=== PATIENT | female | born 1955 | race Caucasian/White ===

== ENCOUNTER → 2020-09-18 13:36 | Outpatient (CLI) | payer OTHER, SELFPAY ==
[2020-09-18 14:44] LABS: Alanine Aminotransferase 48 U/L (12-78); Albumin Level 4.5 g/dl (3.5-5.0); Albumin/Globulin Ratio 1.6 (1.1-1.8); Alkaline Phosphatase 197 U/L (38-126); Anion Gap 21.3 mEq/L (5-15); Aspartate Amino Transferase 130 U/L (14-36); Bilirubin,Total 0.6 mg/dl (0.2-1.3); Blood Urea Nitrogen 7 mg/dl (7-17); Calcium 9.7 mg/dl (8.4-10.2); Carbon Dioxide 16 mmol/L (22.0-30.0); Chloride 95 mmol/L (98-107); Estimated Glomerular Filt Rate 72 ml/min (>60); GFR (African American) 88 ML/MIN (>60); Globulin 2.8 g/dL (1.3-3.2); Glucose 102 mg/dl (74-100); Potassium 4.3 mmoL/L (3.5-5.1); Sodium 128 mmol/L (136-145); Total Protein,Serum 7.3 g/dl (6.3-8.2)
[2020-09-18 15:14] LABS: Thyroid Stimulating Hormone 3.87 uIU/mL (0.465-4.68)
[2020-09-18 19:04] LABS: Free T4 (Free Thyroxine) 1.12 ng/dl (0.78-2.19)
== END ==
PROVIDERS: Visit Provider Physician Assistant
DX: I10 Essential (primary) hypertension (principal); E03.9 Hypothyroidism, unspecified
CPT/HCPCS: 80053; 84439; 84443

== ENCOUNTER 2024-07-26 15:39 | Observation (INO) | payer MEDICARE, SELFPAY ==
[2024-07-26] VITALS (10 sets, daily range): BP systolic 100–121; BP diastolic 51–71; PULSE 81–90; RESP 16–20; TEMP 36.6–36.9; O2SAT 95–97; BMI 20.1
--- NOTE | 2024-07-26 15:53 | CT_ITS ---
PROCEDURE INFORMATION: Exam: CT Head Without Contrast Exam date and time: 07/26/2024 4:27 PM Age: 69 years old Clinical indication: Injury or trauma; Fall; Blunt trauma (contusions or hematomas); Consciousness not specified TECHNIQUE: Imaging protocol: Computed tomography of the head without contrast. Radiation optimization: All CT scans at this facility use at least one of these dose optimization techniques: automated exposure control; mA and/or kV adjustment per patient size (includes targeted exams where dose is matched to clinical indication); or iterative reconstruction. COMPARISON: CT CERVICAL SPINE WO CON 07/26/2024 4:27 PM FINDINGS: Brain: Age-related involutional changes and chronic microvascular ischemic disease. No evidence for acute transcortical infarct. No mass effect or midline shift. No extra-axial collection. No acute intracranial hemorrhage. Basal cisterns are patent. Cerebral ventricles: No ventriculomegaly. Paranasal sinuses: Mucosal thickening involving the left maxillary sinus. Mastoid air cells: Visualized mastoid air cells are well aerated. Bones: Unremarkable. No acute fracture. Soft tissues: Unremarkable. IMPRESSION: No evidence for acute transcortical infarct, acute intracranial hemorrhage, or mass effect.
--- NOTE | 2024-07-26 15:53 | CT_ITS ---
PROCEDURE INFORMATION: Exam: CT Cervical Spine Without Contrast Exam date and time: 07/26/2024 4:27 PM Age: 69 years old Clinical indication: Injury or trauma; Fall; Blunt trauma TECHNIQUE: Imaging protocol: Computed tomography of the cervical spine without contrast. Radiation optimization: All CT scans at this facility use at least one of these dose optimization techniques: automated exposure control; mA and/or kV adjustment per patient size (includes targeted exams where dose is matched to clinical indication); or iterative reconstruction. COMPARISON: CT HEAD/BRAIN WO CON 07/26/2024 4:27 PM FINDINGS: Bones: No acute fracture or traumatic subluxation. No spondylolisthesis. The atlantooccipital and atlantoaxial articulations are intact. Occipital condyles are intact. Facet joint alignments are maintained. Age-related degenerative disc disease. Multilevel degenerative changes of the cervical spine. Lungs: Lung apices are normal. Soft tissues: No prevertebral soft tissue swelling. IMPRESSION: No acute fracture or traumatic subluxation.
--- NOTE | 2024-07-26 15:53 | XR_ITS ---
PROCEDURE INFORMATION: Exam: XR Chest Exam date and time: 07/26/2024 4:31 PM Age: 69 years old Clinical indication: Injury or trauma; Fall; Blunt trauma (contusions or hematomas) TECHNIQUE: Imaging protocol: Radiologic exam of the chest. Views: 1 view. COMPARISON: CT CERVICAL SPINE WO CON 07/26/2024 4:27 PM FINDINGS: Lungs: Clear lungs. Pleural spaces: No pneumothorax. No sizable pleural effusion. Heart/Mediastinum: No cardiomegaly. Bones/joints: Unremarkable. IMPRESSION: Clear lungs.
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
[2024-07-26 16:15] LABS: Basophils # 0.1 K/mm3 (0-0.2); Eosinophils # 0.1 K/mm3 (0.0-0.4); Hematocrit 32.5 % (37.0-47.0); Hemoglobin 10.6 g/dL (12.2-16.2); Lymphocytes # 1.3 K/mm3 (0.7-4.5); Lymphocytes % 20.2 % (10-50); Mean Corpuscular HGB Conc 32.6 g/dL (31.8-35.4); Mean Corpuscular Hemoglobin 31.7 pg (27.0-31.2); Mean Corpuscular Volume 97.3 fl (81-99); Mean Platelet Volume 8.5 fl (7.4-10.4); Monocytes # 0.2 K/mm3 (0.1-1.0); Monocytes % 3.7 % (1.7-9.3); Neutrophils # 4.5 K/mm3 (1.8-7.8); Neutrophils % 71.7 % (37.0-80.0); Platelet Count 138 K/mm3 (142-424); Red Blood Count 3.34 M/mm3 (4.20-5.40); Red Cell Distribution Width 18.7 % (11.5-17.5); White Blood Count 6.3 K/mm3 (4.8-10.8)
[2024-07-26 16:22] LABS: Albumin Level 4.2 g/dl (3.5-5.0); Chloride 98 mmol/L (98-107)
[2024-07-26 16:23] LABS: Potassium 3.1 mmoL/L (3.5-5.1); Sodium 139 mmol/L (136-145)
--- NOTE | 2024-07-26 16:24 | PC.NURSE ---
pt to ct scan via stretcher
[2024-07-26 16:25] LABS: Alanine Aminotransferase 20 U/L (12-78); Alkaline Phosphatase 255 U/L (38-126); Anion Gap 21.1 mEq/L (5-15); Aspartate Amino Transferase 120 U/L (14-36); Bilirubin,Total 1.1 mg/dl (0.2-1.3); Blood Urea Nitrogen 2 mg/dl (7-17); Carbon Dioxide 23 mmol/L (22.0-30.0); Estimated Glomerular Filt Rate 123 ml/min (>60); GFR (African American) 149 ML/MIN (>60)
[2024-07-26 16:26] LABS: Albumin/Globulin Ratio 1.2 (1.1-1.8); Calcium 9.2 mg/dl (8.4-10.2); Ethyl Alcohol 230 mg/dl (0-10); Globulin 3.4 g/dL (1.3-3.2); Glucose 99 mg/dl (74-100); Lipase 96 U/L (23-300); Total Protein,Serum 7.6 g/dl (6.3-8.2)
[2024-07-26 16:30] LABS: Creatine Kinase < 20 U/L (30-135); Creatinine Clearance Estimated 49 mL/min (50-200)
--- NOTE | 2024-07-26 16:37 | ECG_ITS ---
APPROVED REPORT Exam: Resting ECG HR:82 bpm ECG Measurements Heart Rate 82 AXES IL 173 P 44 QRSd 94 QRS 58 QT 295 T 77 QTc 333 Conclusion SINUS RHYTHM LOW QRS VOLTAGE IN PRECORDIAL LEADS [QRS DEFLECTION < 1.0 mV IN CHEST LEADS] Wandering baseline, ST and T wave abnormalities in the inferior leads, no reciprocal changes, no STEMI Electronically signed by : CANDELARIA SOLOMON, 07/27/2024 06:06:49
--- NOTE | 2024-07-26 16:38 | PC.NURSE ---
ROUNDED ON THE PT. THE PT VOICES THAT SHE DOES NOT NEED ANYTHING AT THIS TIME. CALL LIGHT IS WITHIN REACH OF THE PT.
[2024-07-26 16:40] LABS: Troponin I < 0.01 ng/ml (0.00-0.034)
[2024-07-26] MEDS: MVI, ADULT NO.1 WITH VIT K 10 ML, THIAMINE HCL 100 MG, MAGNESIUM SULFATE 2 GM in LACTAT... 150 ML IV (17:09)
[2024-07-26] MEDS: FOLIC ACID 1MG TABLET 1 MG PO (17:14)
[2024-07-26 17:23] LABS: Microscopic, Urine URINE MICROSCOPIC (MICROSCOPIC)
--- NOTE | 2024-07-26 17:36 | PC.NURSE ---
ROUNDED ON THE PT. THE PT VOICES THAT SHE DOES NOT NEED ANYTHING AT THIS TIME. CALL LIGHT IS WITHIN REACH OF THE PT.
[2024-07-26 17:41] LABS: Appearance,Urine CLEAR (Clear); Blood, Urine Negative (Negative); Color,Urine YELLOW (Yellow); Glucose,Urine (UA) Negative (Negative); Ketones,Urine 1+ (Negative); Leukocyte Esterase,Urine 1+ (Negative); Nitrate,Urine Negative (Negative); Protein,Urine TRACE (Negative); Specific Gravity, Urine <= 1.005 (1.005-1.030)
[2024-07-26 18:20] LABS: Bilirubin,Urine 1+ (Negative)
[2024-07-26 18:22] LABS: Bacteria,Urine 1+ /lpf
[2024-07-26] MEDS: POTASSIUM CHLORIDE 20MEQ TAB 60 MEQ PO (18:32)
[2024-07-26 19:46] LABS: Troponin I < 0.01 ng/ml (0.00-0.034)
--- NOTE | 2024-07-26 19:49 | PC.NURSE ---
Rounding complete; no needs at this time
--- NOTE | 2024-07-26 20:00 | PC.NURSE ---
Rounding complete; no needs at this time
--- NOTE | 2024-07-26 20:14 | P.HP_ITS ---
<Statement entered by Adrián Pérez MD - 07/31/24 14:22> I personally examined the patient and agree with the plan of care outlined by the CERTIFED REFRIGERATION OPERATOR. History of Present Illness *Admission Date: 07/26/24 *Reason for visit:: Weakness *History of present illness: This is a 69-year-old female who has a past medical history significant for EtOH abuse, hypertension, hyperlipidemia who presents with a chief complaint of ground-level fall and weakness. Due to patient's symptoms, she presented to the emergency room for evaluation. While in the emergency room, CT scan of the head was negative for any acute intracranial process, CT scan of the cervical spine was negative for any acute process, and chest x-ray was negative. Patient had persistent weakness and some social concerns, so she has been admitted for further management. During my evaluation of the patient, patient states she fell from a standing position. Post fall, she was unable to get up. She states that her would not help her up off the ground or give her food. It is worth mentioning that patient did have an alcohol level that was elevated and her last reported drink was this morning. On exam patient does not appear to have any muscle wasting but she is very thin. She is currently denying any syncope, lightheadedness, dizziness, fever, chills, rigors, shortness of breath, chest pain, loss of bowel or bladder, nausea, vomiting, or diarrhea. Additional pertinent vitals obtained include a red blood cell count of 21.4, hemoglobin 10.6, hematocrit 32.5, platelet count of 138, potassium of 3.1, AST of 120, alkaline phosphate of 255, and serum alcohol level was 230. [facility] Disclaimer: The information contained in this section may have been updated after the bridger nt was seen, as this information can be updated by other users. Social History Smoking Status: Current every day smoker alcohol intake: current current occupational status: unemployed Travel in the last 8 weeks: None Review of Systems Review of Systems Review of systems:: pertinent systems reviewed and negative unless documented below Constitutional Constitutional: Reports system reviewed and no additional complaints, except as documented Eyes Eyes: Reports system reviewed and no additional complaints, except as documented ENT Ears, Nose, Mouth, and Throat: Reports system reviewed and no additional complaints, except as documented *Cardiovascular Cardiovascular: Reports system reviewed and no additional complaints, except as documented *Respiratory Respiratory: Reports system reviewed and no additional complaints, except as documented *Gastrointestinal Gastrointestinal: Reports system reviewed and no additional complaints, except as documented *Genitourinary Genitourinary: Reports system reviewed and no additional complaints, except as documented *Musculoskeletal Musculoskeletal: Reports atrophy and Reports muscle weakness Integumentary/Breasts Skin/Breast: Reports system reviewed and no additional complaints, except as documented *Neurologic Neurologic: Reports system reviewed and no additional complaints, except as documented Psychiatric Psychiatric: Reports system reviewed and no additional complaints, except as documented Endocrine Endocrine: Reports system reviewed and no additional complaints, except as documented Hematologic/Lymphatic Hematologic/Lymphatic: Reports system reviewed and no additional complaints, except as documented Allergic/Immunologic Allergic/Immunologic: Reports system reviewed and no additional complaints, except as documented Meds Home Medications and Allergies Home Medications ?Medication ?Instructions ?Recorded ?Confirmed ?Type Unobtainable 07/26/24 07/26/24 History New Prescriptions to Start Prescriptions: Allergies Allergy/AdvReac Type Severity Reaction Status Date / Time No Known Allergies Allergy Verified 07/26/24 16:27 Exam Data for Last 24 hours Vital signs and Labs for Last 24 Hours: Temp Pulse Resp BP Pulse Ox O2 Del Method 98.4 F 81 20 112/65 96 Room Air 07/26/24 15:39 07/26/24 19:30 07/26/24 19:30 07/26/24 19:30 07/26/24 17:30 07/26/24 17:30 Laboratory Results - last 24 hr 07/26/24 16:00: WBC 6.3, RBC 3.34 L, Hgb 10.6 L, Hct 32.5 L, MCV 97.3, MCH 31.7 H, MCHC 32.6, RDW 18.7 H, Plt Count 138 L, MPV 8.5, Neut % (Auto) 71.7, Lymph % (Auto) 20.2, [place] % (Auto) 3.7, Eos % (Auto) 1.0, Baso % (Auto) 1.0, Neut # (Auto) 4.5, Lymph # (Auto) 1.3, [place] # (Auto) 0.2, Eos # (Auto) 0.1, Baso # (Auto) 0.1, Sodium 139, Potassium 3.1 L, Chloride 98, Carbon Dioxide 23, Anion Gap 21.1 H, BUN 2 L, Creatinine 0.50 L, Estimated Creat Clear 49, Estimated GFR 123, Est GFR ( Amer) 149, Glucose 99, Calcium 9.2, Total Bilirubin 1.1, AST 120 H, ALT 20, Alkaline Phosphatase 255 H, Total Creatine Kinase < 20 L, Troponin I < 0.01, Total Protein 7.6, Albumin 4.2, Globulin 3.4 H, Albumin/Globulin Ratio 1.2, Lipase 96, Plasma/Serum Alcohol 230 H 07/26/24 17:15: Urine Color Yellow, Urine Appearance Clear, Urine pH 7.0, Ur Specific [place] <= 1.005, Urine Protein Trace, Urine Glucose (UA) Negative, Urine Ketones 1+, Urine Blood Negative, Urine Nitrate Negative, Urine Bilirubin 1+ A, Urine Urobilinogen 1.0, Ur Leukocyte Esterase 1+ A, Urine RBC None, Urine WBC 3-5, Ur Squamous Epith Cells 3-5, Urine Bacteria 1+ 07/26/24 18:59: Troponin I < 0.01 I & O for Last 24 hours: Intake & Output 07/23/24 07/24/24 07/25/24 07/26/24 23:59 23:59 23:59 23:59 Weight 56.518 kg Constitutional Constitutional: no acute distress and thin *Routine HEENT Exam Head: Present normocephalic and atraumatic Eye: Present EOMI, PERRL and normal accommodation ENT: Present mucous membranes moist and mucous membranes dry *Routine Neck Exam Neck: Present supple and full ROM *Routine Respiratory Exam Respiratory: Present normal respiratory effort and able to speak in complete sentences *Routine Cardiovascular Exam Cardiovascular: Present RRR, Normal S1 and Normal S2 *Routine Abdominal Exam Abdominal: Present soft and normoactive bowel sounds *Routine Rectal Exam Rectal:: deferred *Routine Genitalia Exam Genitalia:: deferred *Routine Extremities Exam Extremities: Present full ROM, pulses intact and normal capillary refill Routine Back/Spine/Pelvis Exam Back/Spine: Present full ROM *Routine Skin Exam Skin: Present intact, dry and warm *Routine Neurological Exam Neurological: Present alert, oriented X3, CN II-XII intact and normal speech Routine Psychiatric Exam Psychiatric: Present normal affect, normal thought process, cooperative, good insight and good judgment H&P: Result Impressions 69-year-old female presents with profound lower extremity weakness and was down for unknown period of time. Reports that would not help her up off the floor nor would he give her any food or water. Notably, patient does have an elevated alcohol level Assessment and Plan *Assessment and plan (1) Ground-level fall: Status: Acute Category: Medical Code(s): W18.30XA - Fall on same level, unspecified, initial encounter (2) Weakness: Status: Acute Category: Medical Code(s): R53.1 - Weakness (3) Hypokalemia: Status: Acute Category: Medical Code(s): E87.6 - Hypokalemia (4) Elevated liver enzymes: Status: Acute Category: Medical Code(s): R74.8 - Abnormal levels of other serum enzymes (5) Elevated ETOH level: Status: Acute Qualifiers: Blood alcohol level: 200-239 mg/100 ml Qualified Code(s): Y90.7 - Blood alcohol level of 200-239 mg/100 ml Category: Medical Code(s): R78.0 - Finding of alcohol in blood (6) Thrombocytopenia: Status: Acute Category: Medical Code(s): D69.6 - Thrombocytopenia, unspecified Plan Assessment: Ground-level fall without trauma -CT scans of head and cervical spine with within normal limits Weakness -Physical therapy evaluation -Occupational Therapy evaluation -Up to chair at least twice a day Hypokalemia -Patient was given 60 mEq of potassium while in the emergency room -Monitor potassium level daily Elevated liver enzymes -Most likely in the setting of chronic alcohol usage -Obtain hepatic ultrasound -Will consider hepatic workup EtOH intoxication -More than likely this will metabolize over the next 8 hours -Patient drinks about a pint of vodka a day -Place patient on CIWA protocol -100 mg of thiamine IV daily Thrombocytopenia -No active bleeding is seen -Most likely in setting of liver dysfunction Plan: Admit patient to the MedSurg unit Up to chair twice daily Vital signs every shift Cardiac diet CBC/BMP daily 40 mg Lovenox subcu daily for DVT prophylaxis 25 mg of hydralazine p.o. 3 times daily as needed systolic blood pressure greater than 180 or diastolic blood pressure greater than 110 21 mg nicotine patch daily 4 mg Zofran IV push. Hours. Nausea vomit Full code I will discuss this case with attending physician and I look forward to more input
--- NOTE | 2024-07-26 20:29 | PC.NURSE ---
Report given to Shruthi
--- NOTE | 2024-07-26 20:35 | PC.NURSE ---
pt arrived to floor from ed via stretcher at 2033.
[2024-07-26] MEDS: 0.9 % SODIUM CHLORIDE 1000ML 1,000 ML 100 ML IV (20:55)
[2024-07-26] MEDS: ENOXAPARIN 40MG/0.4ML SYRINGE 40 MG SUBCUT (20:55)
[2024-07-26] MEDS: NICOTINE 21MG/24HR PATCH 21 MG TD (20:55)
[2024-07-26] MEDS: ACETAMINOPHEN 325MG TAB 650 MG PO (22:04)
[2024-07-26 22:35] LABS: Troponin I < 0.01 ng/ml (0.00-0.034)
--- NOTE | 2024-07-26 23:40 | PC.NURSE ---
pt very pleasant and a&o x4. no skin issues. reports no significant past medical hx or that she takes any daily meds, only take Benadryl as needed for allergies or for sleep. states shes fallen twice in the last 6 months, both times she was drinking. reports she drinks about a cup of vodka a day 4-5 times a week and has never experienced withdraw symptoms. Kwasi called and states pt goes through a fifth of vodka every 5 days also saying pt has not ate well in the last 3 months saying she stays in the living room drinking . pt told this nurse she does need help with ADLs at home and she is unable to fix her own meals. pt does not use any assistive devices at home but she uses the furniture to walk around. fed pt a sandwich, chips, milk and water, pt ate <50%. CIWA score of 1 when pt got to floor, only complaint was a headache. pt aware to call out and not get up by herself. currently sleeping. cb within reach, bed alarm and seizure pads in place for pt safety. no concerns at this time
--- NOTE | 2024-07-27 | US_ITS ---
FINAL REPORT CLINICAL HISTORY: JOEY LIVER ENZYMES COMPARISON: None FINDINGS: Sonographic images of the right upper quadrant were obtained. The pancreas is partially obscured. The liver shows diffuse echogenicity compatible with fatty change. The liver is otherwise normal in size. No focal masses are seen. Multiple small gallstones measuring up to 4 mm are noted. There is no evidence of biliary ductal dilatation.The common duct measures 4mm. There is no ascites. Limited images of the right kidney are unremarkable. IMPRESSION: Fatty liver. Uncomplicated cholelithiasis. Reviewed, Interpreted and Dictated by Beatriz Davis MD Transcribed by Gayatri Varma Authenticated and . [facility]
[2024-07-27 04:00] VITALS: BP 105/66; PULSE 87; RESP 18; TEMP 36.8; O2SAT 96
[2024-07-27] MEDS: 0.9 % SODIUM CHLORIDE 1000ML 1,000 ML 100 ML IV (05:56)
[2024-07-27 07:12] LABS: Chloride 101 mmol/L (98-107); Sodium 134 mmol/L (136-145)
[2024-07-27 07:13] LABS: Potassium 3.9 mmoL/L (3.5-5.1)
[2024-07-27 07:16] LABS: Anion Gap 13.9 mEq/L (5-15); Blood Urea Nitrogen 5 mg/dl (7-17); Calcium 8.2 mg/dl (8.4-10.2); Carbon Dioxide 23 mmol/L (22.0-30.0); Creatinine Clearance Estimated 49 mL/min (50-200); Estimated Glomerular Filt Rate 123 ml/min (>60); GFR (African American) 149 ML/MIN (>60); Glucose 79 mg/dl (74-100)
[2024-07-27 07:35] LABS: Basophils % 0.7 % (0.1-2.0); Eosinophils # 0.1 K/mm3 (0.0-0.4); Eosinophils % 1.1 % (0.1-12.0); Hematocrit 25.4 % (37.0-47.0); Lymphocytes # 0.8 K/mm3 (0.7-4.5); Lymphocytes % 17.5 % (10-50); Mean Corpuscular HGB Conc 32.3 g/dL (31.8-35.4); Mean Corpuscular Hemoglobin 31.9 pg (27.0-31.2); Mean Corpuscular Volume 98.8 fl (81-99); Mean Platelet Volume 9.1 fl (7.4-10.4); Monocytes # 0.2 K/mm3 (0.1-1.0); Monocytes % 5.3 % (1.7-9.3); Neutrophils # 3.2 K/mm3 (1.8-7.8); Platelet Count 113 K/mm3 (142-424); Red Blood Count 2.57 M/mm3 (4.20-5.40); White Blood Count 4.4 K/mm3 (4.8-10.8)
[2024-07-27 07:49] VITALS: BP 106/57; PULSE 81; RESP 18; TEMP 36.8; O2SAT 98
--- NOTE | 2024-07-27 07:50 | PC.NURSE ---
Pauline in radiology called to inquire about pt NPO status due to order for liver ultrasound. pt had no NPO order in, therefore she received a cardiac tray this morning and ate. ultrasound rescheduled for 1300. pt NPO order placed and pt educated on NPO status. pt agreeable.
--- NOTE | 2024-07-27 08:22 | HMH.PHAINT1 ---
Pharmacy Intervention Comments: HOME MEDICATION LIST VERIFIED WITH PATIENT
[2024-07-27 08:40] VITALS: BP 106/57; BP 115/57; BP 116/64; PULSE 106; PULSE 84; PULSE 89
[2024-07-27 08:45] LABS: Hemoglobin 8.4 g/dL (12.2-16.2)
[2024-07-27 09:10] LABS: Magnesium 1.1 mg/dl (1.6-2.3); Phosphorous 2.6 mg/dl (2.5-4.5)
[2024-07-27 09:11] LABS: Alanine Aminotransferase 21 U/L (12-78); Albumin Level 3.2 g/dl (3.5-5.0); Albumin/Globulin Ratio 1.1 (1.1-1.8); Alkaline Phosphatase 238 U/L (38-126); Anion Gap 16.9 mEq/L (5-15); Aspartate Amino Transferase 111 U/L (14-36); Bilirubin,Total 1.2 mg/dl (0.2-1.3); Blood Urea Nitrogen 6 mg/dl (7-17); Calcium 8.4 mg/dl (8.4-10.2); Carbon Dioxide 23 mmol/L (22.0-30.0); Chloride 99 mmol/L (98-107); Creatinine Clearance Estimated 49 mL/min (50-200); Estimated Glomerular Filt Rate 123 ml/min (>60); GFR (African American) 149 ML/MIN (>60); Globulin 2.8 g/dL (1.3-3.2); Glucose 76 mg/dl (74-100); Potassium 3.9 mmoL/L (3.5-5.1); Sodium 135 mmol/L (136-145)
[2024-07-27 09:11] LABS: Prealbumin 20 mg/dL (10-36)
[2024-07-27] MEDS: THIAMINE 100MG TABLET 100 MG PO (09:31)
[2024-07-27] MEDS: PANTOPRAZOLE 40MG VIAL 40 MG IV (09:32)
[2024-07-27] MEDS: NICOTINE 21MG/24HR PATCH 21 MG TD (09:32)
[2024-07-27] MEDS: MVI, ADULT NO.1 WITH VIT K 10 ML, THIAMINE HCL 100 MG, MAGNESIUM SULFATE 2 GM in LACTAT... 125 ML IV (09:32)
[2024-07-27] MEDS: ENOXAPARIN 40MG/0.4ML SYRINGE 40 MG SUBCUT (09:32)
[2024-07-27] MEDS: SODIUM CHLORIDE 0.9% 10ML VIAL 10 ML IV (09:32)
--- NOTE | 2024-07-27 09:37 | HMH.OTEV ---
OT Inpatient Evaluation Rehab OT IP Evaluation Start: 07/26/24 20:08 Freq: ONCE Status: Active Protocol: Document 07/27/24 09:31 SAVANNAH (Rec: 07/27/24 09:37 [facility] [id number]) Rehab OT IP Assessment Subjective History Pt oriented x 3 on arrival. Pt agreeable to engage in therapy evaluation. Pt admitted to [facility] on 07/26/24 due to failure to thrive and weakness. History and physical: This is a 69-year-old female who has a past medical history significant for EtOH abuse, hypertension, hyperlipidemia who presents with a chief complaint of ground-level fall and weakness. Due to patient 's symptoms, she presented to the emergency room for evaluation. While in the emergency room, CT scan of the head was negative for any acute intracranial process, CT scan of the cervical spine was negative for any acute process, and chest x-ray was negative. Patient had persistent weakness and some social concerns, so she has been admitted for further management. During my evaluation of the patient, patient states she fell from a standing position. Post fall, she was unable to get up. She states that her would not help her up off the ground or give her food. It is worth mentioning that patient did have an alcohol level that was elevated and her last reported drink was this morning. On exam patient does not appear to have any muscle wasting but she is very thin. She is currently denying any syncope, lightheadedness, dizziness, fever, chills, rigors, shortness of breath, chest pain, loss of bowel or bladder , nausea, vomiting, or diarrhea. Additional pertinent vitals obtained include a red blood cell count of 21.4, hemoglobin 10.6, hematocrit 32.5, platelet count of 138, potassium of 3.1 , AST of 120, alkaline phosphate of 255, and serum alcohol level was 230. Subjective I didn't get out of bed much. Pt reports prior to being in the hospital, she lived at home with her . Pt claims normally she is independent with ADLs, but dependent upon for completion of all IADLs. Pt did not use a walker during functional transfers, but admits to furniture walking due to increased unsteadiness. Pt no longer drove. Pt also admits she did not get out of bed often due to weakness. Objective Patient Orientation Person,Place,Birthday Right Upper Extremity Gross ROM Min Limitation <25% Left Upper Extremity Gross ROM Min Limitation <25% Shoulder ROM Limitations Muscle Weakness Elbow ROM Limitations Muscle Weakness Wrist Limitations of Range of Motion Muscle Weakness Bed Mobility bed mobility-scooting,bed mobility - supine/sit Assist Level Contact Guard/Hand Hold Transfer Training Sit/Stand Transfer Assist Level Minimal x 2 (25% assist) Lower Body Dressing Ability Standby Assistance Rehab OT IP prob,goals,plan Problems Date of Evaluation: 07/27/24 OT IP Problems Bed Mobility,Gait,Balance,Self care,Safety Rehab Potential Rehab Potential Good Equipment Needs Assistive Devices Rolling / Wheeled Walker Plan OT intervention Plan Bed Mobility,Transfers,Balance ,Self care,Safety,Therapeutic Exercise OT Plan Frequency Daily Duration LOS Discharge Goals Bed Mobility Ability Standby Assistance Sit to Stand Chair Transfer Ability Contact Guard/Hand Hold, Minimal x 1 (25% assist) Chair Transfer Ability Contact Guard/Hand Hold, Minimal x 1 (25% assist) Chair Transfer Technique Sit to/from Ambulatory Chair Transfer Assistive Devices Rolling Walker Lower Body Dressing Ability Standby Assistance Upper Body Dressing Ability Standby Assistance Bathing Ability Standby Assistance Performing Toilet Hygiene Ability Standby Assistance Overall Commode/Toilet Transfer Ability Contact Guard Commode/Toilet Transfer Technique Sit to/from Ambulatory Discharge Plan OT Discharge Plan Pt will continue to be seen for OT services while at [facility]. Pt can return home with husbands assistance once she is medically stable per physician. Therapist recommends OT evaluation upon returning home for continued skilled therapy services. Eval Complexity Eval Charge Codes 99245 - Moderate Complexity PHYSICIAN CERTIFICATION: I certify the specified therapy services for Julia Jaime are required, authorized, and reviewed every 30 days.
[2024-07-27 09:52] LABS: Adenovirus,PCR Not Detected (NotDetected); Bordetella Pertussis Not Detected (NotDetected); Chlamydophila Pneumoniae, PCR Not Detected (NotDetected); Coronavirus 19, PCR Not Detected (NotDetected); Coronavirus 229E Not Detected (NotDetected); Coronavirus NL63 Not Detected (NotDetected); Coronavirus OC43 Not Detected (NotDetected); Coronovirus HKU1,PCR Not Detected (NotDetected); Human Metapneumovirus Not Detected (NotDetected); Influenza A, PCR Not Detected (NotDetected); Influenza AH1, 2009 Not Detected (NotDetected); Influenza AH1, PCR Not Detected (NotDetected); Influenza AH3,PCR Not Detected (NotDetected); Influenza B, PCR Not Detected (NotDetected); Mycoplasma Pneumoniae, PCR Not Detected (NotDetected); Parainfluenza 1, PCR Not Detected (NotDetected); Parainfluenza 2, PCR Not Detected (NotDetected); Parainfluenza 3, PCR Not Detected (NotDetected); Parainfluenza 4, PCR Not Detected (NotDetected); Respiratory Syncytial Virus Not Detected (NotDetected); Rhinovirus/Enterovirus Not Detected (NotDetected)
--- NOTE | 2024-07-27 10:08 | PC.NURSE ---
CIWA q4 dc due to pt scoring less than 8 for 3 consecutive measures
[2024-07-27 10:13] LABS: Free T4 (Free Thyroxine) 1.33 ng/dl (0.78-2.19)
--- NOTE | 2024-07-27 10:18 | SW/DCPLANNER ---
Addendum entered by [facility] 07/30/24 14:03: [facility] stated that patient will be accepted for services. Addendum entered by [facility] 07/30/24 12:03: Due to location patient information has been faxed to [facility] . Addendum entered by [facility] 07/30/24 08:01: Patient information/order faxed to Tia hernandez/ [facility]. Addendum entered by Yusra Reagan 07/27/24 15:22: Spoke with [facility] and they cant accept patient at this time because she doesnt have an established primary care. Bradley Clarke Addendum entered by [facility] 07/27/24 14:15: Patient information/order has been faxed to [facility]. Original Note: I spoke w/ this patient regarding plans once medically stable for discharge. PT/OT evaluated patient and recommended returning home w/ home health services. Patient is agreeable to home health and does not have an agency preference. Patient voiced that she does feel safe to return home w/ her . I did discuss inpatient vs outpatient alcohol resources w/ patient: not interested at this time but would like to to think about options. I also provided patient w/ [facility] Resource List which includes further information and includes local AA meeting dates and time. Patient will need a rolling walker at time of discharge and prefer this be ordered from [facility]. I will continue to follow up w/ this patient until medically stable for discharge. Discharge date is unknown at this time.
[2024-07-27 10:32] LABS: Thyroid Stimulating Hormone 6.47 uIU/mL (0.465-4.68)
--- NOTE | 2024-07-27 10:36 | HMH.PTEV ---
Physical Therapy Evaluation Rehab PT IP Evaluation Start: 07/26/24 20:08 Freq: ONCE Status: Active Protocol: Document 07/27/24 09:58 SHAKA (Rec: 07/27/24 10:36 SHAKA [id number]) Subjective/History History History 69-year-old female who has a past medical history significant for EtOH abuse, hypertension, hyperlipidemia who presents with a chief complaint of ground-level fall and weakness. She reports she lives with her , who helps with most of her ADLs, and she ambulates very little at baseline, but without using an AD. She states, I usually just go from my bedroom to my bathroom and hold onto stuff when I walk. She reports 4 HERRERA the home, no handrail. Subjective Subjective Currently she reports no c/o pain, but generally feels weak . She agrees to mobility assessment, but appears somewhat anxious to perform any OOB activity. Rehab PT IP Eval Objective Appearance Patient Behavior Appropriate Patient Orientation Person,Place,Time Difficulty following instructions none Speech Pattern Clear Ambulation Patient Able to Ambulate Yes Ambulation Observation IP General Gait Pattern Observation Shuffling Step Ambulation Distance (feet) 15 Ambulation Assistive Device None Ambulation Ability Minimal x 1 (25% assist) Balance Ability to Arise Able, uses arms to help Sitting Balance Steady, safe Standing Balance Unsteady Dynamic Sitting Balance Ability Good Dynamic Standing Balance Ability Poor Transfers Bed Transfer Ability Contact Guard/Hand Hold Chair Transfer Ability Contact Guard/Hand Hold Sit to Stand Bed Transfer Ability Contact Guard/Hand Hold Sit to Stand Chair Transfer Ability Contact Guard/Hand Hold Rehab PT IP prob,goals,plan Problems Date of Evaluation: 07/27/24 PT IP Problems Bed Mobility,Transfers,Gait Rehab Potential Rehab Potential Good Equipment Needs Assistive Devices Rolling / Wheeled Walker Plan PT Intervention Plan Bed Mobility,Transfers,Gait, Therapeutic Exercise PT Plan Frequency Daily Duration LOS Discharge Goals Bed Transfer Ability Contact Guard/Hand Hold Sit to Stand Chair Transfer Ability Supervision/Stand by Ambulation Assistive Device Rolling Walker Ambulation Distance (feet) 30 Discharge Plan PT Discharge Plan Pt is currently appropriate to return home with family assist once medically stable for d/c. Recommend home health therapy after return home. Skilled therapy is indicated to improve transfer, increase ambulation tolerance, and improve standing balance in order to return pt to [facility], Eval Complexity Eval Charge Codes 99576 - High Complexity PHYSICIAN CERTIFICATION: I certify the specified therapy services for Julia Jaime are required, authorized, and reviewed every 30 days.
[2024-07-27 10:51] LABS: Vitamin B12 715 pg/mL (239-931)
[2024-07-27 11:19] LABS: Folate 4.25 ng/mL
[2024-07-27 11:21] LABS: Amphetamine/Metha Screen,Urine Negative ng/ml (<1000); Barbiturates Screen,Urine Negative ng/ml (<200)
[2024-07-27 11:22] LABS: Benzodiazepines Screen,Urine Negative ng/ml (<200)
[2024-07-27 11:23] LABS: Opiate Screen,Urine Negative ng/ml (<300)
[2024-07-27 11:24] LABS: Phencyclidine Screen,Urine Negative ng/ml (<25)
[2024-07-27 11:25] LABS: Cannabinoid Screen,Urine Negative ng/ml (<50); Cocaine Screen,Urine Negative ng/ml (<300)
[2024-07-27 11:26] LABS: Methadone Screen,Urine Negative ng/ml (<300)
--- NOTE | 2024-07-27 12:04 | CARE MANAGER ---
Patient requires the use of walker for ambulation sandra she has a mobility impairment that cannot be corrected by a cane. TYRONE Amin
[2024-07-27 12:15] LABS: Iron 101 ug/dL (37-170)
[2024-07-27 12:24] LABS: Total Iron Binding Capacity 161 ug/dL (265-497)
[2024-07-27] MEDS: CEFTRIAXONE 1 GM 1 GM in 0.9 % SODIUM CHLORIDE 50 ML IV (12:31)
[2024-07-27 12:52] LABS: Ferritin 245 ng/ml (11.1-264)
--- NOTE | 2024-07-27 13:44 | EXP.DC.SUM ---
General Admission date:: 07/26/24 HPI HPI HPI: This is a 69-year-old female who has a past medical history significant for EtOH abuse, hypertension, hyperlipidemia who presents with a chief complaint of ground-level fall and weakness. Due to patient's symptoms, she presented to the emergency room for evaluation. While in the emergency room, CT scan of the head was negative for any acute intracranial process, CT scan of the cervical spine was negative for any acute process, and chest x-ray was negative. Patient had persistent weakness and some social concerns, so she has been admitted for further management. During my evaluation of the patient, patient states she fell from a standing position. Post fall, she was unable to get up. She states that her would not help her up off the ground or give her food. It is worth mentioning that patient did have an alcohol level that was elevated and her last reported drink was this morning. On exam patient does not appear to have any muscle wasting but she is very thin. She is currently denying any syncope, lightheadedness, dizziness, fever, chills, rigors, shortness of breath, chest pain, loss of bowel or bladder, nausea, vomiting, or diarrhea. Additional pertinent vitals obtained include a red blood cell count of 21.4, hemoglobin 10.6, hematocrit 32.5, platelet count of 138, potassium of 3.1, AST of 120, alkaline phosphate of 255, and serum alcohol level was 230. Hospital Course Hospital Course Hospital Course: Mr. Sow is a 69-year-old female with who presented after a fall after drinking and was admitted for physical deconditioning/functional decline. #Alcohol intoxication #Fall #UTI #Physical deconditioning ? Initial serum alcohol level 230, UA suggesting UTI. Patient states she uses alcohol for her insomnia. ? PT/OT consulted, recommended home health PT/OT. Patient has been referred. ? Discharged with cefdinir for 4 days. Strongly encouraged tapering alcohol. #Hypothyroidism ? TSH elevated to 6.47, free T4 normal. Has not filled her levothyroxine 50 mcg in a while. ? Discharged with levothyroxine 50 mcg. Recommend repeat TFTs with PCP in 4 to 6 weeks. #Insomnia ? Discharged with trazodone 25 to 50 mg as needed for sleep. #Low folic acid ? Discharged with multivitamin with folic acid. Total time spent on discharge: 32 minutes on chart review, counseling, documentation, and direct care with patient. Exam Data for Last 24 hours Vital signs and Labs for Last 24 Hours: Temp Pulse Resp BP Pulse Ox O2 Del Method 98.2 F 84 18 106/57 L 98 Room Air 07/27/24 07:49 07/27/24 08:40 07/27/24 07:49 07/27/24 08:40 07/27/24 07:49 07/27/24 11:00 Laboratory Results - last 24 hr 07/26/24 16:00: WBC 6.3, RBC 3.34 L, Hgb 10.6 L, Hct 32.5 L, MCV 97.3, MCH 31.7 H, MCHC 32.6, RDW 18.7 H, Plt Count 138 L, MPV 8.5, Neut % (Auto) 71.7, Lymph % (Auto) 20.2, [place] % (Auto) 3.7, Eos % (Auto) 1.0, Baso % (Auto) 1.0, Neut # (Auto) 4.5, Lymph # (Auto) 1.3, [place] # (Auto) 0.2, Eos # (Auto) 0.1, Baso # (Auto) 0.1, Sodium 139, Potassium 3.1 L, Chloride 98, Carbon Dioxide 23, Anion Gap 21.1 H, BUN 2 L, Creatinine 0.50 L, Estimated Creat Clear 49, Estimated GFR 123, Est GFR ( Amer) 149, Glucose 99, Calcium 9.2, Total Bilirubin 1.1, AST 120 H, ALT 20, Alkaline Phosphatase 255 H, Total Creatine Kinase < 20 L, Troponin I < 0.01, Total Protein 7.6, Albumin 4.2, Globulin 3.4 H, Albumin/Globulin Ratio 1.2, Prealbumin 20, Lipase 96, Plasma/Serum Alcohol 230 H 07/26/24 17:15: Urine Color Yellow, Urine Appearance Clear, Urine pH 7.0, Ur Specific [place] <= 1.005, Urine Protein Trace, Urine Glucose (UA) Negative, Urine Ketones 1+, Urine Blood Negative, Urine Nitrate Negative, Urine Bilirubin 1+ A, Urine Urobilinogen 1.0, Ur Leukocyte Esterase 1+ A, Urine RBC None, Urine WBC 3-5, Ur Squamous Epith Cells 3-5, Urine Bacteria 1+ 07/26/24 18:59: Troponin I < 0.01 07/26/24 22:00: Troponin I < 0.01 07/27/24 05:40: WBC 4.4 L D, RBC 2.57 L, Hgb 8.4 L D, Hct 25.4 L, MCV 98.8, MCH 31.9 H, MCHC 32.3, RDW 19.0 H, Plt Count 113 L, MPV 9.1, Neut % (Auto) 74.0, Lymph % (Auto) 17.5, [place] % (Auto) 5.3, Eos % (Auto) 1.1, Baso % (Auto) 0.7, Neut # (Auto) 3.2, Lymph # (Auto) 0.8, [place] # (Auto) 0.2, Eos # (Auto) 0.1, Baso # (Auto) 0.0, Sodium 134 L 07/27/24 05:40: Sodium 135 L, Potassium 3.9 D 07/27/24 05:40: Potassium 3.9, Chloride 101 07/27/24 05:40: Chloride 99, Carbon Dioxide 23 07/27/24 05:40: Carbon Dioxide 23, Anion Gap 13.9 07/27/24 05:40: Anion Gap 16.9 H, BUN 5 L D 07/27/24 05:40: BUN 6 L, Creatinine 0.50 L 07/27/24 05:40: Creatinine 0.50 L, Estimated Creat Clear 49 07/27/24 05:40: Estimated Creat Clear 49, Estimated GFR 123 07/27/24 05:40: Estimated GFR 123, Est GFR ( Amer) 149 07/27/24 05:40: Est GFR ( Amer) 149, Glucose 79 D 07/27/24 05:40: Glucose 76, Calcium 8.2 L 07/27/24 05:40: Calcium 8.4, Phosphorus 2.6, Magnesium 1.1 L, Total Bilirubin 1.2, AST 111 H, ALT 21, Alkaline Phosphatase 238 H, Total Protein 6.0 L, Albumin 3.2 L D, Globulin 2.8, Albumin/Globulin Ratio 1.1 07/27/24 09:15: Iron 101, TIBC 161 L, Iron Saturation 62.04798 H, Ferritin 245, Vitamin B12 715, Folate 4.25, TSH 6.47 H, Free T4 1.33 07/27/24 09:40: Chlamy pneumoniae PCR Not detected, Adenovirus (PCR) Not detected, B. pertussis DNA (PCR) Not detected, Coronavirus OC43 (PCR) Not detected, Coronavirus HKU1 (PCR) Not detected, Coronavirus 229E (PCR) Not detected, SARS-CoV-2 (PCR) Not detected, Coronavirus NL63 (PCR) Not detected, Human Metapneumovir PCR Not detected, Influenza A (H1) PCR Not detected, Influ A (H1N1/09) PCR Not detected, Influenza A (H3) PCR Not detected, Influenza Type A (PCR) Not detected, Influenza Type B (PCR) Not detected, M. pneumoniae (PCR) Not detected, Parainfluenza 1 (PCR) Not detected, Parainfluenza 2 (PCR) Not detected, Parainfluenza 3 (PCR) Not detected, Parainfluenza 4 (PCR) Not detected, RSV (PCR) Not detected, Entero/Rhino (PCR) Not detected 07/27/24 10:33: Urine Opiates Screen Negative, Urine Methadone Screen Negative, Ur Barbituates Screen Negative, Ur Phencyclidine Scrn Negative, Ur Amphetamines Screen Negative, U Benzodiazepines Scrn Negative, Urine Cocaine Screen Negative, U Marijuana (THC) Screen Negative I & O for Last 24 hours: Intake & Output 07/24/24 07/25/24 07/26/24 07/27/24 23:59 23:59 23:59 23:59 Intake Total 1629 / 1629 Output Total 0 / 0 Balance 1629 / 1629 Weight 56.608 kg 56.744 kg Constitutional Constitutional: no acute distress *Routine HEENT Exam Head: Present normocephalic Eye: Present EOMI and PERRL ENT: Present mucous membranes moist *Routine Neck Exam Neck: Present supple; Absent lymphadenopathy *Routine Respiratory Exam Respiratory: Present CTA bilaterally *Routine Cardiovascular Exam Cardiovascular: Present RRR *Routine Abdominal Exam Abdominal: Present soft and normoactive bowel sounds; Absent tenderness *Routine Extremities Exam Extremities: Absent cyanosis, clubbing or edema *Routine Skin Exam Skin: Present warm; Absent rash *Routine Neurological Exam Neurological: Present alert and oriented X3 Results Data Completed and Pending Labs on day of discharge: Labs from last 24 hours 07/27/24 07/27/2425 10:33 09:40 09:15 WBC RBC Hgb Hct MCV MCH MCHC RDW Plt Count MPV Neut % (Auto) Lymph % (Auto) [place] % (Auto) Eos % (Auto) Baso % (Auto) Neut # (Auto) Lymph # (Auto) [place] # (Auto) Eos # (Auto) Baso # (Auto) Sodium Potassium Chloride Carbon Dioxide Anion Gap BUN Creatinine Estimated Creat Clear Estimated GFR Est GFR ( Amer) Glucose Calcium Phosphorus Magnesium Iron 101 TIBC 161 L Iron Saturation 62.55688 H Ferritin 245 Total Bilirubin AST ALT Alkaline Phosphatase Total Creatine Kinase Troponin I Total Protein Albumin Globulin Albumin/Globulin Ratio Prealbumin Lipase Vitamin B12 715 Folate 4.25 TSH 6.47 H Free T4 1.33 Urine Color Urine Appearance Urine pH Ur Specific [place] Urine Protein Urine Glucose (UA) Urine Ketones Urine Blood Urine Nitrate Urine Bilirubin Urine Urobilinogen Ur Leukocyte Esterase Urine RBC Urine WBC Ur Squamous Epith Cells Urine Bacteria Urine Opiates Screen Negative Urine Methadone Screen Negative Ur Barbituates Screen Negative Ur Phencyclidine Scrn Negative Ur Amphetamines Screen Negative U Benzodiazepines Scrn Negative Urine Cocaine Screen Negative U Marijuana (THC) Screen Negative Plasma/Serum Alcohol Chlamy pneumoniae PCR Not detected Adenovirus (PCR) Not detected B. pertussis DNA (PCR) Not detected Coronavirus OC43 (PCR) Not detected Coronavirus HKU1 (PCR) Not detected Coronavirus 229E (PCR) Not detected SARS-CoV-2 (PCR) Not detected Coronavirus NL63 (PCR) Not detected Human Metapneumovir PCR Not detected Influenza A (H1) PCR Not detected Influ A (H1N1/09) PCR Not detected Influenza A (H3) PCR Not detected Influenza Type A (PCR) Not detected Influenza Type B (PCR) Not detected M. pneumoniae (PCR) Not detected Parainfluenza 1 (PCR) Not detected Parainfluenza 2 (PCR) Not detected Parainfluenza 3 (PCR) Not detected Parainfluenza 4 (PCR) Not detected RSV (PCR) Not detected Entero/Rhino (PCR) Not detected 07/27/24 07/27/24 07/27/24 05:40 05:40 05:40 WBC RBC Hgb Hct MCV MCH MCHC RDW Plt Count MPV Neut % (Auto) Lymph % (Auto) [place] % (Auto) Eos % (Auto) Baso % (Auto) Neut # (Auto) Lymph # (Auto) [place] # (Auto) Eos # (Auto) Baso # (Auto) Sodium Potassium Chloride Carbon Dioxide Anion Gap BUN Creatinine Estimated Creat Clear Estimated GFR Est GFR ( Amer) 149 Glucose 76 79 D Calcium 8.4 8.2 L Phosphorus 2.6 Magnesium 1.1 L Iron TIBC Iron Saturation Ferritin Total Bilirubin 1.2 AST 111 H ALT 21 Alkaline Phosphatase 238 H Total Creatine Kinase Troponin I Total Protein 6.0 L Albumin 3.2 L D Globulin 2.8 Albumin/Globulin Ratio 1.1 Prealbumin Lipase Vitamin B12 Folate TSH Free T4 Urine Color Urine Appearance Urine pH Ur Specific [place] Urine Protein Urine Glucose (UA) Urine Ketones Urine Blood Urine Nitrate Urine Bilirubin Urine Urobilinogen Ur Leukocyte Esterase Urine RBC Urine WBC Ur Squamous Epith Cells Urine Bacteria Urine Opiates Screen Urine Methadone Screen Ur Barbituates Screen Ur Phencyclidine Scrn Ur Amphetamines Screen U Benzodiazepines Scrn Urine Cocaine Screen U Marijuana (THC) Screen Plasma/Serum Alcohol Chlamy pneumoniae PCR Adenovirus (PCR) B. pertussis DNA (PCR) Coronavirus OC43 (PCR) Coronavirus HKU1 (PCR) Coronavirus 229E (PCR) SARS-CoV-2 (PCR) Coronavirus NL63 (PCR) Human Metapneumovir PCR Influenza A (H1) PCR Influ A (H1N1/09) PCR Influenza A (H3) PCR Influenza Type A (PCR) Influenza Type B (PCR) M. pneumoniae (PCR) Parainfluenza 1 (PCR) Parainfluenza 2 (PCR) Parainfluenza 3 (PCR) Parainfluenza 4 (PCR) RSV (PCR) Entero/Rhino (PCR) 07/27/24 07/27/24 07/27/24 05:40 05:40 05:40 WBC RBC Hgb Hct MCV MCH MCHC RDW Plt Count MPV Neut % (Auto) Lymph % (Auto) [place] % (Auto) Eos % (Auto) Baso % (Auto) Neut # (Auto) Lymph # (Auto) [place] # (Auto) Eos # (Auto) Baso # (Auto) Sodium Potassium Chloride Carbon Dioxide Anion Gap BUN Creatinine 0.50 L Estimated Creat Clear 49 49 Estimated GFR 123 123 Est GFR ( Amer) 149 Glucose Calcium Phosphorus Magnesium Iron TIBC Iron Saturation Ferritin Total Bilirubin AST ALT Alkaline Phosphatase Total Creatine Kinase Troponin I Total Protein Albumin Globulin Albumin/Globulin Ratio Prealbumin Lipase Vitamin B12 Folate TSH Free T4 Urine Color Urine Appearance Urine pH Ur Specific [place] Urine Protein Urine Glucose (UA) Urine Ketones Urine Blood Urine Nitrate Urine Bilirubin Urine Urobilinogen Ur Leukocyte Esterase Urine RBC Urine WBC Ur Squamous Epith Cells Urine Bacteria Urine Opiates Screen Urine Methadone Screen Ur Barbituates Screen Ur Phencyclidine Scrn Ur Amphetamines Screen U Benzodiazepines Scrn Urine Cocaine Screen U Marijuana (THC) Screen Plasma/Serum Alcohol Chlamy pneumoniae PCR Adenovirus (PCR) B. pertussis DNA (PCR) Coronavirus OC43 (PCR) Coronavirus HKU1 (PCR) Coronavirus 229E (PCR) SARS-CoV-2 (PCR) Coronavirus NL63 (PCR) Human Metapneumovir PCR Influenza A (H1) PCR Influ A (H1N1/09) PCR Influenza A (H3) PCR Influenza Type A (PCR) Influenza Type B (PCR) M. pneumoniae (PCR) Parainfluenza 1 (PCR) Parainfluenza 2 (PCR) Parainfluenza 3 (PCR) Parainfluenza 4 (PCR) RSV (PCR) Entero/Rhino (PCR) 07/27/24 07/27/24 07/27/24 05:40 05:40 05:40 WBC RBC Hgb Hct MCV MCH MCHC RDW Plt Count MPV Neut % (Auto) Lymph % (Auto) [place] % (Auto) Eos % (Auto) Baso % (Auto) Neut # (Auto) Lymph # (Auto) [place] # (Auto) Eos # (Auto) Baso # (Auto) Sodium Potassium Chloride Carbon Dioxide 23 Anion Gap 16.9 H 13.9 BUN 6 L 5 L D Creatinine 0.50 L Estimated Creat Clear Estimated GFR Est GFR ( Amer) Glucose Calcium Phosphorus Magnesium Iron TIBC Iron Saturation Ferritin Total Bilirubin AST ALT Alkaline Phosphatase Total Creatine Kinase Troponin I Total Protein Albumin Globulin Albumin/Globulin Ratio Prealbumin Lipase Vitamin B12 Folate TSH Free T4 Urine Color Urine Appearance Urine pH Ur Specific [place] Urine Protein Urine Glucose (UA) Urine Ketones Urine Blood Urine Nitrate Urine Bilirubin Urine Urobilinogen Ur Leukocyte Esterase Urine RBC Urine WBC Ur Squamous Epith Cells Urine Bacteria Urine Opiates Screen Urine Methadone Screen Ur Barbituates Screen Ur Phencyclidine Scrn Ur Amphetamines Screen U Benzodiazepines Scrn Urine Cocaine Screen U Marijuana (THC) Screen Plasma/Serum Alcohol Chlamy pneumoniae PCR Adenovirus (PCR) B. pertussis DNA (PCR) Coronavirus OC43 (PCR) Coronavirus HKU1 (PCR) Coronavirus 229E (PCR) SARS-CoV-2 (PCR) Coronavirus NL63 (PCR) Human Metapneumovir PCR Influenza A (H1) PCR Influ A (H1N1) PCR Influenza A (H3) PCR Influenza Type A (PCR) Influenza Type B (PCR) M. pneumoniae (PCR) Parainfluenza 1 (PCR) Parainfluenza 2 (PCR) Parainfluenza 3 (PCR) Parainfluenza 4 (PCR) RSV (PCR) Entero/Rhino (PCR) 07/27/24 07/27/24 07/27/24 05:40 05:40 05:40 WBC RBC Hgb Hct MCV MCH MCHC RDW Plt Count MPV Neut % (Auto) Lymph % (Auto) [place] % (Auto) Eos % (Auto) Baso % (Auto) Neut # (Auto) Lymph # (Auto) [place] # (Auto) Eos # (Auto) Baso # (Auto) Sodium 135 L Potassium 3.9 3.9 D Chloride 99 101 Carbon Dioxide 23 Anion Gap BUN Creatinine Estimated Creat Clear Estimated GFR Est GFR ( Amer) Glucose Calcium Phosphorus Magnesium Iron TIBC Iron Saturation Ferritin Total Bilirubin AST ALT Alkaline Phosphatase Total Creatine Kinase Troponin I Total Protein Albumin Globulin Albumin/Globulin Ratio Prealbumin Lipase Vitamin B12 Folate TSH Free T4 Urine Color Urine Appearance Urine pH Ur Specific [place] Urine Protein Urine Glucose (UA) Urine Ketones Urine Blood Urine Nitrate Urine Bilirubin Urine Urobilinogen Ur Leukocyte Esterase Urine RBC Urine WBC Ur Squamous Epith Cells Urine Bacteria Urine Opiates Screen Urine Methadone Screen Ur Barbituates Screen Ur Phencyclidine Scrn Ur Amphetamines Screen U Benzodiazepines Scrn Urine Cocaine Screen U Marijuana (THC) Screen Plasma/Serum Alcohol Chlamy pneumoniae PCR Adenovirus (PCR) B. pertussis DNA (PCR) Coronavirus OC43 (PCR) Coronavirus HKU1 (PCR) Coronavirus 229E (PCR) SARS-CoV-2 (PCR) Coronavirus NL63 (PCR) Human Metapneumovir PCR Influenza A (H1) PCR Influ A (H1N1) PCR Influenza A (H3) PCR Influenza Type A (PCR) Influenza Type B (PCR) M. pneumoniae (PCR) Parainfluenza 1 (PCR) Parainfluenza 2 (PCR) Parainfluenza 3 (PCR) Parainfluenza 4 (PCR) RSV (PCR) Entero/Rhino (PCR) 07/27/24 07/26/24 07/26/24 05:40 22:00 18:59 WBC 4.4 L D RBC 2.57 L Hgb 8.4 L D Hct 25.4 L MCV 98.8 MCH 31.9 H MCHC 32.3 RDW 19.0 H Plt Count 113 L MPV 9.1 Neut % (Auto) 74.0 Lymph % (Auto) 17.5 [place] % (Auto) 5.3 Eos % (Auto) 1.1 Baso % (Auto) 0.7 Neut # (Auto) 3.2 Lymph # (Auto) 0.8 [place] # (Auto) 0.2 Eos # (Auto) 0.1 Baso # (Auto) 0.0 Sodium 134 L Potassium Chloride Carbon Dioxide Anion Gap BUN Creatinine Estimated Creat Clear Estimated GFR Est GFR ( Amer) Glucose Calcium Phosphorus Magnesium Iron TIBC Iron Saturation Ferritin Total Bilirubin AST ALT Alkaline Phosphatase Total Creatine Kinase Troponin I < 0.01 < 0.01 Total Protein Albumin Globulin Albumin/Globulin Ratio Prealbumin Lipase Vitamin B12 Folate TSH Free T4 Urine Color Urine Appearance Urine pH Ur Specific [place] Urine Protein Urine Glucose (UA) Urine Ketones Urine Blood Urine Nitrate Urine Bilirubin Urine Urobilinogen Ur Leukocyte Esterase Urine RBC Urine WBC Ur Squamous Epith Cells Urine Bacteria Urine Opiates Screen Urine Methadone Screen Ur Barbituates Screen Ur Phencyclidine Scrn Ur Amphetamines Screen U Benzodiazepines Scrn Urine Cocaine Screen U Marijuana (THC) Screen Plasma/Serum Alcohol Chlamy pneumoniae PCR Adenovirus (PCR) B. pertussis DNA (PCR) Coronavirus OC43 (PCR) Coronavirus HKU1 (PCR) Coronavirus 229E (PCR) SARS-CoV-2 (PCR) Coronavirus NL63 (PCR) Human Metapneumovir PCR Influenza A (H1) PCR Influ A (H1N1/09) PCR Influenza A (H3) PCR Influenza Type A (PCR) Influenza Type B (PCR) M. pneumoniae (PCR) Parainfluenza 1 (PCR) Parainfluenza 2 (PCR) Parainfluenza 3 (PCR) Parainfluenza 4 (PCR) RSV (PCR) Entero/Rhino (PCR) 07/26/24 07/26/24 17:15 16:00 WBC 6.3 RBC 3.34 L Hgb 10.6 L Hct 32.5 L MCV 97.3 MCH 31.7 H MCHC 32.6 RDW 18.7 H Plt Count 138 L MPV 8.5 Neut % (Auto) 71.7 Lymph % (Auto) 20.2 [place] % (Auto) 3.7 Eos % (Auto) 1.0 Baso % (Auto) 1.0 Neut # (Auto) 4.5 Lymph # (Auto) 1.3 [place] # (Auto) 0.2 Eos # (Auto) 0.1 Baso # (Auto) 0.1 Sodium 139 Potassium 3.1 L Chloride 98 Carbon Dioxide 23 Anion Gap 21.1 H BUN 2 L Creatinine 0.50 L Estimated Creat Clear 49 Estimated GFR 123 Est GFR ( Amer) 149 Glucose 99 Calcium 9.2 Phosphorus Magnesium Iron TIBC Iron Saturation Ferritin Total Bilirubin 1.1 AST 120 H ALT 20 Alkaline Phosphatase 255 H Total Creatine Kinase < 20 L Troponin I < 0.01 Total Protein 7.6 Albumin 4.2 Globulin 3.4 H Albumin/Globulin Ratio 1.2 Prealbumin 20 Lipase 96 Vitamin B12 Folate TSH Free T4 Urine Color Yellow Urine Appearance Clear Urine pH 7.0 Ur Specific [place] <= 1.005 Urine Protein Trace Urine Glucose (UA) Negative Urine Ketones 1+ Urine Blood Negative Urine Nitrate Negative Urine Bilirubin 1+ A Urine Urobilinogen 1.0 Ur Leukocyte Esterase 1+ A Urine RBC None Urine WBC 3-5 Ur Squamous Epith Cells 3-5 Urine Bacteria 1+ Urine Opiates Screen Urine Methadone Screen Ur Barbituates Screen Ur Phencyclidine Scrn Ur Amphetamines Screen U Benzodiazepines Scrn Urine Cocaine Screen U Marijuana (THC) Screen Plasma/Serum Alcohol 230 H Chlamy pneumoniae PCR Adenovirus (PCR) B. pertussis DNA (PCR) Coronavirus OC43 (PCR) Coronavirus HKU1 (PCR) Coronavirus 229E (PCR) SARS-CoV-2 (PCR) Coronavirus NL63 (PCR) Human Metapneumovir PCR Influenza A (H1) PCR Influ A (H1N1/09) PCR Influenza A (H3) PCR Influenza Type A (PCR) Influenza Type B (PCR) M. pneumoniae (PCR) Parainfluenza 1 (PCR) Parainfluenza 2 (PCR) Parainfluenza 3 (PCR) Parainfluenza 4 (PCR) RSV (PCR) Entero/Rhino (PCR) DS: Diagnosis Discharge Diagnosis (1) Ground-level fall: Status: Acute Code(s): W18.30XA - Fall on same level, unspecified, initial encounter (2) Weakness: Status: Acute Code(s): R53.1 - Weakness (3) Hypokalemia: Status: Acute Code(s): E87.6 - Hypokalemia (4) Elevated liver enzymes: Status: Acute Code(s): R74.8 - Abnormal levels of other serum enzymes (5) Elevated ETOH level: Status: Acute Code(s): R78.0 - Finding of alcohol in blood Qualifiers: Blood alcohol level: 200-239 mg/100 ml Qualified Code(s): Y90.7 - Blood alcohol level of 200-239 mg/100 ml (6) Thrombocytopenia: Status: Acute Code(s): D69.6 - Thrombocytopenia, unspecified Meds Home Medications and Allergies Home Medications ?Medication ?Instructions ?Recorded ?Confirmed ?Type cefdinir 300 mg capsule 300 mg PO BID 4 days #8 caps 07/27/24 Rx levothyroxine 50 mcg capsule 50 mcg PO DAILY #30 caps 07/27/24 Rx multivitamin with folic acid 400 1 tab PO DAILY 30 days #30 tabs 07/27/24 Rx mcg tablet (Tab-A-Frank) omeprazole magnesium 20 mg 20 mg PO DAILY 07/27/24 07/27/24 History tablet,delayed release (Prilosec OTC) trazodone 50 mg tablet 50 mg PO HS PRN sleep #30 tabs 07/27/24 Rx New Prescriptions to Start Prescriptions: cefdinAdrián Serna levothyroxine Adrián Pérez multivitamin with folic acid [Tab-A-Frank] Adrián Préez trazodone Adrián Pérez Allergies Allergy/AdvReac Type Severity Reaction Status Date / Time No Known Allergies Allergy Verified 07/26/24 16:27 Discharge Plan Disposition Patient Disposition: Home, Self-Care Condition: Fair Follow up Plan Follow up with: Fatmata Velarde PA [Primary Care Provider] - Enter time for follow up (must call and register as new patient ) Prescriptions/Medication Reconciliation: New multivitamin with folic acid [Tab-A-Frank] 400 mcg Tablet 1 tab PO DAILY 30 Days Qty: 30 0RF cefdinir 300 mg capsule 300 mg PO BID 4 Days Qty: 8 0RF trazodone 50 mg tablet 50 mg PO HS PRN (Reason: sleep) Qty: 30 0RF levothyroxine 50 mcg capsule 50 mcg PO DAILY Qty: 30 0RF Continued omeprazole magnesium [Prilosec OTC] 20 mg Tablet,Delayed Release (Dr/Ec) 20 mg PO DAILY Other Ambulatory Orders: Home Medical Equipment (Routine) Location: None Selected Ordered By: Adrián Pérez Problem Reconciliation Problems Reviewed?: Yes Patient Discharge Instructions Patient Instructions: DI for Fatigue Print Language: Danish Providers Primary Care Provider: Fatmata Velarde Admit Provider: Adrián Pérez Attending Provider: Adrián Pérez
--- NOTE | 2024-07-31 10:58 | SW/DCPLANNER ---
Phoned patient x2. Each call patients phone will ring 1 time and then gives a busy signal. Bradley Clarke
== END 2024-07-27 15:27 | disposition home or self-care (01) ==
LOC: ER 17:04 → 2ND 20:23
PROVIDERS: Nurse Practitioner; Nurse Practitioner Family; Admitting Provider Student in an Organized Health Care Education/Training Program; Emergency Provider Emergency Medicine; PCP Physician Assistant; Visit Provider Student in an Organized Health Care Education/Training Program
DX: F10.229 Alcohol dependence with intoxication, unspecified (principal); R62.7 Adult failure to thrive; E87.6 Hypokalemia; R74.8 Abnormal levels of other serum enzymes; Y90.7 Blood alcohol level of 200-239 mg/100 ml; D69.6 Thrombocytopenia, unspecified; N39.0 Urinary tract infection, site not specified; E78.5 Hyperlipidemia, unspecified; I10 Essential (primary) hypertension; F17.210 Nicotine dependence, cigarettes, uncomplicated; Z71.41 Alcohol abuse counseling and surveillance of alcoholic; Z79.899 Other long term (current) drug therapy; Z68.20 Body mass index [BMI] 20.0-20.9, adult; Z91.148 Patient's other noncompliance with medication regimen for other reason
CPT/HCPCS: 70450; 71045; 72125; 76705; 80048; 80053; 80307; 80320; 81001; 82550; 82607; 82728; 82746; 83540; 83550; 83690; 83735; 84100; 84134; 84439; 84443; 84484; 85025; 87086; 87633; 93005; 97163; 97166; 97530; 99291; G0378; G0480; J0696; J1650; J3411; J7030; J7120

== ENCOUNTER 2024-09-11 23:27 | Inpatient (IN) | payer MEDICARE, SELFPAY ==
[2024-09-11 23:29] VITALS: BP 129/82; PULSE 95; RESP 18; TEMP 36.8; O2SAT 100; BMI 20.5
[2024-09-11 23:46] LABS: Basophils % 0.7 % (0.1-2.0); Eosinophils # 0.1 K/mm3 (0.0-0.4); Hematocrit 34.6 % (37.0-47.0); Lymphocytes # 1.6 K/mm3 (0.7-4.5); Lymphocytes % 25.8 % (10-50); Mean Corpuscular HGB Conc 34.7 g/dL (31.8-35.4); Mean Corpuscular Hemoglobin 34.1 pg (27.0-31.2); Mean Corpuscular Volume 98.3 fl (81-99); Monocytes # 0.4 K/mm3 (0.1-1.0); Monocytes % 5.9 % (1.7-9.3); Neutrophils % 65.9 % (37.0-80.0); Platelet Count 155 K/mm3 (142-424); Red Blood Count 3.52 M/mm3 (4.20-5.40); Red Cell Distribution Width 14.8 % (11.5-17.5); White Blood Count 6.1 K/mm3 (4.8-10.8)
--- NOTE | 2024-09-11 23:48 | ECG_ITS ---
APPROVED REPORT Exam: Resting ECG HR:89 bpm ECG Measurements Heart Rate 89 AXES TX 149 P 56 QRSd 97 QRS 41 QT 371 T 91 QTc 417 Conclusion SINUS RHYTHM LOW QRS VOLTAGE IN PRECORDIAL LEADS [QRS DEFLECTION < 1.0 mV IN CHEST LEADS] POSSIBLE INFERIOR MYOCARDIAL INFARCTION , OF INDETERMINATE AGE [30 ms Q WAVE IN II/aVF] ABNORMAL ECG UNCONFIRMED REPORT Electronically signed by : SORIN ALBARRAN, 09/13/2024 05:15:06
--- NOTE | 2024-09-11 23:53 | CT_ITS ---
PROCEDURE INFORMATION: Exam: CT Abdomen And Pelvis With Contrast Exam date and time: 09/12/2024 12:36 AM Age: 69 years old Clinical indication: Abdominal pain; Additional info: Chronic ruq abd pain, generalized weakness TECHNIQUE: Imaging protocol: Computed tomography of the abdomen and pelvis with contrast. Radiation optimization: All CT scans at this facility use at least one of these dose optimization techniques: automated exposure control; mA and/or kV adjustment per patient size (includes targeted exams where dose is matched to clinical indication); or iterative reconstruction. Contrast material: ISOVUE; Contrast volume: 75 ml; Contrast route: IV; COMPARISON: US ABDOMEN LIMITED 07/27/2024 1:00 PM FINDINGS: Liver: Fatty infiltration. 20 cm. No mass. Gallbladder and biliary ducts: Gallstones without gallbladder wall thickening. Pancreas: Mild peripancreatic fat stranding without fluid collection, mass or ductal dilatation identified. Spleen: Normal. No splenomegaly. Adrenal glands: 1.8 cm left adrenal nodule. Unremarkable right adrenal gland. Kidneys and ureters: Normal. No hydronephrosis. Stomach and bowel: Unremarkable. No obstruction. No mucosal thickening. Appendix: No evidence of appendicitis. Intraperitoneal space: Unremarkable. No free air. No significant fluid collection. Vasculature: Atherosclerotic calcification of aortoiliac arteries without dilatation. Lymph nodes: Unremarkable. No enlarged lymph nodes. Urinary bladder: Unremarkable as visualized. Reproductive: Large partially calcified fibromatous uterus. Ovaries not visualized. Bones/joints: Unremarkable. No acute fracture. Soft tissues: Unremarkable. IMPRESSION: 1. Mild peripancreatic fat stranding. Correlate mild pancreatitis symptoms. 2. Cholelithiasis 3. Hepatomegaly fatty infiltration. 4. Left adrenal nodule.
--- NOTE | 2024-09-11 23:54 | XR_ITS ---
PROCEDURE INFORMATION: Exam: XR Chest Exam date and time: 09/12/2024 12:28 AM Age: 69 years old Clinical indication: Other: Weakness; Additional info: Generalized weakness TECHNIQUE: Imaging protocol: Radiologic exam of the chest. Views: 1 view. COMPARISON: CR XR CHEST PORTABLE 07/26/2024 4:31 PM FINDINGS: Lungs: Unremarkable. No consolidation. Pleural spaces: Unremarkable. No pleural effusion. No pneumothorax. Heart/Mediastinum: Unremarkable. No cardiomegaly. Bones/joints: Unremarkable. IMPRESSION: No acute findings.
[2024-09-11 23:55] LABS: Lactate Venous 1.7 mmol/L (0.4-2.0); VBG Base Excess -10.2 mmol/L (-2.4-2.3); VBG HCO3 15.9 mmol/L (23-30); VBG Oxygen Saturation 70.4 % (50-70); VBG PCO2 31.5 mmol/L (35-51); VBG PH 7.32 mmol/L (7.31-7.41); VBG Total CO2 16.9 mmol/L (23-27)
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
[2024-09-11 23:57] LABS: Alanine Aminotransferase 21 U/L (12-78); Albumin Level 4.9 g/dl (3.5-5.0); Albumin/Globulin Ratio 1.2 (1.1-1.8); Alkaline Phosphatase 293 U/L (38-126); Anion Gap 28.7 mEq/L (5-15); Aspartate Amino Transferase 85 U/L (14-36); Blood Urea Nitrogen 15 mg/dl (7-17); Calcium 11.5 mg/dl (8.4-10.2); Carbon Dioxide 13 mmol/L (22.0-30.0); Chloride 95 mmol/L (98-107); Creatinine Clearance Estimated 50 mL/min (50-200); Estimated Glomerular Filt Rate 100 ml/min (>60); GFR (African American) 121 ML/MIN (>60); Globulin 4.2 g/dL (1.3-3.2); Glucose 162 mg/dl (74-100); Potassium 3.7 mmoL/L (3.5-5.1); Sodium 133 mmol/L (136-145); Total Protein,Serum 9.1 g/dl (6.3-8.2)
[2024-09-12] MEDS: MVI, ADULT NO.1 WITH VIT K 10 ML, THIAMINE HCL 100 MG, MAGNESIUM SULFATE 2 GM in LACTAT... 150 ML IV (00:01)
[2024-09-12] MEDS: FOLIC ACID 1MG TABLET 1 MG PO (00:02)
[2024-09-12 00:07] LABS: INR 1.12 (0.9-1.1); Prothrombin Time 12.4 seconds (10.1-12.5)
[2024-09-12 00:30] LABS: Lipase 529 U/L (23-300)
[2024-09-12 00:41] LABS: NT Pro Brain Natriuretic Pep. 96.7 pg/mL (0-125)
[2024-09-12 00:42] LABS: Creatine Kinase < 20 U/L (30-135); Phosphorous 1.3 mg/dl (2.5-4.5)
[2024-09-12 00:45] LABS: Magnesium 0.8 mg/dl (1.6-2.3)
--- NOTE | 2024-09-12 00:45 | PC.NURSE ---
Notified Dr. Troy of magnesium of 0.8
[2024-09-12 00:46] LABS: Troponin I < 0.01 ng/ml (0.00-0.034)
[2024-09-12] MEDS: SODIUM CHLORIDE 0.9% 10ML SYR (RAD ONLY) 10 ML IV (00:47)
[2024-09-12] MEDS: IOPAMIDOL-370 (76%);100ML BOTTLE 75 ML IV (00:47)
[2024-09-12 00:48] LABS: T4 (Thyroxine) 8.6 ug/dl (5.53-11.0)
[2024-09-12 01:01] LABS: Ethyl Alcohol < 10 mg/dl (0-10)
[2024-09-12 01:02] LABS: Thyroid Stimulating Hormone 2.96 uIU/mL (0.465-4.68)
[2024-09-12 01:20] LABS: Acetone, Serum (Rapid) Small (None Detect)
--- NOTE | 2024-09-12 02:01 | PC.NURSE ---
report called to Rainer HANSEN
--- NOTE | 2024-09-12 02:12 | PC.NURSE ---
Patient arrived to floor via stretcher from ED at 02:11.
[2024-09-12 02:19] VITALS: BP 140/69; PULSE 78; RESP 16; TEMP 36.7; O2SAT 99
--- NOTE | 2024-09-12 02:27 | EXP.HP ---
History of Present Illness *Admission Date: 09/12/24 *Reason for visit:: Generalized weakness *History of present illness: This is a 69-year-old female with a past medical history of alcohol abuse, hypertension, hyperlipidemia who presents emergency department today with complaints of not feeling well, poor p.o. intake and generalized weakness for the last 2 weeks. She states that she has not been feeling well for several weeks with increased right upper quadrant pain with eating. States that pain is worse when eating but also has intermittent pain without eating. States that she has not had substantial intake in the last 2 weeks. Feels generally weak and unable to get out of bed. Denies any fever. Denies any vomiting or diarrhea. Emergency department workup notable for potassium of 3.7, calcium 11.5, phosphorus of 1.3, mag of 0.8, alk phos of 293, T bilirubin of 2. Lipase of 598. CT imaging of the abdomen notable for mild peripancreatic fat stranding, correlate with mild pancreatitis, cholelithiasis without gallbladder wall thickening. Hepatomegaly. Given her electrolyte derangements and choledocholithiasis it was felt she would benefit from hospitalization. She is admitted to hospital service at this time. [facility] Disclaimer: The information contained in this section may have been updated after the patient was seen, as this information can be updated by other users. Surgical History (Updated 09/12/24 @ 02:36 by Aurora Spencer RN) History of tubal ligation Social History (Updated 09/12/24 @ 02:35 by Aurora Spencer RN) Smoking Status: Current every day smoker alcohol intake: current current occupational status: unemployed Travel in the last 8 weeks: None Contact w/someone who lives/traveled outside [place] past 30 days?: No Exposure to someone with infectious disease in past 14 days?: No Do you have a fever (greater than 100.4 F or 38 C)?: No Have you tested positive for COVID-19: No Exposed to someone with COVID-19 in past 14 days?: No Do you have a sore throat?: No Do you have a cough?: No Do you have any weakness?: Yes Are you experiencing any nausea/vomitting?: No Do you have any diarrhea?: No Are you experiencing any unusual bleeding?: No Do you have any muscle aches/pain?: No Do you have any abdominal pain?: No Are you experiencing loss of taste or smell?: No Other Medical History Have you received the Flu Vaccine for this season: No Have you received the Pneumonia Vaccine: No Review of Systems Review of Systems Review of systems:: other Review of systems (narrative): Negative except for HPI Meds Home Medications and Allergies Home Medications ?Medication ?Instructions ?Recorded ?Confirmed ?Type levothyroxine 50 mcg capsule 50 mcg PO DAILY #30 caps 07/27/24 09/12/24 Rx omeprazole magnesium 20 mg 20 mg PO DAILY 07/27/24 09/12/24 History tablet,delayed release (Prilosec OTC) New Prescriptions to Start Prescriptions: Allergies Allergy/AdvReac Type Severity Reaction Status Date / Time No Known Allergies Allergy Verified 07/26/24 16:27 Exam Data for Last 24 hours Vital signs and Labs for Last 24 Hours: Temp Pulse Resp BP Pulse Ox O2 Del Method 98.1 F 78 16 140/69 100 Room Air 09/12/24 02:19 09/12/24 02:19 09/12/24 02:19 09/12/24 02:19 09/11/24 23:29 09/12/24 02:19 Laboratory Results - last 24 hr 09/11/24 23:02: WBC 6.1, RBC 3.52 L, Hgb 12.0 L, Hct 34.6 L, MCV 98.3, MCH 34.1 H, MCHC 34.7, RDW 14.8, Plt Count 155, MPV 10.0, Neut % (Auto) 65.9, Lymph % (Auto) 25.8, [place] % (Auto) 5.9, Eos % (Auto) 1.0, Baso % (Auto) 0.7, Neut # (Auto) 4.0, Lymph # (Auto) 1.6, [place] # (Auto) 0.4, Eos # (Auto) 0.1, Baso # (Auto) 0.0, PT 12.4, INR 1.12 H, Sodium 133 L, Potassium 3.7, Chloride 95 L, Carbon Dioxide 13 L, Anion Gap 28.7 H, BUN 15, Creatinine 0.60, Estimated Creat Clear 50, Estimated GFR 100, Est GFR ( Amer) 121, Glucose 162 H, Calcium 11.5 H, Phosphorus 1.3 L, Magnesium 0.8 L, Total Bilirubin 2.0 H, AST 85 H, ALT 21, Alkaline Phosphatase 293 H, Total Creatine Kinase < 20 L, Troponin I < 0.01, NT-Pro-B Natriuret Pep 96.7, Total Protein 9.1 H D, Albumin 4.9, Globulin 4.2 H, Albumin/Globulin Ratio 1.2, Lipase 529 H, TSH 2.96, Thyroxine (T4) 8.6, Plasma/Serum Alcohol < 10, Acetone Level Small 09/11/24 23:42: VBG pH 7.32, VBG pCO2 31.5 L, VBG pO2 39.0, VBG HCO3 15.9 L, VBG Total CO2 16.9 L, VBG O2 Saturation 70.4 H, VBG Base Excess -10.2 L, VBG Lactic Acid 1.7 I & O for Last 24 hours: Intake & Output 09/09/24 09/10/24 09/11/24 09/12/24 23:59 23:59 23:59 23:59 Weight 57.561 kg Constitutional Constitutional: no acute distress *Routine HEENT Exam Head: Present normocephalic Eye: Present EOMI and PERRL ENT: Present mucous membranes moist *Routine Neck Exam Neck: Present supple; Absent lymphadenopathy *Routine Respiratory Exam Respiratory: Present CTA bilaterally *Routine Cardiovascular Exam Cardiovascular: Present RRR *Routine Abdominal Exam Abdominal: Present soft and normoactive bowel sounds; Absent tenderness *Routine Rectal Exam Rectal:: deferred *Routine Genitalia Exam Genitalia:: deferred *Routine Extremities Exam Extremities: Absent cyanosis, clubbing or edema *Routine Skin Exam Skin: Present warm; Absent rash *Routine Neurological Exam Neurological: Present alert and oriented X3 Assessment and Plan *Assessment and plan (1) Pancreatitis: Status: Acute Category: Medical Code(s): K85.90 - Acute pancreatitis without necrosis or infection, unspecified (2) Choledocholithiasis: Status: Acute Category: Medical Code(s): K80.50 - Calculus of bile duct without cholangitis or cholecystitis without obstruction (3) Hypophosphatemia: Status: Acute Category: Medical Code(s): E83.39 - Other disorders of phosphorus metabolism (4) Hypomagnesemia: Status: Acute Category: Medical Code(s): E83.42 - Hypomagnesemia (5) Hypercalcemia: Status: Acute Category: Medical Code(s): E83.52 - Hypercalcemia Plan Admit to medicine #Cholelithiasis #Pancreatitis Elevated lipase. Likely gallstone pancreatitis given CT findings. Patient does endorse significant pain with eating. States she has not been able to eat in approximately 2 weeks. Will consult GI in AM. N.p.o. Continue LR infusion. Multimodal pain medication antiemetics as needed Hypophosphatemia Hypomagnesemia Hypokalemia Replace per protocol. Will give 1 dose of oral K-Phos at this time. Repeat levels in a.m. #Calcified uterus Noted on CT, arge partially calcified fibromatous uterus. Will need outpatient follow up #Hypercalcemia Continue maintenance IV fluids. Questionable malignant uterus given CT findings
[2024-09-12 02:45] VITALS: BP 140/69; PULSE 81; RESP 16; TEMP 36.8; O2SAT 100; BMI 19.1
[2024-09-12] MEDS: LACTATED RINGERS 1000ML 1,000 ML 150 ML IV ×3 (02:46→23:21)
[2024-09-12] MEDS: K-PHOS NEUTRAL 250MG TABLET 250 MG PO (02:46)
[2024-09-12] MEDS: MAGNESIUM SULFATE IN WATER 2 GM/50 ML PIGGYBACK IV ×3 (02:46→19:01)
[2024-09-12] MEDS: NICOTINE 21MG/24HR PATCH 21 MG TD (02:47)
[2024-09-12 02:57] LABS: HIV Combo NEGATIVE (Negative)
[2024-09-12 03:05] LABS: Hepatitis C Ab Qual. W/ RFX NEGATIVE (Negative)
[2024-09-12 03:24] LABS: Troponin I < 0.01 ng/ml (0.00-0.034)
[2024-09-12 04:00] VITALS: BP 122/63; PULSE 75; RESP 16; TEMP 36.6; O2SAT 100; BMI 19.1
[2024-09-12 04:44] LABS: Microscopic, Urine URINE MICROSCOPIC (MICROSCOPIC)
[2024-09-12 04:46] LABS: Appearance,Urine CLEAR (Clear); Blood, Urine Negative (Negative); Color,Urine YELLOW (Yellow); Glucose,Urine (UA) Negative (Negative); Ketones,Urine 3+ (Negative); Leukocyte Esterase,Urine Negative (Negative); Nitrate,Urine Negative (Negative); Protein,Urine 1+ (Negative); Urobilinogen,Urine 0.2 EU/dl (0.2)
[2024-09-12 04:58] LABS: Squamous Epithelial Cell,Urine Occasional #/hpf (0-5)
[2024-09-12 04:59] LABS: Barbiturates Screen,Urine Negative ng/ml (<200); Benzodiazepines Screen,Urine Negative ng/ml (<200)
[2024-09-12 05:00] LABS: Amphetamine/Metha Screen,Urine Negative ng/ml (<1000); Bilirubin,Urine 1+ (Negative)
[2024-09-12 05:01] LABS: Cannabinoid Screen,Urine Negative ng/ml (<50); Methadone Screen,Urine Negative ng/ml (<300)
[2024-09-12 05:02] LABS: Cocaine Screen,Urine Negative ng/ml (<300)
[2024-09-12 05:03] LABS: Opiate Screen,Urine Negative ng/ml (<300); Phencyclidine Screen,Urine Negative ng/ml (<25)
[2024-09-12 05:16] LABS: Acetaminophen < 10 ug/ml (10-30); Salicylate < 1.0 mg/dL (2.0-20.0)
[2024-09-12 06:27] LABS: Basophils % 0.6 % (0.1-2.0); Eosinophils # 0.1 K/mm3 (0.0-0.4); Eosinophils % 1.7 % (0.1-12.0); Hematocrit 26.5 % (37.0-47.0); Lymphocytes # 1.1 K/mm3 (0.7-4.5); Lymphocytes % 30.6 % (10-50); Mean Corpuscular HGB Conc 35.1 g/dL (31.8-35.4); Mean Corpuscular Hemoglobin 34.1 pg (27.0-31.2); Mean Corpuscular Volume 97.1 fl (81-99); Mean Platelet Volume 9.5 fl (7.4-10.4); Monocytes % 8.7 % (1.7-9.3); Neutrophils % 58.1 % (37.0-80.0); Platelet Count 84 K/mm3 (142-424); Red Blood Count 2.73 M/mm3 (4.20-5.40); White Blood Count 3.6 K/mm3 (4.8-10.8)
[2024-09-12 06:29] LABS: Monocytes # 0.3 K/mm3 (0.1-1.0); Neutrophils # 2.1 K/mm3 (1.8-7.8); Red Cell Distribution Width 14.6 % (11.5-17.5)
[2024-09-12 06:31] LABS: Chloride 96 mmol/L (98-107); Sodium 132 mmol/L (136-145)
[2024-09-12 06:34] LABS: Blood Urea Nitrogen 13 mg/dl (7-17); Calcium 9.6 mg/dl (8.4-10.2); Carbon Dioxide 19 mmol/L (22.0-30.0); Creatinine Clearance Estimated 47 mL/min (50-200); Estimated Glomerular Filt Rate 123 ml/min (>60); GFR (African American) 149 ML/MIN (>60); Glucose 105 mg/dl (74-100)
[2024-09-12 06:36] LABS: Potassium 2.6 mmoL/L (3.5-5.1)
[2024-09-12 06:39] LABS: Anion Gap 19.6 mEq/L (5-15)
[2024-09-12 06:55] LABS: Magnesium 2.2 mg/dl (1.6-2.3)
[2024-09-12] MEDS: POTASSIUM CHLORIDE 20MEQ TAB 40 MEQ PO ×4 (06:55→18:06)
[2024-09-12 06:56] LABS: Phosphorous 1.4 mg/dl (2.5-4.5)
[2024-09-12 07:32] VITALS: BP 122/63; PULSE 76; RESP 16; TEMP 36.6; O2SAT 100
[2024-09-12 07:33] LABS: Hemoglobin 9.4 g/dL (12.2-16.2)
--- NOTE | 2024-09-12 07:50 | HMH.PHAINT1 ---
Pharmacy Intervention Comments: HOME MEDICATION LIST VERIFIED USING LIST FROM OUTPATIENT PHARMACY AND PT INTERVIEW
--- NOTE | 2024-09-12 07:59 | EXP.GE.CONS ---
History of Present Illness *Admission Date: 09/12/24 *Reason for visit:: Right upper quadrant abdominal pain and presumed gallstone pancreatitis *History of present illness: Mrs. Jaime is a 69-year-old female who was admitted because of right upper quadrant abdominal pain and not eating. The patient does state that she began to have right upper quadrant abdominal pain a couple of weeks ago. This was nonradiating pain and was initially constant but has been more intermittent. This primarily occurs postprandially. She would have associated nausea and vomiting. She became more afraid to eat and eventually came to the emergency department where labs were checked. Her alkaline phosphatase was 293 with total bilirubin of 2.0. Her lipase was 598. Her CAT scan of the abdomen was notable for mild peripancreatic fat stranding consistent with mild pancreatitis. She does have cholelithiasis without evidence of cholecystitis. There was no bile duct dilation. The patient reports no fever. She reports no dark in urine or acholic stools. She has not had no prior episodes of pancreatitis and has no family history of gallstones. She does smoke. There is history of alcohol abuse. Initial labs showed a white blood cell count of 3.6, hemoglobin 9.4 and hematocrit 26.5. She also had some hypokalemia with potassium 2.6 and sodium 132. Her serum albumin was 4.9. [facility] Disclaimer: The information contained in this section may have been updated after the patient was seen, as this information can be updated by other users. Surgical History (Updated 09/12/24 @ 02:36 by Aurora Spencer RN) History of tubal ligation Social History (Updated 09/12/24 @ 02:35 by Aurora Spencer RN) Smoking Status: Current every day smoker alcohol intake: current current occupational status: unemployed Travel in the last 8 weeks: None Contact w/someone who lives/traveled outside [place] past 30 days?: No Exposure to someone with infectious disease in past 14 days?: No Do you have a fever (greater than 100.4 F or 38 C)?: No Have you tested positive for COVID-19: No Exposed to someone with COVID-19 in past 14 days?: No Do you have a sore throat?: No Do you have a cough?: No Do you have any weakness?: Yes Are you experiencing any nausea/vomitting?: No Do you have any diarrhea?: No Are you experiencing any unusual bleeding?: No Do you have any muscle aches/pain?: No Do you have any abdominal pain?: No Are you experiencing loss of taste or smell?: No Meds Home Medications and Allergies Home Medications ?Medication ?Instructions ?Recorded ?Confirmed ?Type levothyroxine 50 mcg capsule 50 mcg PO DAILY #30 caps 07/27/24 09/12/24 Rx omeprazole magnesium 20 mg 20 mg PO DAILY 07/27/24 09/12/24 History tablet,delayed release (Prilosec OTC) New Prescriptions to Start Prescriptions: Allergies Allergy/AdvReac Type Severity Reaction Status Date / Time No Known Allergies Allergy Verified 07/26/24 16:27 Exam (Inpt) Vital signs and Labs for Last 24 Hours: Temp Pulse Resp BP Pulse Ox O2 Del Method 97.9 F 76 16 122/63 100 Room Air 09/12/24 07:32 09/12/24 07:32 09/12/24 07:32 09/12/24 07:32 09/12/24 07:32 09/12/24 07:32 Laboratory Results - last 24 hr 09/11/24 23:02: WBC 6.1, RBC 3.52 L, Hgb 12.0 L, Hct 34.6 L, MCV 98.3, MCH 34.1 H, MCHC 34.7, RDW 14.8, Plt Count 155, MPV 10.0, Neut % (Auto) 65.9, Lymph % (Auto) 25.8, [place] % (Auto) 5.9, Eos % (Auto) 1.0, Baso % (Auto) 0.7, Neut # (Auto) 4.0, Lymph # (Auto) 1.6, [place] # (Auto) 0.4, Eos # (Auto) 0.1, Baso # (Auto) 0.0, PT 12.4, INR 1.12 H, Sodium 133 L, Potassium 3.7, Chloride 95 L, Carbon Dioxide 13 L, Anion Gap 28.7 H, BUN 15, Creatinine 0.60, Estimated Creat Clear 50, Estimated GFR 100, Est GFR ( Amer) 121, Glucose 162 H, Calcium 11.5 H, Phosphorus 1.3 L, Magnesium 0.8 L, Total Bilirubin 2.0 H, AST 85 H, ALT 21, Alkaline Phosphatase 293 H, Total Creatine Kinase < 20 L, Troponin I < 0.01, NT-Pro-B Natriuret Pep 96.7, Total Protein 9.1 H D, Albumin 4.9, Globulin 4.2 H, Albumin/Globulin Ratio 1.2, Lipase 529 H, TSH 2.96, Thyroxine (T4) 8.6, Salicylates < 1.0 L, Acetaminophen < 10 L, Plasma/Serum Alcohol < 10, Acetone Level Small, HCV Ab CHRISTIANO w/Rflx PCR Qn Negative, HIV Ag/Ab Combo Qual Negative 09/11/24 23:42: VBG pH 7.32, VBG pCO2 31.5 L, VBG pO2 39.0, VBG HCO3 15.9 L, VBG Total CO2 16.9 L, VBG O2 Saturation 70.4 H, VBG Base Excess -10.2 L, VBG Lactic Acid 1.7 09/12/24 02:54: Troponin I < 0.01 09/12/24 04:35: Urine Color Yellow, Urine Appearance Clear, Urine pH 6.0, Ur Specific [place] 1.020, Urine Protein 1+ A, Urine Glucose (UA) Negative, Urine Ketones 3+, Urine Blood Negative, Urine Nitrate Negative, Urine Bilirubin 1+ A, Urine Urobilinogen 0.2, Ur Leukocyte Esterase Negative, Urine RBC None, Urine WBC None, Ur Squamous Epith Cells Occasional, Urine Opiates Screen Negative, Urine Methadone Screen Negative, Ur Barbituates Screen Negative, Ur Phencyclidine Scrn Negative, Ur Amphetamines Screen Negative, U Benzodiazepines Scrn Negative, Urine Cocaine Screen Negative, U Marijuana (THC) Screen Negative 09/12/24 05:46: WBC 3.6 L D, RBC 2.73 L, Hgb 9.4 L D, Hct 26.5 L, MCV 97.1, MCH 34.1 H, MCHC 35.1, RDW 14.6, Plt Count 84 L D, MPV 9.5, Neut % (Auto) 58.1, Lymph % (Auto) 30.6, [place] % (Auto) 8.7, Eos % (Auto) 1.7, Baso % (Auto) 0.6, Neut # (Auto) 2.1, Lymph # (Auto) 1.1, [place] # (Auto) 0.3, Eos # (Auto) 0.1, Baso # (Auto) 0.0, Sodium 132 L, Potassium 2.6 L* D, Chloride 96 L, Carbon Dioxide 19 L, Anion Gap 19.6 H, BUN 13, Creatinine 0.50 L, Estimated Creat Clear 47, Estimated GFR 123, Est GFR ( Amer) 149 D, Glucose 105 H D, Calcium 9.6, Phosphorus 1.4 L, Magnesium 2.2 D I & O for Labs for Last 24 Hours: Intake & Output 09/09/24 09/10/24 09/11/24 09/12/24 23:59 23:59 23:59 23:59 Output Total 200 / 200 Balance -200 / -200 Weight 126 lb 14.4 oz 119 lb 4.8 oz Comments:: Normoactive bowel sounds, some right upper quadrant abdominal tenderness but no Alatorre sign, no rebound or guarding, no masses, no hernias Results Labs 09/12/24 05:46 09/12/24 05:46 Labs: Laboratory Results - last 24 hr 09/11/24 23:02: WBC 6.1, RBC 3.52 L, Hgb 12.0 L, Hct 34.6 L, MCV 98.3, MCH 34.1 H, MCHC 34.7, RDW 14.8, Plt Count 155, MPV 10.0, Neut % (Auto) 65.9, Lymph % (Auto) 25.8, [place] % (Auto) 5.9, Eos % (Auto) 1.0, Baso % (Auto) 0.7, Neut # (Auto) 4.0, Lymph # (Auto) 1.6, [place] # (Auto) 0.4, Eos # (Auto) 0.1, Baso # (Auto) 0.0, PT 12.4, INR 1.12 H, Sodium 133 L, Potassium 3.7, Chloride 95 L, Carbon Dioxide 13 L, Anion Gap 28.7 H, BUN 15, Creatinine 0.60, Estimated Creat Clear 50, Estimated GFR 100, Est GFR ( Amer) 121, Glucose 162 H, Calcium 11.5 H, Phosphorus 1.3 L, Magnesium 0.8 L, Total Bilirubin 2.0 H, AST 85 H, ALT 21, Alkaline Phosphatase 293 H, Total Creatine Kinase < 20 L, Troponin I < 0.01, NT-Pro-B Natriuret Pep 96.7, Total Protein 9.1 H D, Albumin 4.9, Globulin 4.2 H, Albumin/Globulin Ratio 1.2, Lipase 529 H, TSH 2.96, Thyroxine (T4) 8.6, Salicylates < 1.0 L, Acetaminophen < 10 L, Plasma/Serum Alcohol < 10, Acetone Level Small, HCV Ab CHRISTIANO w/Rflx PCR Qn Negative, HIV Ag/Ab Combo Qual Negative 09/11/24 23:42: VBG pH 7.32, VBG pCO2 31.5 L, VBG pO2 39.0, VBG HCO3 15.9 L, VBG Total CO2 16.9 L, VBG O2 Saturation 70.4 H, VBG Base Excess -10.2 L, VBG Lactic Acid 1.7 09/12/24 02:54: Troponin I < 0.01 09/12/24 04:35: Urine Color Yellow, Urine Appearance Clear, Urine pH 6.0, Ur Specific [place] 1.020, Urine Protein 1+ A, Urine Glucose (UA) Negative, Urine Ketones 3+, Urine Blood Negative, Urine Nitrate Negative, Urine Bilirubin 1+ A, Urine Urobilinogen 0.2, Ur Leukocyte Esterase Negative, Urine RBC None, Urine WBC None, Ur Squamous Epith Cells Occasional, Urine Opiates Screen Negative, Urine Methadone Screen Negative, Ur Barbituates Screen Negative, Ur Phencyclidine Scrn Negative, Ur Amphetamines Screen Negative, U Benzodiazepines Scrn Negative, Urine Cocaine Screen Negative, U Marijuana (THC) Screen Negative 09/12/24 05:46: WBC 3.6 L D, RBC 2.73 L, Hgb 9.4 L D, Hct 26.5 L, MCV 97.1, MCH 34.1 H, MCHC 35.1, RDW 14.6, Plt Count 84 L D, MPV 9.5, Neut % (Auto) 58.1, Lymph % (Auto) 30.6, [place] % (Auto) 8.7, Eos % (Auto) 1.7, Baso % (Auto) 0.6, Neut # (Auto) 2.1, Lymph # (Auto) 1.1, [place] # (Auto) 0.3, Eos # (Auto) 0.1, Baso # (Auto) 0.0, Sodium 132 L, Potassium 2.6 L* D, Chloride 96 L, Carbon Dioxide 19 L, Anion Gap 19.6 H, BUN 13, Creatinine 0.50 L, Estimated Creat Clear 47, Estimated GFR 123, Est GFR ( Amer) 149 D, Glucose 105 H D, Calcium 9.6, Phosphorus 1.4 L, Magnesium 2.2 D Assessment and Plan *Assessment and plan (1) Right upper quadrant abdominal pain: Status: Acute Category: Medical Code(s): R10.11 - Right upper quadrant pain (2) Cholelithiasis without cholecystitis: Status: Acute Category: Medical Code(s): K80.20 - Calculus of gallbladder without cholecystitis without obstruction (3) Gallstone pancreatitis: Status: Acute Category: Medical Code(s): K85.10 - Biliary acute pancreatitis without necrosis or infection (4) Choledocholithiasis: Status: Acute Category: Medical Code(s): K80.50 - Calculus of bile duct without cholangitis or cholecystitis without obstruction (5) Elevated bilirubin: Status: Acute Category: Medical Code(s): R17 - Unspecified jaundice (6) Anemia: Status: Acute Category: Medical Code(s): D64.9 - Anemia, unspecified Plan 1. Right upper quadrant abdominal pain with spike in total bilirubin and alkaline phosphatase and pancreatitis. I do feel that this is choledocholithiasis with gallstone pancreatitis. Her CT scan and ultrasound did not show bile duct dilation. However, with total bilirubin 2.0 and rising alkaline phosphatase, I do feel that ERCP is indicated. I have discussed this with the patient this morning. We will plan ERCP today. I would recommend elective cholecystectomy thereafter. General surgery should be consulted for elective cholecystectomy. 2. Anemia. I am going to check iron levels today as well as Hemoccult testing.
[2024-09-12] MEDS: POTASSIUM PHOS IN 0.9 % NACL 15 MMOL/250 ML PIGGYBACK 62.5 MMOL IV ×2 (08:25→12:40)
[2024-09-12 08:37] LABS: Iron 141 ug/dL (37-170)
[2024-09-12 08:47] LABS: Total Iron Binding Capacity 212 ug/dL (265-497)
[2024-09-12 09:14] LABS: Ferritin 455 ng/ml (11.1-264)
[2024-09-12] MEDS: LEVOTHYROXINE 50MCG (0.05MG) TAB 50 MCG PO (11:34)
--- NOTE | 2024-09-12 12:30 | PEERSUPPORT ---
Peer Support Note Patient Information Patient Information: DOS: 09/12/2024 ? Reason: ETOH /AUD Ps consult ? ETOH Last Ingested: Prior to admission Vodka ? ETOH HX: Vodka daily for the past thirty days. 2-3 inches of a fifth per day. 6-10 ounces ? Previous Treatment: None ? Support System: None: Only relationship with one daughter Mely of her three children, who does not know of her drinking problems. ? Current Stressors: -Relationship issues -Unmet basic needs: food says she had not ate in 5 days -Lack of connection to social supports -Weakness overall ? Motivation for Change: -Pt stated she used alcohol to sleep, keeping it by her bedside. She never leaves the house or has any interactions with anyone other than her . She has drank on and off throughout her life. In the recent months she has drank vodka daily to cope. Ps discusses her safety at home: Ps stated she does not feel she gets the care she needs at home but doesn?t feel unsafe and if possible she would go to a alf facility to get the care she needs. ? Potential Barriers: -Lack of connection to support -Pt does not drive ? Harm Reduction: -Connection to [facility] Peer Support -Education on Alcohol Use Disorder
[2024-09-12 12:55] LABS: Lipase 631 U/L (23-300)
[2024-09-12 16:00] VITALS: BP 114/69; PULSE 86; RESP 18; TEMP 36.8; O2SAT 100
--- NOTE | 2024-09-12 16:14 | HMH.PTEV ---
Physical Therapy Evaluation Rehab PT IP Evaluation Start: 09/12/24 10:27 Freq: ONCE Status: Active Protocol: Document 09/12/24 16:11 SHAKA (Rec: 09/12/24 16:14 PHOCAS [id number]) Subjective/History History History 69-year-old female with a past medical history of alcohol abuse, hypertension, hyperlipidemia who presents emergency department today with complaints of not feeling well, poor p.o. intake and generalized weakness for the last 2 weeks. She states that she has not been feeling well for several weeks with increased right upper quadrant pain with eating. States that pain is worse when eating but also has intermittent pain without eating. States that she has not had substantial intake in the last 2 weeks. Feels generally weak and unable to get out of bed. Denies any fever. Denies any vomiting or diarrhea. Pt reports she lives with her , 2-3 HERR[address] the home, and she is generally independent with all mobility using a RW at baseline. Subjective Subjective She reports no c/o this pm and readily agrees to OOB mobility. [facility] How much help from another person do you currently need... Turning from your back to your side None while in a flat bed without using bedrails? Moving from lying on back to sitting on None the side of a flat bed without using bedrails? Moving to and from a bed to a chair ( None including a wheelchair)? Standing up from a chair using your arms None ? (e.g., wheelchair, bedside chair) Walking in hospital room? None Climbing 3-5 steps with a railing? A little Mobility Score 23 Mobility Level [facility] Mobility Calculator Mobility 7 Walk 25 feet or more Rehab PT IP Eval Objective Appearance Patient Behavior Appropriate Patient Orientation Person,Place,Time Difficulty following instructions none Speech Pattern Clear Ambulation Patient Able to Ambulate Yes Ambulation Observation IP General Gait Pattern Observation Shuffling Step Ambulation Distance (feet) 25 Ambulation Assistive Device Rolling Walker Ambulation Ability Supervision/Stand by Balance Ability to Arise Able, uses arms to help Sitting Balance Steady, safe Standing Balance Steady, wide stance Dynamic Sitting Balance Ability Good Dynamic Standing Balance Ability Fair Transfers Bed Transfer Ability Supervision/Stand by Chair Transfer Ability Supervision/Stand by Sit to Stand Bed Transfer Ability Supervision/Stand by Sit to Stand Chair Transfer Ability Supervision/Stand by Rehab PT IP prob,goals,plan Problems Date of Evaluation: 09/12/24 Discharge Plan PT Discharge Plan Pt is currently appropriate to return home once medically stable for d/c. Recommend home health therapy services after return home. No current inpatient skilled therapy needs. Eval Complexity Eval Charge Codes 21119 - High Complexity PHYSICIAN CERTIFICATION: I certify the specified therapy services for Julia Jaime are required, authorized, and reviewed every 30 days.
--- NOTE | 2024-09-12 16:14 | PC.NURSE ---
charting for this patient completed by TYRONE PERALES (orientee) with this RN's direct supervision.
[2024-09-12 17:09] LABS: Blood Urea Nitrogen 10 mg/dl (7-17); Calcium 8.9 mg/dl (8.4-10.2); Carbon Dioxide 19 mmol/L (22.0-30.0); Chloride 101 mmol/L (98-107); Creatinine Clearance Estimated 47 mL/min (50-200); Estimated Glomerular Filt Rate 123 ml/min (>60); GFR (African American) 149 ML/MIN (>60); Glucose 99 mg/dl (74-100); Magnesium 1.7 mg/dl (1.6-2.3); Sodium 132 mmol/L (136-145)
[2024-09-12 17:13] LABS: Phosphorous 2.7 mg/dl (2.5-4.5)
[2024-09-12 17:16] LABS: Anion Gap 15.8 mEq/L (5-15); Potassium 3.8 mmoL/L (3.5-5.1)
--- NOTE | 2024-09-12 18:15 | PC.NURSE ---
VSS on RA. Electrolytes replaced per protocol. See MAR. IV fluids infusing per order. No complaints of abdominal pain. SCDS in place. NPO at midnight for ERCP scheduled for tomorrow. Consent not signed due to no order being in place. Case management and peer support consulted today. No needs voiced at this time. Call light within reach. Bed alarm in place.
[2024-09-12 19:48] VITALS: BP 108/63; PULSE 79; RESP 16; TEMP 36.6; O2SAT 99
[2024-09-12] MEDS: PANTOPRAZOLE 40MG TABLET 40 MG PO (20:06)
[2024-09-13] VITALS (20 sets, daily range): BP systolic 102–128; BP diastolic 46–97; PULSE 72–99; RESP 14–20; TEMP 36.4–36.9; O2SAT 96–100; BMI 20.7
[2024-09-13] MEDS: LEVOTHYROXINE 50MCG (0.05MG) TAB 50 MCG PO (06:32)
[2024-09-13 06:56] LABS: Basophils % 0.7 % (0.1-2.0); Eosinophils % 1.1 % (0.1-12.0); Hemoglobin 8.1 g/dL (12.2-16.2); Lymphocytes # 0.9 K/mm3 (0.7-4.5); Lymphocytes % 34.3 % (10-50); Mean Corpuscular HGB Conc 35.2 g/dL (31.8-35.4); Mean Corpuscular Hemoglobin 34.6 pg (27.0-31.2); Mean Corpuscular Volume 98.3 fl (81-99); Mean Platelet Volume 9.3 fl (7.4-10.4); Monocytes # 0.3 K/mm3 (0.1-1.0); Monocytes % 9.6 % (1.7-9.3); Neutrophils # 1.5 K/mm3 (1.8-7.8); Neutrophils % 53.9 % (37.0-80.0); Platelet Count 77 K/mm3 (142-424); Red Blood Count 2.34 M/mm3 (4.20-5.40); Red Cell Distribution Width 14.6 % (11.5-17.5); White Blood Count 2.7 K/mm3 (4.8-10.8)
[2024-09-13 07:16] LABS: Albumin Level 3.2 g/dl (3.5-5.0); Chloride 102 mmol/L (98-107)
[2024-09-13 07:17] LABS: Potassium 3.8 mmoL/L (3.5-5.1); Sodium 131 mmol/L (136-145)
[2024-09-13 07:19] LABS: Alanine Aminotransferase 16 U/L (12-78); Alkaline Phosphatase 260 U/L (38-126); Anion Gap 11.8 mEq/L (5-15); Aspartate Amino Transferase 61 U/L (14-36); Bilirubin,Total 1.2 mg/dl (0.2-1.3); Blood Urea Nitrogen 6 mg/dl (7-17); Carbon Dioxide 21 mmol/L (22.0-30.0); Creatinine Clearance Estimated 51 mL/min (50-200); Estimated Glomerular Filt Rate 159 ml/min (>60); GFR (African American) 193 ML/MIN (>60)
[2024-09-13 07:20] LABS: Albumin/Globulin Ratio 1.1 (1.1-1.8); Globulin 2.8 g/dL (1.3-3.2); Glucose 97 mg/dl (74-100); Magnesium 1.9 mg/dl (1.6-2.3)
[2024-09-13 08:21] LABS: Phosphorous 1.3 mg/dl (2.5-4.5)
--- NOTE | 2024-09-13 08:21 | SW/DCPLANNER ---
I spoke w/ this patient regarding plans once medically stable for discharge. PT evaluated patient and recommended home w/ home health services. Patient voiced that she lives at home w/ her . Patient stated that she feels safe to return home w/ her but he assist her at home when needed. Patient stated that she is able to cook for herself. Patient does use a rolling walker at home. I suggested home health services but patient would like additional time today to consider this option. I also discussed the option of outpatient PT services if not agreeable to home health. CM will continue to follow up w/ this patient. Discharge date is unknown at this time.
[2024-09-13] MEDS: POTASSIUM PHOS IN 0.9 % NACL 15 MMOL/250 ML PIGGYBACK 62.5 MMOL IV ×2 (08:42→12:52)
--- NOTE | 2024-09-13 11:53 | SW/DCPLANNER ---
Spoke with patient about home health services for therapy or if she would be interested in outpatient therapy. Patient stated that she is not interested in home health services. Patient stated that she would do outpatient therapy. Sheela Clarke
--- NOTE | 2024-09-13 13:26 | P.PN_ITS ---
Subjective *Date: 09/13/24 *Time: 13:26 Medical Exam Vital signs and Labs for Last 24 Hours: Vital Signs Temp Pulse Resp BP Pulse Ox O2 Del Method 09/13/24 13:00 Room Air 09/13/24 11:57 97.8 F 72 16 113/67 100 Room Air 09/13/24 11:00 Room Air 09/13/24 09:00 Room Air 09/13/24 08:00 Room Air 09/13/24 08:00 97.9 F 74 16 109/57 L 99 Room Air 09/13/24 06:34 Room Air 09/13/24 05:00 Room Air 09/13/24 03:59 97.9 F 84 17 119/66 97 Room Air 09/13/24 03:00 Room Air 09/13/24 01:00 Room Air 09/12/24 23:00 Room Air 09/12/24 21:00 Room Air 09/12/24 20:00 Room Air 09/12/24 19:48 97.9 F 79 16 108/63 L 99 Room Air 09/12/24 18:45 Room Air 09/12/24 18:44 Room Air 09/12/24 17:00 Room Air 09/12/24 16:00 98.2 F 86 18 114/69 100 Room Air 09/12/24 15:00 Room Air Intake and Output 09/12/24 09/13/24 09/13/24 23:59 07:59 15:59 Intake Total 300 / 1040 500 / 500 Output Total 150 / 350 200 / 200 Balance 150 / 690 300 / 300 Intake: Intake, Oral Amount 300 / 540 Intake, Total IV Amount 500 / 500 Lactated Ringers 1000ML 1,000 500 / 500 ml @ 150 mls/hr IV .[id number] [facility] Rx#:[id number] Output: Output, Urine Amount 150 / 350 200 / 200 Other: Number of Unmeasured Voids 0 0 Number of Bowel Movements 1 Weight 58.695 kg Patient Weight 09/13/24 23:59 Weight 58.695 kg Laboratory Results - last 24 hr 09/12/24 16:15: Sodium 132 L, Potassium 3.8 D, Chloride 101, Carbon Dioxide 19 L, Anion Gap 15.8 H, BUN 10, Creatinine 0.50 L, Estimated Creat Clear 47, Estimated GFR 123, Est GFR ( Amer) 149, Glucose 99, Calcium 8.9, Phosphorus 2.7 D, Magnesium 1.7 D 09/13/24 06:06: WBC 2.7 L, RBC 2.34 L, Hgb 8.1 L, Hct 23.0 L, MCV 98.3, MCH 34.6 H, MCHC 35.2, RDW 14.6, Plt Count 77 L, MPV 9.3, Neut % (Auto) 53.9, Lymph % (Auto) 34.3, [place] % (Auto) 9.6 H, Eos % (Auto) 1.1, Baso % (Auto) 0.7, Neut # (Auto) 1.5 L, Lymph # (Auto) 0.9, [place] # (Auto) 0.3, Eos # (Auto) 0.0, Baso # (Auto) 0.0, Sodium 131 L, Potassium 3.8, Chloride 102, Carbon Dioxide 21 L, Anion Gap 11.8, BUN 6 L D, Creatinine 0.40 L, Estimated Creat Clear 51, Estimated GFR 159, Est GFR ( Amer) 193 D, Glucose 97, Calcium 9.0, Phosphorus 1.3 L D, Magnesium 1.9 D, Total Bilirubin 1.2, AST 61 H D, ALT 16, Alkaline Phosphatase 260 H, Total Protein 6.0 L D, Albumin 3.2 L D, Globulin 2.8, Albumin/Globulin Ratio 1.1 I & O for Labs for Last 24 Hours: Intake & Output 09/10/24 09/11/24 09/12/24 09/13/24 23:59 23:59 23:59 23:59 Intake Total 540 / 1040 500 / 500 Output Total 350 / 350 200 / 200 Balance 190 / 690 300 / 300 Weight 57.561 kg 54.114 kg 58.695 kg Assessment and Plan *Assessment and plan (1) Cholelithiasis without cholecystitis: Status: Acute Category: Medical Code(s): K80.20 - Calculus of gallbladder without cholecystitis without obstruction (2) Gallstone pancreatitis: Status: Acute Category: Medical Code(s): K85.10 - Biliary acute pancreatitis without necrosis or infection (3) Pancreatitis: Status: Acute Category: Medical Code(s): K85.90 - Acute pancreatitis without necrosis or infection, unspecified (4) Choledocholithiasis: Status: Acute Category: Medical Code(s): K80.50 - Calculus of bile duct without cholangitis or cholecystitis without obstruction (5) Hypophosphatemia: Status: Acute Category: Medical Code(s): E83.39 - Other disorders of phosphorus metabolism (6) Hypomagnesemia: Status: Acute Category: Medical Code(s): E83.42 - Hypomagnesemia (7) Hypercalcemia: Status: Acute Category: Medical Code(s): E83.52 - Hypercalcemia (8) Severe protein-calorie malnutrition: Status: Acute Category: Medical Code(s): E43 - Unspecified severe protein-calorie malnutrition Plan 69-year-old female who presented with several days of nausea vomiting and diarrhea. Found to be malnourished with severe electrolyte disturbances. Concern for pancreatitis and cholelithiasis on presentation. GI consulted to assist with care. Planning on ERCP today. Continue to aggressively replace electrolyte disturbances. High risk for refeeding syndrome with nutritional deficiencies. Continues to require inpatient management. Problems addressed as follows: #Cholelithiasis #Pancreatitis -Discussed case with GI, going for ERCP today. Patient likely has gallstone pancreatitis given CT findings. N.p.o. this morning. Further management pending ERCP findings -Will gradually advance diet after procedure -No nausea or vomiting today. - Bilirubin 1.2, AST 61, ALT 16, alk phos 260. Repeat CBC, CMP, magnesium, phosphorus ordered for the morning Anemia: Hemoglobin 8.1. No active signs of bleeding. Has trickled down with nutritional support and labs. Hemoglobin at discharge month and a half ago 8.4. Previous workup with normal B12 and iron levels in July. Suspect multifactorial due to nutritional deficiency Hypophosphatemia Hypomagnesemia Hypokalemia - Phosphate low at 1.3, continue aggressive replacement with 2 rounds of IV 15 mmol potassium phosphate today. Will initiate daily potassium phosphate supplementation -Magnesium 1.9, no need for replacement today. Potassium better at 3.8. Mild hyponatremia with sodium of 131. Anticipate improvement with nutritional supplementation and regular diet. - Kidney function normal with BUN 6, creatinine 0.4 - replace potassium and magnesium per protocol. #Calcified uterus Noted on CT, arge partially calcified fibromatous uterus. Will need outpatient follow up #Hypercalcemia Continue maintenance IV fluids. Questionable malignant uterus given CT findings Continue levothyroxine 50 mcg daily for hypothyroid Full code Regular diet after ERCP Anticoagulation contraindicated with platelets of 77
--- NOTE | 2024-09-13 14:46 | P.PCN_ITS ---
[facility] Procedure Note Date: 09/13/24 Time: 15:07 Procedure Note:: ERCP procedure Report: Endoscopic retrograde cholangiography with biliary sphincterotomy and balloon extraction and cold biopsies Endoscopist: Shahbaz Ramirez II, MD Referring Physician: None Date of Procedure: September 13, 2024 Equipment: Olympus 180 side viewing endoscope duodenoscope Sedation: MAC sedation Indication: Mrs. Jaime is a 69-year-old female who was admitted because of right upper quadrant abdominal pain and not eating. The patient does state that she began to have right upper quadrant abdominal pain a couple of weeks ago. This was nonradiating pain and was initially constant but has been more intermittent. This primarily occurs postprandially. She would have associated nausea and vomiting. She became more afraid to eat and eventually came to the emergency department where labs were checked. Her alkaline phosphatase was 293 with total bilirubin of 2.0. Her lipase was 598. Her CAT scan of the abdomen was notable for mild peripancreatic fat stranding consistent with mild pancre atitis. She does have cholelithiasis without evidence of cholecystitis. There was no bile duct dilation. The patient reports no fever. She reports no dark in urine or acholic stools. She has not had no prior episodes of pancreatitis and has no family history of gallstones. She does smoke. There is history of alcohol abuse. Initial labs showed a white blood cell count of 3.6, hemoglobin 9.4 and hematocrit 26.5. She also had some hypokalemia with potassium 2.6 and sodium 132. Her serum albumin was 4.9. Her potassium was repleted yesterday.Her alkaline phosphatase today was still elevated at 260. Her AST level trended down to 61 and her total bilirubin trended down to 1.2. Procedure: Prior to the procedure, a history and physical exam was performed, and patient's medications and allergies were reviewed. The risks (including pancreatitis), benefits and alternatives of the sedation and procedure were discussed with the patient. All questions were answered and informed consent was obtained. The patient was brought to the fluoroscopic radiology room. Patient identification and proposed procedure were verified by the physician and the nurse. The patient was placed in a swimmer's position between left lateral decubitus and prone position and the scope was passed under direct vision. Throughout the procedure, the patient's blood pressure, pulse, and oxygen saturations were monitored continuously. The ERCP was accomplished without difficulty. The patient tolerated the procedure well. Findings: The duodenoscope was passed directly into the upper esophagus and advanced to the second portion of the duodenum. There was some chronic gastritis identified and biopsies were taken from the gastric lesser curvature to rule out H. pylori. The fluoroscopic C arm was then placed into position prior to cannulation with the duodenoscope was centered in a L-shaped position fluoroscopically in the second portion of duodenum. The entire endoscopic exam was done in conjunction with fluoroscopy. The cannula was then inserted through the duodenoscope channel and preloaded with low osmolar contrast. The common bile duct was selectively cannulated on first attempt with the guidewire. The cholangiogram showed a 7 to 8 mm CBD with normal filling of the antibiotic biliary system. There was normal filling of the cystic duct and no filling defects. Notably, I after injection, there was no extravasation of bile or contrast from the ampulla and fluoroscopically, there was stasis and smooth tapering to the ampulla but no drainage. This was consistent with sphincter of Oddi spasm/dysfunction. A biliary sphincterotomy was performed and there was still no extravasation until a sweeping balloon was placed into the common bile duct and inflated to 9 mm and swept through the biliary system. There was minimal debris but excellent decompression of the biliary system. After complete clearance of the common bile duct and decompression, the procedure was ended. The pancreatic duct was not cannulated intentionally. Impression: 1. 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 Chronic gastritis?biopsies taken to rule out H. pylori Plan: It is possible that the patient passed a stone. However, there was clearly tightness of the sphincter of Oddi which can result in both pancreatitis and mild jaundice. She should benefit from biliary sphincterotomy. She does have symptomatic gallstones and will need elective cholecystectomy. Her alkaline phosphatase has been elevated for several months. I am going to obtain mitochondrial antibody to rule out PBC as well as OMAR level and smooth muscle antibody. I will follow-up the biopsies to rule out H. pylori.
--- NOTE | 2024-09-13 14:47 | P.PNANES_ITS ---
[facility] Disclaimer: The information contained in this section may have been updated after the patient was seen, as this information can be updated by other users. Surgical History (Updated 09/12/24 @ 02:36 by Aurora Spencer RN) History of tubal ligation Social History (Updated 09/12/24 @ 02:35 by Aurora Spencer RN) Smoking Status: Current every day smoker alcohol intake: current substance use type: denies use current occupational status: unemployed Travel in the last 8 weeks: None [facility] Anesthesia Checklist Patient Identification Patient Identification: Verbal (Name & ) Structural Data Admitted From: Inpatient Planned Operative Procedure/s: ercp Consent for Planned Operative Procedure(s) Verified: Yes NPO Status Verified Time NPO: 00:00 Airway Assessment Mallampati Score:: Class II C-Spine Mobility Assessed: Yes TMJ Mobility Assessed: Yes Dentition: Poor Dentition Neurological Assessment Level of Consciousness: Awake, Alert and Appropriate Anesthesia Plan Anesthesia Risk discussed: Yes Anesthesia Plan: Verified ASA Class: III Anesthesia Type: General
--- NOTE | 2024-09-13 15:14 | P.PNANES_ITS ---
[facility] Anesthesia Record Part I Anesthesia Record I Intake, IV Amount: 1,000 Hydration: Adequate Estimated blood loss (mL): 0 Urine output (mL): 0 Blood Pressure: 128/97 SaO2: 96 Pulse Rate: 99 Airway Patency: Patent Respiratory Rate: 14 Temperature: 97.5 F Patient is:: Awake and Stable Stable to PACU at:: 15:11
--- NOTE | 2024-09-13 15:17 | FL_ITS ---
FINAL REPORT CLINICAL HISTORY: ERCP in OR 72.7 sec 27.27 mGy FINDINGS: FLUOROSCOPY LESS THAN 1 HOUR HISTORY: Fluoroscopy guidance. FINDINGS: Fluoroscopic guidance was provided for ERCP in the OR. A single spot film was obtained. A total of 72.7 seconds of fluoroscopy time were used. DAP: 27.27 mGy IMPRESSION: As above. Reviewed, Interpreted and Dictated by Beatriz Davis MD Transcribed by Hfasa Gunderson Authenticated and [facility]
[2024-09-13] MEDS: LACTATED RINGERS 1000ML 1,000 ML 150 ML IV (17:28)
[2024-09-13] MEDS: K-PHOS NEUTRAL 250MG TABLET 250 MG PO ×2 (17:28→20:05)
[2024-09-13] MEDS: PRENATAL MULTIVITAMIN W/IRON 1 EACH PO (17:28)
--- NOTE | 2024-09-13 17:50 | PC.NURSE ---
VSS on RA. A&Ox4. Magnesium and phosphate replaced per protocol. IV fluids infusing per order. ERCP completed. Post op vitals to be completed at 2225. No complaints of pain. No further complaints voiced at this time. Bed alarm in place. Call light within reach.
--- NOTE | 2024-09-13 19:36 | PC.NURSE ---
patient up to chair with a pull tab alarm and call jeronimo in lap. patient aware to not get up without assistance
[2024-09-13] MEDS: SODIUM CHLORIDE 0.9% 10ML VIAL 10 ML IV (20:13)
[2024-09-13] MEDS: PANTOPRAZOLE 40MG VIAL 40 MG IV (20:13)
--- NOTE | 2024-09-13 21:10 | PC.NURSE ---
called to check on her - he would like the GI MD who performed the procedure to give him a call in regards to the ERCP/possible future choley. Told , jim i would pass this along to the oncoming nurse.
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
[2024-09-14] VITALS: BP 110/64; PULSE 73; RESP 16; TEMP 37.4; O2SAT 98
[2024-09-14 04:00] VITALS: BP 121/65; PULSE 69; RESP 16; TEMP 36.7; O2SAT 100; BMI 20.6
[2024-09-14] MEDS: LACTATED RINGERS 1000ML 1,000 ML 150 ML IV (05:07)
--- NOTE | 2024-09-14 06:35 | PC.NURSE ---
This RN took over care at 0100. Alert and oriented. Ambulates to the restroom with walker, standby assist. Patient does have urgency, will void while walking, brief in place. No complaints from patient. IV fluids infusing. Call light in reach. Bed alarm on.
[2024-09-14] MEDS: LEVOTHYROXINE 50MCG (0.05MG) TAB 50 MCG PO (06:44)
[2024-09-14 07:05] LABS: Basophils % 0.4 % (0.1-2.0); Hematocrit 21.7 % (37.0-47.0); Hemoglobin 7.9 g/dL (12.2-16.2); Lymphocytes # 0.4 K/mm3 (0.7-4.5); Lymphocytes % 13.7 % (10-50); Mean Corpuscular HGB Conc 36.4 g/dL (31.8-35.4); Mean Corpuscular Hemoglobin 35.4 pg (27.0-31.2); Mean Corpuscular Volume 97.3 fl (81-99); Mean Platelet Volume 10.1 fl (7.4-10.4); Monocytes # 0.3 K/mm3 (0.1-1.0); Monocytes % 11.3 % (1.7-9.3); Neutrophils # 2.1 K/mm3 (1.8-7.8); Neutrophils % 73.5 % (37.0-80.0); Platelet Count 98 K/mm3 (142-424); Red Blood Count 2.23 M/mm3 (4.20-5.40); Red Cell Distribution Width 14.6 % (11.5-17.5); White Blood Count 2.8 K/mm3 (4.8-10.8)
[2024-09-14 07:14] LABS: Chloride 101 mmol/L (98-107)
[2024-09-14 07:15] LABS: Albumin Level 3.2 g/dl (3.5-5.0); Potassium 3.8 mmoL/L (3.5-5.1); Sodium 133 mmol/L (136-145)
[2024-09-14 07:18] LABS: Alanine Aminotransferase 20 U/L (12-78); Albumin/Globulin Ratio 1.2 (1.1-1.8); Alkaline Phosphatase 230 U/L (38-126); Anion Gap 10.8 mEq/L (5-15); Aspartate Amino Transferase 49 U/L (14-36); Blood Urea Nitrogen 2 mg/dl (7-17); Calcium 9.2 mg/dl (8.4-10.2); Carbon Dioxide 25 mmol/L (22.0-30.0); Creatinine Clearance Estimated 50 mL/min (50-200); Estimated Glomerular Filt Rate 159 ml/min (>60); GFR (African American) 193 ML/MIN (>60); Globulin 2.7 g/dL (1.3-3.2); Glucose 133 mg/dl (74-100); Total Protein,Serum 5.9 g/dl (6.3-8.2)
--- NOTE | 2024-09-14 07:30 | P.PNANES_ITS ---
[facility] Anesthesia Record Part II Anesthesia Record Part II Discharge Time: 15:31 Destination: Surgical Day Care (OP Surgery) PACU nurse assessment reviewed?: Yes Patient Condition:: Good Anesthesia Complications:: None Swallowing reflex intact?: Yes Airway Patency: Patent Cyanosis?: No Blood Pressure: 124/58 SaO2: 99 Respiratory Rate: 20 Pulse Rate: 87 Temperature: 97.8 F Mental Status: Alert & Oriented Pain level:: 0 Nausea and/or vomitting:: None Intake, IV Amount: 0 Hydration: Adequate
[2024-09-14 07:31] VITALS: BP 124/58; PULSE 87; RESP 20; TEMP 36.6; O2SAT 99
[2024-09-14 07:42] LABS: Magnesium 1.2 mg/dl (1.6-2.3); Phosphorous 2.6 mg/dl (2.5-4.5)
[2024-09-14 08:00] VITALS: BP 165/73; PULSE 110; RESP 17; TEMP 36.6; O2SAT 91
[2024-09-14] MEDS: PANTOPRAZOLE 40MG VIAL 40 MG IV (08:09)
[2024-09-14] MEDS: K-PHOS NEUTRAL 250MG TABLET 250 MG PO ×2 (08:09→14:37)
--- NOTE | 2024-09-14 09:27 | SW/DCPLANNER ---
Addendum entered by Yusra Reagan 09/14/24 15:02: [facility] is able to accept patient. Bradley Clarke Addendum entered by Yusra Reagan 09/14/24 14:18: [facility] was not able to accept patient. Faxed patients info to [facility]. Will update once i hear back. Colton Clarke Addendum entered by Yusra Reagan 09/14/24 13:11: Spoke with patients . Patients stated that he does have a rough time getting her into the house and that the last time she had to crawl on her hands and knees to get in. I called [employer] and asked them if they could get someone out to her house to assist helping her in the house and was told yes to call them when the leave the hospital. [employer] does not service the are. Faxed patients info to [facility] will update when i hear back from them. Bradley Clarke Addendum entered by Yusra Reagan 09/14/24 12:28: Sami stated that they dont service in [employer]. I fax[facility]. Will update once i hear back if they are able to accept patient. Bradley Clarke Original Note: Spoke with patient regarding once medical stable and ready for discharge what is her plans. Patient stated that she is worried about getting into the home once she DC. I told patient that we could possibly get the [facility] fire department to help her get in due to her steps going into her home. Patient stated that she would like to do home health services now. I will fax patients info to [facility] and update when i hear back. Patient stated that she would want to know about having meals on wheels. I phone [facility] in [place] and they are actually taking referrals and its been moving quickly. Eulalia with the [facility] took patients info for meals on wheels. Bradley Clarke
[2024-09-14 09:58] VITALS: BMI 20.6
--- NOTE | 2024-09-14 10:38 | P.DS_ITS ---
General Admission date:: 09/12/24 Discharge date: 09/14/24 HPI HPI HPI: Mrs. Jaime is a 69-year-old female who was admitted because of right upper quadrant abdominal pain and not eating. The patient does state that she began to have right upper quadrant abdominal pain a couple of weeks ago. This was nonradiating pain and was initially constant but has been more intermittent. This primarily occurs postprandially. She would have associated nausea and vomiting. She became more afraid to eat and eventually came to the emergency department where labs were checked. Her alkaline phosphatase was 293 with total bilirubin of 2.0. Her lipase was 598. Her CAT scan of the abdomen was notable for mild peripancreatic fat stranding consistent with mild pancreatitis. She does have cholelithiasis without evidence of cholecystitis. There was no bile duct dilation. The patient reports no fever. She reports no dark in urine or acholic stools. She has not had no prior episodes of pancreatitis and has no family history of gallstones. She does smoke. There is history of alcohol abuse. Initial labs showed a white blood cell count of 3.6, hemoglobin 9.4 and hematocrit 26.5. She also had some hypokalemia with potassium 2.6 and sodium 132. Her serum albumin was 4.9. Hospital Course Hospital Course Hospital Course: 69-year-old female who presented with several days of nausea vomiting and diarrhea. Found to be malnourished with severe electrolyte disturbances. Concern for pancreatitis and cholelithiasis on presentation. GI consulted to assist with care. Taken for ERCP with sphincterotomy performed. Found to have sphincter of Oddi dysfunction. Aggressively replace electrolytes. Was at risk for refeeding syndrome, phosphorus normalized. Tolerating p.o. intake. Stable to discharge home with further resources. Case management consulted and assisting with setting patient up with [employer] and assistance from [employer]. Will discharge home with home health. Problems addressed as follows: #Cholelithiasis #Pancreatitis # Sphincter of Oddi dysfunction. -Patient presented with elevated liver enzymes, nausea, abdominal pain. GI was consulted. Taken for ERCP, found to have sphincter of Oddi dysfunction. Sphincterotomy performed. Patient had improvement in her pain and discomfort. Able to tolerate diet. Liver enzymes improving by day of discharge. Bilirubin 1.0, AST 49, ALT 20, alk phos 230. Given her tolerance of nutritional intake and improvement in liver enzymes, stable to discharge home with outpatient follow-up with GI. Anemia: Hemoglobin 8.1. No active signs of bleeding. Has trickled down with nutritional support and labs. Hemoglobin at discharge month and a half ago 8.4. 0.9 on day of discharge this admission. Previous workup with normal B12 and iron levels in July. Suspect multifactorial due to nutritional deficiency. Recommend daily multivitamin. Hypophosphatemia Hypomagnesemia Hypokalemia - Significant electrolyte disturbances on presentation. Consistent with malnutrition. Aggressively replaced potassium, phosphorus, magnesium. Overall doing better. By day of discharge, more or less normalized. #Calcified uterus: Noted on CT, arge partially calcified fibromatous uterus. Defer to PCP for further management as an outpatient. Would benefit from referral to gynecology to discuss possible hysterectomy. Suspect benign finding. #Hypercalcemia: Normalized with fluid resuscitation. Continue levothyroxine 50 mcg daily for hypothyroid Exam Data for Last 24 hours Vital signs and Labs for Last 24 Hours: Temp Pulse Resp BP Pulse Ox O2 Del Method 97.9 F 110 H 17 165/73 H 91 L Room Air 09/14/24 08:00 09/14/24 08:00 09/14/24 08:00 09/14/24 08:00 09/14/24 08:00 09/14/24 09:00 Laboratory Results - last 24 hr 09/14/24 06:33: WBC 2.8 L, RBC 2.23 L, Hgb 7.9 L, Hct 21.7 L, MCV 97.3, MCH 35.4 H, MCHC 36.4 H, RDW 14.6, Plt Count 98 L D, MPV 10.1, Neut % (Auto) 73.5, Lymph % (Auto) 13.7, [place] % (Auto) 11.3 H, Eos % (Auto) 0.0 L, Baso % (Auto) 0.4, Neut # (Auto) 2.1, Lymph # (Auto) 0.4 L, [place] # (Auto) 0.3, Eos # (Auto) 0.0, Baso # (Auto) 0.0, Sodium 133 L, Potassium 3.8, Chloride 101, Carbon Dioxide 25, Anion Gap 10.8, BUN 2 L D, Creatinine 0.40 L, Estimated Creat Clear 50, Estimated GFR 159, Est GFR ( Amer) 193, Glucose 133 H, Calcium 9.2, Phosphorus 2.6 D, Magnesium 1.2 L D, Total Bilirubin 1.0, AST 49 H, ALT 20, Alkaline Phosphatase 230 H, Total Protein 5.9 L, Albumin 3.2 L, Globulin 2.7, Albumin/Globulin Ratio 1.2 I & O for Last 24 hours: Intake & Output 09/11/24 09/12/24 09/13/24 09/14/24 23:59 23:59 23:59 23:59 Intake Total 540 / 1040 2110 / 2110 1344 / 1344 Output Total 350 / 350 850 / 850 0 / 0 Balance 190 / 690 1260 / 1260 1344 / 1344 Weight 57.561 kg 54.114 kg 58.695 kg 58.24 kg Constitutional Constitutional: no acute distress, thin, chronically ill appearing and cooperative *Routine HEENT Exam Head: Present normocephalic Eye: Present EOMI and PERRL ENT: Present mucous membranes moist *Routine Neck Exam Neck: Present supple; Absent lymphadenopathy *Routine Respiratory Exam Respiratory: Present CTA bilaterally; Absent rhonchi, wheezes or crackles *Routine Cardiovascular Exam Cardiovascular: Present RRR *Routine Abdominal Exam Abdominal: Present soft and normoactive bowel sounds; Absent tenderness *Routine Rectal Exam Patient deferred: visual exam *Routine Exam Patient deferred: external exam *Routine Extremities Exam Extremities: Absent cyanosis, clubbing or edema *Routine Skin Exam Skin: Present warm; Absent rash *Routine Neurological Exam Neurological: Present alert, oriented X3 and moving all extremities; Absent altered mental status Results Data Completed and Pending Labs on day of discharge: Labs from last 24 hours 09/14/24 06:33 WBC 2.8 L RBC 2.23 L Hgb 7.9 L Hct 21.7 L MCV 97.3 MCH 35.4 H MCHC 36.4 H RDW 14.6 Plt Count 98 L D MPV 10.1 Neut % (Auto) 73.5 Lymph % (Auto) 13.7 [place] % (Auto) 11.3 H Eos % (Auto) 0.0 L Baso % (Auto) 0.4 Neut # (Auto) 2.1 Lymph # (Auto) 0.4 L [place] # (Auto) 0.3 Eos # (Auto) 0.0 Baso # (Auto) 0.0 Sodium 133 L Potassium 3.8 Chloride 101 Carbon Dioxide 25 Anion Gap 10.8 BUN 2 L D Creatinine 0.40 L Estimated Creat Clear 50 Estimated GFR 159 Est GFR ( Amer) 193 Glucose 133 H Calcium 9.2 Phosphorus 2.6 D Magnesium 1.2 L D Total Bilirubin 1.0 AST 49 H ALT 20 Alkaline Phosphatase 230 H Total Protein 5.9 L Albumin 3.2 L Globulin 2.7 Albumin/Globulin Ratio 1.2 DS: Diagnosis Discharge Diagnosis (1) Cholelithiasis without cholecystitis: Status: Acute Code(s): K80.20 - Calculus of gallbladder without cholecystitis without obstruction (2) Gallstone pancreatitis: Status: Acute Code(s): K85.10 - Biliary acute pancreatitis without necrosis or infection (3) Pancreatitis: Status: Acute Code(s): K85.90 - Acute pancreatitis without necrosis or infection, unspecified (4) Choledocholithiasis: Status: Acute Code(s): K80.50 - Calculus of bile duct without cholangitis or cholecystitis without obstruction (5) Hypophosphatemia: Status: Acute Code(s): E83.39 - Other disorders of phosphorus metabolism (6) Hypomagnesemia: Status: Acute Code(s): E83.42 - Hypomagnesemia (7) Hypercalcemia: Status: Acute Code(s): E83.52 - Hypercalcemia (8) Severe protein-calorie malnutrition: Status: Acute Code(s): E43 - Unspecified severe protein-calorie malnutrition (9) Sphincter of Oddi dysfunction: Status: Acute Code(s): K83.4 - Spasm of sphincter of Oddi Meds Home Medications and Allergies Home Medications ?Medication ?Instructions ?Recorded ?Confirmed ?Type levothyroxine 50 mcg capsule 50 mcg PO DAILY #30 caps 07/27/24 09/12/24 Rx pantoprazole 40 mg tablet,delayed 40 mg PO HS 30 days #30 tabs 09/14/24 Rx release vit 137-ferrous fumarate 1 tab PO 1700 30 days #30 tabs 09/14/24 Rx 27 mg iron-folic acid 0.8 mg tablet New Prescriptions to Start Prescriptions: pantoprazole Allen Byrd [id number] Allen Byrd Allergies Allergy/AdvReac Type Severity Reaction Status Date / Time No Known Allergies Allergy Verified 07/26/24 16:27 Discharge Plan Disposition Patient Disposition: Home Health Service Condition: Fair Discharge Order Discharge Orders: Discharge Order (Routine); Ordered 09/14/24 Ordered By: Allen Byrd Follow up Plan Follow up with: Fatmata Velarde PA [Physician Editing Computer Publisher] - 09/12/24 (please call for new patient appointment) Prescriptions/Medication Reconciliation: New pantoprazole 40 mg Tablet,Delayed Release (Dr/Ec) 40 mg PO HS 30 Days Qty: 30 0RF [id number] 27mg iron- 0.8 mg Tablet 1 tab PO 1700 30 Days Qty: 30 0RF Continued levothyroxine 50 mcg capsule 50 mcg PO DAILY Qty: 30 0RF Discontinued omeprazole magnesium [Prilosec OTC] 20 mg Tablet,Delayed Release (Dr/Ec) 20 mg PO DAILY Problem Reconciliation Problems Reviewed?: Yes Patient Discharge Instructions ACTIVITY: Continue current activity DIET: continue same diet Patient Instructions: Fat-Restricted Diet, DI for Pancreatitis, DI for Hyperkalemia, DI for Biliary Colic, NCM High-Calorie High-Protein Diet, Tips for Adding Protein - Diet Print Language: Cymro Providers Primary Care Provider: Provider,Referral Admit Provider: Allen Byrd Attending Provider: Allen Byrd
--- NOTE | 2024-09-14 11:56 | PC.NURSE ---
ENTERED PT ROOM TO HANG IV MAGNESIUM BUT PATIENT HAD REMOVED IV'S PER SELF. UNABLE TO HANG IV MAGNESIUM AT THIS TIME PT WILL NOT LET ME START A NEW IV.
[2024-09-14 12:00] VITALS: BP 156/74; PULSE 80; RESP 16; TEMP 36.6; O2SAT 92
[2024-09-15 19:26] LABS: Actin (Smooth Muscle) Antibody 6 Units (0-19); Mitochondrial (M2) Antibody <20.0 Units (0.0-20.0)
[2024-09-17 15:10] LABS: Angiotensin Converting Enzyme 43 U/L (14-82); Liver-Kidney Microsomal Ab <1.0 Units (0.0-20.0)
--- NOTE | 2024-09-18 10:18 | SW/DCPLANNER ---
Phoned patient x2. Left messages with name and call back number. Bradley Clarke
== END 2024-09-14 15:36 | disposition home health service (06) | DRG 444 ==
LOC: ER 09-12 01:21 → 2ND 09-12 01:45
PROVIDERS: Internal Medicine Gastroenterology; Nurse Practitioner Acute Care; Admitting Provider Internal Medicine Adolescent Medicine; Emergency Provider Emergency Medicine; Visit Provider Internal Medicine Adolescent Medicine
PROC: BF131ZZ Fluoroscopy of Gallbladder and Bile Ducts using Low Osmolar Contrast (ICD-10-PCS; CPT 43260; principal; 2024-09-13 14:30)
DX: K83.4 Spasm of sphincter of Oddi (principal); E43 Unspecified severe protein-calorie malnutrition; K85.10 Biliary acute pancreatitis without necrosis or infection; R17 Unspecified jaundice; E87.1 Hypo-osmolality and hyponatremia; Z59.19 Other inadequate housing; K80.50 Calculus of bile duct without cholangitis or cholecystitis without obstruction; K80.20 Calculus of gallbladder without cholecystitis without obstruction; R10.11 Right upper quadrant pain; D64.9 Anemia, unspecified; E83.39 Other disorders of phosphorus metabolism; E83.42 Hypomagnesemia; E83.52 Hypercalcemia; F17.210 Nicotine dependence, cigarettes, uncomplicated; F10.10 Alcohol abuse, uncomplicated; E87.6 Hypokalemia; R11.2 Nausea with vomiting, unspecified; R19.7 Diarrhea, unspecified; N85.8 Other specified noninflammatory disorders of uterus; R53.1 Weakness; R32 Unspecified urinary incontinence; R63.0 Anorexia; Z68.20 Body mass index [BMI] 20.0-20.9, adult; Z99.89 Dependence on other enabling machines and devices; E03.9 Hypothyroidism, unspecified; Z79.890 Hormone replacement therapy
CPT/HCPCS: 36415; 71045; 74177; 74330; 80048; 80053; 80307; 80320; 80329; 81001; 82009; 82164; 82550; 82728; 82803; 83540; 83550; 83690; 83735; 83880; 84100; 84436; 84443; 84484; 85025; 85610; 86255; 86256; 86376; 86803; 87389; 93005; 97163; 97165; 99285; C1726; C1769; J1100; J1885; J2250; J2405; J2470; J3010; J3411; J3475; J7120; Q9967

== ENCOUNTER 2024-11-27 17:01 | Emergency (ER) | payer MEDICARE, SELFPAY ==
[2024-11-27] VITALS (12 sets, daily range): BP systolic 107–134; BP diastolic 65–85; PULSE 83–104; RESP 13–25; TEMP 36.6–36.8; O2SAT 94–99; BMI 25.4
--- NOTE | 2024-11-27 17:04 | CT_ITS ---
PROCEDURE INFORMATION: Exam: CTA Head With Contrast, Arteriography Exam date and time: 11/27/2024 5:08 PM Age: 69 years old Clinical indication: Stroke-like symptoms; Altered mental status/memory loss; Additional info: CVA symptoms TECHNIQUE: Imaging protocol: Computed tomographic angiography of the head with contrast. Exam focused on the arteries. 3D rendering (Not supervised by radiologist): MIP and/or 3D reconstructed images were created by the technologist. Radiation optimization: All CT scans at this facility use at least one of these dose optimization techniques: automated exposure control; mA and/or kV adjustment per patient size (includes targeted exams where dose is matched to clinical indication); or iterative reconstruction. Contrast material: ISOVUE 370; Contrast volume: 80 ml; Contrast route: INTRAVENOUS (IV); COMPARISON: CT HEAD/BRAIN WO CON 11/27/2024 5:04 PM FINDINGS: ANTERIOR CIRCULATION: Right internal carotid artery: Intracranial segment is patent with no significant stenosis. No aneurysm. Right middle cerebral artery: No occlusion or significant stenosis. No aneurysm. Right anterior cerebral artery: No occlusion or significant stenosis. No aneurysm. Left internal carotid artery: Intracranial segment is patent with no significant stenosis. No aneurysm. Left middle cerebral artery: No occlusion or significant stenosis. No aneurysm. Left anterior cerebral artery: No occlusion or significant stenosis. No aneurysm. POSTERIOR CIRCULATION: Right vertebral artery: No occlusion or significant stenosis. No aneurysm. Left vertebral artery: No occlusion or significant stenosis. No aneurysm. Basilar artery: No occlusion or significant stenosis. No aneurysm. Right posterior cerebral artery: No occlusion or significant stenosis. No aneurysm. Left posterior cerebral artery: No occlusion or significant stenosis. No aneurysm. Brain: No definite mass, mass effect, or midline shift. Cerebral ventricles: No ventriculomegaly. Bones/joints: Unremarkable. No acute fracture. Soft tissues: Unremarkable. IMPRESSION: No large vessel stenosis or occlusion.
--- NOTE | 2024-11-27 17:04 | CT_ITS ---
PROCEDURE INFORMATION: Exam: CTA Neck With Contrast Exam date and time: 11/27/2024 5:08 PM Age: 69 years old Clinical indication: Stroke-like symptoms; Altered mental status/memory loss; Additional info: CVA symptoms TECHNIQUE: Imaging protocol: Computed tomographic angiography of the neck with contrast. Exam focused on the cervical segments of the vasculature. 3D rendering (Not supervised by radiologist): MIP and/or 3D reconstructed images were created by the technologist. Radiation optimization: All CT scans at this facility use at least one of these dose optimization techniques: automated exposure control; mA and/or kV adjustment per patient size (includes targeted exams where dose is matched to clinical indication); or iterative reconstruction. Contrast material: ISOVUE 370; Contrast volume: 80 ml; Contrast route: INTRAVENOUS (IV); COMPARISON: CT HEAD/BRAIN WO CON 11/27/2024 5:04 PM FINDINGS: Right common carotid artery: No stenosis. No dissection or occlusion. Right internal carotid artery: Moderate right ICA stenosis, greater than 50% by NASCET criteria. Right external carotid artery: No occlusion or stenosis of the origin. Left common carotid artery: No stenosis. No dissection or occlusion. Left internal carotid artery: Moderate left ICA stenosis at the bulb, heavily calcified. Greater than 50% by NASCET criteria. Left external carotid artery: No occlusion or stenosis of the origin. Right vertebral artery: No stenosis. No dissection or occlusion. Left vertebral artery: No stenosis. No dissection or occlusion. Soft tissues: Normal. No significant soft tissue swelling. Bones/joints: No acute fracture. IMPRESSION: 1. Moderate right ICA stenosis, greater than 50% by NASCET criteria. 2. Moderate left ICA stenosis at the bulb, heavily calcified. Greater than 50% by NASCET criteria. REFERENCES: NASCET CRITERIA. The degree of stenosis in the cervical segment of the internal carotid artery is based on NASCET criteria. Normal is no stenosis. Mild is less than 50% stenosis. Moderate is 50-69% stenosis. Severe is 70% to 99% stenosis. Total occlusion is no detectable patent lumen.
--- NOTE | 2024-11-27 17:05 | XR_ITS ---
PROCEDURE INFORMATION: Exam: XR Chest Exam date and time: 11/27/2024 5:11 PM Age: 69 years old Clinical indication: Other: CVA rule out TECHNIQUE: Imaging protocol: Radiologic exam of the chest. Views: 1 view. COMPARISON: CT ANGIO NECK 11/27/2024 5:08 PM FINDINGS: Lungs: Unremarkable. No consolidation. Pleural spaces: Unremarkable. No pleural effusion. No pneumothorax. Heart/Mediastinum: Unremarkable. No cardiomegaly. Bones/joints: Unremarkable. IMPRESSION: No acute findings.
--- NOTE | 2024-11-27 17:05 | CT_ITS ---
PROCEDURE INFORMATION: Exam: CT Head Without Contrast Exam date and time: 11/27/2024 5:04 PM Age: 69 years old Clinical indication: Stroke-like symptoms; Other: CVA symptoms TECHNIQUE: Imaging protocol: Computed tomography of the head without contrast. Radiation optimization: All CT scans at this facility use at least one of these dose optimization techniques: automated exposure control; mA and/or kV adjustment per patient size (includes targeted exams where dose is matched to clinical indication); or iterative reconstruction. Other technique: STROKE PROTOCOL was implemented. COMPARISON: No relevant prior studies available. FINDINGS: Brain: Periventricular and subcortical small vessel ischemic changes appear chronic. Mild atrophy associated. No acute hemorrhage, mass effect, midline shift, or extra-axial fluid collection. Cerebral ventricles: No ventriculomegaly. Paranasal sinuses: Visualized sinuses are unremarkable. No fluid levels. Mastoid air cells: Visualized mastoid air cells are well aerated. Bones: Unremarkable. No acute fracture. Soft tissues: Unremarkable. IMPRESSION: No acute intracranial abnormality identified. ASSESSMENT: ASPECTS ([place] Stroke Program Early CT Score) is 10.
--- NOTE | 2024-11-27 17:12 | HMH.EDGENADL ---
Discharge Plan Disposition Patient Disposition: Home, Self-Care Condition: Good Prescriptions Prescriptions: New potassium chloride [K-Tab] 20 mEq tablet extended release 20 meq PO DAILY Qty: 7 0RF magnesium oxide 500 mg magnesium tablet 500 mg PO DAILY Qty: 14 0RF No Action levothyroxine 50 mcg capsule 50 mcg PO DAILY Qty: 30 0RF pantoprazole 40 mg Tablet,Delayed Release (Dr/Ec) 40 mg PO HS 30 Days Qty: 30 0RF [id number] acd 27mg iron- 0.8 mg Tablet 1 tab PO 1700 30 Days Qty: 30 0RF Referrals Follow up/Referrals: Provider,Referral, MD [Referring, Medical] - See instructions Activity Restrictions/Add. Instructions Additional Instructions/Restrictions: Please return to the emergency department any worsening signs or symptoms, please follow-up with your PCP, please continue take all medication as prescribed. Please take your potassium supplement and magnesium supplement once daily for 1 week Clinical Impressions Clinical Impression: Hypomagnesemia, Elevated liver enzymes, Hypokalemia Elevated ETOH level Qualifiers: Blood alcohol level: 200-239 mg/100 ml Qualified Code(s): Y90.7 - Blood alcohol level of 200-239 mg/100 ml Instructions Patient Instructions: DI for Alcohol Use Disorder, DI for Hypokalemia Print Language Print Language: Lithuanian Discharge ED Provider: Dash Mejia General Adult HPI <CORNELL Tate - Last Filed: 11/27/24 20:44> General Chief complaint: Neuro Symptoms/Deficit Stated complaint: Poss CVA Time Seen by Provider: 11/27/24 17:04 Mode of Arrival: EMS Source of Information: Patient Limitations: No Limitations History of Present Illness HPI narrative: 69-year-old female presents the emergency department via EMS as an advanced stroke alert, last known well is unknown, however there was some concern for EtOH , per EMS this patient has longstanding history of this, with smell of alcohol and alcohol bottles on the scene. Patient significant other found patient down covered in blood in feces , unknown time down, felt to have some left-sided gaze preference at the scene, however patient became quite agitated/combative with EMS staff, concern for stroke versus altered mental status versus EtOH, thus advanced stroke alert was called. Per my examination of the patient the bedside/in the [place] area, patient is GCS of 14, some confusion about date and time, oriented to person and place, response to commands, moves all extremities to command, denies any fever chills chest pain shortness of breath, admits to cough, admits to vomiting, denies any diarrhea constipation no urinary type symptomatology, she is a current everyday smoker, admits to drinking alcohol today, when asked how much and what she drank patient states I do not know I had some vodka today . Denies any other drug use. Other past medical history upon chart review is notable for anemia, severe protein calorie malnutrition, hypercalcemia, hypothyroidism, GERD, patient denies any other surgical history, initial triage vitals are unremarkable with the exception of mild tachycardia at 101 bpm and initial NIH is a 0 at the bedside. Onset (ago): unknown Related Data Previous Rx's ?Medication ?Instructions ?Recorded levothyroxine 50 mcg capsule 50 mcg PO DAILY #30 caps 07/27/24 pantoprazole 40 mg tablet,delayed 40 mg PO HS 30 days #30 tabs 09/14/24 release vit 137-ferrous fumarate 1 tab PO 1700 30 days #30 tabs 09/14/24 27 mg iron-folic acid 0.8 mg tablet magnesium oxide 500 mg PO DAILY #14 tabs 11/27/24 potassium chloride 20 mEq 20 meq PO DAILY #7 tabs 11/27/24 tablet,extended release (K-Tab) Allergies Allergy/AdvReac Type Severity Reaction Status Date / Time No Known Allergies Allergy Verified 07/26/24 16:27 [facility] <CORNELL Tate - Last Filed: 11/27/24 20:44> [facility] Disclaimer: The information contained in this section may have been updated after the patient was seen, as this information can be updated by other users. Medical History (Updated 11/27/24 @ 20:43 by CORNELL Tate) Alcohol intoxication Encounter for social work intervention Thrombocytopenia Hypokalemia Ground-level fall Surgical History History of tubal ligation Social History Smoking Status: Current every day smoker alcohol intake: current substance use type: denies use current occupational status: unemployed Travel in the last 8 weeks?: None Have you lived/traveled outside US in past 30 days?: No Contact w/someone who lives/traveled outside US past 30 days?: No Exposure to someone with infectious disease in past 14 days?: No Do you have a fever (greater than 100.4 F or 38 C)?: No Have you tested positive for COVID-19?: No Exposed to someone with COVID-19 in past 14 days?: No Do you have a sore throat?: No Do you have a cough?: No Do you have any weakness?: No Do you have any diarrhea?: No Are you experiencing any unusual bleeding?: No Do you have any muscle aches/pain?: No Do you have any abdominal pain?: No Are you experiencing loss of taste or smell?: No Other Medical History Have you received the Flu Vaccine for this season: No Have you received the Pneumonia Vaccine: No <CORNELL Tate - Last Filed: 11/27/24 20:44> ROS Obtained: Yes All systems reviewed & no additional complaints except as documented Physical Exam <CORNELL Tate - Last Filed: 11/27/24 20:44> General General appearance: alert, in no apparent distress and appears intoxicated Head Head exam: atraumatic and normocephalic Eye Eye exam: Present PERRL and EOMI ENT ENT exam: Present mucous membranes moist Neck Neck exam: Present normal inspection Chest Chest inspection: Present normal inspection and symmetric chest wall rise Respiratory Respiratory exam: Present normal lung sounds bilaterally; Absent respiratory distress, wheezes or stridor Cardiovascular Cardiovascular exam: Present regular rate and normal rhythm Abdominal Exam Abdominal exam: Present soft; Absent tenderness, guarding, rebound or rigidity Extremities Exam Extremities exam: Present normal inspection Back Exam Back exam: Present normal inspection and full ROM Neurological Exam Neurological exam: Present alert and other (GCS of 14, some disorientation to time, oriented to person and place, 5 out of 5 strength in bilateral lower and upper extremities, no limb drift in the bilateral lower and upper extremities, no gross sensation deficit,); Absent oriented X3 Expanded Neurological Exam Patient oriented to: Present person and place Speech: Present fluid speech Motor strength - LUE: 5/5 Motor strength - LLE: 5/5 Motor strength - RLE: 5/5 Coma scale eye opening: Spontaneous Coma scale motor response: Obeys commands Coma scale verbal response: Confused Coma scale total: 14 Psychiatric Psychiatric exam: Present normal affect Skin Skin exam: Present warm, dry and other (Left lateral forearm has small area of skin abrasion.) <Dash Mejia MD - Last Filed: 11/27/24 22:03> Expanded Neurological Exam Coma scale total: 14 Medical Decision Making <CORNELL Tate - Last Filed: 11/27/24 20:44> Medical Records Medical records reviewed: Yes I reviewed the patient's medical records. Screening: Per USPSTF and CDC recommendations, given the prevalence of disease in our region, it is our hospital?s policy to screen for HIV and viral Hepatitis for all patients aged 18 and over and those with ongoing risk factors. Christopher Inquiry Pt receiving controlled substance: No Christopher was queried for this patient: No Vital Signs: 11/27/24 17:19 11/27/24 17:25 11/27/24 17:44 Temperature 97.8 F Temperature Source Oral Pulse Rate 104 H 90 Pulse Rate [Right] 101 H Respiratory Rate 18 Blood Pressure 132/78 124/75 Blood Pressure [Right Arm] 132/78 Blood Pressure Mean 111 88 Blood Pressure Mean [Right Arm] 96 Blood Pressure Source [Right Arm] Automatic Cuff Blood Pressure Position [Right Arm] Supine 02 Sat by Pulse Oximetry 99 98 99 Oxygen Delivery Method Room Air 11/27/24 18:00 11/27/24 19:00 11/27/24 19:31 Temperature Temperature Source Pulse Rate 85 83 Pulse Rate [Right] Respiratory Rate 17 16 25 H Blood Pressure 108/65 L 113/69 132/85 Blood Pressure [Right Arm] Blood Pressure Mean 81 Blood Pressure Mean [Right Arm] Blood Pressure Source [Right Arm] Blood Pressure Position [Right Arm] 02 Sat by Pulse Oximetry 94 L 95 96 Oxygen Delivery Method Room Air Lab Data Lab results reviewed: Yes I reviewed the patient's lab results. Lab Results 11/27/24 17:19: WBC 2.9 L, RBC 3.33 L, Hgb 11.4 L, Hct 32.4 L, MCV 97.3, MCH 34.2 H, MCHC 35.2, RDW 14.8, Plt Count 62 L, MPV 9.4, Neut % (Auto) 54.9, Lymph % (Auto) 35.7, [place] % (Auto) 5.4, Eos % (Auto) 2.0, Baso % (Auto) 1.0, Neut # (Auto) 1.6 L, Lymph # (Auto) 1.1, [place] # (Auto) 0.2, Eos # (Auto) 0.1, Baso # (Auto) 0.0, PT 13.7 H, INR 1.26 H, APTT 28.0, Sodium 135 L, Potassium 3.0 L, Chloride 100, Carbon Dioxide 22, Anion Gap 16.0 H, BUN 10, Creatinine 0.70, Estimated Creat Clear 62, Estimated GFR 83, Est GFR ( Amer) 101, Glucose 120 H, Hemoglobin A1c 4.5, Calcium 9.4, Magnesium 1.0 L, Total Bilirubin 1.0, AST 85 H, ALT 30, Alkaline Phosphatase 309 H, Troponin I < 0.01, NT-Pro-B Natriuret Pep 367 H, Total Protein 7.0, Albumin 3.6, Globulin 3.4 H, Albumin/Globulin Ratio 1.1, Triglycerides 236 H, Cholesterol 177, LDL Cholesterol Direct 95.88 L, VLDL Cholesterol 47 H, HDL Cholesterol 41, Cholesterol/HDL Ratio 4.3 H, TSH 8.04 H, Thyroxine (T4) 8.5, Plasma/Serum Alcohol 299 H 11/27/24 17:19 11/27/24 17:19 Orders (Tests/Meds): ED MEDICATIONS Generic Name Dose Route Start Last Admin Trade Name Freq PRN Reason Stop Dose Admin Sodium Chloride 10 ml 11/27/24 17:12 11/27/24 17:13 Sodium Chloride 0.9% 10ml Syr (Rad Only) IV 12/27/24 17:11 10 ml NEEDED PRN Administration Maintain IV Site Discontinued Medications Generic Name Dose Route Start Last Admin Trade Name Freq PRN Reason Stop Dose Admin Magnesium Sulfate 2 gm in 50 mls @ 50 mls/hr 11/27/24 18:10 11/27/24 18:15 Magnesium Sulfate 2gm/50ml Premix IV 11/27/24 19:09 50 mls/hr ONCE ONE Administration Ibuprofen 400 mg 11/27/24 18:22 11/27/24 18:31 Ibuprofen 400 Mg Tablet PO 11/27/24 18:23 400 mg ONCE ONE Administration Iopamidol 75 ml 11/27/24 17:12 11/27/24 17:13 Iopamidol-370 (76%);100ml Bottle IV 11/27/24 17:13 75 ml ONCE ONE Administration Potassium Chloride 40 meq 11/27/24 18:10 11/27/24 18:15 Potassium Chloride 20meq Tab PO 11/27/24 18:11 40 meq ONCE ONE Administration Sodium Chloride 50 ml 11/27/24 17:12 11/27/24 17:13 0.9 % Sodium Chloride 50 Ml Vial IV 11/27/24 17:13 50 ml ONCE ONE Administration ORDERS Category Date Time Status CT angio head Stat Cat Scan 11/27/24 17:[address] angio neck Stat Cat Scan 11/27/24 17:[address] head/brain wo con Stat Cat Scan 11/27/24 17:05 Completed XR chest portable Stat Exams 11/27/24 17:05 Completed Complete Blood Count Auto Diff Stat Lab 11/27/24 17:19 Completed Comprehensive Metabolic Panel Stat Lab 11/27/24 17:19 Completed Drug Screen,Urine Stat Lab 11/27/24 17:06 Ordered Ethyl Alcohol Stat Lab 11/27/24 17:19 Completed Hemoglobin A1C Stat Lab 11/27/24 17:19 Completed Lipid Panel Stat Lab 11/27/24 17:19 Completed Magnesium Stat Lab 11/27/24 17:19 Completed NT Pro Brain Natriuretic Pep. Stat Lab 11/27/24 17:19 Completed PT INR [Prothrombin Time INR] Stat Lab 11/27/24 17:19 Completed PTT [Activated Partial Thrombo Time] Stat Lab 11/27/24 17:19 Completed T4 (Thyroxine) Stat Lab 11/27/24 17:19 Completed TSH [Thyroid Stimulating Hormone] Stat Lab 11/27/24 17:19 Completed Troponin I Q3H Lab 11/27/24 23:15 Ordered Troponin I Stat Lab 11/27/24 17:19 Completed Urinalysis and Microscopic Stat Lab 11/27/24 17:05 Ordered Medical Decision Narrative: 69-year-old female presents to the emergency department as advanced stroke alert per EMS, differential diagnosis include but not limited to TIA/CVA, acute SDH, traumatic SAH, EtOH intoxication, encephalopathy, metabolic cephalo-, uremic encephalopathy, cardiac arrhythmia, electrolyte disturbance, acute UTI, thyrotoxicosis, pneumonia among others. Discussed patient case with attending physician Dr. Mejia Patient advanced stroke alert per EMS, vitals will obtain basic laboratory studies, EKG, CTA head and neck, CT head, CXR, UDS, ethyl alcohol level, lipid level, magnesium level, proBNP, troponin, coags, TSH and T4, urinalysis, I reviewed the patient's CT head without contrast, CTA head and neck with and without contrast along with the corresponding radiological reports, on noncontrasted scan, no acute intracranial abnormality identified. CTA head shows no large vessel stenosis or occlusion, CTA neck shows moderate right ICA stenosis greater than 50% by NASCET criteria, moderate left ICA stenosis at the bulb heavily calcified greater than 50% by NASCET criteria. Reviewed the patient's chest x-ray along the corresponding radiologic report, no acute findings. T4 within normal limits, troponin within normal limits Will give 40 mEq of p.o. potassium, and will give 2 g of IV magnesium. CBC unremarkable. PTT is minimally elevated at 30.7, INR is minimally elevated at 1.26. Patient is complaining of a headache, I was notified by nursing staff at approximately 6:20 PM, will also attempt p.o. challenge with p.o. 400 mg Motrin. Blood alcohol level is elevated at 299. Examination the patient approximate 8:30 p.m., patient is alert and oriented GCS 15, appears to have clinical sobriety, will discharge patient home, patient did let me know that she currently ambulates with a walker at baseline has been going on for quite some time. Patient was given strict ED return precautions, patient voiced understanding and agreed with the treatment plan/discharge plan. Prescribe the patient 20 mEq p.o. potassium for 1 week, as well as 500 mg magnesium oxide p.o. daily for 1 week due to alcohol induced vomiting and electrolyte disturbances. Patient is neurovascularly/neurologically intact, no stroke noted on CT head and angiogram studies, NIH still remains 0. <Dash Mejia MD - Last Filed: 11/27/24 22:03> Vital Signs: 11/27/24 17:19 11/27/24 17:25 11/27/24 17:44 Temperature 97.8 F Temperature Source Oral Pulse Rate 104 H 90 Pulse Rate [Right] 101 H Respiratory Rate 18 Blood Pressure 132/78 124/75 Blood Pressure [Right Arm] 132/78 Blood Pressure Mean 111 88 Blood Pressure Mean [Right Arm] 96 Blood Pressure Source [Right Arm] Automatic Cuff Blood Pressure Position [Right Arm] Supine 02 Sat by Pulse Oximetry 99 98 99 Oxygen Delivery Method Room Air 11/27/24 18:00 11/27/24 19:00 11/27/24 19:31 Temperature Temperature Source Pulse Rate 85 83 Pulse Rate [Right] Respiratory Rate 17 16 25 H Blood Pressure 108/65 L 113/69 132/85 Blood Pressure [Right Arm] Blood Pressure Mean 81 Blood Pressure Mean [Right Arm] Blood Pressure Source [Right Arm] Blood Pressure Position [Right Arm] 02 Sat by Pulse Oximetry 94 L 95 96 Oxygen Delivery Method Room Air Lab Data Lab Results 11/27/24 17:19: WBC 2.9 L, RBC 3.33 L, Hgb 11.4 L, Hct 32.4 L, MCV 97.3, MCH 34.2 H, MCHC 35.2, RDW 14.8, Plt Count 62 L, MPV 9.4, Neut % (Auto) 54.9, Lymph % (Auto) 35.7, [place] % (Auto) 5.4, Eos % (Auto) 2.0, Baso % (Auto) 1.0, Neut # (Auto) 1.6 L, Lymph # (Auto) 1.1, [place] # (Auto) 0.2, Eos # (Auto) 0.1, Baso # (Auto) 0.0, PT 13.7 H, INR 1.26 H, APTT 28.0, Sodium 135 L, Potassium 3.0 L, Chloride 100, Carbon Dioxide 22, Anion Gap 16.0 H, BUN 10, Creatinine 0.70, Estimated Creat Clear 62, Estimated GFR 83, Est GFR ( Amer) 101, Glucose 120 H, Hemoglobin A1c 4.5, Calcium 9.4, Magnesium 1.0 L, Total Bilirubin 1.0, AST 85 H, ALT 30, Alkaline Phosphatase 309 H, Troponin I < 0.01, NT-Pro-B Natriuret Pep 367 H, Total Protein 7.0, Albumin 3.6, Globulin 3.4 H, Albumin/Globulin Ratio 1.1, Triglycerides 236 H, Cholesterol 177, LDL Cholesterol Direct 95.88 L, VLDL Cholesterol 47 H, HDL Cholesterol 41, Cholesterol/HDL Ratio 4.3 H, TSH 8.04 H, Thyroxine (T4) 8.5, Plasma/Serum Alcohol 299 H Orders (Tests/Meds): ED MEDICATIONS Generic Name Dose Route Start Last Admin Trade Name Freq PRN Reason Stop Dose Admin Sodium Chloride 10 ml 11/27/24 17:12 11/27/24 17:13 Sodium Chloride 0.9% 10ml Syr (Rad Only) IV 12/27/24 17:11 10 ml NEEDED PRN Administration Maintain IV Site Discontinued Medications Generic Name Dose Route Start Last Admin Trade Name Héctorq PRN Reason Stop Dose Admin Magnesium Sulfate 2 gm in 50 mls @ 50 mls/hr 11/27/24 18:10 11/27/24 18:15 Magnesium Sulfate 2gm/50ml Premix IV 11/27/24 19:09 50 mls/hr ONCE ONE Administration Ibuprofen 400 mg 11/27/24 18:22 11/27/24 18:31 Ibuprofen 400 Mg Tablet PO 11/27/24 18:23 400 mg ONCE ONE Administration Iopamidol 75 ml 11/27/24 17:12 11/27/24 17:13 Iopamidol-370 (76%);100ml Bottle IV 11/27/24 17:13 75 ml ONCE ONE Administration Potassium Chloride 40 meq 11/27/24 18:10 11/27/24 18:15 Potassium Chloride 20meq Tab PO 11/27/24 18:11 40 meq ONCE ONE Administration Sodium Chloride 50 ml 11/27/24 17:12 11/27/24 17:13 0.9 % Sodium Chloride 50 Ml Vial IV 11/27/24 17:13 50 ml ONCE ONE Administration ORDERS Category Date Time Status CT angio head Stat Cat Scan 11/27/24 17:[address] angio neck Stat Cat Scan 11/27/24 17:[address] head/brain wo con Stat Cat Scan 11/27/24 17:05 Completed XR chest portable Stat Exams 11/27/24 17:05 Completed Complete Blood Count Auto Diff Stat Lab 11/27/24 17:19 Completed Comprehensive Metabolic Panel Stat Lab 11/27/24 17:19 Completed Drug Screen,Urine Stat Lab 11/27/24 17:06 Ordered Ethyl Alcohol Stat Lab 11/27/24 17:19 Completed Hemoglobin A1C Stat Lab 11/27/24 17:19 Completed Lipid Panel Stat Lab 11/27/24 17:19 Completed Magnesium Stat Lab 11/27/24 17:19 Completed NT Pro Brain Natriuretic Pep. Stat Lab 11/27/24 17:19 Completed PT INR [Prothrombin Time INR] Stat Lab 11/27/24 17:19 Completed PTT [Activated Partial Thrombo Time] Stat Lab 11/27/24 17:19 Completed T4 (Thyroxine) Stat Lab 11/27/24 17:19 Completed TSH [Thyroid Stimulating Hormone] Stat Lab 11/27/24 17:19 Completed Troponin I Q3H Lab 11/27/24 23:15 Ordered Troponin I Stat Lab 11/27/24 17:19 Completed Urinalysis and Microscopic Stat Lab 11/27/24 17:05 Ordered Medical Decision Narrative: 69-year-old female presents to the emergency department as advanced stroke alert per EMS, differential diagnosis include but not limited to TIA/CVA, acute SDH, traumatic SAH, EtOH intoxication, encephalopathy, metabolic cephalo-, uremic encephalopathy, cardiac arrhythmia, electrolyte disturbance, acute UTI, thyrotoxicosis, pneumonia among others. Discussed patient case with attending physician Dr. Mejia Patient advanced stroke alert per EMS, vitals will obtain basic laboratory studies, EKG, CTA head and neck, CT head, CXR, UDS, ethyl alcohol level, lipid level, magnesium level, proBNP, troponin, coags, TSH and T4, urinalysis, I reviewed the patient's CT head without contrast, CTA head and neck with and without contrast along with the corresponding radiological reports, on noncontrasted scan, no acute intracranial abnormality identified. CTA head shows no large vessel stenosis or occlusion, CTA neck shows moderate right ICA stenosis greater than 50% by NASCET criteria, moderate left ICA stenosis at the bulb heavily calcified greater than 50% by NASCET criteria. Reviewed the patient's chest x-ray along the corresponding radiologic report, no acute findings. T4 within normal limits, troponin within normal limits Will give 40 mEq of p.o. potassium, and will give 2 g of IV magnesium. CBC unremarkable. PTT is minimally elevated at 30.7, INR is minimally elevated at 1.26. Patient is complaining of a headache, I was notified by nursing staff at approximately 6:20 PM, will also attempt p.o. challenge with p.o. 400 mg Motrin. Blood alcohol level is elevated at 299. Examination the patient approximate 8:30 p.m., patient is alert and oriented GCS 15, appears to have clinical sobriety, will discharge patient home, patient did let me know that she currently ambulates with a walker at baseline has been going on for quite some time. Patient was given strict ED return precautions, patient voiced understanding and agreed with the treatment plan/discharge plan. Prescribe the patient 20 mEq p.o. potassium for 1 week, as well as 500 mg magnesium oxide p.o. daily for 1 week due to alcohol induced vomiting and electrolyte disturbances. Patient is neurovascularly/neurologically intact, no stroke noted on CT head and angiogram studies, NIH still remains 0. I was consulted by the RAMONA, and we discussed the complexity of the problems being addressed. I approved the treatment and management plan for this patient's care in the Emergency Department, thus performing a substantive portion of the medical decision making. Dash Mejia MD Critical Care <CORNELL Tate - Last Filed: 11/27/24 20:44> Critical Care Time Critical Care Time: No
[2024-11-27] MEDS: 0.9 % SODIUM CHLORIDE 50 ML VIAL IV (17:13)
[2024-11-27] MEDS: IOPAMIDOL-370 (76%);100ML BOTTLE 75 ML IV (17:13)
[2024-11-27] MEDS: SODIUM CHLORIDE 0.9% 10ML SYR (RAD ONLY) 10 ML IV (17:13)
--- NOTE | 2024-11-27 17:23 | ECG_ITS ---
APPROVED REPORT Exam: Resting ECG HR:94 bpm ECG Measurements Heart Rate 94 AXES MA 169 P 30 QRSd 90 QRS 34 QT 373 T 68 QTc 425 Conclusion Sinus rhythm Nonspecific ST and T wave changes inferiorly without reciprocal change Electronically signed by : MARCY LOW, 12/04/2024 07:37:03
[2024-11-27 17:34] LABS: Eosinophils # 0.1 Kmm3 (0.0-0.4); Hematocrit 32.4 % (37.0-47.0); Hemoglobin 11.4 g/dL (12.2-16.2); Immature Granulocytes # 0.03 10^3uL; Lymphocytes # 1.1 K/mm3 (0.7-4.5); Lymphocytes % 35.7 % (10-50); Mean Corpuscular HGB Conc 35.2 g/dL (31.8-35.4); Mean Corpuscular Hemoglobin 34.2 pg (27.0-31.2); Mean Corpuscular Volume 97.3 fl (81-99); Mean Platelet Volume 9.4 fl (7.4-10.4); Monocytes # 0.2 K/mm3 (0.1-1.0); Monocytes % 5.4 % (1.7-9.3); Neutrophils # 1.6 K/mm3 (1.8-7.8); Neutrophils % 54.9 % (37.0-80.0); Nucleated Red Blood Cells # 0 10^3/uL; Nucleated Red Blood Cells % 0 %; Red Blood Count 3.33 M/mm3 (4.20-5.40); Red Cell Distribution Width 14.8 % (11.5-17.5); Red Cell Distribution Width-SD 53.2 fL; White Blood Count 2.9 K/mm3 (4.8-10.8)
--- OUTSIDE RECORDS SUMMARY | 2024-11-27 17:34 | XMS_ITS | Clinical Summary ---
Author Organization Healthcare Address [address] [place] [address] Care Team Providers Care Lead Php Developer Name Role Phone Adrián Triana MD Primary Care Provider [phone] Social History Tobacco Use Types Packs/Day Years Used Date Smoking Tobacco: Every Day Alcohol Use Standard Drinks/Week Comments Yes 0 (1 standard drink = 0.6 oz pur e alcohol) Comments Unknown Sex and Gender Information Value Date Recorded Sex Assigned at Not on file Legal Sex Female 6:35 PM EDT Gender Identity Not on file Sexual Orientation Not on file Last Filed Vital Signs Vital Sign Reading Time Taken Comments Blood Pressure - - Pulse - - Temperature - - Respiratory Rate - - Oxygen Saturation - - Inhaled Oxygen Concentration - - Weight 78.9 kg (174 lb 0.2 oz) 04/01/2014 1:59 P M EDT Height 167.6 cm (5' 6 ) 04/01/2014 1:59 PM EDT Body Mass Index 28.09 04/01/2014 1:59 PM EDT Plan of Treatment Not on file Care Teams Lead Php Developer Relationship Specialty Start Date End Date Adrián Triana MD [address] [place] [address] [place] [id number] PCP - General 10/24/20
[2024-11-27 17:42] LABS: Albumin Level 3.6 g/dl (3.5-5.0); Chloride 100 mmol/L (98-107); INR 1.26 (0.9-1.1); Prothrombin Time 13.7 seconds (10.1-12.5); Sodium 135 mmol/L (136-145)
[2024-11-27 17:45] LABS: Alanine Aminotransferase 30 U/L (12-78); Albumin/Globulin Ratio 1.1 (1.1-1.8); Alkaline Phosphatase 309 U/L (38-126); Aspartate Amino Transferase 85 U/L (14-36); Blood Urea Nitrogen 10 mg/dl (7-17); Calcium 9.4 mg/dl (8.4-10.2); Carbon Dioxide 22 mmol/L (22.0-30.0); Cholesterol 177 mg/dl (140-200); Creatinine Clearance Estimated 62 mL/min (50-200); Estimated Glomerular Filt Rate 83 ml/min (>60); GFR (African American) 101 ML/MIN (>60); Globulin 3.4 g/dL (1.3-3.2); Glucose 120 mg/dl (74-100); Triglycerides 236 mg/dl (30-150); VLDL Cholesterol 47 mg/dL (0-40)
[2024-11-27 17:46] LABS: Chol/HDL Ratio 4.3 (1-3.5); HDL Cholesterol 41 mg/dl (40-60)
[2024-11-27 17:55] LABS: NT Pro Brain Natriuretic Pep. 367 pg/mL (0-125)
[2024-11-27 17:56] LABS: Direct LDL Cholesterol 95.88 mg/dL (100-129)
[2024-11-27 18:01] LABS: Troponin I < 0.01 ng/ml (0.00-0.034)
[2024-11-27 18:02] LABS: T4 (Thyroxine) 8.5 ug/dl (5.53-11.0)
[2024-11-27 18:10] LABS: Platelet Count 62 K/mm3 (142-424)
[2024-11-27 18:11] LABS: Ethyl Alcohol 299 mg/dl (0-10)
[2024-11-27] MEDS: POTASSIUM CHLORIDE 20MEQ TAB 40 MEQ PO (18:15)
[2024-11-27] MEDS: MAGNESIUM SULFATE IN WATER 2 GM/50 ML PIGGYBACK IV (18:15)
[2024-11-27 18:16] LABS: Thyroid Stimulating Hormone 8.04 uIU/mL (0.465-4.68)
[2024-11-27] MEDS: IBUPROFEN 400 MG TABLET PO (18:31)
[2024-11-27 19:19] LABS: Hemoglobin A1C 4.5 % (4.0-6.0)
--- NOTE | 2024-11-27 19:50 | PC.NURSE ---
calls to request update on patient, phone number given for when pt is DC'd. Pt reports that he is not able to drive at night. [phone].
--- NOTE | 2024-11-27 21:10 | PC.NURSE ---
PCS paper filled out and faxed to [facility] for pending transfer home per EMS.
--- NOTE | 2024-11-27 22:07 | PC.NURSE ---
[facility] states patient does not meet medical necessity for transport home
--- NOTE | 2024-11-27 22:08 | PC.NURSE ---
spoke with Judson from EMS told him the situation with this pt. 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
--- NOTE | 2024-11-27 22:30 | PC.NURSE ---
Transportation contacted and TRN spoke with Salome at cab service. She states that she will be able to transport patient home to address listed on file in [place], [place]. Spoke with XIOMARA Ellis who approved patient transfer amongst other logistics. Salome arrives to [facility] at 2300 to which myself and charge nurse Nathalia assisted patient via wheelchair into vehicle. Salome called back to ER to state that patient requested lift assist from local fire department. Local fire department called per JUSTEN Almonte tech to which FD complied and was en route to patient house. also notified and aware of patient return per TYRONE Vega. 0000 TRN called Salome, cable engineer outside plant, back to check in on patient safely arriving to home, and safety of new car driver when new car driver states that patient stated to her during car ride to drive slow because patient' didn't want to go back home to him. Patient stated that all does at home is yells and screams at her. Salome states that living conditions are deplorable. also called FD back while patient was in route to house and cancelled lift assist stating that it was not needed. Salome states that patient was a full assist and it took her and another friend that came with her all they had to get patient into house. only assisted with providing a chair on front porch according to new car driver. Salome states multiple concerns over patient welfare and living conditions. Informed that I would inform my DON of events, and states appreciation of all care provided.
--- NOTE | 2024-11-27 22:31 | PC.NURSE ---
Attempts at obtaining transportation back to residence. House sup aware of need for transportation for patient with multiple conversations with EMS. reports that he is unable to get patient tonight due to not being able to see after dark.
--- NOTE | 2024-11-27 23:03 | PC.NURSE ---
notified to meet van driver with walker at the driveway He verbalized an understanding
--- NOTE | 2024-11-27 23:20 | PC.NURSE ---
Spoke with dispatch to make them aware that pt will need a lift assist into her house by fire department.
== END 2024-11-27 23:10 | disposition home or self-care (01) ==
PROVIDERS: Physician Assistant; Emergency Provider Emergency Medicine; PCP Physician Assistant
DX: F10.121 Alcohol abuse with intoxication delirium (principal); E87.6 Hypokalemia; E83.42 Hypomagnesemia; R74.01 Elevation of levels of liver transaminase levels; F17.210 Nicotine dependence, cigarettes, uncomplicated; Y90.8 Blood alcohol level of 240 mg/100 ml or more
CPT/HCPCS: 70450; 70496; 70498; 71045; 80053; 80061; 80320; 83036; 83735; 83880; 84436; 84443; 84484; 85025; 85610; 85730; 93005; 96365; 99285; J3475; Q9967

== ENCOUNTER 2025-01-03 10:00 | Inpatient (IN) | payer MEDICARE, SELFPAY ==
[2025-01-03] VITALS (18 sets, daily range): BP systolic 103–153; BP diastolic 61–84; PULSE 67–85; RESP 16–19; TEMP 36.5–37.2; O2SAT 96–100; BMI 20.1; BMI 19.3
--- NOTE | 2025-01-03 10:01 | HMH.EDGENADL ---
Discharge Plan Disposition Patient Disposition: Admitted Condition: Fair Clinical Impressions Clinical Impression: Hypomagnesemia, Failure to thrive, Protein calorie malnutrition Discharge ED Provider: Arnulfo Strong General Adult HPI General Chief complaint: Fall Stated complaint: Fall Time Seen by Provider: 01/03/25 10:01 History of Present Illness HPI narrative: Patient is a 69-year-old female with a history of GERD. She presents today from home due to concerns for fall. She reports that she fell 2 days ago. She reports that it was a mechanical fall. She has chronic weakness in her bilateral lower extremities, and reports that her legs just gave out from under her. She has not been able to get up for 2 days and has been crawling along the floor with her arms. She reports that she told her that she wanted help, but he said that she was okay and did not need any help. She denies any head strike. Denies blood thinners. Denies any numbness tingling weakness. Does report some back pain, right shoulder pain, bilateral knee pain and right hip pain. Denies any chest pain shortness of breath vision changes numbness weakness tingling. Related Data Previous Rx's ?Medication ?Instructions ?Recorded pantoprazole 40 mg tablet,delayed 40 mg PO HS 30 days #30 tabs 09/14/24 release Allergies Allergy/AdvReac Type Severity Reaction Status Date / Time No Known Allergies Allergy Verified 07/26/24 16:27 [facility] Disclaimer: The information contained in this section may have been updated after the patient was seen, as this information can be updated by other users. Medical History (Updated 01/03/25 @ 15:43 by Arnulfo Strong MD) Alcohol intoxication Encounter for social work intervention Thrombocytopenia Hypokalemia Ground-level fall Surgical History History of tubal ligation Social History Smoking Status: Current every day smoker alcohol intake: current substance use type: denies use current occupational status: unemployed Travel in the last 8 weeks?: None Have you lived/traveled outside US in past 30 days?: No Contact w/someone who lives/traveled outside US past 30 days?: No Exposure to someone with infectious disease in past 14 days?: No Do you have a fever (greater than 100.4 F or 38 C)?: No Have you tested positive for COVID-19?: No Exposed to someone with COVID-19 in past 14 days?: No Do you have a sore throat?: No Do you have a cough?: No Do you have any weakness?: No Do you have any diarrhea?: No Are you experiencing any unusual bleeding?: No Do you have any muscle aches/pain?: No Do you have any abdominal pain?: No Are you experiencing loss of taste or smell?: No Other Medical History Have you received the Flu Vaccine for this season: No Have you received the Pneumonia Vaccine: No ROS Obtained: Yes All systems reviewed & no additional complaints except as documented Physical Exam General General appearance: alert, in no apparent distress and cachectic Head Head exam: atraumatic and normocephalic Eye Eye exam: Present PERRL and EOMI ENT ENT exam: Present normal oropharynx Neck Neck exam: Present full ROM and trachea midline Chest Chest inspection: Present symmetric chest wall rise and other (ecchymosis over R posteriro chest without crepitus) Respiratory Respiratory exam: Present normal lung sounds bilaterally; Absent stridor Cardiovascular Cardiovascular exam: Present regular rate and normal rhythm Abdominal Exam Abdominal exam: Present soft; Absent distention or tenderness Extremities Exam Extremities exam: Present full ROM, tenderness and other (brusiing over bilateral knees, bilateral elbows, r shoulder, r hip ttp, bilateral knee ttp, full ROM everywhere, no deformities) Neurological Exam Neurological exam: Present alert, oriented X3 and CN II-XII intact; Absent motor sensory deficit Psychiatric Psychiatric exam: Present normal mood Skin Skin exam: Present warm and dry Medical Decision Making Medical Records Screening: Per USPSTF and CDC recommendations, given the prevalence of disease in our region, it is our hospital?s policy to screen for HIV and viral Hepatitis for all patients aged 18 and over and those with ongoing risk factors. Christopher Inquiry Pt receiving controlled substance: No Vital Signs: 01/03/25 10:19 01/03/25 10:26 01/03/25 10:29 Temperature 98.9 F Temperature Source Oral Pulse Rate 85 Pulse Rate [Left] 74 Respiratory Rate 19 Blood Pressure 142/84 H Blood Pressure [Right Arm] 144/82 H Blood Pressure Mean Blood Pressure Mean [Right Arm] 102 Blood Pressure Source Blood Pressure Source [Right Arm] Automatic Cuff Blood Pressure Position 02 Sat by Pulse Oximetry 100 99 100 Oxygen Delivery Method Room Air Room Air 01/03/25 10:30 01/03/25 10:45 01/03/25 10:54 Temperature Temperature Source Pulse Rate 76 81 71 Pulse Rate [Left] Respiratory Rate 17 19 Blood Pressure 144/71 H Blood Pressure [Right Arm] Blood Pressure Mean Blood Pressure Mean [Right Arm] Blood Pressure Source Blood Pressure Source [Right Arm] Blood Pressure Position 02 Sat by Pulse Oximetry 100 98 99 Oxygen Delivery Method Room Air Room Air 01/03/25 11:00 01/03/25 12:15 01/03/25 12:19 Temperature Temperature Source Pulse Rate 69 72 71 Pulse Rate [Left] Respiratory Rate 19 17 Blood Pressure 143/78 H 153/81 H Blood Pressure [Right Arm] Blood Pressure Mean 105 Blood Pressure Mean [Right Arm] Blood Pressure Source Blood Pressure Source [Right Arm] Blood Pressure Position 02 Sat by Pulse Oximetry 98 100 100 Oxygen Delivery Method Room Air Room Air 01/03/25 12:30 01/03/25 13:00 01/03/25 13:13 Temperature Temperature Source Pulse Rate 74 69 75 Pulse Rate [Left] Respiratory Rate 17 Blood Pressure 137/75 121/64 129/71 Blood Pressure [Right Arm] Blood Pressure Mean 112 95 97 Blood Pressure Mean [Right Arm] Blood Pressure Source Blood Pressure Source [Right Arm] Blood Pressure Position 02 Sat by Pulse Oximetry 99 100 99 Oxygen Delivery Method Room Air Room Air Room Air 01/03/25 13:30 01/03/25 14:00 01/03/25 14:16 Temperature 98.8 F Temperature Source Oral Pulse Rate 67 71 79 Pulse Rate [Left] Respiratory Rate 19 19 Blood Pressure 133/71 128/74 133/74 Blood Pressure [Right Arm] Blood Pressure Mean 104 Blood Pressure Mean [Right Arm] Blood Pressure Source Automatic Cuff Blood Pressure Source [Right Arm] Blood Pressure Position Supine 02 Sat by Pulse Oximetry 98 98 Oxygen Delivery Method Room Air Room Air Lab Data Lab Results 01/03/25 10:20: WBC 4.2 L, RBC 3.35 L, Hgb 11.7 L, Hct 33.9 L, MCV 101.2 H, MCH 34.9 H, MCHC 34.5, RDW 14.5, Plt Count 154, MPV 9.0, Neut % (Auto) 73.2, Lymph % (Auto) 15.2, [place] % (Auto) 9.5 H, Eos % (Auto) 0.9, Baso % (Auto) 0.5, Neut # (Auto) 3.1, Lymph # (Auto) 0.6 L, [place] # (Auto) 0.4, Eos # (Auto) 0.0, Baso # (Auto) 0.0, PT 14.6 H, INR 1.34 H, Sodium 130 L, Potassium 3.5, Chloride 95 L, Carbon Dioxide 24, Anion Gap 14.5, BUN 17, Creatinine 0.70, Estimated Creat Clear 49, Estimated GFR 83, Est GFR ( Amer) 101, Glucose 97, Lactate 1.3, Calcium 10.4 H, Phosphorus 3.2, Magnesium 0.6 L, Total Bilirubin 3.2 H, AST 142 H, ALT 70, Alkaline Phosphatase 380 H, Total Creatine Kinase 46, Troponin I < 0.01, Total Protein 8.5 H, Albumin 4.6, Globulin 3.9 H, Albumin/Globulin Ratio 1.2, Lipase 320 H, TSH 11.30 H, Free T4 1.51, Plasma/Serum Alcohol < 10, HIV Ag/Ab Combo Qual Negative 01/03/25 12:19: Urine Color Yellow, Urine Appearance Clear, Urine pH 6.5, Ur Specific Grant <= 1.005, Urine Protein Trace, Urine Glucose (UA) Negative, Urine Ketones 1+, Urine Blood Negative, Urine Nitrate Negative, Urine Bilirubin 2+ A, Urine Urobilinogen 4.0, Ur Leukocyte Esterase Negative, Urine RBC 5-10, Urine WBC None, Ur Squamous Epith Cells Occasional, Urine Bacteria Trace, Urine Opiates Screen Negative, Urine Methadone Screen Negative, Ur Barbituates Screen Negative, Ur Phencyclidine Scrn Negative, Ur Amphetamines Screen Negative, U Benzodiazepines Scrn Negative, Urine Cocaine Screen Negative, U Marijuana (THC) Screen Negative 01/03/25 13:15: Troponin I < 0.01 01/03/25 10:20 01/03/25 10:20 Orders (Tests/Meds): ED MEDICATIONS Generic Name Dose Route Start Last Admin Trade Name Freq PRN Reason Stop Dose Admin Acetaminophen 650 mg 01/03/25 13:47 Acetaminophen 325mg Tab PO 02/02/25 13:46 Q4HP PRN Fever or Mild Pain (1-3) Lactated Ringer's 1,000 mls @ 100 mls/hr 01/03/25 15:30 Lactated Ringer's 1000 Ml Bag IV 02/02/25 15:29 .Q10H HARRY Magnesium Sulfate 2 gm in 50 mls @ 50 mls/hr 01/03/25 15:28 Magnesium Sulfate 2gm/50ml Premix IV 01/03/25 16:27 ONCE ONE Ibuprofen 400 mg 01/03/25 13:47 Ibuprofen 400 Mg Tablet PO 02/02/25 13:46 Q6HP PRN Mild Pain (1-3) Pantoprazole Sodium 40 mg 01/03/25 21:00 Pantoprazole 40mg Tablet PO 02/02/25 20:59 HS HARRY Sodium Chloride 8 ml 01/03/25 10:49 Sodium Chloride 0.9% 10ml Vial IV 02/02/25 10:48 NEEDED PRN dilute pepcid Sodium Chloride 10 ml 01/03/25 15:28 Sodium Chloride 0.9% 10ml Flush Syringe IV 02/02/25 15:27 NEEDED PRN Maintain IV Site Discontinued Medications Generic Name Dose Route Start Last Admin Trade Name Freq PRN Reason Stop Dose Admin Acetaminophen 500 mg 01/03/25 10:16 01/03/25 10:37 Acetaminophen 500mg Tab PO 01/03/25 10:17 500 mg ONCE ONE Administration Enoxaparin Sodium 40 mg 01/03/25 13:47 Enoxaparin 40mg/0.4ml Syringe SUBCUT 01/03/25 13:48 ONCE ONE Famotidine 20 mg 01/03/25 10:49 01/03/25 10:52 Famotidine 20mg/2ml Vial IV 01/03/25 10:50 20 mg ONCE ONE Administration Folic Acid 1 mg 01/03/25 10:27 01/03/25 10:36 Folic Acid 1mg Tablet PO 01/03/25 10:28 1 mg ONCE ONE Administration Lactated Ringer's 1,000 mls @ 999 mls/hr 01/03/25 10:16 01/03/25 10:37 Lactated Ringer's 1000 Ml Bag IV 01/03/25 11:16 999 mls/hr .Q1H1M ONE Administration Magnesium Sulfate 2 gm in 50 mls @ 50 mls/hr 01/03/25 11:15 01/03/25 12:56 Magnesium Sulfate 2gm/50ml Premix IV 01/03/25 13:14 50 mls/hr Q1H HARRY Administration Iopamidol 80 ml 01/03/25 11:36 01/03/25 11:37 Iopamidol-370 (76%);100ml Bottle IV 01/03/25 11:37 80 ml ONCE ONE Administration Sodium Chloride 40 ml 01/03/25 11:36 01/03/25 11:37 0.9 % Sodium Chloride 50 Ml Vial IV 01/03/25 11:37 40 ml ONCE ONE Administration Sodium Chloride 10 ml 01/03/25 11:36 01/03/25 11:37 Sodium Chloride 0.9% 10ml Syr (Rad Only) IV 01/03/25 11:37 10 ml ONCE ONE Administration Thiamine HCl 100 mg 01/03/25 10:26 01/03/25 10:37 Thiamine 100mg Tablet PO 01/03/25 10:27 100 mg ONCE ONE Administration ORDERS Category Date Time Status CT angio abd/pel - TRAUMA Stat Cat Scan 01/03/25 10:[address] angio chest - dissection Stat Cat Scan 01/03/25 10:[address] bony pelvis Stat Cat Scan 01/03/25 10:[address] cervical spine wo con Stat Cat Scan 01/03/25 10:[address] head/brain wo con Stat Cat Scan 01/03/25 10:[address] lumbar spine wo con Stat Cat Scan 01/03/25 10:[address] thoracic spine wo con Stat Cat Scan 01/03/25 10:18 Completed XR ankle RT min 3V Stat Exams 01/03/25 10:16 Completed XR chest portable Stat Exams 01/03/25 10:16 Completed XR elbow LT 2V Stat Exams 01/03/25 10:16 Completed XR elbow RT 2V Stat Exams 01/03/25 10:16 Completed XR femur RT 2V Stat Exams 01/03/25 10:16 Completed XR foot RT min 3V Stat Exams 01/03/25 10:16 Completed XR hip RT 2-3V w/pelvis Stat Exams 01/03/25 10:16 Completed XR humerus RT Stat Exams 01/03/25 10:16 Completed XR knee LT 3V Stat Exams 01/03/25 10:16 Completed XR knee RT 3V Stat Exams 01/03/25 10:16 Completed XR shoulder RT min 2V Stat Exams 01/03/25 10:16 Completed XR tibia fibula RT 2V Stat Exams 01/03/25 10:16 Completed CBC w/Auto Diff [Complete Blood Count Auto Diff] Stat Lab 01/03/25 10:20 Completed CK [Creatine Kinase] Stat Lab 01/03/25 10:20 Completed CMP [Comprehensive Metabolic Panel] Stat Lab 01/03/25 10:20 Completed Drug Screen,Urine Stat Lab 01/03/25 12:19 Completed Ethyl Alcohol Stat Lab 01/03/25 10:20 Completed Free T4 (Free Thyroxine) Stat Lab 01/03/25 10:20 Completed HIV Combo Stat Lab 01/03/25 10:20 Completed Lactic Acid Stat Lab 01/03/25 10:20 Completed Lipase Stat Lab 01/03/25 10:20 Completed MAG [Magnesium] Stat Lab 01/03/25 10:20 Completed PHOS [Phosphorous] Stat Lab 01/03/25 10:20 Completed PT INR [Prothrombin Time INR] Stat Lab 01/03/25 10:20 Completed Prealbumin Stat Lab 01/03/25 10:20 Received TSH [Thyroid Stimulating Hormone] Stat Lab 01/03/25 10:20 Completed Trop I [Troponin I] Stat Lab 01/03/25 10:20 Completed Troponin I Q3H Lab 01/03/25 13:15 Completed Troponin I Q3H Lab 01/03/25 16:30 Ordered Urinalysis (cathed specimen) Stat Lab 01/03/25 12:19 Completed ECG Data Tracing #1: I reviewed this ECG and interpreted as documented below: Independently interpreted by myself demonstrate normal sinus rhythm with no acute ischemic ST changes. Some artifact in the lateral precordial leads, but globally, no acute ischemia or concerning findings. Intervals within normal limits. Medical Decision Narrative: In summary, this 69-year-old female presents to the emergency department today with found down. On initial evaluation patient is afebrile, hemodynamically stable and in no acute distress. On exam, she is alert and oriented and GCS 15. She is cachectic. Appears severely malnourished. Has bruising over her right chest, tenderness over right shoulder right hip exquisitely, and some more mild tenderness over the bilateral knees and elbows. Unsafe living conditions at home, ultimately will need to be placed, but will screen for traumatic injuries with full trauma scans and x-rays of areas of bony tenderness to rule out fracture. Hematologic labs including CK to screen for rhabdo. I have low suspicion for ACS, but will screen with troponins.. Broad hematologic lab workup to follow. Concern for refeeding syndrome. Notably, she does drink alcohol, reports her last drink was 4 days ago. Reports that she drinks a half a glass of vodka a day. She is not exhibiting any signs or symptoms of withdrawal right now, but will place on CIWA protocol. Hypomagnesemia 0.6, critical, repleted. Full trauma scans and x-rays independently interpreted by myself demonstrate no acute traumatic injury and confirmed by radiologist final read. Ultimately, given patient's unsafe disposition in addition to concern for refeeding syndrome and electrolyte abnormalities, felt reasonable to consult hospitalist for admission Dr. Villalpando graciously agrees to admit the patient to their service for further workup or definitive management to be transferred to hemodynamically stable condition. Critical Care Critical Care Time Critical Care Time: No
--- NOTE | 2025-01-03 10:02 | ECG_ITS ---
APPROVED REPORT Exam: Resting ECG HR:74 bpm ECG Measurements Heart Rate 74 AXES SD 148 P 34 QRSd 93 QRS 50 QT 399 T 57 QTc 426 Conclusion SINUS RHYTHM LOW QRS VOLTAGE IN PRECORDIAL LEADS [QRS DEFLECTION < 1.0 mV IN CHEST LEADS] BORDERLINE ECG UNCONFIRMED REPORT Electronically signed by : Arnulfo Strong, 01/03/2025 15:51:48
--- NOTE | 2025-01-03 10:04 | PC.NURSE ---
FSBS is 123. Rn Notified
--- OUTSIDE RECORDS SUMMARY | 2025-01-03 10:15 | XMS_ITS | Clinical Summary ---
Author Organization Healthcare Address [address] [place] [address] Care Team Providers Care Athletic Events Scorer Name Role Phone Adrián Triana MD Primary Care Provider [phone] Social History Tobacco Use Types Packs/Day Years [...] of Treatment Not on file Care Teams Athletic Events Scorer Relationship Specialty Start Date End Date Adrián Triana MD [address] [place] [address] [place] [id number] PCP - General 10/24/20
--- NOTE | 2025-01-03 10:16 | XR_ITS ---
FINAL REPORT CLINICAL HISTORY: trauma, fall pain FINDINGS: RIGHT HIP Three views were obtained. There is no fracture or dislocation. The joint spaces appear normal. No soft tissue abnormality is identified. IMPRESSION: No acute process. Reviewed, Interpreted and Dictated by Beatriz Davis MD Transcribed by Sammie Zamora Authenticated and [facility]
--- NOTE | 2025-01-03 10:16 | XR_ITS ---
FINAL REPORT CLINICAL HISTORY: trauma FINDINGS: LEFT ELBOW Three views were obtained. There is no fracture or dislocation. The joint spaces appear normal. No soft tissue abnormality is identified. IMPRESSION: No acute process. Reviewed, Interpreted and Dictated by Beatriz Davis MD Transcribed by Sammie Zamora Authenticated and [facility]
--- NOTE | 2025-01-03 10:16 | XR_ITS ---
FINAL REPORT CLINICAL HISTORY: trauma fall , pain FINDINGS: No acute pulmonary opacity is present. There is no evidence of effusion or pneumothorax. Mediastinum is unremarkable. Heart size is normal. IMPRESSION: No acute abnormality. Reviewed, Interpreted and Dictated by Beatriz Davis MD Transcribed by Sammie Zamora Authenticated and [facility]
--- NOTE | 2025-01-03 10:16 | XR_ITS ---
FINAL REPORT CLINICAL HISTORY: trauma, fall , pain FINDINGS: LEFT KNEE Three views were obtained. There is no fracture or dislocation. The joint spaces appear normal. No soft tissue abnormality is identified. IMPRESSION: No acute process. Reviewed, Interpreted and Dictated by Beatriz Davis MD Transcribed by Sammie Zamora Authenticated and [facility]
--- NOTE | 2025-01-03 10:16 | XR_ITS ---
FINAL REPORT CLINICAL HISTORY: trauma FINDINGS: RIGHT SHOULDER Three views were obtained. There is no fracture or dislocation. The joint spaces appear normal. No soft tissue abnormality is identified. IMPRESSION: No acute process. Reviewed, Interpreted and Dictated by Beatriz Davis MD Transcribed by Sammie Zamora Authenticated and [facility] [place] [place]
--- NOTE | 2025-01-03 10:16 | XR_ITS ---
FINAL REPORT CLINICAL HISTORY: trauma fall , pain FINDINGS: RIGHT HUMERUS Two views were obtained. There is no fracture or dislocation. The joint spaces appear normal. No soft tissue abnormality is identified. IMPRESSION: No acute process. Reviewed, Interpreted and Dictated by Beatriz Davis MD Transcribed by Sammie Zamora Authenticated and [facility]
--- NOTE | 2025-01-03 10:16 | XR_ITS ---
FINAL REPORT CLINICAL HISTORY: trauma fall , pain FINDINGS: RIGHT KNEE Three views were obtained. There is no fracture or dislocation. The joint spaces appear normal. No soft tissue abnormality is identified. IMPRESSION: No acute process. Reviewed, Interpreted and Dictated by Beatriz Davis MD Transcribed by Sammie Zamora Authenticated and [facility]
--- NOTE | 2025-01-03 10:16 | XR_ITS ---
FINAL REPORT CLINICAL HISTORY: trauma FINDINGS: RIGHT FEMUR Two views were obtained. There is no fracture or dislocation. The joint spaces appear normal. No soft tissue abnormality is identified. IMPRESSION: No acute process. Reviewed, Interpreted and Dictated by Beatriz Davis MD Transcribed by Sammie Zamora Authenticated and [facility]
--- NOTE | 2025-01-03 10:16 | XR_ITS ---
FINAL REPORT CLINICAL HISTORY: trauma fall , pain FINDINGS: RIGHT ANKLE Three views were obtained. There is no fracture or dislocation. The joint spaces appear normal. No soft tissue abnormality is identified. IMPRESSION: No acute process. Reviewed, Interpreted and Dictated by Beatriz Davis MD Transcribed by Sammie Zamora Authenticated and [facility]
--- NOTE | 2025-01-03 10:16 | XR_ITS ---
FINAL REPORT CLINICAL HISTORY: trauma, fall , pain FINDINGS: RIGHT ELBOW Three views were obtained. There is no fracture or dislocation. The joint spaces appear normal. No soft tissue abnormality is identified. IMPRESSION: No acute process. Reviewed, Interpreted and Dictated by Beatriz Davis MD Transcribed by Sammie Zamora Authenticated and [facility]
--- NOTE | 2025-01-03 10:16 | XR_ITS ---
FINAL REPORT CLINICAL HISTORY: trauma fall , pain FINDINGS: RIGHT TIBIA/FIBULA Two views were obtained. There is no fracture or dislocation. The joint spaces appear normal. No soft tissue abnormality is identified. IMPRESSION: No acute process. Reviewed, Interpreted and Dictated by Beatriz Davis MD Transcribed by Sammie Zamora Authenticated and [facility]
--- NOTE | 2025-01-03 10:16 | XR_ITS ---
FINAL REPORT CLINICAL HISTORY: trauma fall , pain FINDINGS: RIGHT FOOT Three views were obtained. There is no fracture or dislocation. There is subluxation of the fifth metatarsal phalangeal joint, likely chronic. Mild diffuse degenerative changes are identified. No soft tissue abnormality is identified. IMPRESSION: No acute process. Reviewed, Interpreted and Dictated by Beatriz Davis MD Transcribed by Sammie Zamora Authenticated and [facility]
--- NOTE | 2025-01-03 10:18 | CT_ITS ---
FINAL REPORT TECHNIQUE: Thin section axial CT with sagittal reconstruction without contrast This study was performed with techniques to keep radiation doses as low as reasonably achievable, (ALARA). Individualized dose reduction techniques using automated exposure control or adjustment of mA and/or kV according to the patient''s size were employed. CLINICAL HISTORY: found down, polytrauma COMPARISON: None FINDINGS: No fracture is seen. Alignment is normal. Severe degenerative disc disease C3 through C7. IMPRESSION: No acute fracture or malalignment Reviewed, Interpreted and Dictated by Beatriz Davis MD Transcribed by Hafsa Gunderson Authenticated and [facility]
--- NOTE | 2025-01-03 10:18 | CT_ITS ---
FINAL REPORT TECHNIQUE: Thin section axial CT with sagittal and coronal reconstructions are performed of the lumbar spine. This study was performed with techniques to keep radiation doses as low as reasonably achievable, (ALARA). Individualized dose reduction techniques using automated exposure control or adjustment of mA and/or kV according to the patient's size were employed. CLINICAL HISTORY: Found down, polytrauma COMPARISON: None FINDINGS: CT LUMBAR SPINE No fracture is present. There is mild levoscoliosis. There are diffuse degenerative changes, most pronounced at the L5-S1 disc level. IMPRESSION: No acute bony abnormality. Reviewed, Interpreted and Dictated by Beatriz Davis MD Transcribed by Gayatri Varma Authenticated and [facility]
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
[2025-01-03 10:36] LABS: Hematocrit 33.9 % (37.0-47.0); Hemoglobin 11.7 g/dL (12.2-16.2); Immature Granulocytes % 0.7 %; Mean Corpuscular HGB Conc 34.5 g/dL (31.8-35.4); Mean Corpuscular Hemoglobin 34.9 pg (27.0-31.2); Mean Corpuscular Volume 101.2 fl (81-99); Nucleated Red Blood Cells % 0 %; Platelet Count 154 K/mm3 (142-424); Red Blood Count 3.35 M/mm3 (4.20-5.40); Red Cell Distribution Width-SD 53.3 fL; White Blood Count 4.2 K/mm3 (4.8-10.8)
[2025-01-03] MEDS: FOLIC ACID 1MG TABLET 1 MG PO (10:36)
[2025-01-03] MEDS: LACTATED RINGERS 1000ML 1,000 ML 999 ML IV (10:37)
[2025-01-03] MEDS: THIAMINE 100MG TABLET 100 MG PO (10:37)
[2025-01-03] MEDS: ACETAMINOPHEN 500MG TAB 500 MG PO (10:37)
[2025-01-03 10:44] LABS: Albumin Level 4.6 g/dl (3.5-5.0); Chloride 95 mmol/L (98-107); Sodium 130 mmol/L (136-145)
[2025-01-03 10:45] LABS: INR 1.34 (0.9-1.1); Potassium 3.5 mmoL/L (3.5-5.1); Prothrombin Time 14.6 seconds (10.1-12.5)
[2025-01-03 10:47] LABS: Alanine Aminotransferase 70 U/L (12-78); Albumin/Globulin Ratio 1.2 (1.1-1.8); Alkaline Phosphatase 380 U/L (38-126); Anion Gap 14.5 mEq/L (5-15); Aspartate Amino Transferase 142 U/L (14-36); Bilirubin,Total 3.2 mg/dl (0.2-1.3); Blood Urea Nitrogen 17 mg/dl (7-17); Carbon Dioxide 24 mmol/L (22.0-30.0); Creatine Kinase 46 U/L (30-135); Creatinine Clearance Estimated 49 mL/min (50-200); Creatinine,Serum 0.70 mg/dl (0.52-1.04); Estimated Glomerular Filt Rate 83 ml/min (>60); GFR (African American) 101 ML/MIN (>60); Globulin 3.9 g/dL (1.3-3.2); Phosphorous 3.2 mg/dl (2.5-4.5); Total Protein,Serum 8.5 g/dl (6.3-8.2)
[2025-01-03 10:48] LABS: Calcium 10.4 mg/dl (8.4-10.2); Glucose 97 mg/dl (74-100); Lipase 320 U/L (23-300)
[2025-01-03] MEDS: FAMOTIDINE 20MG/2ML VIAL 20 MG IV (10:52)
[2025-01-03 11:02] LABS: Troponin I < 0.01 ng/ml (0.00-0.034)
[2025-01-03 11:04] LABS: Magnesium 0.6 mg/dl (1.6-2.3)
[2025-01-03 11:18] LABS: Thyroid Stimulating Hormone 11.30 uIU/mL (0.465-4.68)
[2025-01-03] MEDS: IOPAMIDOL-370 (76%);100ML BOTTLE 80 ML IV (11:37)
[2025-01-03] MEDS: SODIUM CHLORIDE 0.9% 10ML SYR (RAD ONLY) 10 ML IV (11:37)
[2025-01-03] MEDS: 0.9 % SODIUM CHLORIDE 50 ML VIAL 40 ML IV (11:37)
--- NOTE | 2025-01-03 12:09 | PC.NURSE ---
Patient back to room from radiology now.
[2025-01-03] MEDS: MAGNESIUM SULFATE IN WATER 2 GM/50 ML PIGGYBACK IV ×3 (12:12→16:03)
--- NOTE | 2025-01-03 12:19 | PC.NURSE ---
patient in room, no concerns at this time.
--- NOTE | 2025-01-03 12:20 | PC.NURSE ---
patient in room, no concerns at this time.
[2025-01-03 12:30] LABS: Microscopic,Cath URINE MICROSCOPIC (MICROSCOPIC)
[2025-01-03 12:36] LABS: Appearance,Urine/Cath CLEAR (Clear); Blood, Urine/Cath Negative (Negative); Color,Urine/Cath YELLOW (Yellow); Glucose,Urine/Cath (UA) Negative (Negative); Ketones,Urine/Cath 1+ (Negative); Leukocyte Esterase,Cath Negative (Negative); Nitrate,Cath Negative (Negative); PH,Urine/Cath 6.5 (5.0-8.5); Protein,Urine/Cath TRACE (Negative); Specific Gravity, Urine/Cath <= 1.005 (1.005-1.030); Urobilinogen,Cath 4.0 EU/dl (0.2)
[2025-01-03 12:47] LABS: Free T4 (Free Thyroxine) 1.51 ng/dl (0.78-2.19)
[2025-01-03 12:49] LABS: Amphetamine/Metha Screen,Urine Negative ng/ml (<1000); Barbiturates Screen,Urine Negative ng/ml (<200)
[2025-01-03 12:50] LABS: Benzodiazepines Screen,Urine Negative ng/ml (<200)
[2025-01-03 12:51] LABS: Bilirubin,Cath 2+ (Negative)
[2025-01-03 12:52] LABS: Methadone Screen,Urine Negative ng/ml (<300); Opiate Screen,Urine Negative ng/ml (<300)
[2025-01-03 12:53] LABS: Phencyclidine Screen,Urine Negative ng/ml (<25)
[2025-01-03 12:59] LABS: Amorphous Sediment,Ur/Cath Trace /lpf; Bacteria,Urine/Cath TRACE /lpf; Squamous Epithelial Ur./Cath Occasional #/hpf (0-5)
--- NOTE | 2025-01-03 13:34 | PC.NURSE ---
called house for admission at this time.
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
[2025-01-03 13:56] LABS: Troponin I < 0.01 ng/ml (0.00-0.034)
--- NOTE | 2025-01-03 14:09 | PC.NURSE ---
Patient report called to TYRONE Smith.
--- NOTE | 2025-01-03 14:09 | PC.NURSE ---
Report has been call to Med Surg. Pt is coming to room 204. vital are stable Pt is recieving Mag IV at the moment. Awaiting for Pt arricval to the Floor.FRANCISCO BECKER RN
[2025-01-03] MEDS: LACTATED RINGERS 1000ML 1,000 ML 100 ML IV (16:03)
--- NOTE | 2025-01-03 16:43 | PC.WOUNDNOTE ---
BRUISE NOTED TO TOP OF RIGHT SHOULDER BRUISES NOTED TO UPPER BACK SCATTERED BRUISING TO BLE ABRASION NOTED TO LEFT ELBOW OPEN AREA TO TOP OF PATIENT'S BOTTOM.
--- OUTSIDE RECORDS SUMMARY | 2025-01-03 16:44 | XMS_ITS | Clinical Summary ---
Author Organization Healthcare Address [address] [place] [address] Care Team Providers Care Quality Control Associate Name Role Phone Adrián Triana MD Primary Care Provider [phone] Social History Tobacco Use Types Packs/Day Years [...] of Treatment Not on file Care Teams Quality Control Associate Relationship Specialty Start Date End Date Adrián Triana MD [address] [place] [id number] PCP - General 10/24/20
[2025-01-03 17:30] LABS: Troponin I < 0.01 ng/ml (0.00-0.034)
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
[2025-01-03] MEDS: PANTOPRAZOLE 40MG TABLET 40 MG PO (21:00)
[2025-01-04] MEDS: LACTATED RINGERS 1000ML 1,000 ML 100 ML IV ×2 (02:52→13:01)
[2025-01-04 04:00] VITALS: BP 99/57; PULSE 72; RESP 16; TEMP 36.7; O2SAT 97; BMI 20.1
[2025-01-04 06:42] LABS: Hematocrit 26.6 % (37.0-47.0); Immature Granulocytes % 0.4 %; Mean Corpuscular HGB Conc 33.5 g/dL (31.8-35.4); Mean Corpuscular Hemoglobin 34.2 pg (27.0-31.2); Mean Corpuscular Volume 102.3 fl (81-99); Nucleated Red Blood Cells % 0 %; Platelet Count 118 K/mm3 (142-424); Red Blood Count 2.60 M/mm3 (4.20-5.40); Red Cell Distribution Width-SD 54.5 fL; White Blood Count 2.6 K/mm3 (4.8-10.8)
[2025-01-04 07:02] LABS: Alanine Aminotransferase 42 U/L (12-78); Albumin Level 2.6 g/dl (3.5-5.0); Albumin/Globulin Ratio 0.8 (1.1-1.8); Alkaline Phosphatase 296 U/L (38-126); Anion Gap 9.1 mEq/L (5-15); Aspartate Amino Transferase 63 U/L (14-36); Bilirubin,Total 1.3 mg/dl (0.2-1.3); Blood Urea Nitrogen 8 mg/dl (7-17); Calcium 9.3 mg/dl (8.4-10.2); Carbon Dioxide 24 mmol/L (22.0-30.0); Chloride 101 mmol/L (98-107); Cholesterol 136 mg/dl (140-200); Creatinine Clearance Estimated 49 mL/min (50-200); Creatinine,Serum 0.80 mg/dl (0.52-1.04); Estimated Glomerular Filt Rate 72 ml/min (>60); GFR (African American) 87 ML/MIN (>60); Globulin 3.1 g/dL (1.3-3.2); Glucose 118 mg/dl (74-100); HDL Cholesterol 24 mg/dl (40-60); Magnesium 1.8 mg/dl (1.6-2.3); Potassium 3.1 mmoL/L (3.5-5.1); Sodium 131 mmol/L (136-145); Total Protein,Serum 5.7 g/dl (6.3-8.2); Triglycerides 152 mg/dl (30-150)
[2025-01-04 07:43] LABS: Hemoglobin 8.9 g/dL (12.2-16.2)
[2025-01-04 08:00] VITALS: BP 102/60; PULSE 72; RESP 16; TEMP 36.7; O2SAT 98
[2025-01-04] MEDS: IBUPROFEN 400 MG TABLET PO (08:49)
[2025-01-04] MEDS: POTASSIUM CHLORIDE 20MEQ TAB 40 MEQ PO (08:49)
[2025-01-04 09:21] VITALS: BMI 20.1
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
--- NOTE | 2025-01-04 11:39 | HMH.PTEV ---
Physical Therapy Evaluation Rehab PT IP Evaluation Start: 01/03/25 13:47 Freq: ONCE Status: Active Protocol: Document 01/04/25 11:35 SHAKA (Rec: 01/04/25 11:39 SHAKA [id number]) Subjective/History History History 69-year-old female who presented to the emergency room today due to a fall at home. She reports to the ER physician that she fell 2 days ago, that her legs gave out due to her chronic weakness. She states that she has been on the floor for 2 days, unable to get up. When discussing this with the patient she told me that she actually fell on Tuesday, she was able to scoot herself on the floor to her bedroom; where she laid on the floor since then, too weak to get up. She does live with her but she states that he would not help her and stated she did not need help. She said she did not eat during this time on the floor, but her did bring her milk occasionally. She denies physical abuse from her . She does express wanting to go to an inpatient care facility or assisted living. She denies hitting her head, or serious injury. She does not take blood thinners, denies unilateral numbness or tingling, denies abdominal pain, chest pain, or shortness of breath. She does report pain in her back, right shoulder, knees, right hip. She attributes the pain to falling but also states she also has chronic pain. She does have a primary medical history of alcohol use disorder and GERD. She denies drinking the day of her fall or since that time. She states she drinks about a small glass of vodka daily, sometimes every other day. CIWA's has been 0. Pt reports she lives with her , but he doesn't help me with anything, no HERRERA the home, and she is generally independent with RW for all mobility. Subjective Subjective Pt was adm to the hospital several months ago with a very similar presentation. She agrees to mobility assessment without c/o this am other than general weakness. [facility] How much help from another person do you currently need... Turning from your None back to your side while in a flat bed without using bedrails? Moving from lying on None back to sitting on the side of a flat bed without using bedrails? Moving to and from a None bed to a chair ( including a wheelchair)? Standing up from a None chair using your arms? (e.g., wheelchair, bedside chair) Walking in hospital None room? Climbing 3-5 steps A little with a railing? Mobility Score 23 Mobility Level [facility] Mobility 7 Walk 25 feet or more Mobility Calculator Rehab PT IP Eval Objective Appearance Patient Behavior Appropriate Patient Orientation Person,Place,Time Difficulty following none instructions Speech Pattern Clear Ambulation Patient Able to Yes Ambulate Ambulation Observation IP General Gait Shuffling Step Pattern Observation Ambulation Distance 30 (feet) Ambulation Assistive Rolling Walker Device Ambulation Ability Supervision/Stand by Balance Ability to Arise Able, uses arms to help Sitting Balance Steady, safe Standing Balance Steady, wide stance Dynamic Sitting Good Balance Ability Dynamic Standing Fair Balance Ability Transfers Bed Transfer Ability Supervision/Stand by Chair Transfer Supervision/Stand by Ability Sit to Stand Bed Supervision/Stand by Transfer Ability Sit to Stand Chair Supervision/Stand by Transfer Ability Rehab PT IP prob,goals,plan Problems Date of Evaluation: 01/04/25 Discharge Plan PT Discharge Plan Pt is currently appropriate to return home once medically stable for d/c. No current skilled acute therapy needs. Home health therapy would be beneficial to help patient reduce the instances of falls. Eval Complexity Eval Charge Codes 31111 - High Complexity PHYSICIAN CERTIFICATION: I certify the specified therapy services for Julia Jaime are required, authorized, and reviewed every 30 days.
--- NOTE | 2025-01-04 11:39 | SW/DCPLANNER ---
Discussed living situation with patient. She states that her is not abusive, but will not help her when needed. We discussed assisted living facilities and ICFs. Patient states she cannot afford either and is not eligible for Medicaid. We discussed home health services and perhaps going to senior citizens during the day, both which she refused. We discussed homeless/women's shelters and she refused those as well. Reviewed the community resource list with patient. She is agreeable to meals on wheels. Therapy states patient is at baseline.
[2025-01-04 12:12] LABS: Prealbumin 24 mg/dL (10-36)
--- NOTE | 2025-01-04 13:40 | P.DS_ITS ---
General Admission date:: 01/03/25 Discharge date: 01/04/25 HPI HPI HPI: Ms. Jaime is a 69-year-old female who presented to the emergency room today due to a fall at home. She reports to the ER physician that she fell 2 days ago, that her legs gave out due to her chronic weakness. She states that she has been on the floor for 2 days, unable to get up. When discussing this with the patient she told me that she actually fell on Tuesday, she was able to scoot herself on the floor to her bedroom; where she laid on the floor since then, too weak to get up. She does live with her but she states that he would not help her and stated she did not need help. She said she did not eat during this time on the floor, but her did bring her milk occasionally. She denies physical abuse from her . She does express wanting to go to an inpatient care facility or assisted living. She denies hitting her head, or serious injury. She does not take blood thinners, denies unilateral numbness or tingling, denies abdominal pain, chest pain, or shortness of breath. She does report pain in her back, right shoulder, knees, right hip. She attributes the pain to falling but also states she also has chronic pain. She does have a primary medical history of alcohol use disorder and GERD. She denies drinking the day of her fall or since that time. She states she drinks about a small glass of vodka daily, sometimes every other day. CIWA's has been 0. Hospital Course Hospital Course Hospital Course: Ms. Jaime is a 69-year-old female who arrived to the emergency department yesterday after falling on Tuesday and being unable to get up x 3 days. She states that she has had worsening generalized weakness and was unable to get up after falling. Multiple scans in the ER were all negative for injury. Patient does have scattered bruising bilateral lower and upper extremities, back, chest. She also has abrasions on her elbows and coccyx. Patient states that she did not eat or drink while on the floor except for an occasional glass of milk that her would bring her. She does live with her , but states he would not help her get off the floor. She is interested in a assisted living facility. She does have a medical history of GERD and alcohol use disorder. She states she has not drank since Tuesday and she has been drinking less due to her epigastric pain. Lab work in the ED was significant for hypomagnesemia, mild anemia, hyponatremia, hypothyroidism. The ER physician consulted hospital medicine for admission for failure to thrive and generalized weakness, I accepted the patient. Care as follows: #Failure to thrive #Generalized weakness #Severe protein calorie malnutrition ?Patient states she feels like she is not eating and drinking like she should. She does appear hypovolemic. Patient received IV hydration during admission. She also was able to tolerate p.o. diet without any issues. Case management discussed home health, women shelters, rehab options with the patient-patient refused. Patient offered home health services, patient also refused. Did discuss the option of Meals on Wheels, patient is agreeable. ? Patient does not qualify for inpatient or acute rehab or long-term services. She is not able to afford [id number] cost. ? PT/OT consulted for further evaluation of patient's failure to thrive/generalized weakness. PT/OT states patient is at baseline function, ambulates well with walker. ?Labs remained stable during admission. WBC 2.6, patient has longstanding history with iron deficient anemia. Patient hemoglobin today 8.9 likely in the setting of IV hydration. #Hypomagnesia #Hyponatremia ?Patient mildly hyponatremic sodium 130, low magnesium 0.6. Repeat chemistry today sodium 131, magnesium 1.8. Patient's potassium 3.1, replaced orally per protocol. #Hypothyroidism ?Patient TSH 11.3, free T4 1.51. Synthroid 75 mcg ordered at discharge. #Alcohol use disorder ? Patient states she drinks a cup of vodka daily, but does not had a drink since Tuesday. ? CIWA protocol ordered, current CIWA's remain 0. Serum alcohol less than 10. ? Peers support discussed alcohol use disorder with patient, she does not feel that she has a problem and told peers what she has not drink in multiple weeks. Total time spent on discharge 37 minutes in counseling, documentation, chart review, and direct care with patient. Exam Data for Last 24 hours Vital signs and Labs for Last 24 Hours: Temp Pulse Resp BP Pulse Ox O2 Del Method 98.0 F 72 16 102/60 L 98 Room Air 01/04/25 08:00 01/04/25 08:00 01/04/25 08:00 01/04/25 08:00 01/04/25 08:00 01/04/25 09:00 Laboratory Results - last 24 hr 01/03/25 10:20: Prealbumin 01/03/25 13:15: Troponin I < 0.01 01/03/25 16:30: Troponin I < 0.01 01/04/25 06:10: WBC 2.6 L D, RBC 2.60 L, Hgb 8.9 L D, Hct 26.6 L, MCV 102.3 H, MCH 34.2 H, MCHC 33.5, RDW 14.6, Plt Count 118 L, MPV 9.6, Neut % (Auto) 57.4, Lymph % (Auto) 29.3, [place] % (Auto) 10.9 H, Eos % (Auto) 1.2, Baso % (Auto) 0.8, Neut # (Auto) 1.5 L, Lymph # (Auto) 0.8, [place] # (Auto) 0.3, Eos # (Auto) 0.0, Baso # (Auto) 0.0, Sodium 131 L, Potassium 3.1 L, Chloride 101, Carbon Dioxide 24, Anion Gap 9.1, BUN 8 D, Creatinine 0.80, Estimated Creat Clear 49, Estimated GFR 72, Est GFR ( Amer) 87, Glucose 118 H D, Calcium 9.3, Magnesium 1.8 D, Total Bilirubin 1.3, AST 63 H D, ALT 42 D, Alkaline Phosphatase 296 H, Total Protein 5.7 L D, Albumin 2.6 L D, Globulin 3.1, Albumin/Globulin Ratio 0.8 L, Triglycerides 152 H, Cholesterol 136 L, LDL Cholesterol Direct 78.47 L, VLDL Cholesterol 30, HDL Cholesterol 24 L, Cholesterol/HDL Ratio 5.7 H I & O for Last 24 hours: Intake & Output 01/01/25 01/02/25 01/03/25 01/04/25 23:59 23:59 23:59 23:59 Intake Total 1373 / 1373 Output Total 375 / 375 Balance 998 / 998 Weight 54.431 kg 56.926 kg Results Data Completed and Pending Labs on day of discharge: Labs from last 24 hours 01/04/25 01/03/25 01/03/25 06:10 16:30 13:15 WBC 2.6 L D RBC 2.60 L Hgb 8.9 L D Hct 26.6 L MCV 102.3 H MCH 34.2 H MCHC 33.5 RDW 14.6 Plt Count 118 L MPV 9.6 Neut % (Auto) 57.4 Lymph % (Auto) 29.3 [place] % (Auto) 10.9 H Eos % (Auto) 1.2 Baso % (Auto) 0.8 Neut # (Auto) 1.5 L Lymph # (Auto) 0.8 [place] # (Auto) 0.3 Eos # (Auto) 0.0 Baso # (Auto) 0.0 Sodium 131 L Potassium 3.1 L Chloride 101 Carbon Dioxide 24 Anion Gap 9.1 BUN 8 D Creatinine 0.80 Estimated Creat Clear 49 Estimated GFR 72 Est GFR ( Amer) 87 Glucose 118 H D Calcium 9.3 Magnesium 1.8 D Total Bilirubin 1.3 AST 63 H D ALT 42 D Alkaline Phosphatase 296 H Troponin I < 0.01 < 0.01 Total Protein 5.7 L D Albumin 2.6 L D Globulin 3.1 Albumin/Globulin Ratio 0.8 L Prealbumin Triglycerides 152 H Cholesterol 136 L LDL Cholesterol Direct 78.47 L VLDL Cholesterol 30 HDL Cholesterol 24 L Cholesterol/HDL Ratio 5.7 H 01/03/25 10:20 WBC RBC Hgb Hct MCV MCH MCHC RDW Plt Count MPV Neut % (Auto) Lymph % (Auto) [place] % (Auto) Eos % (Auto) Baso % (Auto) Neut # (Auto) Lymph # (Auto) [place] # (Auto) Eos # (Auto) Baso # (Auto) Sodium Potassium Chloride Carbon Dioxide Anion Gap BUN Creatinine Estimated Creat Clear Estimated GFR Est GFR ( Amer) Glucose Calcium Magnesium Total Bilirubin AST ALT Alkaline Phosphatase Troponin I Total Protein Albumin Globulin Albumin/Globulin Ratio Prealbumin 24 Triglycerides Cholesterol LDL Cholesterol Direct VLDL Cholesterol HDL Cholesterol Cholesterol/HDL Ratio DS: Diagnosis Discharge Diagnosis (1) Failure to thrive: Status: Acute (2) Dehydration: Status: Acute Code(s): E86.0 - Dehydration (3) Generalized weakness: Status: Acute Code(s): R53.1 - Weakness (4) Severe protein-calorie malnutrition: Status: Acute Code(s): E43 - Unspecified severe protein-calorie malnutrition (5) Hypomagnesemia: Status: Acute Code(s): E83.42 - Hypomagnesemia (6) Hyponatremia: Status: Acute Code(s): E87.1 - Hypo-osmolality and hyponatremia (7) Hypothyroidism: Status: Acute Code(s): E03.9 - Hypothyroidism, unspecified (8) Alcohol use disorder: Status: Acute Code(s): F10.90 - Alcohol use, unspecified, uncomplicated Meds Home Medications and Allergies Home Medications ?Medication ?Instructions ?Recorded ?Confirmed ?Type pantoprazole 40 mg tablet,delayed 40 mg PO HS 30 days #30 tabs 09/14/24 01/03/25 Rx release levothyroxine 75 mcg tablet 75 mcg PO DAILY #30 tabs 0 01/04/25 Rx (Synthroid) New Prescriptions to Start Prescriptions: levothyroxine [Synthroid] Tricia Edwards Allergies Allergy/AdvReac Type Severity Reaction Status Date / Time No Known Allergies Allergy Verified 07/26/24 16:27 Discharge Plan Disposition Patient Disposition: Home, Self-Care Condition: Fair Follow up Plan Follow up with: Tramaine Rothman DO [Staff Physician, Family Practice] - 01/11/25 1:30 pm Prescriptions/Medication Reconciliation: New levothyroxine [Synthroid] 75 mcg tablet 75 mcg PO DAILY Qty: 30 0RF Continued pantoprazole 40 mg Tablet,Delayed Release (Dr/Ec) 40 mg PO HS 30 Days Qty: 30 0RF Problem Reconciliation Problems Reviewed?: Yes Patient Discharge Instructions ACTIVITY: Continue current activity DIET: continue same diet Patient Instructions: Alcohol and Stress: There are Safer Ways to [place], Hypothyroidism Print Language: Albanian Providers Primary Care Provider: Provider,Referral Admit Provider: Arline Villalpando Attending Provider: Arline Villalpando
--- NOTE | 2025-01-04 13:53 | SW/DCPLANNER ---
Addendum entered by Yusra Reagan 01/04/25 15:00: phoned Adrián and stated that the air conditioner in his car doesnt work and asked if we could get the [facility]. I phoned Norma with the [facility] and she is going to take the patient home. Bradley Clarke Addendum entered by Yusra Reagan 01/04/25 14:41: Adrián called me and stated that the called and he is coming to get the patient. I called the [facility] and cancelled. Bradley Clarke Original Note: Phone the [facility] and scheduled a ride home for patient. Norma with [facility] stated that it could be within the next 1.5 or 2 hours before they are able to take her home. I phoned the patient's nurse and let Adrián know that i got the patient a ride due to us not being able to get ahold of the patient's . I stressed to Adrián that if the called back and he is able to take the patient home for Adrián to call the [facility] to cancel the trip home for the patient. Bradley Clarke
[2025-01-04] MEDS: FAMOTIDINE 20MG TABLET 20 MG PO (14:53)
--- NOTE | 2025-01-04 18:37 | PEERSUPPORT ---
Peer Support Note Patient Information Patient Information: DOS: 01/04/2025 ? Pt denies any inpatient treatment for alcohol use disorder saying she is not able to walk. Ps provided information on treatment available for future. ? Pt says she drinks because it is available at her house, that her buys in bulk. She only drinks to sleep and sometimes to take the feeling of being hungry away. ? Ps explores her food access and mobility in her house for to get food, go to bathroom, shower, etc. Pt stated -Not even sure there is food-? orders online has delivered to house from [employer]. Cooks for himself. -She does not try to go to kitchen because she is too weak to and feared of falling. -Washes with a wash cloth -Wears assurance diapers- changes 2-3 times per day -Has a walker does not use it, but helpful when she does use it ? Ps and pt discussed Plan of action: -Establish Primary Care Dr.Matthew Rothman- Appointment; 01/11/2025 @ 1:30 pm [facility] option for transportation Stay in contact/ Contact list created -Daily Self-care- -Take medications as prescribed -Refrain from alcohol use -Positive self-talk for empowerment ?
--- NOTE | 2025-01-08 10:22 | SW/DCPLANNER ---
Phoned patient x2. Phone was busy with no answer. Colton AGUILAR Documentation Coordinator
== END 2025-01-04 16:01 | disposition home or self-care (01) | DRG 640 ==
LOC: ER 10:32 → 2ND 13:43
PROVIDERS: Admitting Provider Internal Medicine; Emergency Provider Emergency Medicine; Visit Provider Internal Medicine
DX: R62.7 Adult failure to thrive (principal); E43 Unspecified severe protein-calorie malnutrition; E87.1 Hypo-osmolality and hyponatremia; R53.1 Weakness; Z68.20 Body mass index [BMI] 20.0-20.9, adult; E86.0 Dehydration; E83.42 Hypomagnesemia; E03.9 Hypothyroidism, unspecified; F10.90 Alcohol use, unspecified, uncomplicated; K21.9 Gastro-esophageal reflux disease without esophagitis; D50.9 Iron deficiency anemia, unspecified; Y90.0 Blood alcohol level of less than 20 mg/100 ml; F17.200 Nicotine dependence, unspecified, uncomplicated; W19.XXXA Unspecified fall, initial encounter; S40.022A Contusion of left upper arm, initial encounter; S40.021A Contusion of right upper arm, initial encounter; S80.12XA Contusion of left lower leg, initial encounter; S80.11XA Contusion of right lower leg, initial encounter; S30.0XXA Contusion of lower back and pelvis, initial encounter; S20.219A Contusion of unspecified front wall of thorax, initial encounter; S50.312A Abrasion of left elbow, initial encounter; S50.311A Abrasion of right elbow, initial encounter; S30.810A Abrasion of lower back and pelvis, initial encounter; Y92.009 Unspecified place in unspecified non-institutional (private) residence as the place of occurrence of the external cause; Z79.899 Other long term (current) drug therapy
CPT/HCPCS: 36415; 70450; 71045; 71275; 72125; 72128; 72131; 72192; 73030; 73060; 73070; 73502; 73552; 73562; 73590; 73610; 73630; 74174; 80053; 80061; 80307; 80320; 81001; 82550; 83605; 83690; 83735; 84100; 84134; 84439; 84443; 84484; 85025; 85610; 87389; 93005; 97163; 97166; J1650; J3475; J7120; Q9967

== ENCOUNTER 2025-03-31 07:11 | Emergency (ER) | payer MEDICARE, SELFPAY ==
[2025-03-31] VITALS (16 sets, daily range): BP systolic 105–174; BP diastolic 72–113; PULSE 100–123; RESP 15–26; TEMP 35.7–36.4; O2SAT 98–100; BMI 23.1
[2025-03-31] MEDS: LACTATED RINGERS 1000ML 1,000 ML 999 ML IV (07:03)
[2025-03-31] MEDS: ETOMIDATE 40MG/20ML VIAL 30 MG IV (07:08)
[2025-03-31] MEDS: SUCCINYLCHOLINE 20MG/ML 10 ML MDV 150 MG IV (07:08)
--- NOTE | 2025-03-31 07:12 | CT_ITS ---
PROCEDURE INFORMATION: Exam: CT Head Without Contrast Exam date and time: 03/31/2025 7:49 AM Age: 70 years old Clinical indication: Injury or trauma; Additional info: Found down, seizure, AMS TECHNIQUE: Imaging protocol: Computed tomography of the head without contrast. Radiation optimization: All CT scans at this facility use at least one of these dose optimization techniques: automated exposure control; mA and/or kV adjustment per patient size (includes targeted exams where dose is matched to clinical indication); or iterative reconstruction. COMPARISON: CT HEAD/BRAIN WO CON 01/03/2025 11:17 AM FINDINGS: Brain: Chronic microvascular ischemic disease without acute intraparenchymal hemorrhage and no obvious acute ischemic stroke. No intra-or extra-axial fluid collection, no supra-or infratentorial mass, no mass effect or midline shift. Cerebral ventricles: Mildly dilated ventricles, sulci and basal cisterns without evidence of hydrocephalus. Paranasal sinuses: Mild chronic mucoperiosteal thickening in the visualized paranasal sinuses. Mastoid air cells: No mastoid effusion. Bones: Visualized skull bones are grossly normal. Soft tissues: NA IMPRESSION: 1. Chronic microvascular ischemic disease and generalized atrophy without acute intracranial abnormality. 2. No evidence of acute hemorrhage, mass lesion or obvious acute ischemic infarction.
--- NOTE | 2025-03-31 07:12 | CT_ITS ---
PROCEDURE INFORMATION: Exam: CTA Neck With Contrast Exam date and time: 03/31/2025 7:51 AM Age: 70 years old Clinical indication: Injury or trauma; Additional info: Found down, seizure, AMS TECHNIQUE: Imaging protocol: Computed tomographic angiography of the neck with contrast. Exam focused on the cervical segments of the vasculature. 3D rendering (Not supervised by radiologist): MIP and/or 3D reconstructed images were created by the technologist. Radiation optimization: All CT scans at this facility use at least one of these dose optimization techniques: automated exposure control; mA and/or kV adjustment per patient size (includes targeted exams where dose is matched to clinical indication); or iterative reconstruction. Contrast material: ISOVUE 370; Contrast volume: 80 ml; Contrast route: INTRAVENOUS (IV); COMPARISON: CT ANGIO NECK 11/27/2024 5:08 PM FINDINGS: THORACIC VESSELS: Atherosclerotic disease of the visualized aortic arch without aortic aneurysm or dissection. Calcific plaque resulting in moderate narrowing at the origin of the subclavian arteries. No other significant narrowing at the origin of the neck vessels. . COMMON CAROTID ARTERIES: Common carotid arteries are without acute flow limiting stenosis. . CERVICAL INTERNAL CAROTID ARTERIES: Moderate to severe calcific plaque at the carotid bifurcation extending to the carotid bulb resulting in 60-70% narrowing of the RIGHT carotid bulb and less than 50% narrowing on the LEFT. Asymmetric fusiform dilatation and tortuosity of the distal RIGHT internal carotid artery proximal to the skull base. No evidence of an aneurysm or a dissection. . VERTEBRAL ARTERIES: Nondominant RIGHT vertebral artery terminating primarily as PICA. Cervical vertebral arteries are without acute flow limiting stenosis. . OTHER STRUCTURES: Chronic degenerative changes in the visualized spine and shoulder joint(s). LEFT apical airspace, ground-glass opacities, septal and peribronchial thickening in the lung apices with distal airway narrowing. Tip of endotracheal tube above the demarcus. Patient is intubated with extensive secretions in the nasopharynx and nasal cavities. Extensive dental caries with root abscess. IMPRESSION: 1. Moderate to severe calcific plaque at the carotid bifurcation extending to the carotid bulb resulting in 60-70% narrowing of the RIGHT carotid bulb and less than 50% narrowing on the LEFT. 2. No acute flow-limiting stenosis, no occlusion, aneurysm or dissection of the vertebral arteries in the neck. 3. Findings suspicious for aspiration pneumonia in the LEFT lung apex. 4. Other findings as described. Recommend correlation with pertinent clinical history and follow-up as indicated. REFERENCES: NASCET CRITERIA. The degree of stenosis in the cervical segment of the internal carotid artery is based on NASCET criteria. Normal is no stenosis. Mild is less than 50% stenosis. Moderate is 50-69% stenosis. Severe is 70% to 99% stenosis. Total occlusion is no detectable patent lumen. PROCEDURE INFORMATION: Exam: CTA Head With Contrast, Arteriography Exam date and time: 03/31/2025 7:51 AM Age: 70 years old Clinical indication: Injury or trauma; Additional info: Found down, seizure, AMS TECHNIQUE: Imaging protocol: Computed tomographic angiography of the head with contrast. Exam focused on the arteries. Radiation optimization: All CT scans at this facility use at least one of these dose optimization techniques: automated exposure control; mA and/or kV adjustment per patient size (includes targeted exams where dose is matched to clinical indication); or iterative reconstruction. COMPARISON: CT HEAD/BRAIN WO CON 03/31/2025 7:49 AM FINDINGS: ANTERIOR CIRCULATION: INTRACRANIAL INTERNAL CAROTID ARTERIES: Mild to moderate chronic predominantly calcific plaque in the mid-distal ICA resulting in chronic narrowing. MIDDLE CEREBRAL ARTERIES: M1 and visualized M2 segments of the MCA are without acute flow limiting stenosis. ANTERIOR CEREBRAL ARTERIES: A1 and visualized A2 segments of the GONZALO are without acute flow limiting stenosis. Anterior communicating artery is unremarkable. . POSTERIOR CIRCULATION: VERTEBRAL ARTERIES: Intracranial vertebral arteries and their visualized branches are without acute flow limiting stenosis. BASILAR ARTERY: The basilar artery and its visualized proximal branches are without acute flow limiting stenosis. POSTERIOR CEREBRAL ARTERIES: P1 and P2 segments of the FILLER BLENDER are without acute flow limiting stenosis. 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 COMMENTS: Recommend followup with MRI if persistent/new/worsening symptoms or symptoms unexplained by the current study.
--- NOTE | 2025-03-31 07:13 | XR_ITS ---
PROCEDURE INFORMATION: Exam: XR Chest Exam date and time: 03/31/2025 7:11 AM Age: 70 years old Clinical indication: Device placement; Ett placement (vent status); Additional info: Found down, seizure, AMS TECHNIQUE: Imaging protocol: Radiologic exam of the chest. Views: 1 view. COMPARISON: CR XR CHEST PORTABLE 01/03/2025 11:42 AM FINDINGS: Tubes, catheters and devices: Tip of ENDOTRACHEAL tube is overlying the tracheal shadow and is superior to the demarcus/tracheal bifurcation by approximately 4.3 cm. Lungs: Prominent lung markings/peribronchial thickening with atelectasis, scarring and patchy airspace opacities in the LEFT upper and RIGHT lower lobes. Decreased lung volumes bilaterally. Pleural spaces: No evidence of pleural effusion or pneumothorax. Heart/Mediastinum: Mild cardiomegaly with mild central pulmonary vascular congestion. Calcification and unfolding of the aortic arch. Bones/joints: Chronic degenerative changes in the visualized spine and shoulder joint(s). IMPRESSION: Findings suspicious for multifocal consolidation/pneumonia.
--- OUTSIDE RECORDS SUMMARY | 2025-03-31 07:16 | XMS_ITS | Clinical Summary ---
Author Organization Healthcare Address [address] [place] [address] Care Team Providers Care Loss Prevention Detective Name Role Phone Adrián Triana MD Primary Care Provider [phone] Social History Tobacco Use Types Packs/Day Years [...] of Treatment Not on file Care Teams Loss Prevention Detective Relationship Specialty Start Date End Date Adrián Triana MD [address] [place] [address] [place] [id number] PCP - General 10/24/20
--- NOTE | 2025-03-31 07:17 | ED_ITS ---
Discharge Plan Disposition Patient Disposition: Xfer Other Prescriptions Prescriptions: No Action pantoprazole 40 mg Tablet,Delayed Release (Dr/Ec) 40 mg PO HS 30 Days Qty: 30 0RF levothyroxine [Synthroid] 75 mcg tablet 75 mcg PO DAILY Qty: 30 0RF Clinical Impressions Clinical Impression: Altered mental status, Generalized seizure, Alcohol withdrawal Instructions Patient Instructions: DI for Seizure (Not Epilepsy/Seizure Disorder), DI for Seizure Disorder in Adults, DI for Seizure Disorder in Child Print Language Print Language: Bengali Discharge ED Provider: Ashu Sinclair General Adult HPI General Chief complaint: Seizure Stated complaint: Fall Time Seen by Provider: 03/31/25 07:12 History of Present Illness HPI narrative: Patient is a 70-year-old female found unresponsive brought in by EMS. Had a GCS of 3 and route and had a witnessed generalized tonic-clonic seizure by EMS that was broken with Versed. This lasted about 1 minute. No history able to be obtained from the patient and the other person with the patient was unable to provide any medical history to EMS as well. EMS states that the house that she was found and was extremely unkempt and dirty and that she was found next to a bottle of vodka. There is a colleague here that knows this patient and knows that she has a history of alcohol use. Glucose and route was normal. Vitals otherwise stable. Patient was breathing spontaneously but was unresponsive. Related Data Previous Rx's ?Medication ?Instructions ?Recorded pantoprazole 40 mg tablet,delayed 40 mg PO HS 30 days #30 tabs 09/14/24 release levothyroxine 75 mcg tablet 75 mcg PO DAILY #30 tabs 0 01/04/25 (Synthroid) Allergies Allergy/AdvReac Type Severity Reaction Status Date / Time No Known Allergies Allergy Verified 07/26/24 16:27 [facility] Disclaimer: The information contained in this section may have been updated after the patient was seen, as this information can be updated by other users. Medical History (Updated 03/31/25 @ 08:13 by Ashu Sinclair MD) Alcohol intoxication Encounter for social work intervention Thrombocytopenia Hypokalemia Ground-level fall Surgical History History of tubal ligation Family History (Updated 01/03/25 @ 15:56 by Poonam Major RN) Other No significant family history Social History Smoking Status: Current every day smoker alcohol intake: current substance use type: denies use current occupational status: unemployed Travel in the last 8 weeks?: None Have you lived/traveled outside [place] in past 30 days?: No Contact w/someone who lives/traveled outside US past 30 days?: No Exposure to someone with infectious disease in past 14 days?: No Do you have a fever (greater than 100.4 F or 38 C)?: No Have you tested positive for COVID-19?: No Exposed to someone with COVID-19 in past 14 days?: No Do you have a sore throat?: No Do you have a cough?: No Do you have any weakness?: No Do you have any diarrhea?: No Are you experiencing any unusual bleeding?: No Do you have any muscle aches/pain?: No Do you have any abdominal pain?: No Are you experiencing loss of taste or smell?: No Other Medical History Have you received the Flu Vaccine for this season: No Have you received the Pneumonia Vaccine: No ROS Obtained: Yes All systems reviewed & no additional complaints except as documented Physical Exam General General appearance: obtunded Eye Eye exam: Present PERRL Respiratory Respiratory exam: Present normal lung sounds bilaterally Cardiovascular Cardiovascular exam: Present regular rate and normal rhythm Neurological Exam Neurological exam: Present alert and oriented X3 Expanded Neurological Exam Coma scale eye opening: None Coma scale motor response: None Coma scale verbal response: None Coma scale total: 3 Medical Decision Making Medical Records Screening: Per USPSTF and CDC recommendations, given the prevalence of disease in our region, it is our hospital?s policy to screen for HIV and viral Hepatitis for all patients aged 18 and over and those with ongoing risk factors. Christopher Inquiry Pt receiving controlled substance: No Vital Signs: 03/31/25 07:05 03/31/25 07:35 Temperature 96.3 F L 96.3 F L Temperature Source Core Pulse Rate 113 H Pulse Rate [Radial] 100 H Respiratory Rate 16 17 Blood Pressure 119/84 Blood Pressure [Right Arm] 174/82 H Blood Pressure Mean [Right Arm] 112 Blood Pressure Source [Right Arm] Automatic Cuff Blood Pressure Position [Right Arm] Supine 02 Sat by Pulse Oximetry 100 100 Oxygen Delivery Method Non-Rebreather Mechanical Ventilation Lab Data Lab results reviewed: Yes I reviewed the patient's lab results. Lab Results 03/31/25 07:15: WBC 7.8, RBC 3.47 L, Hgb 10.6 L, Hct 33.2 L, MCV 95.7, MCH 30.5, MCHC 31.9, RDW 16.0, Plt Count 98 L, MPV 9.6, Neut % (Auto) 68.1, Lymph % (Auto) 25.7, [place] % (Auto) 3.7, Eos % (Auto) 1.3, Baso % (Auto) 0.3, Neut # (Auto) 5.3, Lymph # (Auto) 2.0, [place] # (Auto) 0.3, Eos # (Auto) 0.1, Baso # (Auto) 0.0, PT 13.8 H, INR 1.27 H, APTT 25.2, VBG pH 7.06 L, VBG pCO2 49.0, VBG pO2 93.2 H, VBG HCO3 13.7 L, VBG Total CO2 15.2 L, VBG O2 Saturation 91.9 H, VBG Base Excess - 16.6 L, VBG Lactic Acid 12.3 H, Sodium 132 L, Potassium 3.5, Chloride 98, Carbon Dioxide 15 L, Anion Gap 22.5 H, BUN 14, Creatinine 0.80, Estimated Creat Clear 54, Estimated GFR 71, Est GFR ( Amer) 86, Glucose 337 H, Calcium 8.7, Total Bilirubin 0.9, AST 44 H, ALT 30, Alkaline Phosphatase 143 H, Total Creatine Kinase 53, Troponin I 0.01, Total Protein 6.7, Albumin 3.6, Globulin 3.1, Albumin/Globulin Ratio 1.2, Salicylates < 1.0 L, Acetaminophen < 10 L, Plasma/Serum Alcohol < 10 03/31/25 07:20: Urine Methadone Screen Negative, Ur Barbituates Screen Negative, Ur Phencyclidine Scrn Negative, Ur Amphetamines Screen Negative, U Benzodiazepines Scrn Negative, Urine Cocaine Screen Negative, U Marijuana (THC) Screen Negative 03/31/25 07:15 03/31/25 07:15 Orders (Tests/Meds): ED MEDICATIONS Generic Name Dose Route Start Last Admin Trade Name Freq PRN Reason Stop Dose Admin Lactated Ringer's 1,000 mls @ 999 mls/hr 03/31/25 07:15 Lactated Ringer's 1000 Ml Bag IV 03/31/25 08:15 .Q1H1M HARRY Propofol 100 mls @ 1.89 mls/hr 03/31/25 07:14 Diprivan 10mg/Ml 100ml Bottle IV 04/30/25 07:13 .Q24H HARRY Protocol 5 MCG/KG/MIN Discontinued Medications Generic Name Dose Route Start Last Admin Trade Name Dino PRN Reason Stop Dose Admin Etomidate 30 mg 03/31/25 08:02 Etomidate 40mg/20ml Vial IV 03/31/25 08:03 ONCE ONE Levetiracetam 2,000 mg/ Sodium 120 mls @ 240 mls/hr 03/31/25 07:12 Chloride IV 03/31/25 07:13 ONCE ONE Iopamidol 80 ml 03/31/25 07:53 03/31/25 07:53 Iopamidol-370 (76%);100ml Bottle IV 03/31/25 07:54 80 ml ONCE ONE Administration Midazolam HCl 2 mg 03/31/25 08:02 Midazolam 2mg/2ml Vial IV 03/31/25 08:03 ONCE ONE Sodium Chloride 10 ml 03/31/25 07:53 03/31/25 07:53 Sodium Chloride 0.9% 10ml Syr (Rad Only) IV 03/31/25 07:54 10 ml ONCE ONE Administration Sodium Chloride 50 ml 03/31/25 07:53 03/31/25 07:53 0.9 % Sodium Chloride 50 Ml Vial IV 03/31/25 07:54 50 ml ONCE ONE Administration Succinylcholine Chloride 150 mg 03/31/25 08:01 Succinylcholine 20mg/Ml 10 Ml Mdv IV 03/31/25 08:02 ONCE ONE ORDERS Category Date Time Status CT angio head Stat Cat Scan 03/31/25 07:[address] angio neck Stat Cat Scan 03/31/25 07:[address] head/brain wo con Stat Cat Scan 03/31/25 07:12 Taken CXR --portable [XR chest portable] Stat Exams 03/31/25 07:13 Taken XR chest portable Stat Exams 03/31/25 07:32 Taken Acetaminophen Stat Lab 03/31/25 07:15 Completed Ammonia Stat Lab 03/31/25 07:57 Received CBC w/Auto Diff [Complete Blood Count Auto Diff] Stat Lab 03/31/25 07:15 Completed CK [Creatine Kinase] Stat Lab 03/31/25 07:15 Completed CMP [Comprehensive Metabolic Panel] Stat Lab 03/31/25 07:15 Completed Ethanol [Ethyl Alcohol] Stat Lab 03/31/25 07:15 Completed Lactate Venous Stat Lab 03/31/25 07:12 Ordered PT/PTT Stat Lab 03/31/25 07:15 Completed Salicylate Stat Lab 03/31/25 07:15 Completed Trop I [Troponin I] Stat Lab 03/31/25 07:15 Completed Troponin I Q3H Lab 03/31/25 10:15 Ordered Troponin I Q3H Lab 03/31/25 13:15 Ordered UDS [Drug Screen,Urine] Stat Lab 03/31/25 07:20 Results Sputum Culture & Gram Stain Stat Micro 03/31/25 08:06 Ordered Venous Blood Gas Stat RT 03/31/25 07:15 Completed Medical Decision Narrative: 70-year-old with above history and physical. Differential includes trauma, vascular emergencies such as [place] cerebral aneurysm intracranial hemorrhage stroke etc. Also severe alcohol intoxication remains in the differential as she is a known alcoholic and was found next to a bottle of vodka. Patient was intubated upon arrival primarily for airway protection. Keppra was initiated and patient was started on propofol infusion. No seizures were noted initially in the emergency department. IV fluids also hung vital signs are stable. She is oxygenating well. Prognosis is very guarded. She will need to be transferred to another facility where there is neurology coverage given the seizure presentation. Reassessment 811 CT scans of the patient's head and CTAs of the head and neck performed I personally interpreted shows no obvious intracranial abnormalities. Specifically no evidence of any intracranial hemorrhage. Chest x-ray was performed which I personally interpreted which shows endotracheal tube in appropriate location no dense consolidation. There has been a lot of secretions that been suctioned patient probably aspirated. Patient is mildly hypothermic temperature is 96 but no other signs or symptoms of sepsis. No other signs or symptoms of trauma. Labs otherwise unremarkable she does have some thrombocytopenia and a mildly elevated INR likely associated with undiagnosed liver disease but this is not confirmed. She has been given Keppra and propofol is infusing. She remains sedated with a GCS of 3T. I spoke with Dr. Mckeon at [facility]. He accepted the patient. Working diagnosis is alcohol withdrawal given the fact that she is a known alcoholic and have no alternative explanation and she has an undetectably low alcohol level with generalized tonic-clonic seizure. Procedures Intubation Mallampati Score:: Class I Time out performed: Yes sedative: Etomidate Mg Given: 30 paralytic: Succinylcholine Mg Given: 150 Laryngoscope: fiber optic video scope (mac 3 ) Assist Device Used: fiber optic device ET Tube Size: 7.5 ET Tube Uncuffed: Yes Tube Secured Depth (cm): 22 Tube Secured Location: teeth Tube Placement Confirmation: visualized tube passing through cords, equal breath sounds bilaterally, no breath sounds over epigastrium and confirmation by capnometry Patient Tolerated Procedure: no complications Intubation Complications: none Critical Care Critical Care Time Critical Care Time: Yes Attestation: On 03/31/25, the high probability of a clinically significant, sudden or life threatening deterioration of the following system(s) required my full and direct attention, intervention and personal management. The time I documented below is in addition to time spent performing reported procedures but includes the following listed in this critical care notation. Total Time Total Critical Care Time: 65
[2025-03-31 07:25] LABS: VBG HCO3 13.7 mmol/L (23-30); VBG PCO2 49.0 mmol/L (35-51); VBG PO2 93.2 mmol/L (28-40)
[2025-03-31 07:31] LABS: Lactate Venous 12.3 mmol/L (0.4-2.0); VBG PH 7.06 mmol/L (7.31-7.41)
--- NOTE | 2025-03-31 07:32 | XR_ITS ---
PROCEDURE INFORMATION: Exam: XR Chest Exam date and time: 03/31/2025 7:29 AM Age: 70 years old Clinical indication: Device placement; Ng tube; Additional info: Post tube placement TECHNIQUE: Imaging protocol: Radiologic exam of the chest. Views: 1 view. COMPARISON: CR XR CHEST PORTABLE 03/31/2025 7:11 AM FINDINGS: Tubes, catheters and devices: Tip of ENDOTRACHEAL tube is overlying the tracheal shadow and is superior to the demarcus/tracheal bifurcation by approximately 3.8 cm. Tip of NASOGASTRIC/ENTERIC tube is not visualized and extends beyond the gastroesophageal junction into the upper abdomen. Lungs: Prominent lung markings/peribronchial thickening with atelectasis, scarring and patchy airspace opacities in the LEFT upper and RIGHT lower lobes. Decreased lung volumes bilaterally. Pleural spaces: No evidence of pleural effusion or pneumothorax. Heart/Mediastinum: Mild cardiomegaly with mild central pulmonary vascular congestion. Calcification and unfolding of the aortic arch. Bones/joints: Chronic degenerative changes in the visualized spine and shoulder joint(s). IMPRESSION: Unchanged multifocal consolidation/pneumonia.
[2025-03-31 07:40] LABS: Hematocrit 33.2 % (37.0-47.0); Hemoglobin 10.6 g/dL (12.2-16.2); Immature Granulocytes % 0.9 %; Mean Corpuscular HGB Conc 31.9 g/dL (31.8-35.4); Mean Corpuscular Hemoglobin 30.5 pg (27.0-31.2); Mean Corpuscular Volume 95.7 fl (81-99); Nucleated Red Blood Cells % 0 %; Platelet Count 98 K/mm3 (142-424); Red Blood Count 3.47 M/mm3 (4.20-5.40); Red Cell Distribution Width-SD 54.6 fL; White Blood Count 7.8 K/mm3 (4.8-10.8)
[2025-03-31 07:44] LABS: Albumin Level 3.6 g/dl (3.5-5.0); Chloride 98 mmol/L (98-107); Potassium 3.5 mmoL/L (3.5-5.1); Sodium 132 mmol/L (136-145)
[2025-03-31 07:46] LABS: Activated Partial Thrombo Time 25.2 seconds (22.8-30.6); INR 1.27 (0.9-1.1); Prothrombin Time 13.8 seconds (10.1-12.5)
[2025-03-31 07:47] LABS: Alanine Aminotransferase 30 U/L (12-78); Albumin/Globulin Ratio 1.2 (1.1-1.8); Alkaline Phosphatase 143 U/L (38-126); Anion Gap 22.5 mEq/L (5-15); Aspartate Amino Transferase 44 U/L (14-36); Bilirubin,Total 0.9 mg/dl (0.2-1.3); Blood Urea Nitrogen 14 mg/dl (7-17); Calcium 8.7 mg/dl (8.4-10.2); Carbon Dioxide 15 mmol/L (22.0-30.0); Creatine Kinase 53 U/L (30-135); Creatinine Clearance Estimated 54 mL/min (50-200); Creatinine,Serum 0.80 mg/dl (0.52-1.04); Estimated Glomerular Filt Rate 71 ml/min (>60); GFR (African American) 86 ML/MIN (>60); Globulin 3.1 g/dL (1.3-3.2); Glucose 337 mg/dl (74-100); Total Protein,Serum 6.7 g/dl (6.3-8.2)
[2025-03-31 07:49] LABS: Acetaminophen < 10 ug/ml (10-30); Salicylate < 1.0 mg/dL (2.0-20.0)
[2025-03-31] MEDS: IOPAMIDOL-370 (76%);100ML BOTTLE 80 ML IV (07:53)
[2025-03-31] MEDS: 0.9 % SODIUM CHLORIDE 50 ML VIAL IV (07:53)
[2025-03-31] MEDS: SODIUM CHLORIDE 0.9% 10ML SYR (RAD ONLY) 10 ML IV (07:53)
[2025-03-31 07:55] LABS: Barbiturates Screen,Urine Negative ng/ml (<200)
[2025-03-31] MEDS: MIDAZOLAM 2MG/2ML VIAL 2 MG IV (07:55)
[2025-03-31 07:56] LABS: Benzodiazepines Screen,Urine Negative ng/ml (<200)
[2025-03-31 07:57] LABS: Amphetamine/Metha Screen,Urine Negative ng/ml (<1000)
[2025-03-31 07:58] LABS: Methadone Screen,Urine Negative ng/ml (<300)
--- NOTE | 2025-03-31 07:58 | PC.NURSE ---
Jim Garcia is on the phone with [facility] right now for, Respiratory Failure, Seizure, and History of alcoholism.
[2025-03-31 08:00] LABS: Phencyclidine Screen,Urine Negative ng/ml (<25)
--- NOTE | 2025-03-31 08:00 | PC.NURSE ---
Radiology has been called, and they are powersharing images as well as getting us a disc.
[2025-03-31 08:01] LABS: Troponin I 0.01 ng/ml (0.00-0.034)
--- NOTE | 2025-03-31 08:03 | PC.NURSE ---
[facility] stated they would page Dr Mckeon and call back
[2025-03-31] MEDS: levETIRAcetam 2,000 MG in 0.9 % SODIUM CHLORIDE 100 ML 240 MG IV (08:08)
[2025-03-31 08:16] LABS: Ammonia 81 umol/L (9-30)
[2025-03-31 08:16] LABS: ABG HCO3 17.6 mmhg (22.0-26.0); ABG PCO2 36.3 mmhg (35.0-45.0); ABG PH 7.30 mmol/L (7.35-7.45); ABG PO2 159.4 mmhg (80-100); ABG TCO2 18.7 mmhg (23-27)
[2025-03-31 08:17] LABS: PEEP 5; Source Right Brachial
[2025-03-31 08:19] LABS: Lactate Arterial 6.0 mmol/L (0.4-2.0)
--- NOTE | 2025-03-31 08:20 | PC.NURSE ---
0700 Patient arrival to ER FS [id number] on NRB unresponsive Versed 5mg given CAUSTIC CRESYLATE SHIFT SUPERINTENDENT, seizure CAUSTIC CRESYLATE SHIFT SUPERINTENDENT. 18g placed in RFA CAUSTIC CRESYLATE SHIFT SUPERINTENDENT and 18g in LFA CAUSTIC CRESYLATE SHIFT SUPERINTENDENT. 0708 150 of Succ given 0708 30 of Etom given 0710 2 grams of Keppra given [address] 22 @ teeth bilateral breath sounds 0716 Propofol started at 5mcg 0721 PPropofol increased to 20mcg 0720 [place] placed [address] 55 at the lip 0755 Versed 2mg given in ct 0800 Propofol increased to 30mcg
[2025-03-31 08:24] LABS: Opiate Screen,Urine Negative ng/ml (<300)
--- NOTE | 2025-03-31 08:29 | PC.NURSE ---
Facesheet has been faxed to [facility]
[2025-03-31] MEDS: MIDAZOLAM 5MG/ML 1ML VIAL 5 MG IV (08:42)
--- NOTE | 2025-03-31 08:53 | PC.NURSE ---
Report called to TYRONE Han at [address] ICU.
--- NOTE | 2025-03-31 08:56 | PC.NURSE ---
[facility] notified of transfer.
--- NOTE | 2025-03-31 09:02 | ECG_ITS ---
APPROVED REPORT Exam: Resting ECG HR:108 bpm ECG Measurements Heart Rate 108 AXES VA 155 P 46 QRSd 105 QRS 17 QT 370 T 33 QTc 434 Conclusion SINUS TACHYCARDIA LOW QRS VOLTAGE IN PRECORDIAL LEADS [QRS DEFLECTION < 1.0 mV IN CHEST LEADS] ABNORMAL RHYTHM ECG UNCONFIRMED REPORT Electronically signed by : SORIN ALBARRAN, 04/02/2025 02:52:57
[2025-03-31 11:31] LABS: Reflex Lactic Add Lactic Reflex
== END 2025-03-31 09:27 | disposition other institution (70) ==
PROVIDERS: Emergency Provider Student in an Organized Health Care Education/Training Program; PCP Physician Assistant
DX: F10.131 Alcohol abuse with withdrawal delirium (principal); R56.9 Unspecified convulsions; R74.02 Elevation of levels of lactic acid dehydrogenase [LDH]; D69.6 Thrombocytopenia, unspecified; R41.82 Altered mental status, unspecified; F17.210 Nicotine dependence, cigarettes, uncomplicated
CPT/HCPCS: 31500; 36600; 70450; 70496; 70498; 71045; 80053; 80307; 80320; 80329; 82140; 82550; 82803; 83605; 84484; 85025; 85610; 85730; 87070; 87205; 93005; 96361; 96374; 99285; 99291; J0330; J1953; J2250; J2704; J7120; Q9967

== ENCOUNTER 2025-05-29 15:11 | Inpatient (IN) | payer MEDICARE, SELFPAY ==
--- OUTSIDE RECORDS SUMMARY | 2025-03-31 09:18 | XMS_ITS | Encounter Summary ---
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 hematoma: Small, stable left occipital subdural hematoma on imaging, managed conservatively without neurosurgical intervention. - Acute hypoxemic respiratory failure: Resolved with extubation and transition to room air. - Aspiration pneumonitis: Improved with antibiotics and supportive care. Discharge Plan She was medically stable for discharge to inpatient rehabilitation at [facility] for continued management of dysphagia, cognitive-linguistic deficits, and functional impairments. Outpatient neurology and otolaryngology follow-up were recommended. Discharge Follow Up Recommendations for labs/diagnostics:Neurology in one month Day of Discharge HPI: Patient doing well, Vital Signs: Temp: [97.4 ??F (36.3 ??C)] 97.4 ??F (36.3 ??C) Resp: [16] 16 BP: (155-163)/(80-97) 163/97 Physical Exam: Patient is alert and talkative in no distress at rest, frail, but cooperative Neck is without mass or JVD Heart is Reg wo murmur Lungs are clear wo wheeze or crackle Abd is soft without HSM or mass, not tender or distended MAEW Skin is without rash Neurologic exam in nonfocal Mood is appropriate Pertinent and/or Most Recent Results Results from last 7 days Lab Units 04/06/25 1913 04/06/25 0907 04/03/25 0349 WBC 10*3/mm3 -- 2.94* 2.76* HEMOGLOBIN g/dL -- 10.4* 9.3* HEMATOCRIT % -- 31.4* 28.6* PLATELETS 10*3/mm3 -- 129* 68* SODIUM mmol/L -- 139 138 POTASSIUM mmol/L 4.1 3.2* 3.8 CHLORIDE mmol/L -- 105 106 CO2 mmol/L -- 23.2 22.7 BUN mg/dL -- 7.6* 7.6* CREATININE mg/dL -- 0.73 0.79 GLUCOSE mg/dL -- 116* 114* CALCIUM mg/dL -- 9.3 9.0 Results from last 7 days Lab Units 04/06/25 0907 BILIRUBIN mg/dL 0.7 ALK PHOS U/L 145* ALT (SGPT) U/L 6 AST (SGOT) U/L 20 Brief Urine Lab Results (Last result in the past 365 days) Color Clarity Blood Leuk Est Nitrite Protein CREAT Urine HCG 03/31/25 1133 Yellow Clear Small (1+) Small (1+) Negative 100 mg/dL (2+) No results found for: BLOODCX , URINECX , WOUNDCX , MRSACX , RESPCX , STOOLCX XR Shoulder 2+ View Right Result Date: 04/06/2025 Impression: Impression: No acute fracture or traumatic malalignment. There is a bandlike linear opacity in the mid/lower right lung which may reflect atelectasis or scarring or less likely pneumonia.Correlate with chest x-ray. Electronically Signed: Shakir Trinh MD 04/06/2025 12:46 PM EDT Workstation ID: [id number] CT Head Without Contrast Result Date: 04/01/2025 Impression: Impression: 1.Small residual subdural hematoma is seen overlying the posterior margin of the left occipital region. The hematoma measures up to approximately 2 mm in thickness. The hematoma is stable to mildly decreased when correlated with the prior MRI. There has not been progression since the prior. 2.No additional intracranial hemorrhage is identified. 3.Age-related changes are noted. Electronically Signed: Valdez Ascencio MD 04/01/2025 11:48 AM EDT Workstation ID: [id number] XR Chest 1 View Result Date: 04/01/2025 Impression: Impression: 1.Increased left basilar atelectasis. 2.Mild discoid atelectasis in the right midlung. Electronically Signed: Adrián Puri MD 04/01/2025 7:52 AM EDT Workstation ID: [id number] MRI Brain Without Contrast Result Date: 04/01/2025 Impression: Impression: 1.No acute ischemic change. 2.Small subdural hematoma along the left occipital convexity. 3.Diffuse atrophy and white matter changes compatible sequela of small vessel ischemic disease in this age group. 4.Bilateral mastoid effusions left greater than right. Findings were com municated to the agency service coordinator, Horace at 6:03 a.mElgin at the time of interpretation ElectronicallySigned: Pérez Ardon MD 04/01/2025 6:05 AM EDT Workstation ID: [id number] EEG Result Date: 03/31/2025 Impression: Diffuse cerebral dysfunction of mild-moderate degree, nonspecific but most commonly seen due to toxic/metabolic or hypoxemic cause No ongoing seizures are present This report is transcribed using the [employer] dictation system. XR Abdomen KUB Result Date: 03/31/2025 Impression: Impression: 1.Nasogastric tube tip is within the stomach. 2.Atelectatic changes suggested in the visualized lower lungs. Electronically Signed: Marques Roberto MD 03/31/2025 1:13 PM EDT Workstation ID: [id number] XR Chest 1 View Result Date: 03/31/2025 Impression: Appropriate tube placement. Otherwise no acute cardiopulmonary disease. Electronically Signed: Allen Badillo MD 03/31/2025 11:02 AM EDT Workstation ID: [id number] I have personally reviewed the therapy plans: [x] PT/OT/ ST Therapy Plans Discharge Details Discharge Medications New Medications Instructions Start Date acetaminophen 325 MG tablet Commonly known as: TYLENOL 650 mg, Oral, 3 times daily bisacodyl 5 MG EC tablet Commonly known as: DULCOLAX 5 mg, Oral, Daily PRN bisacodyl 10 MG suppository Commonly known as: DULCOLAX 10 mg, Rectal, Daily PRN enoxaparin sodium 40 MG/0.4ML solution prefilled syringe syringe Commonly known as: LOVENOX 40 mg, Subcutaneous, Every 24 Hours folic acid 1 MG tablet Commonly known as: FOLVITE 1 mg, Oral, Daily HYDROcodone-acetaminophen 5-325 MG per tablet Commonly known as: NORCO 1 tablet, Oral, Every 4 Hours PRN levETIRAcetam 250 MG tablet Commonly known as: KEPPRA 250 mg, Oral, 2 Times Daily multivitamin tablet tablet 1 tablet, Oral, Daily nicotine 21 MG/24HR patch Commonly known as: NICODERM CQ 1 patch, Transdermal, Every 24 Hours Scheduled pantoprazole 40 MG EC tablet Commonly known as: PROTONIX 40 mg, Oral, Every Morning Before Breakfast polyethylene glycol 17 g packet Commonly known as: MIRALAX 17 g, Oral, Daily PRN sennosides-docusate 8.6-50 MG per tablet Commonly known as: PERICOLACE 2 tablets, Oral, 2 Times Daily thiamine 100 MG tablet Commonly known as: VITAMIN B1 100 mg, Oral, Daily Discharge Disposition: Rehab Facility or Unit (DC - External) Discharge Diet: Regular Discharge Activity: As Tolerated Special Instructions: No future appointments. Time Spent on Discharge: 35 minutes Electronically signed by Jagruti Goins MD 04/09/25 09:16 EDT * Salome Arciniega RN - 04/05/2025 11:54 AM EDT Images from the original note were not included. Regine Anguiano (70 y.o. Female) [facility] [phone] Date of 1955 Social Security Number [id number] [place] [address] Taoism Non-Buddhist Marital Status Admission Date 03/31/2025 Admission Type Urgent Admitting Provider Susan Alvarado MD Attending Provider Susan Alvarado MD Department, Room/Bed [facility] 3E, S347/1 Discharge Date Discharge Disposition Discharge Destination Attending Provider: Susan Alvarado MD Allergies: No Known Allergies Isolation: None Infection: None Code Status: CPR Ht: 165.1 cm (65 ) Wt: 64.1 kg (141 lb 5 oz) Admission Cmt: None Principal Problem: Seizure [R56.9] Active Insurance as of 03/31/2025 Primary Coverage Payor Plan Insurance Group Employer/Plan Group MEDICARE MEDICARE A & B Payor Plan Address Payor Plan Phone Number Payor Plan Fax Number Effective Dates [address] 01/11/2022 - None Entered [facility] [id number] Subscriber Name Subscriber Date Member ID REGINE ANGUIANO 1955 [id number] Emergency Contacts Supplier Quality (Rel.) Home Phone Work Phone Mobile Phone Kwasi Anguiano (Spouse) [phone] -- [phone] History & Physical Pk Mckeon MD at 03/31/25 1044 See my H & P filed under Progress Notes. 1636 Current Facility-Administered Medications Medication Dose Route Frequency Provider Last Rate Last Admin acetaminophen (TYLENOL) tablet 650 mg 650 mg Oral Q6H PRN Yusra Hines, DNP, KILN REPAIRER 650 mg at 04/05/25 0424 sennosides-docusate (PERICOLACE) 8.6-50 MG per tablet 2 tablet 2 tablet Oral BID Pk Mckeon MD 2 tablet at 04/05/25 0906 And polyethylene glycol (MIRALAX) packet 17 g 17 g Oral Daily PRN Pk Mckeon MD And bisacodyl (DULCOLAX) EC tablet 5 mg 5 mg Oral Daily PRN Pk Mckeon MD And bisacodyl (DULCOLAX) suppository 10 mg 10 mg Rectal Daily PRN Pk Mckeon MD Calcium Replacement - Follow Nurse / BPA Driven Protocol Not Applicable PRN Pk Mckeon MD chlordiazePOXIDE (LIBRIUM) capsule 10 mg 10 mg Oral Q8H Michael Bolton MD 10 mg at 544 dextrose (D50W) (25 g/50 mL) IV injection 25 g 25 g Intravenous Q15 Min PRN Narda Davila PA-C dextrose (GLUTOSE) oral gel 15 g 15 g Oral Q15 Min PRN Narda Davila PA-C enoxaparin sodium (LOVENOX) syringe 40 mg 40 mg Subcutaneous Q24H Narda Davila PA-C 40 mg at 04/04/25 1200 folic acid (FOLVITE) tablet 1 mg 1 mg Oral Daily Raymond Reed PharmD 1 mg at 04/05/25 09 glucagon (GLUCAGEN) injection 1 mg 1 mg Intramuscular Q15 Min PRN Narda Davila PA-C insulin regular (humuLIN R,novoLIN R) injection 2-7 Units 2-7 Units Subcutaneous Q6H Narda Daivla PA-C levETIRAcetam (KEPPRA) tablet 250 mg 250 mg Oral BID Michael Bolton MD 250 mg at 04/05/25 0906 LORazepam (ATIVAN) tablet 1 mg 1 mg Oral Q1H PRN Raymond Reed, PharmAg Or LORazepam (ATIVAN) injection 1 mg 1 mg Intravenous Q1H PRN Raymond Reed, PharmD 1 mg at 04/05/25 0141 Or LORazepam (ATIVAN) tablet 2 mg 2 mg Oral Q1H PRN Raymond Reed, PharmD Or LORazepam (ATIVAN) injection 2 mg 2 mg Intravenous Q1H PRN Raymond Reed, PharmD Or LORazepam (ATIVAN) injection 2 mg 2 mg Intravenous Q15 Min PRN Raymond Reed, PharmD Or LORazepam (ATIVAN) injection 2 mg 2 mg Intramuscular Q15 Min PRN Raymond Reed, PharmD Magnesium Cardiology Dose Replacement - Follow Nurse / BPA Driven Protocol Not Applicable PRN Pk Mckeon MD multivitamin (THERAGRAN) tablet 1 tablet 1 tablet Oral Daily Michael Bolton MD 1 tablet at 04/05/25 0906 nicotine (NICODERM CQ) 21 MG/24HR patch 1 patch 1 patch Transdermal Q24H Pk Mckeon MD 1 patch at 04/05/25 0905 nitroglycerin (NITROSTAT) SL tablet 0.4 mg 0.4 mg Sublingual Q5 Min PRN Pk Mckeon MD pantoprazole (PROTONIX) EC tablet 40 mg 40 mg Oral QAM AC Perez Miller, RPH 40 mg at 04/05/25 0906 Phosphorus Replacement - Follow Nurse / BPA Driven Protocol Not Applicable PRN Pk Mckeon MD piperacillin-tazobactam (ZOSYN) 4.5 g IVPB in 100 mL NS MBP (CD) 4.5 g Intravenous Q8H Narda Davila PA-C 4.5 g at 04/05/25 0544 Potassium Replacement - Follow Nurse / BPA Driven Protocol Not Applicable PRN Pk Mckeon MD sodium chloride 0.9 % flush 10 mL 10 mL Intravenous Q12H Pk Mckeon MD 10 mL at 04/05/25 0907 sodium chloride 0.9 % flush 10 mL 10 mL Intravenous PRN Pk Mckeon MD 10 mL at 04/04/25 0900 sodium chloride 0.9 % infusion 40 mL 40 mL Intravenous PRN Pk Mckeon MD thiamine (VITAMIN B-1) tablet 100 mg 100 mg Oral Daily Raymond Reed, PharmD 100 mg at 04/05/25 0906 Physician Progress Notes (most recent note) Michael Bolton MD at 04/04/25 1903 Neurology Note Patient: Regine Anguiano DATE OF : 1955 REFERRING PHYSICIAN: Dr. Alvarado CHIEF COMPLAINT: Seizures, AMS HISTORY OF PRESENT ILLNESS: The patient has been more alert today per RN, talking more. Noted to be weak and unable to get up w/o help. Past Medical History: Past Medical History: Diagnosis Date Hypertension Past Surgical History: Past Surgical History: Procedure Laterality Date HYSTERECTOMY Social History: Social History Socioeconomic History Marital status: Tobacco Use Smoking status: Every Day Current packs/day: 2.00 Average packs/day: 2.0 packs/day for 45.8 years (91.6 ttl pk-yrs) Types: Cigarettes Start date: 1979 Smokeless tobacco: Never Vaping Use Vaping status: Never Used Substance and Sexual Activity Alcohol use: Yes Drug use: Never Sexual activity: Not Currently Family History: Family History Problem Relation Name Age of Onset Seizures Father Medications Prior to Admission: Prior to Admission medications Not on File Allergies: Patient has no known allergies. Review of system Review of Systems Unable to perform ROS: Mental status change Vitals: 04/04/25 1522 BP: 162/93 Pulse: 95 Resp: 18 Temp: 98.6 ??F (37 ??C) SpO2: 99% Physical exam Physical Exam Cardiovascular: Rate and Rhythm: Normal rate and regular rhythm. Pulmonary: Effort: Pulmonary effort is normal. Neurological: Mental Status: She is oriented to person, place, and time. Comments: Asleep, awakens to voice and touch, speech is more clear, moves limbs on command, goes back to sleep. Lab Results Component Value Date WBC 2.76 (L) 04/03/2025 HGB 9.3 (L) 04/03/2025 HCT 28.6 (L) 04/03/2025 MCV 96.6 04/03/2025 PLT 68 (L) 04/03/2025 Lab Results Component Value Date GLUCOSE 114 (H) 04/03/2025 BUN 7.6 (L) 04/03/2025 CREATININE 0.79 04/03/2025 BCR 9.6 04/03/2025 CO2 22.7 04/03/2025 CALCIUM 9.0 04/03/2025 ALBUMIN 3.5 04/01/2025 AST 42 (H) 04/01/2025 ALT 21 04/01/2025 During this visit the following were done: Labs Reviewed [x] Labs Ordered [] Radiology Reports Reviewed [] Radiology Ordered [] EKG, echo, and/or stress test reviewed [] EEG results reviewed [] EEG reviewed and interpreted per myself [] Discussed case with neurointerventionalist or neuroradiologist [] Referring Provider Records Reviewed [] ER Records Reviewed [] Hospital Records Reviewed [] History Obtained From Family [] Radiological images view and Interpreted per myself [] Case Discussed with referring provider [] Decision to obtain and request outside records [] Assessment and Plan Seizures resolved, suspected withdrawal given seizures in alcohol/drug rehab, suspected prior seizure disorder. Drowsiness 22 meds and TME, improving.Tiny left occipital SDH, stable. Ammonia 36, b12 345, folate>20, TSH 4.4. - Decrease Keppra to 250 mg bid. - Librium stopped. - MVI. - No driving for 90 days on discharge. - Outpatient neurology F/U. - ST, PT, OT. Likely will need inpatient rehab. Call for questions, will see prn. Thanks. 0709 Physical Therapy Notes (most recent note) Wendi Boswell, PT at 04/02/25 1050 Version 1 of 1 Patient Name: Regine Anguiano : 1955 Today's Date: 04/02/2025 Admit Date: 03/31/2025 Visit Dx: ICD-10-CM ICD-9-CM 1. Dysphagia, unspecified type R13.10 787.20 Patient Active Problem List Diagnosis Seizure Aspiration pneumonitis -aspiration pneumonitis versus pneumonia Acute hypoxemic respiratory failure -noted from outside hospital where she was intubated. Alcohol dependence with withdrawal delirium -presented with seizures concerning for potential alcohol withdrawal Anemia -uncertain etiology or chronicity No past medical history on file. No past surgical history on file. General Information Row Name 04/02/25 1316 Physical Therapy Time and Intention Document Type evaluation -KE Mode of Treatment physical therapy;co-treatment -KE Row Name 04/02/25 131 General Information Patient Profile Reviewed yes -KE Prior Level of Function -- Pt limited historian. Per chart review has RW but is a limited ambulator, lives with who provides assist to bathroom, no community mobility. -KE Existing Precautions/Restrictions other (see comments);fall;seizures gonsalez, significant visual deficits (R eye>L), CIWA -KE Barriers to Rehab medically complex;previous functional deficit;cognitive status;visual deficit -KE Row Name 04/02/25 1316 Living Environment Current Living Arrangements home -KE People in Home spouse -KE Row Name 04/02/25 1316 Home Main Entrance Number of Stairs, Main Entrance two per CR -KE Row Name 04/02/25 1316 Cognition Orientation Status (Cognition) oriented x 3 -KE Row Name 04/02/25 1316 Safety Issues/Impairments Affecting Functional Mobility Safety Issues Affecting Function (Mobility) ability to follow commands;awareness of need for assistance;safety precaution awareness;safety precautions follow- through/compliance;insight into deficits/self-awareness;sequencing abilities;problem-solving;judgment -KE Impairments Affecting Function (Mobility) balance;cognition;coordination;endurance/activity tolerance;motor planning;postural/trunk control;strength;visual/perceptual -KE Cognitive Impairments, Mobility Safety/Performance attention;awareness, need for assistance;safety precaution awareness;safety precaution follow-through;insight into deficits/self-awareness;problem-solving/reasoning;sequencing abilities -KE User Lockwood (r) = Recorded By, (t) = Taken By, (c) = Cosigned By Initials Name Provider Type Wendi Flowers PT Physical Therapist Mobility Row Name 04/02/25 1319 Bed Mobility Bed Mobility supine-sit -KE Supine-Sit [place] (Bed Mobility) moderate assist (50% patient effort);2 person assist;verbal cues -KE Assistive Device (Bed Mobility) bed rails;head of bed elevated;repositioning sheet -KE Comment, (Bed Mobility) VC/TCs for sequencing -KE Row Name 04/02/25 1319 Bed-Chair Transfer Bed-Chair [place] (Transfers) maximum assist (25% patient effort);2 person assist;verbal cues -KE Assistive Device (Bed-Chair Transfers) other (see comments) B UE support -MATTY Comment, (Bed-Chair Transfer) attempted initial t/f w/ FWW, pt unable to sequence req return to sitand use of B UE support for stand pivot to chair -KE Row Name 04/02/25 1319 Sit-Stand Transfer Sit-Stand [place] (Transfers) moderate assist (50% patient effort);2 person assist;verbal cues-KE Assistive Device (Sit-Stand Transfers) other (see comments) B UE support -KE User Lockwood (r) = Recorded By, (t) = Taken By, (c) = Cosigned By Initials Name Provider Type Wendi Flowers PT Physical Therapist Obj/Interventions Row Name 04/02/25 1320 Range of Motion Comprehensive General Range of Motion bilateral lower extremity ROM WFL -KE Row Name 04/02/25 1320 Strength Comprehensive (MMT) General Manual Muscle Testing (MMT) Assessment lower extremity strength deficits identified -KE Comment, General Manual Muscle Testing (MMT) Assessment B LE grossly 3+/5 -KE Row Name 04/02/25 1320 Balance Balance Assessment sitting static balance;sitting dynamic balance;standing static balance;standing dynamic balance -KE Static Sitting Balance contact guard -KE Dynamic Sitting Balance minimal assist -KE Position, Sitting Balance unsupported -KE Static Standing Balance moderate assist;2-person assist -KE Dynamic Standing Balance maximum assist;2-person assist -KE Position/Device Used, Standing Balance supported -KE Balance Interventions sitting;sit to stand;supported;static;dynamic;standing -KE Comment, Balance posterior lean -KE Row Name 04/02/25 1320 Sensory Assessment (Somatosensory) Sensory Assessment (Somatosensory) unable/difficult to assess -KE User Lockwood (r) = Recorded By, (t) = Taken By, (c) = Cosigned By Initials Name Provider Type Wendi Flowers, PT Physical Therapist Goals/Plan Row Name 04/02/25 132 Bed Mobility Goal 1 (PT) Activity/Assistive Device (Bed Mobility Goal 1, PT) sit to supine/supine to sit -KE [place] Level/Cues Needed (Bed Mobility Goal 1, PT) minimum assist (75% or more patient effort) -KE Time Frame (Bed Mobility Goal 1, PT) short term goal (STG);5 days -KE Progress/Outcomes (Bed Mobility Goal 1, PT) new goal - Row Name 04/02/25 1320 Transfer Goal 1 (PT) Activity/Assistive Device (Transfer Goal 1, PT) ama-iz-[id number]/kxmmi-ey-iru;[id number]-jd-ehcdh/[id number]-[id number]-uby-KE [place] Level/Cues Needed (Transfer Goal 1, PT) minimum assist (75% or more patient effort) -KE Time Frame (Transfer Goal 1, PT) senior living goal (LTG);10 days -KE Progress/Outcome (Transfer Goal 1, PT) new goal -KE Row Name 04/02/25 1321 Gait Training Goal 1 (PT) Activity/Assistive Device (Gait Training Goal 1, PT) gait (walking locomotion);assistive device use;improve balance and speed;walker, rolling -KE [place] Level (Gait Training Goal 1, PT) minimum assist (75% or more patient effort) -KE Distance (Gait Training Goal 1, PT) 50 -KE Time Frame (Gait Training Goal 1, PT) senior living goal (LTG);10 days -KE Progress/Outcome (Gait Training Goal 1, PT) new goal - Row Name 04/02/25 1325 Therapy Assessment/Plan (PT) Planned Therapy Interventions (PT) balance training;bed mobility training;home exercise program;gait training;neuromuscular re-education;patient/family education;postural re-education;ROM (range of motion);stair training;strengthening;stretching;transfer training -KE User Lockwood (r) = Recorded By, (t) = Taken By, (c) = Cosigned By Initials Name Provider Type Wendi Flowers, PT Physical Therapist Clinical Impression Row Name 04/02/25 1321 Pain Additional Documentation Pain Scale: FACES Pre/Post-Treatment (Group) -KE Row Name 04/02/25 1321 Pain Scale: FACES Pre/Post-Treatment Pain: FACES Scale, Pretreatment 2-->hurts little bit -KE Posttreatment Pain Rating 2-->hurts little bit -KE Row Name 04/02/25 1321 Plan of Care Review Plan of Care Reviewed With patient -KE Outcome Evaluation PT eval complete. Pt presents with balance deficits, generalized weakness, cognitive impairments, limited safety awareness, impaired functional transfers, and decreased functional endurance warranting IPPT. Pt assisted in SPT w/ B UE support and MaxAx2. PT rec SNF, will continue to monitor progress. -KE Row Name 04/02/25 1321 Therapy Assessment/Plan (PT) Patient/Family Therapy Goals Statement (PT) did not state -KE Rehab Potential (PT) fair -KE Criteria for Skilled Interventions Met (PT) yes;skilled treatment is necessary;meets criteria -KE Therapy Frequency (PT) daily -KE Predicted Duration of Therapy Intervention (PT) 10 days -KE Row Name 04/02/25 1321 Vital Signs Pre Systolic BP Rehab 110 -KE Pre Treatment Diastolic BP 56 -KE Post Systolic BP Rehab 121 -KE Post Treatment Diastolic BP 60 -KE Pretreatment Heart Rate (beats/min) 64 -KE Posttreatment Heart Rate (beats/min) 71 -KE Pre SpO2 (%) 91 -KE O2 Delivery Pre Treatment room air -KE O2 Delivery Intra Treatment room air -KE Post SpO2 (%) 91 -KE O2 Delivery Post Treatment room air -KE Pre Patient Position Supine -KE Intra Patient Position Standing -KE Post Patient Position Sitting -KE Row Name 04/02/25 1321 Positioning and Restraints Pre-Treatment Position in bed -KE Post Treatment Position chair -KE In Chair notified nsg;reclined;waffle cushion;on mechanical lift sling;call light within reach;encouraged to call for assist;exit alarm on;legs elevated;heels elevated;RUE elevated;LUE elevated -MATTY User Lockwood (r) = Recorded By, (t) = Taken By, (c) = Cosigned By Initials Name Provider Type Wendi Flowers PT Physical Therapist Outcome Measures Row Name 04/02/25 1324 How much help from another person do you currently need... Turning from your back to your side while in flat bed without using bedrails? 3 -KE Moving from lying on back to sitting on the side of a flat bed without bedrails? 2 -KE Moving to and from a bed to a chair (including a wheelchair)? 2 -KE Standing up from a chair using your arms (e.g., wheelchair, bedside chair)? 2 -KE Climbing 3-5 steps with a railing? 1 -KE To walk in hospital room? 2 -KE AM-PAC 6 Clicks Score (PT) 12 -KE Highest Level of Mobility Goal Move to Chair/Commode-4 -KE Row Name 04/02/25 1324 Functional Assessment Outcome Measure Options AM-PAC 6 Clicks Basic Mobility (PT) - User Lockwood (r) = Recorded By, (t) = Taken By, (c) = Cosigned By Initials Name Provider Type Wendi Flowers PT Physical Therapist Physical Therapy Education Title: PT OT HYDRAULIC ENGINEER Therapies (In Progress) Topic: Physical Therapy (In Progress) Point: Mobility training (In Progress) Learning Progress Summary Patient Acceptance, E, NR by MATTY at 04/02/2025 1325 Point: Home exercise program (Not Started) Learner Progress: Not documented in this visit. Point: Body mechanics (In Progress) Learning Progress Summary Patient Acceptance, E, NR by MATTY at 04/02/2025 1325 Point: Precautions (In Progress) Learning Progress Summary Patient Acceptance, E, NR by MATTY at 04/02/2025 132 User Lockwood Initials Effective Dates Name Provider Type Tim STARR 04/28/23 - Wendi Boswell PT Physical Therapist PT PT Recommendation and Plan Recommended discharge disposition is based on the functional assessment performed by PT/OT/Speech therapy (as applicable) and may not reflect the medical necessity determined by your provider or services covered by an individual patient's insurance plan or patient resource. Planned Therapy Interventions (PT): balance training, bed mobility training, home exercise program,gait training, neuromuscular re-education, patient/family education, postural re-education, ROM (range of motion), stair training, strengthening, stretching, transfer training Therapy Frequency (PT): daily Outcome Evaluation: PT eval complete. Pt presents with balance deficits, generalized weakness, cognitive impairments, limited safety awareness, impaired functional transfers, and decreased functionalendurance warranting IPPT. Pt assisted in SPT w/ B UE support and MaxAx2. PT rec SNF, will continueto monitor progress. Time Calculation: PT Evaluation Complexity History, PT Evaluation Complexity: 3 or more personal factors and/or comorbidities Examination of Body Systems (PT Eval Complexity): total of 3 or more elements Clinical Presentation (PT Evaluation Complexity): evolving Clinical Decision Making (PT Evaluation Complexity): moderate complexity Overall Complexity (PT Evaluation Complexity): moderate complexity PT Charges Row Name 04/02/25 1325 Time Calculation Start Time 1050 -KE PT Received On 04/02/25 -KE PT Goal Re-Cert Due Date 04/12/25 -KE Untimed Charges PT Eval/Re-eval Minutes 52 -KE Total Minutes Untimed Charges Total Minutes 52 -KE Total Minutes 52 -KE User Lockwood (r) = Recorded By, (t) = Taken By, (c) = Cosigned By Initials Name Provider Type Wendi Flowers PT Physical Therapist Therapy Charges for Today Code Description Service Date Service Provider Modifiers Qty 27451734983 HC PT EVAL MOD COMPLEXITY 4 04/02/2025 Wendi Boswell PT GP 1 PT G-Codes Outcome Measure Options: AM-PAC 6 Clicks Basic Mobility (PT) AM-PAC 6 Clicks Score (PT): 12 PT Discharge Summary Anticipated Discharge Disposition (PT): [facility] facility Wendi Boswell PT 04/02/2025 1326 Occupational Therapy Notes (most recent note) To Steiner, OT at 04/05/25 1044 Patient Name: Regine Anguiano : 1955 Today's Date: 04/05/2025 Admit Date: 03/31/2025 Visit Dx: ICD-10-CM ICD-9-CM 1. Oropharyngeal dysphagia R13.12 787.22 Patient Active Problem List Diagnosis Seizure Aspiration pneumonitis -aspiration pneumonitis versus pneumonia Acute hypoxemic respiratory failure -noted from outside hospital where she was intubated. Alcohol dependence with withdrawal delirium -presented with seizures concerning for potential alcohol withdrawal Anemia -uncertain etiology or chronicity Past Medical History: Diagnosis Date Hypertension Past Surgical History: Procedure Laterality Date HYSTERECTOMY General Information Row Name 04/05/25 1125 OT Time and Intention Document Type therapy note (daily note) -CS Mode of Treatment occupational therapy -CS Row Name 04/05/25 1125 General Information Patient Profile Reviewed yes -CS Existing Precautions/Restrictions fall;seizures;other (see comments) low vision (R>L) -CS Barriers to Rehab medically complex;previous functional deficit;cognitive status;visual deficit -CS Row Name 04/05/25 1125 Cognition Orientation Status (Cognition) oriented to;person;disoriented to;place;time;situation -CS Row Name 04/05/25 1125 Safety Issues/Impairments Affecting Functional Mobility Safety Issues Affecting Function (Mobility) awareness of need for assistance;insight into deficits/self-awareness;judgment;positioning of assistive device;problem-solving;safety precaution awareness;sequencing abilities;safety precautions follow-through/compliance -CS Impairments Affecting Function (Mobility) balance;cognition;coordination;endurance/activity tolerance;motor planning;postural/trunk control;strength;visual/perceptual -CS Cognitive Impairments, Mobility Safety/Performance insight into deficits/self-awareness;judgment;problem-solving/reasoning;sequencing abilities;safety precaution follow-through;safety precaution aware ness;impulsivity;awareness, need for assistance -CS User Lockwood (r) = Recorded By, (t) = Taken By, (c) = Cosigned By Initials Name Provider Type CS To Steiner OT Occupational Therapist Mobility/ADL's Row Name 04/05/25 1126 Bed Mobility Bed Mobility supine-sit;scooting/bridging -CS Scooting/Bridging [place] (Bed Mobility) moderate assist (50% patient effort);1 person assist;verbal cues;nonverbal cues (demo/gesture) -CS Supine-Sit [place] (Bed Mobility) 2 person assist;verbal cues;nonverbal cues (demo/gesture);moderate assist (50% patient effort) -CS Bed Mobility, Safety Issues decreased use of arms for pushing/pulling;decreased use of legs for bridging/pushing;impaired trunk control for bed mobility;cognitive deficits limit understanding -CS Assistive Device (Bed Mobility) bed rails;head of bed elevated;repositioning sheet -CS Comment, (Bed Mobility) posterior lean in sitting, fear of anterior weight shifting, assist for BLEs and trunk -CS Row Name 04/05/25 112 Transfers Transfers sit-stand transfer;bed-chair transfer -CS Comment, (Transfers) BUE support for SPT to recliner, STS x 3 for sampson-care following bowel incontinence, [place] for hand placement -CS Row Name 04/05/25 1126 Bed-Chair Transfer Bed-Chair [place] (Transfers) moderate assist (50% patient effort);2 person assist;verbal cues;nonverbal cues (demo/gesture) - Assistive Device (Bed-Chair Transfers) other (see comments) -CS Row Name 04/05/25 112 Sit-Stand Transfer Sit-Stand [place] (Transfers) moderate assist (50% patient effort);1 person assist;1 person tomanage equipment;verbal cues;nonverbal cues (demo/gesture) - Assistive Device (Sit-Stand Transfers) walker, front-wheeled -CS Row Name 04/05/25 1126 Activities of Daily Living BADL Assessment/Intervention lower body dressing;grooming;feeding;upper body dressing - Row Name 04/05/25 112 Lower Body Dressing Assessment/Training [place] Level (Lower Body Dressing) doff;don;socks;dependent (less than 25% patient effort) -CS Position (Lower Body Dressing) edge of bed sitting -CS Row Name 04/05/25 1126 Grooming Assessment/Training [place] Level (Grooming) wash face, hands;moderate assist (50% patient effort);hair care, combing/brushing;dependent (less than 25% patient effort) -CS Row Name 04/05/25 1126 Self-Feeding Assessment/Training [place] Level (Feeding) prepare tray/open items;maximum assist (25% patient effort);liquids tomouth;scoop food and bring to mouth;minimum assist (75% patient effort);verbal cues -CS Comment, (Feeding) low vision -CS Row Name 04/05/25 112 Upper Body Dressing Assessment/Training [place] Level (Upper Body Dressing) don;doff;front opening garment;minimum assist (75% patienteffort) -CS Position (Upper Body Dressing) supported sitting -CS Comment, (Upper Body Dressing) Max visual cues for threading -CS User Lockwood (r) = Recorded By, (t) = Taken By, (c) = Cosigned By Initials Name Provider Type To Carmen OT Occupational Therapist Obj/Interventions Row Name 04/05/25 1129 Motor Skills Motor Skills motor control/coordination interventions;functional endurance -CS Functional Endurance stable on RA -CS Motor Control/Coordination Interventions occupation/activity based treatment;therapeutic exercise/ROM -CS Gross Motor Skill, Impairments Detail UB dressing/threading tasks -CS Therapeutic Exercise shoulder;elbow/forearm;other (see comments) BUE/BLE AROM/AAROM warm-up prior to mobility -CS Row Name 04/05/25 1129 Balance Balance Assessment sitting static balance;sitting dynamic balance;standing static balance;standing dynamic balance -CS Static Sitting Balance minimal assist;1-person assist -CS Dynamic Sitting Balance moderate assist;1-person assist -CS Position, Sitting Balance sitting edge of bed -CS Static Standing Balance minimal assist;2-person assist;verbal cues;non-verbal cues (demo/gesture) -CS Dynamic Standing Balance moderate assist;2-person assist;verbal cues;non-verbal cues (demo/gesture)-CS Position/Device Used, Standing Balance supported;walker, front-wheeled -CS Balance Interventions sitting;sit to stand;occupation based/functional task;UE activity with balance activity;weight shifting activity -CS User Lockwood (r) = Recorded By, (t) = Taken By, (c) = Cosigned By Initials Name Provider Type To Carmen OT Occupational Therapist Goals/Plan No documentation. Clinical Impression Row Name 04/05/25 1130 Pain Assessment Additional Documentation Pain Scale: FACES Pre/Post-Treatment (Group) - Row Name 04/05/25 1130 Pain Scale: FACES Pre/Post-Treatment Pain: FACES Scale, Pretreatment 0-->no hurt - Posttreatment Pain Rating 0-->no hurt - Row Name 04/05/25 1139 Plan of Care Review Plan of Care Reviewed With patient -CS Progress improving -CS Outcome Evaluation Pt alert, following all commands, and oriented to self only. Required less assist for transfer this date, remains grossly MaxA for self-care. Good effort with pre-mobility BUE/BLE AAROM warm-up. Will cont IPOT per POC as tolerated. Rec d/c to SNF. - Row Name 04/05/25 1130 Therapy Plan Review/Discharge Plan (OT) Anticipated Discharge Disposition (OT) [facility] facility - Row Name 04/05/25 1130 Vital Signs Pre Systolic BP Rehab -- RN cleared for eval -CS O2 Delivery Pre Treatment room air -CS O2 Delivery Intra Treatment room air -CS O2 Delivery Post Treatment room air -CS Pre Patient Position Supine -CS Intra Patient Position Standing -CS Post Patient Position Sitting -CS Row Name 04/05/25 1130 Positioning and Restraints Pre-Treatment Position in bed -CS Post Treatment Position chair -CS In Chair notified nsg;reclined;sitting;call light within reach;encouraged to call for assist;exit alarm on;with nsg;waffle cushion;legs elevated;heels elevated;on mechanical lift sling -CS User Lockwood (r) = Recorded By, (t) = Taken By, (c) = Cosigned By Initials Name Provider Type To Carmen OT Occupational Therapist Outcome Measures Row Name 04/05/25 1132 How much help from another is currently needed... Putting on and taking off regular lower body clothing? 2 -CS Bathing (including washing, rinsing, and drying) 2 -CS Toileting (which includes using toilet bed monreal or urinal) 2 -CS Putting on and taking off regular upper body clothing 2 -CS Taking care of personal grooming (such as brushing teeth) 2 -CS Eating meals 2 -CS AM-PAC 6 Clicks Score (OT) 12 -CS Row Name 04/05/25 1132 Functional Assessment Outcome Measure Options AM-PAC 6 Clicks Daily Activity (OT) -CS User Lockwood (r) = Recorded By, (t) = Taken By, (c) = Cosigned By Initials Name Provider Type To Carmen OT Occupational Therapist Occupational Therapy Education Title: PT OT HYDRAULIC ENGINEER Therapies (In Progress) Topic: Occupational Therapy (Done) Point: ADL training (Done) Learning Progress Summary Patient Acceptance, E,D, VU,DU by at 04/05/2025 1133 Acceptance, E,TB, NR by at 04/02/2025 1050 Point: Home exercise program (Done) Learning Progress Summary Patient Acceptance, E,D, VU,DU by at 04/05/2025 1133 Point: Precautions (Done) Learning Progress Summary Patient Acceptance, E,D, VU,DU by at 04/05/2025 1133 Acceptance, E,TB, NR by at 04/02/2025 1050 Point: Body mechanics (Done) Learning Progress Summary Patient Acceptance, E,D, VU,DU by at 04/05/2025 1133 Acceptance, E,TB, NR by at 04/02/2025 1050 User Lockwood Initials Effective Dates Name Provider Type Discipline 11/26/20 - To Steiner OT Occupational Therapist OT 03/18/25 - Shelly Jones OT Occupational Therapist OT OT Recommendation and Plan Recommended discharge disposition is based on the functional assessment performed by PT/OT/Speech therapy (as applicable) and may not reflect the medical necessity determined by your provider or services covered by an individual patient's insurance plan or patient resource. Plan of Care Review Plan of Care Reviewed With: patient Progress: improving Outcome Evaluation: Pt alert, following all commands, and oriented to self only. Required less assist for transfer this date, remains grossly MaxA for self- care. Good effort with pre-mobility BUE/BLEAAROM warm-up. Will cont IPOT per POC as tolerated. Rec d/c to SNF. Time Calculation: Time Calculation- OT Row Name 04/05/251132 Time Calculation- OT OT Start Time 1044 -CS OT Received On 04/05/25 -CS OT Goal Re-Cert Due Date 04/12/25 -CS Timed Charges 86381 - OT Therapeutic Exercise Minutes 10 -CS 58477 - OT Therapeutic Activity Minutes 18 -CS 83310 - OT Self Care/Mgmt Minutes 12 -CS Total Minutes Timed Charges Total Minutes 40 -CS Total Minutes 40 -CS User Lockwood (r) = Recorded By, (t) = Taken By, (c) = Cosigned By Initials Name Provider Type To Steiner OT Occupational Therapist Therapy Charges for Today Code Description Service Date Service Provider Modifiers Qty 42601210596 HC OT THERAPEUTIC ACT EA 15 MIN 04/05/2025 To Steiner OT GO 1 95829114594 HC OT SELF CARE/MGMT/TRAIN EA 15 MIN 04/05/2025 To Steiner, OT GO 1 60714810094 OT THER PROC EA 15 MIN 04/05/2025 To Steiner, OT GO 1 15968229655 HC OT THER SUPP EA 15 MIN 04/05/2025 To Steiner, OT GO 1 60975644204 HC OT THER SUPP EA 15 MIN 04/05/2025 Monica Steinerdustin Stiles, OT GO 1 To Steiner OT 04/05/2025 1136 Speech Language Pathology Notes (most recent note) Virginie Jacinto MS CCC-HYDRAULIC ENGINEER at 04/03/25 142 Acute Care - Speech Language Pathology Speech & Swallow Treatment Note Effie Patient Name: Regine Anguiano : 1955 Today's Date: 04/03/2025 Admit Date: 03/31/2025 Visit Dx: ICD-10-CM ICD-9-CM 1. Oropharyngeal dysphagia R13.12 787.22 Patient Active Problem List Diagnosis Seizure Aspiration pneumonitis -aspiration pneumonitis versus pneumonia Acute hypoxemic respiratory failure -noted from outside hospital where she was intubated. Alcohol dependence with withdrawal delirium -presented with seizures concerning for potential alcohol withdrawal Anemia -uncertain etiology or chronicity Past Medical History: Diagnosis Date Hypertension Past Surgical History: Procedure Laterality Date HYSTERECTOMY HYDRAULIC ENGINEER Recommendation and Plan Recommended discharge disposition is based on the functional assessment performed by PT/OT/Speech therapy (as applicable) and may not reflect the medical necessity determined by your provider or services covered by an individual patient's insurance plan or patient resource. HYDRAULIC ENGINEER Diet Recommendation: nectar thick liquids, ice chips between meals after oral care, with supervision, eliee (04/03/251421) Recommended Precautions and Strategies: upright posture during/after eating, general aspiration precautions, assist with feeding, no straw, check mouth frequently for oral residue/pocketing () HYDRAULIC ENGINEER Rec. for Method of Medication Administration: meds whole, with puree, as tolerated (04/03/251421) Monitor for Signs of Aspiration: yes, notify HYDRAULIC ENGINEER if any concerns (04/03/251421) Anticipated Discharge Disposition (HYDRAULIC ENGINEER): [facility] facility (04/03/251421) Therapy Frequency (Swallow): 5 days per week (04/03/251421) Predicted Duration Therapy Intervention (Days): 2 weeks (04/03/251421) Oral Care Recommendations: Oral Care BID/PRN, Suction toothbrush (04/03/251421) Daily Summary of Progress (HYDRAULIC ENGINEER): progress towards functional goals is fair (04/03/251421) Treatment Assessment (HYDRAULIC ENGINEER): clinical signs of, aspiration, dysarthria, cognitive-linguistic disorder (04/03/251421) Plan for Continued Treatment (HYDRAULIC ENGINEER): continue treatment per plan of care (04/03/251421) Progress: improving SWALLOW EVALUATION (Last 72 Hours) HYDRAULIC ENGINEER Adult Swallow Evaluation Row Name 04/03/25142104/03/25 0920 04/02/25 1330 04/02/25 1100 04/01/25 1545 Rehab Evaluation Document Type therapy note (daily note) -MM therapy note (daily note) -MM (r) EM (t) MM (c) evaluation -SM (r) LS (t) SM (c) evaluation;re-evaluation -SM (r) LS (t) SM (c) evaluation -RS Subjective Information no complaints -MM no complaints -MM (r) EM (t) MM (c) no complaints -SM (r) LS (t) SM (c) -- no complaints -RS Patient Observations alert;cooperative -MM cooperative;agree to therapy -MM (r) EM (t) MM (c) cooperative;lethargic -SM (r) LS (t) SM (c) -- alert -RS Patient/Family/Caregiver Comments/Observations no family present -MM No family present -MM (r) EM (t) MM (c) -- -- Pt is very confused, in constant motion in bed -RS Patient Effort good -MM good -MM (r) EM (t) MM (c) good -SM (r) LS (t) SM (c) -- fair -RS Symptoms Noted During/After Treatment none -MM none -MM (r) EM (t) MM (c) none - SM (r) LS (t) SM (c) -- none -RS Oral Care -- -- -- -- oral rinse provided -RS General Information Patient Profile Reviewed yes -MM yes -MM (r) EM (t) MM (c) yes -SM (r) LS (t) SM (c) -- yes -RS Pertinent History Of Current Problem -- -- See initial HYDRAULIC ENGINEER eval -SM (r) LS (t) SM (c) -- Pt is a 70yoF w PMHx ETOH abuse who presented to OSH after being found down unresponsive. Pt with witnessed seizure activity and intubated. She was transferred to [facility] for higher level of care. SDH found on MRIper [facility] notes, no indication for surgical intervention. Pt was extubated at approximately 1500 today. 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 -RS Precautions/Limitations, Hearing -- -- hearing impairment, bilaterally -SM (r) LS (t) SM (c) -- hearing impairment, bilaterally;difficult to assess -RS Prior Level of Function-Communication -- -- unknown -SM (r) LS (t) SM (c) -- unknown -RS Prior Level of Function-Swallowing -- -- -- -- unknown;other (see comments) no previous HYDRAULIC ENGINEER hx, pt u/a to indicate -RS Plans/Goals Discussed with -- -- patient -SM (r) LS (t) SM (c) -- patient -RS Pain Pretreatment Pain Rating 0/10 - no pain -MM 0/10 - no pain -MM (r) EM (t) MM (c) 6/10 -SM (r) LS (t) SM (c) -- -- Posttreatment Pain Rating 0/10 - no pain -MM 0/10 - no pain -MM (r) EM (t) MM (c) 6/10 -SM (r) LS (t) SM (c) -- -- Pain Location -- -- shoulder -SM (r) LS (t) SM (c) -- -- Pain Side/Orientation -- -- right -SM (r) LS (t) SM (c) -- -- Pain Management Interventions -- -- other (see comments) nursing aware and managing -SM (r) LS (t) SM (c) -- -- Additional Documentation -- -- -- -- Pain Scale: FACES Pre/Post-Treatment (Group) -RS Pain Scale: FACES Pre/Post-Treatment Pain: FACES Scale, Pretreatment -- -- -- -- 2-->hurts little bit -RS Posttreatment Pain Rating -- -- -- -- 2-->hurts little bit -RS Oral Motor Structure and Function Dentition Assessment -- -- -- teeth are in poor condition;missing teeth -SM (r) LS (t) SM (c) teethare in poor condition;missing teeth -RS Secretion Management -- -- -- -- wet vocal quality -RS Mucosal Quality -- -- -- -- sticky -RS Volitional Swallow -- -- -- -- unable to elicit -RS Volitional Cough -- -- -- -- weak;reduced respiratory support -RS Oral Musculature and Cranial Nerve Assessment Oral Motor General Assessment -- -- -- generalized oral motor weakness -SM (r) LS (t) SM (c) generalized oral motor weakness -RS General Eating/Swallowing Observations Respiratory Support Currently in Use -- -- nasal cannula -SM (r) LS (t) SM (c) -- nasal cannula -RS Eating/Swallowing Skills -- -- fed by HYDRAULIC ENGINEER;needed assist -SM (r) LS (t) SM (c) fed by HYDRAULIC ENGINEER -SM (r) LS(t) SM (c) fed by HYDRAULIC ENGINEER;unable to perform self-feeding -RS Positioning During Eating -- -- upright in chair -SM (r) LS (t) SM (c) upright in chair -SM (r) LS (t) SM (c) upright in bed -RS Utensils Used -- -- spoon;straw -SM (r) LS (t) SM (c) spoon;cup -SM (r) LS (t) SM (c) spoon;cup;straw -RS Consistencies Trialed -- -- regular textures;pureed;ice chips;thin liquids;nectar/syrup-thick liquids -SM (r) LS (t) SM (c) pureed;ice chips;thin liquids -SM (r) LS (t) SM (c) thin liquids;ice chips;pureed -RS Respiratory Respiratory Status -- -- -- -- WFL -RS Date of Intubation -- -- -- 03/31-04/01 -SM (r) LS (t) SM (c) 03/31-04/01 -RS Clinical Swallow Eval Oral Prep Phase -- -- -- WFL -SM (r) LS (t) SM (c) impaired -RS Oral Transit -- -- -- impaired -SM (r) LS (t) SM (c) impaired -RS Oral Residue -- -- -- WFL -SM (r) LS (t) SM (c) WFL -RS Pharyngeal Phase -- -- -- suspected pharyngeal impairment -SM (r) LS (t) SM (c) suspected pharyngeal impairment -RS Esophageal Phase -- -- -- unremarkable -SM (r) LS (t) SM (c) unremarkable -RS Oral Prep Concerns Oral Prep Concerns -- -- -- -- incomplete or weak lip closure around spoon -RS Incomplete or Weak Lip Closure Around Spoon -- -- -- -- all consistencies -RS Oral Prep Concerns, Comment -- -- -- -- u/a to achieve closure around straw or pull thins -RS Oral Transit Concerns Oral Transit Concerns -- -- -- delayed initiation of bolus transit -SM (r) LS (t) SM (c) delayed initiation of bolus transit -RS Delayed Intiation of Bolus Transit -- -- -- all consistencies -SM (r) LS (t) SM (c) all consistencies -RS Pharyngeal Phase Concerns Pharyngeal Phase Concerns -- -- -- multiple swallows;wet vocal quality -SM (r) LS (t) SM (c) multiple swallows;wet vocal quality;cough;throat clear -RS Wet Vocal Quality -- -- -- thin -SM (r) LS (t) SM (c) thin;other (see comments) and ice -RS Multiple Swallows -- -- -- thin;other (see comments) ice -SM (r) LS (t) SM (c) thin;other (see comments) and ice -RS Cough -- -- -- -- thin;other (see comments) and ice -RS Throat Clear -- -- -- -- thin;other (see comments) and ice -RS Pharyngeal Phase Concerns, Comment -- -- -- very weak vocal quality, however pt much more alert. HYDRAULIC ENGINEER will assess via FEES. -SM (r) LS (t) SM (c) Voice is essentially aphonic and coupled with mental status, intelligibility is low. Pt may have essential meds in puree, HYDRAULIC ENGINEER will re-assess and determineneed for instrumental prior to PO diet -RS Fiberoptic Endoscopic Evaluation of Swallowing (FEES) Risks/Benefits Reviewed -- -- risks/benefits explained;patient;agreed to eval - SM (r) LS (t) SM (c)-- -- Nasal Entry -- -- left: -SM (r) LS (t) SM (c) -- -- Scope serial number/identification -- -- 338 -SM (r) LS (t) SM (c) -- -- Anatomy and Physiology Anatomic Considerations -- -- no anatomic structural deviation -SM (r) LS (t) SM (c) -- -- Velopharyngeal -- -- WFL -SM (r) LS (t) SM (c) -- -- Base of Tongue -- -- symmetrical -SM (r) LS (t) SM (c) -- -- Epiglottis -- -- WFL -SM (r) LS (t) SM (c) -- -- Laryngeal Function Breathing -- -- symmetrical -SM (r) LS (t) SM (c) -- -- Laryngeal Function Phonation -- -- symmetrical -SM (r) LS (t) SM (c) -- -- Laryngeal Function to Breath Hold -- -- TVF contact;sustained closure -SM (r) LS (t) SM (c) -- -- Secretion Rating Scale (Too et al. 1995) -- -- 1- secretions present around the laryngeal vestibule -SM (r) LS (t) SM (c) -- -- Secretion Description -- -- thin;clear -SM (r) LS (t) SM (c) -- -- Sensory -- -- sensed scope -SM (r) LS (t) SM (c) -- -- FEES Interpretation Oral Phase -- -- prolonged manipulation;with solids only -SM (r) LS (t) SM (c) -- -- Initiation of Pharyngeal Swallow Initiation of Pharyngeal Swallow -- -- bolus in valleculae -SM (r) LS (t) SM (c) -- -- Pharyngeal Phase -- -- impaired pharyngeal phase of swallowing -SM (r) LS (t) SM (c) -- -- Penetration During the Swallow -- -- thin liquids;secondary to delayed swallow initiation or mistiming;secondary to reduced laryngeal elevation;secondary to reduced vestibular closure;other (see comments) deep and trace penetration w/ consecutive sips. -SM (r) LS (t) SM (c) -- -- Aspiration After the Swallow -- -- thin liquids;secondary to residue;in laryngeal vestibule;other (see comments) Following penetration, residue mixed with saliva and dropped just below the vocal folds. -SM (r) LS (t) SM (c) -- -- Depth of Penetration -- -- deep trace -SM (r) LS (t) SM (c) -- -- Response to Penetration -- -- Yes -SM (r) LS (t) SM (c) -- -- Responsed to penetration with -- -- inconsistent;throat clear;cough -SM (r) LS (t) SM (c) -- -- Response to Aspiration -- -- Yes -SM (r) LS (t) SM (c) -- -- Responsed to aspiration with -- -- inconsistent;throat clear;cough -SM (r) LS (t) SM (c) -- -- Rosenbek's Scale -- -- thin:;6-->Level 6 w/ consecutive sips -SM (r) LS (t) SM (c) -- -- Residue -- -- thin liquids;laryngeal vestibule;secondary to reduced base of tongue retraction;secondary to reduced laryngeal elevation;secondary to reduced hyolaryngeal excursion -SM (r) LS (t) SM (c) -- -- Response to Residue -- -- unable to clear residue -SM (r) LS (t) SM (c) -- -- Attempted Compensatory Maneuvers -- -- bolus size;bolus presentation style;throat clear after swallow -SM (r) LS (t) SM (c) -- -- Response to Attempted Compensatory Maneuvers -- -- prevented penetration;prevented aspiration;reduced residue -SM (r) LS (t) SM (c) -- -- Pharyngeal Phase, Comment -- -- Although residue was cleared and liquid aspirated was ejected out of the airway, pt is lethargic. This contributes to the risk of aspiration and pt will unlikely be able to follow compensatory strategies. -SM (r) LS (t) SM (c) -- -- Swallowing Quality of Life Assessment Education and counseling provided -- -- Signs of aspiration;Silent aspiration - SM (r) LS (t) SM (c)-- Signs of aspiration;Silent aspiration -RS HYDRAULIC ENGINEER Evaluation Clinical Impression HYDRAULIC ENGINEER Swallowing Diagnosis -- -- oral dysphagia;mild-moderate;pharyngeal dysphagia -SM (r) LS (t) SM (c) oral dysphagia;R/O pharyngeal dysphagia -SM (r) LS (t) SM (c) oral dysphagia;R/O pharyngeal dysphagia -RS Functional Impact -- -- risk of aspiration/pneumonia -SM (r) LS (t) SM (c) risk of aspiration/pneumonia -SM (r) LS (t) SM (c) risk of aspiration/pneumonia -RS Rehab Potential/Prognosis, Swallowing -- -- adequate, monitor progress closely - SM (r) LS (t) SM (c) adequate, monitor progress closely -SM (r) LS (t) SM (c) adequate, monitor progress closely -RS Swallow Criteria for Skilled Therapeutic Interventions Met -- -- demonstrates skilled criteria -SM (r) LS (t) SM (c) demonstrates skilled criteria -SM (r) LS (t) SM (c) demonstrates skilled criteria -RS HYDRAULIC ENGINEER Treatment Clinical Impressions Treatment Assessment (HYDRAULIC ENGINEER) clinical signs of;aspiration;dysarthria;cognitive- linguistic disorder -MM continued;toleration of diet;oral dysphagia;mild- moderate;pharyngeal dysphagia -MM (r) EM (t) MM (c) -- -- -- Daily Summary of Progress (HYDRAULIC ENGINEER) progress towards functional goals is fair -MM progress toward functional goals as expected -MM (r) EM (t) MM (c) -- -- -- Barriers to Overall Progress (HYDRAULIC ENGINEER) Cognitive status -MM Cognitive status -MM (r) EM (t) MM (c) -- -- -- Plan for Continued Treatment (HYDRAULIC ENGINEER) continue treatment per plan of care -MM continue treatment per plan of care -MM (r) EM (t) MM (c) -- -- -- Care Plan Review care plan/treatment goals reviewed;risks/benefits reviewed;current/potential barriers reviewed;patient/other agree to care plan - MM care plan/treatment goals reviewed;risks/benefits reviewed;patient/other agree to care plan -MM (r) EM (t) MM (c) -- -- -- Recommendations Therapy Frequency (Swallow) 5 days per week -MM 5 days per week -MM (r) EM (t) MM (c) 5 days per week -SM (r) LS (t) SM (c) -- -- Predicted Duration Therapy Intervention (Days) 2 weeks -MM 2 weeks -MM (r) EM (t) MM (c) 2 weeks -SM (r) LS (t) SM (c) -- -- HYDRAULIC ENGINEER Diet Recommendation nectar thick liquids;ice chips between meals after oral care, with supervision;puree -MM mechanical ground textures;nectar thick liquids;ice chips between meals after oral care, with supervision -MM (r) EM (t) MM (c) mechanical ground textures;nectar thick liquids;ice chips between meals after oral care, with supervision -SM (r) LS (t) SM (c) NPO -SM (r) LS (t) SM (c) NPO -RS Recommended Diagnostics -- -- -- FEES -SM (r) LS (t) SM (c) reassess via clinical swallow evaluation -RS Recommended Precautions and Strategies upright posture during/after eating;general aspiration precautions;assist with feeding;no straw;check mouth frequently for oral residue/pocketing -MM upright posture during/after eating;general aspiration precautions;assist with feeding -MM (r) EM (t) MM (c) upright posture during/after eating;general aspiration precautions;assist with feeding -SM (r) LS (t)SM (c) upright posture during/after eating;general aspiration precautions -SM (r) LS (t) SM (c) upright posture during/after eating;general aspiration precautions -RS Oral Care Recommendations Oral Care BID/PRN;Suction toothbrush -MM Oral Care BID/PRN;Suction toothbrush -MM (r) EM (t) MM (c) Oral Care BID/PRN;Suction toothbrush -SM (r) LS (t) SM (c) Oral Care BID/PRN;Suction toothbrush -SM (r) LS (t) SM (c) Oral Care BID/PRN;Suction toothbrush -RS HYDRAULIC ENGINEER Rec. for Method of Medication Administration meds whole;with puree;as tolerated -MM meds whole;with puree;as tolerated -MM (r) EM (t) MM (c) meds whole;with puree;as tolerated -SM (r) LS (t) SM (c) meds whole;with puree;as tolerated -SM (r) LS (t) SM (c) meds whole;with puree essential meds only -RS Monitor for Signs of Aspiration yes;notify HYDRAULIC ENGINEER if any concerns -MM yes;notify HYDRAULIC ENGINEER if any concerns -MM (r) EM (t) MM (c) yes;notify HYDRAULIC ENGINEER if any concerns -SM (r) LS (t) SM (c) yes;notify HYDRAULIC ENGINEER if any concerns -SM (r) LS (t) SM (c) yes;notify HYDRAULIC ENGINEER if any concerns -RS Anticipated Discharge Disposition (HYDRAULIC ENGINEER) [facility] facility -[facility] -MM (r) EM (t) MM (c) [facility] facility -SM (r) LS (t) SM (c) [facility] facility -SM (r) LS (t) SM (c) [facility] facility -RS Demonstrates Need for Referral to Another Service -- -- speech therapy -SM (r) LS (t) SM (c) speechtherapy -SM (r) LS (t) SM (c) speech therapy;other (see comments) Pt would benefit from full [facility] eval -RS User Lockwood (r) = Recorded By, (t) = Taken By, (c) = Cosigned By Initials Name Effective Dates Denice Regan MS CCC-HYDRAULIC ENGINEER 07/02/24 - Av Elena, MS CCC-HYDRAULIC ENGINEER 02/24/23 - Virginie Cruz, MS [facility]-HYDRAULIC ENGINEER 02/10/24 - Susannah Henderson, Speech Therapy Student 01/25/25 - LS Yumi Singh, Speech Therapy Student 01/29/25 - EDUCATION The patient has been educated in the following areas: Cognitive Impairment Dysphagia (Swallowing Impairment). HYDRAULIC ENGINEER GOALS Row Name 10/22/25 1422 04/03/25 0920 04/02/25 1400 (LTG) Patient will demonstrate functional swallow for Diet Texture (Demonstrate functional swallow) regular textures -MM regular textures -MM (r) EM (t) MM (c) -- -SM (r) LS (t) SM (c) Liquid viscosity (Demonstrate functional swallow) thin liquids -MM thin liquids -MM (r) EM (t) MM (c) -- -SM (r) LS (t) SM (c) [place] (Demonstrate functional swallow) with minimal cues (75-90% accuracy) -MM with minimal cues (75-90% accuracy) -MM (r) EM (t) MM (c) -- -SM (r) LS (t) SM (c) Time Frame (Demonstrate functional swallow) 2 weeks -MM 2 weeks -MM (r) EM (t) MM (c) -- -SM (r) LS(t) SM (c) Barriers (Demonstrate functional swallow) Lethargy -MM Lethargy -MM (r) EM (t) MM (c) -- -SM (r) LS(t) SM (c) Progress/Outcomes (Demonstrate functional swallow) goal ongoing -MM goal ongoing -MM (r) EM (t) MM (c) -- -SM (r) LS (t) SM (c) Comment (Demonstrate functional swallow) -- -- -MM (r) EM (t) MM (c) -- (STG) Patient will tolerate trials of Consistencies Trialed (Tolerate trials) soft to chew (ground) textures;nectar/ mildly thick liquids-MM soft to chew (ground) textures;nectar/ mildly thick liquids -MM (r) EM (t) MM (c) -- -SM (r) LS(t) SM (c) Desired Outcome (Tolerate trials) without signs/symptoms of aspiration;with adequate oral prep/transit/clearance -MM without signs/symptoms of aspiration;with adequate oral prep/transit/clearance -MM(r) EM (t) MM (c) -- -SM (r) LS (t) SM (c) [place] (Tolerate trials) with moderate cues (50-74% accuracy) -MM with moderate cues (50-74% accuracy) -MM (r) EM (t) MM (c) -- -SM (r) LS (t) SM (c) Time Frame (Tolerate trials) 1 week -MM 1 week -MM (r) EM (t) MM (c) -- -SM (r) LS (t) SM (c) Progress/Outcomes (Tolerate trials) continuing progress toward goal -MM continuing progress toward goal -MM (r) EM (t) MM (c) -- -SM (r) LS (t) SM (c) Comment (Tolerate trials) Pt demonstrated cough following trials of nectar thick liquids via straw;no overt s/sx w/ trials via cup sip. PCT reported pt pocketing mechanical ground consistency with lunch; no pocketing observed w/ puree and meds whole in puree. -MM Pt tolerated trials of mechanical ground food items (sausage gravy, eggs, and oatmeal) with prolonged masitcation and anterior loss. Pt tolerated trials of nectar thick liquids (coffee, orange juice, and water) with occasional coughing via straw. -MM (r) EM (t) MM (c) -- (STG) Lingual Strengthening Goal 1 (HYDRAULIC ENGINEER) Activity (Lingual Strengthening Goal 1, HYDRAULIC ENGINEER) increase lingual tone/sensation/control/coordination/movement;increase tongue back strength -MM increase lingual tone/sensation/control/coordination/movement;increase tongue back strength -MM (r) EM (t) MM (c) -- -SM (r) LS (t) SM (c) Increase Lingual Tone/Sensation/Control/Coordination/Movement lingual resistance exercises -MM lingual resistance exercises -MM (r) EM (t) MM (c) -- -SM (r) LS (t) SM (c) Increase Tongue Back Strength lingual resistance exercises -MM lingual resistance exercises -MM (r)EM (t) MM (c) -- -SM (r) LS (t) SM (c) [place]/Accuracy (Lingual Strengthening Goal 1, HYDRAULIC ENGINEER) with moderate cues (50-74% accuracy) -MM with moderate cues (50-74% accuracy) -MM (r) EM (t) MM (c) -- -SM (r) LS (t) SM (c) Time Frame (Lingual Strengthening Goal 1, HYDRAULIC ENGINEER) 1 week -MM 1 week -MM (r) EM (t) MM (c) -- -SM (r) LS (t) SM (c) Progress/Outcomes (Lingual Strengthening Goal 1, HYDRAULIC ENGINEER) goal ongoing -MM goal ongoing -MM (r) EM (t) MM (c) -- -SM (r) LS (t) SM (c) Comment (Lingual Strengthening Goal 1, HYDRAULIC ENGINEER) -- Pt unable to follow directions. - MM (r) EM (t) MM (c) -- (STG) Pharyngeal Strengthening Exercise Goal 1 (HYDRAULIC ENGINEER) Activity (Pharyngeal Strengthening Goal 1, HYDRAULIC ENGINEER) increase superior movement of the hyolaryngeal complex;increase anterior movement of the hyolaryngeal complex;increase closure at entrance to airway/closure of airway at glottis;increase squeeze/positive pressure generation -MM increase superior movement of the hyolaryngeal complex;increase anterior movement of the hyolaryngeal complex;increase closure at entrance to airway/closure of airway at glottis;increase squeeze/positive pressure generation-MM (r) EM (t) MM (c) -- - SM (r) LS (t) SM (c) Increase Superior Movement of the Hyolaryngeal Complex Aye -MM Aye -MM (r) EM (t) MM (c) -- -SM (r) LS (t) SM (c) Increase Anterior Movement of the Hyolaryngeal Complex chin tuck against resistance (CTAR) -MM chintuck against resistance (CTAR) -MM (r) EM (t) MM (c) -- -SM (r) LS (t) SM (c) Increase Closure at Entrance to Airway/Closure of Airway at Glottis supraglottic swallow -MM supraglottic swallow -MM (r) EM (t) MM (c) -- -SM (r) LS (t) SM (c) Increase Squeeze/Positive Pressure Generation hard effortful swallow -MM hard effortful swallow -MM(r) EM (t) MM (c) -- -SM (r) LS (t) SM (c) [place]/Accuracy (Pharyngeal Strengthening Goal 1, HYDRAULIC ENGINEER) with moderate cues (50-74% accuracy) -MM with moderate cues (50-74% accuracy) -MM (r) EM (t) MM (c) -- -SM (r) LS (t) SM (c) Time Frame (Pharyngeal Strengthening Goal 1, HYDRAULIC ENGINEER) 1 week -MM 1 week -MM (r) EM (t) MM (c) -- -SM (r) LS (t) SM (c) Progress/Outcomes (Pharyngeal Strengthening Goal 1, HYDRAULIC ENGINEER) goal ongoing -MM goal ongoing -MM (r) EM (t) MM (c) -- -SM (r) LS (t) SM (c) Comment (Pharyngeal Strengthening Goal 1, HYDRAULIC ENGINEER) -- Pt unable to follow directions. -MM (r) EM (t) MM(c) -- Patient will demonstrate functional communication skills for return to discharge environment [place] Independently -MM Independently -MM (r) EM (t) MM (c) -- -SM (r) LS (t) SM (c) Time frame 2 weeks -MM 2 weeks -MM (r) EM (t) MM (c) -- -SM (r) LS (t) SM (c) Progress/Outcomes goal ongoing -MM goal ongoing -MM (r) EM (t) MM (c) -- -SM (r) LS (t) SM (c) HYDRAULIC ENGINEER Diagnostic Treatment Patient will participate in further assessment in the following areas motor speech;higher-level cognitive-linguistic;clarification of baseline cognitive communication status -MM motor speech;higher-level cognitive- linguistic;clarification of baseline cognitive communication status -MM (r) EM (t) MM(c) -- -SM (r) LS (t) SM (c) Time Frame (Diagnostic) 1 week -MM 1 week -MM (r) EM (t) MM (c) -- -SM (r) LS (t) SM (c) Progress/Outcomes (Additional Goal 1, HYDRAULIC ENGINEER) good progress toward goal -MM progress slower than expected -MM (r) EM (t) MM (c) -- -SM (r) LS (t) SM (c) Comment (Diagnostic) Pt more awake and alert at this time as opposed to in the am. Pt presents withmild dysarthria c/b reduced rate of speech and volume. Pt presents with mild memory and problem solving deficits. Pt was able to repeat number lists of 4 numbers and short phrases for immediate memory; moderate deficits w/ problem solving. -MM HYDRAULIC ENGINEER attempted to call pt's spouse to discuss baseline function, however, he did not answer the phone call. RN reported contact w/ spouse has been attemptedmultiple times with no response throughout length of hospitalization. Higher level cognitive linguistic evaluation not indicated at this time due to unknown baseline and difficulty following commands. -MM (r) EM (t) MM (c) -- Memory Skills Goal 1 (HYDRAULIC ENGINEER) Improve Memory Skills Through Goal 1 (HYDRAULIC ENGINEER) listen to a paragraph and answer questions;80%;with minimal cues (75-90%) -MM -- -- Time Frame (Memory Skills Goal 1, HYDRAULIC ENGINEER) 1 week -MM -- -- Progress/Outcomes (Memory Skills Goal 1, HYDRAULIC ENGINEER) new goal -MM -- -- Functional Problem Solving Skills Goal 1 (HYDRAULIC ENGINEER) Improve Problem Solving Through Goal 1 (HYDRAULIC ENGINEER) answer questions about ADL problems;determine solutions to simple ADL/safety problems;determine solutions to complex problems;80%;with minimal cues (75-90%) -MM -- -- Time Frame (Problem Solving Goal 1, HYDRAULIC ENGINEER) 1 week -MM -- -- Progress/Outcomes (Problem Solving Goal 1, HYDRAULIC ENGINEER) new goal -MM -- -- Row Name 04/02/25 1330 04/02/25 1100 (LTG) Patient will demonstrate functional swallow for Diet Texture (Demonstrate functional swallow) regular textures -SM (r) LS (t) SM (c) -- Liquid viscosity (Demonstrate functional swallow) thin liquids -SM (r) LS (t) SM (c) -- [place] (Demonstrate functional swallow) with minimal cues (75-90% accuracy) -SM (r) LS (t) SM(c) -- Time Frame (Demonstrate functional swallow) 2 weeks -SM (r) LS (t) SM (c) -- Barriers (Demonstrate functional swallow) Lethargy -SM (r) LS (t) SM (c) -- Progress/Outcomes (Demonstrate functional swallow) new goal -SM (r) LS (t) SM (c) -- (STG) Patient will tolerate trials of Consistencies Trialed (Tolerate trials) soft to chew (ground) textures;nectar/ mildly thick liquids-SM (r) LS (t) SM (c) -- Desired Outcome (Tolerate trials) without signs/symptoms of aspiration;with adequate oral prep/transit/clearance -SM (r) LS (t) SM (c) -- [place] (Tolerate trials) with moderate cues (50-74% accuracy) -SM (r) LS (t) SM (c) -- Time Frame (Tolerate trials) 1 week -SM (r) LS (t) SM (c) -- Progress/Outcomes (Tolerate trials) new goal -SM (r) LS (t) SM (c) -- (STG) Lingual Strengthening Goal 1 (HYDRAULIC ENGINEER) Activity (Lingual Strengthening Goal 1, HYDRAULIC ENGINEER) increase lingual tone/sensation/control/coordination/movement;increase tongue back strength -SM (r) LS (t) SM (c) -- Increase Lingual Tone/Sensation/Control/Coordination/Movement lingual resistance exercises -SM (r) LS (t) SM (c) -- Increase Tongue Back Strength lingual resistance exercises -SM (r) LS (t) SM (c) -- [place]/Accuracy (Lingual Strengthening Goal 1, HYDRAULIC ENGINEER) with moderate cues (50-74% accuracy) -SM (r) LS (t) SM (c) -- Time Frame (Lingual Strengthening Goal 1, HYDRAULIC ENGINEER) 1 week -SM (r) LS (t) SM (c) -- Progress/Outcomes (Lingual Strengthening Goal 1, HYDRAULIC ENGINEER) new goal -SM (r) LS (t) SM (c) -- (STG) Pharyngeal Strengthening Exercise Goal 1 (HYDRAULIC ENGINEER) Activity (Pharyngeal Strengthening Goal 1, HYDRAULIC ENGINEER) increase superior movement of the hyolaryngeal complex;increase anterior movement of the hyolaryngeal complex;increase closure at entrance to airway/closure of airway at glottis;increase squeeze/positive pressure generation -SM (r) LS (t) SM (c) -- Increase Superior Movement of the Hyolaryngeal Complex Aye -SM (r) LS (t) SM (c) -- Increase Anterior Movement of the Hyolaryngeal Complex chin tuck against resistance (CTAR) -SM (r) LS (t) SM (c) -- Increase Closure at Entrance to Airway/Closure of Airway at Glottis supraglottic swallow -SM (r) LS(t) SM (c) -- Increase Squeeze/Positive Pressure Generation hard effortful swallow -SM (r) LS (t) SM (c) -- [place]/Accuracy (Pharyngeal Strengthening Goal 1, HYDRAULIC ENGINEER) with moderate cues (50-74% accuracy) -SM (r) LS (t) SM (c) -- Time Frame (Pharyngeal Strengthening Goal 1, HYDRAULIC ENGINEER) 1 week -SM (r) LS (t) SM (c) -- Progress/Outcomes (Pharyngeal Strengthening Goal 1, HYDRAULIC ENGINEER) new goal -SM (r) LS (t) SM (c) -- Patient will demonstrate functional communication skills for return to discharge environment [place] Independently -SM (r) LS (t) SM (c) Independently -SM (r) LS (t) SM (c) Time frame 2 weeks -SM (r) LS (t) SM (c) 2 weeks -SM (r) LS (t) SM (c) Progress/Outcomes goal ongoing -SM (r) LS (t) SM (c) new goal -SM (r) LS (t) SM (c) HYDRAULIC ENGINEER Diagnostic Treatment Patient will participate in further assessment in the following areas motor speech;higher-level cognitive-linguistic;clarification of baseline cognitive communication status -SM (r) LS (t) SM (c) motor speech;higher-level cognitive- linguistic;clarification of baseline cognitive communication status-SM (r) LS (t) SM (c) Time Frame (Diagnostic) 1 week -SM (r) LS (t) SM (c) 1 week -SM (r) LS (t) SM (c) Progress/Outcomes (Additional Goal 1, HYDRAULIC ENGINEER) goal ongoing -SM (r) LS (t) SM (c) new goal -SM (r) LS (t) SM (c) User Lockwood (r) = Recorded By, (t) = Taken By, (c) = Cosigned By Initials Name Provider Type Denice Regan, MS [facility]-HYDRAULIC ENGINEER Speech and Language Pathologist Virginie Cruz MS [facility]-HYDRAULIC ENGINEER Speech and Language Pathologist Susannah Henderson, Speech Therapy Student HYDRAULIC ENGINEER Student Yumi Oleary, Speech Therapy Student HYDRAULIC ENGINEER Student Time Calculation: Time Calculation- HYDRAULIC ENGINEER Row Name 04/03/25 1554 04/03/25 1211 Time Calculation- HYDRAULIC ENGINEER HYDRAULIC ENGINEER Start Time 1422 -MM 0920 -MM (r) EM (t) MM (c) HYDRAULIC ENGINEER Received On 04/03/25 -MM 04/03/25 -MM (r) EM (t) MM (c) Untimed Charges 97121-PL Treatment/ST Modification Prosth Aug 24 -MM -- 32157-FC Treatment Swallow Minutes 11 -MM 68 -MM (r) EM (t) MM (c) Total Minutes Untimed Charges Total Minutes 35 -MM 68 -MM (r) EM (t) Total Minutes 35 -MM 68 -MM (r) EM (t) User Lockwood (r) = Recorded By, (t) = Taken By, (c) = Cosigned By Initials Name Provider Type Virginie Cruz, MS CCC-HYDRAULIC ENGINEER Speech and Language Pathologist EM Susannah Strickland, Speech Therapy Student HYDRAULIC ENGINEER Student Therapy Charges for Today Code Description Service Date Service Provider Modifiers Qty [id number] HC ST TREATMENT SWALLOW 1 04/03/2025 Virginie Jacinto, CCC-HYDRAULIC ENGINEER GN [id number] TREATMENT SPEECH 2 04/03/2025 Virginie Jacinto MS CCC-HYDRAULIC ENGINEER GN 1 Virginie Jacinto MS CCC-HYDRAULIC ENGINEER 04/03/2025 1557 * Lesly Starkey RN - 04/03/2025 2:50 PM EDT Images from the original note were not included. Case Management [phone] Regine Anguiano (70 y.o. Female) Date of 1955 Social Security Number [id number] [place] [address] Taoism Non-Buddhist Marital Status Admission Date 03/31/2025 Admission Type Urgent Admitting Provider Pk Mckeon MD Attending Provider Pk Mckeon MD Department, Room/Bed [facility] 2B ICU, N238/1 Discharge Date Discharge Disposition Discharge Destination Attending Provider: Pk Mckeon MD Allergies: No Known Allergies Isolation: None Infection: None Code Status: CPR Ht: 165.1 cm (65 ) Wt: 63.8 kg (140 lb 10.5 oz) Admission Cmt: None Principal Problem: Seizure [R56.9] Active Insurance as of 03/31/2025 Primary Coverage Payor Plan Insurance Group Employer/Plan Group MEDICARE MEDICARE A & B Payor Plan Address Payor Plan Phone Number Payor Plan Fax Number Effective Dates [address] 01/11/2022 - None Entered [facility] [id number] Subscriber Name Subscriber Date Member ID REGINE ANGUIANO 1955 [id number] Emergency Contacts Supplier Quality (Rel.) Home Phone Work Phone Mobile Phone Kwasi Anguiano (Spouse) [phone] -- [phone] History & Physical No notes of this type exist for this encounter. Physical Therapy Notes (most recent note) Wendi Boswell, PT at 04/02/25 1050 Version 1 of 1 Patient Name: Regine Anguiano : 1955 Today's Date: 04/02/2025 Admit Date: 03/31/2025 Visit Dx: ICD-10-CM ICD-9-CM 1. Dysphagia, unspecified type R13.10 787.20 Patient Active Problem List Diagnosis Seizure Aspiration pneumonitis -aspiration pneumonitis versus pneumonia Acute hypoxemic respiratory failure -noted from outside hospital where she was intubated. Alcohol dependence with withdrawal delirium -presented with seizures concerning for potential alcohol withdrawal Anemia -uncertain etiology or chronicity No past medical history on file. No past surgical history on file. General Information Row Name 04/02/25 1316 Physical Therapy Time and Intention Document Type evaluation -KE Mode of Treatment physical therapy;co-treatment -KE Row Name 04/02/25 1316 General Information Patient Profile Reviewed yes -KE Prior Level of Function -- Pt limited historian. Per chart review has RW but is a limited ambulator, lives with who provides assist to bathroom, no community mobility. -KE Existing Precautions/Restrictions other (see comments);fall;seizures gonsalez, significant visual deficits (R eye>L), CIWA -KE Barriers to Rehab medically complex;previous functional deficit;cognitive status;visual deficit -KE Row Name 04/02/25 1316 Living Environment Current Living Arrangements home -KE People in Home spouse -KE Row Name 04/02/25 1316 Home Main Entrance Number of Stairs, Main Entrance two per CR -KE Row Name 04/02/25 1316 Cognition Orientation Status (Cognition) oriented x 3 -KE Row Name 04/02/25 1316 Safety Issues/Impairments Affecting Functional Mobility Safety Issues Affecting Function (Mobility) ability to follow commands;awareness of need for assistance;safety precaution awareness;safety precautions follow- through/compliance;insight into deficits/self-awareness;sequencing abilities;problem-solving;judgment -KE Impairments Affecting Function (Mobility) balance;cognition;coordination;endurance/activity tolerance;motor planning;postural/trunk control;strength;visual/perceptual -KE Cognitive Impairments, Mobility Safety/Performance attention;awareness, need for assistance;safety precaution awareness;safety precaution follow-through;insight into deficits/self-awareness;problem-solving/reasoning;sequencing abilities -KE User Lockwood (r) = Recorded By, (t) = Taken By, (c) = Cosigned By Initials Name Provider Type Wendi Flowers PT Physical Therapist Mobility Row Name 04/02/25 1319 Bed Mobility Bed Mobility supine-sit -KE Supine-Sit [place] (Bed Mobility) moderate assist (50% patient effort);2 person assist;verbal cues -KE Assistive Device (Bed Mobility) bed rails;head of bed elevated;repositioning sheet -KE Comment, (Bed Mobility) VC/TCs for sequencing -KE Row Name 04/02/25 1319 Bed-Chair Transfer Bed-Chair [place] (Transfers) maximum assist (25% patient effort);2 person assist;verbal cues -KE Assistive Device (Bed-Chair Transfers) other (see comments) B UE support -KE Comment, (Bed-Chair Transfer) attempted initial t/f w/ FWW, pt unable to sequence req return to sitand use of B UE support for stand pivot to chair -KE Row Name 04/02/25 1319 Sit-Stand Transfer Sit-Stand [place] (Transfers) moderate assist (50% patient effort);2 person assist;verbal cues-KE Assistive Device (Sit-Stand Transfers) other (see comments) B UE support -KE User Lockwood (r) = Recorded By, (t) = Taken By, (c) = Cosigned By Initials Name Provider Type Wendi Flowers PT Physical Therapist Obj/Interventions Row Name 04/02/25 1320 Range of Motion Comprehensive General Range of Motion bilateral lower extremity ROM WFL -KE Row Name 04/02/25 1320 Strength Comprehensive (MMT) General Manual Muscle Testing (MMT) Assessment lower extremity strength deficits identified -KE Comment, General Manual Muscle Testing (MMT) Assessment B LE grossly 3+/5 -KE Row Name 04/02/25 1320 Balance Balance Assessment sitting static balance;sitting dynamic balance;standing static balance;standing dynamic balance -KE Static Sitting Balance contact guard -KE Dynamic Sitting Balance minimal assist -KE Position, Sitting Balance unsupported -KE Static Standing Balance moderate assist;2-person assist -KE Dynamic Standing Balance maximum assist;2-person assist -KE Position/Device Used, Standing Balance supported -KE Balance Interventions sitting;sit to stand;supported;static;dynamic;standing -KE Comment, Balance posterior lean -KE Row Name 04/02/25 1320 Sensory Assessment (Somatosensory) Sensory Assessment (Somatosensory) unable/difficult to assess -KE User Lockwood (r) = Recorded By, (t) = Taken By, (c) = Cosigned By Initials Name Provider Type Wendi Flowers, PT Physical Therapist Goals/Plan Row Name 04/02/25 132 Bed Mobility Goal 1 (PT) Activity/Assistive Device (Bed Mobility Goal 1, PT) sit to supine/supine to sit -KE [place] Level/Cues Needed (Bed Mobility Goal 1, PT) minimum assist (75% or more patient effort) -KE Time Frame (Bed Mobility Goal 1, PT) short term goal (STG);5 days -KE Progress/Outcomes (Bed Mobility Goal 1, PT) new goal -KE Row Name 04/02/25 1329 Transfer Goal 1 (PT) Activity/Assistive Device (Transfer Goal 1, PT) xzr-ri-nxdsg/paqiu-rv-tnt;btp-cx-bgsjq/pjoha-gv-jqj-KE [place] Level/Cues Needed (Transfer Goal 1, PT) minimum assist (75% or more patient effort) -KE Time Frame (Transfer Goal 1, PT) long term care pharmacist goal (LTG);10 days -KE Progress/Outcome (Transfer Goal 1, PT) new goal -KE Row Name 04/02/25 1326 Gait Training Goal 1 (PT) Activity/Assistive Device (Gait Training Goal 1, PT) gait (walking locomotion);assistive device use;improve balance and speed;walker, rolling -KE [place] Level (Gait Training Goal 1, PT) minimum assist (75% or more patient effort) -KE Distance (Gait Training Goal 1, PT) 50 -KE Time Frame (Gait Training Goal 1, PT) senior living goal (LTG);10 days -KE Progress/Outcome (Gait Training Goal 1, PT) new goal -KE Row Name 04/02/25 1324 Therapy Assessment/Plan (PT) Planned Therapy Interventions (PT) balance training;bed mobility training;home exercise program;gait training;neuromuscular re-education;patient/family education;postural re-education;ROM (range of motion);stair training;strengthening;stretching;transfer training -KE User Lockwood (r) = Recorded By, (t) = Taken By, (c) = Cosigned By Initials Name Provider Type Wendi Flowers, PT Physical Therapist Clinical Impression Row Name 04/02/25 1321 Pain Additional Documentation Pain Scale: FACES Pre/Post-Treatment (Group) - Row Name 04/02/25 1321 Pain Scale: FACES Pre/Post-Treatment Pain: FACES Scale, Pretreatment 2-->hurts little bit -KE Posttreatment Pain Rating 2-->hurts little bit -KE Row Name 04/02/25 1321 Plan of Care Review Plan of Care Reviewed With patient -KE Outcome Evaluation PT eval complete. Pt presents with balance deficits, generalized weakness, cognitive impairments, limited safety awareness, impaired functional transfers, and decreased functional endurance warranting IPPT. Pt assisted in SPT w/ B UE support and MaxAx2. PT rec SNF, will continue to monitor progress. - Row Name 04/02/25 1321 Therapy Assessment/Plan (PT) Patient/Family Therapy Goals Statement (PT) did not state -KE Rehab Potential (PT) fair -KE Criteria for Skilled Interventions Met (PT) yes;skilled treatment is necessary;meets criteria -KE Therapy Frequency (PT) daily -KE Predicted Duration of Therapy Intervention (PT) 10 days -KE Row Name 04/02/25 1321 Vital Signs Pre Systolic BP Rehab 110 -KE Pre Treatment Diastolic BP 56 -KE Post Systolic BP Rehab 121 -KE Post Treatment Diastolic BP 60 -KE Pretreatment Heart Rate (beats/min) 64 -KE Posttreatment Heart Rate (beats/min) 71 -KE Pre SpO2 (%) 91 -KE O2 Delivery Pre Treatment room air -KE O2 Delivery Intra Treatment room air -KE Post SpO2 (%) 91 -KE O2 Delivery Post Treatment room air -KE Pre Patient Position Supine -KE Intra Patient Position Standing -KE Post Patient Position Sitting -KE Row Name 04/02/25 1321 Positioning and Restraints Pre-Treatment Position in bed -KE Post Treatment Position chair -KE In Chair notified nsg;reclined;waffle cushion;on mechanical lift sling;call light within reach;encouraged to call for assist;exit alarm on;legs elevated;heels elevated;RUE elevated;LUE elevated -KE User Lockwood (r) = Recorded By, (t) = Taken By, (c) = Cosigned By Initials Name Provider Type Wendi Flowers PT Physical Therapist Outcome Measures Row Name 04/02/25 1324 How much help from another person do you currently need... Turning from your back to your side while in flat bed without using bedrails? 3 -KE Moving from lying on back to sitting on the side of a flat bed without bedrails? 2 -KE Moving to and from a bed to a chair (including a wheelchair)? 2 -KE Standing up from a chair using your arms (e.g., wheelchair, bedside chair)? 2 -KE Climbing 3-5 steps with a railing? 1 -KE To walk in hospital room? 2 -KE AM-PAC 6 Clicks Score (PT) 12 -KE Highest Level of Mobility Goal Move to Chair/Commode-4 -KE Row Name 04/02/25 1324 Functional Assessment Outcome Measure Options AM-PAC 6 Clicks Basic Mobility (PT) - User Lockwood (r) = Recorded By, (t) = Taken By, (c) = Cosigned By Initials Name Provider Type Wendi Flowers PT Physical Therapist Physical Therapy Education Title: PT OT HYDRAULIC ENGINEER Therapies (In Progress) Topic: Physical Therapy (In Progress) Point: Mobility training (In Progress) Learning Progress Summary Patient Acceptance, E, NR by MATTY at 04/02/20251324 Point: Home exercise program (Not Started) Learner Progress: Not documented in this visit. Point: Body mechanics (In Progress) Learning Progress Summary Patient Acceptance, E, NR by MATTY at 04/02/2025 132 Point: Precautions (In Progress) Learning Progress Summary Patient Acceptance, E, NR by MATTY at 04/02/20251324 User Lockwood Initials Effective Dates Name Provider Type [facility] MATTY 04/28/23 - Wendi Boswell PT Physical Therapist PT PT Recommendation and Plan Recommended discharge disposition is based on the functional assessment performed by PT/OT/Speech therapy (as applicable) and may not reflect the medical necessity determined by your provider or services covered by an individual patient's insurance plan or patient resource. Planned Therapy Interventions (PT): balance training, bed mobility training, home exercise program,gait training, neuromuscular re-education, patient/family education, postural re-education, ROM (range of motion), stair training, strengthening, stretching, transfer training Therapy Frequency (PT): daily Outcome Evaluation: PT eval complete. Pt presents with balance deficits, generalized weakness, cognitive impairments, limited safety awareness, impaired functional transfers, and decreased functionalendurance warranting IPPT. Pt assisted in SPT w/ B UE support and MaxAx2. PT rec SNF, will continueto monitor progress. Time Calculation: PT Evaluation Complexity History, PT Evaluation Complexity: 3 or more personal factors and/or comorbidities Examination of Body Systems (PT Eval Complexity): total of 3 or more elements Clinical Presentation (PT Evaluation Complexity): evolving Clinical Decision Making (PT Evaluation Complexity): moderate complexity Overall Complexity (PT Evaluation Complexity): moderate complexity PT Charges Row Name 04/02/25 1325 Time Calculation Start Time 1050 -KE PT Received On 04/02/25 -KE PT Goal Re-Cert Due Date 04/12/25 -KE Untimed Charges PT Eval/Re-eval Minutes 52 -KE Total Minutes Untimed Charges Total Minutes 52 -KE Total Minutes 52 -KE User Lockwood (r) = Recorded By, (t) = Taken By, (c) = Cosigned By Initials Name Provider Type Wendi Flowers PT Physical Therapist Therapy Charges for Today Code Description Service Date Service Provider Modifiers Qty [id number] PT EVAL MOD COMPLEXITY 4 04/02/2025 Wendi Boswell PT GP 1 PT G-Codes Outcome Measure Options: AM-PAC 6 Clicks Basic Mobility (PT) AM-PAC 6 Clicks Score (PT): 12 PT Discharge Summary Anticipated Discharge Disposition (PT): [facility] facility Wendi Boswell PT 04/02/2025 1326 Occupational Therapy Notes (most recent note) Shelly Jones, OT at 04/02/25 1050 Patient Name: Regine Anguiano : 1955 Today's Date: 04/02/2025 Admit Date: 03/31/2025 Visit Dx: ICD-10-CM ICD-9-CM 1. Dysphagia, unspecified type R13.10 787.20 Patient Active Problem List Diagnosis Seizure Aspiration pneumonitis -aspiration pneumonitis versus pneumonia Acute hypoxemic respiratory failure -noted from outside hospital where she was intubated. Alcohol dependence with withdrawal delirium -presented with seizures concerning for potential alcohol withdrawal Anemia -uncertain etiology or chronicity No past medical history on file. No past surgical history on file. General Information Row Name 04/02/25 1117 OT Time and Intention Document Type evaluation - Mode of Treatment co-treatment;occupational therapy - Row Name 04/02/25 1117 General Information Patient Profile Reviewed yes - Prior Level of Function -- Pt limited historian. Per chart review has RW but is a limited ambulator, lives with who provides assist to bathroom, no community mobility. - Existing Precautions/Restrictions left;other (see comments) gonsalez, visual deficits - Barriers to Rehab medically complex;previous functional deficit;visual deficit - Row Name 04/02/25 1117 Living Environment Current Living Arrangements home - People in Home spouse - Row Name 04/02/25 1117 Home Main Entrance Number of Stairs, Main Entrance other (see comments) per chart review, home has 2 steps to enter - Row Name 04/02/25 1117 Stairs Within Home, Primary Number of Stairs, Within Home, Primary none - Row Name 04/02/25 1117 Cognition Orientation Status (Cognition) oriented x 3 - Row Name 04/02/25 1117 Safety Issues/Impairments Affecting Functional Mobility Safety Issues Affecting Function (Mobility) ability to follow commands;awareness of need for assistance;insight into deficits/self-awareness;safety precaution awareness;safety precautions follow-through/compliance;sequencing abilities - Impairments Affecting Function (Mobility) balance;cognition;coordination;endurance/activity tolerance;motor planning;postural/trunk control;strength - Cognitive Impairments, Mobility Safety/Performance attention;awareness, need for assistance;impulsivity;insight into deficits/self-awareness;safety precaution awareness;safety precaution follow-through;sequencing abilities - User Lockwood (r) = Recorded By, (t) = Taken By, (c) = Cosigned By Initials Name Provider Type Shelly Jones OT Occupational Therapist Mobility/ADL's Row Name 04/02/25 131 Bed Mobility Bed Mobility supine-sit - Supine-Sit [place] (Bed Mobility) moderate assist (50% patient effort);2 person assist;verbal cues - Assistive Device (Bed Mobility) bed rails;head of bed elevated;repositioning sheet - Row Name 04/02/25 131 Transfers Transfers sit-stand transfer;stand-sit transfer;bed-chair transfer - Row Name 04/02/25 131 Bed-Chair Transfer Bed-Chair [place] (Transfers) maximum assist (25% patient effort);2 person assist;verbal cues - Assistive Device (Bed-Chair Transfers) other (see comments) BUE support - Comment, (Bed-Chair Transfer) stand pivot transfer, VCs for sequencing. Required assist at hips - Row Name 04/02/251310 Sit-Stand Transfer Sit-Stand [place] (Transfers) moderate assist (50% patient effort);2 person assist;verbal cues- Assistive Device (Sit-Stand Transfers) other (see comments) BUE support - Comment, (Sit-Stand Transfer) Posterior lean in standing - Row Name 04/02/251310 Stand-Sit Transfer Stand-Sit [place] (Transfers) moderate assist (50% patient effort);2 person assist;verbal cues- Row Name 04/02/25 131 Functional Mobility Patient was able to Ambulate no, other medical factors prevent ambulation - Reason Patient was unable to Ambulate -- mod A x2 for STS from EOB, max A x2 for stand pivot transfer to chair - Row Name 04/02/25 131 Activities of Daily Living BADL Assessment/Intervention lower body dressing - Row Name 04/02/25 131 Lower Body Dressing Assessment/Training [place] Level (Lower Body Dressing) don;socks - Position (Lower Body Dressing) edge of bed sitting - User Lockwood (r) = Recorded By, (t) = Taken By, (c) = Cosigned By Initials Name Provider Type Shelly Jones OT Occupational Therapist Obj/Interventions Row Name 04/02/251316 Sensory Assessment (Somatosensory) Sensory Assessment (Somatosensory) UE sensation intact - Sensory Assessment formal testing limited d/t difficulty with sequencing and following directions - Row Name 04/02/251316 Vision Assessment/Intervention Visual Impairment/Limitations other (see comments);visual/perceptual impairments present per chart review, 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 Pt unable to identify objects duringformal vision assessment - Row Name 04/02/25 1317 Range of Motion Comprehensive General Range of Motion upper extremity range of motion deficits identified - Comment, General Range of Motion L shoulder ROM WNF, R shoulder ROM ~90 degrees. Passive B UE ROM WNL - Row Name 04/02/25 1317 Strength Comprehensive (MMT) General Manual Muscle Testing (MMT) Assessment upper extremity strength deficits identified - Comment, General Manual Muscle Testing (MMT) Assessment B UE grossly 3+/5 - Row Name 04/02/25 1317 Motor Skills Motor Skills coordination - Coordination gross motor deficit;moderate impairment formal assessment limited d/t vision impairment - Row Name 04/02/25 1317 Balance Balance Assessment sitting static balance;sitting dynamic balance;standing static balance;standing dynamic balance - Static Sitting Balance contact guard - Dynamic Sitting Balance minimal assist - Position, Sitting Balance unsupported - Static Standing Balance moderate assist;2-person assist - Dynamic Standing Balance maximum assist;2-person assist - Position/Device Used, Standing Balance supported;other (see comments) BUE support - Balance Interventions sitting;standing;sit to stand;supported;static;dynamic - User Lockwood (r) = Recorded By, (t) = Taken By, (c) = Cosigned By Initials Name Provider Type Shelly Jones OT Occupational Therapist Goals/Plan Row Name 04/02/25 1320 Bed Mobility Goal 1 (OT) Activity/Assistive Device (Bed Mobility Goal 1, OT) sit to supine/supine to sit - [place] Level/Cues Needed (Bed Mobility Goal 1, OT) contact guard required - Time Frame (Bed Mobility Goal 1, OT) senior living goal (LTG);10 days - Progress/Outcomes (Bed Mobility Goal 1, OT) new goal - Row Name 04/02/25 1328 Transfer Goal 1 (OT) Activity/Assistive Device (Transfer Goal 1, OT) udy-iw-dprxs/alyey-tf-yck;ldx-un-vosav/dquiv-rv-slm- [place] Level/Cues Needed (Transfer Goal 1, OT) minimum assist (75% or more patient effort) - Time Frame (Transfer Goal 1, OT) short term goal (STG);5 days - Progress/Outcome (Transfer Goal 1, OT) new goal - Row Name 04/02/25 1324 Grooming Goal 1 (OT) Activity/Device (Grooming Goal 1, OT) hair care;oral care;wash face, hands - [place] (Grooming Goal 1, OT) minimum assist (75% or more patient effort) - Time Frame (Grooming Goal 1, OT) senior living goal (LTG);10 days -CH Progress/Outcome (Grooming Goal 1, OT) new goal - Row Name 04/02/25 1328 Therapy Assessment/Plan (OT) Planned Therapy Interventions (OT) activity tolerance training;BADL retraining;functional balance retraining;occupation/activity based interventions;patient/caregiver education/training;ROM/therapeutic exercise;strengthening exercise;transfer/mobility retraining;adaptive equipment training - User Lockwood (r) = Recorded By, (t) = Taken By, (c) = Cosigned By Initials Name Provider Type Shelly Jones OT Occupational Therapist Clinical Impression Row Name 04/02/25 1324 Pain Scale: FACES Pre/Post-Treatment Pain: FACES Scale, Pretreatment 2-->hurts little bit - Posttreatment Pain Rating 2-->hurts little bit - Row Name 04/02/25 1328 Plan of Care Review Outcome Evaluation OT eval complete. Pt presents with deficits including generalized weakness, decreased functional mobility, decreased activity tolerance, and decreased balance warranting IPOT services. Stand pivot transfer with max A x2, completed sit to stand with mod A x2. Rec d/c to SNF. - Row Name 04/02/25 1328 Therapy Assessment/Plan (OT) Patient/Family Therapy Goal Statement (OT) Return home - Rehab Potential (OT) fair - Criteria for Skilled Therapeutic Interventions Met (OT) skilled treatment is necessary;yes - Therapy Frequency (OT) daily - Predicted Duration of Therapy Intervention (OT) 10 days - Row Name 04/02/25 132 Therapy Plan Review/Discharge Plan (OT) Anticipated Discharge Disposition (OT) [facility] facility - Row Name 04/02/25 1323 Vital Signs Pre Systolic BP Rehab 110 -CH Pre Treatment Diastolic BP 56 -CH Post Systolic BP Rehab 121 -CH Post Treatment Diastolic BP 60 -CH Pretreatment Heart Rate (beats/min) 64 -CH Posttreatment Heart Rate (beats/min) 71 -CH Pre SpO2 (%) 91 -CH O2 Delivery Pre Treatment room air -CH Post SpO2 (%) 91 -CH O2 Delivery Post Treatment room air -CH Pre Patient Position Supine -CH Intra Patient Position Standing -CH Post Patient Position Sitting -CH Row Name 04/02/25 1325 Positioning and Restraints Pre-Treatment Position in bed -CH Post Treatment Position chair -CH User Lockwood (r) = Recorded By, (t) = Taken By, (c) = Cosigned By Initials Name Provider Type Shelly Vital, DARNELL Occupational Therapist Outcome Measures Row Name 04/02/25 1332 How much help from another is currently needed... Putting on and taking off regular lower body clothing? 1 -CH Bathing (including washing, rinsing, and drying) 1 -CH Toileting (which includes using toilet bed monreal or urinal) 2 -CH Putting on and taking off regular upper body clothing 2 -CH Taking care of personal grooming (such as brushing teeth) 2 -CH Eating meals 2 -CH AM-PAC 6 Clicks Score (OT) 10 - Row Name 04/02/25 1324 How much help from another person do you currently need... Turning from your back to your side while in flat bed without using bedrails? 3 -KE Moving from lying on back to sitting on the side of a flat bed without bedrails? 2 -KE Moving to and from a bed to a chair (including a wheelchair)? 2 -KE Standing up from a chair using your arms (e.g., wheelchair, bedside chair)? 2 -KE Climbing 3-5 steps with a railing? 1 -KE To walk in hospital room? 2 -KE AM-PAC 6 Clicks Score (PT) 12 -KE Highest Level of Mobility Goal Move to Chair/Commode-4 -KE Row Name 04/02/25 1332 04/02/25 1324 Functional Assessment Outcome Measure Options AM-PAC 6 Clicks Daily Activity (OT) -CH AM-PAC 6 Clicks Basic Mobility (PT) -KE User Lockwood (r) = Recorded By, (t) = Taken By, (c) = Cosigned By Initials Name Provider Type Wendi Flowers, PT Physical Therapist Shelly Vital OT Occupational Therapist Occupational Therapy Education Title: PT OT HYDRAULIC ENGINEER Therapies (In Progress) Topic: Occupational Therapy (In Progress) Point: ADL training (In Progress) Learning Progress Summary Patient Acceptance, E,TB, NR by at 04/02/2025 1050 Point: Precautions (In Progress) Learning Progress Summary Patient Acceptance, E,TB, NR by at 04/02/2025 1050 Point: Body mechanics (In Progress) Learning Progress Summary Patient Acceptance, E,TB, NR by at 04/02/2025 1050 User Lockwood Initials Effective Dates Name Provider Type [facility] 03/18/25 - Shelly Jones OT Occupational Therapist OT OT Recommendation and Plan Recommended discharge disposition is based on the functional assessment performed by PT/OT/Speech therapy (as applicable) and may not reflect the medical necessity determined by your provider or services covered by an individual patient's insurance plan or patient resource. Planned Therapy Interventions (OT): activity tolerance training, BADL retraining, functional balance retraining, occupation/activity based interventions, patient/caregiver education/training, ROM/therapeutic exercise, strengthening exercise, transfer/mobility retraining, adaptive equipment training Therapy Frequency (OT): daily Plan of Care Review Outcome Evaluation: OT eval complete. Pt presents with deficits including generalized weakness, decreased functional mobility, decreased activity tolerance, and decreased balance warranting IPOT services. Stand pivot transfer with max A x2, completed sit to stand with mod A x2. Rec d/c to SNF. Time Calculation: Evaluation Complexity (OT) Review Occupational Profile/Medical/Therapy History Complexity: expanded/moderate complexity Assessment, Occupational Performance/Identification of Deficit Complexity: 3-5 performance deficits Clinical Decision Making Complexity (OT): detailed assessment/moderate complexity Overall Complexity of Evaluation (OT): moderate complexity Time Calculation- OT Row Name 04/02/25 1337 Time Calculation- OT OT Start Time 1050 -CH OT Received On 04/02/25 - OT Goal Re-Cert Due Date 04/12/25 -CH Untimed Charges OT Eval/Re-eval Minutes 48 -CH Total Minutes Untimed Charges Total Minutes 48 -CH Total Minutes 48 -CH User Lockwood (r) = Recorded By, (t) = Taken By, (c) = Cosigned By Initials Name Provider Type Shelly Jones, OT Occupational Therapist Therapy Charges for Today Code Description Service Date Service Provider Modifiers Qty [id number] HC OT EVAL MOD COMPLEXITY 4 04/02/2025 Shelly Jones OT GO 1 Shelly Jones OT 04/02/2025 9605 Speech Language Pathology Notes (most recent note) Av Varghese MS CCC-HYDRAULIC ENGINEER at 04/01/25 1615 Acute Care - Speech Language Pathology Swallow Initial Evaluation [facility] Clinical Swallow Evaluation Patient Name: Regine Anguiano : 1955 Today's Date: 04/01/2025 Admit Date: 03/31/2025 Visit Dx: ICD-10-CM ICD-9-CM 1. Dysphagia, unspecified type R13.10 787.20 Problem List Patient Active Problem List Diagnosis Seizure Aspiration pneumonitis -aspiration pneumonitis versus pneumonia Acute hypoxemic respiratory failure -noted from outside hospital where she was intubated. Alcohol dependence with withdrawal delirium -presented with seizures concerning for potential alcohol withdrawal Anemia -uncertain etiology or chronicity No past medical history on file. No past surgical history on file. HYDRAULIC ENGINEER Recommendation and Plan Recommended discharge disposition is based on the functional assessment performed by PT/OT/Speech therapy (as applicable) and may not reflect the medical necessity determined by your provider or services covered by an individual patient's insurance plan or patient resource. HYDRAULIC ENGINEER Swallowing Diagnosis: oral dysphagia, R/O pharyngeal dysphagia (04/01/251544) HYDRAULIC ENGINEER Diet Recommendation: NPO (04/01/251544) Recommended Precautions and Strategies: upright posture during/after eating, general aspiration precautions (04/01/251544) HYDRAULIC ENGINEER Rec. for Method of Medication Administration: meds whole, with puree (essential meds only) (04/01/251544) Monitor for Signs of Aspiration: yes, notify HYDRAULIC ENGINEER if any concerns (04/01/251544) Recommended Diagnostics: reassess via clinical swallow evaluation (04/01/251544) Swallow Criteria for Skilled Therapeutic Interventions Met: demonstrates skilled criteria (545) Anticipated Discharge Disposition (HYDRAULIC ENGINEER): [facility] facility (04/01/251544) Rehab Potential/Prognosis, Swallowing: adequate, monitor progress closely (04/01/251544) Oral Care Recommendations: Oral Care BID/PRN, Suction toothbrush (04/01/251544) Demonstrates Need for Referral to Another Service: speech therapy, other (see comments) (Pt would benefit from full [facility] eval) (04/01/25 6256) Progress: no change SWALLOW EVALUATION (Last 72 Hours) HYDRAULIC ENGINEER Adult Swallow Evaluation Row Name 04/01/25 4605 Rehab Evaluation Document Type evaluation -RS Subjective Information no complaints -RS Patient Observations alert -RS Patient/Family/Caregiver Comments/Observations Pt is very confused, in constant motion in bed -RS Patient Effort fair -RS Symptoms Noted During/After Treatment none -RS Oral Care oral rinse provided -RS General Information Patient Profile Reviewed yes -RS Pertinent History Of Current Problem Pt is a 70 yoF w PMHx ETOH abuse who presented to OSH after being found down unresponsive. Pt with witnessed seizure activity and intubated. She was transferred to [facility] for higher level of care. SDH found on MRI per [facility] notes, no indication for surgical intervention. Pt was extubated at approximately 1500 today. 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 -RS Precautions/Limitations, Hearing hearing impairment, bilaterally;difficult to assess -RS Prior Level of Function-Communication unknown -RS Prior Level of Function-Swallowing unknown;other (see comments) no previous HYDRAULIC ENGINEER hx, pt u/a to indicate -RS Plans/Goals Discussed with patient -RS Pain Additional Documentation Pain Scale: FACES Pre/Post-Treatment (Group) -RS Pain Scale: FACES Pre/Post-Treatment Pain: FACES Scale, Pretreatment 2-->hurts little bit -RS Posttreatment Pain Rating 2-->hurts little bit -RS Oral Motor Structure and Function Dentition Assessment teeth are in poor condition;missing teeth -RS Secretion Management wet vocal quality -RS Mucosal Quality sticky -RS Volitional Swallow unable to elicit -RS Volitional Cough weak;reduced respiratory support -RS Oral Musculature and Cranial Nerve Assessment Oral Motor General Assessment generalized oral motor weakness -RS General Eating/Swallowing Observations Respiratory Support Currently in Use nasal cannula -RS Eating/Swallowing Skills fed by HYDRAULIC ENGINEER;unable to perform self-feeding -RS Positioning During Eating upright in bed -RS Utensils Used spoon;cup;straw -RS Consistencies Trialed thin liquids;ice chips;pureed -RS Respiratory Respiratory Status WFL -RS Date of Intubation 03/31-04/01 -RS Clinical Swallow Eval Oral Prep Phase impaired -RS Oral Transit impaired -RS Oral Residue WFL -RS Pharyngeal Phase suspected pharyngeal impairment -RS Esophageal Phase unremarkable -RS Oral Prep Concerns Oral Prep Concerns incomplete or weak lip closure around spoon -RS Incomplete or Weak Lip Closure Around Spoon all consistencies -RS Oral Prep Concerns, Comment u/a to achieve closure around straw or pull thins -RS Oral Transit Concerns Oral Transit Concerns delayed initiation of bolus transit -RS Delayed Intiation of Bolus Transit all consistencies -RS Pharyngeal Phase Concerns Pharyngeal Phase Concerns multiple swallows;wet vocal quality;cough;throat clear -RS Wet Vocal Quality thin;other (see comments) and ice -RS Multiple Swallows thin;other (see comments) and ice -RS Cough thin;other (see comments) and ice -RS Throat Clear thin;other (see comments) and ice -RS Pharyngeal Phase Concerns, Comment Voice is essentially aphonic and coupled with mental status, intelligibility is low. Pt may have essential meds in puree, HYDRAULIC ENGINEER will re-assess and determine need for instrumental prior to PO diet -RS Swallowing Quality of Life Assessment Education and counseling provided Signs of aspiration;Silent aspiration -RS HYDRAULIC ENGINEER Evaluation Clinical Impression HYDRAULIC ENGINEER Swallowing Diagnosis oral dysphagia;R/O pharyngeal dysphagia -RS Functional Impact risk of aspiration/pneumonia -RS Rehab Potential/Prognosis, Swallowing adequate, monitor progress closely -RS Swallow Criteria for Skilled Therapeutic Interventions Met demonstrates skilled criteria -RS Recommendations HYDRAULIC ENGINEER Diet Recommendation NPO -RS Recommended Diagnostics reassess via clinical swallow evaluation -RS Recommended Precautions and Strategies upright posture during/after eating;general aspiration precautions -RS Oral Care Recommendations Oral Care BID/PRN;Suction toothbrush -RS HYDRAULIC ENGINEER Rec. for Method of Medication Administration meds whole;with puree essential meds only -RS Monitor for Signs of Aspiration yes;notify HYDRAULIC ENGINEER if any concerns -RS Anticipated Discharge Disposition (HYDRAULIC ENGINEER) [facility] facility -RS Demonstrates Need for Referral to Another Service speech therapy;other (see comments) Pt would benefit from full [facility] eval -RS User Lockwood (r) = Recorded By, (t) = Taken By, (c) = Cosigned By Initials Name Effective Dates RS Av Varghese MS [facility]-HYDRAULIC ENGINEER 02/24/23 - EDUCATION The patient has been educated in the following areas: Dysphagia (Swallowing Impairment) Oral Care/Hydration NPO rationale. Time Calculation: Time Calculation- HYDRAULIC ENGINEER Row Name 04/01/25 1611 Time Calculation- HYDRAULIC ENGINEER HYDRAULIC ENGINEER Start Time 1545 -RS HYDRAULIC ENGINEER Received On 04/01/25 -RS Untimed Charges [id number] Eval Oral Pharyng Swallow Minutes 40 -RS Total Minutes Untimed Charges Total Minutes 40 -RS Total Minutes 40 -RS User Lockwood (r) = Recorded By, (t) = Taken By, (c) = Cosigned By Initials Name Provider Type RS Av Varghese MS CCC-HYDRAULIC ENGINEER Speech and Language Pathologist Therapy Charges for Today Code Description Service Date Service Provider Modifiers Qty [id number] HC ST EVAL ORAL PHARYNG SWALLOW 3 04/01/2025 Av Varghese MS CCC-KAREN GN 1 MS JAY JAY Barnes 04/01/2025 1614 documented in this encounter Medications at Time of Discharge acetaminophen (TYLENOL) 325 MG tablet Take 2 tablets by mouth 3 times a day. 04/09/2025 bisacodyl (DULCOLAX) 10 MG suppository Insert 1 suppository into the rectum Daily As Needed for Constipation (Use if bisacodyl oral is ineffective). 04/09/2025 bisacodyl (DULCOLAX) 5 MG EC tablet Take 1 tablet by mouth Daily As Needed for Constipation (Use if polyethylene glycol is ineffective). 04/09/2025 Diclofenac Sodium (VOLTAREN) 1 % gel gel Apply 2 Applications topically to the appropriate area as directed 3 (Three) Times a Day. 04/09/2025 enoxaparin sodium (LOVENOX) 40 MG/0.4ML solution prefilled syringe syringeIndication s:VTE Prophylaxis Inject 0.4 mL under the skin into the appropriate area as directed Daily. Indications: Prevention of Unwanted Clot in Veins 04/09/2025 folic acid (FOLVITE) 1 MG tablet Take 1 tablet by mouth Daily. 04/09/2025 levETIRAcetam (KEPPRA) 250 MG tablet Take 1 tablet by mouth 2 (Two) Times a Day. 04/09/2025 multivitamin (THERAGRAN) tablet tablet Take 1 tablet by mouth Daily. 04/09/2025 nicotine (NICODERM CQ) 21 MG/24HR patch Place 1 patch on the skin as directed by provider Daily. 04/09/2025 pantoprazole (PROTONIX) 40 MG EC tablet Take 1 tablet by mouth Every Morning Before Breakfast. 04/09/2025 polyethylene glycol (MIRALAX) 17 g packet Take 17 g by mouth Daily As Needed (Use if senna-docusate is ineffective). 04/09/2025 sennosides-docusa te (PERICOLACE) 8.6-50 MG per tablet Take 2 tablets by mouth 2 (Two) Times a Day. 04/09/2025 thiamine (VITAMIN B1) 100 MG tablet Take 1 tablet by mouth Daily. 04/09/2025 HYDROcodone-aceta minophen (NORCO) 5-325 MG per tabletIndications :Acute pain of right shoulder Take 1 tablet by mouth Every 4 (Four) Hours As Needed for Moderate Pain for up to 8 days. 04/09/2025 documented as of this encounter Progress Notes * Jagruti Goins MD - 04/08/2025 9:17 PM EDT Images from the original note were not included. [facility] Medicine Services PROGRESS NOTE Patient Name: Regine Anguiano : 1955 Date of Admission: 03/31/2025 Primary Care Physician: Provider, No Known Subjective Subjective CC: seizure HPI: patient still weak but overall feels much better , eating more Objective Objective Vital Signs: Temp: [97.4 ??F (36.3 ??C)-98.4 ??F (36.9 ??C)] 97.4 ??F (36.3 ??C) Resp: [16-18] 16 BP: (140-163)/(80-97) 163/97 Physical Exam: Gen: thin, awake conversant, eating breakfast Neuro: alert , clear speech, coarse tremor. HEENT: NC/AT Neck: Supple, no LAD Heart RRR Abd: Soft, nontender, Extrem: No c/c/e Results Reviewed: LAB RESULTS: Lab 04/06/25 0907 04/03/25 0349 04/02/25 0810 WBC 2.94* 2.76* 4.55 HEMOGLOBIN 10.4* 9.3* 9.8* HEMATOCRIT 31.4* 28.6* 30.7* PLATELETS 129* 68* 60* NEUTROS ABS 1.36* -- -- IMMATURE GRANS (ABS) 0.01 -- -- LYMPHS ABS 1.13 -- -- MONOS ABS 0.36 -- -- EOS ABS 0.06 -- -- MCV 90.5 96.6 96.5 Lab 04/06/25 1913 04/06/25 0907 04/03/2534804/02/25 0810 SODIUM -- 139 138 140 POTASSIUM 4.1 3.2* 3.8 3.9 CHLORIDE -- 105 106 110* CO2 -- 23.2 22.7 21.6* ANION GAP -- 10.8 9.3 8.4 BUN -- 7.6* 7.6* 9.9 CREATININE -- 0.73 0.79 0.78 EGFR -- 89.7 81.6 82.9 GLUCOSE -- 116* 114* 103* CALCIUM -- 9.3 9.0 9.5 MAGNESIUM -- -- 2.0 1.7 PHOSPHORUS -- -- 3.2 3.6 Lab 04/06/25 0907 TOTAL PROTEIN 6.8 ALBUMIN 3.5 GLOBULIN 3.3 ALT (SGPT) 6 AST (SGOT) 20 BILIRUBIN 0.7 ALK PHOS 145* Brief Urine Lab Results (Last result in the past 365 days) Color Clarity Blood Leuk Est Nitrite Protein CREAT Urine HCG 03/31/25 1133 Yellow Clear Small (1+) Small (1+) Negative 100 mg/dL (2+) Microbiology Results Abnormal None HYDRAULIC ENGINEER FEES - Fiberoptic Endo Eval Swallow Result Date: 04/07/2025 This procedure was auto-finalized with no dictation required. I have personally reviewed the therapy plans: [x] PT/OT/ ST Therapy Plans Current medications: Scheduled Meds:acetaminophen, 650 mg, Oral, TID enoxaparin sodium, 40 mg, Subcutaneous, Q24H folic acid, 1 mg, Oral, Daily levETIRAcetam, 250 mg, Oral, BID multivitamin, 1 tablet, Oral, Daily nicotine, 1 patch, Transdermal, Q24H pantoprazole, 40 mg, Oral, QAM AC senna-docusate sodium, 2 tablet, Oral, BID sodium chloride, 10 mL, Intravenous, Q12H thiamine, 100 mg, Oral, Daily Continuous Infusions: PRN Meds:. senna-docusate sodium AND polyethylene glycol AND bisacodyl AND bisacodyl Calcium Replacement - Follow Nurse / BPA Driven Protocol dextrose dextrose glucagon (human recombinant) HYDROcodone-acetaminophen Magnesium Cardiology Dose Replacement - Follow Nurse / BPA Driven Protocol nitroglycerin OLANZapine Phosphorus Replacement - Follow Nurse / BPA Driven Protocol Potassium Replacement - Follow Nurse / BPA Driven Protocol sodium chloride sodium chloride Assessment & Plan Assessment & Plan Active Hospital Problems Diagnosis POA Seizure [R56.9] Yes Aspiration pneumonitis -aspiration pneumonitis versus pneumonia [J69.0] Yes Acute hypoxemic respiratory failure -noted from outside hospital where she was intubated. [J96.01] Yes Alcohol dependence with withdrawal delirium -presented with seizures concerning for potential alcohol withdrawal [F10.231] Yes Anemia -uncertain etiology or chronicity [D64.9] Yes Resolved Hospital Problems No resolved problems to display. Brief Hospital Course to date: Regine Anguiano is a 70 y.o. female w history of tob and etoh abuse, found unresponsive on floor at home, reportedly next to an empty vodka bottle; she had witnessed seizures en route to [facility] ED, was given keppra and benzodiazepeines at [facility]SH ED and was intubated and transferred to [facility] ICU. Seizures, likely from ETOH withdrawal Encephalopathy resolving -- Neurology following, have decreased Keppra dose and will see as needed - Librium stopped - No driving x 90 days - unclear neuro baseline; reportedly has a long history of ETOH abuse and poor self care. Respiratory failure resolved Pancytopenia - likely from cirrhosis though no liver imaging available. - Albumin 3.5. Alcohol abuse. - Thiamine, folic acid, and multivitamin ongoing Dysphagia -s/p FEES 04/07- only mild Weakness - reportedly has not left home in years - SNF if amenable Expected Discharge Location and Transportation: tbd Expected Discharge tbd Expected Discharge Date: 04/10/2025; Expected Discharge Time: VTE Prophylaxis: Pharmacologic VTE prophylaxis orders are present. AM-PAC 6 Clicks Score (PT): 7 (04/08/25 1600) CODE STATUS: Code Status and Medical Interventions: CPR (Attempt to Resuscitate); Full Support Ordered at: 03/31/251945 Code Status (Patient has no pulse and is not breathing): CPR (Attempt to Resuscitate) Medical Interventions (Patient has pulse or is breathing): Full Support Jagruti Goins MD 04/08/25 * Jagruti Goins MD - 04/07/2025 8:30 AM EDT Images from the original note were not included. [facility] Medicine Services PROGRESS NOTE Patient Name: Regine Anguiano : 1955 Date of Admission: 03/31/2025 Primary Care Physician: Provider, No Known Subjective Subjective CC: unresponsive HPI: patient still weak but overall feels much better Objective Objective Vital Signs: Temp: [97.4 ??F (36.3 ??C)-98.4 ??F (36.9 ??C)] 97.4 ??F (36.3 ??C) Heart Rate: [73] 73 Resp: [16] 16 BP: (139-165)/(80-95) 165/95 Physical Exam: Gen: thin, awake conversant, eating pudding vigorously Neuro: alert , clear speech, coarse tremor. HEENT: NC/AT Neck: Supple, no LAD Heart RRR Abd: Soft, nontender, Extrem: No c/c/e Results Reviewed: LAB RESULTS: Lab 04/06/25 0907 04/03/25 0349 04/02/25 0810 04/01/25 0101 WBC 2.94* 2.76* 4.55 10.92* HEMOGLOBIN 10.4* 9.3* 9.8* 10.8* HEMATOCRIT 31.4* 28.6* 30.7* 32.5* PLATELETS 129* 68* 60* 102* NEUTROS ABS 1.36* -- -- 7.42* IMMATURE GRANS (ABS) 0.01 -- -- 0.06* LYMPHS ABS 1.13 -- -- 2.22 MONOS ABS 0.36 -- -- 1.01* EOS ABS 0.06 -- -- 0.17 MCV 90.5 96.6 96.5 95.0 Lab 04/06/25 1913 04/06/25 0907 04/03/25 0349 04/02/25 0810 04/01/25 01003/31/25 1204 SODIUM -- 139 138 140 137 137 POTASSIUM 4.1 3.2* 3.8 3.9 4.6 3.6 CHLORIDE -- 105 106 110* 104 100 CO2 -- 23.2 22.7 21.6* 20.4* 23.3 ANION GAP -- 10.8 9.3 8.4 12.6 13.7 BUN -- 7.6* 7.6* 9.9 12.1 14.5 CREATININE -- 0.73 0.79 0.78 0.78 0.74 EGFR -- 89.7 81.6 82.9 82.9 88.3 GLUCOSE -- 116* 114* 103* 137* 112* CALCIUM -- 9.3 9.0 9.5 9.1 9.5 MAGNESIUM -- -- 2.0 1.7 3.0* 1.3* PHOSPHORUS -- -- 3.2 3.6 3.3 3.2 HEMOGLOBIN A1C -- -- -- -- -- 5.33 TSH -- -- -- -- -- 4.410* Lab 04/06/25 0907 04/01/25 01003/31/25 1204 TOTAL PROTEIN 6.8 6.0 7.0 ALBUMIN 3.5 3.5 3.9 GLOBULIN 3.3 2.5 3.1 ALT (SGPT) 6 21 23 AST (SGOT) 20 42* 41* BILIRUBIN 0.7 0.8 1.1 ALK PHOS 145* 139* 158* Lab 03/31/25 1204 PROBNP 878.0 Lab 03/31/25 1522 03/31/25 1204 IRON -- 117 IRON SATURATION (TSAT) -- 27 TIBC -- 432 TRANSFERRIN -- 290 FERRITIN -- 45.20 FOLATE >20.00 -- VITAMIN B 12 345 -- ABO TYPING A A RH TYPING Positive Positive ANTIBODY SCREEN Negative -- Lab 04/01/25 0340 03/31/25 1112 PH, ARTERIAL 7.416 7.453* PCO2, ARTERIAL 34.0* 34.5* PO2 ART 87.7 496.0* FIO2 30 100 HCO3 ART 21.9 24.1 BASE EXCESS ART -2.2* 0.5 CARBOXYHEMOGLOBIN 1.6 1.2 Brief Urine Lab Results (Last result in the past 365 days) Color Clarity Blood Leuk Est Nitrite Protein CREAT Urine HCG 03/31/25 1133 Yellow Clear Small (1+) Small (1+) Negative 100 mg/dL (2+) Microbiology Results Abnormal None XR Shoulder 2+ View Right Result Date: 04/06/2025 XR SHOULDER 2+ VW RIGHT Date of Exam: 04/06/2025 11:54 AM EDT Indication: pain after a fall. Comparison: None available. Findings: No acute fracture or traumatic malalignment. No high-grade narrowingof the subacromial space. No acute findings in the partially imaged right chest. There is a bandlike linear opacity in the mid/lower right lung which may reflect atelectasis or scarring or less likely pneumonia. Impression: Impression: No acute fracture or traumatic malalignment. There is a bandlike linear opacity in the mid/lower right lung which may reflect atelectasis or scarring or less likely pneumonia.Correlate with chest x-ray. Electronically Signed: Shakir Trinh MD 04/06/2025 12:46 PM EDT Workstation ID: [id number] I have personally reviewed the therapy plans: [x] PT/OT/ ST Therapy Plans Current medications: Scheduled Meds:acetaminophen, 650 mg, Oral, TID enoxaparin sodium, 40 mg, Subcutaneous, Q24H folic acid, 1 mg, Oral, Daily insulin lispro, 0-7 Units, Subcutaneous, 4x Daily With Meals & Nightly levETIRAcetam, 250 mg, Oral, BID multivitamin, 1 tablet, Oral, Daily nicotine, 1 patch, Transdermal, Q24H pantoprazole, 40 mg, Oral, QAM AC senna-docusate sodium, 2 tablet, Oral, BID sodium chloride, 10 mL, Intravenous, Q12H thiamine, 100 mg, Oral, Daily Continuous Infusions: PRN Meds:. senna-docusate sodium AND polyethylene glycol AND bisacodyl AND bisacodyl Calcium Replacement - Follow Nurse / BPA Driven Protocol dextrose dextrose glucagon (human recombinant) Magnesium Cardiology Dose Replacement - Follow Nurse / BPA Driven Protocol nitroglycerin OLANZapine Phosphorus Replacement - Follow Nurse / BPA Driven Protocol Potassium Replacement - Follow Nurse / BPA Driven Protocol sodium chloride sodium chloride Assessment & Plan Assessment & Plan Active Hospital Problems Diagnosis POA Seizure [R56.9] Yes Aspiration pneumonitis -aspiration pneumonitis versus pneumonia [J69.0] Yes Acute hypoxemic respiratory failure -noted from outside hospital where she was intubated. [J96.01] Yes Alcohol dependence with withdrawal delirium -presented with seizures concerning for potential alcohol withdrawal [F10.231] Yes Anemia -uncertain etiology or chronicity [D64.9] Yes Resolved Hospital Problems No resolved problems to display. Brief Hospital Course to date: Regine Anguiano is a 70 y.o. female w history of tob and etoh abuse, found unresponsive on floor at home, reportedly next to an empty vodka bottle; she had witnessed seizures en route to [facility]SH ED, was given keppra and benzodiazepeines at OSH ED and was intubated and transferred to [facility] ICU. Seizures, likely from ETOH withdrawal encephalopathic - got keppra at OSH - Neurology following, have decreased Keppra dose and will see as needed - Librium stopped - No driving x 90 days - unclear neuro baseline; reportedly has a long history of ETOH abuse and poor self care. Respiratory failure resolved Pancytopenia - likely from cirrhosis though no liver imaging available. - Albumin 3.5. -- worsening, will repeat Alcohol abuse. - Thiamine, folic acid, and multivitamin ongoing Dysphagia -s/p FEES 04/07- only mild Weakness - reportedly has not left home in years - SNF if amenable Expected Discharge Location and Transportation: tbd Expected Discharge tbd Expected Discharge Date: 04/08/2025; Expected Discharge Time: VTE Prophylaxis: Pharmacologic VTE prophylaxis orders are present. AM-PAC 6 Clicks Score (PT): 17 (04/06/251999) CODE STATUS: Code Status and Medical Interventions: CPR (Attempt to Resuscitate); Full Support Ordered at: 03/31/251945 Code Status (Patient has no pulse and is not breathing): CPR (Attempt to Resuscitate) Medical Interventions (Patient has pulse or is breathing): Full Support Jagruti Goins MD 04/07/25 * Jagruti Goins MD - 04/06/2025 9:23 AM EDT Images from the original note were not included. [facility] Medicine Services PROGRESS NOTE Patient Name: Regine Anguiano : 1955 Date of Admission: 03/31/2025 Primary Care Physician: Provider, No Known Subjective Subjective CC: unresponsive HPI: patient still weak but overall feels much better Objective Objective Vital Signs: Temp: [97.5 ??F (36.4 ??C)-98.5 ??F (36.9 ??C)] 98.4 ??F (36.9 ??C) Heart Rate: [75-88] 82 Resp: [16-18] 16 BP: (130-154)/(78-91) 133/87 Physical Exam: Gen: thin, awake conversant Neuro: alert , clear speech, coarse tremor. HEENT: NC/AT Neck: Supple, no LAD Heart RRR Abd: Soft, nontender, Extrem: No c/c/e Results Reviewed: LAB RESULTS: Lab 04/06/25 0907 04/03/25 0349 04/02/25 0810 04/01/25 0101 03/31/25 1204 WBC 2.94* 2.76* 4.55 10.92* 5.94 HEMOGLOBIN 10.4* 9.3* 9.8* 10.8* 10.5* HEMATOCRIT 31.4* 28.6* 30.7* 32.5* 31.2* PLATELETS 129* 68* 60* 102* 75* NEUTROS ABS 1.36* -- -- 7.42* 4.61 IMMATURE GRANS (ABS) 0.01 -- -- 0.06* 0.03 LYMPHS ABS 1.13 -- -- 2.22 0.95 MONOS ABS 0.36 -- -- 1.01* 0.32 EOS ABS 0.06 -- -- 0.17 0.02 MCV 90.5 96.6 96.5 95.0 89.9 PROCALCITONIN -- -- -- -- 0.35* LACTATE -- -- -- -- 2.0 Lab 10/22/25 0349 04/02/25 0810 04/01/25 0102 03/31/25 1204 SODIUM 138 140 137 137 POTASSIUM 3.8 3.9 4.6 3.6 CHLORIDE 106 110* 104 100 CO2 22.7 21.6* 20.4* 23.3 ANION GAP 9.3 8.4 12.6 13.7 BUN 7.6* 9.9 12.1 14.5 CREATININE 0.79 0.78 0.78 0.74 EGFR 81.6 82.9 82.9 88.3 GLUCOSE 114* 103* 137* 112* CALCIUM 9.0 9.5 9.1 9.5 MAGNESIUM 2.0 1.7 3.0* 1.3* PHOSPHORUS 3.2 3.6 3.3 3.2 HEMOGLOBIN A1C -- -- -- 5.33 TSH -- -- -- 4.410* Lab 04/01/25 0102 03/31/25 1204 TOTAL PROTEIN 6.0 7.0 ALBUMIN 3.5 3.9 GLOBULIN 2.5 3.1 ALT (SGPT) 21 23 AST (SGOT) 42* 41* BILIRUBIN 0.8 1.1 ALK PHOS 139* 158* Lab 03/31/25 1204 PROBNP 878.0 Lab 03/31/25 1522 03/31/25 1204 IRON -- 117 IRON SATURATION (TSAT) -- 27 TIBC -- 432 TRANSFERRIN -- 290 FERRITIN -- 45.20 FOLATE >20.00 -- VITAMIN B 12 345 -- ABO TYPING A A RH TYPING Positive Positive ANTIBODY SCREEN Negative -- Lab 04/01/25 0340 03/31/25 1112 PH, ARTERIAL 7.416 7.453* PCO2, ARTERIAL 34.0* 34.5* PO2 ART 87.7 496.0* FIO2 30 100 HCO3 ART 21.9 24.1 BASE EXCESS ART -2.2* 0.5 CARBOXYHEMOGLOBIN 1.6 1.2 Brief Urine Lab Results (Last result in the past 365 days) Color Clarity Blood Leuk Est Nitrite Protein CREAT Urine HCG 03/31/25 1133 Yellow Clear Small (1+) Small (1+) Negative 100 mg/dL (2+) Microbiology Results Abnormal None No radiology results from the last 24 hrs I have personally reviewed the therapy plans: [x] PT/OT/ ST Therapy Plans Current medications: Scheduled Meds:enoxaparin sodium, 40 mg, Subcutaneous, Q24H folic acid, 1 mg, Oral, Daily insulin lispro, 0-7 Units, Subcutaneous, 4x Daily With Meals & Nightly levETIRAcetam, 250 mg, Oral, BID multivitamin, 1 tablet, Oral, Daily nicotine, 1 patch, Transdermal, Q24H pantoprazole, 40 mg, Oral, QAM AC senna-docusate sodium, 2 tablet, Oral, BID sodium chloride, 10 mL, Intravenous, Q12H thiamine, 100 mg, Oral, Daily Continuous Infusions: PRN Meds:. acetaminophen senna-docusate sodium AND polyethylene glycol AND bisacodyl AND bisacodyl Calcium Replacement - Follow Nurse / BPA Driven Protocol dextrose dextrose glucagon (human recombinant) LORazepam OR LORazepam OR LORazepam OR LORazepam OR LORazepam OR LORazepam Magnesium Cardiology Dose Replacement - Follow Nurse / BPA Driven Protocol nitroglycerin Phosphorus Replacement - Follow Nurse / BPA Driven Protocol Potassium Replacement - Follow Nurse / BPA Driven Protocol sodium chloride sodium chloride Assessment & Plan Assessment & Plan Active Hospital Problems Diagnosis POA Seizure [R56.9] Yes Aspiration pneumonitis -aspiration pneumonitis versus pneumonia [J69.0] Yes Acute hypoxemic respiratory failure -noted from outside hospital where she was intubated. [J96.01] Yes Alcohol dependence with withdrawal delirium -presented with seizures concerning for potential alcohol withdrawal [F10.231] Yes Anemia -uncertain etiology or chronicity [D64.9] Yes Resolved Hospital Problems No resolved problems to display. Brief Hospital Course to date: Regine Anguiano is a 70 y.o. female w history of tob and etoh abuse, found unresponsive on floor at home, reportedly next to an empty vodka bottle; she had witnessed seizures en route to OSH ED, was given keppra and benzodiazepeines at OSH ED and was intubated and transferred to [facility] ICU. Seizures, likely from ETOH withdrawal encephalopathic - got keppra at OSH - Neurology following, have decreased Keppra dose and will see as needed - Librium stopped - No driving x 90 days - unclear neuro baseline; reportedly has a long history of ETOH abuse and poor self care. Intubated for airway protection - now extubated - CXR initially had patchy infiltrates - empiric abx Pancytopenia - likely from cirrhosis though no liver imaging available. - Albumin 3.5. - Follow up as outpt if patient desires Alcohol abuse. - Thiamine, folic acid, and multivitamin ongoing Weakness - reportedly has not left home in years - SNF if amenable Expected Discharge Location and Transportation: tbd Expected Discharge tbd Expected Discharge Date: 04/08/2025; Expected Discharge Time: VTE Prophylaxis: Pharmacologic VTE prophylaxis orders are present. AM-PAC 6 Clicks Score (PT): 9 (04/05/251999) CODE STATUS: Code Status and Medical Interventions: CPR (Attempt to Resuscitate); Full Support Ordered at: 03/31/251945 Code Status (Patient has no pulse and is not breathing): CPR (Attempt to Resuscitate) Medical Interventions (Patient has pulse or is breathing): Full Support Jagruti Goins MD 04/06/25 * Radha Branch RD - 04/05/2025 4:21 PM EDT Patient Name: Regine Anguiano Date of : 1955 Admission date: 03/31/2025 Reason for Encounter: MST 2-3 or Nursing Admission Screen [facility] Clinical Nutrition Assessment Subjective Subjective Information 04/05 Good appetite per documentation. Patient confirms this. No nutrition concerns at this time. Tolerating diet. 04/02 Patient triggered for nutrition assessment for <chewing and swallowing issues, unsure weight loss> . Patient was found unresponsive at home with witnessed seizure in route to outside hospital. Intubated (03/31) due to altered mental status; extubated 04/01. HYDRAULIC ENGINEER bedside eval yesterday with recommendation for NPO status. FEES completed this morning with recommendation for soft diet with nectar thick liquids. Patient sleeping at time of visit, RD not able to obtain weight or nutrition history. Objective H&P and Current Problems Current Problems Admission Diagnosis: Seizure [R56.9] Problem List: Seizure Aspiration pneumonitis -aspiration pneumonitis versus pneumonia Acute hypoxemic respiratory failure -noted from outside hospital where she was intubated. Alcohol dependence with withdrawal delirium -presented with seizures concerning for potential alcohol withdrawal Anemia -uncertain etiology or chronicity H&P Past Medical History: Diagnosis Date Hypertension Past Surgical History: Procedure Laterality Date HYSTERECTOMY Applicable Nutrition Hx (03/31) Intubated (04/01) Extubated (04/01)HYDRAULIC ENGINEER bedside eval: NPO (04/02) FEES mechanical ground textures, nectar thick liquids, ice chips between meals after oral care, with supervision Anthropometrics Height: 165.1 cm (65 ) Weight: 64.1 kg (141 lb 5 oz) (04/05/25 0500) Weight Method: Bed scale BMI (Calculated): 23.5 Trending Weight Changes 04/02/25: Unknown/Unable to Determine Weight History Wt Readings from Last 10 Encounters: 04/05/25 0500 64.1 kg (141 lb 5 oz) 04/03/25 0600 63.8 kg (140 lb 10.5 oz) 04/02/25 0600 62.6 kg (138 lb 0.1 oz) 04/01/25 0645 63.5 kg (139 lb 15.9 oz) 03/31/25 1000 67.1 kg (147 lb 14.9 oz) Labs Comment: Results from last 7 days Lab Units 04/03/25 0349 04/02/25 0810 04/01/25 0102 03/31/25 1204 SODIUM mmol/L 138 140 137 137 POTASSIUM mmol/L 3.8 3.9 4.6 3.6 GLUCOSE mg/dL 114* 103* 137* 112* BUN mg/dL 7.6* 9.9 12.1 14.5 CREATININE mg/dL 0.79 0.78 0.78 0.74 CALCIUM mg/dL 9.0 9.5 9.1 9.5 PHOSPHORUS mg/dL 3.2 3.6 3.3 3.2 MAGNESIUM mg/dL 2.0 1.7 3.0* 1.3* ALBUMIN g/dL -- -- 3.5 3.9 LACTATE mmol/L -- -- -- 2.0 BILIRUBIN mg/dL -- -- 0.8 1.1 ALK PHOS U/L -- -- 139* 158* AST (SGOT) U/L -- -- 42* 41* ALT (SGPT) U/L -- -- PROBNP pg/mL -- -- -- 878.0 Results from last 7 days Lab Units 04/03/25 0349 04/02/25 0810 04/01/25 0101 03/31/25 1204 PLATELETS 10*3/mm3 68* 60* 102* 75* HEMOGLOBIN g/dL 9.3* 9.8* 10.8* 10.5* HEMATOCRIT % 28.6* 30.7* 32.5* 31.2* IRON mcg/dL -- -- -- 117 Lab Results Component Value Date HGBA1C 5.33 03/31/2025 Medications Scheduled Medications chlordiazePOXIDE, 10 mg, Oral, Q8H enoxaparin sodium, 40 mg, Subcutaneous, Q24H folic acid, 1 mg, Oral, Daily insulin regular, 2-7 Units, Subcutaneous, Q6H levETIRAcetam, 250 mg, Oral, BID multivitamin, 1 tablet, Oral, Daily nicotine, 1 patch, Transdermal, Q24H pantoprazole, 40 mg, Oral, QAM AC piperacillin-tazobactam, 4.5 g, Intravenous, Q8H senna-docusate sodium, 2 tablet, Oral, BID sodium chloride, 10 mL, Intravenous, Q12H thiamine, 100 mg, Oral, Daily Infusions PRN Medications acetaminophen senna-docusate sodium AND polyethylene glycol AND bisacodyl AND bisacodyl Calcium Replacement - Follow Nurse / BPA Driven Protocol dextrose dextrose glucagon (human recombinant) LORazepam OR LORazepam OR LORazepam OR LORazepam OR LORazepam OR LORazepam Magnesium Cardiology Dose Replacement - Follow Nurse / BPA Driven Protocol nitroglycerin Phosphorus Replacement - Follow Nurse / BPA Driven Protocol Potassium Replacement - Follow Nurse / BPA Driven Protocol sodium chloride sodium chloride Physical Findings Chewing/Swallowing HYDRAULIC ENGINEER following Dentition Mouth/Teeth WDL: .WDL except, teeth Teeth Symptoms: decay/caries, tooth/teeth missing Skin Bowel function Last Bowel Movement: 04/05/25 (04/05/25 0800) Stool Consistency: soft, loose (04/05/25 1200) Edema Edema: ankle, left, ankle, right, foot, left, foot, right (04/05/25 1200) Arm, Left Edema: 1+ (Trace) (04/05/25 1200) Arm, Right Edema: 1+ (Trace) (04/05/25 1200) Ankle, Left Edema: 1+ (Trace) (04/05/25 1200) Ankle, Right Edema: 1+ (Trace) (04/05/25 1200) Foot, Left Edema: 1+ (Trace) (04/05/25 1200) Foot, Right Edema: 1+ (Trace) (04/05/25 1200) Intake & Output (last 3 days) 04/02 0700 P.O. 25 200 300 300 I.V. (mL/kg) 2735.4 (42.9) Other 20 NG/GT IV Piggyback 157.2 Total Intake(mL/kg) 2937.7 (46) 200 (3.1) 300 (4.7) 300 (4.7) Urine (mL/kg/hr) 705 (0.5) 1155 (0.8) 6100 (4) Stool 0 0 Total Output 705 1155 6100 Net +2232.7 -955 -5800 +300 Urine Unmeasured Occurrence 1 x Stool Unmeasured Occurrence 2 x 2 x 2 x Nutrition Focused Physical Exam 04/02/25: NFPE not completed r/t patient did not give consent 1 Current Nutrition Orders & Evaluation of Intake Oral Nutrition Food Allergies/Intolerances None Current PO Diet Diet: Cardiac; Healthy Heart (2-3 Na+); Feeding Assistance - Nursing, No Straw; Texture: Pureed (NDD 1); Fluid Consistency: [place] Thick Oral Nutrition Supplement None Trending % PO Intake 04/02/25 NPO; isuf data 04/05/25: 100% x 3 meals 2 Assessment & Plan Nutrition Diagnosis and Goals Nutrition Diagnosis 1 No nutrition diagnosis at this time Nutrition Diagnosis 2 None Goal(s) Establish PO Intake Nutrition Intervention and Prescription Intervention Continue to monitor for plan of care Diet Plan Pureed, [place] thick liquids per HYDRAULIC ENGINEER recommendation Supplement Plan Eating well, not warranted at this time Education Provided 3 Monitoring/Evaluation Monitor/Evaluation Per Protocol, I&O, PO Intake, Pertinent Labs, Symptoms, and Swallow Function RD Follow-Up Encounter 7 days and prn Electronically signed by: Radha Branch RD 04/05/25 16:21 EDT * Susan Alvarado MD - 04/05/2025 4:11 PM EDT Images from the original note were not included. [facility] Medicine Services PROGRESS NOTE Patient Name: Regine Anguiano : 1955 Date of Admission: 03/31/2025 Primary Care Physician: Provider, No Known Subjective Subjective CC: unresponsive HPI: I want you to watch this. She shows me that she is having trouble bringing a spoon to her mouth, though she does get it 80% of the way there. Does not answer my questions. Objective Objective Vital Signs: Temp: [97.2 ??F (36.2 ??C)-98.8 ??F (37.1 ??C)] 97.8 ??F (36.6 ??C) Heart Rate: [77-92] 88 Resp: [18] 18 BP: (142-163)/(84-95) 142/91 Physical Exam: Gen: ill appearing, NAD in bed, trying to eat a pureed supper independently. Gets spoon into pudding and brings it most of the way to her mouth, then puts it back. Some food is on her gown Neuro: alert , clear speech, coarse tremor. HEENT: NC/AT Neck: Supple, no LAD Heart RRR Abd: Soft, nontender, Extrem: No c/c/e Results Reviewed: LAB RESULTS: Lab 04/03/25 0349 04/02/25 0810 04/01/25 0101 03/31/25 1204 WBC 2.76* 4.55 10.92* 5.94 HEMOGLOBIN 9.3* 9.8* 10.8* 10.5* HEMATOCRIT 28.6* 30.7* 32.5* 31.2* PLATELETS 68* 60* 102* 75* NEUTROS ABS -- -- 7.42* 4.61 IMMATURE GRANS (ABS) -- -- 0.06* 0.03 LYMPHS ABS -- -- 2.22 0.95 MONOS ABS -- -- 1.01* 0.32 EOS ABS -- -- 0.17 0.02 MCV 96.6 96.5 95.0 89.9 PROCALCITONIN -- -- -- 0.35* LACTATE -- -- -- 2.0 Lab 04/03/25 0349 04/02/25 0810 04/01/25 0102 03/31/25 1204 SODIUM 138 140 137 137 POTASSIUM 3.8 3.9 4.6 3.6 CHLORIDE 106 110* 104 100 CO2 22.7 21.6* 20.4* 23.3 ANION GAP 9.3 8.4 12.6 13.7 BUN 7.6* 9.9 12.1 14.5 CREATININE 0.79 0.78 0.78 0.74 EGFR 81.6 82.9 82.9 88.3 GLUCOSE 114* 103* 137* 112* CALCIUM 9.0 9.5 9.1 9.5 MAGNESIUM 2.0 1.7 3.0* 1.3* PHOSPHORUS 3.2 3.6 3.3 3.2 HEMOGLOBIN A1C -- -- -- 5.33 TSH -- -- -- 4.410* Lab 04/01/25 0102 03/31/25 1204 TOTAL PROTEIN 6.0 7.0 ALBUMIN 3.5 3.9 GLOBULIN 2.5 3.1 ALT (SGPT) 21 23 AST (SGOT) 42* 41* BILIRUBIN 0.8 1.1 ALK PHOS 139* 158* Lab 03/31/25 1204 PROBNP 878.0 Lab 03/31/25 1522 03/31/25 1204 IRON -- 117 IRON SATURATION (TSAT) -- 27 TIBC -- 432 TRANSFERRIN -- 290 FERRITIN -- 45.20 FOLATE >20.00 -- VITAMIN B 12 345 -- ABO TYPING A A RH TYPING Positive Positive ANTIBODY SCREEN Negative -- Lab 04/01/25 0340 03/31/25 1112 PH, ARTERIAL 7.416 7.453* PCO2, ARTERIAL 34.0* 34.5* PO2 ART 87.7 496.0* FIO2 30 100 HCO3 ART 21.9 24.1 BASE EXCESS ART -2.2* 0.5 CARBOXYHEMOGLOBIN 1.6 1.2 Brief Urine Lab Results (Last result in the past 365 days) Color Clarity Blood Leuk Est Nitrite Protein CREAT Urine HCG 03/31/25 1133 Yellow Clear Small (1+) Small (1+) Negative 100 mg/dL (2+) Microbiology Results Abnormal None No radiology results from the last 24 hrs I have personally reviewed the therapy plans: [] PT/OT/ ST Therapy Plans Current medications: Scheduled Meds:chlordiazePOXIDE, 10 mg, Oral, Q8H enoxaparin sodium, 40 mg, Subcutaneous, Q24H folic acid, 1 mg, Oral, Daily insulin regular, 2-7 Units, Subcutaneous, Q6H levETIRAcetam, 250 mg, Oral, BID multivitamin, 1 tablet, Oral, Daily nicotine, 1 patch, Transdermal, Q24H pantoprazole, 40 mg, Oral, QAM AC piperacillin-tazobactam, 4.5 g, Intravenous, Q8H senna-docusate sodium, 2 tablet, Oral, BID sodium chloride, 10 mL, Intravenous, Q12H thiamine, 100 mg, Oral, Daily Continuous Infusions: PRN Meds:. acetaminophen senna-docusate sodium AND polyethylene glycol AND bisacodyl AND bisacodyl Calcium Replacement - Follow Nurse / BPA Driven Protocol dextrose dextrose glucagon (human recombinant) LORazepam OR LORazepam OR LORazepam OR LORazepam OR LORazepam OR LORazepam Magnesium Cardiology Dose Replacement - Follow Nurse / BPA Driven Protocol nitroglycerin Phosphorus Replacement - Follow Nurse / BPA Driven Protocol Potassium Replacement - Follow Nurse / BPA Driven Protocol sodium chloride sodium chloride Assessment & Plan Assessment & Plan Active Hospital Problems Diagnosis POA Seizure [R56.9] Yes Aspiration pneumonitis -aspiration pneumonitis versus pneumonia [J69.0] Yes Acute hypoxemic respiratory failure -noted from outside hospital where she was intubated. [J96.01] Yes Alcohol dependence with withdrawal delirium -presented with seizures concerning for potential alcohol withdrawal [F10.231] Yes Anemia -uncertain etiology or chronicity [D64.9] Yes Resolved Hospital Problems No resolved problems to display. Brief Hospital Course to date: Regine Anguiano is a 70 y.o. female w history of tob and etoh abuse, found unresponsive on floor at home, reportedly next to an empty vodka bottle; she had witnessed seizures en route to OSH ED, was given keppra and benzodiazepeines at OSH ED and was intubated and transferred to [facility] ICU. Seizures, likely from ETOH withdrawal encephalopathic - got keppra at OSH - Neurology following, have decreased Keppra dose and will see as needed - Librium stopped - No driving x 90 days - unclear neuro baseline; reportedly has a long history of ETOH abuse and poor self care. Intubated for airway protection - now extubated - CXR initially had patchy infiltrates - empiric abx Pancytopenia - likely from cirrhosis though no liver imaging available. - Albumin 3.5. - Follow up as outpt if patient desires Alcohol abuse. - Thiamine, folic acid, and multivitamin ongoing Weakness - reportedly has not left home in years - SNF if amenable Expected Discharge Location and Transportation: tbd Expected Discharge tbd Expected Discharge Date: 04/08/2025; Expected Discharge Time: VTE Prophylaxis: Pharmacologic VTE prophylaxis orders are present. AM-PAC 6 Clicks Score (PT): 7 (04/05/25 1400) CODE STATUS: Code Status and Medical Interventions: CPR (Attempt to Resuscitate); Full Support Ordered at: 03/31/25 194 Code Status (Patient has no pulse and is not breathing): CPR (Attempt to Resuscitate) Medical Interventions (Patient has pulse or is breathing): Full Support Susan Alvarado MD 04/05/25 * Michael Bolton MD - 04/04/2025 7:03 PM EDT Neurology Note Patient: Regine Anguiano DATE OF : 1955 REFERRING PHYSICIAN: Dr. Alvarado CHIEF COMPLAINT: Seizures, AMS HISTORY OF PRESENT ILLNESS: The patient has been more alert today per RN, talking more. Noted to be weak and unable to get up w/o help. Past Medical History: Past Medical History: Diagnosis Date Hypertension Past Surgical History: Past Surgical History: Procedure Laterality Date HYSTERECTOMY Social History: Social History Socioeconomic History Marital status: Tobacco Use Smoking status: Every Day Current packs/day: 2.00 Average packs/day: 2.0 packs/day for 45.8 years (91.6 ttl pk-yrs) Types: Cigarettes Start date: 1979 Smokeless tobacco: Never Vaping Use Vaping status: Never Used Substance and Sexual Activity Alcohol use: Yes Drug use: Never Sexual activity: Not Currently Family History: Family History Problem Relation Name Age of Onset Seizures Father Medications Prior to Admission: Prior to Admission medications Not on File Allergies: Patient has no known allergies. Review of system Review of Systems Unable to perform ROS: Mental status change Vitals: 04/04/25 1522 BP: 162/93 Pulse: 95 Resp: 18 Temp: 98.6 ??F (37 ??C) SpO2: 99% Physical exam Physical Exam Cardiovascular: Rate and Rhythm: Normal rate and regular rhythm. Pulmonary: Effort: Pulmonary effort is normal. Neurological: Mental Status: She is oriented to person, place, and time. Comments: Asleep, awakens to voice and touch, speech is more clear, moves limbs on command, goes back to sleep. Lab Results Component Value Date WBC 2.76 (L) 04/03/2025 HGB 9.3 (L) 04/03/2025 HCT 28.6 (L) 04/03/2025 MCV 96.6 04/03/2025 PLT 68 (L) 04/03/2025 Lab Results Component Value Date GLUCOSE 114 (H) 04/03/2025 BUN 7.6 (L) 04/03/2025 CREATININE 0.79 04/03/2025 BCR 9.6 04/03/2025 CO2 22.7 04/03/2025 CALCIUM 9.0 04/03/2025 ALBUMIN 3.5 04/01/2025 AST 42 (H) 04/01/2025 ALT 21 04/01/2025 During this visit the following were done: Labs Reviewed [x] Labs Ordered [] Radiology Reports Reviewed [] Radiology Ordered [] EKG, echo, and/or stress test reviewed [] EEG results reviewed [] EEG reviewed and interpreted per myself [] Discussed case with neurointerventionalist or neuroradiologist [] Referring Provider Records Reviewed [] ER Records Reviewed [] Hospital Records Reviewed [] History Obtained From Family [] Radiological images view and Interpreted per myself [] Case Discussed with referring provider [] Decision to obtain and request outside records [] Assessment and Plan Seizures resolved, suspected withdrawal given seizures in alcohol/drug rehab, suspected prior seizure disorder. Drowsiness 22 meds and TME, improving.Tiny left occipital SDH, stable. Ammonia 36, b12 345, folate>20, TSH 4.4. - Decrease Keppra to 250 mg bid. - Librium stopped. - MVI. - No driving for 90 days on discharge. - Outpatient neurology F/U. - ST, PT, OT. Likely will need inpatient rehab. Call for questions, will see prn. Thanks. * Michael Bolton MD - 04/03/2025 5:06 PM EDT Neurology Note Patient: Regine Anguiano DATE OF : 1955 REFERRING PHYSICIAN: Dr. Mckeon CHIEF COMPLAINT: AMS, seizures HISTORY OF PRESENT ILLNESS: The patient was just moved to telemetry, no further seizures reported, remains drowsy. Past Medical History: Past Medical History: Diagnosis Date Hypertension Past Surgical History: Past Surgical History: Procedure Laterality Date HYSTERECTOMY Social History: Social History Socioeconomic History Marital status: Tobacco Use Smoking status: Every Day Current packs/day: 2.00 Average packs/day: 2.0 packs/day for 45.8 years (91.6 ttl pk-yrs) Types: Cigarettes Start date: 1979 Smokeless tobacco: Never Vaping Use Vaping status: Never Used Substance and Sexual Activity Alcohol use: Yes Drug use: Never Sexual activity: Not Currently Family History: Family History Problem Relation Name Age of Onset Seizures Father Medications Prior to Admission: Prior to Admission medications Not on File Allergies: Patient has no known allergies. Review of system Review of Systems Unable to perform ROS: Mental status change Vitals: 04/03/25 1600 BP: (!) 161/105 Pulse: 92 Resp: 20 Temp: 98.6 ??F (37 ??C) SpO2: 98% Physical exam Physical Exam Cardiovascular: Rate and Rhythm: Normal rate and regular rhythm. Pulmonary: Effort: Pulmonary effort is normal. Neurological: Comments: Asleep, arouses to voice and touch, oriented to self and hospital, no facial droop, moveslimbs on command. Lab Results Component Value Date WBC 2.76 (L) 04/03/2025 HGB 9.3 (L) 04/03/2025 HCT 28.6 (L) 04/03/2025 MCV 96.6 04/03/2025 PLT 68 (L) 04/03/2025 Lab Results Component Value Date GLUCOSE 114 (H) 04/03/2025 BUN 7.6 (L) 04/03/2025 CREATININE 0.79 04/03/2025 BCR 9.6 04/03/2025 CO2 22.7 04/03/2025 CALCIUM 9.0 04/03/2025 ALBUMIN 3.5 04/01/2025 AST 42 (H) 04/01/2025 ALT 21 04/01/2025 Ammonia 36 Resulting Agency [facility] Radiological Studies: HYDRAULIC ENGINEER FEES - Fiberoptic Endo Eval Swallow Result Date: 04/03/2025 This procedure was auto-finalized with no dictation required. XR Outside Chest Result Date: 04/01/2025 This procedure was auto-finalized with no dictation required. CT Head Without Contrast Result Date: 04/01/2025 CT HEAD WO CONTRAST Date of Exam: 04/01/2025 11:32 AM EDT Indication: follow up SDH seen on MRI. Comparison: MRI head 03/31/2025 Technique: Axial CT images were obtained of the head without contrast administration. Automated exposure control and iterative construction methods were used. Findings: Small residual subdural hematoma is seen overlying the posterior margin of the left occipital region.The hematoma measures up to approximately 2 mm in thickness. No additional intracranial hemorrhage is identified. There is no mass effect or midline shift. The ventricular system is nondilated. The basilar cisterns are patent. There is no uncal or cerebellar tonsillar herniation. White matter changes are noted. Diffuse volume loss is noted. These finds indicate age- related changes. There are no definitive signs of acute focal ischemia. The skull is intact. Mild changes of sinusitis are noted. The mastoid air cells are clear. Impression: 1.Small residual subdural hematoma is seen overlying the posterior margin of the left occipital region. The hematoma measures up to approximately 2 mm in thickness. The hematoma is stableto mildly decreased when correlated with the prior MRI. There has not been progression since the prior. 2.No additional intracranial hemorrhage is identified. 3.Age-related changes are noted. Electron ically Signed: Valdez Ascencio MD 04/01/2025 11:48 AM EDT Workstation ID: [id number] CT Outside Head Result Date: 04/01/2025 This procedure was auto-finalized with no dictation required. CT Outside Head Result Date: 04/01/2025 This procedure was auto-finalized with no dictation required. CT Outside Neck Result Date: 04/01/2025 This procedure was auto-finalized with no dictation required. XR Chest 1 View Result Date: 04/01/2025 XR CHEST 1 VW Date of Exam: 04/01/2025 3:40 AM EDT Indication: pneumonia. Comparison: 03/31/2025 Findings: Cardiac size is stable and within normal limits. The pulmonary vascular pattern is normal. There is an increase in atelectasis in the left lung base compared with the last study. There is mild discoid atelectasis in the right midlung. Endotracheal tube and nasoenteric tube remain in good position. Impression: 1.Increased left basilar atelectasis. 2.Mild discoid atelectasis in the right midlung. Electronically Signed: Adrián Puri MD 04/01/2025 7:52 AM EDT Workstation ID: [id number] MRI Brain Without Contrast Result Date: 04/01/2025 MRI BRAIN WO CONTRAST Date of Exam: 03/31/2025 9:27 PM EDT Indication: found down unknown time, newonset seizures. Comparison: None available. Technique: Routine multiplanar/multisequence sequence images of the brain were obtained without contrast administration. Findings: Diffusion-weighted imaging demonstrates no acute restriction abnormality. There is a small subdural collection along the left occipital convexity with increased signal on T1, FLAIR and T2 weighted imaging. This measures approximately 2 to 3 mm in greatest diameter. There is associated susceptibility artifact on gradient weighted imaging. No definite additional intracranial hemorrhage is noted. There is diffuse atrophy without evidence of mass effect. Mild to moderate degree of patchy FLAIR and T2 signal hyperintensity in the brain parenchyma with a supratentorial predominance is most compatible with sequela small vessel ischemic disease in this age group. Limited imaging of the major intracranial flow voids appear grossly patent. Mucosal thickening of the paranasal sinuses noted more prominently in the left maxillary sinus. Globes and orbits are grossly unremarkable in appearance. Bilateral mastoid effusions are noted left greater than right. Midline structures of the brain, sagittal T1 weighted images are grossly unremarkable in appearance. Pituitary and sellar structures and craniocervical junction are grossly unremarkable in appearance Impression: 1.No acute ischemic change. 2.Small subdural hematoma along the left occipital convexity. 3.Diffuse atrophy and white matter changes compatible sequela of small vessel ischemic disease inthis age group. 4.Bilateral mastoid effusions left greater than right. Findings were communicated to the agency service coordinator, Horace at 6:03 a.m. at the time of interpretation Electronically Signed: Pérez Ardon MD 04/01/2025 6:05 AM EDT Workstation ID: [id number] EEG Result Date: 03/31/2025 Reason for referral: 70 y.o.female with seizures Technical Summary: A 19 channel digital EEG was performed using the international 10-20 placement system, including eye leads and EKG leads. Duration:20 minutes Findings: The patient is intubated and sedated. The background shows diffuse low amplitude 5 to 6 Hz theta which is present symmetrically over both hemispheres. EMG artifact is quite prominent at times. IV pump artifact is prominent throughout. No lateralizing features are seen. No epileptiform activity or electrographic seizures are present. Photic stimulation does not change the background. Video: Available Technical quality: Good Rhythm strip: Regular, 70 bpm SUMMARY: Mild generalized slow and suppressed No focal features or epileptiform activity are seen Diffuse cerebral dysfunction of mild-moderate degree, nonspecific but most commonly seen due to toxic/metabolic or hypoxemic cause No ongoing seizures are present This report is transcribed using [employer] dictation system. XR Abdomen KUB Result Date: 03/31/2025 XR ABDOMEN KUB Date of Exam: 03/31/2025 12:47 PM EDT Indication: tube feeding placement. Comparison: None available. Findings: The nasogastric tube is noted with its tip in the stomach. There is a bandlike area of density in the right lower chest that could reflect some atelectasis. There also is probably atelectasis at the left lung base. Impression: 1.Nasogastric tube tip is within the stomach. 2.Atelectatic changes suggested in the visualized lower lungs. Electronically Signed: Marques Roberto MD 03/31/2025 1:13 PM EDT Workstation ID: [id number] XR Chest 1 View Result Date: 03/31/2025 XR CHEST 1 VW Date of Exam: 03/31/2025 10:47 AM EDT Indication: patient intubated, possible aspiration. Comparison: None available. Findings: Endotracheal tube tip 3.7 cm above the level of the demarcus. Feeding tube tip extending below the diaphragm and beyond the [id number]-st-opiv. No consolidation. No pneumothorax or pleural effusion. The clavicles are intact. No rib fractures. The visualized upper abdomen appears normal. Calcification of the aortic arch. Faint platelike atelectasis along the right minor fissure. Appropriate tube placement. Otherwise no acute cardiopulmonary disease. Electronically Signed: Allen Badillo MD 03/31/2025 11:02 AM EDT Workstation ID: [id number] During this visit the following were done: Labs Reviewed [x] Labs Ordered [] Radiology Reports Reviewed [] Radiology Ordered [] EKG, echo, and/or stress test reviewed [] EEG results reviewed [] EEG reviewed and interpreted per myself [] Discussed case with neurointerventionalist or neuroradiologist [] Referring Provider Records Reviewed [] ER Records Reviewed [] Hospital Records Reviewed [] History Obtained From Family [] Radiological images view and Interpreted per myself [] Case Discussed with referring provider [] Decision to obtain and request outside records [] Assessment and Plan Seizures resolved, suspected withdrawal given seizures in alcohol/drug rehab, suspected prior seizure disorder. Drowsiness 22 meds and TME.Tiny left occipital SDH, stable. - Decrease Keppra to 500 mg bid. - Decrease Librium to 10 mg q8. - No driving for 90 days on discharge. - Outpatient neurology F/U. - ST, PT, OT. * Dmitry Nicolas MD - 04/03/2025 8:49 AM EDT CRITICAL CARE PROGRESS NOTE Patient's name Regine Anguiano : 01/26/1955-70 y.o.-female Admission date 03/31/2025 Length of stay 9 ICU LOS 3d 6h Chief complaint: AMS TODAY: Patient seen examined at bedside. Yesterday open patient the ICU as she was drowsy and difficult toarouse. Risk of rapid response to be called on the patient on the floor. Today, she looks improved. Is following commands and little bit more alert. Keppra dose was decreased as well as Librium dose was decreased yesterday. HOSPITAL COURSE: SCHEDULED MEDS: CONTINUOUS INFUSIONS: No current facility-administered medications for this encounter. PHYSICAL EXAMINATION: No intake or output data in the 24 hours ending 04/26/25 1513 Physical Exam Constitutional: Appearance: Normal appearance. She is ill-appearing. HENT: Head: Normocephalic and atraumatic. Mouth/Throat: Mouth: Mucous membranes are moist. Eyes: Extraocular Movements: Extraocular movements intact. Conjunctiva/sclera: Conjunctivae normal. Pupils: Pupils are equal, round, and reactive to light. Cardiovascular: Rate and Rhythm: Normal rate and regular rhythm. Pulses: Normal pulses. Heart sounds: Normal heart sounds. Pulmonary: Effort: Pulmonary effort is normal. Breath sounds: Normal breath sounds. Abdominal: General: Abdomen is flat. Bowel sounds are normal. Palpations: Abdomen is soft. Musculoskeletal: Right lower leg: No edema. Left lower leg: No edema. Neurological: Mental Status: She is alert. DATA REVIEW: 1. Medical chart reviewed in detail 2. I reviewed the actual EKG rhythm strips and Pulse Oximetry data on the monitors 3. I reviewed today's lab values and the report of the most recent Chest X ray. 4. In addition, I have independently reviewed the actual image of the most recent chest Xray Hematology: Chemistry: Estimated Creatinine Clearance: 71.4 mL/min (by C-G formula based on SCr of 0.73 mg/dL). Hepatic Panel: Coagulation Labs: Cardiac Labs: Biomarkers: U/A Arterial Blood Gases: Microbiology: No results found for: BLOODCX , CULTURES , THROATCX , URINECX , STOOLCX , WOUNDCX Images: No radiology results for the last day Echo: ASSESSMENT & PLAN * No active hospital problems. * *Seizure disorder *EtOH abuse *Concern for possible pneumonia *Tobacco abuse *Subdural hematoma Plan: Continue manage in the ICU Patient loaded with 2 g of Keppra as well as given benzodiazepines. Neurology decreased the patient's Keppra to 750 twice daily. I decreased the patient's Librium to 25 mg 3 times daily. Patient is on CIWA protocol. Thiamine folic acid multivitamin Neurosurgery neurology consulted for the subdural hematoma, no acute recommendations from neurology. Neurosurgery evaluated the patient, DVT and GI prophylaxis Will likely transfer the patient to the ICU today. Bowel regimen: Diet: No diet orders on file GI ppx: DVT PPX: VTE Prophylaxis: Pharmacologic VTE prophylaxis orders are present. Advance Directives: Code Status (Patient has no pulse and is not breathing): CPR (Attempt to Resuscitate) Medical Interventions (Patient has pulse or is breathing): Full Support Dispo: Can likely transfer to the ICU I have spent a total of 56 critical care minutes in the management of this patient, apart from any time taken to perform necessary procedures. Critical care time includes time reviewing chart, images, report of images, rounding with nurse, respiratory therapist and pharmacist, and discussions with available family at bedside. Signed: Dmitry Nicolas MD 15:13 EST 04/26/2025 * Radha Branch, RD - 04/02/2025 9:46 AM EDT Patient Name: Regine Anguiano Date of : 1955 Admission date: 03/31/2025 Reason for Encounter: MST 2-3 or Nursing Admission Screen [facility] Clinical Nutrition Assessment Subjective Subjective Information 04/02 Patient triggered for nutrition assessment for <chewing and swallowing issues, unsure weight loss> . Patient was found unresponsive at home with witnessed seizure in route to outside hospital. Intubated (03/31) due to altered mental status; extubated 04/01. HYDRAULIC ENGINEER bedside eval yesterday with recommendation for NPO status. FEES completed this morning with recommendation for soft diet with nectar thick liquids. Patient sleeping at time of visit, RD not able to obtain weight or nutrition history. Objective H&P and Current Problems Current Problems Admission Diagnosis: Seizure [R56.9] Problem List: Seizure Aspiration pneumonitis -aspiration pneumonitis versus pneumonia Acute hypoxemic respiratory failure -noted from outside hospital where she was intubated. Alcohol dependence with withdrawal delirium -presented with seizures concerning for potential alcohol withdrawal Anemia -uncertain etiology or chronicity H&P No past medical history on file. No past surgical history on file. Applicable Nutrition Hx (03/31) Intubated (04/01) Extubated (04/01)HYDRAULIC ENGINEER bedside eval: NPO (04/02) FEES mechanical ground textures, nectar thick liquids, ice chips between meals after oral care, with supervision Anthropometrics Height: 165.1 cm (65 ) Weight: 62.6 kg (138 lb 0.1 oz) (04/02/25 0600) Weight Method: Bed scale BMI (Calculated): 23 Trending Weight Changes 04/02/25: Unknown/Unable to Determine Weight History Wt Readings from Last 10 Encounters: 04/02/25 0600 62.6 kg (138 lb 0.1 oz) 04/01/25 0645 63.5 kg (139 lb 15.9 oz) 03/31/25 1000 67.1 kg (147 lb 14.9 oz) Labs Comment: Results from last 7 days Lab Units 04/02/25 0810 04/01/25 0102 03/31/25 1204 SODIUM mmol/L 140 137 137 POTASSIUM mmol/L 3.9 4.6 3.6 GLUCOSE mg/dL 103* 137* 112* BUN mg/dL 9.9 12.1 14.5 CREATININE mg/dL 0.78 0.78 0.74 CALCIUM mg/dL 9.5 9.1 9.5 PHOSPHORUS mg/dL -- 3.3 3.2 MAGNESIUM mg/dL -- 3.0* 1.3* ALBUMIN g/dL -- 3.5 3.9 LACTATE mmol/L -- -- 2.0 BILIRUBIN mg/dL -- 0.8 1.1 ALK PHOS U/L -- 139* 158* AST (SGOT) U/L -- 42* 41* ALT (SGPT) U/L -- 21 23 PROBNP pg/mL -- -- 878.0 Results from last 7 days Lab Units 04/02/25 0810 04/01/25 0101 03/31/25 1204 PLATELETS 10*3/mm3 60* 102* 75* HEMOGLOBIN g/dL 9.8* 10.8* 10.5* HEMATOCRIT % 30.7* 32.5* 31.2* IRON mcg/dL -- -- 117 Lab Results Component Value Date HGBA1C 5.33 03/31/2025 Medications Scheduled Medications chlordiazePOXIDE, 25 mg, Oral, Q8H enoxaparin sodium, 40 mg, Subcutaneous, Q24H folic acid, 1 mg, Oral, Daily insulin regular, 2-7 Units, Subcutaneous, Q6H levETIRAcetam, 1,000 mg, Oral, BID midodrine, 10 mg, Oral, Q8H mupirocin, 1 Application, Each Nare, BID nicotine, 1 patch, Transdermal, Q24H pantoprazole, 40 mg, Oral, QAM AC piperacillin-tazobactam, 4.5 g, Intravenous, Q8H senna-docusate sodium, 2 tablet, Oral, BID sodium chloride, 10 mL, Intravenous, Q12H [START ON 04/03/2025] thiamine, 100 mg, Oral, Daily Infusions dexmedetomidine, 0.2-1.5 mcg/kg/hr, Last Rate: Stopped (04/02/25 0438) norepinephrine, 0.02-0.3 mcg/kg/min, Last Rate: Stopped (04/02/25 0530) PRN Medications senna-docusate sodium AND polyethylene glycol AND bisacodyl AND bisacodyl Calcium Replacement - Follow Nurse / BPA Driven Protocol dextrose dextrose glucagon (human recombinant) LORazepam OR LORazepam OR LORazepam OR LORazepam OR LORazepam OR LORazepam Magnesium Cardiology Dose Replacement - Follow Nurse / BPA Driven Protocol nitroglycerin Phosphorus Replacement - Follow Nurse / BPA Driven Protocol Potassium Replacement - Follow Nurse / BPA Driven Protocol sodium chloride sodium chloride Physical Findings Chewing/Swallowing HYDRAULIC ENGINEER eval pending and HYDRAULIC ENGINEER following Dentition Mouth/Teeth WDL: .WDL except, teeth Teeth Symptoms: tooth/teeth missing Skin Bowel function Edema Intake & Output (last 3 days) 03/30 0703/31 0703/31 0704/01 0704/01 0704/02 0704/02 07 I.V. (mL/kg) 2705 (42.6) 940.1 (15) 2.8 (0) Other 30 20 NG/GT 150 80 IV Piggyback 1350 226.9 45.7 Total Intake(mL/kg) 4235 (66.7) 1247 (19.9) 68.5 (1.1) Urine (mL/kg/hr) 1255 645 (0.4) 80 (0.5) Total Output 1255 645 80 Net +2980 +602 -11.5 Nutrition Focused Physical Exam 04/02/25: NFPE not completed r/t patient did not give consent 1 Current Nutrition Orders & Evaluation of Intake Oral Nutrition Food Allergies/Intolerances None Current PO Diet NPO Diet NPO Type: Strict NPO Oral Nutrition Supplement None Trending % PO Intake 04/02/25 NPO; isuf data 2 Assessment & Plan Nutrition Diagnosis and Goals Nutrition Diagnosis 1 Predicted Inadequate Energy Intake r/t clinical condition EVB insuf data Nutrition Diagnosis 2 None Goal(s) Establish PO Intake Nutrition Intervention and Prescription Intervention Continue to monitor for plan of care Diet Plan Diet per HYDRAULIC ENGINEER recommendations: Ground, [place] thick liquids Monitor PO trend Supplement Plan Education Provided 3 Monitoring/Evaluation Monitor/Evaluation Per Protocol, I&O, PO Intake, Pertinent Labs, Symptoms, and Swallow Function RD Follow-Up Encounter 3-5 days and prn Electronically signed by: Radha Branch RD 04/02/25 09:46 EDT * Dmityr Nicolas MD - 04/02/2025 8:43 AM EDT CRITICAL CARE PROGRESS NOTE Patient's name Regine Anguiano : 01/26/1955-70 y.o.-female Admission date 03/31/2025 Length of stay 2 ICU LOS 1d 22h Chief complaint: AMS TODAY: Patient seen examined at bedside. Not actually needing any pressor support or Precedex at this time. Extubated yesterday in the afternoon. Currently on Librium 50 mg 3 times daily for EtOH withdrawals. Currently Lethargic HOSPITAL COURSE: SCHEDULED MEDS: chlordiazePOXIDE, 50 mg, Oral, Q8H enoxaparin sodium, 40 mg, Subcutaneous, Q24H folic acid, 1 mg, Oral, Daily insulin regular, 2-7 Units, Subcutaneous, Q6H levETIRAcetam, 1,000 mg, Oral, BID midodrine, 10 mg, Oral, Q8H mupirocin, 1 Application, Each Nare, BID nicotine, 1 patch, Transdermal, Q24H pantoprazole, 40 mg, Oral, QAM AC piperacillin-tazobactam, 4.5 g, Intravenous, Q8H senna-docusate sodium, 2 tablet, Oral, BID sodium chloride, 10 mL, Intravenous, Q12H [START ON 04/03/2025] thiamine, 100 mg, Oral, Daily CONTINUOUS INFUSIONS: dexmedetomidine, 0.2-1.5 mcg/kg/hr, Last Rate: Stopped (04/02/25 2332) norepinephrine, 0.02-0.3 mcg/kg/min, Last Rate: Stopped (04/02/25 0584) PHYSICAL EXAMINATION: Temp: [97.9 ??F (36.6 ??C)-99 ??F (37.2 ??C)] 97.9 ??F (36.6 ??C) Heart Rate: [58-80] 61 Resp: [12-18] 18 BP: (73-130)/(43-70) 114/65 FiO2 (%): [30 %] 30 % Intake/Output Summary (Last 24 hours) at 04/02/2025 0843 Last data filed at 04/02/2025 0800 Gross per 24 hour Intake 1002.09 ml Output 697 ml Net 305.09 ml Mode: PS FiO2 (%): [30 %] 30 % S RR: [14] 14 S VT: [420 mL] 420 mL PEEP/CPAP (cm H2O): [5 cm H20] 5 cm H20 NV SUP: [10 cm H20] 10 cm H20 MAP (cm H2O): [8.1-8.2] 8.1 Physical Exam Constitutional: Appearance: Normal appearance. She is ill-appearing. HENT: Head: Normocephalic and atraumatic. Mouth/Throat: Mouth: Mucous membranes are moist. Eyes: Extraocular Movements: Extraocular movements intact. Conjunctiva/sclera: Conjunctivae normal. Pupils: Pupils are equal, round, and reactive to light. Cardiovascular: Rate and Rhythm: Normal rate and regular rhythm. Pulses: Normal pulses. Heart sounds: Normal heart sounds. Pulmonary: Effort: Pulmonary effort is normal. Breath sounds: Normal breath sounds. Abdominal: General: Abdomen is flat. Bowel sounds are normal. Palpations: Abdomen is soft. Musculoskeletal: Right lower leg: No edema. Left lower leg: No edema. Neurological: Mental Status: She is alert. DATA REVIEW: 1. Medical chart reviewed in detail 2. I reviewed the actual EKG rhythm strips and Pulse Oximetry data on the monitors 3. I reviewed today's lab values and the report of the most recent Chest X ray. 4. In addition, I have independently reviewed the actual image of the most recent chest Xray Hematology: Results from last 7 days Lab Units 04/02/25 0810 04/01/25 01003/31/25 1204 WBC 10*3/mm3 4.55 10.92* 5.94 HEMOGLOBIN g/dL 9.8* 10.8* 10.5* HEMATOCRIT % 30.7* 32.5* 31.2* PLATELETS 10*3/mm3 60* 102* 75* Chemistry: Estimated Creatinine Clearance: 68.2 mL/min (by C-G formula based on SCr of 0.78 mg/dL). Results from last 7 days Lab Units 04/02/25 0810 04/01/25 010 SODIUM mmol/L 140 137 POTASSIUM mmol/L 3.9 4.6 CHLORIDE mmol/L 110* 104 CO2 mmol/L 21.6* 20.4* BUN mg/dL 9.9 12.1 CREATININE mg/dL 0.78 0.78 GLUCOSE mg/dL 103* 137* Results from last 7 days Lab Units 04/02/25 0810 04/01/25 01003/31/25 1204 CALCIUM mg/dL 9.5 9.1 9.5 MAGNESIUM mg/dL -- 3.0* 1.3* PHOSPHORUS mg/dL -- 3.3 3.2 Hepatic Panel: Results from last 7 days Lab Units 04/01/2503/31/25 1204 ALBUMIN g/dL 3.5 3.9 TOTAL PROTEIN g/dL 6.0 7.0 BILIRUBIN mg/dL 0.8 1.1 AST (SGOT) U/L 42* 41* ALT (SGPT) U/L 21 23 ALK PHOS U/L 139* 158* Coagulation Labs: Cardiac Labs: Results from last 7 days Lab Units 03/31/25 1204 PROBNP pg/mL 878.0 CK TOTAL U/L 215* Biomarkers: Results from last 7 days Lab Units 03/31/25 1204 LACTATE mmol/L 2.0 PROCALCITONIN ng/mL 0.35* U/A Results from last 7 days Lab Units 03/31/25 1133 COLOR UA Yellow CLARITY UA Clear PH, URINE 6.5 SPECIFIC GRAVITY, URINE >1.030* GLUCOSE UA Negative KETONES UA Negative BILIRUBIN UA Negative PROTEIN UA 100 mg/dL (2+)* BLOOD UA Small (1+)* LEUKOCYTES UA Small (1+)* NITRITE UA Negative UROBILINOGEN UA 1.0 E.U./dL Results from last 7 days Lab Units 03/31/25 1133 RBC UA /HPF 6-10* WBC UA /HPF 6-10* BACTERIA UA /HPF Trace* SQUAM EPITHEL UA /HPF 0-2 HYALINE CASTS UA /LPF 7-12 Arterial Blood Gases: Results from last 7 days Lab Units 04/01/25 0340 03/31/25 1112 PH, ARTERIAL pH units 7.416 7.453* PCO2, ARTERIAL mm Hg 34.0* 34.5* PO2 ART mm Hg 87.7 496.0* FIO2 % 30 100 Microbiology: No results found for: BLOODCX , CULTURES , THROATCX , URINECX , STOOLCX , WOUNDCX Images: CT Head Without Contrast Result Date: 04/01/2025 Impression: 1.Small residual subdural hematoma is seen overlying the posterior margin of the left occipital region. The hematoma measures up to approximately 2 mm in thickness. The hematoma is stableto mildly decreased when correlated with the prior MRI. There has not been progression since the prior. 2.No additional intracranial hemorrhage is identified. 3.Age-related changes are noted. Electron ically Signed: Valdez Ascencio MD 04/01/2025 11:48 AM EDT Workstation ID: [id number] XR Chest 1 View Result Date: 04/01/2025 Impression: 1.Increased left basilar atelectasis. 2.Mild discoid atelectasis in the right midlung. Electronically Signed: Adrián Puri MD 04/01/2025 7:52 AM EDT Workstation ID: [id number] MRI Brain Without Contrast Result Date: 04/01/2025 Impression: 1.No acute ischemic change. 2.Small subdural hematoma along the left occipital convexity. 3.Diffuse atrophy and white matter changes compatible sequela of small vessel ischemic disease inthis age group. 4.Bilateral mastoid effusions left greater than right. Findings were communicated to the agency service coordinator, Horace at 6:03 a.m. at the time of interpretation Electronically Signed: Pérez Ardon MD 04/01/2025 6:05 AM EDT Workstation ID: [id number] EEG Result Date: 03/31/2025 Diffuse cerebral dysfunction of mild-moderate degree, nonspecific but most commonly seen due to toxic/metabolic or hypoxemic cause No ongoing seizures are present This report is transcribed using [employer] dictation system. XR Abdomen KUB Result Date: 03/31/2025 Impression: 1.Nasogastric tube tip is within the stomach. 2.Atelectatic changes suggested in the visualized lower lungs. Electronically Signed: Marques Roberto MD 03/31/2025 1:13 PM EDT Workstation ID: [id number] XR Chest 1 View Result Date: 03/31/2025 Appropriate tube placement. Otherwise no acute cardiopulmonary disease. Electronically Signed: Allen Badillo MD 03/31/2025 11:02 AM EDT Workstation ID: [id number] Echo: ASSESSMENT & PLAN Seizure Aspiration pneumonitis -aspiration pneumonitis versus pneumonia Acute hypoxemic respiratory failure -noted from outside hospital where she was intubated. Alcohol dependence with withdrawal delirium -presented with seizures concerning for potential alcohol withdrawal Anemia -uncertain etiology or chronicity *Seizure disorder *EtOH abuse *Concern for possible pneumonia *Tobacco abuse *Subdural hematoma Plan: Continue manage in the ICU Patient loaded with 2 g of Keppra as well as given benzodiazepines. Phenobarbital taper has been initiated -this patient does have a subdural hematoma, continue patient on Librium 50 mg 3 times daily Patient is on CIWA protocol. Thiamine folic acid multivitamin Neurosurgery neurology consulted for the subdural hematoma, no acute recommendations from neurology. Neurosurgery evaluated the patient, DVT and GI prophylaxis Wean ventilator settings is much as possible and attempt to extubate as tolerated Neurosurgery called for consult; Order repeat CT of the head., Hematoma is stable to mildly decreased from MRI. Bowel regimen: Diet: NPO Diet NPO Type: Strict NPO GI ppx: DVT PPX: VTE Prophylaxis: Pharmacologic VTE prophylaxis orders are present. Advance Directives: Code Status (Patient has no pulse and is not breathing): CPR (Attempt to Resuscitate) Medical Interventions (Patient has pulse or is breathing): Full Support Dispo: Can likely transfer to the ICU I have spent a total of 46 critical care minutes in the management of this patient, apart from any time taken to perform necessary procedures. Critical care time includes time reviewing chart, images, report of images, rounding with nurse, respiratory therapist and pharmacist, and discussions with available family at bedside. Signed: Dmitry Nicolas MD 08:43 EDT 04/02/2025 * Michael Bolton MD - 04/02/2025 6:17 AM EDT Neurology Note Patient: Regine Anguiano DATE OF : 1955 REFERRING PHYSICIAN: Dr. Mckeon CHIEF COMPLAINT: Seizures, AMS HISTORY OF PRESENT ILLNESS: The patient was extubated yday, Precedex stopped around 4 am. No further seziures reported. She hasbeen drowsy, Librium dose decreased. Past Medical History: Past Medical History: Diagnosis Date Hypertension Past Surgical History: Past Surgical History: Procedure Laterality Date HYSTERECTOMY Social History: Social History Socioeconomic History Marital status: Tobacco Use Smoking status: Every Day Current packs/day: 2.00 Average packs/day: 2.0 packs/day for 45.8 years (91.6 ttl pk-yrs) Types: Cigarettes Start date: 1979 Smokeless tobacco: Never Vaping Use Vaping status: Never Used Substance and Sexual Activity Alcohol use: Yes Drug use: Never Sexual activity: Not Currently Family History: Family History Problem Relation Name Age of Onset Seizures Father Medications Prior to Admission: Prior to Admission medications Not on File Allergies: Patient has no known allergies. Review of system Review of Systems Unable to perform ROS: Mental status change Vitals: 04/03/25 0400 BP: 134/74 Pulse: 77 Resp: 14 Temp: 98.8 ??F (37.1 ??C) SpO2: 98% Physical exam Physical Exam Cardiovascular: Rate and Rhythm: Normal rate and regular rhythm. Pulmonary: Effort: Pulmonary effort is normal. Musculoskeletal: Cervical back: Neck supple. Neurological: Comments: Drowsy, alerts to voice, oriented to self, hospital, March, speech slightly dysarthric,follows commands, no facial droop, moves limb against gravity. Lab Results Component Value Date WBC 2.76 (L) 04/03/2025 HGB 9.3 (L) 04/03/2025 HCT 28.6 (L) 04/03/2025 MCV 96.6 04/03/2025 PLT 68 (L) 04/03/2025 Lab Results Component Value Date GLUCOSE 114 (H) 04/03/2025 BUN 7.6 (L) 04/03/2025 CREATININE 0.79 04/03/2025 BCR 9.6 04/03/2025 CO2 22.7 04/03/2025 CALCIUM 9.0 04/03/2025 ALBUMIN 3.5 04/01/2025 AST 42 (H) 04/01/2025 ALT 21 04/01/2025 Radiological Studies: XR Outside Chest Result Date: 04/01/2025 This procedure was auto-finalized with no dictation required. CT Head Without Contrast Result Date: 04/01/2025 CT HEAD WO CONTRAST Date of Exam: 04/01/2025 11:32 AM EDT Indication: follow up SDH seen on MRI. Comparison: MRI head 03/31/2025 Technique: Axial CT images were obtained of the head without contrast administration. Automated exposure control and iterative construction methods were used. Findings: Small residual subdural hematoma is seen overlying the posterior margin of the left occipital region.The hematoma measures up to approximately 2 mm in thickness. No additional intracranial hemorrhage is identified. There is no mass effect or midline shift. The ventricular system is nondilated. The basilar cisterns are patent. There is no uncal or cerebellar tonsillar herniation. White matter changes are noted. Diffuse volume loss is noted. These finds indicate age-related changes. There are no definitive signs of acute focal ischemia. The skull is intact. Mild changes of sinusitis are noted. The mastoid air cells are clear. Impression: 1.Small residual subdural hematoma is seen overlying the posterior margin of the left occipital region. The hematoma measures up to approximately 2 mm in thickness. The hematoma is stableto mildly decreased when correlated with the prior MRI. There has not been progression since the prior. 2.No additional intracranial hemorrhage is identified. 3.Age-related changes are noted. Electron ically Signed: Valdez Ascencio MD 04/01/2025 11:48 AM EDT Workstation ID: [id number] CT Outside Head Result Date: 04/01/2025 This procedure was auto-finalized with no dictation required. CT Outside Head Result Date: 04/01/2025 This procedure was auto-finalized with no dictation required. CT Outside Neck Result Date: 04/01/2025 This procedure was auto-finalized with no dictation required. XR Chest 1 View Result Date: 04/01/2025 XR CHEST 1 VW Date of Exam: 04/01/2025 3:40 AM EDT Indication: pneumonia. Comparison: 03/31/2025 Findings: Cardiac size is stable and within normal limits. The pulmonary vascular pattern is normal. There is an increase in atelectasis in the left lung base compared with the last study. There is mild discoid atelectasis in the right midlung. Endotracheal tube and nasoenteric tube remain in good position. Impression: 1.Increased left basilar atelectasis. 2.Mild discoid atelectasis in the right midlung. Electronically Signed: Adrián Puri MD 04/01/2025 7:52 AM EDT Workstation ID: [id number] MRI Brain Without Contrast Result Date: 04/01/2025 MRI BRAIN WO CONTRAST Date of Exam: 03/31/2025 9:27 PM EDT Indication: found down unknown time, newonset seizures. Comparison: None available. Technique: Routine multiplanar/multisequence sequence images of the brain were obtained without contrast administration. Findings: Diffusion-weighted imaging demonstrates no acute restriction abnormality. There is a small subdural collection along the left occipital convexity with increased signal on T1, FLAIR and T2 weighted imaging. This measures approximately 2 to 3 mm in greatest diameter. There is associated susceptibility artifact on gradient weighted imaging. No definite additional intracranial hemorrhage is noted. There is diffuse atrophy without evidence of mass effect. Mild to moderate degree of patchy FLAIR and T2 signal hyperintensity in the brain parenchyma with a supratentorial predominance is most compatible with sequela small vessel ischemic disease in this age group. Limited imaging of the major intracranial flow voids appear grossly patent. Mucosal thickening of the paranasal sinuses noted more prominently in the left maxillary sinus. Globes and orbits are grossly unremarkable in appearance. Bilateral mastoid effusions are noted left greater than right. Midline structures of the brain, sagittal T1 weighted images are grossly unremarkable in appearance. Pituitary and sellar structures and craniocervical junction are grossly unremarkable in appearance Impression: 1.No acute ischemic change. 2.Small subdural hematoma along the left occipital convexity. 3.Diffuse atrophy and white matter changes compatible sequela of small vessel ischemic disease inthis age group. 4.Bilateral mastoid effusions left greater than right. Findings were communicated to the agency service coordinator, Horace at 6:03 a.m. at the time of interpretation Electronically Signed: Pérez Ardon MD 04/01/2025 6:05 AM EDT Workstation ID: [id number] Result Date: 03/31/2025 Reason for referral: 70 y.o.female with seizures Technical Summary: A 19 channel digital EEG was performed using the international 10-20 placement system, including eye leads and EKG leads. Duration:20 minutes Findings: The patient is intubated and sedated. The background shows diffuse low amplitude 5 to 6 Hz theta which is present symmetrically over both hemispheres. EMG artifact is quite prominent at times. IV pump artifact is prominent throughout. No lateralizing features are seen. No epileptiform activity or electrographic seizures are present. Photic stimulation does not change the background. Video: Available Technical quality: Good Rhythm strip: Regular, 70 bpm SUMMARY: Mild generalized slow and suppressed No focal features or epileptiform activity are seen Diffuse cerebral dysfunction of mild-moderate degree, nonspecific but most commonly seen due to toxic/metabolic or hypoxemic cause No ongoing seizures are present This report is transcribed using [employer] dictation system. XR Abdomen KUB Result Date: 03/31/2025 XR ABDOMEN KUB Date of Exam: 03/31/2025 12:47 PM EDT Indication: tube feeding placement. Comparison: None available. Findings: The nasogastric tube is noted with its tip in the stomach. There is a bandlike area of density in the right lower chest that could reflect some atelectasis. There also is probably atelectasis at the left lung base. Impression: 1.Nasogastric tube tip is within the stomach. 2.Atelectatic changes suggested in the visualized lower lungs. Electronically Signed: Marques Roberto MD 03/31/2025 1:13 PM EDT Workstation ID: [id number] XR Chest 1 View Result Date: 03/31/2025 XR CHEST 1 VW Date of Exam: 03/31/2025 10:47 AM EDT Indication: patient intubated, possible aspiration. Comparison: None available. Findings: Endotracheal tube tip 3.7 cm above the level of the demarcus. Feeding tube tip extending below the diaphragm and beyond the [id number]. No consolidation. No pneumothorax or pleural effusion. The clavicles are intact. No rib fractures. The visualized upper abdomen appears normal. Calcification of the aortic arch. Faint platelike atelectasis along the right minor fissure. Appropriate tube placement. Otherwise no acute cardiopulmonary disease. Electronically Signed: Allen Badillo MD 03/31/2025 11:02 AM EDT Workstation ID: [id number] During this visit the following were done: Labs Reviewed [x] Labs Ordered [] Radiology Reports Reviewed [x] Radiology Ordered [] EKG, echo, and/or stress test reviewed [] EEG results reviewed [] EEG reviewed and interpreted per myself [] Discussed case with neurointerventionalist or neuroradiologist [] Referring Provider Records Reviewed [] ER Records Reviewed [] Hospital Records Reviewed [] History Obtained From Family [] Radiological images view and Interpreted per myself [x] Case Discussed with referring provider [] Decision to obtain and request outside records [] Assessment and Plan Seizures resolved, suspected withdrawal given seizures in drug rehab, suspected seizure disorder. Drowsiness 22 meds.Tiny left occipital SDH, stable. - Decrease Keppra to 750 mg bid. - Neurologically stable for telemetry. - No driving for 90 days on discharge. - Outpatient neurology F/U. - ST, PT, OT. * Lowell Do Unruly, DO - 04/01/2025 8:49 AM EDT [facility] Neurology Progress Note Patient Name: Regine Anguiano : 1955 Primary Care Physician: Provider, No Known Date of admission: 03/31/2025 Subjective Reason for consult: Seizures History of Present Illness Intermittently hypotensive overnight. When sedation was weaned she moved all extremities and attempted to sit up in bed but did not follow commands Review of Systems Unable to obtain Objective Vitals: Temp: [97.3 ??F (36.3 ??C)-98.6 ??F (37 ??C)] 98.4 ??F (36.9 ??C) Heart Rate: [56-102] 56 Resp: [14] 14 BP: (71-135)/(46-100) 126/69 FiO2 (%): [30 %-100 %] 30 % Neurological Examination sedated on fentanyl, propofol Mental status: does not open eyes to noxious stimulation Speech/language: intubated, does not follow commands Cranial nerves: PERRL. Gaze conjugate and midline. Does not blink to threat. Does not track. Face appears symmetric. Motor: No spontaneous movement. Flaccid tone. Sensation: No withdrawal to nailbed pressure. Current Medications Current Medications[1] Laboratory Results: Lab Results Component Value Date GLUCOSE 137 (H) 04/01/2025 CALCIUM 9.1 04/01/2025 NA 137 04/01/2025 K 4.6 04/01/2025 CO2 20.4 (L) 04/01/2025 CL 104 04/01/2025 BUN 12.1 04/01/2025 CREATININE 0.78 04/01/2025 BCR 15.5 04/01/2025 ANIONGAP 12.6 04/01/2025 Lab Results Component Value Date WBC 10.92 (H) 04/01/2025 HGB 10.8 (L) 04/01/2025 HCT 32.5 (L) 04/01/2025 MCV 95.0 04/01/2025 PLT 102 (L) 04/01/2025 No results found for: CHOL No results found for: HDL No results found for: LDL Lab Results Component Value Date HGBA1C 5.33 03/31/2025 Lab Results Component Value Date FOLATE >20.00 03/31/2025 Lab Results Component Value Date [id number] 345 03/31/2025 CK 215 Blood cultures pending Respiratory culture 2+ WBCs, 2+ gram-positive bacilli Ammonia 36 Lactate 2.0 Pro-Gordon 0.35 Images/Procedures CT head, CTA from OSH report only 03/31/2025 CT head unremarkable, CTA with atherosclerosis in bilateral ICAs MRI brain without contrast 03/31/2025 Small subdural along the left occipital convexity. Diffuse atrophy and white matter changes. Routine EEG 03/31/2025 Mild generalized slowing without focal features Assessment / Plan Active Hospital Problems: Found down History of alcohol abuse Witnessed seizure-like activity Brief Patient Summary: Regine Anguiano is a 70 y.o. female with history of alcohol abuse who presented to [facility] ICU as a transfer from OSH after being found down. EMS witnessed seizure- like event, followed by a second event in the CT scanner. She was given Versed 5 mg, Versed 2 mg and Keppra 2 g. UDS negative, EtOH negative. She was transferred to [facility] ICU for further care. On exam she is intubated, sedated. Does not wake up or follow commands, no withdrawal to nailbed pressure in any extremity. CT head showed a small subdural along the left occipital convexity. Will repeat scan to make sure it is stable and consult neurosurgery. Continue current dose of Keppra. Plan: - Continue Keppra 1000 mg twice daily, max dose based of creatinine clearance - Consult neurosurgery for subdural - CT head - Seizure precautions - Wean sedation as able - CIWA per primary I have discussed the above with the patient, bedside RN, financial dealers Time spent with patient: 35 minutes in [id number]-[id number] evaluation and management of the patient. Lowell Do DO, MS [1] Current Facility-Administered Medications: sennosides-docusate (PERICOLACE) 8.6-50 MG per tablet 2 tablet, 2 tablet, Oral, BID, 2 tablet at 04/01/25 0816 AND polyethylene glycol (MIRALAX) packet 17 g, 17 g, Oral, Daily PRN AND bisacodyl (DULCOLAX) EC tablet 5 mg, 5 mg, Oral, Daily PRN AND bisacodyl (DULCOLAX) suppository 10 mg, 10 mg, Rectal, Daily PRN, Pk Mckeon MD Calcium Replacement - Follow Nurse / BPA Driven Protocol, , Not Applicable, PRN, Pk Mckeon MD dextrose (D50W) (25 g/50 mL) IV injection 25 g, 25 g, Intravenous, Q15 Min PRN, Narda Davila PA-C dextrose (GLUTOSE) oral gel 15 g, 15 g, Oral, Q15 Min PRN, Narda Davila PA-C enoxaparin sodium (LOVENOX) syringe 40 mg, 40 mg, Subcutaneous, Q24H, Narda Davila PA-C, 40 mg at 03/31/25 1232 fentaNYL 2500 mcg/250 mL NS infusion, 50-300 mcg/hr, Intravenous, Titrated, Pk Mckeon MD, Last Rate: 10 mL/hr at 04/01/25 0831, 100 mcg/hr at 04/01/25 0831 folic acid 1 mg in sodium chloride 0.9 % 50 mL IVPB, 1 mg, Intravenous, Daily, Narda Davila PA-C, Last Rate: 100 mL/hr at 04/01/25 0816, 1 mg at 04/01/25 0816 glucagon (GLUCAGEN) injection 1 mg, 1 mg, Intramuscular, Q15 Min PRN, Narda Davila PA-C insulin regular (humuLIN R,novoLIN R) injection 2-7 Units, 2-7 Units, Subcutaneous, Q6H, Narda Davila PA-C lactated ringers infusion, 125 mL/hr, Intravenous, Continuous, Alonso Cameron APRN, Last Rate:125 mL/hr at 04/01/25 0805, 125 mL/hr at 04/01/25 0805 levETIRAcetam (KEPPRA) injection 1,000 mg, 1,000 mg, Intravenous, Q12H, Alonso Cameron APRN, 1,000 mg at 04/01/25 0804 Magnesium Cardiology Dose Replacement - Follow Nurse / BPA Driven Protocol, , Not Applicable, PRN, Pk Mckeon MD midodrine (PROAMATINE) tablet 10 mg, 10 mg, Oral, Q8H, Alonso Cameron APRN, 10 mg at 04/01/25 0516 mupirocin (BACTROBAN) 2 % nasal ointment 1 Application, 1 Application, Each Nare, BID, Pk Mckeon MD, 1 Application at 04/01/25 0805 nicotine (NICODERM CQ) 21 MG/24HR patch 1 patch, 1 patch, Transdermal, Q24H, Pk Mckeon MD,1 patch at 04/01/25 0807 nitroglycerin (NITROSTAT) SL tablet 0.4 mg, 0.4 mg, Sublingual, Q5 Min PRN, Pk Mckeon MD norepinephrine (LEVOPHED) 8 mg in 250 mL NS infusion (premix), 0.02-0.3 mcg/kg/min, Intravenous, Titrated, Narda Davila PA-C, Last Rate: 12.58 mL/hr at 04/01/25 0812, 0.1 mcg/kg/min at 04/01/25 0812 pantoprazole (PROTONIX) injection 40 mg, 40 mg, Intravenous, Q24H, Narda Davila PA-C, 40 mg at 04/01/25 0803 PHENobarbital injection 65 mg, 65 mg, Intravenous, Once FOLLOWED BY [START ON 04/02/2025] PHENobarbital injection 65 mg, 65 mg, Intravenous, Once FOLLOWED BY [START ON 04/02/2025] PHENobarbital tablet 32.4 mg, 32.4 mg, Oral, Once FOLLOWED BY [START ON 04/03/2025] PHENobarbital tablet 32.4 mg, 32.4 mg, Oral, Once FOLLOWED BY [START ON 04/03/2025] PHENobarbital tablet 32.4 mg, 32.4 mg, Oral, Once, Alonso Cameron APRN Phosphorus Replacement - Follow Nurse / BPA Driven Protocol, , Not Applicable, PRN, Adiel Mckeon MD piperacillin-tazobactam (ZOSYN) 4.5 g IVPB in 100 mL NS MBP (CD), 4.5 g, Intravenous, Q8H, Narda Davila PA-C, 4.5 g at 04/01/25 0510 Potassium Replacement - Follow Nurse / BPA Driven Protocol, , Not Applicable, PRN, Pk Mckeon MD propofol (DIPRIVAN) infusion 10 mg/mL 100 mL, 5-50 mcg/kg/min, Intravenous, Titrated, Narda Davila PA-C, Last Rate: 10.07 mL/hr at 04/01/25 0831, 25 mcg/kg/min at 04/01/25 0831 sodium chloride 0.9 % flush 10 mL, 10 mL, Intravenous, Q12H, Pk Mckeon MD, 10 mL at 04/01/25 0808 sodium chloride 0.9 % flush 10 mL, 10 mL, Intravenous, PRN, Pk Mckeon MD, 10 mL at 03/31/25 203 sodium chloride 0.9 % infusion 40 mL, 40 mL, Intravenous, PRN, Pk Mckeon MD thiamine (B-1) injection 200 mg, 200 mg, Intravenous, Q8H, 200 mg at 04/01/25 0511 FOLLOWED BY [START ON 04/05/2025] thiamine (VITAMIN B-1) tablet 100 mg, 100 mg, Oral, Daily, Narda Davila PA-C * Dmitry Nicolas MD - 04/01/2025 8:28 AM EDT CRITICAL CARE PROGRESS NOTE Patient's name Regine Anguiano : 01/26/1955-70 y.o.-female Admission date 03/31/2025 Length of stay 1 ICU LOS 22h Chief complaint: AMS TODAY: Patient seen examined at bedside, on pressor support, as well as sedated. On lactated Ringer's on 125 cc/h HOSPITAL COURSE: SCHEDULED MEDS: enoxaparin sodium, 40 mg, Subcutaneous, Q24H folic acid 1 mg in sodium chloride 0.9 % 50 mL IVPB, 1 mg, Intravenous, Daily insulin regular, 2-7 Units, Subcutaneous, Q6H levETIRAcetam, 1,000 mg, Intravenous, Q12H midodrine, 10 mg, Oral, Q8H mupirocin, 1 Application, Each Nare, BID nicotine, 1 patch, Transdermal, Q24H pantoprazole, 40 mg, Intravenous, Q24H PHENobarbital, 65 mg, Intravenous, Once Followed by [START ON 04/02/2025] PHENobarbital, 65 mg, Intravenous, Once Followed by [START ON 04/02/2025] PHENobarbital, 32.4 mg, Oral, Once Followed by [START ON 04/03/2025] PHENobarbital, 32.4 mg, Oral, Once Followed by [START ON 04/03/2025] PHENobarbital, 32.4 mg, Oral, Once piperacillin-tazobactam, 4.5 g, Intravenous, Q8H senna-docusate sodium, 2 tablet, Oral, BID sodium chloride, 10 mL, Intravenous, Q12H thiamine (B-1) IV, 200 mg, Intravenous, Q8H Followed by [START ON 04/05/2025] thiamine, 100 mg, Oral, Daily CONTINUOUS INFUSIONS: fentanyl 10 mcg/mL, 50-300 mcg/hr, Last Rate: 150 mcg/hr (04/01/25629) lactated ringers, 125 mL/hr, Last Rate: 125 mL/hr (04/01/25804) norepinephrine, 0.02-0.3 mcg/kg/min, Last Rate: 0.1 mcg/kg/min (04/01/25811) propofol, 5-50 mcg/kg/min, Last Rate: 30 mcg/kg/min (04/01/25629) PHYSICAL EXAMINATION: Temp: [97.3 ??F (36.3 ??C)-98.6 ??F (37 ??C)] 98.4 ??F (36.9 ??C) Heart Rate: [56-102] 56 Resp: [14] 14 BP: (71-135)/(46-100) 126/69 FiO2 (%): [30 %-100 %] 30 % Intake/Output Summary (Last 24 hours) at 04/01/2025 0830 Last data filed at 04/01/2025 0757 Gross per 24 hour Intake 4448.35 ml Output 1283 ml Net 3165.35 ml Mode: VC+/AC FiO2 (%): [30 %-100 %] 30 % S RR: [14] 14 S VT: [420 mL] 420 mL PEEP/CPAP (cm H2O): [5 cm H20] 5 cm H20 MAP (cm H2O): [7.6-8.9] 7.9 Physical Exam Constitutional: Appearance: Normal appearance. Interventions: She is sedated and intubated. HENT: Head: Normocephalic and atraumatic. Mouth/Throat: Mouth: Mucous membranes are moist. Eyes: Extraocular Movements: Extraocular movements intact. Conjunctiva/sclera: Conjunctivae normal. Pupils: Pupils are equal, round, and reactive to light. Cardiovascular: Rate and Rhythm: Normal rate and regular rhythm. Pulses: Normal pulses. Heart sounds: Normal heart sounds. Pulmonary: Effort: Pulmonary effort is normal. She is intubated. Breath sounds: Normal breath sounds. Abdominal: General: Abdomen is flat. Bowel sounds are normal. Palpations: Abdomen is soft. Musculoskeletal: Right lower leg: No edema. Left lower leg: No edema. Neurological: Mental Status: She is alert. DATA REVIEW: 1. Medical chart reviewed in detail 2. I reviewed the actual EKG rhythm strips and Pulse Oximetry data on the monitors 3. I reviewed today's lab values and the report of the most recent Chest X ray. 4. In addition, I have independently reviewed the actual image of the most recent chest Xray Hematology: Results from last 7 days Lab Units 04/01/25 0101 03/31/25 1204 WBC 10*3/mm3 10.92* 5.94 HEMOGLOBIN g/dL 10.8* 10.5* HEMATOCRIT % 32.5* 31.2* PLATELETS 10*3/mm3 102* 75* Chemistry: Estimated Creatinine Clearance: 69.2 mL/min (by C-G formula based on SCr of 0.78 mg/dL). Results from last 7 days Lab Units 04/01/25 0102 03/31/25 1204 SODIUM mmol/L 137 137 POTASSIUM mmol/L 4.6 3.6 CHLORIDE mmol/L 104 100 CO2 mmol/L 20.4* 23.3 BUN mg/dL 12.1 14.5 CREATININE mg/dL 0.78 0.74 GLUCOSE mg/dL 137* 112* Results from last 7 days Lab Units 04/01/25 0102 03/31/25 1204 CALCIUM mg/dL 9.1 9.5 MAGNESIUM mg/dL 3.0* 1.3* PHOSPHORUS mg/dL 3.3 3.2 Hepatic Panel: Results from last 7 days Lab Units 04/01/25 0102 03/31/25 1204 ALBUMIN g/dL 3.5 3.9 TOTAL PROTEIN g/dL 6.0 7.0 BILIRUBIN mg/dL 0.8 1.1 AST (SGOT) U/L 42* 41* ALT (SGPT) U/L 21 23 ALK PHOS U/L 139* 158* Coagulation Labs: Cardiac Labs: Results from last 7 days Lab Units 03/31/25 1204 PROBNP pg/mL 878.0 CK TOTAL U/L 215* Biomarkers: Results from last 7 days Lab Units 03/31/25 1204 LACTATE mmol/L 2.0 PROCALCITONIN ng/mL 0.35* U/A Results from last 7 days Lab Units 03/31/25 1133 COLOR UA Yellow CLARITY UA Clear PH, URINE 6.5 SPECIFIC GRAVITY, URINE >1.030* GLUCOSE UA Negative KETONES UA Negative BILIRUBIN UA Negative PROTEIN UA 100 mg/dL (2+)* BLOOD UA Small (1+)* LEUKOCYTES UA Small (1+)* NITRITE UA Negative UROBILINOGEN UA 1.0 E.U./dL Results from last 7 days Lab Units 03/31/25 1133 RBC UA /HPF 6-10* WBC UA /HPF 6-10* BACTERIA UA /HPF Trace* SQUAM EPITHEL UA /HPF 0-2 HYALINE CASTS UA /LPF 7-12 Arterial Blood Gases: Results from last 7 days Lab Units 04/01/25 0340 03/31/25 1112 PH, ARTERIAL pH units 7.416 7.453* PCO2, ARTERIAL mm Hg 34.0* 34.5* PO2 ART mm Hg 87.7 496.0* FIO2 % 30 100 Microbiology: No results found for: BLOODCX , CULTURES , THROATCX , URINECX , STOOLCX , WOUNDCX Images: XR Chest 1 View Result Date: 04/01/2025 Impression: 1.Increased left basilar atelectasis. 2.Mild discoid atelectasis in the right midlung. Electronically Signed: Adrián Puri MD 04/01/2025 7:52 AM EDT Workstation ID: [id number] MRI Brain Without Contrast Result Date: 04/01/2025 Impression: 1.No acute ischemic change. 2.Small subdural hematoma along the left occipital convexity. 3.Diffuse atrophy and white matter changes compatible sequela of small vessel ischemic disease inthis age group. 4.Bilateral mastoid effusions left greater than right. Findings were communicated to the agency service coordinator, Horace at 6:03 a.m. at the time of interpretation Electronically Signed: Pérez Ardon MD 04/01/2025 6:05 AM EDT Workstation ID: [id number] Result Date: 03/31/2025 Diffuse cerebral dysfunction of mild-moderate degree, nonspecific but most commonly seen due to toxic/metabolic or hypoxemic cause No ongoing seizures are present This report is transcribed using [employer] dictation system. XR Abdomen KUB Result Date: 03/31/2025 Impression: 1.Nasogastric tube tip is within the stomach. 2.Atelectatic changes suggested in the visualized lower lungs. Electronically Signed: Marques Roberto MD 03/31/2025 1:13 PM EDT Workstation ID: [id number] XR Chest 1 View Result Date: 03/31/2025 Appropriate tube placement. Otherwise no acute cardiopulmonary disease. Electronically Signed: Allen Badillo MD 03/31/2025 11:02 AM EDT Workstation ID: [id number] Echo: ASSESSMENT & PLAN Seizure Aspiration pneumonitis -aspiration pneumonitis versus pneumonia Acute hypoxemic respiratory failure -noted from outside hospital where she was intubated. Alcohol dependence with withdrawal delirium -presented with seizures concerning for potential alcohol withdrawal Anemia -uncertain etiology or chronicity *Seizure disorder *EtOH abuse *Concern for possible pneumonia *Tobacco abuse *Subdural hematoma Plan: Continue manage in the ICU Patient loaded with 2 g of Keppra as well as given benzodiazepines. Phenobarbital taper has been initiated -this patient does have a subdural hematoma, will hold barbiturates and start patient on Librium 50 mg 3 times daily Precedex to wean off sedation for extubation Patient is on CIWA protocol. Thiamine folic acid multivitamin DVT and GI prophylaxis Wean ventilator settings is much as possible and attempt to extubate as tolerated Neurosurgery called for consult Bowel regimen: Diet: NPO Diet NPO Type: Strict NPO GI ppx: DVT PPX: VTE Prophylaxis: Pharmacologic VTE prophylaxis orders are present. Advance Directives: Code Status (Patient has no pulse and is not breathing): CPR (Attempt to Resuscitate) Medical Interventions (Patient has pulse or is breathing): Full Support Dispo: ICU I have spent a total of 56 critical care minutes in the management of this patient, apart from any time taken to perform necessary procedures. Critical care time includes time reviewing chart, images, report of images, rounding with nurse, respiratory therapist and pharmacist, and discussions with available family at bedside. Signed: Dmitry Nicolas MD 08:30 EDT 04/01/2025 documented in this encounter H&P Notes * Pk Mckeon MD - 03/31/2025 12:43 PM EDT Pulmonary/Critical Care ICU Note LOS: 0 days Patient Care Team: Provider, No Known as PCP - General Chief Complaint: Seizures and respiratory failure Subjective History of Present Illness The patient is a 70-year-old female with a history of alcohol and tobacco abuse who was found unresponsive on the floor at home. She had an apparent witnessed seizure en route to [facility] emergency department. She was initially given benzodiazepines and subsequently loaded with Keppra after arrival at [facility], receiving 2 g of Keppra. She had an undetectable serum alcohol level, negative urine toxscreen, and negative salicylates and acetaminophen levels. Her lactate level was 6, and CK level was within normal limits. She had elevated leukocytes, and a chest x-ray showed patchy bilateral infiltrates. CTA of the neck revealed nonobstructive carotid disease, and CTA of the head showed no largevessel occlusion. She was reportedly found next to an empty bottle of vodka. [facility], hypoxemia, and seizures and is currently intubated on propofol and fentanyl drips. SOCIAL HISTORY Alcohol: The patient consumes alcohol. Tobacco: The patient smokes cigarettes. History taken from: PMH//Social History were reviewed and updated appropriately in the electronic medical record. Review of Systems: Review of 14 systems was completed with positives and pertinent negatives noted in the subjective section. All other systems reviewed and are negative. Exceptions are noted below: Unable to obtain secondary to endotracheal intubation. Objective Vital Signs Temp: [98.2 ??F (36.8 ??C)] 98.2 ??F (36.8 ??C) Heart Rate: [93-102] 93 Resp: [14] 14 BP: (110-135)/(77-100) 110/77 FiO2 (%): [40 %] 40 % No intake/output data recorded. There is no height or weight on file to calculate BMI. FiO2 (%): [40 %] 40 % S RR: [14] 14 S VT: [420 mL] 420 mL PEEP/CPAP (cm H2O): [5 cm H20] 5 cm H20 MAP (cm H2O): [7.6] 7.6 IV drips: fentanyl 10 mcg/mL, Last Rate: 50 mcg/hr (03/31/25 1120) Pharmacy to Dose enoxaparin (LOVENOX) propofol, Last Rate: 20 mcg/kg/min (03/31/25 1233) Physical Exam: Physical Exam General: The patient is sedated on mechanical ventilator and in no acute distress. HEENT: Head is normocephalic and atraumatic. Pupils are equal, round, and slightly reactive. Oral endotracheal tube is in place. Neck: Trachea is midline. No JVD. Heart: Regular rate and rhythm. No murmur. Lungs: On ventilator, symmetric chest rise. Mild rhonchi bilaterally. Bilateral breath sounds present. Abdomen: Soft, nontender, nondistended. Extremities: No clubbing, cyanosis, or edema. Pulses 2+ dorsalis pedis pulses bilaterally. Neurologic: Patient withdraws to noxious stimuli x4. The above physical exam findings were reviewed and reflect my exam findings as of today's exam. Electronically signed by: Pk Mckeon MD 03/31/25 12:49 EDT Results Review: I reviewed the patient's new clinical results. Results from last 7 days Lab Units 03/31/25 1204 SODIUM mmol/L 137 POTASSIUM mmol/L 3.6 CHLORIDE mmol/L 100 CO2 mmol/L 23.3 BUN mg/dL 14.5 CREATININE mg/dL 0.74 CALCIUM mg/dL 9.5 BILIRUBIN mg/dL 1.1 ALK PHOS U/L 158* ALT (SGPT) U/L 23 AST (SGOT) U/L 41* GLUCOSE mg/dL 112* Results from last 7 days Lab Units 03/31/25 1204 WBC 10*3/mm3 5.94 HEMOGLOBIN g/dL 10.5* HEMATOCRIT % 31.2* PLATELETS 10*3/mm3 75* Results from last 7 days Lab Units 03/31/25 1112 PH, ARTERIAL pH units 7.453* PO2 ART mm Hg 496.0* PCO2, ARTERIAL mm Hg 34.5* HCO3 ART mmol/L 24.1 Results from last 7 days Lab Units 03/31/25 1204 MAGNESIUM mg/dL 1.3* PHOSPHORUS mg/dL 3.2 I reviewed the patient's new imaging including images and reports. Results Labs - Serum alcohol level: Undetectable - Urine tox screen: Negative - Salicylates level: Negative - Acetaminophen level: Negative - Lactate: 6 mmol/L - CK level: Within normal limits - Leukocytes: Elevated Imaging - Chest x-ray: Patchy bilateral infiltrates - Follow-up chest x-ray: Right midlung atelectasis and endotracheal tube in position with otherwiseno acute radiographic chest abnormality - CTA of the neck: Nonobstructive carotid disease - CTA of the head: No large vessel occlusion Medication Review: enoxaparin sodium, 40 mg, Subcutaneous, Q24H folic acid 1 mg in sodium chloride 0.9 % 50 mL IVPB, 1 mg, Intravenous, Daily insulin regular, 2-7 Units, Subcutaneous, Q6H mupirocin, 1 Application, Each Nare, BID nicotine, 1 patch, Transdermal, Q24H pantoprazole, 40 mg, Intravenous, Q24H piperacillin-tazobactam, 4.5 g, Intravenous, Once piperacillin-tazobactam, 4.5 g, Intravenous, Q8H senna-docusate sodium, 2 tablet, Oral, BID sodium chloride, 10 mL, Intravenous, Q12H thiamine (B-1) IV, 200 mg, Intravenous, Q8H Followed by [START ON 04/05/2025] thiamine, 100 mg, Oral, Daily fentanyl 10 mcg/mL, 50-300 mcg/hr, Last Rate: 50 mcg/hr (03/31/25 1120) Pharmacy to Dose enoxaparin (LOVENOX), propofol, 5-50 mcg/kg/min, Last Rate: 20 mcg/kg/min (03/31/25 1233) Assessment & Plan Seizure Aspiration pneumonitis -aspiration pneumonitis versus pneumonia Acute hypoxemic respiratory failure -noted from outside hospital where she was intubated. Alcohol dependence with withdrawal delirium -presented with seizures concerning for potential alcohol withdrawal Anemia -uncertain etiology or chronicity Assessment & Plan 1. Seizures. The patient was found unresponsive at home and had a witnessed seizure en route to the emergency department. She was initially given benzodiazepines and subsequently loaded with 2 g of Keppra after arrival. Neurology has been consulted. An EEG will be conducted today, and sedation will be graduallyreduced to evaluate her mental status. There is no evidence of large vessel occlusion (LVO) on CT angiogram of the neck and head, but an MRI of the brain will likely be needed. 2. Respiratory issues. Initial chest x-ray indicated patchy bilateral infiltrates, which appear to have cleared on follow-up imaging. However, she presents with leukocytosis and is at risk for aspiration and pneumonia. Laboratory tests will be conducted, and empirical treatment for potential aspiration pneumonia will be initiated. Continue mechanical ventilation and adjust settings to optimize ventilation and oxygenation and minimize barotrauma. 3. Alcohol abuse. The patient was reportedly found next to an empty bottle of vodka. Possible explanation of seizuresis alcohol withdrawal. She will be monitored using the CIWA protocol and benzodiazepines. If activewithdrawal symptoms are observed, a phenobarbital protocol will be considered. Thiamine, folic acid, and multivitamin will be administered. 4. Tobacco abuse. She is a known smoker. Counseling for smoking cessation will be provided when appropriate, and nicotine replacement therapy will likely be initiated. 5. Gastrointestinal issues. Prophylaxis for peptic ulcer will be provided with Protonix. 6. Deep vein thrombosis prophylaxis. Lovenox will be administered for DVT prophylaxis. Patient is critically ill secondary to tenuous respiratory and neurologic status in the setting of seizures and respiratory failure and has high risk of life- threatening decompensation in condition. As such, the patient requires continuous monitoring and frequent reassessment for consideration of adjustment in management to minimize this risk. I personally reassessed the patient multiple times today. Critical care time : 45 minutes spent by me personally and independently.(This excludes time spent performing separately reportable procedures and services). Critical care time includes high complexity decision making to assess, manipulate, and support vital organ system failure in this individual who has impairment of one or more vital organ systems such that there is a high probability of imminent or life threatening deterioration in the patient???s condition. Electronically signed by: Pk Mckeon MD 03/31/25 12:49 EDT Patient or patient guest experience representative verbalized consent for the use of Ambient Listening during the visit for chart documentation. *Exception: for ICU patients or for instances where consent for use was not given, active listeningwas used only for dictation and was not used to record patient or family. * Pk Mckeon MD - 03/31/2025 10:44 AM EDT See my H & P filed under Progress Notes. documented in this encounter Consult Notes * Dannie Lopez MD - 04/01/2025 10:45 AM EDTAssociated Order(s): IP CONSULT TO NEUROSURGERY NEUROSURGERY CONSULTATION Referring Provider: Allen Sinclair MD Patient Care Team: Provider, No Known as PCP - General Chief Complaint: Altered mental status, seizure History of Present Illness: Regine Anguiano is a 70 y.o. female with history of alcohol abuse who presented to [facility] ICU as a transfer from [facility] for higher level of care. Patient was found down for an unknown amount of time, reportedly next to a bottle of vodka. EMS wascalled who witnessed seizure-like activity. She was given Versed 5 mg en route. She was loaded with2 g Keppra at [facility]. CT head was unremarkable. CTA showed chronic atherosclerosis in bilateral ICAs. She had further seizure-like activity while in the CT. She was ultimately intubated. Urine drug screen was negative, alcohol level <10. History: No past medical history on file., No past surgical history on file., No family history on file., Social History[1], Prescriptions Prior to Admission[2] Allergies: Patient has no known allergies. Physical Exam: Vital Signs: Blood pressure 90/49, pulse 60, temperature 98.4 ??F (36.9 ??C), temperature source Bladder, resp. rate 14, height 165.1 cm (65 ), weight 63.5 kg (139 lb 15.9 oz), SpO2 98%. The patient is sedated on fentanyl, propofol. She was recently loaded on these as the patient is about to go down for a CT. This greatly limited my physical exam. Per nursing, prior to her heavy sedation she was able to move all extremities, though not with commands, with the right lower extremity moved slightly less in comparison. The patient did not follow commands for fine motor testing. Pupils are round, equal, reactive to light. Reflexes are intact in bilateral upper extremities. Difficult to elicit in lower extremities. The patient does not withdraw with nailbed pressure. Data Review: MRI of the brain dated 03/31/2025 (21:27) demonstrates diffuse atrophy and white matter changes. Radiology notes a small subdural hematoma along the left occipital convexity. No evidence of mass, mass effect, or midline shift. CBC: Lab 04/01/25 0101 03/31/25 1204 WBC 10.92* 5.94 HEMOGLOBIN 10.8* 10.5* HEMATOCRIT 32.5* 31.2* PLATELETS 102* 75* NEUTROS ABS 7.42* 4.61 IMMATURE GRANS (ABS) 0.06* 0.03 LYMPHS ABS 2.22 0.95 MONOS ABS 1.01* 0.32 EOS ABS 0.17 0.02 MCV 95.0 89.9 CMP: Lab 04/01/25 0102 03/31/25 1204 SODIUM 137 137 POTASSIUM 4.6 3.6 CHLORIDE 104 100 CO2 20.4* 23.3 ANION GAP 12.6 13.7 BUN 12.1 14.5 CREATININE 0.78 0.74 EGFR 82.9 88.3 GLUCOSE 137* 112* CALCIUM 9.1 9.5 MAGNESIUM 3.0* 1.3* PHOSPHORUS 3.3 3.2 TOTAL PROTEIN 6.0 7.0 ALBUMIN 3.5 3.9 GLOBULIN 2.5 3.1 ALT (SGPT) 21 23 AST (SGOT) 42* 41* BILIRUBIN 0.8 1.1 ALK PHOS 139* 158* Diagnosis: 1. Seizures 2. History of alcohol abuse 3. Tobacco abuse 4. Subdural hematoma Treatment Recommendations: The subdural hematoma found on MRI is presently does not warrant neurosurgical intervention. I am not sure it is clinically significant. I will await the upcoming head CT. Treatment will likely need to remain symptomatic for the patient's seizures. Addendum: CT head dated today demonstrates stable subdural hematoma in the posterior margin of leftoccipital region. Neelam Gaytan PA-C 04/01/25 10:45 EDT As per Ms. Gaytan above. The patient has a minuscule left occipital subdural hematoma that is not clinically significant in this setting. Management as per neurology and her primary service. Dannie Lopez M.D. [1] [2] No medications prior to admission. * Lowell Do, DO - 03/31/2025 12:28 PM EDTAssociated Order(s): IP CONSULT TO NEUROLOGY [facility] Neurology Consult Note Patient Name: Regine Anguiano : 1955 Primary Care Physician: Provider, No Known Referring Physician: Allen Sinclair MD Date of admission: 03/31/2025 Subjective Reason for Consult: Seizures Regine Anguiano is a 70 y.o. female with history of alcohol abuse who presented to [facility] ICU as a transfer from OSH after being found down. Patient was found down for an unknown amount of time. EMS was called who witnessed seizure-like activity. She was given Versed 5 mg and route. At OSH CT head was unremarkable. CTA showed chronic atherosclerosis in bilateral ICAs. She had further seizure-like activity while in the CT, she was given additional dose of Versed 2 mg, loaded with Keppra 2 g. Labs at OSH showed WBC 7.8, ammonia 81, CK 53, UDS, Tylenol and salicylate levels negative, alcohol negative. She was transferred to [facility] for higher level of care Per bedside RN, they found loose tobacco in her brief. She is moving all extremities but not to command. Reported history of alcohol abuse. No family at bedside Review Of Systems Unable to obtain Personal History No past medical history on file. No past surgical history on file. Family History: family history is not on file. Otherwise pertinent FHx was reviewed and not pertinent to current issue. Social History: Home Medications: Current Medications: Current Medications[1] Allergies: Allergies[2] Objective Vitals: Temp: [98.2 ??F (36.8 ??C)] 98.2 ??F (36.8 ??C) Heart Rate: [93-102] 93 Resp: [14] 14 BP: (110-135)/(77-100) 110/77 FiO2 (%): [40 %] 40 % Neurological Examination sedated on propofol, fentanyl Mental status: does not open eyes to noxious stimulation Speech/language: intubated, does not follow commands Cranial nerves: PERRL. Gaze conjugate and midline. Does not blink to threat. Does not track. Face appears symmetric. Motor: No spontaneous movement. flaccid tone. Reflexes: 2+ in bilateral biceps, brachioradialis, 0+ at bilateral patella's, Achilles. Toes equivocal Sensation: Withdraws briskly in all extremities to nailbed pressure Laboratory Results: No results found for: GLUCOSE , CALCIUM , NA , K , CO2 , CL , BUN , CREATININE , EGFRIFAFRI , EGFRIFNONA , BCR , ANIONGAP Lab Results Component Value Date WBC 5.94 03/31/2025 HGB 10.5 (L) 03/31/2025 HCT 31.2 (L) 03/31/2025 MCV 89.9 03/31/2025 PLT 75 (L) 03/31/2025 No results found for: CHOL No results found for: HDL No results found for: LDL No results found for: TRIG No results found for: HGBA1C No results found for: [id number] No results found for: FOLATE Images/Procedures CT head, CTA from OSH report only 03/31/2025 CT head unremarkable, CTA with atherosclerosis in bilateral ICAs Assessment / Plan Active Hospital Problems: Found down History of alcohol abuse Witnessed seizure-like activity Brief Patient Summary: Regine Anguiano is a 70 y.o. female with history of alcohol abuse who presented to [facility] ICU as a transfer from OSH after being found down. EMS witnessed seizure- like event, followed by a second event in the CT scanner. She was given Versed 5 mg, Versed 2 mg and Keppra 2 g. UDS negative, EtOH negative. She was transferred to [facility] ICU for further care. She is currently intubated, does not follow comman ds, withdraws to pain in all 4 extremities. Limited history. Possible alcohol withdrawal seizure. With unknown history will continue Keppra fornow. Agree with phenobarbital alcohol taper and weaning propofol Plan: - Routine EEG - MRI brain without contrast - Phenobarb taper/CIWA per ICU - Folate, high-dose thiamine - Wean sedation as able I have discussed the above with the patient, bedside RN, financial dealers Time spent with patient: 35 minutes in [id number] evaluation and management of the patient. Lowell Do DO [1] Current Facility-Administered Medications: sennosides-docusate (PERICOLACE) 8.6-50 MG per tablet 2 tablet, 2 tablet, Oral, BID AND polyethylene glycol (MIRALAX) packet 17 g, 17 g, Oral, Daily PRN AND bisacodyl (DULCOLAX) EC tablet 5 mg, 5 mg, Oral, Daily PRN AND bisacodyl (DULCOLAX) suppository 10 mg, 10 mg, Rectal, Daily PRN, Pk Mckeon MD cefTRIAXone (ROCEPHIN) 1,000 mg in sodium chloride 0.9 % 100 mL MBP, 1,000 mg, Intravenous, Q24H, Narda Davila PA-C dextrose (D50W) (25 g/50 mL) IV injection 25 g, 25 g, Intravenous, Q15 Min PRN, Narda Davila PA-C dextrose (GLUTOSE) oral gel 15 g, 15 g, Oral, Q15 Min PRN, Narda Davila PA-C enoxaparin sodium (LOVENOX) syringe 40 mg, 40 mg, Subcutaneous, Q24H, Narda Davila PA-C fentaNYL 2500 mcg/250 mL NS infusion, 50-300 mcg/hr, Intravenous, Titrated, Pk Mckeon MD, Last Rate: 5 mL/hr at 03/31/25 1120, 50 mcg/hr at 03/31/25 1120 folic acid 1 mg in sodium chloride 0.9 % 50 mL IVPB, 1 mg, Intravenous, Daily, Narda Davila PA-C glucagon (GLUCAGEN) injection 1 mg, 1 mg, Intramuscular, Q15 Min PRN, Narda Davila PA-C insulin regular (humuLIN R,novoLIN R) injection 2-7 Units, 2-7 Units, Subcutaneous, Q6H, Narda Davila PA-C Magnesium Standard Dose Replacement - Follow Nurse / BPA Driven Protocol, , Not Applicable, PRN, Narda Davila PA-C mupirocin (BACTROBAN) 2 % nasal ointment 1 Application, 1 Application, Each Nare, BID, Pk Mckeon MD nitroglycerin (NITROSTAT) SL tablet 0.4 mg, 0.4 mg, Sublingual, Q5 Min PRN, Pk Mckeon MD pantoprazole (PROTONIX) injection 40 mg, 40 mg, Intravenous, Q24H, Narda Davila PA-C Pharmacy to Dose enoxaparin (LOVENOX), , Not Applicable, Continuous PRN, Pk Mckeon MD propofol (DIPRIVAN) infusion 10 mg/mL 100 mL, 5-50 mcg/kg/min, Intravenous, Titrated, Narda Davila PA-C, Last Rate: 16.1 mL/hr at 03/31/25 1057, 30 mcg/kg/min at 03/31/25 1100 sodium chloride 0.9 % flush 10 mL, 10 mL, Intravenous, Q12H, Pk Mckeon MD, 10 mL at 03/31/25 1222 sodium chloride 0.9 % flush 10 mL, 10 mL, Intravenous, PRN, Pk Mckeon MD sodium chloride 0.9 % infusion 40 mL, 40 mL, Intravenous, PRN, Pk Mckeon MD thiamine (B-1) injection 200 mg, 200 mg, Intravenous, Q8H FOLLOWED BY [START ON 04/05/2025] thiamine (VITAMIN B-1) tablet 100 mg, 100 mg, Oral, Daily, Narda Davila PA-C [2] No Known Allergies documented in this encounter Nursing Notes * Lula Vu RN - 04/09/2025 11:15 AM EDT Report called to [facility] at [facility] * Kami Moreno RN - 04/09/2025 6:35 AM EDT Problem: Adult Inpatient Plan of Care Goal: Plan of Care Review Outcome: Progressing Flowsheets (Taken 04/08/2025 1454 by Corin Hightower, PT) Progress: improving Plan of Care Reviewed With: patient Goal: Patient-Specific Goal (Individualized) Outcome: Progressing Goal: Absence of Hospital-Acquired Illness or Injury Outcome: Progressing Intervention: Identify and Manage Fall Risk Recent Flowsheet Documentation Taken 04/09/2025 0600 by Kami Moreno RN Safety Promotion/Fall Prevention: activity supervised clutter free environment maintained fall prevention program maintained lighting adjusted safety round/check completed room organization consistent Taken 04/09/2025 0400 by Kami Moreno RN Safety Promotion/Fall Prevention: activity supervised clutter free environment maintained elopement precautions lighting adjusted room organization consistent safety round/check completed Taken 04/09/2025 0200 by Kami Moreno RN Safety Promotion/Fall Prevention: activity supervised clutter free environment maintained fall prevention program maintained safety round/check completed room organization consistent Taken 04/09/2025 0000 by Kami Moreno RN Safety Promotion/Fall Prevention: activity supervised clutter free environment maintained fall prevention program maintained lighting adjusted safety round/check completed room organization consistent Taken 04/08/2025 2200 by Kami Moreno RN Safety Promotion/Fall Prevention: activity supervised clutter free environment maintained fall prevention program maintained lighting adjusted safety round/check completed room organization consistent Taken 04/08/2025 2000 by Kami Moreno RN Safety Promotion/Fall Prevention: activity supervised clutter free environment maintained fall prevention program maintained safety round/check completed room organization consistent Intervention: Prevent Skin Injury Recent Flowsheet Documentation Taken 04/09/2025 0600 by Kami Moreno RN Body Position: position changed independently Skin Protection: incontinence pads utilized Taken 04/09/2025 0400 by Kami Moreno RN Body Position: position changed independently Skin Protection: incontinence pads utilized Taken 04/09/2025 0200 by Kami Moreno RN Body Position: position changed independently Skin Protection: incontinence pads utilized Taken 04/09/2025 0000 by Kami Moreno RN Body Position: position changed independently Skin Protection: incontinence pads utilized Taken 04/08/2025 2200 by Kami Moreno RN Body Position: position changed independently Skin Protection: incontinence pads utilized Taken 04/08/20251999 by Kami Moreno RN Body Position: position changed independently Skin Protection: incontinence pads utilized Intervention: Prevent Infection Recent Flowsheet Documentation Taken 04/09/2025 0600 by Kami Moerno RN Infection Prevention: environmental surveillance performed Taken 04/09/2025 0400 by Kami Moreno RN Infection Prevention: environmental surveillance performed Taken 04/09/2025 0200 by Kami Moreno RN Infection Prevention: environmental surveillance performed Taken 04/09/2025 0000 by Kami Moreno RN Infection Prevention: environmental surveillance performed Taken 04/08/2025 2200 by Kami Moreno RN Infection Prevention: environmental surveillance performed Taken 04/08/20251999 by Kami Moreno RN Infection Prevention: environmental surveillance performed Goal: Readiness for Transition of Care Outcome: Progressing Problem: Mechanical Ventilation Invasive Goal: Optimal Nutrition Delivery Outcome: Progressing Goal: Absence of Device-Related Skin and Tissue Injury Outcome: Progressing Problem: Skin Injury Risk Increased Goal: Skin Health and Integrity Outcome: Progressing Intervention: Optimize Skin Protection Recent Flowsheet Documentation Taken 04/09/2025 0600 by Kami Moreno RN Activity Management: activity encouraged Pressure Reduction Techniques: frequent weight shift encouraged Head of Bed (HOB) Positioning: HOB elevated Pressure Reduction Devices: pressure-redistributing mattress utilized Skin Protection: incontinence pads utilized Taken 04/09/2025 0400 by Kami Moreno RN Activity Management: activity encouraged Pressure Reduction Techniques: frequent weight shift encouraged Head of Bed (HOB) Positioning: HOB elevated Pressure Reduction Devices: pressure-redistributing mattress utilized Skin Protection: incontinence pads utilized Taken 04/09/2025 0200 by Kami Moreno RN Activity Management: activity encouraged Pressure Reduction Techniques: frequent weight shift encouraged Head of Bed (HOB) Positioning: HOB elevated Pressure Reduction Devices: pressure-redistributing mattress utilized Skin Protection: incontinence pads utilized Taken 04/09/2025 0000 by Kami Moreno RN Activity Management: activity encouraged Pressure Reduction Techniques: frequent weight shift encouraged Head of Bed (HOB) Positioning: HOB elevated Pressure Reduction Devices: pressure-redistributing mattress utilized Skin Protection: incontinence pads utilized Taken 04/08/2025 2200 by Kami Moreno RN Activity Management: activity encouraged Pressure Reduction Techniques: frequent weight shift encouraged Head of Bed (HOB) Positioning: HOB elevated Pressure Reduction Devices: pressure-redistributing mattress utilized Skin Protection: incontinence pads utilized Taken 04/08/20251999 by Kami Moreno RN Activity Management: activity encouraged Pressure Reduction Techniques: frequent weight shift encouraged Head of Bed (HOB) Positioning: [facility] elevated Pressure Reduction Devices: pressure-redistributing mattress utilized Skin Protection: incontinence pads utilized Problem: Comorbidity Management Goal: Maintenance of Seizure Control Outcome: Progressing Intervention: Maintain Seizure Symptom Control Recent Flowsheet Documentation Taken 04/09/2025 0600 by Kami Moreno RN Medication Review/Management: medications reviewed Taken 04/09/2025 0400 by Kami Moreno RN Medication Review/Management: medications reviewed Taken 04/09/2025 0200 by Kami Moreno RN Medication Review/Management: medications reviewed Taken 04/09/2025 0000 by Kami Moreno RN Medication Review/Management: medications reviewed Taken 04/08/2025 2200 by Kami Moreno RN Medication Review/Management: medications reviewed Taken 04/08/20251999 by Kami Moreno RN Medication Review/Management: medications reviewed Goal: Maintenance of Seizure Control Outcome: Progressing Intervention: Maintain Seizure Symptom Control Recent Flowsheet Documentation Taken 04/09/2025 0600 by Kami Moreno RN Medication Review/Management: medications reviewed Taken 04/09/2025 0400 by Kami Moreno RN Medication Review/Management: medications reviewed Taken 04/09/2025 0200 by Kami Moreno RN Medication Review/Management: medications reviewed Taken 04/09/2025 0000 by Kami Moreno RN Medication Review/Management: medications reviewed Taken 04/08/2025 2200 by Kami Moreno RN Medication Review/Management: medications reviewed Taken 04/08/20251999 by Kami Moerno RN Medication Review/Management: medications reviewed Problem: Violence Risk or Actual Goal: Anger and Impulse Control Outcome: Progressing Intervention: Minimize Safety Risk Recent Flowsheet Documentation Taken 04/09/2025 0600 by Kami Moreno RN Enhanced Safety Measures: bed alarm set Taken 04/09/2025 0400 by Kami Moreno RN Behavior Management: impulse control promoted Enhanced Safety Measures: bed alarm set Taken 04/09/2025 0200 by Kami Moreno RN Behavior Management: impulse control promoted Enhanced Safety Measures: bed alarm set Taken 04/09/2025 0000 by Kami Moreno RN De-Escalation Techniques: appropriate behavior reinforced Enhanced Safety Measures: bed alarm set Taken 04/08/2025 2200 by Kami Moreno RN Enhanced Safety Measures: bed alarm set Taken 04/08/20251999 by Kami Moreno RN Behavior Management: impulse control promoted De-Escalation Techniques: appropriate behavior reinforced Enhanced Safety Measures: bed alarm set Intervention: Promote Self-Control Recent Flowsheet Documentation Taken 04/09/2025 0400 by Kami Moreno RN Supportive Measures: active listening utilized Environmental Support: calm environment promoted Taken 04/09/2025 0200 by Kami Moreno RN Supportive Measures: active listening utilized Environmental Support: calm environment promoted Taken 04/08/20251999 by Kami Moreno RN Supportive Measures: active listening utilized positive reinforcement provided Environmental Support: calm environment promoted Problem: Fall Injury Risk Goal: Absence of Fall and Fall-Related Injury Outcome: Progressing Intervention: Identify and Manage Contributors Recent Flowsheet Documentation Taken 04/09/2025 0600 by Kami Moreno RN Medication Review/Management: medications reviewed Taken 04/09/2025 0400 by Kami Moreno RN Medication Review/Management: medications reviewed Taken 04/09/2025 0200 by Kami Moreno RN Medication Review/Management: medications reviewed Taken 04/09/2025 0000 by Kami Moreno RN Medication Review/Management: medications reviewed Taken 04/08/2025 2200 by Kami Moreno RN Medication Review/Management: medications reviewed Taken 04/08/20251999 by Kami Moreno RN Medication Review/Management: medications reviewed Intervention: Promote Injury-Free Environment Recent Flowsheet Documentation Taken 04/09/2025 0600 by Kami Moreno RN Safety Promotion/Fall Prevention: activity supervised clutter free environment maintained fall prevention program maintained lighting adjusted safety round/check completed room organization consistent Taken 04/09/2025 0400 by Kami Moreno RN Safety Promotion/Fall Prevention: activity supervised clutter free environment maintained elopement precautions lighting adjusted room organization consistent safety round/check completed Taken 04/09/2025 0200 by Kami Moreno RN Safety Promotion/Fall Prevention: activity supervised clutter free environment maintained fall prevention program maintained safety round/check completed room organization consistent Taken 04/09/2025 0000 by Kami Moreno RN Safety Promotion/Fall Prevention: activity supervised clutter free environment maintained fall prevention program maintained lighting adjusted safety round/check completed room organization consistent Taken 04/08/2025 2200 by Kami Moreno RN Safety Promotion/Fall Prevention: activity supervised clutter free environment maintained fall prevention program maintained lighting adjusted safety round/check completed room organization consistent Taken 04/08/20251999 by Kami Moreno RN Safety Promotion/Fall Prevention: activity supervised clutter free environment maintained fall prevention program maintained safety round/check completed room organization consistent Goal Outcome Evaluation: * Corin Hightower, PT - 04/08/2025 2:15 PM EDT Goal Outcome Evaluation: Plan of Care Reviewed With: patient Progress: improving Outcome Evaluation: Pt with significant improvement in mobility tasks and command following this session. Pt able to ambulate in room with 1-person assist this date with FWW, however limited by visual hallucinations. Pt with good response to verbal cueing for improved transfer technique and walker management. Continue to rec SNF upon dc. Anticipated Discharge Disposition (PT): [facility] facility * Salina Allan RN - 04/08/2025 5:22 AM EDT Problem: Adult Inpatient Plan of Care Goal: Plan of Care Review Outcome: Progressing Goal: Patient-Specific Goal (Individualized) Outcome: Progressing Goal: Absence of Hospital-Acquired Illness or Injury Outcome: Progressing Intervention: Identify and Manage Fall Risk Recent Flowsheet Documentation Taken 04/08/2025 0400 by Salina Allan RN Safety Promotion/Fall Prevention: activity supervised assistive device/personal items within reach clutter free environment maintained fall prevention program maintained room organization consistent safety round/check completed Taken 04/08/2025 0200 by Salina Allan RN Safety Promotion/Fall Prevention: safety round/check completed room organization consistent activity supervised assistive device/personal items within reach clutter free environment maintained fall prevention program maintained Taken 04/08/2025 0000 by Salina Allan RN Safety Promotion/Fall Prevention: safety round/check completed room organization consistent activity supervised assistive device/personal items within reach clutter free environment maintained fall prevention program maintained Taken 04/07/2025 2200 by Salina Allan RN Safety Promotion/Fall Prevention: safety round/check completed room organization consistent activity supervised assistive device/personal items within reach clutter free environment maintained fall prevention program maintained Taken 04/07/2025 2000 by Salina Allan RN Safety Promotion/Fall Prevention: safety round/check completed room organization consistent activity supervised assistive device/personal items within reach clutter free environment maintained fall prevention program maintained nonskid shoes/slippers when out of bed Intervention: Prevent Skin Injury Recent Flowsheet Documentation Taken 04/08/2025 0400 by Salina Allan RN Body Position: right position maintained heels elevated Skin Protection: silicone border foam - heel incontinence pads utilized Taken 04/08/2025 0200 by Salina Allan RN Body Position: left position maintained legs elevated Skin Protection: silicone border foam - heel incontinence pads utilized Taken 04/08/2025 0000 by Salina Allan RN Body Position: supine Skin Protection: silicone border foam - heel incontinence pads utilized Taken 04/07/20252199 by Salina Allan RN Body Position: right turned Skin Protection: silicone border foam - sacrum/coccyx silicone border foam - heel incontinence pads utilized Taken 04/07/20251999 by Salina Allan RN Body Position: sitting up in bed Skin Protection: silicone border foam - sacrum/coccyx silicone border foam - heel incontinence pads utilized Intervention: Prevent and Manage VTE (Venous Thromboembolism) Risk Recent Flowsheet Documentation Taken 04/08/2025 0000 by Salina Allan RN VTE Prevention/Management: (see MAR) SCDs (sequential compression devices) off other (see comments) Taken 04/07/20251999 by Salina Allan RN VTE Prevention/Management: (see MAR) SCDs (sequential compression devices) off other (see comments) Intervention: Prevent Infection Recent Flowsheet Documentation Taken 04/08/2025 0400 by Salina Allan RN Infection Prevention: hand hygiene promoted rest/sleep promoted environmental surveillance performed Taken 04/08/2025 0200 by Salina Allan RN Infection Prevention: hand hygiene promoted environmental surveillance performed rest/sleep promoted Taken 04/08/2025 0000 by Salina Allan RN Infection Prevention: hand hygiene promoted environmental surveillance performed rest/sleep promoted Taken 04/07/20252199 by Salina Allan RN Infection Prevention: hand hygiene promoted rest/sleep promoted environmental surveillance performed Taken 04/07/20251999 by Salina Allan RN Infection Prevention: hand hygiene promoted rest/sleep promoted environmental surveillance performed Goal: Readiness for Transition of Care Outcome: Progressing Problem: Mechanical Ventilation Invasive Goal: Optimal Nutrition Delivery Outcome: Progressing Goal: Absence of Device-Related Skin and Tissue Injury Outcome: Progressing Intervention: Maintain Skin and Tissue Health Recent Flowsheet Documentation Taken 04/08/2025 0400 by Salina Allan RN Device Skin Pressure Protection: pressure points protected positioning supports utilized Taken 04/08/2025 0200 by Salina Allan RN Device Skin Pressure Protection: pressure points protected positioning supports utilized Taken 04/08/2025 0000 by Salina Allan RN Device Skin Pressure Protection: pressure points protected positioning supports utilized Taken 04/07/20252199 by Salina Allan RN Device Skin Pressure Protection: pressure points protected positioning supports utilized Taken 04/07/20251999 by Salina Allan RN Device Skin Pressure Protection: pressure points protected positioning supports utilized Problem: Skin Injury Risk Increased Goal: Skin Health and Integrity Outcome: Progressing Intervention: Optimize Skin Protection Recent Flowsheet Documentation Taken 04/08/2025 0400 by Salina Allan RN Activity Management: activity encouraged Pressure Reduction Techniques: frequent weight shift encouraged heels elevated off bed pressure points protected weight shift assistance provided Head of Bed (HOB) Positioning: HOB elevated Pressure Reduction Devices: positioning supports utilized heel offloading device utilized Skin Protection: silicone border foam - heel incontinence pads utilized Taken 04/08/2025 0200 by Salina Allan RN Activity Management: activity encouraged Pressure Reduction Techniques: frequent weight shift encouraged heels elevated off bed pressure points protected weight shift assistance provided Head of Bed (HOB) Positioning: HOB elevated Pressure Reduction Devices: positioning supports utilized pressure-redistributing mattress utilized heel offloading device utilized Skin Protection: silicone border foam - heel incontinence pads utilized Taken 04/08/2025 by Salina Allan RN Activity Management: activity encouraged Pressure Reduction Techniques: frequent weight shift encouraged heels elevated off bed pressure points protected Head of Bed (HOB) Positioning: HOB elevated Pressure Reduction Devices: positioning supports utilized pressure-redistributing mattress utilized heel offloading device utilized Skin Protection: silicone border foam - heel incontinence pads utilized Taken 04/07/20252199 by Salina Allan RN Activity Management: activity encouraged Pressure Reduction Techniques: frequent weight shift encouraged heels elevated off bed pressure points protected Head of Bed (HOB) Positioning: HOB elevated Pressure Reduction Devices: positioning supports utilized pressure-redistributing mattress utilized heel offloading device utilized Skin Protection: silicone border foam - sacrum/coccyx silicone border foam - heel incontinence pads utilized Taken 04/07/20251999 by Salina Allan RN Activity Management: activity encouraged Pressure Reduction Techniques: frequent weight shift encouraged heels elevated off bed pressure points protected Head of Bed (HOB) Positioning: HOB elevated Pressure Reduction Devices: positioning supports utilized heel offloading device utilized pressure-redistributing mattress utilized Skin Protection: silicone border foam - sacrum/coccyx silicone border foam - heel incontinence pads utilized Problem: Comorbidity Management Goal: Maintenance of Seizure Control Outcome: Progressing Intervention: Maintain Seizure Symptom Control Recent Flowsheet Documentation Taken 04/08/2025 0400 by Salina Allan RN Medication Review/Management: medications reviewed Taken 04/07/20252199 by Salina Allan RN Medication Review/Management: medications reviewed Taken 04/07/20251999 by Salina Allan RN Sensory Stimulation Regulation: care clustered lighting decreased quiet environment promoted Medication Review/Management: medications reviewed Goal: Maintenance of Seizure Control Outcome: Progressing Intervention: Maintain Seizure Symptom Control Recent Flowsheet Documentation Taken 04/08/2025 0400 by Salina Allan RN Medication Review/Management: medications reviewed Taken 04/07/20252199 by Salina Allan RN Medication Review/Management: medications reviewed Taken 04/07/20251999 by Salina Allan RN Sensory Stimulation Regulation: care clustered lighting decreased quiet environment promoted Medication Review/Management: medications reviewed Problem: Violence Risk or Actual Goal: Anger and Impulse Control Outcome: Progressing Intervention: Minimize Safety Risk Recent Flowsheet Documentation Taken 04/08/2025 0400 by Salina Allan RN Enhanced Safety Measures: bed alarm set Taken 04/08/2025 0200 by Salina Allan RN Enhanced Safety Measures: bed alarm set Taken 04/08/2025 0000 by Salina Allan RN Enhanced Safety Measures: bed alarm set Taken 04/07/20252199 by Salina Allan RN Enhanced Safety Measures: bed alarm set Taken 04/07/20251999 by Salina Allan RN Behavior Management: impulse control promoted Sensory Stimulation Regulation: care clustered lighting decreased quiet environment promoted Enhanced Safety Measures: bed alarm set Intervention: Promote Self-Control Recent Flowsheet Documentation Taken 04/07/20251999 by Salina Allan RN Supportive Measures: relaxation techniques promoted Environmental Support: calm environment promoted Problem: Fall Injury Risk Goal: Absence of Fall and Fall-Related Injury Outcome: Progressing Intervention: Identify and Manage Contributors Recent Flowsheet Documentation Taken 04/08/2025399 by Salina Allan RN Medication Review/Management: medications reviewed Taken 04/07/20252199 by Salina Allan RN Medication Review/Management: medications reviewed Taken 04/07/20251999 by Salina Allan RN Medication Review/Management: medications reviewed Intervention: Promote Injury-Free Environment Recent Flowsheet Documentation Taken 04/08/2025 0400 by Salina Allan RN Safety Promotion/Fall Prevention: activity supervised assistive device/personal items within reach clutter free environment maintained fall prevention program maintained room organization consistent safety round/check completed Taken 04/08/2025 0200 by Salina Allan RN Safety Promotion/Fall Prevention: safety round/check completed room organization consistent activity supervised assistive device/personal items within reach clutter free environment maintained fall prevention program maintained Taken 04/08/2025 0000 by Salina Allan RN Safety Promotion/Fall Prevention: safety round/check completed room organization consistent activity supervised assistive device/personal items within reach clutter free environment maintained fall prevention program maintained Taken 04/07/2025 2200 by Salina Allan RN Safety Promotion/Fall Prevention: safety round/check completed room organization consistent activity supervised assistive device/personal items within reach clutter free environment maintained fall prevention program maintained Taken 04/07/2025 2000 by Salina Allan RN Safety Promotion/Fall Prevention: safety round/check completed room organization consistent activity supervised assistive device/personal items within reach clutter free environment maintained fall prevention program maintained nonskid shoes/slippers when out of bed Goal Outcome Evaluation: * Imelda Gordillo MS CF-HYDRAULIC ENGINEER - 04/07/2025 12:05 PM EDT Goal Outcome Evaluation: Plan of Care Reviewed With: patient Anticipated Discharge Disposition (HYDRAULIC ENGINEER): [facility] facility HYDRAULIC ENGINEER Swallowing Diagnosis: mild, oral dysphagia, pharyngeal dysphagia (04/07/25 1030) * Hattie Morales RN - 04/07/2025 4:30 AM EDT Problem: Adult Inpatient Plan of Care Goal: Plan of Care Review Outcome: Progressing Goal: Patient-Specific Goal (Individualized) Outcome: Progressing Goal: Absence of Hospital-Acquired Illness or Injury Outcome: Progressing Intervention: Identify and Manage Fall Risk Recent Flowsheet Documentation Taken 04/07/2025 0400 by Hattie Morales RN Safety Promotion/Fall Prevention: activity supervised assistive device/personal items within reach clutter free environment maintained fall prevention program maintained lighting adjusted nonskid shoes/slippers when out of bed room organization consistent safety round/check completed Taken 04/07/2025 0200 by Hattie Morales RN Safety Promotion/Fall Prevention: activity supervised assistive device/personal items within reach clutter free environment maintained fall prevention program maintained lighting adjusted nonskid shoes/slippers when out of bed room organization consistent safety round/check completed Taken 04/07/2025 0000 by Hattie Morales RN Safety Promotion/Fall Prevention: activity supervised assistive device/personal items within reach clutter free environment maintained fall prevention program maintained lighting adjusted nonskid shoes/slippers when out of bed room organization consistent safety round/check completed Taken 04/06/20252199 by Hattie Morales RN Safety Promotion/Fall Prevention: activity supervised assistive device/personal items within reach clutter free environment maintained fall prevention program maintained lighting adjusted nonskid shoes/slippers when out of bed room organization consistent safety round/check completed Taken 04/06/20251999 by Hattie Morales RN Safety Promotion/Fall Prevention: activity supervised assistive device/personal items within reach clutter free environment maintained fall prevention program maintained lighting adjusted nonskid shoes/slippers when out of bed room organization consistent safety round/check completed Intervention: Prevent Skin Injury Recent Flowsheet Documentation Taken 04/07/2025 0400 by Hattie Morales RN Body Position: heels elevated turned left position changed independently Skin Protection: silicone border foam - sacrum/coccyx silicone border foam - heel incontinence pads utilized Taken 04/07/2025 0200 by Hattie Morales RN Body Position: turned right heels elevated Skin Protection: silicone border foam - sacrum/coccyx silicone border foam - heel incontinence pads utilized Taken 04/07/2025 0000 by Hattie Morales RN Body Position: position changed independently legs elevated Skin Protection: silicone border foam - sacrum/coccyx silicone border foam - heel incontinence pads utilized Taken 04/06/20252199 by Hattie Morales RN Body Position: position changed independently Skin Protection: silicone border foam - sacrum/coccyx silicone border foam - heel incontinence pads utilized Taken 04/06/20251999 by Hattie Morales RN Body Position: heels elevated position changed independently Skin Protection: silicone border foam - sacrum/coccyx silicone border foam - heel incontinence pads utilized Intervention: Prevent and Manage VTE (Venous Thromboembolism) Risk Recent Flowsheet Documentation Taken 04/06/20251999 by Hattie Morales RN VTE Prevention/Management: bilateral SCDs (sequential compression devices) off Intervention: Prevent Infection Recent Flowsheet Documentation Taken 04/07/2025 0400 by Hattie Morales RN Infection Prevention: environmental surveillance performed equipment surfaces disinfected hand hygiene promoted personal protective equipment utilized rest/sleep promoted single patient room provided Taken 04/07/2025 0200 by Hattie Morales RN Infection Prevention: environmental surveillance performed equipment surfaces disinfected hand hygiene promoted personal protective equipment utilized rest/sleep promoted single patient room provided Taken 04/07/2025 0000 by Hattie Morales RN Infection Prevention: environmental surveillance performed equipment surfaces disinfected hand hygiene promoted personal protective equipment utilized rest/sleep promoted single patient room provided Taken 04/06/2025 2200 by Hattie Morales RN Infection Prevention: environmental surveillance performed equipment surfaces disinfected hand hygiene promoted personal protective equipment utilized rest/sleep promoted single patient room provided Taken 04/06/20251999 by Hattie Morales RN Infection Prevention: environmental surveillance performed equipment surfaces disinfected hand hygiene promoted personal protective equipment utilized rest/sleep promoted single patient room provided Goal: Readiness for Transition of Care Outcome: Progressing Problem: Mechanical Ventilation Invasive Goal: Optimal Nutrition Delivery Outcome: Progressing Goal: Absence of Device-Related Skin and Tissue Injury Outcome: Progressing Problem: Skin Injury Risk Increased Goal: Skin Health and Integrity Outcome: Progressing Intervention: Optimize Skin Protection Recent Flowsheet Documentation Taken 04/07/2025 0400 by Hattie Morales RN Activity Management: activity encouraged Pressure Reduction Techniques: frequent weight shift encouraged weight shift assistance provided heels elevated off bed Head of Bed (HOB) Positioning: [facility] elevated Pressure Reduction Devices: pressure-redistributing mattress utilized foam padding utilized Skin Protection: silicone border foam - sacrum/coccyx silicone border foam - heel incontinence pads utilized Taken 04/07/2025 0200 by Hattie Morales RN Activity Management: activity encouraged Pressure Reduction Techniques: frequent weight shift encouraged weight shift assistance provided heels elevated off bed Head of Bed (HOB) Positioning: HOB elevated Pressure Reduction Devices: pressure-redistributing mattress utilized foam padding utilized Skin Protection: silicone border foam - sacrum/coccyx silicone border foam - heel incontinence pads utilized Taken 04/07/2025 0000 by Hattie Morales RN Activity Management: activity encouraged Pressure Reduction Techniques: frequent weight shift encouraged weight shift assistance provided heels elevated off bed Head of Bed (HOB) Positioning: HOB elevated Pressure Reduction Devices: pressure-redistributing mattress utilized foam padding utilized Skin Protection: silicone border foam - sacrum/coccyx silicone border foam - heel incontinence pads utilized Taken 04/06/20252199 by Hattie Morales RN Activity Management: activity encouraged Pressure Reduction Techniques: frequent weight shift encouraged weight shift assistance provided heels elevated off bed Head of Bed (HOB) Positioning: HOB elevated Pressure Reduction Devices: pressure-redistributing mattress utilized foam padding utilized Skin Protection: silicone border foam - sacrum/coccyx silicone border foam - heel incontinence pads utilized Taken 04/06/20251999 by Hattie Morales RN Activity Management: activity encouraged Pressure Reduction Techniques: frequent weight shift encouraged weight shift assistance provided heels elevated off bed Head of Bed (HOB) Positioning: [facility] elevated Pressure Reduction Devices: pressure-redistributing mattress utilized foam padding utilized Skin Protection: silicone border foam - sacrum/coccyx silicone border foam - heel incontinence pads utilized Problem: Comorbidity Management Goal: Maintenance of Seizure Control Outcome: Progressing Goal: Maintenance of Seizure Control Outcome: Progressing Problem: Violence Risk or Actual Goal: Anger and Impulse Control Outcome: Progressing Intervention: Minimize Safety Risk Recent Flowsheet Documentation Taken 04/07/2025 0400 by Hattie Morales RN Enhanced Safety Measures: bed alarm set Taken 04/07/2025 0200 by Hattie Morales RN Enhanced Safety Measures: bed alarm set Taken 04/07/2025 0000 by Hattie Morales RN Enhanced Safety Measures: bed alarm set Taken 04/06/2025 2200 by Hattie Morales RN Enhanced Safety Measures: bed alarm set Taken 04/06/20251999 by Hattie Morales RN Enhanced Safety Measures: bed alarm set Intervention: Promote Self-Control Recent Flowsheet Documentation Taken 04/06/20251999 by Hattie Morales RN Supportive Measures: active listening utilized Environmental Support: calm environment promoted Problem: Fall Injury Risk Goal: Absence of Fall and Fall-Related Injury Outcome: Progressing Intervention: Identify and Manage Contributors Recent Flowsheet Documentation Taken 04/07/2025 0400 by Hattie Morales RN Self-Care Promotion: independence encouraged BADL personal objects within reach Taken 04/07/2025 0200 by Hattie Morales RN Self-Care Promotion: independence encouraged BADL personal objects within reach Taken 04/07/2025 0000 by Hattie Morales RN Self-Care Promotion: independence encouraged BADL personal objects within reach Taken 04/06/2025 2200 by Hattie Morales RN Self-Care Promotion: independence encouraged BADL personal objects within reach Taken 04/06/2025 2000 by Hattie Morales RN Self-Care Promotion: independence encouraged BADL personal objects within reach Intervention: Promote Injury-Free Environment Recent Flowsheet Documentation Taken 04/07/2025 0400 by Hattie Morales RN Safety Promotion/Fall Prevention: activity supervised assistive device/personal items within reach clutter free environment maintained fall prevention program maintained lighting adjusted nonskid shoes/slippers when out of bed room organization consistent safety round/check completed Taken 04/07/2025 0200 by Hattie Morales RN Safety Promotion/Fall Prevention: activity supervised assistive device/personal items within reach clutter free environment maintained fall prevention program maintained lighting adjusted nonskid shoes/slippers when out of bed room organization consistent safety round/check completed Taken 04/07/2025 0000 by Hattie Morales RN Safety Promotion/Fall Prevention: activity supervised assistive device/personal items within reach clutter free environment maintained fall prevention program maintained lighting adjusted nonskid shoes/slippers when out of bed room organization consistent safety round/check completed Taken 04/06/2025 2200 by Hattie Morales RN Safety Promotion/Fall Prevention: activity supervised assistive device/personal items within reach clutter free environment maintained fall prevention program maintained lighting adjusted nonskid shoes/slippers when out of bed room organization consistent safety round/check completed Taken 04/06/20251999 by Hattie Morales RN Safety Promotion/Fall Prevention: activity supervised assistive device/personal items within reach clutter free environment maintained fall prevention program maintained lighting adjusted nonskid shoes/slippers when out of bed room organization consistent safety round/check completed Goal Outcome Evaluation: AOx2-3 throughout shift. NSR, RA. Plan of care continues, * Dial, [place], MS CCC-HYDRAULIC ENGINEER - 04/06/2025 12:02 PM EDT Problem: Adult Inpatient Plan of Care Goal: Plan of Care Review Outcome: Progressing Flowsheets (Taken 04/06/2025 1201) Plan of Care Reviewed With: patient Goal Outcome Evaluation: Plan of Care Reviewed With: patient HYDRAULIC ENGINEER treatment completed. Will address dysphagia with FEES tomorrow. Please see note for further details and recommendations. Treatment Assessment (HYDRAULIC ENGINEER): clinical signs of, aspiration (04/06/25 111) Treatment Assessment Comments (HYDRAULIC ENGINEER): Delayed coughs noted w/ nectar-thick liquid today. No s/sx aspiration w/ puree or honey-thick liquid. Recommend downgrade to honey liquids and repeat FEES tomorrow. (04/06/25 111) Plan for Continued Treatment (HYDRAULIC ENGINEER): continue treatment per plan of care (04/06/251114) Electronically signed by [place] Dial MS [facility]-HYDRAULIC ENGINEER at 04/06/2025 12:02 PM EDT * Hattie Morales RN - 04/06/2025 7:32 AM EDT Problem: Adult Inpatient Plan of Care Goal: Plan of Care Review Outcome: Progressing Goal: Patient-Specific Goal (Individualized) Outcome: Progressing Goal: Absence of Hospital-Acquired Illness or Injury Outcome: Progressing Intervention: Identify and Manage Fall Risk Recent Flowsheet Documentation Taken 04/06/2025 0600 by Hattie Morales RN Safety Promotion/Fall Prevention: activity supervised assistive device/personal items within reach clutter free environment maintained fall prevention program maintained lighting adjusted nonskid shoes/slippers when out of bed room organization consistent safety round/check completed Taken 04/06/2025 0400 by Hattie Morales RN Safety Promotion/Fall Prevention: activity supervised assistive device/personal items within reach clutter free environment maintained fall prevention program maintained lighting adjusted nonskid shoes/slippers when out of bed room organization consistent safety round/check completed Taken 04/06/2025 0200 by Hattie Morales RN Safety Promotion/Fall Prevention: activity supervised assistive device/personal items within reach clutter free environment maintained fall prevention program maintained lighting adjusted nonskid shoes/slippers when out of bed room organization consistent safety round/check completed Taken 04/06/2025 0000 by Hattie Morales RN Safety Promotion/Fall Prevention: activity supervised assistive device/personal items within reach clutter free environment maintained fall prevention program maintained lighting adjusted nonskid shoes/slippers when out of bed room organization consistent safety round/check completed Taken 04/05/2025 2200 by Hattie Morales RN Safety Promotion/Fall Prevention: activity supervised assistive device/personal items within reach clutter free environment maintained fall prevention program maintained lighting adjusted nonskid shoes/slippers when out of bed room organization consistent safety round/check completed Taken 04/05/20251999 by Hattie Morales RN Safety Promotion/Fall Prevention: activity supervised assistive device/personal items within reach clutter free environment maintained fall prevention program maintained lighting adjusted nonskid shoes/slippers when out of bed room organization consistent safety round/check completed Intervention: Prevent Skin Injury Recent Flowsheet Documentation Taken 04/06/2025 0600 by Hattie Morales RN Body Position: turned heels elevated supine Skin Protection: silicone border foam - sacrum/coccyx silicone border foam - heel incontinence pads utilized Taken 04/06/2025 0400 by Hattie Morales RN Body Position: turned right heels elevated Skin Protection: silicone border foam - sacrum/coccyx silicone border foam - heel incontinence pads utilized Taken 04/06/2025 0200 by Hattie Morales RN Body Position: turned left Skin Protection: silicone border foam - sacrum/coccyx silicone border foam - heel incontinence pads utilized Taken 04/06/2025 0000 by Hattie Morales RN Body Position: turned supine Skin Protection: silicone border foam - sacrum/coccyx silicone border foam - heel incontinence pads utilized Taken 04/05/2025 2200 by Hattie Morales RN Body Position: turned right heels elevated Skin Protection: silicone border foam - sacrum/coccyx silicone border foam - heel incontinence pads utilized Taken 04/05/20251999 by Hattie Morales RN Body Position: turned left heels elevated Skin Protection: silicone border foam - sacrum/coccyx silicone border foam - heel incontinence pads utilized Intervention: Prevent and Manage VTE (Venous Thromboembolism) Risk Recent Flowsheet Documentation Taken 04/05/20251999 by Hattie Morales RN VTE Prevention/Management: bilateral SCDs (sequential compression devices) off patient refused intervention Intervention: Prevent Infection Recent Flowsheet Documentation Taken 04/06/2025 0600 by Hattie Morales RN Infection Prevention: environmental surveillance performed equipment surfaces disinfected hand hygiene promoted personal protective equipment utilized rest/sleep promoted single patient room provided Taken 04/06/2025 0400 by Hattie Morales RN Infection Prevention: environmental surveillance performed equipment surfaces disinfected hand hygiene promoted personal protective equipment utilized rest/sleep promoted single patient room provided Taken 04/06/2025 0200 by Hattie Morales RN Infection Prevention: environmental surveillance performed equipment surfaces disinfected hand hygiene promoted personal protective equipment utilized rest/sleep promoted single patient room provided Taken 04/06/2025 0000 by Hattie Morales RN Infection Prevention: environmental surveillance performed equipment surfaces disinfected hand hygiene promoted personal protective equipment utilized rest/sleep promoted single patient room provided Taken 04/05/2025 2200 by Hattie Morales RN Infection Prevention: environmental surveillance performed equipment surfaces disinfected hand hygiene promoted personal protective equipment utilized rest/sleep promoted single patient room provided Taken 04/05/2025 2000 by Hattie Morales RN Infection Prevention: environmental surveillance performed equipment surfaces disinfected hand hygiene promoted personal protective equipment utilized rest/sleep promoted single patient room provided Goal: Readiness for Transition of Care Outcome: Progressing Problem: Mechanical Ventilation Invasive Goal: Optimal Nutrition Delivery Outcome: Progressing Goal: Absence of Device-Related Skin and Tissue Injury Outcome: Progressing Problem: Skin Injury Risk Increased Goal: Skin Health and Integrity Outcome: Progressing Intervention: Optimize Skin Protection Recent Flowsheet Documentation Taken 04/06/2025 0600 by Hattie Morales RN Activity Management: activity encouraged Pressure Reduction Techniques: frequent weight shift encouraged weight shift assistance provided heels elevated off bed Head of Bed (HOB) Positioning: HOB elevated Pressure Reduction Devices: pressure-redistributing mattress utilized foam padding utilized Skin Protection: silicone border foam - sacrum/coccyx silicone border foam - heel incontinence pads utilized Taken 04/06/2025 0400 by Hattie Morales RN Activity Management: activity encouraged Pressure Reduction Techniques: frequent weight shift encouraged weight shift assistance provided heels elevated off bed Head of Bed (HOB) Positioning: HOB elevated Pressure Reduction Devices: pressure-redistributing mattress utilized foam padding utilized Skin Protection: silicone border foam - sacrum/coccyx silicone border foam - heel incontinence pads utilized Taken 04/06/2025 0200 by Hattie Morales RN Activity Management: activity encouraged Pressure Reduction Techniques: frequent weight shift encouraged weight shift assistance provided heels elevated off bed Head of Bed (HOB) Positioning: HOB elevated Pressure Reduction Devices: pressure-redistributing mattress utilized foam padding utilized Skin Protection: silicone border foam - sacrum/coccyx silicone border foam - heel incontinence pads utilized Taken 04/06/2025 0000 by Hattie Morales RN Activity Management: activity encouraged Pressure Reduction Techniques: frequent weight shift encouraged weight shift assistance provided heels elevated off bed Head of Bed (HOB) Positioning: [facility] elevated Pressure Reduction Devices: pressure-redistributing mattress utilized foam padding utilized Skin Protection: silicone border foam - sacrum/coccyx silicone border foam - heel incontinence pads utilized Taken 04/05/2025 2200 by Hattie Morales RN Activity Management: activity encouraged Pressure Reduction Techniques: frequent weight shift encouraged weight shift assistance provided heels elevated off bed Head of Bed (HOB) Positioning: HOB elevated Pressure Reduction Devices: pressure-redistributing mattress utilized foam padding utilized Skin Protection: silicone border foam - sacrum/coccyx silicone border foam - heel incontinence pads utilized Taken 04/05/20251999 by Hattie Morales RN Activity Management: activity encouraged Pressure Reduction Techniques: frequent weight shift encouraged weight shift assistance provided heels elevated off bed Head of Bed (HOB) Positioning: [facility] elevated Pressure Reduction Devices: pressure-redistributing mattress utilized foam padding utilized Skin Protection: silicone border foam - sacrum/coccyx silicone border foam - heel incontinence pads utilized Problem: Comorbidity Management Goal: Maintenance of Seizure Control Outcome: Progressing Intervention: Maintain Seizure Symptom Control Recent Flowsheet Documentation Taken 04/05/20251999 by Hattie Morales RN Medication Review/Management: medications reviewed Goal: Maintenance of Seizure Control Outcome: Progressing Intervention: Maintain Seizure Symptom Control Recent Flowsheet Documentation Taken 04/05/20251999 by Hattie Morales RN Medication Review/Management: medications reviewed Problem: Violence Risk or Actual Goal: Anger and Impulse Control Outcome: Progressing Intervention: Minimize Safety Risk Recent Flowsheet Documentation Taken 04/06/2025 0600 by Hattie Morales RN Enhanced Safety Measures: bed alarm set Taken 04/06/2025 0400 by Hattie Morales RN Enhanced Safety Measures: bed alarm set Taken 04/06/2025 0200 by Hattie Morales RN Enhanced Safety Measures: bed alarm set Taken 04/06/2025 0000 by Hattie Morales RN Enhanced Safety Measures: bed alarm set Taken 04/05/2025 2200 by Hattie Morales RN Enhanced Safety Measures: bed alarm set Taken 04/05/20251999 by Hattie Morales RN Enhanced Safety Measures: bed alarm set Problem: Fall Injury Risk Goal: Absence of Fall and Fall-Related Injury Outcome: Progressing Intervention: Identify and Manage Contributors Recent Flowsheet Documentation Taken 04/06/2025 0600 by Hattie Morales RN Self-Care Promotion: independence encouraged BADL personal objects within reach Taken 04/06/2025 0400 by Hattie Morales RN Self-Care Promotion: independence encouraged BADL personal objects within reach Taken 04/06/2025 0200 by Hattie Morales RN Self-Care Promotion: independence encouraged BADL personal objects within reach Taken 04/06/2025 0000 by Hattie Morales RN Self-Care Promotion: independence encouraged BADL personal objects within reach Taken 04/05/2025 2200 by Hattie Morales RN Self-Care Promotion: independence encouraged BADL personal objects within reach Taken 04/05/20251999 by Hattie Morales RN Medication Review/Management: medications reviewed Self-Care Promotion: independence encouraged BADL personal objects within reach Intervention: Promote Injury-Free Environment Recent Flowsheet Documentation Taken 04/06/2025 0600 by Hattie Morales RN Safety Promotion/Fall Prevention: activity supervised assistive device/personal items within reach clutter free environment maintained fall prevention program maintained lighting adjusted nonskid shoes/slippers when out of bed room organization consistent safety round/check completed Taken 04/06/2025 0400 by Hattie Morales RN Safety Promotion/Fall Prevention: activity supervised assistive device/personal items within reach clutter free environment maintained fall prevention program maintained lighting adjusted nonskid shoes/slippers when out of bed room organization consistent safety round/check completed Taken 04/06/2025 0200 by Hattie Morales RN Safety Promotion/Fall Prevention: activity supervised assistive device/personal items within reach clutter free environment maintained fall prevention program maintained lighting adjusted nonskid shoes/slippers when out of bed room organization consistent safety round/check completed Taken 04/06/2025 0000 by Hattie Morales RN Safety Promotion/Fall Prevention: activity supervised assistive device/personal items within reach clutter free environment maintained fall prevention program maintained lighting adjusted nonskid shoes/slippers when out of bed room organization consistent safety round/check completed Taken 04/05/2025 2200 by Hattie Morales RN Safety Promotion/Fall Prevention: activity supervised assistive device/personal items within reach clutter free environment maintained fall prevention program maintained lighting adjusted nonskid shoes/slippers when out of bed room organization consistent safety round/check completed Taken 04/05/20251999 by Hattie Morales RN Safety Promotion/Fall Prevention: activity supervised assistive device/personal items within reach clutter free environment maintained fall prevention program maintained lighting adjusted nonskid shoes/slippers when out of bed room organization consistent safety round/check completed Goal Outcome Evaluation: * Susannah Ramos RN - 04/05/2025 2:21 PM EDT Problem: Skin Injury Risk Increased Goal: Skin Health and Integrity Outcome: Progressing Intervention: Optimize Skin Protection Recent Flowsheet Documentation Taken 04/05/2025 1400 by Susannah Ramos RN Activity Management: activity encouraged Head of Bed (HOB) Positioning: HOB elevated Taken 04/05/2025 1200 by Susannah Ramos RN Activity Management: activity encouraged Head of Bed (HOB) Positioning: HOB elevated Taken 04/05/2025 1000 by Susannah Ramos RN Activity Management: activity encouraged Head of Bed (HOB) Positioning: HOB elevated Taken 04/05/2025 0800 by Susannah Ramos RN Activity Management: activity encouraged Head of Bed (HOB) Positioning: HOB elevated Problem: Fall Injury Risk Goal: Absence of Fall and Fall-Related Injury Outcome: Progressing Intervention: Identify and Manage Contributors Recent Flowsheet Documentation Taken 04/05/2025 1400 by Susannah Ramos RN Medication Review/Management: medications reviewed Taken 04/05/2025 1200 by Susannah Ramos RN Medication Review/Management: medications reviewed Taken 04/05/2025 1000 by Susannah Ramos RN Medication Review/Management: medications reviewed Taken 04/05/2025 0800 by Susannah Ramos RN Medication Review/Management: medications reviewed Intervention: Promote Injury-Free Environment Recent Flowsheet Documentation Taken 04/05/2025 1400 by Susannah Ramos RN Safety Promotion/Fall Prevention: activity supervised Taken 04/05/2025 1200 by Susannah Ramos RN Safety Promotion/Fall Prevention: safety round/check completed Taken 04/05/2025 1000 by Susannah Ramos RN Safety Promotion/Fall Prevention: activity supervised Taken 04/05/2025 0800 by Susannah Ramos RN Safety Promotion/Fall Prevention: safety round/check completed Goal Outcome Evaluation: * To [facility] - 04/05/2025 10:44 AM EDT Goal Outcome Evaluation: Plan of Care Reviewed With: patient Progress: improving Outcome Evaluation: Pt alert, following all commands, and oriented to self only. Required less assist for transfer this date, remains grossly MaxA for self- care. Good effort with pre-mobility BUE/BLEAAROM warm-up. Will cont IPOT per POC as tolerated. Rec d/c to SNF. Anticipated Discharge Disposition (OT): [facility] facility * Hattie Morales RN - 04/05/2025 5:05 AM EDT Problem: Adult Inpatient Plan of Care Goal: Plan of Care Review Outcome: Progressing Goal: Patient-Specific Goal (Individualized) Outcome: Progressing Goal: Absence of Hospital-Acquired Illness or Injury Outcome: Progressing Intervention: Identify and Manage Fall Risk Recent Flowsheet Documentation Taken 04/05/2025 0400 by Hattie Morales RN Safety Promotion/Fall Prevention: activity supervised assistive device/personal items within reach clutter free environment maintained fall prevention program maintained lighting adjusted nonskid shoes/slippers when out of bed room organization consistent safety round/check completed Taken 04/05/2025 0200 by Hattie Morales RN Safety Promotion/Fall Prevention: activity supervised assistive device/personal items within reach clutter free environment maintained fall prevention program maintained lighting adjusted nonskid shoes/slippers when out of bed room organization consistent safety round/check completed Taken 04/05/2025 0000 by Hattie Morales RN Safety Promotion/Fall Prevention: activity supervised assistive device/personal items within reach clutter free environment maintained fall prevention program maintained lighting adjusted nonskid shoes/slippers when out of bed room organization consistent safety round/check completed Taken 04/04/20252199 by Hattie Morales RN Safety Promotion/Fall Prevention: activity supervised assistive device/personal items within reach clutter free environment maintained fall prevention program maintained lighting adjusted nonskid shoes/slippers when out of bed room organization consistent safety round/check completed Taken 04/04/20251999 by Hattie Morales RN Safety Promotion/Fall Prevention: activity supervised assistive device/personal items within reach clutter free environment maintained fall prevention program maintained lighting adjusted nonskid shoes/slippers when out of bed room organization consistent safety round/check completed Intervention: Prevent Skin Injury Recent Flowsheet Documentation Taken 04/05/2025 0400 by Hattie Morales RN Body Position: turned right heels elevated Skin Protection: silicone border foam - sacrum/coccyx silicone border foam - heel incontinence pads utilized Taken 04/05/2025 0200 by Hattie Morales RN Body Position: turned left heels elevated Skin Protection: silicone border foam - sacrum/coccyx silicone border foam - heel incontinence pads utilized Taken 04/05/2025 0000 by Hattie Morales RN Body Position: turned supine heels elevated Skin Protection: silicone border foam - sacrum/coccyx silicone border foam - heel incontinence pads utilized Taken 04/04/20252199 by Hattie Morales RN Body Position: turned right heels elevated Skin Protection: silicone border foam - sacrum/coccyx silicone border foam - heel incontinence pads utilized Taken 04/04/20251999 by Hattie Morales RN Body Position: turned left heels elevated Skin Protection: silicone border foam - sacrum/coccyx silicone border foam - heel incontinence pads utilized Intervention: Prevent and Manage VTE (Venous Thromboembolism) Risk Recent Flowsheet Documentation Taken 04/04/20251999 by Hattie Morales RN VTE Prevention/Management: bilateral SCDs (sequential compression devices) off patient refused intervention Intervention: Prevent Infection Recent Flowsheet Documentation Taken 04/05/2025 0400 by Hattie Morales RN Infection Prevention: environmental surveillance performed equipment surfaces disinfected hand hygiene promoted personal protective equipment utilized rest/sleep promoted single patient room provided Taken 04/05/2025 0200 by Hattie Morales RN Infection Prevention: environmental surveillance performed equipment surfaces disinfected hand hygiene promoted personal protective equipment utilized rest/sleep promoted single patient room provided Taken 04/05/2025 0000 by Hattie Morales RN Infection Prevention: environmental surveillance performed equipment surfaces disinfected hand hygiene promoted personal protective equipment utilized rest/sleep promoted single patient room provided Taken 04/04/2025 2200 by Hattie Morales RN Infection Prevention: environmental surveillance performed equipment surfaces disinfected hand hygiene promoted personal protective equipment utilized rest/sleep promoted single patient room provided Taken 04/04/20251999 by Hattie Morales RN Infection Prevention: environmental surveillance performed equipment surfaces disinfected hand hygiene promoted personal protective equipment utilized rest/sleep promoted single patient room provided Goal: Readiness for Transition of Care Outcome: Progressing Problem: Mechanical Ventilation Invasive Goal: Optimal Nutrition Delivery Outcome: Progressing Goal: Absence of Device-Related Skin and Tissue Injury Outcome: Progressing Problem: Skin Injury Risk Increased Goal: Skin Health and Integrity Outcome: Progressing Intervention: Optimize Skin Protection Recent Flowsheet Documentation Taken 04/05/2025 0400 by Hattie Morales RN Activity Management: activity encouraged Pressure Reduction Techniques: frequent weight shift encouraged weight shift assistance provided heels elevated off bed Head of Bed (HOB) Positioning: HOB elevated Pressure Reduction Devices: pressure-redistributing mattress utilized foam padding utilized Skin Protection: silicone border foam - sacrum/coccyx silicone border foam - heel incontinence pads utilized Taken 04/05/2025 0200 by Hattie Morales RN Activity Management: activity encouraged Pressure Reduction Techniques: frequent weight shift encouraged weight shift assistance provided heels elevated off bed Head of Bed (HOB) Positioning: HOB elevated Pressure Reduction Devices: pressure-redistributing mattress utilized foam padding utilized Skin Protection: silicone border foam - sacrum/coccyx silicone border foam - heel incontinence pads utilized Taken 04/05/2025 0000 by Hattie Morales RN Activity Management: activity encouraged Pressure Reduction Techniques: frequent weight shift encouraged weight shift assistance provided heels elevated off bed Head of Bed (HOB) Positioning: HOB elevated Pressure Reduction Devices: pressure-redistributing mattress utilized foam padding utilized Skin Protection: silicone border foam - sacrum/coccyx silicone border foam - heel incontinence pads utilized Taken 04/04/2025 220 by Hattie Morales RN Activity Management: activity encouraged Pressure Reduction Techniques: frequent weight shift encouraged weight shift assistance provided heels elevated off bed Head of Bed (HOB) Positioning: HOB elevated Pressure Reduction Devices: pressure-redistributing mattress utilized foam padding utilized Skin Protection: silicone border foam - sacrum/coccyx silicone border foam - heel incontinence pads utilized Taken 04/04/20251999 by Hattie Morales RN Activity Management: activity encouraged Pressure Reduction Techniques: frequent weight shift encouraged weight shift assistance provided heels elevated off bed Head of Bed (HOB) Positioning: [facility] elevated Pressure Reduction Devices: pressure-redistributing mattress utilized foam padding utilized Skin Protection: silicone border foam - sacrum/coccyx silicone border foam - heel incontinence pads utilized Problem: Comorbidity Management Goal: Maintenance of Seizure Control Outcome: Progressing Intervention: Maintain Seizure Symptom Control Recent Flowsheet Documentation Taken 04/04/20251999 by Hattie Morales RN Medication Review/Management: medications reviewed Goal: Maintenance of Seizure Control Outcome: Progressing Intervention: Maintain Seizure Symptom Control Recent Flowsheet Documentation Taken 04/04/20251999 by Hattie Morales RN Medication Review/Management: medications reviewed Problem: Violence Risk or Actual Goal: Anger and Impulse Control Outcome: Progressing Intervention: Minimize Safety Risk Recent Flowsheet Documentation Taken 04/05/2025 0400 by Hattie Morales RN Enhanced Safety Measures: bed alarm set Taken 04/05/2025 0200 by Hattie Morales RN Enhanced Safety Measures: bed alarm set Taken 04/05/2025 0000 by Hattie Morlaes RN Enhanced Safety Measures: bed alarm set Taken 04/04/2025 2200 by Hattie Morales RN Enhanced Safety Measures: bed alarm set Taken 04/04/20251999 by Hattie Morales RN Enhanced Safety Measures: bed alarm set Intervention: Promote Self-Control Recent Flowsheet Documentation Taken 04/04/20251999 by Hattie Morales RN Supportive Measures: active listening utilized self-care encouraged Environmental Support: calm environment promoted Problem: Fall Injury Risk Goal: Absence of Fall and Fall-Related Injury Outcome: Progressing Intervention: Identify and Manage Contributors Recent Flowsheet Documentation Taken 04/05/2025 0400 by Hattie Morales RN Self-Care Promotion: independence encouraged BADL personal objects within reach Taken 04/05/2025 0200 by Hattie Morales RN Self-Care Promotion: independence encouraged BADL personal objects within reach Taken 04/05/2025 0000 by Hattie Morales RN Self-Care Promotion: independence encouraged BADL personal objects within reach Taken 04/04/2025 2200 by Hattie Morales RN Self-Care Promotion: independence encouraged BADL personal objects within reach Taken 04/04/20251999 by Hattie Morales RN Medication Review/Management: medications reviewed Self-Care Promotion: independence encouraged BADL personal objects within reach Intervention: Promote Injury-Free Environment Recent Flowsheet Documentation Taken 04/05/2025 0400 by Hattie Morales RN Safety Promotion/Fall Prevention: activity supervised assistive device/personal items within reach clutter free environment maintained fall prevention program maintained lighting adjusted nonskid shoes/slippers when out of bed room organization consistent safety round/check completed Taken 04/05/2025 0200 by Hattie Morales RN Safety Promotion/Fall Prevention: activity supervised assistive device/personal items within reach clutter free environment maintained fall prevention program maintained lighting adjusted nonskid shoes/slippers when out of bed room organization consistent safety round/check completed Taken 04/05/2025 0000 by Hattie Morales RN Safety Promotion/Fall Prevention: activity supervised assistive device/personal items within reach clutter free environment maintained fall prevention program maintained lighting adjusted nonskid shoes/slippers when out of bed room organization consistent safety round/check completed Taken 04/04/2025 220 by Hattie Morales RN Safety Promotion/Fall Prevention: activity supervised assistive device/personal items within reach clutter free environment maintained fall prevention program maintained lighting adjusted nonskid shoes/slippers when out of bed room organization consistent safety round/check completed Taken 04/04/20251999 by Hattie Morales RN Safety Promotion/Fall Prevention: activity supervised assistive device/personal items within reach clutter free environment maintained fall prevention program maintained lighting adjusted nonskid shoes/slippers when out of bed room organization consistent safety round/check completed Goal Outcome Evaluation: AOx3 disoriented to situation. RA, NSR/Sinus tach. Plan of care ongoing. * Susannah Aly RN - 04/04/2025 6:45 PM EDT Problem: Adult Inpatient Plan of Care Goal: Plan of Care Review Outcome: Progressing Flowsheets (Taken 04/04/2025 1845) Outcome Evaluation: VSS. No observed or suspected seizures. More alert, talkative at times, still sleeps frequently. NSR on tele. Now on room air w/ SpO2=WDL. Large incontinent loose stool today. Good uop via gonsalez cath. Blood glucose =WDL. Plan discharge to SNF for rehab when medically ready. Plan of Care Reviewed With: patient Goal: Patient-Specific Goal (Individualized) Outcome: Progressing Goal: Absence of Hospital-Acquired Illness or Injury Outcome: Progressing Intervention: Identify and Manage Fall Risk Description: Perform standard risk assessment on admission using a validated tool or comprehensive approach appropriate to the patient; reassess fall risk frequently, with change in status or transfer to another level of care. Communicate risk to interprofessional healthcare team; ensure fall risk visible cue. Determine need for increased observation, equipment and environmental modification, as well as use of supportive, nonskid footwear. Adjust safety measures to individual needs and identified risk factors. Reinforce the importance of active participation with fall risk prevention, safety, and physical activity with the patient and family. Perform regular intentional rounding to assess need for position change, pain assessment and personal needs, including assistance with toileting. Recent Flowsheet Documentation Taken 04/04/2025 1800 by Susannah Aly RN Safety Promotion/Fall Prevention: safety round/check completed room organization consistent fall prevention program maintained clutter free environment maintained assistive device/personal items within reach Taken 04/04/2025 1600 by Susannah Aly RN Safety Promotion/Fall Prevention: safety round/check completed room organization consistent fall prevention program maintained clutter free environment maintained assistive device/personal items within reach Taken 04/04/2025 1404 by Susannah Aly RN Safety Promotion/Fall Prevention: safety round/check completed room organization consistent fall prevention program maintained clutter free environment maintained assistive device/personal items within reach Taken 04/04/2025 1200 by Susannah Aly RN Safety Promotion/Fall Prevention: safety round/check completed room organization consistent fall prevention program maintained clutter free environment maintained assistive device/personal items within reach Taken 04/04/2025 1000 by Susannah Aly RN Safety Promotion/Fall Prevention: safety round/check completed room organization consistent fall prevention program maintained clutter free environment maintained assistive device/personal items within reach Taken 04/04/2025 0811 by Susannah Aly RN Safety Promotion/Fall Prevention: safety round/check completed room organization consistent fall prevention program maintained clutter free environment maintained assistive device/personal items within reach Intervention: Prevent Skin Injury Description: Perform a screening for skin injury risk, such as pressure or moisture-associated skindamage on admission and at regular intervals throughout hospital stay. Keep all areas of skin (especially folds) clean and dry. Maintain adequate skin hydration. Relieve and redistribute pressure and protect bony prominences and skin at risk for injury; implement measures based on patient-specific risk factors. Match turning and repositioning schedule to clinical condition. Encourage weight shift frequently; assist with reposition if unable to complete independently. Float heels off bed; avoid pressure on the Achilles tendon. Keep skin free from extended contact with medical devices. Optimize nutrition and hydration. Encourage functional activity and mobility, as early as tolerated. Use aids (e.g., slide boards, mechanical lift) during transfer. Recent Flowsheet Documentation Taken 04/04/2025 1800 by Susannah Aly RN Body Position: supine Taken 04/04/2025 1700 by Susannah Aly RN Skin Protection: silicone border foam - sacrum/coccyx silicone border foam - heel skin sealant/moisture barrier applied incontinence pads utilized pectin skin barriers applied Taken 04/04/2025 1600 by Susannah Aly RN Body Position: tilted right Taken 04/04/2025 1200 by Susannah Aly RN Body Position: supine Skin Protection: skin sealant/moisture barrier applied silicone border foam - sacrum/coccyx silicone border foam - heel protective footwear used pectin skin barriers applied incontinence pads utilized Taken 04/04/2025 1000 by Susannah Aly RN Body Position: tilted right Taken 04/04/2025 0811 by Susannah Aly RN Body Position: tilted left Skin Protection: skin sealant/moisture barrier applied silicone border foam - sacrum/coccyx silicone border foam - heel pulse oximeter probe site changed protective footwear used incontinence pads utilized Intervention: Prevent Infection Description: Maintain skin and mucous membrane integrity; promote hand, oral and pulmonary hygiene. Optimize fluid balance, nutrition, sleep and glycemic control to maximize infection resistance. Identify potential sources of infection early to prevent or mitigate progression of infection (e.g., wound, lines, devices). Evaluate ongoing need for invasive devices; remove promptly when no longer indicated. Review vaccination status. Recent Flowsheet Documentation Taken 04/04/2025 1800 by Susannah Aly RN Infection Prevention: environmental surveillance performed hand hygiene promoted personal protective equipment utilized Taken 04/04/2025 1600 by Susannah Aly RN Infection Prevention: environmental surveillance performed hand hygiene promoted personal protective equipment utilized Taken 04/04/2025 0811 by Susannah Aly RN Infection Prevention: environmental surveillance performed hand hygiene promoted personal protective equipment utilized single patient room provided Goal: Readiness for Transition of Care Outcome: Progressing Problem: Mechanical Ventilation Invasive Goal: Optimal Nutrition Delivery Outcome: Progressing Goal: Absence of Device-Related Skin and Tissue Injury Outcome: Progressing Intervention: Maintain Skin and Tissue Health Description: Reposition and resecure endotracheal tube regularly; ensure proper tube location. Monitor depth of suction catheter advancement to minimize the risk of internal tracheobronchial tissue injury. Assess skin and mucosal areas around the device frequently. Monitor tightness of securement device regularly; consider skin barrier protection. Minimize pressure points and prevent traction on device, using careful positioning, flexible extenders and props. Assess and monitor for the presence of bleeding that may indicate injury to tracheobronchial tissue. Notify provider for persistent bleeding. Anticipate adjunct therapy, such as cool mist, racemic epinephrine, corticosteroid or heliox, for symptoms related to airway swelling or stridor after removal of tube. Recent Flowsheet Documentation Taken 04/04/2025 1700 by Susannah Aly RN Device Skin Pressure Protection: tubing/devices free from skin contact [id number] areas padded [id number]-[id number] areas padded pressure points protected positioning supports utilized adhesive use limited Taken 04/04/2025 1200 by Susannah Aly RN Device Skin Pressure Protection: tubing/devices free from skin contact jvra-vi-[id number] areas padded kajv-hk-dyymhl areas padded pressure points protected positioning supports utilized adhesive use limited absorbent pad utilized/changed Taken 04/04/2025 0811 by Susannah Aly RN Device Skin Pressure Protection: tubing/devices free from skin contact rupo-lm-[id number] areas padded byeu-ep-bsamst areas padded pressure points protected positioning supports utilized adhesive use limited absorbent pad utilized/changed Problem: Skin Injury Risk Increased Goal: Skin Health and Integrity Outcome: Progressing Intervention: Optimize Skin Protection Description: Perform a full pressure injury risk assessment, as indicated by screening, upon admission to care unit. Reassess skin (full inspection and injury risk, including skin temperature, consistency and color) frequently (e.g., scheduled interval, with change in condition) to provide optimal early detection and prevention. Maintain adequate tissue perfusion (e.g., encourage fluid balance; avoid crossing legs, constrictive clothing or devices) to promote tissue oxygenation. Maintain head of bed at lowest degree of elevation tolerated, considering medical condition and other restrictions. Use positioning supports to prevent sliding and friction. Consider low friction textiles. Avoid positioning onto an area that remains reddened or on bony prominences. Minimize incontinence and moisture (e.g., toileting schedule; moisture-wicking pad, diaper or incontinence collection device; skin moisture barrier). Cleanse skin promptly and gently, when soiled, utilizing a pH-balanced cleanser. Relieve and redistribute pressure (e.g., scheduled position changes, weight shifts, use of support surface, senior medical billing specialist repositioning, protective dressing application, use of positioning device, microclimate control, use of [id number] Encourage increased activity, such as sitting in a chair at the bedside or early mobilization, whenable to tolerate. Avoid prolonged sitting. Recent Flowsheet Documentation Taken 04/04/2025 1800 by Susannah Aly RN Head of Bed ([facility]) Positioning: HOB at 30-45 degrees Taken 04/04/2025 1700 by Susannah Aly RN Pressure Reduction Techniques: heels elevated off bed pressure points protected rest period provided between sit times sit time limited to 2 hours weight shift assistance provided Pressure Reduction Devices: pressure-redistributing mattress utilized positioning supports utilized heel offloading device utilized foam padding utilized Skin Protection: silicone border foam - sacrum/coccyx silicone border foam - heel skin sealant/moisture barrier applied incontinence pads utilized pectin skin barriers applied Taken 04/04/2025 1600 by Susannah Aly RN Head of Bed ([facility]) Positioning: HOB at 30 degrees Taken 04/04/2025 1404 by Susannah Aly RN Head of Bed ([facility]) Positioning: HOB elevated Taken 04/04/2025 1200 by Susannah Aly RN Pressure Reduction Techniques: weight shift assistance provided rest period provided between sit times sit time limited to 2 hours pressure points protected heels elevated off bed Head of Bed ([facility]) Positioning: HOB elevated Pressure Reduction Devices: pressure-redistributing mattress utilized positioning supports utilized heel offloading device utilized foam padding utilized Skin Protection: skin sealant/moisture barrier applied silicone border foam - sacrum/coccyx silicone border foam - heel protective footwear used pectin skin barriers applied incontinence pads utilized Taken 04/04/2025 1000 by Susannah Aly RN Head of Bed ([facility]) Positioning: HOB elevated Taken 04/04/2025 0811 by Susannah Aly RN Pressure Reduction Techniques: heels elevated off bed pressure points protected rest period provided between sit times sit time limited to 2 hours weight shift assistance provided Head of Bed ([facility]) Positioning: HOB elevated Pressure Reduction Devices: pressure-redistributing mattress utilized positioning supports utilized heel offloading device utilized foam padding utilized Skin Protection: skin sealant/moisture barrier applied silicone border foam - sacrum/coccyx silicone border foam - heel pulse oximeter probe site changed protective footwear used incontinence pads utilized Problem: Comorbidity Management Goal: Maintenance of Seizure Control Outcome: Progressing Intervention: Maintain Seizure Symptom Control Description: Identify risks that may lower seizure threshold (e.g., hypoglycemia, illness, change in medications); assist in treatment. Evaluate adherence to management plan (e.g., medication, symptom control, trigger avoidance, self-monitoring). Advocate for continuation of home regimen, including medication, medication administration schedule, ketogenic diet, sleep schedule and symptom monitoring; acknowledge home management and routine. Minimize potential seizure triggers, such as stress, sleep deprivation and diet. Evaluate effectiveness of coping skills; encourage expression of feelings, expectations and concerns related to disease management and quality of life; reinforce education to enhance management plan and wellbeing. Maintain seizure precautions, such as removal of potential harmful objects, padded side rails, bed in low position, suction and airway protection equipment readily available. Provide a quiet, calm environment. Recent Flowsheet Documentation Taken 04/04/2025810 by Susannah Aly RN Medication Review/Management: medications reviewed high-risk medications identified Seizure Precautions: side rails padded soft boundaries provided emergency equipment at bedside clutter-free environment maintained Goal: Maintenance of Seizure Control Outcome: Progressing Intervention: Maintain Seizure Symptom Control Description: Identify risks that may lower seizure threshold (e.g., hypoglycemia, illness, change in medications); assist in treatment. Evaluate adherence to management plan (e.g., medication, symptom control, trigger avoidance, self-monitoring). Advocate for continuation of home regimen, including medication, medication administration schedule, ketogenic diet, sleep schedule and symptom monitoring; acknowledge home management and routine. Minimize potential seizure triggers, such as stress, sleep deprivation and diet. Evaluate effectiveness of coping skills; encourage expression of feelings, expectations and concerns related to disease management and quality of life; reinforce education to enhance management plan and wellbeing. Maintain seizure precautions, such as removal of potential harmful objects, padded side rails, bed in low position, suction and airway protection equipment readily available. Provide a quiet, calm environment. Recent Flowsheet Documentation Taken 04/04/2025810 by Susannah Aly RN Medication Review/Management: medications reviewed high-risk medications identified Seizure Precautions: side rails padded soft boundaries provided emergency equipment at bedside clutter-free environment maintained Problem: Violence Risk or Actual Goal: Anger and Impulse Control Outcome: Progressing Intervention: Minimize Safety Risk Description: Listen actively, observing verbal and nonverbal cues (e.g., irritability, confusion, lack of cooperation, demanding behavior, body posture, expression); take threats seriously. Maintain a therapeutic presence; utilize calm, empathetic tone of voice, nonjudgmental attitude andnonthreatening body language; listen carefully. Assess and provide for unmet needs, including nutrition, comfort, hydration, hygiene, companionshipand appropriate rest. Utilize empathetic but firm and concise communication; set limits, offer choices and propose alternatives. Remove stimuli and objects that may lead to harming self or others. Maintain clear path to room exit; keep door open during care. Ask directly about homicidal and suicidal intent; provide additional safety measures based on levelof risk (e.g., one-on-one observation, duty to warn). Implement least restrictive measures if attempts to de-escalate violent or injurious behaviors are unsuccessful. Recent Flowsheet Documentation Taken 04/04/2025 1800 by Susannah Aly RN Enhanced Safety Measures: bed alarm set Taken 04/04/2025 1600 by Susannah Aly RN Enhanced Safety Measures: bed alarm set Taken 04/04/2025 1404 by Susannah Aly RN Enhanced Safety Measures: bed alarm set Taken 04/04/2025 1200 by Susannah Aly RN Enhanced Safety Measures: bed alarm set Taken 04/04/2025 1000 by Susannah Aly RN Enhanced Safety Measures: bed alarm set Taken 04/04/2025 0811 by Susannah Aly RN Enhanced Safety Measures: bed alarm set Intervention: Promote Self-Control Description: Explore perception of the situation; acknowledge feelings; provide information and reassurance. Maintain a calm and reassuring environment; minimize noise; respect personal space. Identify and reduce causes of stress, triggers or precipitating factors of unsafe behavior. Involve support system and family members, if helpful. Advocate for maintaining previously established self-management plan, including medication regimen for the treatment of an underlying disorder. Discuss and implement methods to recognize and manage emotions (e.g., verbalization, calming techniques, physical activity). Assess and monitor for signs and symptoms of behavioral health concerns (e.g., substance use, psychosis). Establish or reconnect linkage with social supports and community-based services. Recent Flowsheet Documentation Taken 04/04/2025 0811 by Susannah Aly RN Environmental Support: calm environment promoted environmental consistency promoted Problem: Fall Injury Risk Goal: Absence of Fall and Fall-Related Injury Outcome: Progressing Intervention: Identify and Manage Contributors Description: Develop a fall prevention plan, considering patient-centered interventions and family/caregiver involvement; identify and address patient's facilitators and barriers. Provide reorientation, appropriate sensory stimulation and routines with changes in mental status to decrease risk of fall. Promote use of personal vision and auditory aids. Assess assistance level required for safe and effective self-care; provide support as needed, such as toileting and mobilization. For age 65 and older, implement timed toileting with assistance. Encourage physical activity, such as performance of mobility and self-care at highest level of patient ability, multicomponent exercise program and provision of appropriate assistive devices. If fall occurs, assess the severity of injury; implement fall injury protocol. Determine the cause and revise fall injury prevention plan. Regularly review and advocate for medication adjustment to decrease fall risk; consider administration times, polypharmacy and age. Balance adequate pain management with potential for oversedation. Recent Flowsheet Documentation Taken 04/04/2025 0811 by Susannah Aly RN Medication Review/Management: medications reviewed high-risk medications identified Self-Care Promotion: BADL personal objects within reach Intervention: Promote Injury-Free Environment Description: Provide a safe, barrier-free environment that encourages independent activity. Keep care area uncluttered and well-lighted. Determine need for increased observation or monitoring. Avoid use of devices that minimize mobility, such as restraints or indwelling urinary catheter. Recent Flowsheet Documentation Taken 04/04/2025 1800 by Susannah Aly RN Safety Promotion/Fall Prevention: safety round/check completed room organization consistent fall prevention program maintained clutter free environment maintained assistive device/personal items within reach Taken 04/04/2025 1600 by Susannah Aly RN Safety Promotion/Fall Prevention: safety round/check completed room organization consistent fall prevention program maintained clutter free environment maintained assistive device/personal items within reach Taken 04/04/2025 1404 by Susannah Aly RN Safety Promotion/Fall Prevention: safety round/check completed room organization consistent fall prevention program maintained clutter free environment maintained assistive device/personal items within reach Taken 04/04/2025 1200 by Susannah Aly RN Safety Promotion/Fall Prevention: safety round/check completed room organization consistent fall prevention program maintained clutter free environment maintained assistive device/personal items within reach Taken 04/04/2025 1000 by Susannah Aly RN Safety Promotion/Fall Prevention: safety round/check completed room organization consistent fall prevention program maintained clutter free environment maintained assistive device/personal items within reach Taken 04/04/2025 0811 by Susannah Aly RN Safety Promotion/Fall Prevention: safety round/check completed room organization consistent fall prevention program maintained clutter free environment maintained assistive device/personal items within reach Goal Outcome Evaluation: Plan of Care Reviewed With: patient Outcome Evaluation: VSS. No observed or suspected seizures. More alert, talkative at times, still sleeps frequently. NSR on tele. Now on room air w/ SpO2=WDL. Large incontinent loose stool today. Good uop via gonsalez cath. Blood glucose =WDL. Plan discharge to SNF for rehab when medically ready. * Sofia Encarnacion RN - 04/04/2025 5:47 AM EDT Problem: Adult Inpatient Plan of Care Goal: Plan of Care Review Outcome: Progressing Goal: Patient-Specific Goal (Individualized) Outcome: Progressing Goal: Absence of Hospital-Acquired Illness or Injury Outcome: Progressing Intervention: Identify and Manage Fall Risk Recent Flowsheet Documentation Taken 04/04/2025 0400 by Sofia Encarnacion RN Safety Promotion/Fall Prevention: activity supervised assistive device/personal items within reach clutter free environment maintained fall prevention program maintained lighting adjusted nonskid shoes/slippers when out of bed room organization consistent safety round/check completed Taken 04/04/2025 0200 by Sofia Encarnacion RN Safety Promotion/Fall Prevention: activity supervised assistive device/personal items within reach clutter free environment maintained fall prevention program maintained lighting adjusted nonskid shoes/slippers when out of bed room organization consistent safety round/check completed Taken 04/04/2025 0000 by Sofia Encarnacion RN Safety Promotion/Fall Prevention: activity supervised assistive device/personal items within reach clutter free environment maintained fall prevention program maintained lighting adjusted nonskid shoes/slippers when out of bed room organization consistent safety round/check completed Taken 04/03/20252199 by Sofia Encarnacion RN Safety Promotion/Fall Prevention: activity supervised assistive device/personal items within reach clutter free environment maintained fall prevention program maintained lighting adjusted nonskid shoes/slippers when out of bed room organization consistent safety round/check completed Taken 04/03/20251999 by Sofia Encarnacion RN Safety Promotion/Fall Prevention: activity supervised assistive device/personal items within reach clutter free environment maintained fall prevention program maintained lighting adjusted nonskid shoes/slippers when out of bed room organization consistent safety round/check completed Intervention: Prevent Skin Injury Recent Flowsheet Documentation Taken 04/04/2025 0400 by Sofia Encarnacion RN Body Position: side-lying right Skin Protection: incontinence pads utilized silicone border foam - heel silicone border foam - sacrum/coccyx Taken 04/04/2025 0200 by Sofia Encarnacion RN Body Position: side-lying left Skin Protection: incontinence pads utilized silicone border foam - heel silicone border foam - sacrum/coccyx Taken 04/04/2025 by Sofia Encarnacion RN Body Position: supine legs elevated Skin Protection: incontinence pads utilized silicone border foam - heel silicone border foam - sacrum/coccyx Taken 04/03/20252199 by Sofia Encarnacion RN Body Position: side-lying right Skin Protection: incontinence pads utilized silicone border foam - heel silicone border foam - sacrum/coccyx Taken 04/03/20251999 by Sofia Encarnacion RN Body Position: side-lying left Skin Protection: incontinence pads utilized silicone border foam - heel silicone border foam - sacrum/coccyx Intervention: Prevent and Manage VTE (Venous Thromboembolism) Risk Recent Flowsheet Documentation Taken 04/03/20251999 by Sofia Encarnacion RN VTE Prevention/Management: bilateral SCDs (sequential compression devices) off Intervention: Prevent Infection Recent Flowsheet Documentation Taken 04/04/2025 0400 by Sofia Encarnacion RN Infection Prevention: environmental surveillance performed equipment surfaces disinfected hand hygiene promoted personal protective equipment utilized rest/sleep promoted Taken 04/04/2025 0200 by Sofia Encarnacion RN Infection Prevention: environmental surveillance performed equipment surfaces disinfected hand hygiene promoted personal protective equipment utilized rest/sleep promoted Taken 04/04/2025 0000 by Sofia Encarnacion RN Infection Prevention: environmental surveillance performed equipment surfaces disinfected hand hygiene promoted personal protective equipment utilized rest/sleep promoted Taken 04/03/2025 2200 by Sofia Encarnacion RN Infection Prevention: environmental surveillance performed equipment surfaces disinfected hand hygiene promoted personal protective equipment utilized rest/sleep promoted Taken 04/03/2025 2000 by Sofia Encarnacion RN Infection Prevention: environmental surveillance performed equipment surfaces disinfected hand hygiene promoted personal protective equipment utilized rest/sleep promoted Goal: Readiness for Transition of Care Outcome: Progressing Problem: Restraint, Nonviolent Goal: Absence of Harm or Injury Outcome: Progressing Intervention: Implement Least Restrictive Safety Strategies Recent Flowsheet Documentation Taken 04/04/2025 0400 by Sofia Encarnacion RN Lumber Marker Protection: tubing secured Taken 04/04/2025 0200 by Sofia Encarnacion RN Lumber Marker Protection: tubing secured Taken 04/04/2025 0000 by Sofia Encarnacion RN Lumber Marker Protection: tubing secured Taken 04/03/2025 2200 by Sofia Encarnacion RN Lumber Marker Protection: tubing secured Taken 04/03/20251999 by Sofia Encarnacion RN Lumber Marker Protection: tubing secured Diversional Activities: television Intervention: Protect Dignity, Rights and Personal Wellbeing Recent Flowsheet Documentation Taken 04/03/20251999 by Sofia Encarnacion RN Trust Relationship/Rapport: care explained Intervention: Protect Skin and Joint Integrity Recent Flowsheet Documentation Taken 04/04/2025 0400 by Sofia Encarnacion RN Body Position: side-lying right Skin Protection: incontinence pads utilized silicone border foam - heel silicone border foam - sacrum/coccyx Taken 04/04/2025 0200 by Sofia Encarnacion RN Body Position: side-lying left Skin Protection: incontinence pads utilized silicone border foam - heel silicone border foam - sacrum/coccyx Taken 04/04/2025 0000 by Sofia Encarnacion RN Body Position: supine legs elevated Skin Protection: incontinence pads utilized silicone border foam - heel silicone border foam - sacrum/coccyx Taken 04/03/2025 2200 by Sofia Encarnacion RN Body Position: side-lying right Skin Protection: incontinence pads utilized silicone border foam - heel silicone border foam - sacrum/coccyx Taken 04/03/20251999 by Sofia Encarnacion RN Body Position: side-lying left Skin Protection: incontinence pads utilized silicone border foam - heel silicone border foam - sacrum/coccyx Problem: Mechanical Ventilation Invasive Goal: Effective Communication Outcome: Progressing Intervention: Ensure Effective Communication Recent Flowsheet Documentation Taken 04/03/20251999 by Sofia Encarnacion RN Trust Relationship/Rapport: care explained Diversional Activities: television Family/Support System Care: support provided Goal: Optimal Device Function Outcome: Progressing Intervention: Optimize Device Care and Function Recent Flowsheet Documentation Taken 04/04/2025 0400 by Sofia Encarnacion RN Airway Safety Measures: oxygen flowmeter at bedside suction at bedside Taken 04/04/2025 0200 by Sofia Encarnacion RN Airway Safety Measures: oxygen flowmeter at bedside suction at bedside Taken 04/04/2025 0000 by Sofia Encarnacion RN Airway Safety Measures: oxygen flowmeter at bedside suction at bedside Taken 04/03/2025 2200 by Sofia Encarnacion RN Airway Safety Measures: oxygen flowmeter at bedside suction at bedside Taken 04/03/20251999 by Sofia Encarnacion RN Airway Safety Measures: oxygen flowmeter at bedside Goal: Mechanical Ventilation Liberation Outcome: Progressing Goal: Optimal Nutrition Delivery Outcome: Progressing Goal: Absence of Device-Related Skin and Tissue Injury Outcome: Progressing Intervention: Maintain Skin and Tissue Health Recent Flowsheet Documentation Taken 04/04/2025 0400 by Sofia Encarnacion RN Device Skin Pressure Protection: absorbent pad utilized/changed pressure points protected [id number] areas padded tubing/devices free from skin contact Taken 04/04/2025 0200 by Sofia Encarnacion RN Device Skin Pressure Protection: absorbent pad utilized/changed pressure points protected [id number] areas padded tubing/devices free from skin contact Taken 04/04/2025 0000 by Sofia Encarnacion RN Device Skin Pressure Protection: absorbent pad utilized/changed pressure points protected [id number] areas padded tubing/devices free from skin contact Taken 04/03/20250 by Sofia Encarnacion RN Device Skin Pressure Protection: absorbent pad utilized/changed pressure points protected [id number] areas padded tubing/devices free from skin contact Taken 04/03/20251999 by Sofia Encarnacion RN Device Skin Pressure Protection: absorbent pad utilized/changed Goal: Absence of Ventilator-Induced Lung Injury Outcome: Progressing Intervention: Prevent Ventilator-Associated Pneumonia Recent Flowsheet Documentation Taken 04/04/2025 0400 by Sofia Encarnacion RN Head of Bed (HOB) Positioning: HOB elevated Taken 04/04/2025 0200 by Sofia Encarnacion RN Head of Bed (HOB) Positioning: HOB elevated Taken 04/04/2025 0000 by Sofia Encarnacion RN Head of Bed (HOB) Positioning: HOB elevated Taken 04/03/20252199 by Sofia Encarnacion RN Head of Bed (HOB) Positioning: HOB elevated Taken 04/03/20251999 by Sofia Encarnacion RN Head of Bed (HOB) Positioning: HOB elevated Problem: Skin Injury Risk Increased Goal: Skin Health and Integrity Outcome: Progressing Intervention: Optimize Skin Protection Recent Flowsheet Documentation Taken 04/04/2025 0400 by Sofia Encarnacion RN Activity Management: activity encouraged Pressure Reduction Techniques: frequent weight shift encouraged heels elevated off bed pressure points protected weight shift assistance provided Head of Bed (HOB) Positioning: HOB elevated Pressure Reduction Devices: heel offloading device utilized positioning supports utilized pressure-redistributing mattress utilized specialty bed utilized Skin Protection: incontinence pads utilized silicone border foam - heel silicone border foam - sacrum/coccyx Taken 04/04/2025 0200 by Sofia Encarnacion RN Activity Management: activity encouraged Pressure Reduction Techniques: frequent weight shift encouraged heels elevated off bed pressure points protected weight shift assistance provided Head of Bed (HOB) Positioning: HOB elevated Pressure Reduction Devices: heel offloading device utilized positioning supports utilized pressure-redistributing mattress utilized specialty bed utilized Skin Protection: incontinence pads utilized silicone border foam - heel silicone border foam - sacrum/coccyx Taken 04/04/2025 0000 by Sofia Encarnacion RN Activity Management: activity encouraged Pressure Reduction Techniques: frequent weight shift encouraged heels elevated off bed pressure points protected weight shift assistance provided Head of Bed (HOB) Positioning: HOB elevated Pressure Reduction Devices: heel offloading device utilized positioning supports utilized pressure-redistributing mattress utilized specialty bed utilized Skin Protection: incontinence pads utilized silicone border foam - heel silicone border foam - sacrum/coccyx Taken 04/03/2025 2200 by Sofia Encarnacion RN Activity Management: activity encouraged Pressure Reduction Techniques: frequent weight shift encouraged heels elevated off bed pressure points protected weight shift assistance provided Head of Bed (HOB) Positioning: HOB elevated Pressure Reduction Devices: heel offloading device utilized positioning supports utilized pressure-redistributing mattress utilized specialty bed utilized Skin Protection: incontinence pads utilized silicone border foam - heel silicone border foam - sacrum/coccyx Taken 04/03/2025 2000 by Sofia Encarnacion RN Activity Management: activity encouraged Pressure Reduction Techniques: heels elevated off bed pressure points protected weight shift assistance provided Head of Bed (HOB) Positioning: HOB elevated Pressure Reduction Devices: positioning supports utilized pressure-redistributing mattress utilized specialty bed utilized Skin Protection: incontinence pads utilized silicone border foam - heel silicone border foam - sacrum/coccyx Problem: Comorbidity Management Goal: Maintenance of Seizure Control Outcome: Progressing Problem: Violence Risk or Actual Goal: Anger and Impulse Control Outcome: Progressing Intervention: Minimize Safety Risk Recent Flowsheet Documentation Taken 04/04/2025 0400 by Sofia Encarnacion RN Enhanced Safety Measures: bed alarm set Taken 04/04/2025 0200 by Sofia Encarnacion RN Enhanced Safety Measures: bed alarm set Taken 04/04/2025 0000 by Sofia Encarnacion RN Enhanced Safety Measures: bed alarm set Taken 04/03/2025 220 by Sofia Encarnacion RN Enhanced Safety Measures: bed alarm set Taken 04/03/20251999 by Sofia Encarnacion RN Enhanced Safety Measures: bed alarm set Problem: Fall Injury Risk Goal: Absence of Fall and Fall-Related Injury Outcome: Progressing Intervention: Identify and Manage Contributors Recent Flowsheet Documentation Taken 04/04/2025 0400 by Sofia Encarnacion RN Self-Care Promotion: independence encouraged BADL personal objects within reach Taken 04/04/2025 0200 by Sofia Encarnacion RN Self-Care Promotion: independence encouraged BADL personal objects within reach Taken 04/04/2025 0000 by Sofia Encarnacion RN Self-Care Promotion: independence encouraged BADL personal objects within reach Taken 04/03/2025 2200 by Sofia Encarnacion RN Self-Care Promotion: independence encouraged BADL personal objects within reach Intervention: Promote Injury-Free Environment Recent Flowsheet Documentation Taken 04/04/2025 0400 by Sofia Encarnacion RN Safety Promotion/Fall Prevention: activity supervised assistive device/personal items within reach clutter free environment maintained fall prevention program maintained lighting adjusted nonskid shoes/slippers when out of bed room organization consistent safety round/check completed Taken 04/04/2025 0200 by Sofia Encarnacion RN Safety Promotion/Fall Prevention: activity supervised assistive device/personal items within reach clutter free environment maintained fall prevention program maintained lighting adjusted nonskid shoes/slippers when out of bed room organization consistent safety round/check completed Taken 04/04/2025 0000 by Sofia Encarnacion RN Safety Promotion/Fall Prevention: activity supervised assistive device/personal items within reach clutter free environment maintained fall prevention program maintained lighting adjusted nonskid shoes/slippers when out of bed room organization consistent safety round/check completed Taken 04/03/2025 2200 by Sofia Encarnacion RN Safety Promotion/Fall Prevention: activity supervised assistive device/personal items within reach clutter free environment maintained fall prevention program maintained lighting adjusted nonskid shoes/slippers when out of bed room organization consistent safety round/check completed Taken 04/03/2025 2000 by Sofia Encarnacion RN Safety Promotion/Fall Prevention: activity supervised assistive device/personal items within reach clutter free environment maintained fall prevention program maintained lighting adjusted nonskid shoes/slippers when out of bed room organization consistent safety round/check completed Goal Outcome Evaluation: * Susannah Ramos RN - 04/03/2025 5:36 PM EDT Problem: Adult Inpatient Plan of Care Goal: Plan of Care Review Outcome: Progressing Goal: Readiness for Transition of Care Outcome: Progressing Goal Outcome Evaluation: * Virginie Jacinto MS CCC-HYDRAULIC ENGINEER - 04/03/2025 2:22 PM EDT Goal Outcome Evaluation: Plan of Care Reviewed With: patient, other (see comments) (RN) Progress: improving Anticipated Discharge Disposition (HYDRAULIC ENGINEER): [facility] facility Treatment Assessment (HYDRAULIC ENGINEER): clinical signs of, aspiration, dysarthria, cognitive-linguistic disorder (04/03/25 142) Plan for Continued Treatment (HYDRAULIC ENGINEER): continue treatment per plan of care (04/03/251421) * Susannah Strickland Speech Therapy Student - 04/03/2025 9:20 AM EDT Goal Outcome Evaluation: Plan of Care Reviewed With: (P) patient, other (see comments) (RN) Progress: (P) improving Anticipated Discharge Disposition (HYDRAULIC ENGINEER): (P) [facility] facility Treatment Assessment (HYDRAULIC ENGINEER): (P) continued, toleration of diet, oral dysphagia, mild-moderate, pharyngeal dysphagia (04/03/25 09) Plan for Continued Treatment (HYDRAULIC ENGINEER): (P) continue treatment per plan of care (04/03/25919) Cosigned by Virginie Jacinto MS CCC-HYDRAULIC ENGINEER at 04/03/2025 1:25 PM EDT Associated attestation - Virginie Jacinto MS CCC-HYDRAULIC ENGINEER - 04/03/2025 1:25 PM EDT Virginie Jacinto, MS CCC-HYDRAULIC ENGINEER * Zakia Cárdenas, RN - 04/02/2025 5:54 PM EDT Goal Outcome Evaluation: Pt Aox2. Continued drowsiness. 1L LR bolus given. 75mL LR and D5. UOP 300mL- Bladder scan 0mL, gonsalez irrigated for patency, KILN REPAIRER aware. Pt up to chair with PT/OT. * Yumi Singh, Speech Therapy Student - 04/02/2025 2:34 PM EDT Goal Outcome Evaluation: Plan of Care Reviewed With: (P) patient, other (see comments) (RN) Progress: (P) improving Anticipated Discharge Disposition (HYDRAULIC ENGINEER): (P) [facility] facility HYDRAULIC ENGINEER Diagnosis: mild-moderate, cognitive-linguistic disorder, dysarthria (04/02/25 1100) HYDRAULIC ENGINEER Swallowing Diagnosis: (P) oral dysphagia, mild-moderate, pharyngeal dysphagia (04/02/25 1330) Cosigned by Denice Alva, MS CCC-HYDRAULIC ENGINEER at 04/02/2025 3:04 PM EDT Associated attestation - Denice Alva, MS CCC-HYDRAULIC ENGINEER - 04/02/2025 3:04 PM EDT Denice Alva, MS CCC-HYDRAULIC ENGINEER * Yumi Singh, Speech Therapy Student - 04/02/2025 12:38 PM EDT Goal Outcome Evaluation: Plan of Care Reviewed With: (P) patient, other (see comments) (RN) Progress: (P) improving Anticipated Discharge Disposition (HYDRAULIC ENGINEER): (P) [facility] facility HYDRAULIC ENGINEER Diagnosis: (P) mild-moderate, cognitive-linguistic disorder, dysarthria (04/02/25 1100) HYDRAULIC ENGINEER Swallowing Diagnosis: (P) oral dysphagia, R/O pharyngeal dysphagia (04/02/25 1100) Cosigned by Denice Alva, MS CCC-HYDRAULIC ENGINEER at 04/02/2025 1:07 PM EDT Associated attestation - Denice Alva MS CCC-HYDRAULIC ENGINEER - 04/02/2025 1:07 PM EDT Denice Alva, MS CCC-HYDRAULIC ENGINEER * Wendi Boswell, PT - 04/02/2025 10:50 AM EDT Goal Outcome Evaluation: Plan of Care Reviewed With: patient Outcome Evaluation: PT eval complete. Pt presents with balance deficits, generalized weakness, cognitive impairments, limited safety awareness, impaired functional transfers, and decreased functionalendurance warranting IPPT. Pt assisted in SPT w/ B UE support and MaxAx2. PT rec SNF, will continueto monitor progress. Anticipated Discharge Disposition (PT): [facility] facility * Shelly Jones, OT - 04/02/2025 10:50 AM EDT Goal Outcome Evaluation: Outcome Evaluation: OT eval complete. Pt presents with deficits including generalized weakness, decreased functional mobility, decreased activity tolerance, and decreased balance warranting IPOT services. Stand pivot transfer with max A x2, completed sit to stand with mod A x2. Rec d/c to SNF. Anticipated Discharge Disposition (OT): [facility] facility * Modesta Gunderson RN - 04/02/2025 6:50 AM EDT Goal Outcome Evaluation: Progress: improving O2 sat decreased to high 80s at beginning of shift, 2L NC worn through night. Pt weaned off levo and precedex. BP tolerating and VSS. Pt remains slightly drowsy and confused. * Zakia Cárdenas, TYRONE - 04/01/2025 6:37 PM EDT Goal Outcome Evaluation: Extubated 1506. RA. Pt drowsy and oriented to self only. Very restless. CIWA 4- 7. Levophed and precedex, see mar. * Av Varghese MS CCC-HYDRAULIC ENGINEER - 04/01/2025 4:12 PM EDT Goal Outcome Evaluation: Plan of Care Reviewed With: patient Progress: no change Anticipated Discharge Disposition (HYDRAULIC ENGINEER): [facility] facility HYDRAULIC ENGINEER Swallowing Diagnosis: oral dysphagia, R/O pharyngeal dysphagia (04/01/25 6055) * Poonam Brizuela RN - 04/01/2025 5:53 AM EDT Problem: Adult Inpatient Plan of Care Goal: Absence of Hospital-Acquired Illness or Injury Intervention: Prevent Skin Injury Description: Perform a screening for skin injury risk, such as pressure or moisture-associated skindamage on admission and at regular intervals throughout hospital stay. Keep all areas of skin (especially folds) clean and dry. Maintain adequate skin hydration. Relieve and redistribute pressure and protect bony prominences and skin at risk for injury; implement measures based on patient-specific risk factors. Match turning and repositioning schedule to clinical condition. Encourage weight shift frequently; assist with reposition if unable to complete independently. Float heels off bed; avoid pressure on the Achilles tendon. Keep skin free from extended contact with medical devices. Optimize nutrition and hydration. Encourage functional activity and mobility, as early as tolerated. Use aids (e.g., slide boards, mechanical lift) during transfer. Problem: Restraint, Nonviolent Goal: Absence of Harm or Injury Outcome: Progressing Intervention: Implement Least Restrictive Safety Strategies Description: Consider personal and environmental factors contributing to unsafe nonviolent, self-destructive behavior. Utilize diversional activity or alternative device protection. Document alternative strategies and less restrictive intervention attempts and their effects. Use the least restrictive method of restraint. Recognize restraint should only be used if needed to improve the patient's wellbeing and less restrictive interventions have been determined to be ineffective. Reassess continued need frequently. Intervention: Protect Dignity, Rights and Personal Wellbeing Description: Explain restraint rationale and procedure to patient and family/support person prior to or at time of application. Regularly assess personal needs and for changes in behavior and clinical condition, as well as physical and emotional wellbeing. Provide reassurance and emotional support. Intervention: Protect Skin and Joint Integrity Description: Frequently assess restraint application site for skin integrity, edema and perfusion distal to the site; document findings. Consider protective skin barrier with risk of skin injury. Release and replace restraint at regular intervals. Assist with frequent joint range of motion activity. Problem: Fall Injury Risk Goal: Absence of Fall and Fall-Related Injury Outcome: Progressing Intervention: Identify and Manage Contributors Description: Develop a fall prevention plan, considering patient-centered interventions and family/caregiver involvement; identify and address patient's facilitators and barriers. Provide reorientation, appropriate sensory stimulation and routines with changes in mental status to decrease risk of fall. Promote use of personal vision and auditory aids. Assess assistance level required for safe and effective self-care; provide support as needed, such as toileting and mobilization. For age 65 and older, implement timed toileting with assistance. Encourage physical activity, such as performance of mobility and self-care at highest level of patient ability, multicomponent exercise program and provision of appropriate assistive devices. If fall occurs, assess the severity of injury; implement fall injury protocol. Determine the cause and revise fall injury prevention plan. Regularly review and advocate for medication adjustment to decrease fall risk; consider administration times, polypharmacy and age. Balance adequate pain management with potential for oversedation. Intervention: Promote Injury-Free Environment Description: Provide a safe, barrier-free environment that encourages independent activity. Keep care area uncluttered and well-lighted. Determine need for increased observation or monitoring. Avoid use of devices that minimize mobility, such as restraints or indwelling urinary catheter. Goal Outcome Evaluation: documented in this encounter Miscellaneous Notes * Case Management/Social Work - Yumiko Thomas RN - 04/09/2025 8:41 AM EDT Case Management Discharge Note Final Note: Patient's plan is an acute rehab bed at [facility] in stroke unit at [facility] today, 04/09. Nurse to call report to [phone]. CM will fax discharge summary when available to [phone]. [facility] will transport at 1130. Patient needs to be at the Maternity entrance by 1120. Selected Continued Care - Admitted Since 03/31/2025 Destination Coordination complete. Service Provider Services Address Phone Fax Patient Preferred [facility] Inpatient Rehabilitation [address] [id number] -- Durable Medical Equipment No services have been selected for the patient. Dialysis/Infusion No services have been selected for the patient. Home Medical Care No services have been selected for the patient. Therapy No services have been selected for the patient. Community & DME No services have been selected for the patient. Community Resources No active community resources. Transportation Services Transportation: [facility] ([facility]) W[facility]: Other Final Discharge Disposition Code: 62 - inpatient rehab facility * Case Management/Social Work - Yumiko Thomas RN - 04/08/2025 2:20 PM EDT Continued Stay Note [facility] Patient Name: Regine Anguiano Today's Date: 04/08/2025 Admit Date: 03/31/2025 Plan: Inpatient Rehab Discharge Plan Row Name 04/08/25 1417 Plan Plan Inpatient Rehab Plan Comments Spoke with admissions at [facility]. They do not have any available beds. Attempted to follow up on referral to [facility], no answer. Called [facility] and they do nothave a rehab unit. Referral also given to [facility] at [facility]. CM will continue to follow. Discharge Codes No documentation. Expected Discharge Date and Time Expected Discharge Date Expected Discharge Time Apr 10, 2025 Yumiko Thomas RN * Therapy Treatment Note - Corin Hightower PT - 04/08/2025 2:15 PM EDT Images from the original note were not included. Patient Name: Regine Anguiano : 1955 Today's Date: 04/08/2025 Admit Date: 03/31/2025 Visit Dx: ICD-10-CM ICD-9-CM 1. Oropharyngeal dysphagia R13.12 787.22 Patient Active Problem List Diagnosis Seizure Aspiration pneumonitis -aspiration pneumonitis versus pneumonia Acute hypoxemic respiratory failure -noted from outside hospital where she was intubated. Alcohol dependence with withdrawal delirium -presented with seizures concerning for potential alcohol withdrawal Anemia -uncertain etiology or chronicity Past Medical History: Diagnosis Date Hypertension Past Surgical History: Procedure Laterality Date HYSTERECTOMY General Information Row Name 04/08/25 1451 Physical Therapy Time and Intention Document Type therapy note (daily note) -KR Mode of Treatment individual therapy;physical therapy -KR Row Name 04/08/25 1451 General Information Patient Profile Reviewed yes -KR Existing Precautions/Restrictions fall;seizures;other (see comments) low vision (R>L), visual hallucinations -KR Barriers to Rehab medically complex;previous functional deficit;cognitive status;visual deficit -KR Row Name 04/08/25 1451 Cognition Orientation Status (Cognition) oriented to;person;place -KR Row Name 04/08/25 1451 Safety Issues/Impairments Affecting Functional Mobility Safety Issues Affecting Function (Mobility) insight into deficits/self- awareness;awareness of need for assistance;problem-solving;safety precaution awareness;sequencing abilities;positioning of assistive device;judgment;safety precautions follow-through/compliance -KR Impairments Affecting Function (Mobility) balance;cognition;coordination;endurance/activity tolerance;motor planning;postural/trunk control;strength;visual/perceptual -KR Cognitive Impairments, Mobility Safety/Performance awareness, need for assistance;insight into defic its/self-awareness;problem-solving/reasoning;judgment;sequencing abilities;safety precaution follow-through;safety precaution awareness -KR User Lockwood (r) = Recorded By, (t) = Taken By, (c) = Cosigned By Initials Name Provider Type KR Campbell, Corin, PT Physical Therapist Mobility Row Name 04/08/25 145 Bed Mobility Bed Mobility supine-sit -KR Supine-Sit [place] (Bed Mobility) contact guard -KR Assistive Device (Bed Mobility) bed rails;head of bed elevated;repositioning sheet -KR Comment, (Bed Mobility) cues for LE progression and bedrail use -KR Row Name 04/08/25 145 Sit-Stand Transfer Sit-Stand [place] (Transfers) moderate assist (50% patient effort);1 person assist -KR Assistive Device (Sit-Stand Transfers) walker, front-wheeled -KR Comment, (Sit-Stand Transfer) 1x from bed, 5x STS transfer training from chair with cues for safe hand placement, 1x STS from chair, 1x from toilet with cues for grab bar use. -KR Row Name 04/08/25 145 Gait/Stairs (Locomotion) [place] Level (Gait) moderate assist (50% patient effort);1 person assist;1 person to manage equipment -KR Assistive Device (Gait) walker, front-wheeled -KR Distance in Feet (Gait) 20 6 + 20 + 20 -KR Deviations/Abnormal Patterns (Gait) lili decreased;gait speed decreased;stride length decreased;weight shifting decreased;bilateral deviations -KR Bilateral Gait Deviations forward flexed posture;heel strike decreased -KR Comment, (Gait/Stairs) pt required max cueing for increased step length B, maintaining close proximity to walker. Assist req'd for walker management and TCs for LE progression. Pt with visual hallucinations throughout ambulation. Farther distance limited by fatigue and weakness. -KR User Lockwood (r) = Recorded By, (t) = Taken By, (c) = Cosigned By Initials Name Provider Type KR Corin Hightower, PT Physical Therapist Obj/Interventions Row Name 04/08/25 145 Motor Skills Therapeutic Exercise knee;hip;ankle -KR Row Name 04/08/25 145 Hip (Therapeutic Exercise) Hip (Therapeutic Exercise) strengthening exercise -KR Hip Strengthening (Therapeutic Exercise) 10 repetitions;bilateral;aDduction;aBduction -KR Row Name 04/08/25 145 Knee (Therapeutic Exercise) Knee (Therapeutic Exercise) strengthening exercise -KR Knee Strengthening (Therapeutic Exercise) 10 repetitions;bilateral;SLR (straight leg raise);2 sets -KR Row Name 04/08/25 145 Ankle (Therapeutic Exercise) Ankle (Therapeutic Exercise) AROM (active range of motion) -KR Ankle AROM (Therapeutic Exercise) 10 repetitions;bilateral;dorsiflexion;plantarflexion -KR Row Name 04/08/25 145 Balance Balance Assessment sitting static balance;sitting dynamic balance;standing static balance;standing dynamic balance -KR Static Sitting Balance contact guard -KR Dynamic Sitting Balance contact guard -KR Position, Sitting Balance unsupported;sitting in chair;sitting edge of bed;other (see comments) toilet -KR Static Standing Balance minimal assist;1-person assist -KR Dynamic Standing Balance moderate assist;1-person assist;verbal cues;non-verbal cues (demo/gesture);1 person to manage equipment -KR Position/Device Used, Standing Balance supported;walker, front-wheeled -KR Balance Interventions sitting;standing;sit to stand;supported;static;dynamic -KR User Lockwood (r) = Recorded By, (t) = Taken By, (c) = Cosigned By Initials Name Provider Type KR Corin Hightower, PT Physical Therapist Goals/Plan No documentation. Clinical Impression Row Name 04/08/25 145 Pain Pretreatment Pain Rating 0/10 - no pain -KR Posttreatment Pain Rating 0/10 - no pain -KR Row Name 04/08/25 145 Plan of Care Review Plan of Care Reviewed With patient -KR Progress improving -KR Outcome Evaluation Pt with significant improvement in mobility tasks and command following this session. Pt able to ambulate in room with 1-person assist this date with FWW, however limited by visualhallucinations. Pt with good response to verbal cueing for improved transfer technique and walker management. Continue to rec SNF upon dc. -KR Row Name 04/08/25 145 Therapy Assessment/Plan (PT) Rehab Potential (PT) good -KR Criteria for Skilled Interventions Met (PT) yes;skilled treatment is necessary;meets criteria -KR Therapy Frequency (PT) daily -KR Row Name 04/08/25 145 Vital Signs Pre Patient Position Supine -KR Intra Patient Position Standing -KR Post Patient Position Sitting -KR Row Name 04/08/25 145 Positioning and Restraints Pre-Treatment Position in bed -KR Post Treatment Position chair -KR In Chair notified nsg;reclined;encouraged to call for assist;call light within reach;exit alarm on;waffle cushion;legs elevated -KR User Lockwood (r) = Recorded By, (t) = Taken By, (c) = Cosigned By Initials Name Provider Type Corin Segundo, PT Physical Therapist Outcome Measures Row Name 04/08/25 1520 04/08/25 0800 How much help from another person do you currently need... Turning from your back to your side while in flat bed without using bedrails? 3 -KR 2 -CG Moving from lying on back to sitting on the side of a flat bed without bedrails? 3 -KR 1 -CG Moving to and from a bed to a chair (including a wheelchair)? 2 -KR 1 -CG Standing up from a chair using your arms (e.g., wheelchair, bedside chair)? 2 - KR 1 -CG Climbing 3-5 steps with a railing? 2 -KR 1 -CG To walk in hospital room? 2 -KR 1 -CG AM-PAC 6 Clicks Score (PT) 14 -KR 7 -CG Highest Level of Mobility Goal Move to Chair/Commode-4 -KR Bed Activities/Dependent Transfer-2 -CG Row Name 04/08/25 1520 Functional Assessment Outcome Measure Options AM-PAC 6 Clicks Basic Mobility (PT) -KR User Lockwood (r) = Recorded By, (t) = Taken By, (c) = Cosigned By Initials Name Provider Type Steph Hancock, RN Registered Nurse Corin Segundo, PT Physical Therapist Physical Therapy Education Title: PT OT HYDRAULIC ENGINEER Therapies (In Progress) Topic: Physical Therapy (In Progress) Point: Mobility training (Done) Learning Progress Summary Patient Acceptance, E, VU by KAYLENE at 04/08/2025 1520 Acceptance, E, NR by MATTY at 04/02/2025 1325 Point: Home exercise program (Not Started) Learner Progress: Not documented in this visit. Point: Body mechanics (Done) Learning Progress Summary Patient Acceptance, E, VU by KAYLENE at 04/08/2025 1520 Acceptance, E, NR by MATTY at 04/02/2025 1325 Point: Precautions (Done) Learning Progress Summary Patient Acceptance, E, VU by KAYLENE at 04/08/2025 1520 Acceptance, E, NR by MATTY at 04/02/2025 1325 User Lockwood Initials Effective Dates Name Provider Type Tim MAURICE 06/11/22 - Corin Hightower, PT Physical Therapist PT KE 04/28/23 - Wendi Boswell PT Physical Therapist PT PT Recommendation and Plan Recommended discharge disposition is based on the functional assessment performed by PT/OT/Speech therapy (as applicable) and may not reflect the medical necessity determined by your provider or services covered by an individual patient's insurance plan or patient resource. Therapy Frequency (PT): daily Progress: improving Outcome Evaluation: Pt with significant improvement in mobility tasks and command following this session. Pt able to ambulate in room with 1-person assist this date with FWW, however limited by visual hallucinations. Pt with good response to verbal cueing for improved transfer technique and walker management. Continue to rec SNF upon dc. Time Calculation: PT Charges Row Name 04/08/25 1521 Time Calculation Start Time 1415 -KR PT Received On 04/08/25 -KR Timed Charges 13202 - PT Therapeutic Exercise Minutes 8 -KR 78742 - Gait Training Minutes 15 -KR 00312 - PT Therapeutic Activity Minutes 15 -KR Total Minutes Timed Charges Total Minutes 38 -KR Total Minutes 38 -KR User Lockwood (r) = Recorded By, (t) = Taken By, (c) = Cosigned By Initials Name Provider Type KR Corin Hightower, PT Physical Therapist Therapy Charges for Today Code Description Service Date Service Provider Modifiers Qty [id number] HC PT THER PROC EA 15 MIN 04/08/2025 Corin Hightower, PT GP 1 58829755971 HC GAIT TRAINING EA 15 MIN 04/08/2025 Corin Hightower, PT GP 1 03522799844 HC PT THERAPEUTIC ACT EA 15 MIN 04/08/2025 Corin Hightower, PT GP 1 26783539143 HC PT THER SUPP EA 15 MIN 04/08/2025 Corin Hightower, PT GP 2 PT G-Codes Outcome Measure Options: AM-PAC 6 Clicks Basic Mobility (PT) AM-PAC 6 Clicks Score (PT): 14 AM-PAC 6 Clicks Score (OT): 12 PT Discharge Summary Anticipated Discharge Disposition (PT): [facility] facility Corin Hightower PT 04/08/2025 * MBS/VFSS/FEES - Rand Imelda Jacobs, MS CF-HYDRAULIC ENGINEER - 04/07/2025 12:06 PM EDT Images from the original note were not included. Acute Care - Speech Language Pathology Swallow Re-Evaluation [facility] Fiberoptic Endoscopic Evaluation of Swallowing (FEES) Patient Name: Regine Anguiano : 1955 Today's Date: 04/07/2025 Admit Date: 03/31/2025 Visit Dx: ICD-10-CM ICD-9-CM 1. Oropharyngeal dysphagia R13.12 787.22 Patient Active Problem List Diagnosis Seizure Aspiration pneumonitis -aspiration pneumonitis versus pneumonia Acute hypoxemic respiratory failure -noted from outside hospital where she was intubated. Alcohol dependence with withdrawal delirium -presented with seizures concerning for potential alcohol withdrawal Anemia -uncertain etiology or chronicity Past Medical History: Diagnosis Date Hypertension Past Surgical History: Procedure Laterality Date HYSTERECTOMY HYDRAULIC ENGINEER Recommendation and Plan Recommended discharge disposition is based on the functional assessment performed by PT/OT/Speech therapy (as applicable) and may not reflect the medical necessity determined by your provider or services covered by an individual patient's insurance plan or patient resource. HYDRAULIC ENGINEER Swallowing Diagnosis: mild, oral dysphagia, pharyngeal dysphagia (04/07/251029) HYDRAULIC ENGINEER Diet Recommendation: thin liquids, mechanical ground textures, no mixed consistencies () Recommended Precautions and Strategies: upright posture during/after eating, general aspiration precautions, assist with feeding, small bites of food and sips of liquid (04/07/251029) HYDRAULIC ENGINEER Rec. for Method of Medication Administration: with thin liquids, with puree, as tolerated (Medswith single sips thin or with puree) (04/07/251029) Monitor for Signs of Aspiration: yes, notify HYDRAULIC ENGINEER if any concerns (04/07/251029) Swallow Criteria for Skilled Therapeutic Interventions Met: demonstrates skilled criteria () Anticipated Discharge Disposition (HYDRAULIC ENGINEER): [facility] facility (04/07/251029) Rehab Potential/Prognosis, Swallowing: good, to achieve stated therapy goals (04/07/251029) Therapy Frequency (Swallow): 5 days per week (04/07/251029) Predicted Duration Therapy Intervention (Days): 2 weeks (04/07/25 1030) Oral Care Recommendations: Oral Care BID/PRN, Toothbrush (04/07/25 1030) Demonstrates Need for Referral to Another Service: otolaryngology (ENT) (04/07/25 1030) SWALLOW EVALUATION (Last 72 Hours) HYDRAULIC ENGINEER Adult Swallow Evaluation Row Name 04/07/25 1030 04/06/25 1115 Rehab Evaluation Document Type re-evaluation -SM therapy note (daily note) -DV Subjective Information no complaints -SM no complaints -DV Patient Observations alert;cooperative -SM alert;cooperative -DV Patient/Family/Caregiver Comments/Observations RN and tech present -SM no family present -DV Patient Effort good -SM good -DV Symptoms Noted During/After Treatment none -SM none -DV General Information Patient Profile Reviewed yes -SM -- Pertinent History Of Current Problem See initial eval -SM -- Current Method of Nutrition honey-thick liquids;pureed -SM -- Precautions/Limitations, Vision vision impairment, left -SM -- Precautions/Limitations, Hearing hearing impairment, bilaterally -SM -- Prior Level of Function-Communication unknown -SM -- Prior Level of Function-Swallowing unknown -SM -- Plans/Goals Discussed with patient;agreed upon -SM -- Barriers to Rehab none identified -SM -- Patient's Goals for Discharge patient did not state -SM -- Pain Pretreatment Pain Rating 0/10 - no pain -SM 0/10 - no pain -DV Posttreatment Pain Rating 0/10 - no pain -SM 0/10 - no pain -DV Oral Motor Structure and Function Dentition Assessment teeth are in poor condition;missing teeth -SM -- Secretion Management WNL/WFL -SM -- Mucosal Quality moist, healthy -SM -- Volitional Swallow unable to elicit -SM -- Volitional Cough WFL -SM -- Oral Musculature and Cranial Nerve Assessment Oral Motor General Assessment generalized oral motor weakness -SM -- General Eating/Swallowing Observations Respiratory Support Currently in Use room air -SM -- Eating/Swallowing Skills self-fed;fed by staff/caregiver;needed assist -SM -- Positioning During Eating upright 90 degree;upright in bed -SM -- Utensils Used spoon;straw -SM -- Consistencies Trialed regular textures;thin liquids;pureed -SM -- Fiberoptic Endoscopic Evaluation of Swallowing (FEES) Risks/Benefits Reviewed risks/benefits explained;patient;agreed to eval -SM -- Nasal Entry left: -SM -- Scope serial number/identification [id number] -SM -- Anatomy and Physiology Anatomic Considerations vocal folds;other (see comments) Bilateral granuloma- appearing lesions on VF's -SM -- Velopharyngeal WFL -SM -- Base of Tongue symmetrical;range adequate -SM -- Epiglottis WFL -SM -- Laryngeal Function Breathing symmetrical -SM -- Laryngeal Function Phonation symmetrical -SM -- Laryngeal Function to Breath Hold RUBBER AND POUNDER -SM -- Secretion Rating Scale (Too et alElgin 1996) 0- normal, no visible secretions -SM -- Spontaneous Swallow frequency adequate -SM -- Sensory sensed scope -SM -- FEES Interpretation Oral Phase prolonged manipulation;with solids only;prespill of liquids into pharynx -SM -- Initiation of Pharyngeal Swallow Initiation of Pharyngeal Swallow bolus in pyriform sinuses -SM -- Pharyngeal Phase impaired pharyngeal phase of swallowing -SM -- Residue thin liquids;valleculae;pyriform sinuses;secondary to reduced hyolaryngeal excursion;secondary to reduced laryngeal elevation;secondary to reduced base of tongue retraction;secondary to reduced posterior pharyngeal wall stripping;other (see comments) Mild -SM -- Response to Residue cleared residue;with cued swallow -SM -- Attempted Compensatory Maneuvers bolus size -SM -- Successful Compensatory Maneuver Competency patient able to;demonstrate compensations;with cues -SM-- Pharyngeal Phase, Comment No penetration or aspiration directly observed on study. When pt was instructed to take sequential sips of thin liquids, she did have coughing for several minutes. HYDRAULIC ENGINEER attempted to calm pt sufficiently to view laryngeal vestibule, but pt exhibited poor toleration of scope following coughing. HYDRAULIC ENGINEER added small single sips of thin as a precaution -SM -- HYDRAULIC ENGINEER Evaluation Clinical Impression HYDRAULIC ENGINEER Swallowing Diagnosis mild;oral dysphagia;pharyngeal dysphagia -SM -- Functional Impact risk of aspiration/pneumonia -SM -- Rehab Potential/Prognosis, Swallowing good, to achieve stated therapy goals -SM -- Swallow Criteria for Skilled Therapeutic Interventions Met demonstrates skilled criteria -SM -- HYDRAULIC ENGINEER Treatment Clinical Impressions Treatment Assessment (HYDRAULIC ENGINEER) -- clinical signs of;aspiration -DV Daily Summary of Progress (HYDRAULIC ENGINEER) -- progress towards functional goals is fair -DV Barriers to Overall Progress (HYDRAULIC ENGINEER) -- Cognitive status -DV Plan for Continued Treatment (HYDRAULIC ENGINEER) -- continue treatment per plan of care -DV Care Plan Review -- evaluation/treatment results reviewed;care plan/treatment goals reviewed;risks/benefits reviewed;current/potential barriers reviewed;patient/other agree to care plan -DV Recommendations Therapy Frequency (Swallow) 5 days per week -SM -- Predicted Duration Therapy Intervention (Days) 2 weeks - -- HYDRAULIC ENGINEER Diet Recommendation thin liquids;mechanical ground textures;no mixed consistencies -SM -- Recommended Precautions and Strategies upright posture during/after eating;general aspiration precautions;assist with feeding;small bites of food and sips of liquid - -- Oral Care Recommendations Oral Care BID/PRN;Toothbrush - -- HYDRAULIC ENGINEER Rec. for Method of Medication Administration with thin liquids;with puree;as tolerated Meds with single sips thin or with puree - -- Monitor for Signs of Aspiration yes;notify HYDRAULIC ENGINEER if any concerns -SM -- Anticipated Discharge Disposition (HYDRAULIC ENGINEER) [facility] - -- Demonstrates Need for Referral to Another Service otolaryngology (ENT) - -- User Lockwood (r) = Recorded By, (t) = Taken By, (c) = Cosigned By Initials Name Effective Dates DV Madison Dial MS CCC-HYDRAULIC ENGINEER 11/26/20 - SM Imelda Gordillo MS CF-HYDRAULIC ENGINEER 11/15/24 - EDUCATION The patient has been educated in the following areas: Dysphagia (Swallowing Impairment) Modified Diet Instruction. HYDRAULIC ENGINEER GOALS Row Name 04/07/25 1030 04/06/25 1115 (LTG) Patient will demonstrate functional swallow for Diet Texture (Demonstrate functional swallow) regular textures -SM regular textures -DV Liquid viscosity (Demonstrate functional swallow) thin liquids -SM thin liquids -DV [place] (Demonstrate functional swallow) with minimal cues (75-90% accuracy) -SM with minimal cues (75-90% accuracy) -DV Time Frame (Demonstrate functional swallow) 2 weeks -SM 2 weeks -DV Barriers (Demonstrate functional swallow) -- Lethargy -DV Progress/Outcomes (Demonstrate functional swallow) goal ongoing - continuing progress toward goal-DV (STG) Patient will tolerate trials of Consistencies Trialed (Tolerate trials) mechanical ground textures;thin liquids -SM soft to chew (ground) textures;nectar/ mildly thick liquids -DV Desired Outcome (Tolerate trials) without signs/symptoms of aspiration;with adequate oral prep/transit/clearance -SM without signs/symptoms of aspiration;with adequate oral prep/transit/clearance -DV [place] (Tolerate trials) with minimal cues (75-90% accuracy) -SM with moderate cues (50-74% accuracy) -DV Time Frame (Tolerate trials) 1 week -SM 1 week -DV Progress/Outcomes (Tolerate trials) goal revised this date -SM continuing progress toward goal -DV Comment (Tolerate trials) -- Delayed coughs noted w/ nectar-thick liquid today. No s/sx aspiration w/ puree or honey-thick liquid. Recommend downgrade to honey liquids and repeat FEES tomorrow. -DV (STG) Lingual Strengthening Goal 1 (HYDRAULIC ENGINEER) Activity (Lingual Strengthening Goal 1, HYDRAULIC ENGINEER) increase lingual tone/sensation/control/coordination/movement;increase tongue back strength -SM increase lingual tone/sensation/control/coordination/movement;increase tongue back strength -DV Increase Lingual Tone/Sensation/Control/Coordination/Movement lingual resistance exercises -SM lingual resistance exercises -DV Increase Tongue Back Strength lingual resistance exercises -SM lingual resistance exercises -DV [place]/Accuracy (Lingual Strengthening Goal 1, HYDRAULIC ENGINEER) with moderate cues (50-74% accuracy) -SM with moderate cues (50-74% accuracy) -DV Time Frame (Lingual Strengthening Goal 1, HYDRAULIC ENGINEER) 1 week -SM 1 week -DV Progress/Outcomes (Lingual Strengthening Goal 1, HYDRAULIC ENGINEER) goal ongoing -SM continuing progress toward goal -DV Comment (Lingual Strengthening Goal 1, HYDRAULIC ENGINEER) -- pt able to complete basic lingual tone/control exercises -DV (STG) Pharyngeal Strengthening Exercise Goal 1 (HYDRAULIC ENGINEER) Activity (Pharyngeal Strengthening Goal 1, HYDRAULIC ENGINEER) increase superior movement of the hyolaryngeal complex;increase anterior movement of the hyolaryngeal complex;increase closure at entrance to airway/closure of airway at glottis;increase squeeze/positive pressure generation -SM increase superior movement of the hyolaryngeal complex;increase anterior movement of the hyolaryngeal complex;increase closure at entrance to airway/closure of airway at glottis;increase squeeze/positive pressure generation-DV Increase Superior Movement of the Hyolaryngeal Complex Aye -SM Aye -DV Increase Anterior Movement of the Hyolaryngeal Complex chin tuck against resistance (CTAR) -SM chintuck against resistance (CTAR) -DV Increase Closure at Entrance to Airway/Closure of Airway at Glottis supraglottic swallow -SM supraglottic swallow -DV Increase Squeeze/Positive Pressure Generation hard effortful swallow -SM hard effortful swallow -DV [place]/Accuracy (Pharyngeal Strengthening Goal 1, HYDRAULIC ENGINEER) with moderate cues (50-74% accuracy) -SM with moderate cues (50-74% accuracy) -DV Time Frame (Pharyngeal Strengthening Goal 1, HYDRAULIC ENGINEER) 1 week -SM 1 week -DV Progress/Outcomes (Pharyngeal Strengthening Goal 1, HYDRAULIC ENGINEER) goal ongoing -SM continuing progress toward goal -DV Comment (Pharyngeal Strengthening Goal 1, HYDRAULIC ENGINEER) -- pt able to complete SSG and CTAR exercises -DV (STG) Swallow Compensatory Strategies Goal 1 (HYDRAULIC ENGINEER) Activity (Swallow Compensatory Strategies/Techniques Goal 1, HYDRAULIC ENGINEER) small straw sips;small cup sips -SM -- [place]/Accuracy (Swallow Compensatory Strategies/Techniques Goal 1, HYDRAULIC ENGINEER) independently (over 90% accuracy) -SM -- Time Frame (Swallow Compensatory Strategies/Techniques Goal 1, HYDRAULIC ENGINEER) 1 week -SM -- Progress/Outcomes (Swallow Compensatory Strategies/Techniques Goal 1, HYDRAULIC ENGINEER) new goal - -- Comment (Swallow Compensatory Strategies/Techniques Goal 1, HYDRAULIC ENGINEER) Small sips thin -SM -- Patient will demonstrate functional communication skills for return to discharge environment [place] -- Independently -DV Time frame -- 2 weeks -DV Progress/Outcomes -- continuing progress toward goal -DV HYDRAULIC ENGINEER Diagnostic Treatment Patient will participate in further assessment in the following areas -- motor speech;higher-level cognitive-linguistic;clarification of baseline cognitive communication status -DV Time Frame (Diagnostic) -- 1 week -DV Progress/Outcomes (Additional Goal 1, HYDRAULIC ENGINEER) -- goal ongoing -DV Memory Skills Goal 1 (HYDRAULIC ENGINEER) Improve Memory Skills Through Goal 1 (HYDRAULIC ENGINEER) -- listen to a paragraph and answer questions;80%;with minimal cues (75-90%) -DV Time Frame (Memory Skills Goal 1, HYDRAULIC ENGINEER) -- 1 week -DV Progress (Memory Skills Goal 1, HYDRAULIC ENGINEER) -- 70% -DV Progress/Outcomes (Memory Skills Goal 1, HYDRAULIC ENGINEER) -- continuing progress toward goal -DV Functional Problem Solving Skills Goal 1 (HYDRAULIC ENGINEER) Improve Problem Solving Through Goal 1 (HYDRAULIC ENGINEER) -- answer questions about ADL problems;determine solutions to simple ADL/safety problems;determine solutions to complex problems;80%;with minimal cues (75-90%) -DV Time Frame (Problem Solving Goal 1, HYDRAULIC ENGINEER) -- 1 week -DV Progress/Outcomes (Problem Solving Goal 1, HYDRAULIC ENGINEER) -- goal ongoing -DV User Lockwood (r) = Recorded By, (t) = Taken By, (c) = Cosigned By Initials Name Provider Type Madison English MS CCC-HYDRAULIC ENGINEER Speech and Language Pathologist Imelda Farfan MS CF-HYDRAULIC ENGINEER Speech and Language Pathologist Time Calculation: Time Calculation- HYDRAULIC ENGINEER Row Name 04/07/25 1205 Time Calculation- HYDRAULIC ENGINEER HYDRAULIC ENGINEER Start Time 1030 -SM HYDRAULIC ENGINEER Received On 04/07/25 -SM Untimed Charges 94522-WH Fiberoptic Endo Eval Swallow Minutes 98 -SM Total Minutes Untimed Charges Total Minutes 98 -SM Total Minutes 98 -SM User Lockwood (r) = Recorded By, (t) = Taken By, (c) = Cosigned By Initials Name Provider Type Imelda Farfan MS CF-HYDRAULIC ENGINEER Speech and Language Pathologist Therapy Charges for Today Code Description Service Date Service Provider Modifiers Qty 84807405743 HC ST FIBEROPTIC ENDO EVAL SWALL 7 04/07/2025 Imelda Gordillo MS CF-HYDRAULIC ENGINEER GN 1 Imelda Gordillo MS CF-HYDRAULIC ENGINEER 04/07/2025 * Therapy Treatment Note - Madison Dial MS CCC-HYDRAULIC ENGINEER - 04/06/2025 12:06 PM EDT Acute Care - Speech Language Pathology Treatment Note Effie Patient Name: Regine Anguiano : 1955 Today's Date: 04/06/2025 Admit Date: 03/31/2025 Visit Dx: ICD-10-CM ICD-9-CM 1. Oropharyngeal dysphagia R13.12 787.22 Patient Active Problem List Diagnosis Seizure Aspiration pneumonitis -aspiration pneumonitis versus pneumonia Acute hypoxemic respiratory failure -noted from outside hospital where she was intubated. Alcohol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 Starkey RN * Therapy Treatment Note - Virginie Jacinto MS [facility]-HYDRAULIC ENGINEER - 04/03/2025 2:22 PM EDT Images from the original note were not included. Acute Care - Speech Language Pathology Speech & Swallow Treatment Note [facility] Patient Name: Regine Anguiano : 1955 Today's Date: 04/03/2025 Admit Date: 03/31/2025 Visit Dx: ICD-10-CM ICD-9-CM 1. Oropharyngeal dysphagia R13.12 787.22 Patient Active Problem List Diagnosis Seizure Aspiration pneumonitis -aspiration pneumonitis versus pneumonia Acute hypoxemic respiratory failure -noted from outside hospital where she was intubated. Alcohol dependence with withdrawal delirium -presented with seizures concerning for potential alcohol withdrawal Anemia -uncertain etiology or chronicity Past Medical History: Diagnosis Date Hypertension Past Surgical History: Procedure Laterality Date HYSTERECTOMY HYDRAULIC ENGINEER Recommendation and Plan Recommended discharge disposition is based on the functional assessment performed by PT/OT/Speech therapy (as applicable) and may not reflect the medical necessity determined by your provider or services covered by an individual patient's insurance plan or patient resource. HYDRAULIC ENGINEER Diet Recommendation: nectar thick liquids, ice chips between meals after oral care, with supervision, jacquie (04/03/251421) Recommended Precautions and Strategies: upright posture during/after eating, general aspiration precautions, assist with feeding, no straw, check mouth frequently for oral residue/pocketing () HYDRAULIC ENGINEER Rec. for Method of Medication Administration: meds whole, with puree, as tolerated (04/03/251421) Monitor for Signs of Aspiration: yes, notify HYDRAULIC ENGINEER if any concerns (04/03/251421) Anticipated Discharge Disposition (HYDRAULIC ENGINEER): [facility] facility (04/03/251421) Therapy Frequency (Swallow): 5 days per week (04/03/251421) Predicted Duration Therapy Intervention (Days): 2 weeks (04/03/251421) Oral Care Recommendations: Oral Care BID/PRN, Suction toothbrush (04/03/251421) Daily Summary of Progress (HYDRAULIC ENGINEER): progress towards functional goals is fair (04/03/251421) Treatment Assessment (HYDRAULIC ENGINEER): clinical signs of, aspiration, dysarthria, cognitive-linguistic disorder (04/03/251421) Plan for Continued Treatment (HYDRAULIC ENGINEER): continue treatment per plan of care (04/03/251421) Progress: improving SWALLOW EVALUATION (Last 72 Hours) HYDRAULIC ENGINEER Adult Swallow Evaluation Row Name 04/03/25142104/03/25 0920 04/02/25 1330 04/02/25 1100 04/01/25 1545 Rehab Evaluation Document Type therapy note (daily note) -MM therapy note (daily note) -MM (r) EM (t) MM (c) evaluation -SM (r) LS (t) SM (c) evaluation;re-evaluation -SM (r) LS (t) SM (c) evaluation -RS Subjective Information no complaints -MM no complaints -MM (r) EM (t) MM (c) no complaints -SM (r) LS (t) SM (c) -- no complaints -RS Patient Observations alert;cooperative -MM cooperative;agree to therapy -MM (r) EM (t) MM (c) cooperative;lethargic -SM (r) LS (t) SM (c) -- alert -RS Patient/Family/Caregiver Comments/Observations no family present -MM No family present -MM (r) EM (t) MM (c) -- -- Pt is very confused, in constant motion in bed -RS Patient Effort good -MM good -MM (r) EM (t) MM (c) good -SM (r) LS (t) SM (c) -- fair -RS Symptoms Noted During/After Treatment none -MM none -MM (r) EM (t) MM (c) none - SM (r) LS (t) SM (c) -- none -RS Oral Care -- -- -- -- oral rinse provided -RS General Information Patient Profile Reviewed yes -MM yes -MM (r) EM (t) MM (c) yes -SM (r) LS (t) SM (c) -- yes -RS Pertinent History Of Current Problem -- -- See initial HYDRAULIC ENGINEER eval -SM (r) LS (t) SM (c) -- Pt is a 70yoF w PMHx ETOH abuse who presented to OSH after being found down unresponsive. Pt with witnessed seizure activity and intubated. She was transferred to [facility] for higher level of care. SDH found on MRIper [facility] notes, no indication for surgical intervention. Pt was extubated at approximately 1500 today. 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 -RS Precautions/Limitations, Hearing -- -- hearing impairment, bilaterally -SM (r) LS (t) SM (c) -- hearing impairment, bilaterally;difficult to assess -RS Prior Level of Function-Communication -- -- unknown -SM (r) LS (t) SM (c) -- unknown -RS Prior Level of Function-Swallowing -- -- -- -- unknown;other (see comments) no previous HYDRAULIC ENGINEER hx, pt u/a to indicate -RS Plans/Goals Discussed with -- -- patient -SM (r) LS (t) SM (c) -- patient -RS Pain Pretreatment Pain Rating 0/10 - no pain -MM 0/10 - no pain -MM (r) EM (t) MM (c) 10 -SM (r) LS (t) SM (c) -- -- Posttreatment Pain Rating 0/10 - no pain -MM 0/10 - no pain -MM (r) EM (t) MM (c) 10 -SM (r) LS (t) SM (c) -- -- Pain Location -- -- shoulder -SM (r) LS (t) SM (c) -- -- Pain Side/Orientation -- -- right -SM (r) LS (t) SM (c) -- -- Pain Management Interventions -- -- other (see comments) nursing aware and managing -SM (r) LS (t) SM (c) -- -- Additional Documentation -- -- -- -- Pain Scale: FACES Pre/Post-Treatment (Group) -RS Pain Scale: FACES Pre/Post-Treatment Pain: FACES Scale, Pretreatment -- -- -- -- 2-->hurts little bit -RS Posttreatment Pain Rating -- -- -- -- 2-->hurts little bit -RS Oral Motor Structure and Function Dentition Assessment -- -- -- teeth are in poor condition;missing teeth -SM (r) LS (t) SM (c) teethare in poor condition;missing teeth -RS Secretion Management -- -- -- -- wet vocal quality -RS Mucosal Quality -- -- -- -- sticky -RS Volitional Swallow -- -- -- -- unable to elicit -RS Volitional Cough -- -- -- -- weak;reduced respiratory support -RS Oral Musculature and Cranial Nerve Assessment Oral Motor General Assessment -- -- -- generalized oral motor weakness -SM (r) LS (t) SM (c) generalized oral motor weakness -RS General Eating/Swallowing Observations Respiratory Support Currently in Use -- -- nasal cannula -SM (r) LS (t) SM (c) -- nasal cannula -RS Eating/Swallowing Skills -- -- fed by HYDRAULIC ENGINEER;needed assist -SM (r) LS (t) SM (c) fed by HYDRAULIC ENGINEER -SM (r) LS (t) SM (c) fed by HYDRAULIC ENGINEER;unable to perform self-feeding -RS Positioning During Eating -- -- upright in chair -SM (r) LS (t) SM (c) upright in chair -SM (r) LS(t) SM (c) upright in bed -RS Utensils Used -- -- spoon;straw -SM (r) LS (t) SM (c) spoon;cup -SM (r) LS (t) SM (c) spoon;cup;straw -RS Consistencies Trialed -- -- regular textures;pureed;ice chips;thin liquids;nectar/syrup-thick liquids -SM (r) LS (t) SM (c) pureed;ice chips;thin liquids -SM (r) LS (t) SM (c) thin liquids;ice chips;pureed -RS Respiratory Respiratory Status -- -- -- -- WFL -RS Date of Intubation -- -- -- 03/31-04/01 -SM (r) LS (t) SM (c) 03/31-04/01 -RS Clinical Swallow Eval Oral Prep Phase -- -- -- WFL -SM (r) LS (t) SM (c) impaired -RS Oral Transit -- -- -- impaired -SM (r) LS (t) SM (c) impaired -RS Oral Residue -- -- -- WFL -SM (r) LS (t) SM (c) WFL -RS Pharyngeal Phase -- -- -- suspected pharyngeal impairment -SM (r) LS (t) SM (c) suspected pharyngeal impairment -RS Esophageal Phase -- -- -- unremarkable -SM (r) LS (t) SM (c) unremarkable -RS Oral Prep Concerns Oral Prep Concerns -- -- -- -- incomplete or weak lip closure around spoon -RS Incomplete or Weak Lip Closure Around Spoon -- -- -- -- all consistencies -RS Oral Prep Concerns, Comment -- -- -- -- u/a to achieve closure around straw or pull thins -RS Oral Transit Concerns Oral Transit Concerns -- -- -- delayed initiation of bolus transit -SM (r) LS (t) SM (c) delayed initiation of bolus transit -RS Delayed Intiation of Bolus Transit -- -- -- all consistencies -SM (r) LS (t) SM (c) all consistencies -RS Pharyngeal Phase Concerns Pharyngeal Phase Concerns -- -- -- multiple swallows;wet vocal quality -SM (r) LS (t) SM (c) multiple swallows;wet vocal quality;cough;throat clear -RS Wet Vocal Quality -- -- -- thin -SM (r) LS (t) SM (c) thin;other (see comments) and ice -RS Multiple Swallows -- -- -- thin;other (see comments) ice -SM (r) LS (t) SM (c) thin;other (see comments) and ice -RS Cough -- -- -- -- thin;other (see comments) and ice -RS Throat Clear -- -- -- -- thin;other (see comments) and ice -RS Pharyngeal Phase Concerns, Comment -- -- -- very weak vocal quality, however pt much more alert. HYDRAULIC ENGINEER will assess via FEES. -SM (r) LS (t) SM (c) Voice is essentially aphonic and coupled with mental status, intelligibility is low. Pt may have essential meds in puree, HYDRAULIC ENGINEER will re-assess and determineneed for instrumental prior to PO diet -RS Fiberoptic Endoscopic Evaluation of Swallowing (FEES) Risks/Benefits Reviewed -- -- risks/benefits explained;patient;agreed to eval - SM (r) LS (t) SM (c)-- -- Nasal Entry -- -- left: -SM (r) LS (t) SM (c) -- -- Scope serial number/identification -- -- 338 -SM (r) LS (t) SM (c) -- -- Anatomy and Physiology Anatomic Considerations -- -- no anatomic structural deviation -SM (r) LS (t) SM (c) -- -- Velopharyngeal -- -- WFL -SM (r) LS (t) SM (c) -- -- Base of Tongue -- -- symmetrical -SM (r) LS (t) SM (c) -- -- Epiglottis -- -- WFL -SM (r) LS (t) SM (c) -- -- Laryngeal Function Breathing -- -- symmetrical -SM (r) LS (t) SM (c) -- -- Laryngeal Function Phonation -- -- symmetrical -SM (r) LS (t) SM (c) -- -- Laryngeal Function to Breath Hold -- -- TVF contact;sustained closure -SM (r) LS (t) SM (c) -- -- Secretion Rating Scale (Too et alElgin Mcmillan) -- -- 1- secretions present around the laryngeal vestibule -SM (r) LS (t) SM (c) -- -- Secretion Description -- -- thin;clear -SM (r) LS (t) SM (c) -- -- Sensory -- -- sensed scope -SM (r) LS (t) SM (c) -- -- FEES Interpretation Oral Phase -- -- prolonged manipulation;with solids only -SM (r) LS (t) SM (c) -- -- Initiation of Pharyngeal Swallow Initiation of Pharyngeal Swallow -- -- bolus in valleculae -SM (r) LS (t) SM (c) -- -- Pharyngeal Phase -- -- impaired pharyngeal phase of swallowing -SM (r) LS (t) SM (c) -- -- Penetration During the Swallow -- -- thin liquids;secondary to delayed swallow initiation or mistiming;secondary to reduced laryngeal elevation;secondary to reduced vestibular closure;other (see comments) deep and trace penetration w/ consecutive sips. -SM (r) LS (t) SM (c) -- -- Aspiration After the Swallow -- -- thin liquids;secondary to residue;in laryngeal vestibule;other (see comments) Following penetration, residue mixed with saliva and dropped just below the vocal folds. -SM (r) LS (t) SM (c) -- -- Depth of Penetration -- -- deep trace -SM (r) LS (t) SM (c) -- -- Response to Penetration -- -- Yes -SM (r) LS (t) SM (c) -- -- Responsed to penetration with -- -- inconsistent;throat clear;cough -SM (r) LS (t) SM (c) -- -- Response to Aspiration -- -- Yes -SM (r) LS (t) SM (c) -- -- Responsed to aspiration with -- -- inconsistent;throat clear;cough -SM (r) LS (t) SM (c) -- -- Rosenbek's Scale -- -- thin:;6-->Level 6 w/ consecutive sips -SM (r) LS (t) SM (c) -- -- Residue -- -- thin liquids;laryngeal vestibule;secondary to reduced base of tongue retraction;secondary to reduced laryngeal elevation;secondary to reduced hyolaryngeal excursion -SM (r) LS (t) SM (c) -- -- Response to Residue -- -- unable to clear residue -SM (r) LS (t) SM (c) -- -- Attempted Compensatory Maneuvers -- -- bolus size;bolus presentation style;throat clear after swallow -SM (r) LS (t) SM (c) -- -- Response to Attempted Compensatory Maneuvers -- -- prevented penetration;prevented aspiration;reduced residue -SM (r) LS (t) SM (c) -- -- Pharyngeal Phase, Comment -- -- Although residue was cleared and liquid aspirated was ejected out of the airway, pt is lethargic. This contributes to the risk of aspiration and pt will unlikely be able to follow compensatory strategies. -SM (r) LS (t) SM (c) -- -- Swallowing Quality of Life Assessment Education and counseling provided -- -- Signs of aspiration;Silent aspiration - SM (r) LS (t) SM (c)-- Signs of aspiration;Silent aspiration -RS HYDRAULIC ENGINEER Evaluation Clinical Impression HYDRAULIC ENGINEER Swallowing Diagnosis -- -- oral dysphagia;mild-moderate;pharyngeal dysphagia -SM (r) LS (t) SM (c) oral dysphagia;R/O pharyngeal dysphagia -SM (r) LS (t) SM (c) oral dysphagia;R/O pharyngeal dysphagia -RS Functional Impact -- -- risk of aspiration/pneumonia -SM (r) LS (t) SM (c) risk of aspiration/pneumonia -SM (r) LS (t) SM (c) risk of aspiration/pneumonia -RS Rehab Potential/Prognosis, Swallowing -- -- adequate, monitor progress closely - SM (r) LS (t) SM (c) adequate, monitor progress closely -SM (r) LS (t) SM (c) adequate, monitor progress closely -RS Swallow Criteria for Skilled Therapeutic Interventions Met -- -- demonstrates skilled criteria -SM (r) LS (t) SM (c) demonstrates skilled criteria -SM (r) LS (t) SM (c) demonstrates skilled criteria -RS HYDRAULIC ENGINEER Treatment Clinical Impressions Treatment Assessment (HYDRAULIC ENGINEER) clinical signs of;aspiration;dysarthria;cognitive- linguistic disorder -MM continued;toleration of diet;oral dysphagia;mild- moderate;pharyngeal dysphagia -MM (r) EM (t) MM (c) -- -- -- Daily Summary of Progress (HYDRAULIC ENGINEER) progress towards functional goals is fair -MM progress toward functional goals as expected -MM (r) EM (t) MM (c) -- -- -- Barriers to Overall Progress (HYDRAULIC ENGINEER) Cognitive status -MM Cognitive status -MM (r) EM (t) MM (c) -- -- -- Plan for Continued Treatment (HYDRAULIC ENGINEER) continue treatment per plan of care -MM continue treatment per plan of care -MM (r) EM (t) MM (c) -- -- -- Care Plan Review care plan/treatment goals reviewed;risks/benefits reviewed;current/potential barriers reviewed;patient/other agree to care plan - MM care plan/treatment goals reviewed;risks/benefits reviewed;patient/other agree to care plan -MM (r) EM (t) MM (c) -- -- -- Recommendations Therapy Frequency (Swallow) 5 days per week -MM 5 days per week -MM (r) EM (t) MM (c) 5 days per week -SM (r) LS (t) SM (c) -- -- Predicted Duration Therapy Intervention (Days) 2 weeks -MM 2 weeks -MM (r) EM (t) MM (c) 2 weeks -SM (r) LS (t) SM (c) -- -- HYDRAULIC ENGINEER Diet Recommendation nectar thick liquids;ice chips between meals after oral care, with supervision;puree -MM mechanical ground textures;nectar thick liquids;ice chips between meals after oral care, with supervision -MM (r) EM (t) MM (c) mechanical ground textures;nectar thick liquids;ice chips between meals after oral care, with supervision -SM (r) LS (t) SM (c) NPO -SM (r) LS (t) SM (c) NPO -RS Recommended Diagnostics -- -- -- FEES -SM (r) LS (t) SM (c) reassess via clinical swallow evaluation -RS Recommended Precautions and Strategies upright posture during/after eating;general aspiration precautions;assist with feeding;no straw;check mouth frequently for oral residue/pocketing -MM upright posture during/after eating;general aspiration precautions;assist with feeding -MM (r) EM (t) MM (c) upright posture during/after eating;general aspiration precautions;assist with feeding -SM (r) LS (t)SM (c) upright posture during/after eating;general aspiration precautions -SM (r) LS (t) SM (c) upright posture during/after eating;general aspiration precautions -RS Oral Care Recommendations Oral Care BID/PRN;Suction toothbrush -MM Oral Care BID/PRN;Suction toothbrush -MM (r) EM (t) MM (c) Oral Care BID/PRN;Suction toothbrush -SM (r) LS (t) SM (c) Oral Care BID/PRN;Suction toothbrush -SM (r) LS (t) SM (c) Oral Care BID/PRN;Suction toothbrush -RS HYDRAULIC ENGINEER Rec. for Method of Medication Administration meds whole;with puree;as tolerated -MM meds whole;with puree;as tolerated -MM (r) EM (t) MM (c) meds whole;with puree;as tolerated -SM (r) LS (t) SM (c) meds whole;with puree;as tolerated -SM (r) LS (t) SM (c) meds whole;with puree essential meds only -RS Monitor for Signs of Aspiration yes;notify HYDRAULIC ENGINEER if any concerns -MM yes;notify HYDRAULIC ENGINEER if any concerns -MM (r) EM (t) MM (c) yes;notify HYDRAULIC ENGINEER if any concerns -SM (r) LS (t) SM (c) yes;notify HYDRAULIC ENGINEER if any concerns -SM (r) LS (t) SM (c) yes;notify HYDRAULIC ENGINEER if any concerns -RS Anticipated Discharge Disposition (HYDRAULIC ENGINEER) [facility] facility -MM [facility] -MM (r) EM (t) MM (c) [facility] -SM (r) LS (t) SM (c) [facility] -SM (r) LS (t) SM (c) [facility] -RS Demonstrates Need for Referral to Another Service -- -- speech therapy -SM (r) LS (t) SM (c) speechtherapy -SM (r) LS (t) SM (c) speech therapy;other (see comments) Pt would benefit from full [facility]LC eval -RS User [place] (r) = Recorded By, (t) = Taken By, (c) = Cosigned By Initials Name Effective Dates Denice Regan, MS [facility]-HYDRAULIC ENGINEER 07/02/24 - RS Abimael Ley, MS [facility]-HYDRAULIC ENGINEER 02/24/23 - MM Virginie Jacinto, MS [facility]-HYDRAULIC ENGINEER 02/10/24 - EM Susannah Strickland, Speech Therapy Student 01/25/25 - LS Yumi Singh, Speech Therapy Student 01/29/25 - EDUCATION The patient has been educated in the following areas: Cognitive Impairment Dysphagia (Swallowing Impairment). HYDRAULIC ENGINEER GOALS Row Name 04/03/25 1422 04/03/25 0920 04/02/25 1400 (LTG) Patient will demonstrate functional swallow for Diet Texture (Demonstrate functional swallow) regular textures -MM regular textures -MM (r) EM (t) MM (c) -- -SM (r) LS (t) SM (c) Liquid viscosity (Demonstrate functional swallow) thin liquids -MM thin liquids -MM (r) EM (t) MM (c) -- -SM (r) LS (t) SM (c) [place] (Demonstrate functional swallow) with minimal cues (75-90% accuracy) -MM with minimal cues (75-90% accuracy) -MM (r) EM (t) MM (c) -- -SM (r) LS (t) SM (c) Time Frame (Demonstrate functional swallow) 2 weeks -MM 2 weeks -MM (r) EM (t) MM (c) -- -SM (r) LS(t) SM (c) Barriers (Demonstrate functional swallow) Lethargy -MM Lethargy -MM (r) EM (t) MM (c) -- -SM (r) LS(t) SM (c) Progress/Outcomes (Demonstrate functional swallow) goal ongoing -MM goal ongoing -MM (r) EM (t) MM (c) -- -SM (r) LS (t) SM (c) Comment (Demonstrate functional swallow) -- -- -MM (r) EM (t) MM (c) -- (STG) Patient will tolerate trials of Consistencies Trialed (Tolerate trials) soft to chew (ground) textures;nectar/ mildly thick liquids-MM soft to chew (ground) textures;nectar/ mildly thick liquids -MM (r) EM (t) MM (c) -- -SM (r) LS(t) SM (c) Desired Outcome (Tolerate trials) without signs/symptoms of aspiration;with adequate oral prep/transit/clearance -MM without signs/symptoms of aspiration;with adequate oral prep/transit/clearance -MM(r) EM (t) MM (c) -- -SM (r) LS (t) SM (c) [place] (Tolerate trials) with moderate cues (50-74% accuracy) -MM with moderate cues (50-74% accuracy) -MM (r) EM (t) MM (c) -- -SM (r) LS (t) SM (c) Time Frame (Tolerate trials) 1 week -MM 1 week -MM (r) EM (t) MM (c) -- -SM (r) LS (t) SM (c) Progress/Outcomes (Tolerate trials) continuing progress toward goal -MM continuing progress toward goal -MM (r) EM (t) MM (c) -- -SM (r) LS (t) SM (c) Comment (Tolerate trials) Pt demonstrated cough following trials of nectar thick liquids via straw;no overt s/sx w/ trials via cup sip. PCT reported pt pocketing mechanical ground consistency with lunch; no pocketing observed w/ puree and meds whole in puree. -MM Pt tolerated trials of mechanical ground food items (sausage gravy, eggs, and oatmeal) with prolonged masitcation and anterior loss. Pt tolerated trials of nectar thick liquids (coffee, orange juice, and water) with occasional coughing via straw. -MM (r) EM (t) MM (c) -- (STG) Lingual Strengthening Goal 1 (HYDRAULIC ENGINEER) Activity (Lingual Strengthening Goal 1, HYDRAULIC ENGINEER) increase lingual tone/sensation/control/coordination/movement;increase tongue back strength -MM increase lingual tone/sensation/control/coordination/movement;increase tongue back strength -MM (r) EM (t) MM (c) -- -SM (r) LS (t) SM (c) Increase Lingual Tone/Sensation/Control/Coordination/Movement lingual resistance exercises -MM lingual resistance exercises -MM (r) EM (t) MM (c) -- -SM (r) LS (t) SM (c) Increase Tongue Back Strength lingual resistance exercises -MM lingual resistance exercises -MM (r)EM (t) MM (c) -- -SM (r) LS (t) SM (c) [place]/Accuracy (Lingual Strengthening Goal 1, HYDRAULIC ENGINEER) with moderate cues (50-74% accuracy) -MM with moderate cues (50-74% accuracy) -MM (r) EM (t) MM (c) -- -SM (r) LS (t) SM (c) Time Frame (Lingual Strengthening Goal 1, HYDRAULIC ENGINEER) 1 week -MM 1 week -MM (r) EM (t) MM (c) -- -SM (r) LS (t) SM (c) Progress/Outcomes (Lingual Strengthening Goal 1, HYDRAULIC ENGINEER) goal ongoing -MM goal ongoing -MM (r) EM (t) MM (c) -- -SM (r) LS (t) SM (c) Comment (Lingual Strengthening Goal 1, HYDRAULIC ENGINEER) -- Pt unable to follow directions. - MM (r) EM (t) MM (c) -- (STG) Pharyngeal Strengthening Exercise Goal 1 (HYDRAULIC ENGINEER) Activity (Pharyngeal Strengthening Goal 1, [facility]) increase superior movement of the hyolaryngeal complex;increase anterior movement of the hyolaryngeal complex;increase closure at entrance to airway/closure of airway at glottis;increase squeeze/positive pressure generation -MM increase superior movement of the hyolaryngeal complex;increase anterior movement of the hyolaryngeal complex;increase closure at entrance to airway/closure of airway at glottis;increase squeeze/positive pressure generation-MM (r) EM (t) MM (c) -- - SM (r) LS (t) SM (c) Increase Superior Movement of the Hyolaryngeal Complex Aye -MM Aye -MM (r) EM (t) MM (c) -- -SM (r) LS (t) SM (c) Increase Anterior Movement of the Hyolaryngeal Complex chin tuck against resistance (CTAR) -MM chintuck against resistance (CTAR) -MM (r) EM (t) MM (c) -- -SM (r) LS (t) SM (c) Increase Closure at Entrance to Airway/Closure of Airway at Glottis supraglottic swallow -MM supraglottic swallow -MM (r) EM (t) MM (c) -- -SM (r) LS (t) SM (c) Increase Squeeze/Positive Pressure Generation hard effortful swallow -MM hard effortful swallow -MM(r) EM (t) MM (c) -- -SM (r) LS (t) SM (c) [place]/Accuracy (Pharyngeal Strengthening Goal 1, HYDRAULIC ENGINEER) with moderate cues (50-74% accuracy) -MM with moderate cues (50-74% accuracy) -MM (r) EM (t) MM (c) -- -SM (r) LS (t) SM (c) Time Frame (Pharyngeal Strengthening Goal 1, HYDRAULIC ENGINEER) 1 week -MM 1 week -MM (r) EM (t) MM (c) -- -SM (r) LS (t) SM (c) Progress/Outcomes (Pharyngeal Strengthening Goal 1, HYDRAULIC ENGINEER) goal ongoing -MM goal ongoing -MM (r) EM (t) MM (c) -- -SM (r) LS (t) SM (c) Comment (Pharyngeal Strengthening Goal 1, HYDRAULIC ENGINEER) -- Pt unable to follow directions. -MM (r) EM (t) MM(c) -- Patient will demonstrate functional communication skills for return to discharge environment [place] Independently -MM Independently -MM (r) EM (t) MM (c) -- -SM (r) LS (t) SM (c) Time frame 2 weeks -MM 2 weeks -MM (r) EM (t) MM (c) -- -SM (r) LS (t) SM (c) Progress/Outcomes goal ongoing -MM goal ongoing -MM (r) EM (t) MM (c) -- -SM (r) LS (t) SM (c) HYDRAULIC ENGINEER Diagnostic Treatment Patient will participate in further assessment in the following areas motor speech;higher-level cognitive-linguistic;clarification of baseline cognitive communication status -MM motor speech;higher-level cognitive- linguistic;clarification of baseline cognitive communication status -MM (r) EM (t) MM(c) -- -SM (r) LS (t) SM (c) Time Frame (Diagnostic) 1 week -MM 1 week -MM (r) EM (t) MM (c) -- -SM (r) LS (t) SM (c) Progress/Outcomes (Additional Goal 1, HYDRAULIC ENGINEER) good progress toward goal -MM progress slower than expected -MM (r) EM (t) MM (c) -- -SM (r) LS (t) SM (c) Comment (Diagnostic) Pt more awake and alert at this time as opposed to in the am. Pt presents withmild dysarthria c/b reduced rate of speech and volume. Pt presents with mild memory and problem solving deficits. Pt was able to repeat number lists of 4 numbers and short phrases for immediate memory; moderate deficits w/ problem solving. -MM HYDRAULIC ENGINEER attempted to call pt's spouse to discuss baseline function, however, he did not answer the phone call. RN reported contact w/ spouse has been attemptedmultiple times with no response throughout length of hospitalization. Higher level cognitive linguistic evaluation not indicated at this time due to unknown baseline and difficulty following commands. -MM (r) EM (t) MM (c) -- Memory Skills Goal 1 (HYDRAULIC ENGINEER) Improve Memory Skills Through Goal 1 (HYDRAULIC ENGINEER) listen to a paragraph and answer questions;80%;with minimal cues (75-90%) -MM -- -- Time Frame (Memory Skills Goal 1, HYDRAULIC ENGINEER) 1 week -MM -- -- Progress/Outcomes (Memory Skills Goal 1, HYDRAULIC ENGINEER) new goal -MM -- -- Functional Problem Solving Skills Goal 1 (HYDRAULIC ENGINEER) Improve Problem Solving Through Goal 1 (HYDRAULIC ENGINEER) answer questions about ADL problems;determine solutions to simple ADL/safety problems;determine solutions to complex problems;80%;with minimal cues (75-90%) -MM -- -- Time Frame (Problem Solving Goal 1, HYDRAULIC ENGINEER) 1 week -MM -- -- Progress/Outcomes (Problem Solving Goal 1, HYDRAULIC ENGINEER) new goal -MM -- -- Row Name 04/02/25 1330 04/02/25 1100 (LTG) Patient will demonstrate functional swallow for Diet Texture (Demonstrate functional swallow) regular textures -SM (r) LS (t) SM (c) -- Liquid viscosity (Demonstrate functional swallow) thin liquids -SM (r) LS (t) SM (c) -- [place] (Demonstrate functional swallow) with minimal cues (75-90% accuracy) -SM (r) LS (t) SM(c) -- Time Frame (Demonstrate functional swallow) 2 weeks -SM (r) LS (t) SM (c) -- Barriers (Demonstrate functional swallow) Lethargy -SM (r) LS (t) SM (c) -- Progress/Outcomes (Demonstrate functional swallow) new goal -SM (r) LS (t) SM (c) -- (STG) Patient will tolerate trials of Consistencies Trialed (Tolerate trials) soft to chew (ground) textures;nectar/ mildly thick liquids-SM (r) LS (t) SM (c) -- Desired Outcome (Tolerate trials) without signs/symptoms of aspiration;with adequate oral prep/transit/clearance -SM (r) LS (t) SM (c) -- [place] (Tolerate trials) with moderate cues (50-74% accuracy) -SM (r) LS (t) SM (c) -- Time Frame (Tolerate trials) 1 week -SM (r) LS (t) SM (c) -- Progress/Outcomes (Tolerate trials) new goal -SM (r) LS (t) SM (c) -- (STG) Lingual Strengthening Goal 1 (HYDRAULIC ENGINEER) Activity (Lingual Strengthening Goal 1, HYDRAULIC ENGINEER) increase lingual tone/sensation/control/coordination/movement;increase tongue back strength -SM (r) LS (t) SM (c) -- Increase Lingual Tone/Sensation/Control/Coordination/Movement lingual resistance exercises -SM (r) LS (t) SM (c) -- Increase Tongue Back Strength lingual resistance exercises -SM (r) LS (t) SM (c) -- [place]/Accuracy (Lingual Strengthening Goal 1, HYDRAULIC ENGINEER) with moderate cues (50-74% accuracy) -SM (r) LS (t) SM (c) -- Time Frame (Lingual Strengthening Goal 1, HYDRAULIC ENGINEER) 1 week -SM (r) LS (t) SM (c) -- Progress/Outcomes (Lingual Strengthening Goal 1, HYDRAULIC ENGINEER) new goal -SM (r) LS (t) SM (c) -- (STG) Pharyngeal Strengthening Exercise Goal 1 (HYDRAULIC ENGINEER) Activity (Pharyngeal Strengthening Goal 1, HYDRAULIC ENGINEER) increase superior movement of the hyolaryngeal complex;increase anterior movement of the hyolaryngeal complex;increase closure at entrance to airway/closure of airway at glottis;increase squeeze/positive pressure generation -SM (r) LS (t) SM (c) -- Increase Superior Movement of the Hyolaryngeal Complex [place] -SM (r) LS (t) SM (c) -- Increase Anterior Movement of the Hyolaryngeal Complex chin tuck against resistance (CTAR) -SM (r) LS (t) SM (c) -- Increase Closure at Entrance to Airway/Closure of Airway at Glottis supraglottic swallow -SM (r) LS(t) SM (c) -- Increase Squeeze/Positive Pressure Generation hard effortful swallow -SM (r) LS (t) SM (c) -- [place]/Accuracy (Pharyngeal Strengthening Goal 1, HYDRAULIC ENGINEER) with moderate cues (50-74% accuracy) -SM (r) LS (t) SM (c) -- Time Frame (Pharyngeal Strengthening Goal 1, HYDRAULIC ENGINEER) 1 week -SM (r) LS (t) SM (c) -- Progress/Outcomes (Pharyngeal Strengthening Goal 1, HYDRAULIC ENGINEER) new goal -SM (r) LS (t) SM (c) -- Patient will demonstrate functional communication skills for return to discharge environment [place] Independently -SM (r) LS (t) SM (c) Independently -SM (r) LS (t) SM (c) Time frame 2 weeks -SM (r) LS (t) SM (c) 2 weeks -SM (r) LS (t) SM (c) Progress/Outcomes goal ongoing -SM (r) LS (t) SM (c) new goal -SM (r) LS (t) SM (c) HYDRAULIC ENGINEER Diagnostic Treatment Patient will participate in further assessment in the following areas motor speech;higher-level cognitive-linguistic;clarification of baseline cognitive communication status -SM (r) LS (t) SM (c) motor speech;higher-level cognitive- linguistic;clarification of baseline cognitive communication status-SM (r) LS (t) SM (c) Time Frame (Diagnostic) 1 week -SM (r) LS (t) SM (c) 1 week -SM (r) LS (t) SM (c) Progress/Outcomes (Additional Goal 1, HYDRAULIC ENGINEER) goal ongoing -SM (r) LS (t) SM (c) new goal -SM (r) LS (t) SM (c) User [place] (r) = Recorded By, (t) = Taken By, (c) = Cosigned By Initials Name Provider Type SM Moynahan, Denice M, MS CCC-HYDRAULIC ENGINEER Speech and Language Pathologist Virginie Cruz, CCC-HYDRAULIC ENGINEER Speech and Language Pathologist Susannah Henderson, Speech Therapy Student HYDRAULIC ENGINEER Student Yumi Oleary, Speech Therapy Student HYDRAULIC ENGINEER Student Time Calculation: Time Calculation- HYDRAULIC ENGINEER Row Name 04/03/25 1554 04/03/25 1211 Time Calculation- HYDRAULIC ENGINEER HYDRAULIC ENGINEER Start Time 1422 -MM 0920 -MM (r) EM (t) MM (c) HYDRAULIC ENGINEER Received On 04/03/25 -MM 04/03/25 -MM (r) EM (t) MM (c) Untimed Charges 12232-GR Treatment/ST Modification Prosth Aug Alter 24 -MM -- 38535-FI Treatment Swallow Minutes 11 -MM 68 -MM (r) EM (t) MM (c) Total Minutes Untimed Charges Total Minutes 35 -MM 68 -MM (r) EM (t) Total Minutes 35 -MM 68 -MM (r) EM (t) User [place] (r) = Recorded By, (t) = Taken By, (c) = Cosigned By Initials Name Provider Type Virginie Cruz, CCC-HYDRAULIC ENGINEER Speech and Language Pathologist Susannah Henderson, Speech Therapy Student HYDRAULIC ENGINEER Student Therapy Charges for Today Code Description Service Date Service Provider Modifiers Qty [id number] HC ST TREATMENT SWALLOW 1 04/03/2025 Virginie Jacinto MS CCC-HYDRAULIC ENGINEER GN [id number] TREATMENT SPEECH 2 04/03/2025 Virginie Jacinto MS CCC-HYDRAULIC ENGINEER GN 1 Virginie Jacinto MS CCC-KAREN 04/03/2025 * Therapy Treatment Note - Susannah Strickland Speech Therapy Student - 04/03/2025 9:20 AM EDT Images from the original note were not included. Acute Care - Speech Language Pathology Swallow Treatment Note Effie Patient Name: Regine Anguiano : 1955 Today's Date: 04/03/2025 Admit Date: 03/31/2025 Visit Dx: ICD-10-CM ICD-9-CM 1. Oropharyngeal dysphagia R13.12 787.22 Patient Active Problem List Diagnosis Seizure Aspiration pneumonitis -aspiration pneumonitis versus pneumonia Acute hypoxemic respiratory failure -noted from outside hospital where she was intubated. Alcohol dependence with withdrawal delirium -presented with seizures concerning for potential alcohol withdrawal Anemia -uncertain etiology or chronicity Past Medical History: Diagnosis Date Hypertension Past Surgical History: Procedure Laterality Date HYSTERECTOMY HYDRAULIC ENGINEER Recommendation and Plan Recommended discharge disposition is based on the functional assessment performed by PT/OT/Speech therapy (as applicable) and may not reflect the medical necessity determined by your provider or services covered by an individual patient's insurance plan or patient resource. HYDRAULIC ENGINEER Diet Recommendation: (P) mechanical ground textures, nectar thick liquids, ice chips between meals after oral care, with supervision (04/03/25919) Recommended Precautions and Strategies: (P) upright posture during/after eating, general aspirationprecautions, assist with feeding (04/03/25919) HYDRAULIC ENGINEER Rec. for Method of Medication Administration: (P) meds whole, with puree, as tolerated (04/03/25919) Monitor for Signs of Aspiration: (P) yes, notify HYDRAULIC ENGINEER if any concerns (04/03/25919) Anticipated Discharge Disposition (HYDRAULIC ENGINEER): (P) [facility] facility (04/03/25919) Therapy Frequency (Swallow): (P) 5 days per week (04/03/25919) Predicted Duration Therapy Intervention (Days): (P) 2 weeks (04/03/25919) Oral Care Recommendations: (P) Oral Care BID/PRN, Suction toothbrush (04/03/25919) Daily Summary of Progress (HYDRAULIC ENGINEER): (P) progress toward functional goals as expected (04/03/25919) Treatment Assessment (HYDRAULIC ENGINEER): (P) continued, toleration of diet, oral dysphagia, mild-moderate, pharyngeal dysphagia (04/03/25919) Plan for Continued Treatment (HYDRAULIC ENGINEER): (P) continue treatment per plan of care (04/03/25919) Progress: (P) improving SWALLOW EVALUATION (Last 72 Hours) HYDRAULIC ENGINEER Adult Swallow Evaluation Row Name 04/03/2591904/02/25 1330 04/02/25 1100 04/01/25 1540 Rehab Evaluation Document Type therapy note (daily note) (P) -EM evaluation -SM (r) LS (t) SM (c) evaluation;re-evaluation -SM (r) LS (t) SM (c) evaluation -RS Subjective Information no complaints (P) -EM no complaints -SM (r) LS (t) SM (c) -- no complaints -RS Patient Observations cooperative;agree to therapy (P) -EM cooperative;lethargic -SM (r) LS (t) SM (c) -- alert -RS Patient/Family/Caregiver Comments/Observations No family present (P) -EM -- -- Pt is very confused,in constant motion in bed -RS Patient Effort good (P) -EM good -SM (r) LS (t) SM (c) -- fair -RS Symptoms Noted During/After Treatment none (P) -EM none -SM (r) LS (t) SM (c) -- none -RS Oral Care -- -- -- oral rinse provided -RS General Information Patient Profile Reviewed yes (P) -EM yes -SM (r) LS (t) SM (c) -- yes -RS Pertinent History Of Current Problem -- See initial HYDRAULIC ENGINEER eval -SM (r) LS (t) SM (c) -- Pt is a 70 yoF w PMHx ETOH abuse who presented to OSH after being found down unresponsive. Pt with witnessed seizure activity and intubated. She was transferred to [facility] for higher level of care. SDH found on MRI per [facility] notes, no indication for surgical intervention. Pt was extubated at approximately 1500 today. 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 -RS Precautions/Limitations, Hearing -- hearing impairment, bilaterally -SM (r) LS (t) SM (c) -- hearing impairment, bilaterally;difficult to assess -RS Prior Level of Function-Communication -- unknown -SM (r) LS (t) SM (c) -- unknown -RS Prior Level of Function-Swallowing -- -- -- unknown;other (see comments) no previous HYDRAULIC ENGINEER hx, pt u/eliseo indicate -RS Plans/Goals Discussed with -- patient -SM (r) LS (t) SM (c) -- patient -RS Pain Pretreatment Pain Rating 0/10 - no pain (P) -EM 6/10 -SM (r) LS (t) SM (c) -- -- Posttreatment Pain Rating 0/10 - no pain (P) -EM 6/10 -SM (r) LS (t) SM (c) -- -- Pain Location -- shoulder -SM (r) LS (t) SM (c) -- -- Pain Side/Orientation -- right -SM (r) LS (t) SM (c) -- -- Pain Management Interventions -- other (see comments) nursing aware and managing -SM (r) LS (t) SM (c) -- -- Additional Documentation -- -- -- Pain Scale: FACES Pre/Post-Treatment (Group) -RS Pain Scale: FACES Pre/Post-Treatment Pain: FACES Scale, Pretreatment -- -- -- 2-->hurts little bit -RS Posttreatment Pain Rating -- -- -- 2-->hurts little bit -RS Oral Motor Structure and Function Dentition Assessment -- -- teeth are in poor condition;missing teeth -SM (r) LS (t) SM (c) teeth are in poor condition;missing teeth -RS Secretion Management -- -- -- wet vocal quality -RS Mucosal Quality -- -- -- sticky -RS Volitional Swallow -- -- -- unable to elicit -RS Volitional Cough -- -- -- weak;reduced respiratory support -RS Oral Musculature and Cranial Nerve Assessment Oral Motor General Assessment -- -- generalized oral motor weakness -SM (r) LS (t) SM (c) generalized oral motor weakness -RS General Eating/Swallowing Observations Respiratory Support Currently in Use -- nasal cannula -SM (r) LS (t) SM (c) -- nasal cannula -RS Eating/Swallowing Skills -- fed by HYDRAULIC ENGINEER;needed assist -SM (r) LS (t) SM (c) fed by HYDRAULIC ENGINEER -SM (r) LS (t) SM (c) fed by HYDRAULIC ENGINEER;unable to perform self-feeding -RS Positioning During Eating -- upright in chair -SM (r) LS (t) SM (c) upright in chair -SM (r) LS (t)SM (c) upright in bed -RS Utensils Used -- spoon;straw -SM (r) LS (t) SM (c) spoon;cup -SM (r) LS (t) SM (c) spoon;cup;straw -RS Consistencies Trialed -- regular textures;pureed;ice chips;thin liquids;nectar/syrup-thick liquids -SM (r) LS (t) SM (c) pureed;ice chips;thin liquids -SM (r) LS (t) SM (c) thin liquids;ice chips;pureed -RS Respiratory Respiratory Status -- -- -- WFL -RS Date of Intubation -- -- 03/31-04/01 -SM (r) LS (t) SM (c) 03/31-04/01 -RS Clinical Swallow Eval Oral Prep Phase -- -- WFL -SM (r) LS (t) SM (c) impaired -RS Oral Transit -- -- impaired -SM (r) LS (t) SM (c) impaired -RS Oral Residue -- -- WFL -SM (r) LS (t) SM (c) WFL -RS Pharyngeal Phase -- -- suspected pharyngeal impairment -SM (r) LS (t) SM (c) suspected pharyngeal impairment -RS Esophageal Phase -- -- unremarkable -SM (r) LS (t) SM (c) unremarkable -RS Oral Prep Concerns Oral Prep Concerns -- -- -- incomplete or weak lip closure around spoon -RS Incomplete or Weak Lip Closure Around Spoon -- -- -- all consistencies -RS Oral Prep Concerns, Comment -- -- -- u/a to achieve closure around straw or pull thins -RS Oral Transit Concerns Oral Transit Concerns -- -- delayed initiation of bolus transit -SM (r) LS (t) SM (c) delayed initiation of bolus transit -RS Delayed Intiation of Bolus Transit -- -- all consistencies -SM (r) LS (t) SM (c) all consistencies -RS Pharyngeal Phase Concerns Pharyngeal Phase Concerns -- -- multiple swallows;wet vocal quality -SM (r) LS (t) SM (c) multiple swallows;wet vocal quality;cough;throat clear -RS Wet Vocal Quality -- -- thin -SM (r) LS (t) SM (c) thin;other (see comments) and ice -RS Multiple Swallows -- -- thin;other (see comments) ice -SM (r) LS (t) SM (c) thin;other (see comments) and ice -RS Cough -- -- -- thin;other (see comments) and ice -RS Throat Clear -- -- -- thin;other (see comments) and ice -RS Pharyngeal Phase Concerns, Comment -- -- very weak vocal quality, however pt much more alert. HYDRAULIC ENGINEER will assess via FEES. -SM (r) LS (t) SM (c) Voice is essentially aphonic and coupled with mental status, intelligibility is low. Pt may have essential meds in puree, HYDRAULIC ENGINEER will re-assess and determine need for instrumental prior to PO diet -RS Fiberoptic Endoscopic Evaluation of Swallowing (FEES) Risks/Benefits Reviewed -- risks/benefits explained;patient;agreed to eval -SM (r) LS (t) SM (c) ---- Nasal Entry -- left: -SM (r) LS (t) SM (c) -- -- Scope serial number/identification -- 338 -SM (r) LS (t) SM (c) -- -- Anatomy and Physiology Anatomic Considerations -- no anatomic structural deviation -SM (r) LS (t) SM (c) -- -- Velopharyngeal -- WFL -SM (r) LS (t) SM (c) -- -- Base of Tongue -- symmetrical -SM (r) LS (t) SM (c) -- -- Epiglottis -- WFL -SM (r) LS (t) SM (c) -- -- Laryngeal Function Breathing -- symmetrical -SM (r) LS (t) SM (c) -- -- Laryngeal Function Phonation -- symmetrical -SM (r) LS (t) SM (c) -- -- Laryngeal Function to Breath Hold -- TVF contact;sustained closure -SM (r) LS (t) SM (c) -- -- Secretion Rating Scale (Too et al. 1995) -- 1- secretions present around the laryngeal vestibule-SM (r) LS (t) SM (c) -- -- Secretion Description -- thin;clear -SM (r) LS (t) SM (c) -- -- Sensory -- sensed scope -SM (r) LS (t) SM (c) -- -- FEES Interpretation Oral Phase -- prolonged manipulation;with solids only -SM (r) LS (t) SM (c) -- -- Initiation of Pharyngeal Swallow Initiation of Pharyngeal Swallow -- bolus in valleculae -SM (r) LS (t) SM (c) -- -- Pharyngeal Phase -- impaired pharyngeal phase of swallowing -SM (r) LS (t) SM (c) -- -- Penetration During the Swallow -- thin liquids;secondary to delayed swallow initiation or mistiming;secondary to reduced laryngeal elevation;secondary to reduced vestibular closure;other (see comments) deep and trace penetration w/ consecutive sips. -SM (r) LS (t) SM (c) -- -- Aspiration After the Swallow -- thin liquids;secondary to residue;in laryngeal vestibule;other (seecomments) Following penetration, residue mixed with saliva and dropped just below the vocal folds. -SM (r) LS (t) SM (c) -- -- Depth of Penetration -- deep trace -SM (r) LS (t) SM (c) -- -- Response to Penetration -- Yes -SM (r) LS (t) SM (c) -- -- Responsed to penetration with -- inconsistent;throat clear;cough -SM (r) LS (t) SM (c) -- -- Response to Aspiration -- Yes -SM (r) LS (t) SM (c) -- -- Responsed to aspiration with -- inconsistent;throat clear;cough -SM (r) LS (t) SM (c) -- -- Rosenbek's Scale -- thin:;6-->Level 6 w/ consecutive sips -SM (r) LS (t) SM (c) -- -- Residue -- thin liquids;laryngeal vestibule;secondary to reduced base of tongue retraction;secondary to reduced laryngeal elevation;secondary to reduced hyolaryngeal excursion -SM (r) LS (t) SM (c) -- -- Response to Residue -- unable to clear residue -SM (r) LS (t) SM (c) -- -- Attempted Compensatory Maneuvers -- bolus size;bolus presentation style;throat clear after swallow -SM (r) LS (t) SM (c) -- -- Response to Attempted Compensatory Maneuvers -- prevented penetration;prevented aspiration;reduced residue -SM (r) LS (t) SM (c) -- -- Pharyngeal Phase, Comment -- Although residue was cleared and liquid aspirated was ejected out of the airway, pt is lethargic. This contributes to the risk of aspiration and pt will unlikely be able to follow compensatory strategies. -SM (r) LS (t) SM (c) -- -- Swallowing Quality of Life Assessment Education and counseling provided -- Signs of aspiration;Silent aspiration -SM (r) LS (t) SM (c) --Signs of aspiration;Silent aspiration -RS HYDRAULIC ENGINEER Evaluation Clinical Impression HYDRAULIC ENGINEER Swallowing Diagnosis -- oral dysphagia;mild-moderate;pharyngeal dysphagia - SM (r) LS (t) SM (c)oral dysphagia;R/O pharyngeal dysphagia -SM (r) LS (t) SM (c) oral dysphagia;R/O pharyngeal dysphagia -RS Functional Impact -- risk of aspiration/pneumonia -SM (r) LS (t) SM (c) risk of aspiration/pneumonia -SM (r) LS (t) SM (c) risk of aspiration/pneumonia -RS Rehab Potential/Prognosis, Swallowing -- adequate, monitor progress closely -SM (r) LS (t) SM (c) adequate, monitor progress closely -SM (r) LS (t) SM (c) adequate, monitor progress closely -RS Swallow Criteria for Skilled Therapeutic Interventions Met -- demonstrates skilled criteria -SM (r)LS (t) SM (c) demonstrates skilled criteria -SM (r) LS (t) SM (c) demonstrates skilled criteria -RS HYDRAULIC ENGINEER Treatment Clinical Impressions Treatment Assessment (HYDRAULIC ENGINEER) continued;toleration of diet;oral dysphagia;mild- moderate;pharyngeal dysphagia (P) -EM -- -- -- Daily Summary of Progress (HYDRAULIC ENGINEER) progress toward functional goals as expected (P) -EM -- -- -- Barriers to Overall Progress (HYDRAULIC ENGINEER) Cognitive status (P) -EM -- -- -- Plan for Continued Treatment (HYDRAULIC ENGINEER) continue treatment per plan of care (P) -EM -- -- -- Care Plan Review care plan/treatment goals reviewed;risks/benefits reviewed;patient/other agree to care plan (P) -EM -- -- -- Recommendations Therapy Frequency (Swallow) 5 days per week (P) -EM 5 days per week -SM (r) LS (t) SM (c) -- -- Predicted Duration Therapy Intervention (Days) 2 weeks (P) -EM 2 weeks -SM (r) LS (t) SM (c) -- -- HYDRAULIC ENGINEER Diet Recommendation mechanical ground textures;nectar thick liquids;ice chips between meals after oral care, with supervision (P) -EM mechanical ground textures;nectar thick liquids;ice chips between meals after oral care, with supervision -SM (r) LS (t) SM (c) NPO -SM (r) LS (t) SM (c) NPO -RS Recommended Diagnostics -- -- FEES -SM (r) LS (t) SM (c) reassess via clinical swallow evaluation -RS Recommended Precautions and Strategies upright posture during/after eating;general aspiration precautions;assist with feeding (P) -EM upright posture during/after eating;general aspiration precautions;assist with feeding - SM (r) LS (t) SM (c) upright posture during/after eating;general aspiration pr ecautions -SM (r) LS (t) SM (c) upright posture during/after eating;general aspiration precautions -RS Oral Care Recommendations Oral Care BID/PRN;Suction toothbrush (P) -EM Oral Care BID/PRN;Suction toothbrush -SM (r) LS (t) SM (c) Oral Care BID/PRN;Suction toothbrush -SM (r) LS (t) SM (c) Oral Care BID/PRN;Suction toothbrush -RS HYDRAULIC ENGINEER Rec. for Method of Medication Administration meds whole;with puree;as tolerated (P) -EM meds whole;with puree;as tolerated -SM (r) LS (t) SM (c) meds whole;with puree;as tolerated -SM (r) LS (t) SM (c) meds whole;with puree essential meds only -RS Monitor for Signs of Aspiration yes;notify HYDRAULIC ENGINEER if any concerns (P) -EM yes;notify HYDRAULIC ENGINEER if any concerns -SM (r) LS (t) SM (c) yes;notify HYDRAULIC ENGINEER if any concerns -SM (r) LS (t) SM (c) yes;notify HYDRAULIC ENGINEER if any concerns -RS Anticipated Discharge Disposition (HYDRAULIC ENGINEER) [facility] facility (P) -EM [facility] -SM (r) LS (t) SM (c) [facility] -SM (r) LS (t) SM (c) [facility] facility -RS Demonstrates Need for Referral to Another Service -- speech therapy -SM (r) LS (t) SM (c) speech therapy -SM (r) LS (t) SM (c) speech therapy;other (see comments) Pt would benefit from full [facility] eval -RS User [place]wood (r) = Recorded By, (t) = Taken By, (c) = Cosigned By Initials Name Effective Dates SM Denice Alva, MS CCC-HYDRAULIC ENGINEER 07/02/24 - Av Elena MS [facility]-HYDRAULIC ENGINEER 02/24/23 - Susannah Henderson, Speech Therapy Student 01/25/25 - Yumi Oleary, Speech Therapy Student 01/29/25 - EDUCATION The patient has been educated in the following areas: Dysphagia (Swallowing Impairment). HYDRAULIC ENGINEER GOALS Row Name 04/03/25 0920 04/02/25 1400 04/02/25 1330 (LTG) Patient will demonstrate functional swallow for Diet Texture (Demonstrate functional swallow) regular textures (P) -EM -- -SM (r) LS (t) SM (c) regular textures -SM (r) LS (t) SM (c) Liquid viscosity (Demonstrate functional swallow) thin liquids (P) -EM -- -SM (r) LS (t) SM (c) thin liquids -SM (r) LS (t) SM (c) [place] (Demonstrate functional swallow) with minimal cues (75-90% accuracy) (P) -EM -- -SM (r) LS (t) SM (c) with minimal cues (75-90% accuracy) - SM (r) LS (t) SM (c) Time Frame (Demonstrate functional swallow) 2 weeks (P) -EM -- -SM (r) LS (t) SM (c) 2 weeks -SM (r) LS (t) SM (c) Barriers (Demonstrate functional swallow) Lethargy (P) -EM -- -SM (r) LS (t) SM (c) Lethargy -SM (r) LS (t) SM (c) Progress/Outcomes (Demonstrate functional swallow) goal ongoing (P) -EM -- -SM (r) LS (t) SM (c) new goal -SM (r) LS (t) SM (c) Comment (Demonstrate functional swallow) -- (P) -EM -- -- (STG) Patient will tolerate trials of Consistencies Trialed (Tolerate trials) soft to chew (ground) textures;nectar/ mildly thick liquids(P) -EM -- -SM (r) LS (t) SM (c) soft to chew (ground) textures;nectar/ mildly thick liquids -SM (r) LS (t) SM (c) Desired Outcome (Tolerate trials) without signs/symptoms of aspiration;with adequate oral prep/transit/clearance (P) -EM -- -SM (r) LS (t) SM (c) without signs/symptoms of aspiration;with adequate oral prep/transit/clearance -SM (r) LS (t) SM (c) [place] (Tolerate trials) with moderate cues (50-74% accuracy) (P) -EM -- - SM (r) LS (t) SM (c) with moderate cues (50-74% accuracy) -SM (r) LS (t) SM (c) Time Frame (Tolerate trials) 1 week (P) -EM -- -SM (r) LS (t) SM (c) 1 week -SM (r) LS (t) SM (c) Progress/Outcomes (Tolerate trials) continuing progress toward goal (P) -EM -- - SM (r) LS (t) SM (c) new goal -SM (r) LS (t) SM (c) Comment (Tolerate trials) Pt tolerated trials of mechanical ground food items (sausage gravy, eggs,and oatmeal) with prolonged masitcation and anterior loss. Pt tolerated trials of nectar thick liquids (coffee, orange juice, and water) with occasional coughing via straw. (P) -EM -- -- (STG) Lingual Strengthening Goal 1 (HYDRAULIC ENGINEER) Activity (Lingual Strengthening Goal 1, HYDRAULIC ENGINEER) increase lingual tone/sensation/control/coordination/movement;increase tongue back strength (P) - EM -- -SM (r) LS (t) SM (c) increase lingual tone/sensatio n/control/coordination/movement;increase tongue back strength -SM (r) LS (t) SM (c) Increase Lingual Tone/Sensation/Control/Coordination/Movement lingual resistance exercises (P) -EM -- -SM (r) LS (t) SM (c) lingual resistance exercises -SM (r) LS (t) SM (c) Increase Tongue Back Strength lingual resistance exercises (P) -EM -- -SM (r) LS (t) SM (c) lingualresistance exercises -SM (r) LS (t) SM (c) [place]/Accuracy (Lingual Strengthening Goal 1, HYDRAULIC ENGINEER) with moderate cues (50-74% accuracy) (P) -EM -- -SM (r) LS (t) SM (c) with moderate cues (50-74% accuracy) -SM (r) LS (t) SM (c) Time Frame (Lingual Strengthening Goal 1, HYDRAULIC ENGINEER) 1 week (P) -EM -- -SM (r) LS (t) SM (c) 1 week -SM (r) LS (t) SM (c) Progress/Outcomes (Lingual Strengthening Goal 1, HYDRAULIC ENGINEER) goal ongoing (P) -EM -- - SM (r) LS (t) SM (c)new goal -SM (r) LS (t) SM (c) Comment (Lingual Strengthening Goal 1, HYDRAULIC ENGINEER) Pt unable to follow directions. (P) -EM -- -- (STG) Pharyngeal Strengthening Exercise Goal 1 (HYDRAULIC ENGINEER) Activity (Pharyngeal Strengthening Goal 1, HYDRAULIC ENGINEER) increase superior movement of the hyolaryngeal complex;increase anterior movement of the hyolaryngeal complex;increase closure at entrance to airway/closure of airway at glottis;increase squeeze/positive pressure generation (P) -EM -- -SM (r) LS (t) SM (c) increase superior movement of the hyolaryngeal complex;increase anterior movement of the hyolaryngeal complex;increase closure at entrance to airway/closure of airway at glottis;increase squeeze/positive pressure generation -SM (r) LS (t) SM (c) Increase Superior Movement of the Hyolaryngeal Complex Aye (P) -EM -- -SM (r) LS (t) SM (c) Aye -SM (r) LS (t) SM (c) Increase Anterior Movement of the Hyolaryngeal Complex chin tuck against resistance (CTAR) (P) -EM -- -SM (r) LS (t) SM (c) chin tuck against resistance (CTAR) -SM (r) LS (t) SM (c) Increase Closure at Entrance to Airway/Closure of Airway at Glottis supraglottic swallow (P) -EM ---SM (r) LS (t) SM (c) supraglottic swallow -SM (r) LS (t) SM (c) Increase Squeeze/Positive Pressure Generation hard effortful swallow (P) -EM -- -SM (r) LS (t) SM (c) hard effortful swallow -SM (r) LS (t) SM (c) [place]/Accuracy (Pharyngeal Strengthening Goal 1, HYDRAULIC ENGINEER) with moderate cues (50-74% accuracy) (P) -EM -- -SM (r) LS (t) SM (c) with moderate cues (50-74% accuracy) -SM (r) LS (t) SM (c) Time Frame (Pharyngeal Strengthening Goal 1, HYDRAULIC ENGINEER) 1 week (P) -EM -- -SM (r) LS (t) SM (c) 1 week -SM (r) LS (t) SM (c) Progress/Outcomes (Pharyngeal Strengthening Goal 1, HYDRAULIC ENGINEER) goal ongoing (P) -EM -- -SM (r) LS (t) SM (c) new goal -SM (r) LS (t) SM (c) Comment (Pharyngeal Strengthening Goal 1, HYDRAULIC ENGINEER) Pt unable to follow directions. (P) -EM -- -- Patient will demonstrate functional communication skills for return to discharge environment [place] Independently (P) -EM -- -SM (r) LS (t) SM (c) Independently -SM (r) LS (t) SM (c) Time frame 2 weeks (P) -EM -- -SM (r) LS (t) SM (c) 2 weeks -SM (r) LS (t) SM (c) Progress/Outcomes goal ongoing (P) -EM -- -SM (r) LS (t) SM (c) goal ongoing -SM (r) LS (t) SM (c) HYDRAULIC ENGINEER Diagnostic Treatment Patient will participate in further assessment in the following areas motor speech;higher-level cognitive-linguistic;clarification of baseline cognitive communication status (P) -EM -- -SM (r) LS (t)SM (c) motor speech;higher-level cognitive-linguistic;clarification of baseline cognitive communication status - SM (r) LS (t) SM (c) Time Frame (Diagnostic) 1 week (P) -EM -- -SM (r) LS (t) SM (c) 1 week -SM (r) LS (t) SM (c) Progress/Outcomes (Additional Goal 1, HYDRAULIC ENGINEER) progress slower than expected (P) -EM -- -SM (r) LS (t) SM (c) goal ongoing -SM (r) LS (t) SM (c) Comment (Diagnostic) HYDRAULIC ENGINEER attempted to call pt's spouse to discuss baseline function, however, he did not answer the phone call. RN reported contact w/ spouse has been attempted multiple times with noresponse throughout length of hospitalization. Higher level cognitive linguistic evaluation not indicated at this time due to unknown baseline and difficulty following commands. (P) -EM -- -- Row Name 04/02/25 1100 Patient will demonstrate functional communication skills for return to discharge environment [place] Independently -SM (r) LS (t) SM (c) Time frame 2 weeks -SM (r) LS (t) SM (c) Progress/Outcomes new goal -SM (r) LS (t) SM (c) HYDRAULIC ENGINEER Diagnostic Treatment Patient will participate in further assessment in the following areas motor speech;higher-level cognitive-linguistic;clarification of baseline cognitive communication status -SM (r) LS (t) SM (c) Time Frame (Diagnostic) 1 week -SM (r) LS (t) SM (c) Progress/Outcomes (Additional Goal 1, HYDRAULIC ENGINEER) new goal -SM (r) LS (t) SM (c) User [place]wood (r) = Recorded By, (t) = Taken By, (c) = Cosigned By Initials Name Provider Type Denice Regan, MS [facility]-HYDRAULIC ENGINEER Speech and Language Pathologist uSsannah Henderson, Speech Therapy Student HYDRAULIC ENGINEER Student Yumi Oleary, Speech Therapy Student HYDRAULIC ENGINEER Student Time Calculation: Time Calculation- HYDRAULIC ENGINEER Row Name 04/03/25 1211 Time Calculation- HYDRAULIC ENGINEER HYDRAULIC ENGINEER Start Time 0920 (P) -EM HYDRAULIC ENGINEER Received On 04/03/25 (P) -EM Untimed Charges 72534-BQ Treatment Swallow Minutes 68 (P) -EM Total Minutes Untimed Charges Total Minutes 68 (P) -EM Total Minutes 68 (P) -EM User [place] (r) = Recorded By, (t) = Taken By, (c) = Cosigned By Initials Name Provider Type EM Susannah Strickland Speech Therapy Student HYDRAULIC ENGINEER Student Susannah Strickland Speech Therapy Student 04/03/2025 Cosigned by Virginie Jacinto MS CCC-HYDRAULIC ENGINEER at 04/03/2025 1:25 PM EDT Associated attestation - Virginie Jacinto MS CCC-HYDRAULIC ENGINEER - 04/03/2025 1:25 PM EDT Virginie Jacinto MS CCC-HYDRAULIC ENGINEER * Therapy Evaluation - Yumi Singh Speech Therapy Student - 04/02/2025 2:35 PM EDT Images from the original note were not included. Acute Care - Speech Language Pathology Swallow Initial Evaluation [facility] Fiberoptic Endoscopic Evaluation of Swallowing (FEES) Patient Name: Regine Anguiano : 1955 Today's Date: 04/02/2025 Admit Date: 03/31/2025 Visit Dx: ICD-10-CM ICD-9-CM 1. Oropharyngeal dysphagia R13.12 787.22 Patient Active Problem List Diagnosis Seizure Aspiration pneumonitis -aspiration pneumonitis versus pneumonia Acute hypoxemic respiratory failure -noted from outside hospital where she was intubated. Alcohol dependence with withdrawal delirium -presented with seizures concerning for potential alcohol withdrawal Anemia -uncertain etiology or chronicity No past medical history on file. No past surgical history on file. HYDRAULIC ENGINEER Recommendation and Plan Recommended discharge disposition is based on the functional assessment performed by PT/OT/Speech therapy (as applicable) and may not reflect the medical necessity determined by your provider or services covered by an individual patient's insurance plan or patient resource. HYDRAULIC ENGINEER Swallowing Diagnosis: (P) oral dysphagia, mild-moderate, pharyngeal dysphagia (04/02/25 1330) HYDRAULIC ENGINEER Diet Recommendation: (P) mechanical ground textures, nectar thick liquids, ice chips between meals after oral care, with supervision (04/02/251329) Recommended Precautions and Strategies: (P) upright posture during/after eating, general aspirationprecautions, assist with feeding (04/02/251329) HYDRAULIC ENGINEER Rec. for Method of Medication Administration: (P) meds whole, with puree, as tolerated (04/02/251329) Monitor for Signs of Aspiration: (P) yes, notify HYDRAULIC ENGINEER if any concerns (04/02/251329) Recommended Diagnostics: FEES (04/02/25 1100) Swallow Criteria for Skilled Therapeutic Interventions Met: (P) demonstrates skilled criteria (04/02/251329) Anticipated Discharge Disposition (HYDRAULIC ENGINEER): (P) [facility] facility (04/02/251329) Rehab Potential/Prognosis, Swallowing: (P) adequate, monitor progress closely (04/02/251329) Therapy Frequency (Swallow): (P) 5 days per week (04/02/251329) Predicted Duration Therapy Intervention (Days): (P) 2 weeks (04/02/251329) Oral Care Recommendations: (P) Oral Care BID/PRN, Suction toothbrush (04/02/251329) Demonstrates Need for Referral to Another Service: (P) speech therapy (04/02/251329) Progress: (P) improving SWALLOW EVALUATION (Last 72 Hours) HYDRAULIC ENGINEER Adult Swallow Evaluation Row Name 04/02/25132904/02/25 1100 04/01/25 1549 Rehab Evaluation Document Type evaluation (P) -LS evaluation;re-evaluation -SM (r) LS (t) SM (c) evaluation -RS Subjective Information no complaints (P) -LS -- no complaints -RS Patient Observations cooperative;lethargic (P) -LS -- alert -RS Patient/Family/Caregiver Comments/Observations -- -- Pt is very confused, in constant motion in bed-RS Patient Effort good (P) -LS -- fair -RS Symptoms Noted During/After Treatment none (P) -LS -- none -RS Oral Care -- -- oral rinse provided -RS General Information Patient Profile Reviewed yes (P) -LS -- yes -RS Pertinent History Of Current Problem See initial HYDRAULIC ENGINEER eval (P) -LS -- Pt is a 70 yoF w PMHx ETOH abuse who presented to OSH after being found down unresponsive. Pt with witnessed seizure activity and intubated. She was transferred to [facility] for higher level of care. SDH found on MRI per [facility] notes, no indication for surgical intervention. Pt was extubated at approximately 1500 today. 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 -RS Precautions/Limitations, Hearing hearing impairment, bilaterally (P) -LS -- hearing impairment, bilaterally;difficult to assess -RS Prior Level of Function-Communication unknown (P) -LS -- unknown -RS Prior Level of Function-Swallowing -- -- unknown;other (see comments) no previous HYDRAULIC ENGINEER hx, pt u/a toindicate -RS Plans/Goals Discussed with patient (P) -LS -- patient -RS Pain Pretreatment Pain Rating 6/10 (P) -LS -- -- Posttreatment Pain Rating 6/10 (P) -LS -- -- Pain Location shoulder (P) -LS -- -- Pain Side/Orientation right (P) -LS -- -- Pain Management Interventions other (see comments) (P) nursing aware and managing -LS -- -- Additional Documentation -- -- Pain Scale: FACES Pre/Post-Treatment (Group) -RS Pain Scale: FACES Pre/Post-Treatment Pain: FACES Scale, Pretreatment -- -- 2-->hurts little bit -RS Posttreatment Pain Rating -- -- 2-->hurts little bit -RS Oral Motor Structure and Function Dentition Assessment -- teeth are in poor condition;missing teeth -SM (r) LS (t) SM (c) teeth are in poor condition;missing teeth -RS Secretion Management -- -- wet vocal quality -RS Mucosal Quality -- -- sticky -RS Volitional Swallow -- -- unable to elicit -RS Volitional Cough -- -- weak;reduced respiratory support -RS Oral Musculature and Cranial Nerve Assessment Oral Motor General Assessment -- generalized oral motor weakness -SM (r) LS (t) SM (c) generalized oral motor weakness -RS General Eating/Swallowing Observations Respiratory Support Currently in Use nasal cannula (P) -LS -- nasal cannula -RS Eating/Swallowing Skills fed by HYDRAULIC ENGINEER;needed assist (P) -LS fed by HYDRAULIC ENGINEER -SM (r) LS (t) SM (c) fed by HYDRAULIC ENGINEER;unable to perform self-feeding -RS Positioning During Eating upright in chair (P) -LS upright in chair -SM (r) LS (t) SM (c) upright in bed -RS Utensils Used spoon;straw (P) -LS spoon;cup -SM (r) LS (t) SM (c) spoon;cup;straw -RS Consistencies Trialed regular textures;pureed;ice chips;thin liquids;nectar/syrup-thick liquids (P)-LS pureed;ice chips;thin liquids -SM (r) LS (t) SM (c) thin liquids;ice chips;pureed -RS Respiratory Respiratory Status -- -- WFL -RS Date of Intubation -- 03/31-04/01 -SM (r) LS (t) SM (c) 03/31-04/01 -RS Clinical Swallow Eval Oral Prep Phase -- WFL -SM (r) LS (t) SM (c) impaired -RS Oral Transit -- impaired -SM (r) LS (t) SM (c) impaired -RS Oral Residue -- WFL -SM (r) LS (t) SM (c) WFL -RS Pharyngeal Phase -- suspected pharyngeal impairment -SM (r) LS (t) SM (c) suspected pharyngeal impairment -RS Esophageal Phase -- unremarkable -SM (r) LS (t) SM (c) unremarkable -RS Oral Prep Concerns Oral Prep Concerns -- -- incomplete or weak lip closure around spoon -RS Incomplete or Weak Lip Closure Around Spoon -- -- all consistencies -RS Oral Prep Concerns, Comment -- -- u/a to achieve closure around straw or pull thins -RS Oral Transit Concerns Oral Transit Concerns -- delayed initiation of bolus transit -SM (r) LS (t) SM (c) delayed initiation of bolus transit -RS Delayed Intiation of Bolus Transit -- all consistencies -SM (r) LS (t) SM (c) all consistencies -RS Pharyngeal Phase Concerns Pharyngeal Phase Concerns -- multiple swallows;wet vocal quality -SM (r) LS (t) SM (c) multiple swallows;wet vocal quality;cough;throat clear -RS Wet Vocal Quality -- thin -SM (r) LS (t) SM (c) thin;other (see comments) and ice -RS Multiple Swallows -- thin;other (see comments) ice -SM (r) LS (t) SM (c) thin;other (see comments) and ice -RS Cough -- -- thin;other (see comments) and ice -RS Throat Clear -- -- thin;other (see comments) and ice -RS Pharyngeal Phase Concerns, Comment -- very weak vocal quality, however pt much more alert. HYDRAULIC ENGINEER willassess via FEES. -SM (r) LS (t) SM (c) Voice is essentially aphonic and coupled with mental status,intelligibility is low. Pt may have essential meds in puree, HYDRAULIC ENGINEER will re-assess and determine need for instrumental prior to PO diet -RS Fiberoptic Endoscopic Evaluation of Swallowing (FEES) Risks/Benefits Reviewed risks/benefits explained;patient;agreed to eval (P) -LS -- -- Nasal Entry left: (P) -LS -- -- Scope serial number/identification [id number] (P) -LS -- -- Anatomy and Physiology Anatomic Considerations no anatomic structural deviation (P) -LS -- -- Velopharyngeal WFL (P) -LS -- -- Base of Tongue symmetrical (P) -LS -- -- Epiglottis WFL (P) -LS -- -- Laryngeal Function Breathing symmetrical (P) -LS -- -- Laryngeal Function Phonation symmetrical (P) -LS -- -- Laryngeal Function to Breath Hold TVF contact;sustained closure (P) -LS -- -- Secretion Rating Scale (Too et al. 1996) 1- secretions present around the laryngeal vestibule (P) -LS -- -- Secretion Description thin;clear (P) -LS -- -- Sensory sensed scope (P) -LS -- -- FEES Interpretation Oral Phase prolonged manipulation;with solids only (P) -LS -- -- Initiation of Pharyngeal Swallow Initiation of Pharyngeal Swallow bolus in valleculae (P) -LS -- -- Pharyngeal Phase impaired pharyngeal phase of swallowing (P) -LS -- -- Penetration During the Swallow thin liquids;secondary to delayed swallow initiation or mistiming;secondary to reduced laryngeal elevation;secondary to reduced vestibular closure;other (see comments) (P) deep and trace penetration w/ consecutive sips. -LS -- -- Aspiration After the Swallow thin liquids;secondary to residue;in laryngeal vestibule;other (see comments) (P) Following penetration, residue mixed with saliva and dropped just below the vocal folds.-LS -- -- Depth of Penetration deep (P) trace -LS -- -- Response to Penetration Yes (P) -LS -- -- Responsed to penetration with inconsistent;throat clear;cough (P) -LS -- -- Response to Aspiration Yes (P) -LS -- -- Responsed to aspiration with inconsistent;throat clear;cough (P) -LS -- -- Rosenbek's Scale thin:;6-->Level 6 (P) w/ consecutive sips -LS -- -- Residue thin liquids;laryngeal vestibule;secondary to reduced base of tongue retraction;secondary to reduced laryngeal elevation;secondary to reduced hyolaryngeal excursion (P) -LS -- -- Response to Residue unable to clear residue (P) -LS -- -- Attempted Compensatory Maneuvers bolus size;bolus presentation style;throat clear after swallow (P)-LS -- -- Response to Attempted Compensatory Maneuvers prevented penetration;prevented aspiration;reduced residue (P) -LS -- -- Pharyngeal Phase, Comment Although residue was cleared and liquid aspirated was ejected out of the airway, pt is lethargic. This contributes to the risk of aspiration and pt will unlikely be able to follow compensatory strategies. (P) - LS -- -- Swallowing Quality of Life Assessment Education and counseling provided Signs of aspiration;Silent aspiration (P) -LS -- Signs of aspiration;Silent aspiration -RS HYDRAULIC ENGINEER Evaluation Clinical Impression HYDRAULIC ENGINEER Swallowing Diagnosis oral dysphagia;mild-moderate;pharyngeal dysphagia (P) - LS oral dysphagia;R/O pharyngeal dysphagia -SM (r) LS (t) SM (c) oral dysphagia;R/O pharyngeal dysphagia -RS Functional Impact risk of aspiration/pneumonia (P) -LS risk of aspiration/pneumonia -SM (r) LS (t) SM (c) risk of aspiration/pneumonia -RS Rehab Potential/Prognosis, Swallowing adequate, monitor progress closely (P) -LS adequate, monitor progress closely -SM (r) LS (t) SM (c) adequate, monitor progress closely -RS Swallow Criteria for Skilled Therapeutic Interventions Met demonstrates skilled criteria (P) -LS demonstrates skilled criteria -SM (r) LS (t) SM (c) demonstrates skilled criteria -RS Recommendations Therapy Frequency (Swallow) 5 days per week (P) -LS -- -- Predicted Duration Therapy Intervention (Days) 2 weeks (P) -LS -- -- HYDRAULIC ENGINEER Diet Recommendation mechanical ground textures;nectar thick liquids;ice chips between meals after oral care, with supervision (P) -LS NPO -SM (r) LS (t) SM (c) NPO -RS Recommended Diagnostics -- FEES -SM (r) LS (t) SM (c) reassess via clinical swallow evaluation -RS Recommended Precautions and Strategies upright posture during/after eating;general aspiration precautions;assist with feeding (P) -LS upright posture during/after eating;general aspiration precautions -SM (r) LS (t) SM (c) upright posture during/after eating;general aspiration precautions -RS Oral Care Recommendations Oral Care BID/PRN;Suction toothbrush (P) -LS Oral Care BID/PRN;Suction toothbrush -SM (r) LS (t) SM (c) Oral Care BID/PRN;Suction toothbrush -RS HYDRAULIC ENGINEER Rec. for Method of Medication Administration meds whole;with puree;as tolerated (P) -LS meds whole;with puree;as tolerated -SM (r) LS (t) SM (c) meds whole;with puree essential meds only -RS Monitor for Signs of Aspiration yes;notify HYDRAULIC ENGINEER if any concerns (P) -LS yes;notify HYDRAULIC ENGINEER if any concerns -SM (r) LS (t) SM (c) yes;notify HYDRAULIC ENGINEER if any concerns -RS Anticipated Discharge Disposition (HYDRAULIC ENGINEER) [facility] facility (P) -LS [facility] -SM (r) LS (t) SM (c) [facility] facility -RS Demonstrates Need for Referral to Another Service speech therapy (P) -LS speech therapy -SM (r) LS (t) SM (c) speech therapy;other (see comments) Pt would benefit from full [facility] eval -RS User Lockwood (r) = Recorded By, (t) = Taken By, (c) = Cosigned By Initials Name Effective Dates Denice Regan MS [facility]-HYDRAULIC ENGINEER 07/02/24 - Av Elena MS [facility]-HYDRAULIC ENGINEER 02/24/23 - Yumi Oleary, Speech Therapy Student 01/29/25 - EDUCATION The patient has been educated in the following areas: Dysphagia (Swallowing Impairment) Oral Care/Hydration Modified Diet Instruction. HYDRAULIC ENGINEER GOALS Row Name 04/02/25 1400 04/02/25 1330 04/02/25 1100 (LTG) Patient will demonstrate functional swallow for Diet Texture (Demonstrate functional swallow) -- (P) -LS regular textures (P) - LS -- Liquid viscosity (Demonstrate functional swallow) -- (P) -LS thin liquids (P) - LS -- [place] (Demonstrate functional swallow) -- (P) -LS with minimal cues (75- 90% accuracy) (P) -LS -- Time Frame (Demonstrate functional swallow) -- (P) -LS 2 weeks (P) -LS -- Barriers (Demonstrate functional swallow) -- (P) -LS Lethargy (P) -LS -- Progress/Outcomes (Demonstrate functional swallow) -- (P) -LS new goal (P) -LS -- (STG) Patient will tolerate trials of Consistencies Trialed (Tolerate trials) -- (P) -LS soft to chew (ground) textures;nectar/ mildly thick liquids (P) -LS -- Desired Outcome (Tolerate trials) -- (P) -LS without signs/symptoms of aspiration;with adequate oral prep/transit/clearance (P) -LS -- [place] (Tolerate trials) -- (P) -LS with moderate cues (50-74% accuracy) (P) -LS -- Time Frame (Tolerate trials) -- (P) -LS 1 week (P) -LS -- Progress/Outcomes (Tolerate trials) -- (P) -LS new goal (P) -LS -- (STG) Lingual Strengthening Goal 1 (HYDRAULIC ENGINEER) Activity (Lingual Strengthening Goal 1, HYDRAULIC ENGINEER) -- (P) -LS increase lingual tone/sensation/control/coordination/movement;increase tongue back strength (P) - LS -- Increase Lingual Tone/Sensation/Control/Coordination/Movement -- (P) -LS lingual resistance exercises (P) -LS -- Increase Tongue Back Strength -- (P) -LS lingual resistance exercises (P) -LS -- [place]/Accuracy (Lingual Strengthening Goal 1, HYDRAULIC ENGINEER) -- (P) -LS with moderate cues (50-74% accuracy) (P) -LS -- Time Frame (Lingual Strengthening Goal 1, HYDRAULIC ENGINEER) -- (P) -LS 1 week (P) -LS -- Progress/Outcomes (Lingual Strengthening Goal 1, HYDRAULIC ENGINEER) -- (P) -LS new goal (P) - LS -- (STG) Pharyngeal Strengthening Exercise Goal 1 (HYDRAULIC ENGINEER) Activity (Pharyngeal Strengthening Goal 1, HYDRAULIC ENGINEER) -- (P) -LS increase superior movement of the hyolaryngeal complex;increase anterior movement of the hyolaryngeal complex;increase closure at entrance to airway/closure of airway at glottis;increase squeeze/positive pressure generation (P) -LS -- Increase Superior Movement of the Hyolaryngeal Complex -- (P) -LS Aye (P) -LS -- Increase Anterior Movement of the Hyolaryngeal Complex -- (P) -LS chin tuck against resistance (CTAR) (P) -LS -- Increase Closure at Entrance to Airway/Closure of Airway at Glottis -- (P) -LS supraglottic swallow(P) -LS -- Increase Squeeze/Positive Pressure Generation -- (P) -LS hard effortful swallow (P) -LS -- [place]/Accuracy (Pharyngeal Strengthening Goal 1, HYDRAULIC ENGINEER) -- (P) -LS with moderate cues (50-74% accuracy) (P) -LS -- Time Frame (Pharyngeal Strengthening Goal 1, HYDRAULIC ENGINEER) -- (P) -LS 1 week (P) -LS -- Progress/Outcomes (Pharyngeal Strengthening Goal 1, HYDRAULIC ENGINEER) -- (P) -LS new goal (P) -LS -- Patient will demonstrate functional communication skills for return to discharge environment [place] -- (P) -LS Independently (P) -LS Independently -SM (r) LS (t) SM (c) Time frame -- (P) -LS 2 weeks (P) -LS 2 weeks -SM (r) LS (t) SM (c) Progress/Outcomes -- (P) -LS goal ongoing (P) -LS new goal (P) -LS HYDRAULIC ENGINEER Diagnostic Treatment Patient will participate in further assessment in the following areas -- (P) -LS motor speech;higher-level cognitive-linguistic;clarification of baseline cognitive communication status (P) -LS motor speech;higher-level cognitive- linguistic;clarification of baseline cognitive communication status -SM (r) LS (t) SM (c) Time Frame (Diagnostic) -- (P) -LS 1 week (P) -LS 1 week -SM (r) LS (t) SM (c) Progress/Outcomes (Additional Goal 1, HYDRAULIC ENGINEER) -- (P) -LS goal ongoing (P) -LS new goal -SM (r) LS (t) SM (c) User Lockwood (r) = Recorded By, (t) = Taken By, (c) = Cosigned By Initials Name Provider Type Denice Regan MS [facility]-HYDRAULIC ENGINEER Speech and Language Pathologist Yumi Oleary, Speech Therapy Student HYDRAULIC ENGINEER Student Time Calculation: Time Calculation- HYDRAULIC ENGINEER Row Name 04/02/25 1434 04/02/25 1241 Time Calculation- HYDRAULIC ENGINEER HYDRAULIC ENGINEER Start Time 1330 (P) -LS 1100 -SM (r) LS (t) SM (c) HYDRAULIC ENGINEER Received On 04/02/25 (P) -LS 04/02/25 -SM (r) LS (t) SM (c) Untimed Charges 40804-FZ Eval Speech and Production w/ Language Minutes -- 20 -SM (r) LS (t) SM (c) 55504-YC Eval Oral Pharyng Swallow Minutes -- 40 -SM (r) LS (t) SM (c) 11162-ZC Fiberoptic Endo Eval Swallow Minutes 58 (P) -LS -- Total Minutes Untimed Charges Total Minutes 58 (P) -LS 60 -SM (r) LS (t) Total Minutes 58 (P) -LS 60 -SM (r) LS (t) User Lockwood (r) = Recorded By, (t) = Taken By, (c) = Cosigned By Initials Name Provider Type Denice Regan MS [facility]-HYDRAULIC ENGINEER Speech and Language Pathologist Yumi Oleary, Speech Therapy Student HYDRAULIC ENGINEER Student Therapy Charges for Today Code Description Service Date Service Provider Modifiers Qty [id number] HC ST EVAL SPEECH AND PROD W LANG 2 04/02/2025 Yumi Singh, Speech Therapy Student GN [id number] EVAL ORAL PHARYNG SWALLOW 3 04/02/2025 Yumi Singh, Speech Therapy Student GN [id number] FIBEROPTIC ENDO EVAL SWALL 4 04/02/2025 Yumi Singh, Speech Therapy StudentGN 1 Yumi Mccain Speech Therapy Student 04/02/2025 Cosigned by Denice Alva MS CCC-HYDRAULIC ENGINEER at 04/02/2025 3:04 PM EDT Associated attestation - Denice Alva MS CCC-HYDRAULIC ENGINEER - 04/02/2025 3:04 PM EDT Denice Alva MS CCC-HYDRAULIC ENGINEER * Therapy Re-Evaluation - Yumi Singh Speech Therapy Student - 04/02/2025 12:45 PM EDT Images from the original note were not included. Acute Care - Speech Language Pathology Swallow Re-Evaluation [facility] Clinical Swallow Evaluation Cognitive-Communication Evaluation Patient Name: Regine Anguiano : 1955 Today's Date: 04/02/2025 Admit Date: 03/31/2025 Visit Dx: ICD-10-CM ICD-9-CM 1. Dysphagia, unspecified type R13.10 787.20 Patient Active Problem List Diagnosis Seizure Aspiration pneumonitis -aspiration pneumonitis versus pneumonia Acute hypoxemic respiratory failure -noted from outside hospital where she was intubated. Alcohol dependence with withdrawal delirium -presented with seizures concerning for potential alcohol withdrawal Anemia -uncertain etiology or chronicity No past medical history on file. No past surgical history on file. HYDRAULIC ENGINEER Recommendation and Plan Recommended discharge disposition is based on the functional assessment performed by PT/OT/Speech therapy (as applicable) and may not reflect the medical necessity determined by your provider or services covered by an individual patient's insurance plan or patient resource. HYDRAULIC ENGINEER Swallowing Diagnosis: (P) oral dysphagia, R/O pharyngeal dysphagia (04/02/25 1100) HYDRAULIC ENGINEER Diet Recommendation: (P) NPO (04/02/251099) Recommended Precautions and Strategies: (P) upright posture during/after eating, general aspirationprecautions (04/02/251099) HYDRAULIC ENGINEER Rec. for Method of Medication Administration: (P) meds whole, with puree, as tolerated (04/02/251099) Monitor for Signs of Aspiration: (P) yes, notify HYDRAULIC ENGINEER if any concerns (04/02/251099) Recommended Diagnostics: (P) FEES (04/02/251099) Swallow Criteria for Skilled Therapeutic Interventions Met: (P) demonstrates skilled criteria (04/02/251099) Anticipated Discharge Disposition (HYDRAULIC ENGINEER): (P) [facility] facility (04/02/251099) Rehab Potential/Prognosis, Swallowing: (P) adequate, monitor progress closely (04/02/251099) Predicted Duration Therapy Intervention (Days): (P) 2 weeks (04/02/251099) Oral Care Recommendations: (P) Oral Care BID/PRN, Suction toothbrush (04/02/251099) Demonstrates Need for Referral to Another Service: (P) speech therapy (04/02/251099) Progress: (P) improving SWALLOW EVALUATION (Last 72 Hours) HYDRAULIC ENGINEER Adult Swallow Evaluation Row Name 04/02/25 1100 04/01/25 5342 Rehab Evaluation Document Type evaluation;re-evaluation (P) -LS evaluation -RS Subjective Information No complaints no complaints -RS Patient Observations Alert; cooperative alert -RS Patient/Family/Caregiver Comments/Observations -- Pt is very confused, in constant motion in bed -RS Patient Effort good fair -RS Symptoms Noted During/After Treatment none none -RS Oral Care -- oral rinse provided -RS General Information Patient Profile Reviewed yes yes -RS Pertinent History Of Current Problem See initial eval Pt is a 70 yoF w PMHx ETOH abuse who presented to OSH after being found down unresponsive. Pt with witnessed seizure activity and intubated. She was transferred to [facility] for higher level of care. SDH found on MRI per [facility] notes, no indication for surgical intervention. Pt was extubated at approximately 1500 today. 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 -RS Precautions/Limitations, Hearing -- hearing impairment, bilaterally;difficult to assess -RS Prior Level of Function-Communication -- unknown -RS Prior Level of Function-Swallowing -- unknown;other (see comments) no previous HYDRAULIC ENGINEER hx, pt u/a to indicate -RS Plans/Goals Discussed with -- patient -RS Pain Additional Documentation -- Pain Scale: FACES Pre/Post-Treatment (Group) -RS Pain Scale: FACES Pre/Post-Treatment Pain: FACES Scale, Pretreatment -- 2-->hurts little bit -RS Posttreatment Pain Rating -- 2-->hurts little bit -RS Oral Motor Structure and Function Dentition Assessment teeth are in poor condition;missing teeth (P) -LS teeth are in poor condition;missing teeth -RS Secretion Management -- wet vocal quality -RS Mucosal Quality -- sticky -RS Volitional Swallow -- unable to elicit -RS Volitional Cough -- weak;reduced respiratory support -RS Oral Musculature and Cranial Nerve Assessment Oral Motor General Assessment generalized oral motor weakness (P) -LS generalized oral motor weakness -RS General Eating/Swallowing Observations Respiratory Support Currently in Use -- nasal cannula -RS Eating/Swallowing Skills fed by HYDRAULIC ENGINEER (P) -LS fed by HYDRAULIC ENGINEER;unable to perform self- feeding -RS Positioning During Eating upright in chair (P) -LS upright in bed -RS Utensils Used spoon;cup (P) -LS spoon;cup;straw -RS Consistencies Trialed pureed;ice chips;thin liquids (P) -LS thin liquids;ice chips;pureed -RS Respiratory Respiratory Status -- WFL -RS Date of Intubation 03/31-04/01 (P) -LS 03/31-04/01 -RS Clinical Swallow Eval Oral Prep Phase WFL (P) -LS impaired -RS Oral Transit impaired (P) -LS impaired -RS Oral Residue WFL (P) -LS WFL -RS Pharyngeal Phase suspected pharyngeal impairment (P) -LS suspected pharyngeal impairment -RS Esophageal Phase unremarkable (P) -LS unremarkable -RS Oral Prep Concerns Oral Prep Concerns -- incomplete or weak lip closure around spoon -RS Incomplete or Weak Lip Closure Around Spoon -- all consistencies -RS Oral Prep Concerns, Comment -- u/a to achieve closure around straw or pull thins -RS Oral Transit Concerns Oral Transit Concerns delayed initiation of bolus transit (P) -LS delayed initiation of bolus transit -RS Delayed Intiation of Bolus Transit all consistencies (P) -LS all consistencies -RS Pharyngeal Phase Concerns Pharyngeal Phase Concerns multiple swallows;wet vocal quality (P) -LS multiple swallows;wet vocal quality;cough;throat clear -RS Wet Vocal Quality thin (P) -LS thin;other (see comments) and ice -RS Multiple Swallows thin;other (see comments) (P) ice -LS thin;other (see comments) and ice -RS Cough -- thin;other (see comments) and ice -RS Throat Clear -- thin;other (see comments) and ice -RS Pharyngeal Phase Concerns, Comment very weak vocal quality, however pt much more alert. HYDRAULIC ENGINEER will assess via FEES. (P) -LS Voice is essentially aphonic and coupled with mental status, intelligibility is low. Pt may have essential meds in puree, HYDRAULIC ENGINEER will re-assess and determine need for instrumental prior to PO diet -RS Swallowing Quality of Life Assessment Education and counseling provided -- Signs of aspiration;Silent aspiration -RS HYDRAULIC ENGINEER Evaluation Clinical Impression HYDRAULIC ENGINEER Swallowing Diagnosis oral dysphagia;R/O pharyngeal dysphagia (P) -LS oral dysphagia;R/O pharyngeal dysphagia -RS Functional Impact risk of aspiration/pneumonia (P) -LS risk of aspiration/pneumonia -RS Rehab Potential/Prognosis, Swallowing adequate, monitor progress closely (P) -LS adequate, monitor progress closely -RS Swallow Criteria for Skilled Therapeutic Interventions Met demonstrates skilled criteria (P) -LS demonstrates skilled criteria -RS Recommendations HYDRAULIC ENGINEER Diet Recommendation NPO (P) -LS NPO -RS Recommended Diagnostics FEES (P) -LS reassess via clinical swallow evaluation -RS Recommended Precautions and Strategies upright posture during/after eating;general aspiration precautions (P) -LS upright posture during/after eating;general aspiration precautions -RS Oral Care Recommendations Oral Care BID/PRN;Suction toothbrush (P) -LS Oral Care BID/PRN;Suction toothbrush -RS HYDRAULIC ENGINEER Rec. for Method of Medication Administration meds whole;with puree;as tolerated (P) -LS meds whole;with puree essential meds only -RS Monitor for Signs of Aspiration yes;notify HYDRAULIC ENGINEER if any concerns (P) -LS yes;notify HYDRAULIC ENGINEER if any concerns -RS Anticipated Discharge Disposition (HYDRAULIC ENGINEER) [facility] facility (P) -[facility] -RS Demonstrates Need for Referral to Another Service speech therapy (P) -LS speech therapy;other (see comments) Pt would benefit from full SLC eval -RS User Lockwood (r) = Recorded By, (t) = Taken By, (c) = Cosigned By Initials Name Effective Dates RS Av Varghese MS [facility]-HYDRAULIC ENGINEER 02/24/23 - LS Yumi Singh Speech Therapy Student 01/29/25 - EDUCATION The patient has been educated in the following areas: Dysphagia (Swallowing Impairment) Oral Care/Hydration. HYDRAULIC ENGINEER GOALS Row Name 04/02/25 1100 Patient will demonstrate functional communication skills for return to discharge environment [place] Independently (P) -LS Time frame 2 weeks (P) -LS HYDRAULIC ENGINEER Diagnostic Treatment Patient will participate in further assessment in the following areas motor speech;higher-level cognitive-linguistic;clarification of baseline cognitive communication status (P) -LS Time Frame (Diagnostic) 1 week (P) -LS Progress/Outcomes (Additional Goal 1, HYDRAULIC ENGINEER) new goal (P) -LS User Lockwood (r) = Recorded By, (t) = Taken By, (c) = Cosigned By Initials Name Provider Type Yumi Oleary, Speech Therapy Student HYDRAULIC ENGINEER Student Time Calculation: Time Calculation- HYDRAULIC ENGINEER Row Name 04/02/25 1241 Time Calculation- HYDRAULIC ENGINEER HYDRAULIC ENGINEER Start Time 1100 (P) -LS HYDRAULIC ENGINEER Received On 04/02/25 (P) -LS Untimed Charges 28113-ZY Eval Speech and Production w/ Language Minutes 20 (P) -LS 89050-CE Eval Oral Pharyng Swallow Minutes 40 (P) -LS Total Minutes Untimed Charges Total Minutes 60 (P) -LS Total Minutes 60 (P) -LS User Lockwood (r) = Recorded By, (t) = Taken By, (c) = Cosigned By Initials Name Provider Type LS Yumi Singh Speech Therapy Student HYDRAULIC ENGINEER Student Therapy Charges for Today Code Description Service Date Service Provider Modifiers Qty [id number] HC ST EVAL SPEECH AND PROD W LANG 2 04/02/2025 Yumi Singh, Speech Therapy Student GN [id number] EVAL ORAL PHARYNG SWALLOW 3 04/02/2025 Yumi Singh Speech Therapy Student GN 1 Yumi Mccain Speech Therapy Student 04/02/2025 and Acute Care - Speech Language Pathology Initial Evaluation Effie Patient Name: Regine Anguiano : 1955 Today's Date: 04/02/2025 Admit Date: 03/31/2025 Visit Dx: ICD-10-CM ICD-9-CM 1. Dysphagia, unspecified type R13.10 787.20 Patient Active Problem List Diagnosis Seizure Aspiration pneumonitis -aspiration pneumonitis versus pneumonia Acute hypoxemic respiratory failure -noted from outside hospital where she was intubated. Alcohol dependence with withdrawal delirium -presented with seizures concerning for potential alcohol withdrawal Anemia -uncertain etiology or chronicity No past medical history on file. No past surgical history on file. HYDRAULIC ENGINEER Recommendation and Plan Recommended discharge disposition is based on the functional assessment performed by PT/OT/Speech therapy (as applicable) and may not reflect the medical necessity determined by your provider or services covered by an individual patient's insurance plan or patient resource. HYDRAULIC ENGINEER Diagnosis: (P) mild-moderate, cognitive-linguistic disorder, dysarthria (04/02/251099) Monitor for Signs of Aspiration: (P) yes, notify HYDRAULIC ENGINEER if any concerns (04/02/251099) Swallow Criteria for Skilled Therapeutic Interventions Met: (P) demonstrates skilled criteria (04/02/251099) SLC Criteria for Skilled Therapy Interventions Met: (P) yes (04/02/251099) Anticipated Discharge Disposition (HYDRAULIC ENGINEER): (P) [facility] facility (04/02/251099) Demonstrates Need for Referral to Another Service: (P) speech therapy (04/02/251099) Therapy Frequency (HYDRAULIC ENGINEER SLC): (P) 5 days per week (04/02/251099) Predicted Duration Therapy Intervention (Days): (P) 2 weeks (04/02/251099) Oral Care Recommendations: (P) Oral Care BID/PRN, Suction toothbrush (04/02/251099) Progress: (P) improving (04/02/25 1238) HYDRAULIC ENGINEER EVALUATION (Last 72 Hours) HYDRAULIC ENGINEER SLC Evaluation Row Name 04/02/251099 Communication Assessment/Intervention Subjective Information no complaints (P) -LS Patient Observations alert;cooperative (P) -LS Patient Effort good (P) -LS Symptoms Noted During/After Treatment none (P) -LS General Information Patient Profile Reviewed yes (P) -LS Pertinent History Of Current Problem See initial eval (P) -LS Precautions/Limitations, Vision vision impairment, left;other (see comments) (P) 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 -LS Precautions/Limitations, Hearing hearing impairment, bilaterally (P) -LS Plans/Goals Discussed with patient (P) -LS Pain Pretreatment Pain Rating 10/10 (P) -LS Posttreatment Pain Rating 10/10 (P) -LS Pain Location shoulder (P) -LS Pain Side/Orientation right (P) -LS Pain Management Interventions nursing notified;other (see comments) (P) managing -LS Comprehension Assessment/Intervention Comprehension Assessment/Intervention Auditory Comprehension (P) -LS Auditory Comprehension Assessment/Intervention Able to Follow Commands (Communication) 1-step;WFL (P) -LS Expression Assessment/Intervention Expression Assessment/Intervention verbal expression (P) -LS Verbal Expression Assessment/Intervention Verbal Expression mild impairment;moderate impairment (P) -LS Conversational Discourse/Fluency mild impairment;moderate impairment;delayed responses (P) -LS Oral Motor Structure and Function Oral Lesions or Structural Abnormalities and/or variants Prominence present on pt's palate and right side of tongue slightly purple. (P) -LS Motor Speech Assessment/Intervention Motor Speech Function mild impairment;moderate impairment (P) -LS Characteristics Consistent with Dysarthria slow rate;decreased intensity (P) -LS Cursory Voice Assessment/Intervention Quality and Resonance (Voice) aphonia;breathy;moderate impairment (P) -LS Cognitive Assessment Intervention- HYDRAULIC ENGINEER Cognitive Function (Cognition) WFL (P) -LS Orientation Status (Cognition) person;place;situation;WFL (P) -LS HYDRAULIC ENGINEER Evaluation Clinical Impressions HYDRAULIC ENGINEER Diagnosis mild-moderate;cognitive-linguistic disorder;dysarthria (P) -LS Rehab Potential/Prognosis good (P) -LS SLC Criteria for Skilled Therapy Interventions Met yes (P) -LS Functional Impact functional impact in social situations;functional impact in ADLs;difficulty communicating in an emergency;difficulty in expressing complex messages;restrictions in personal and social life (P) -LS Recommendations Therapy Frequency (HYDRAULIC ENGINEER SLC) 5 days per week (P) -LS Predicted Duration Therapy Intervention (Days) 2 weeks (P) -LS User Lockwood (r) = Recorded By, (t) = Taken By, (c) = Cosigned By Initials Name Effective Dates LS Yumi Singh, Speech Therapy Student 01/29/25 - EDUCATION The patient has been educated in the following areas: Cognitive Impairment Communication Impairment. HYDRAULIC ENGINEER GOALS Row Name 04/02/25 1100 Patient will demonstrate functional communication skills for return to discharge environment [place] Independently (P) -LS Time frame 2 weeks (P) -LS HYDRAULIC ENGINEER Diagnostic Treatment Patient will participate in further assessment in the following areas motor speech;higher-level cognitive-linguistic;clarification of baseline cognitive communication status (P) -LS Time Frame (Diagnostic) 1 week (P) -LS Progress/Outcomes (Additional Goal 1, HYDRAULIC ENGINEER) new goal (P) -LS User Lockwood (r) = Recorded By, (t) = Taken By, (c) = Cosigned By Initials Name Provider Type Yumi Oleary Speech Therapy Student HYDRAULIC ENGINEER Student Time Calculation: Time Calculation- HYDRAULIC ENGINEER Row Name 04/02/25 1241 Time Calculation- HYDRAULIC ENGINEER HYDRAULIC ENGINEER Start Time 1100 (P) -LS HYDRAULIC ENGINEER Received On 04/02/25 (P) -LS Untimed Charges 08241-BL Eval Speech and Production w/ Language Minutes 20 (P) -LS 39430-HD Eval Oral Pharyng Swallow Minutes 40 (P) -LS Total Minutes Untimed Charges Total Minutes 60 (P) -LS Total Minutes 60 (P) -LS User Lockwood (r) = Recorded By, (t) = Taken By, (c) = Cosigned By Initials Name Provider Type Yumi Oleary, Speech Therapy Student HYDRAULIC ENGINEER Student Therapy Charges for Today Code Description Service Date Service Provider Modifiers Qty [id number] HC ST EVAL SPEECH AND PROD W LANG 2 04/02/2025 Yumi Singh Speech Therapy Student GN [id number] EVAL ORAL PHARYNG SWALLOW 3 04/02/2025 Yumi Singh Speech Therapy Student GN 1 Yumi Mccain Speech Therapy Student 04/02/2025 Cosigned by Denice Alva MS CCC-HYDRAULIC ENGINEER at 04/02/2025 1:08 PM EDT Associated attestation - Denice Alva MS CCC-HYDRAULIC ENGINEER - 04/02/2025 1:08 PM EDT Denice Alva, MS [facility]-HYDRAULIC ENGINEER * Therapy Evaluation - Wendi Boswell, PT - 04/02/2025 10:50 AM EDT Images from the original note were not included. Patient Name: Regine Anguiano : 1955 Today's Date: 04/02/2025 Admit Date: 03/31/2025 Visit Dx: ICD-10-CM ICD-9-CM 1. Dysphagia, unspecified type R13.10 787.20 Patient Active Problem List Diagnosis Seizure Aspiration pneumonitis -aspiration pneumonitis versus pneumonia Acute hypoxemic respiratory failure -noted from outside hospital where she was intubated. Alcohol dependence with withdrawal delirium -presented with seizures concerning for potential alcohol withdrawal Anemia -uncertain etiology or chronicity No past medical history on file. No past surgical history on file. General Information Row Name 04/02/25 1316 Physical Therapy Time and Intention Document Type evaluation -KE Mode of Treatment physical therapy;co-treatment -KE Row Name 04/02/25 1316 General Information Patient Profile Reviewed yes -KE Prior Level of Function -- Pt limited historian. Per chart review has RW but is a limited ambulator, lives with who provides assist to bathroom, no community mobility. -KE Existing Precautions/Restrictions other (see comments);fall;seizures gonsalez, significant visual deficits (R eye>L), CIWA -KE Barriers to Rehab medically complex;previous functional deficit;cognitive status;visual deficit -KE Row Name 04/02/25 1316 Living Environment Current Living Arrangements home -KE People in Home spouse -KE Row Name 04/02/25 1316 Home Main Entrance Number of Stairs, Main Entrance two per CR -KE Row Name 04/02/25 1316 Cognition Orientation Status (Cognition) oriented x 3 -KE Row Name 04/02/25 1316 Safety Issues/Impairments Affecting Functional Mobility Safety Issues Affecting Function (Mobility) ability to follow commands;awareness of need for assistance;safety precaution awareness;safety precautions follow- through/compliance;insight into deficits/self-awareness;sequencing abilities;problem-solving;judgment -KE Impairments Affecting Function (Mobility) balance;cognition;coordination;endurance/activity tolerance;motor planning;postural/trunk control;strength;visual/perceptual -KE Cognitive Impairments, Mobility Safety/Performance attention;awareness, need for assistance;safety precaution awareness;safety precaution follow-through;insight into deficits/self-awareness;problem-solving/reasoning;sequencing abilities -KE User Lockwood (r) = Recorded By, (t) = Taken By, (c) = Cosigned By Initials Name Provider Type Wendi Flowers PT Physical Therapist Mobility Row Name 04/02/25 1319 Bed Mobility Bed Mobility supine-sit -KE Supine-Sit [place] (Bed Mobility) moderate assist (50% patient effort);2 person assist;verbal cues -KE Assistive Device (Bed Mobility) bed rails;head of bed elevated;repositioning sheet -KE Comment, (Bed Mobility) VC/TCs for sequencing -KE Row Name 04/02/25 1319 Bed-Chair Transfer Bed-Chair [place] (Transfers) maximum assist (25% patient effort);2 person assist;verbal cues -KE Assistive Device (Bed-Chair Transfers) other (see comments) B UE support -KE Comment, (Bed-Chair Transfer) attempted initial t/f w/ FWW, pt unable to sequence req return to sitand use of B UE support for stand pivot to chair -KE Row Name 04/02/25 1319 Sit-Stand Transfer Sit-Stand [place] (Transfers) moderate assist (50% patient effort);2 person assist;verbal cues-KE Assistive Device (Sit-Stand Transfers) other (see comments) B UE support -KE User Lockwood (r) = Recorded By, (t) = Taken By, (c) = Cosigned By Initials Name Provider Type Wendi Flowers PT Physical Therapist Obj/Interventions Row Name 04/02/25 1320 Range of Motion Comprehensive General Range of Motion bilateral lower extremity ROM WFL -KE Row Name 04/02/25 1320 Strength Comprehensive (MMT) General Manual Muscle Testing (MMT) Assessment lower extremity strength deficits identified -KE Comment, General Manual Muscle Testing (MMT) Assessment B LE grossly 3+/5 -KE Row Name 04/02/25 1320 Balance Balance Assessment sitting static balance;sitting dynamic balance;standing static balance;standing dynamic balance -KE Static Sitting Balance contact guard -KE Dynamic Sitting Balance minimal assist -KE Position, Sitting Balance unsupported -KE Static Standing Balance moderate assist;2-person assist -KE Dynamic Standing Balance maximum assist;2-person assist -KE Position/Device Used, Standing Balance supported -KE Balance Interventions sitting;sit to stand;supported;static;dynamic;standing -KE Comment, Balance posterior lean - Row Name 04/02/25 1320 Sensory Assessment (Somatosensory) Sensory Assessment (Somatosensory) unable/difficult to assess -KE User Lockwood (r) = Recorded By, (t) = Taken By, (c) = Cosigned By Initials Name Provider Type Wendi Flowers, PT Physical Therapist Goals/Plan Row Name 04/02/25 132 Bed Mobility Goal 1 (PT) Activity/Assistive Device (Bed Mobility Goal 1, PT) sit to supine/supine to sit -KE [place] Level/Cues Needed (Bed Mobility Goal 1, PT) minimum assist (75% or more patient effort) -KE Time Frame (Bed Mobility Goal 1, PT) short term goal (STG);5 days -KE Progress/Outcomes (Bed Mobility Goal 1, PT) new goal - Row Name 04/02/25 132 Transfer Goal 1 (PT) Activity/Assistive Device (Transfer Goal 1, PT) rey-hi-zsdwh/pkjih-xl-gpp;uxe-gb-jhloo/fwspj-uz-dqz-KE [place] Level/Cues Needed (Transfer Goal 1, PT) minimum assist (75% or more patient effort) -KE Time Frame (Transfer Goal 1, PT) senior living goal (LTG);10 days -KE Progress/Outcome (Transfer Goal 1, PT) new goal - Row Name 04/02/25 1326 Gait Training Goal 1 (PT) Activity/Assistive Device (Gait Training Goal 1, PT) gait (walking locomotion);assistive device use;improve balance and speed;walker, rolling -KE [place] Level (Gait Training Goal 1, PT) minimum assist (75% or more patient effort) -KE Distance (Gait Training Goal 1, PT) 50 -KE Time Frame (Gait Training Goal 1, PT) senior living goal (LTG);10 days -KE Progress/Outcome (Gait Training Goal 1, PT) new goal - Row Name 04/02/25 1328 Therapy Assessment/Plan (PT) Planned Therapy Interventions (PT) balance training;bed mobility training;home exercise program;gait training;neuromuscular re-education;patient/family education;postural re-education;ROM (range of motion);stair training;strengthening;stretching;transfer training - User Lockwood (r) = Recorded By, (t) = Taken By, (c) = Cosigned By Initials Name Provider Type Wendi Flowers, PT Physical Therapist Clinical Impression Row Name 04/02/25 1321 Pain Additional Documentation Pain Scale: FACES Pre/Post-Treatment (Group) - Row Name 04/02/25 1321 Pain Scale: FACES Pre/Post-Treatment Pain: FACES Scale, Pretreatment 2-->hurts little bit -KE Posttreatment Pain Rating 2-->hurts little bit -KE Row Name 04/02/25 1321 Plan of Care Review Plan of Care Reviewed With patient -KE Outcome Evaluation PT eval complete. Pt presents with balance deficits, generalized weakness, cognitive impairments, limited safety awareness, impaired functional transfers, and decreased functional endurance warranting IPPT. Pt assisted in SPT w/ B UE support and MaxAx2. PT rec SNF, will continue to monitor progress. - Row Name 04/02/25 1321 Therapy Assessment/Plan (PT) Patient/Family Therapy Goals Statement (PT) did not state -KE Rehab Potential (PT) fair -KE Criteria for Skilled Interventions Met (PT) yes;skilled treatment is necessary;meets criteria -KE Therapy Frequency (PT) daily -KE Predicted Duration of Therapy Intervention (PT) 10 days - Row Name 04/02/25 1321 Vital Signs Pre Systolic BP Rehab 110 -KE Pre Treatment Diastolic BP 56 -KE Post Systolic BP Rehab 121 -KE Post Treatment Diastolic BP 60 -KE Pretreatment Heart Rate (beats/min) 64 -KE Posttreatment Heart Rate (beats/min) 71 -KE Pre SpO2 (%) 91 -KE O2 Delivery Pre Treatment room air -KE O2 Delivery Intra Treatment room air -KE Post SpO2 (%) 91 -KE O2 Delivery Post Treatment room air -KE Pre Patient Position Supine -KE Intra Patient Position Standing -KE Post Patient Position Sitting - Row Name 04/02/25 1321 Positioning and Restraints Pre-Treatment Position in bed -KE Post Treatment Position chair -KE In Chair notified nsg;reclined;waffle cushion;on mechanical lift sling;call light within reach;encouraged to call for assist;exit alarm on;legs elevated;heels elevated;RUE elevated;LUE elevated - User Lockwood (r) = Recorded By, (t) = Taken By, (c) = Cosigned By Initials Name Provider Type Wendi Flowers PT Physical Therapist Outcome Measures Row Name 04/02/25 1324 How much help from another person do you currently need... Turning from your back to your side while in flat bed without using bedrails? 3 -KE Moving from lying on back to sitting on the side of a flat bed without bedrails? 2 -KE Moving to and from a bed to a chair (including a wheelchair)? 2 -KE Standing up from a chair using your arms (e.g., wheelchair, bedside chair)? 2 -KE Climbing 3-5 steps with a railing? 1 -KE To walk in hospital room? 2 -KE AM-PAC 6 Clicks Score (PT) 12 -KE Highest Level of Mobility Goal Move to Chair/Commode-4 -KE Row Name 04/02/25 1324 Functional Assessment Outcome Measure Options AM-PAC 6 Clicks Basic Mobility (PT) - User Lockwood (r) = Recorded By, (t) = Taken By, (c) = Cosigned By Initials Name Provider Type Wendi Flowers PT Physical Therapist Physical Therapy Education Title: PT OT HYDRAULIC ENGINEER Therapies (In Progress) Topic: Physical Therapy (In Progress) Point: Mobility training (In Progress) Learning Progress Summary Patient Acceptance, E, NR by MATTY at 04/02/2025 1325 Point: Home exercise program (Not Started) Learner Progress: Not documented in this visit. Point: Body mechanics (In Progress) Learning Progress Summary Patient Acceptance, E, NR by MATTY at 04/02/2025 1325 Point: Precautions (In Progress) Learning Progress Summary Patient Acceptance, E, NR by MATTY at 04/02/2025 1325 User Lockwood Initials Effective Dates Name Provider Type Discipline 04/28/23 - Wendi Boswell PT Physical Therapist PT PT Recommendation and Plan Recommended discharge disposition is based on the functional assessment performed by PT/OT/Speech therapy (as applicable) and may not reflect the medical necessity determined by your provider or services covered by an individual patient's insurance plan or patient resource. Planned Therapy Interventions (PT): balance training, bed mobility training, home exercise program,gait training, neuromuscular re-education, patient/family education, postural re-education, ROM (range of motion), stair training, strengthening, stretching, transfer training Therapy Frequency (PT): daily Outcome Evaluation: PT eval complete. Pt presents with balance deficits, generalized weakness, cognitive impairments, limited safety awareness, impaired functional transfers, and decreased functionalendurance warranting IPPT. Pt assisted in SPT w/ B UE support and MaxAx2. PT rec SNF, will continueto monitor progress. Time Calculation: PT Evaluation Complexity History, PT Evaluation Complexity: 3 or more personal factors and/or comorbidities Examination of Body Systems (PT Eval Complexity): total of 3 or more elements Clinical Presentation (PT Evaluation Complexity): evolving Clinical Decision Making (PT Evaluation Complexity): moderate complexity Overall Complexity (PT Evaluation Complexity): moderate complexity PT Charges Row Name 04/02/25 1325 Time Calculation Start Time 1050 -KE PT Received On 04/02/25 -KE PT Goal Re-Cert Due Date 04/12/25 -KE Untimed Charges PT Eval/Re-eval Minutes 52 -KE Total Minutes Untimed Charges Total Minutes 52 -KE Total Minutes 52 -KE User Lockwood (r) = Recorded By, (t) = Taken By, (c) = Cosigned By Initials Name Provider Type Wendi Flowers PT Physical Therapist Therapy Charges for Today Code Description Service Date Service Provider Modifiers Qty [id number] HC PT EVAL MOD COMPLEXITY 4 04/02/2025 Wendi Boswell, PT GP 1 PT G-Codes Outcome Measure Options: AM-PAC 6 Clicks Basic Mobility (PT) AM-PAC 6 Clicks Score (PT): 12 PT Discharge Summary Anticipated Discharge Disposition (PT): [facility] facility Wendi Boswell PT 04/02/2025 * Therapy Evaluation - Shelly Jones OT - 04/02/2025 10:50 AM EDT Images from the original note were not included. Patient Name: Regine Anguiano : 1955 Today's Date: 04/02/2025 Admit Date: 03/31/2025 Visit Dx: ICD-10-CM ICD-9-CM 1. Dysphagia, unspecified type R13.10 787.20 Patient Active Problem List Diagnosis Seizure Aspiration pneumonitis -aspiration pneumonitis versus pneumonia Acute hypoxemic respiratory failure -noted from outside hospital where she was intubated. Alcohol dependence with withdrawal delirium -presented with seizures concerning for potential alcohol withdrawal Anemia -uncertain etiology or chronicity No past medical history on file. No past surgical history on file. General Information Row Name 04/02/25 1117 OT Time and Intention Document Type evaluation - Mode of Treatment co-treatment;occupational therapy - Row Name 04/02/25 1117 General Information Patient Profile Reviewed yes - Prior Level of Function -- Pt limited historian. Per chart review has RW but is a limited ambulator, lives with who provides assist to bathroom, no community mobility. - Existing Precautions/Restrictions left;other (see comments) wallace visual deficits - Barriers to Rehab medically complex;previous functional deficit;visual deficit - Row Name 04/02/25 111 Living Environment Current Living Arrangements home - People in Home spouse - Row Name 04/02/25 1117 Home Main Entrance Number of Stairs, Main Entrance other (see comments) per chart review, home has 2 steps to enter - Row Name 04/02/25 1117 Stairs Within Home, Primary Number of Stairs, Within Home, Primary none - Row Name 04/02/25 1117 Cognition Orientation Status (Cognition) oriented x 3 - Row Name 04/02/25 1117 Safety Issues/Impairments Affecting Functional Mobility Safety Issues Affecting Function (Mobility) ability to follow commands;awareness of need for assistance;insight into deficits/self-awareness;safety precaution awareness;safety precautions follow-through/compliance;sequencing abilities - Impairments Affecting Function (Mobility) balance;cognition;coordination;endurance/activity tolerance;motor planning;postural/trunk control;strength - Cognitive Impairments, Mobility Safety/Performance attention;awareness, need for assistance;impulsivity;insight into deficits/self-awareness;safety precaution awareness;safety precaution follow-through;sequencing abilities - User Lockwood (r) = Recorded By, (t) = Taken By, (c) = Cosigned By Initials Name Provider Type Shelly Jones OT Occupational Therapist Mobility/ADL's Row Name 04/02/25 1311 Bed Mobility Bed Mobility supine-sit - Supine-Sit [place] (Bed Mobility) moderate assist (50% patient effort);2 person assist;verbal cues - Assistive Device (Bed Mobility) bed rails;head of bed elevated;repositioning sheet - Row Name 04/02/25 131 Transfers Transfers sit-stand transfer;stand-sit transfer;bed-chair transfer - Row Name 04/02/251310 Bed-Chair Transfer Bed-Chair [place] (Transfers) maximum assist (25% patient effort);2 person assist;verbal cues - Assistive Device (Bed-Chair Transfers) other (see comments) BUE support - Comment, (Bed-Chair Transfer) stand pivot transfer, VCs for sequencing. Required assist at hips - Row Name 04/02/251310 Sit-Stand Transfer Sit-Stand [place] (Transfers) moderate assist (50% patient effort);2 person assist;verbal cues- Assistive Device (Sit-Stand Transfers) other (see comments) BUE support - Comment, (Sit-Stand Transfer) Posterior lean in standing - Row Name 04/02/251310 Stand-Sit Transfer Stand-Sit [place] (Transfers) moderate assist (50% patient effort);2 person assist;verbal cues- Row Name 04/02/25 131 Functional Mobility Patient was able to Ambulate no, other medical factors prevent ambulation - Reason Patient was unable to Ambulate -- mod A x2 for STS from EOB, max A x2 for stand pivot transfer to chair - Row Name 04/02/25 131 Activities of Daily Living BADL Assessment/Intervention lower body dressing - Row Name 04/02/25 131 Lower Body Dressing Assessment/Training [place] Level (Lower Body Dressing) don;socks - Position (Lower Body Dressing) edge of bed sitting - User Lockwood (r) = Recorded By, (t) = Taken By, (c) = Cosigned By Initials Name Provider Type Shelly Jones OT Occupational Therapist Obj/Interventions Row Name 04/02/251316 Sensory Assessment (Somatosensory) Sensory Assessment (Somatosensory) UE sensation intact - Sensory Assessment formal testing limited d/t difficulty with sequencing and following directions - Row Name 04/02/251316 Vision Assessment/Intervention Visual Impairment/Limitations other (see comments);visual/perceptual impairments present per chart review, 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 Pt unable to identify objects duringformal vision assessment - Row Name 04/02/25 1317 Range of Motion Comprehensive General Range of Motion upper extremity range of motion deficits identified - Comment, General Range of Motion L shoulder ROM WNF, R shoulder ROM ~90 degrees. Passive B UE ROM WNL - Row Name 04/02/25 1317 Strength Comprehensive (MMT) General Manual Muscle Testing (MMT) Assessment upper extremity strength deficits identified - Comment, General Manual Muscle Testing (MMT) Assessment B UE grossly 3+/5 - Row Name 04/02/25 1317 Motor Skills Motor Skills coordination - Coordination gross motor deficit;moderate impairment formal assessment limited d/t vision impairment - Row Name 04/02/25 1317 Balance Balance Assessment sitting static balance;sitting dynamic balance;standing static balance;standing dynamic balance - Static Sitting Balance contact guard - Dynamic Sitting Balance minimal assist - Position, Sitting Balance unsupported - Static Standing Balance moderate assist;2-person assist - Dynamic Standing Balance maximum assist;2-person assist - Position/Device Used, Standing Balance supported;other (see comments) BUE support - Balance Interventions sitting;standing;sit to stand;supported;static;dynamic - User Lockwood (r) = Recorded By, (t) = Taken By, (c) = Cosigned By Initials Name Provider Type [facility] Shelly Jones OT Occupational Therapist Goals/Plan Row Name 04/02/25 1329 Bed Mobility Goal 1 (OT) Activity/Assistive Device (Bed Mobility Goal 1, OT) sit to supine/supine to sit - [place] Level/Cues Needed (Bed Mobility Goal 1, OT) contact guard required - Time Frame (Bed Mobility Goal 1, OT) senior living goal (LTG);10 days - Progress/Outcomes (Bed Mobility Goal 1, OT) new goal - Row Name 04/02/25 1329 Transfer Goal 1 (OT) Activity/Assistive Device (Transfer Goal 1, OT) hpt-rw-ovshg/iugpg-ye-jvu;uhm-zh-zaeas/swhzd-tr-gch- [place] Level/Cues Needed (Transfer Goal 1, OT) minimum assist (75% or more patient effort) - Time Frame (Transfer Goal 1, OT) short term goal (STG);5 days - Progress/Outcome (Transfer Goal 1, OT) new goal - Row Name 04/02/25 1329 Grooming Goal 1 (OT) Activity/Device (Grooming Goal 1, OT) hair care;oral care;wash face, hands - [place] (Grooming Goal 1, OT) minimum assist (75% or more patient effort) -CH Time Frame (Grooming Goal 1, OT) senior living goal (LTG);10 days -CH Progress/Outcome (Grooming Goal 1, OT) new goal - Row Name 04/02/25 1329 Therapy Assessment/Plan (OT) Planned Therapy Interventions (OT) activity tolerance training;BADL retraining;functional balance retraining;occupation/activity based interventions;patient/caregiver education/training;ROM/therapeutic exercise;strengthening exercise;transfer/mobility retraining;adaptive equipment training - User Lockwood (r) = Recorded By, (t) = Taken By, (c) = Cosigned By Initials Name Provider Type [facility] Shelly Jones OT Occupational Therapist Clinical Impression Row Name 04/02/25 132 Pain Scale: FACES Pre/Post-Treatment Pain: FACES Scale, Pretreatment 2-->hurts little bit - Posttreatment Pain Rating 2-->hurts little bit - Row Name 04/02/25 1321 Plan of Care Review Outcome Evaluation OT eval complete. Pt presents with deficits including generalized weakness, decreased functional mobility, decreased activity tolerance, and decreased balance warranting IPOT services. Stand pivot transfer with max A x2, completed sit to stand with mod A x2. Rec d/c to SNF. - Row Name 04/02/25 1328 Therapy Assessment/Plan (OT) Patient/Family Therapy Goal Statement (OT) Return home - Rehab Potential (OT) fair - Criteria for Skilled Therapeutic Interventions Met (OT) skilled treatment is necessary;yes - Therapy Frequency (OT) daily - Predicted Duration of Therapy Intervention (OT) 10 days - Row Name 04/02/25 1322 Therapy Plan Review/Discharge Plan (OT) Anticipated Discharge Disposition (OT) [facility] facility - Row Name 04/02/25 1320 Vital Signs Pre Systolic BP Rehab 110 -CH Pre Treatment Diastolic BP 56 -CH Post Systolic BP Rehab 121 -CH Post Treatment Diastolic BP 60 -CH Pretreatment Heart Rate (beats/min) 64 -CH Posttreatment Heart Rate (beats/min) 71 -CH Pre SpO2 (%) 91 -CH O2 Delivery Pre Treatment room air -CH Post SpO2 (%) 91 -CH O2 Delivery Post Treatment room air -CH Pre Patient Position Supine -CH Intra Patient Position Standing -CH Post Patient Position Sitting -CH Row Name 04/02/25 1325 Positioning and Restraints Pre-Treatment Position in bed -CH Post Treatment Position chair - User Lockwood (r) = Recorded By, (t) = Taken By, (c) = Cosigned By Initials Name Provider Type Shelly Vital, DARNELL Occupational Therapist Outcome Measures Row Name 04/02/25 1332 How much help from another is currently needed... Putting on and taking off regular lower body clothing? 1 -CH Bathing (including washing, rinsing, and drying) 1 -CH Toileting (which includes using toilet bed monreal or urinal) 2 -CH Putting on and taking off regular upper body clothing 2 -CH Taking care of personal grooming (such as brushing teeth) 2 -CH Eating meals 2 -CH AM-PAC 6 Clicks Score (OT) 10 - Row Name 04/02/25 1324 How much help from another person do you currently need... Turning from your back to your side while in flat bed without using bedrails? 3 -KE Moving from lying on back to sitting on the side of a flat bed without bedrails? 2 -KE Moving to and from a bed to a chair (including a wheelchair)? 2 -KE Standing up from a chair using your arms (e.g., wheelchair, bedside chair)? 2 -KE Climbing 3-5 steps with a railing? 1 -KE To walk in hospital room? 2 -KE AM-PAC 6 Clicks Score (PT) 12 -KE Highest Level of Mobility Goal Move to Chair/Commode-4 -KE Row Name 04/02/25 1332 04/02/25 1324 Functional Assessment Outcome Measure Options AM-PAC 6 Clicks Daily Activity (OT) - AM-PAC 6 Clicks Basic Mobility (PT)-KE User Lockwood (r) = Recorded By, (t) = Taken By, (c) = Cosigned By Initials Name Provider Type Wendi Flowers, PT Physical Therapist Shelly Vital OT Occupational Therapist Occupational Therapy Education Title: PT OT HYDRAULIC ENGINEER Therapies (In Progress) Topic: Occupational Therapy (In Progress) Point: ADL training (In Progress) Learning Progress Summary Patient Acceptance, E,TB, NR by at 04/02/2025 1050 Point: Precautions (In Progress) Learning Progress Summary Patient Acceptance, E,TB, NR by at 04/02/2025 1050 Point: Body mechanics (In Progress) Learning Progress Summary Patient Acceptance, E,TB, NR by at 04/02/2025 1050 User Lockwood Initials Effective Dates Name Provider Type [facility] 03/18/25 - Shelly Jones OT Occupational Therapist OT OT Recommendation and Plan Recommended discharge disposition is based on the functional assessment performed by PT/OT/Speech therapy (as applicable) and may not reflect the medical necessity determined by your provider or services covered by an individual patient's insurance plan or patient resource. Planned Therapy Interventions (OT): activity tolerance training, BADL retraining, functional balance retraining, occupation/activity based interventions, patient/caregiver education/training, ROM/therapeutic exercise, strengthening exercise, transfer/mobility retraining, adaptive equipment training Therapy Frequency (OT): daily Plan of Care Review Outcome Evaluation: OT eval complete. Pt presents with deficits including generalized weakness, decreased functional mobility, decreased activity tolerance, and decreased balance warranting IPOT services. Stand pivot transfer with max A x2, completed sit to stand with mod A x2. Rec d/c to SNF. Time Calculation: Evaluation Complexity (OT) Review Occupational Profile/Medical/Therapy History Complexity: expanded/moderate complexity Assessment, Occupational Performance/Identification of Deficit Complexity: 3-5 performance deficits Clinical Decision Making Complexity (OT): detailed assessment/moderate complexity Overall Complexity of Evaluation (OT): moderate complexity Time Calculation- OT Row Name 04/02/25 1337 Time Calculation- OT OT Start Time 1050 -CH OT Received On 04/02/25 -CH OT Goal Re-Cert Due Date 04/12/25 -CH Untimed Charges OT Eval/Re-eval Minutes 48 -CH Total Minutes Untimed Charges Total Minutes 48 -CH Total Minutes 48 -CH User Lockwood (r) = Recorded By, (t) = Taken By, (c) = Cosigned By Initials Name Provider Type Shelly Jones OT Occupational Therapist Therapy Charges for Today Code Description Service Date Service Provider Modifiers Qty [id number] HC OT EVAL MOD COMPLEXITY 4 04/02/2025 Shelly Jones OT GO 1 Shelly Jones OT 04/02/2025 * Therapy Evaluation - Av Varghese MS CCC-HYDRAULIC ENGINEER - 04/01/2025 4:13 PM EDT Images from the original note were not included. Acute Care - Speech Language Pathology Swallow Initial Evaluation [facility] Clinical Swallow Evaluation Patient Name: Regine Anguiano : 1955 Today's Date: 04/01/2025 Admit Date: 03/31/2025 Visit Dx: ICD-10-CM ICD-9-CM 1. Dysphagia, unspecified type R13.10 787.20 Problem List[1] No past medical history on file. No past surgical history on file. HYDRAULIC ENGINEER Recommendation and Plan Recommended discharge disposition is based on the functional assessment performed by PT/OT/Speech therapy (as applicable) and may not reflect the medical necessity determined by your provider or services covered by an individual patient's insurance plan or patient resource. HYDRAULIC ENGINEER Swallowing Diagnosis: oral dysphagia, R/O pharyngeal dysphagia (04/01/251544) HYDRAULIC ENGINEER Diet Recommendation: NPO (04/01/251544) Recommended Precautions and Strategies: upright posture during/after eating, general aspiration precautions (04/01/251544) HYDRAULIC ENGINEER Rec. for Method of Medication Administration: meds whole, with puree (essential meds only) (04/01/251544) Monitor for Signs of Aspiration: yes, notify HYDRAULIC ENGINEER if any concerns (04/01/251544) Recommended Diagnostics: reassess via clinical swallow evaluation (04/01/251544) Swallow Criteria for Skilled Therapeutic Interventions Met: demonstrates skilled criteria () Anticipated Discharge Disposition (HYDRAULIC ENGINEER): [facility] facility (04/01/251544) Rehab Potential/Prognosis, Swallowing: adequate, monitor progress closely (04/01/251544) Oral Care Recommendations: Oral Care BID/PRN, Suction toothbrush (04/01/251544) Demonstrates Need for Referral to Another Service: speech therapy, other (see comments) (Pt would benefit from full [facility] eval) (04/01/251544) Progress: no change SWALLOW EVALUATION (Last 72 Hours) HYDRAULIC ENGINEER Adult Swallow Evaluation Row Name 04/01/251544 Rehab Evaluation Document Type evaluation -RS Subjective Information no complaints -RS Patient Observations alert -RS Patient/Family/Caregiver Comments/Observations Pt is very confused, in constant motion in bed -RS Patient Effort fair -RS Symptoms Noted During/After Treatment none -RS Oral Care oral rinse provided -RS General Information Patient Profile Reviewed yes -RS Pertinent History Of Current Problem Pt is a 70 yoF w PMHx ETOH abuse who presented to OSH after being found down unresponsive. Pt with witnessed seizure activity and intubated. She was transferred to [facility] for higher level of care. SDH found on MRI per [facility] notes, no indication for surgical intervention. Pt was extubated at approximately 1500 today. 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 -RS Precautions/Limitations, Hearing hearing impairment, bilaterally;difficult to assess -RS Prior Level of Function-Communication unknown -RS Prior Level of Function-Swallowing unknown;other (see comments) no previous HYDRAULIC ENGINEER hx, pt u/a to indicate -RS Plans/Goals Discussed with patient -RS Pain Additional Documentation Pain Scale: FACES Pre/Post-Treatment (Group) -RS Pain Scale: FACES Pre/Post-Treatment Pain: FACES Scale, Pretreatment 2-->hurts little bit -RS Posttreatment Pain Rating 2-->hurts little bit -RS Oral Motor Structure and Function Dentition Assessment teeth are in poor condition;missing teeth -RS Secretion Management wet vocal quality -RS Mucosal Quality sticky -RS Volitional Swallow unable to elicit -RS Volitional Cough weak;reduced respiratory support -RS Oral Musculature and Cranial Nerve Assessment Oral Motor General Assessment generalized oral motor weakness -RS General Eating/Swallowing Observations Respiratory Support Currently in Use nasal cannula -RS Eating/Swallowing Skills fed by HYDRAULIC ENGINEER;unable to perform self-feeding -RS Positioning During Eating upright in bed -RS Utensils Used spoon;cup;straw -RS Consistencies Trialed thin liquids;ice chips;pureed -RS Respiratory Respiratory Status WFL -RS Date of Intubation 03/31-04/01 -RS Clinical Swallow Eval Oral Prep Phase impaired -RS Oral Transit impaired -RS Oral Residue WFL -RS Pharyngeal Phase suspected pharyngeal impairment -RS Esophageal Phase unremarkable -RS Oral Prep Concerns Oral Prep Concerns incomplete or weak lip closure around spoon -RS Incomplete or Weak Lip Closure Around Spoon all consistencies -RS Oral Prep Concerns, Comment u/a to achieve closure around straw or pull thins -RS Oral Transit Concerns Oral Transit Concerns delayed initiation of bolus transit -RS Delayed Intiation of Bolus Transit all consistencies -RS Pharyngeal Phase Concerns Pharyngeal Phase Concerns multiple swallows;wet vocal quality;cough;throat clear -RS Wet Vocal Quality thin;other (see comments) and ice -RS Multiple Swallows thin;other (see comments) and ice -RS Cough thin;other (see comments) and ice -RS Throat Clear thin;other (see comments) and ice -RS Pharyngeal Phase Concerns, Comment Voice is essentially aphonic and coupled with mental status, intelligibility is low. Pt may have essential meds in puree, HYDRAULIC ENGINEER will re-assess and determine need for instrumental prior to PO diet -RS Swallowing Quality of Life Assessment Education and counseling provided Signs of aspiration;Silent aspiration -RS HYDRAULIC ENGINEER Evaluation Clinical Impression HYDRAULIC ENGINEER Swallowing Diagnosis oral dysphagia;R/O pharyngeal dysphagia -RS Functional Impact risk of aspiration/pneumonia -RS Rehab Potential/Prognosis, Swallowing adequate, monitor progress closely -RS Swallow Criteria for Skilled Therapeutic Interventions Met demonstrates skilled criteria -RS Recommendations HYDRAULIC ENGINEER Diet Recommendation NPO -RS Recommended Diagnostics reassess via clinical swallow evaluation -RS Recommended Precautions and Strategies upright posture during/after eating;general aspiration precautions -RS Oral Care Recommendations Oral Care BID/PRN;Suction toothbrush -RS HYDRAULIC ENGINEER Rec. for Method of Medication Administration meds whole;with puree essential meds only -RS Monitor for Signs of Aspiration yes;notify HYDRAULIC ENGINEER if any concerns -RS Anticipated Discharge Disposition (HYDRAULIC ENGINEER) [facility] facility -RS Demonstrates Need for Referral to Another Service speech therapy;other (see comments) Pt would benefit from full SLC eval -RS User Lockwood (r) = Recorded By, (t) = Taken By, (c) = Cosigned By Initials Name Effective Dates RS Av Varghese, [facility]-HYDRAULIC ENGINEER 02/24/23 - EDUCATION The patient has been educated in the following areas: Dysphagia (Swallowing Impairment) Oral Care/Hydration NPO rationale. Time Calculation: Time Calculation- HYDRAULIC ENGINEER Row Name 04/01/25 1611 Time Calculation- HYDRAULIC ENGINEER HYDRAULIC ENGINEER Start Time 1545 -RS HYDRAULIC ENGINEER Received On 04/01/25 -RS Untimed Charges 73498-MQ Eval Oral Pharyng Swallow Minutes 40 -RS Total Minutes Untimed Charges Total Minutes 40 -RS Total Minutes 40 -RS User Lockwood (r) = Recorded By, (t) = Taken By, (c) = Cosigned By Initials Name Provider Type RS Av Varghese MS CCC-HYDRAULIC ENGINEER Speech and Language Pathologist Therapy Charges for Today Code Description Service Date Service Provider Modifiers Qty [id number] HC ST EVAL ORAL PHARYNG SWALLOW 3 04/01/2025 Av Varghese MS CCC-SLP GN 1 MS JAY JAY Barnes 04/01/2025 [1] Patient Active Problem List Diagnosis Seizure Aspiration pneumonitis -aspiration pneumonitis versus pneumonia Acute hypoxemic respiratory failure -noted from outside hospital where she was intubated. Alcohol dependence with withdrawal delirium -presented with seizures concerning for potential alcohol withdrawal Anemia -uncertain etiology or chronicity * Case Management/Social Work - Yeimi Padron MSW - 04/01/2025 3:19 PM EDT Images from the original note were not included. Discharge Planning Assessment [facility] Patient Name: Regine Anguiano Today's Date: 04/01/2025 Admit Date: 03/31/2025 Plan: Home Discharge Needs Assessment Row Name 04/01/25 1501 Living Environment People in Home spouse Name(s) of People in Home - Kwasi Anguiano Current Living Arrangements home Potentially Unsafe Housing Conditions none In the past 12 months has the electric, gas, oil, or water Hapzing threatened to shut off services in your home? No Primary Care Provided by self;spouse/significant other Provides Primary Care For no one, unable/limited ability to care for self Family Caregiver if Needed none Quality of Family Relationships helpful Able to Return to Prior Arrangements yes Transportation Needs In the past 12 months, has lack of transportation kept you from medical appointments or from getting medications? no In the past 12 months, has lack of transportation kept you from meetings, work, or from getting things needed for daily living? No Food Insecurity Within the past 12 months, you worried that your food would run out before you got the money to buymore. Never true Within the past 12 months, the food you bought just didn't last and you didn't have money to get more. Never true Transition Planning Patient/Family Anticipates Transition to home with family Patient/Family Anticipated Services at Transition none Transportation Anticipated health plan transportation Discharge Needs Assessment Readmission Within the Last 30 Days no previous admission in last 30 days Equipment Currently Used at Home walker, rolling Concerns to be Addressed discharge planning Do you want help finding or keeping work or a job? I do not need or want help Do you want help with school or training? For example, starting or completing job training or getting a high school diploma, GED or equivalent No Equipment Needed After Discharge -- to be determined Discharge Coordination/Progress Pt lives in [place] with her spouse. Pt doesn't have a PCP.Pt's only DME is a rolling walker. Pt's spouse is unsure if pt will allow any help at discharge. He stated he has his own health issues and is unable to be a caregiver to pt. He reportedly assists her to the bathroom and said she doesn't get around well at all. 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 He said pt hasn't been out of their home in 7 years and her only transportation is via EMS when needed. He said their home has a deck on the front of their home with 2 steps. He said pt will need EMS transportaiton at discharge. Discharge Plan Row Name 04/01/25 2429 Plan Plan Home Patient/Family in Agreement with Plan yes Plan Comments Pt is intubated and information was provided by pt's spouse. Pt's discharge needs arenot yet know, however pt's spouse stated pt is likely to decline services at discharge. He stated pt drinks a fifth of vodka daily and has for 10 years. He indicated pt has a remote history of depression, but details were unclear. He state pt would benefit from resources for Meals on Wheels, which SW can assist with. He said pt may need assisted living in the future. SW and CM will continue to follow for discharge planning needs. Final Discharge Disposition Code 01 - home or self-care Continued Care and Services - Admitted Since 03/31/2025 No active coordination exists. Demographic Summary Row Name 04/01/25 1369 General Information Admission Type inpatient Arrived From home Preferred Language Indonesian General Information Comments No PCP. Pt hasn't been to see a PCP in approximately 6 years. Functional Status Row Name 04/01/25 1500 Functional Status Usual Activity Tolerance poor Current Activity Tolerance poor Physical Activity On average, how many days per week do you engage in moderate to strenuous exercise (like a brisk walk)? 0 days On average, how many minutes do you engage in exercise at this level? 0 min Number of minutes of exercise per week 0 Employment/ Employment/ Comments Pt has Medicare A/B. Pt's spouse isn't sure if she has Part D coverage. He stated their preferred home pharmacy is [facility] in [place]. Psychosocial No documentation. Abuse/Neglect No documentation. Legal No documentation. Substance Abuse No documentation. Patient Forms No documentation. RICHARD Argueta * Case Management/Social Work - Yeimi Padron MSW - 04/01/2025 11:14 AM EDT Continued Stay Note [facility] Patient Name: Regine Anguiano Today's Date: 04/01/2025 Admit Date: 03/31/2025 Plan: IDP pending Discharge Plan Row Name 04/01/25 1106 Plan Plan IDP pending Patient/Family in Agreement with Plan unable to assess Plan Comments VENTUAR attempted to contact pt's sposue this morning as pt in intubated. VENTURA attempted to call pt's spouse twice this morning without success. VENTURA left a message requesting call back. Per chart review, pt lives in [facility] with her spouse, Kwasi Anguiano. VENTURA and CM will remain available to assist with discharge planning needs. Discharge Codes No documentation. RICHARD Argueta documented in this encounter Plan of Treatment Upcoming Encounters Date Type Department Care Team (Late st Contact Info) Description 09/19/2025 2:30 PM EDT Office Visit [facility] [address] [place] [address] Radha Morales, KILN REPAIRER [address] [place] [phone] documented as of this encounter Procedures Procedure Name Priority Date/Time Associated Diagnosis Comments POCT GLUCOSE FINGERSTICK Routine 04/08/2025 4:27 PM EDT POCT GLUCOSE FINGERSTICK Routine 04/08/2025 8:21 AM EDT POCT GLUCOSE FINGERSTICK Routine 04/07/2025 4:52 PM EDT HYDRAULIC ENGINEER FEES FIBEROPTIC ENDO EVAL SWALLOW Routine 04/07/2025 11:54 AM EDT POCT GLUCOSE FINGERSTICK Routine 04/07/2025 11:33 AM EDT POCT GLUCOSE FINGERSTICK Routine 04/07/2025 7:44 AM EDT SCANNED - TELEMETRY 04/07/2025 4 :38 AM EDT POCT GLUCOSE FINGERSTICK Routine 04/06/2025 7:47 PM EDT POTASSIUM Timed 04/06/2025 7:13 PM EDT POCT GLUCOSE FINGERSTICK Routine 04/06/2025 4:01 PM EDT XR SHOULDER 2+ VW RIGHT Routine 04/06/2025 12:11 PM EDT POCT GLUCOSE FINGERSTICK Routine 04/06/2025 11:52 AM EDT CBC WITH AUTO DIFFERENTIAL Routine 04/06/2025 9:07 AM EDT CBC AND DIFFERENTIAL Routine 04/06/2025 9:07 AM EDT COMPREHENSIVE METABOLIC PANEL Routine 04/06/2025 9:07 AM EDT POCT GLUCOSE FINGERSTICK Routine 04/06/2025 7:32 AM EDT POCT GLUCOSE FINGERSTICK Routine 04/06/2025 6:41 AM EDT SCANNED - TELEMETRY 04/06/2025 1 :45 AM EDT POCT GLUCOSE FINGERSTICK Routine 04/06/2025 12:04 AM EDT POCT GLUCOSE FINGERSTICK Routine 04/05/2025 7:39 PM EDT POCT GLUCOSE FINGERSTICK Routine 04/05/2025 5:00 PM EDT POCT GLUCOSE FINGERSTICK Routine 04/05/2025 11:11 AM EDT POCT GLUCOSE FINGERSTICK Routine 04/05/2025 7:48 AM EDT POCT GLUCOSE FINGERSTICK Routine 04/05/2025 5:54 AM EDT SCANNED - TELEMETRY 04/04/2025 9 :09 PM EDT POCT GLUCOSE FINGERSTICK Routine 04/04/2025 8:27 PM EDT POCT GLUCOSE FINGERSTICK Routine 04/04/2025 4:54 PM EDT POCT GLUCOSE FINGERSTICK Routine 04/04/2025 11:25 AM EDT POCT GLUCOSE FINGERSTICK Routine 04/04/2025 8:31 AM EDT SCANNED - TELEMETRY 04/04/2025 8 :11 AM EDT SCANNED - TELEMETRY 04/04/2025 8 :11 AM EDT POCT GLUCOSE FINGERSTICK Routine 04/04/2025 5:25 AM EDT POCT GLUCOSE FINGERSTICK Routine 04/04/2025 1:05 AM EDT POCT GLUCOSE FINGERSTICK Routine 04/03/2025 8:04 PM EDT POCT GLUCOSE FINGERSTICK Routine 04/03/2025 5:24 PM EDT POCT GLUCOSE FINGERSTICK Routine 04/03/2025 11:44 AM EDT AMMONIA STAT 04/03/2025 10:36 AM EDT HYDRAULIC ENGINEER FEES FIBEROPTIC ENDO EVAL SWALLOW Routine 04/03/2025 8:23 AM EDT POCT GLUCOSE FINGERSTICK Routine 04/03/2025 5:21 AM EDT CBC (NO DIFF) Routine 04/03/2025 3:49 AM EDT PHOSPHORUS Routine 04/03/2025 3:49 AM EDT MAGNESIUM Routine 04/03/2025 3:49 AM EDT BASIC METABOLIC PANEL Routine 04/03/2025 3:49 AM EDT POCT GLUCOSE FINGERSTICK Routine 04/02/2025 11:38 PM EDT POCT GLUCOSE FINGERSTICK Routine 04/02/2025 5:48 PM EDT POCT GLUCOSE FINGERSTICK Routine 04/02/2025 11:57 AM EDT CBC (NO DIFF) Routine 04/02/2025 8:10 AM EDT PHOSPHORUS Add-On 04/02/2025 8:10 AM EDT MAGNESIUM Add-On 04/02/2025 8:10 AM EDT BASIC METABOLIC PANEL Routine 04/02/2025 8:10 AM EDT POCT GLUCOSE FINGERSTICK Routine 04/02/2025 5:23 AM EDT POCT GLUCOSE FINGERSTICK Routine 04/01/2025 11:20 PM EDT POCT GLUCOSE FINGERSTICK Routine 04/01/2025 5:34 PM EDT POCT GLUCOSE FINGERSTICK Routine 04/01/2025 11:[address] HEAD WO CONTRAST STAT 04/01/2025 1 1:40 AM EDT POCT GLUCOSE FINGERSTICK Routine 04/01/2025 6:12 AM EDT XR CHEST 1 VW Routine 04/01/2025 5:04 AM EDT BLOOD GAS, ARTERIAL W/CO-OXIMETRY Routine 04/01/2025 3:40 AM EDT PHOSPHORUS Routine 04/01/2025 1:02 AM EDT MAGNESIUM Routine 04/01/2025 1:02 AM EDT COMPREHENSIVE METABOLIC PANEL Timed 04/01/2025 1:02 AM EDT CBC WITH AUTO DIFFERENTIAL Routine 04/01/2025 1:01 AM EDT POCT GLUCOSE FINGERSTICK Routine 04/01/2025 12:04 AM EDT MRI BRAIN WO CONTRAST Routine 03/31/2025 10:23 PM EDT POCT GLUCOSE FINGERSTICK Routine 03/31/2025 6:04 PM EDT TYPE AND SCREEN STAT 03/31/2025 3:22 PM EDT FOLATE STAT 03/31/2025 3:22 PM EDT VITAMIN B12 STAT 03/31/2025 3:22 PM EDT EEG AWAKE OR DROWSY PORTABLE STAT 03/31/2025 2:20 PM EDT MRSA DNA PROBE Routine 03/31/2025 2:09 PM EDT XR ABDOMEN KUB STAT 03/31/2025 12:58 PM EDT BLOOD CULTURE STAT 03/31/2025 12:40 PM EDT BLOOD CULTURE STAT 03/31/2025 12:28 PM EDT TSH RFX ON ABNORMAL TO FREE T4 STAT 03/31/2025 12:04 PM EDT ABORH 2ND SPECIMEN VERIFICATION STAT 03/31/2025 12:04 PM EDT PROCALCITONIN STAT 03/31/2025 12:04 PM EDT CBC WITH AUTO DIFFERENTIAL STAT 03/31/2025 12:04 PM EDT IRON PROFILE STAT 03/31/2025 12:04 PM EDT RETICULOCYTES STAT 03/31/2025 12:04 PM EDT T4, FREE STAT 03/31/2025 12:04 PM EDT PHOSPHORUS STAT 03/31/2025 12:04 PM EDT B-TYPE NATRIURETIC PEPTIDE STAT 03/31/2025 12:04 PM EDT MAGNESIUM STAT 03/31/2025 12:04 PM EDT LACTIC ACID, PLASMA STAT 03/31/2025 1 2:04 PM EDT HEMOGLOBIN A1C STAT 03/31/2025 12:04 PM EDT FERRITIN STAT 03/31/2025 12:04 PM EDT CK STAT 03/31/2025 12:04 PM EDT AMMONIA STAT 03/31/2025 12:04 PM EDT COMPREHENSIVE METABOLIC PANEL STAT 03/31/2025 12:04 PM EDT URINALYSIS, MICROSCOPIC ONLY STAT 03/31/2025 11:33 AM EDT URINALYSIS W/ MICROSCOPIC IF INDICATED (NO CULTURE) STAT 03/31/2025 11:33 AM EDT RESPIRATORY CULTURE Routine 03/31/2025 1 1:33 AM EDT BLOOD GAS, ARTERIAL W/CO-OXIMETRY Routine 03/31/2025 11:12 AM EDT XR CHEST 1 VW STAT 03/31/2025 10:58 AM EDT POCT GLUCOSE FINGERSTICK Routine 03/31/2025 10:23 AM EDT XR OUTSIDE CHEST Routine 03/31/2025 12:[address] OUTSIDE HEAD Routine 03/31/2025 12:[address] OUTSIDE HEAD Routine 03/31/2025 12:[address] OUTSIDE NECK Routine 03/31/2025 12:00 AM EDT documented in this encounter Results * POC Glucose Once (04/08/2025 4:27 PM EDT) [facility] Signature Glucose 105 70 - 130 mg/dL 04/08/2025 4:31 PM EDT [facility] Comment:Serial Number: [id number]: [id number] Blood 04/08/2025 4:27 PM EDT 04/08/2025 4:31 PM EDT us Jagruti Goins MD POINT OF CARE TEST ORDERABLES Final Result Performing Organization Address City/[facility]/ZIP Co de Phone Number [facility]
[address] [place] [address], [place] [phone] * POC Glucose Once (04/08/2025 8:21 AM EDT) Glucose 90 70 - 130 mg/dL 04/08/2025 8:24 AM EDT [facility] Comment:Serial Number: [id number]: [id number] Blood 04/08/2025 8:21 AM EDT 04/08/2025 8:24 AM EDT us Jagruti Goins MD POINT OF CARE TEST ORDERABLES Final Result Performing Organization Address City/[facility] Co de Phone Number [facility]
[address] [place] [address], [place] [phone] * POC Glucose Once (04/07/2025 4:52 PM EDT) Glucose 96 70 - 130 mg/dL 04/07/2025 4:54 PM EDT [facility] Comment:Serial Number: [id number]: [id number] Blood 04/07/2025 4:52 PM EDT 04/07/2025 4:54 PM EDT us Jagruti Goins MD POINT OF CARE TEST ORDERABLES Final Result Performing Organization Address City/[facility] Co de Phone Number [facility]
[address] [place] [address], * HYDRAULIC ENGINEER FEES - Fiberoptic Endo Eval Swallow (04/07/2025 11:54 AM EDT) Narrative SYSTEMGENERATED, DOCUMENTATION - 04/07/2025 11:54 AM EDT This procedure was auto-finalized with no dictation required. us Jagruti Goins MD HYDRAULIC ENGINEER ORDERABLES Final Result * POC Glucose Once (04/07/2025 11:33 AM EDT) Glucose 104 70 - 130 mg/dL 04/07/2025 11:37 AM EDT [facility] Comment:Serial Number: [id number]: [id number] Blood 04/07/2025 11:3 3 AM EDT 04/07/2025 11:37 AM EDT us Jagruti Goins MD POINT OF CARE TEST ORDERABLES Final Result Performing Organization Address City/[facility]/ZIP Co de Phone Number [facility]
[address] [place] [address], * POC Glucose Once (04/07/2025 7:44 AM EDT) Glucose 88 70 - 130 mg/dL 04/07/2025 7:48 AM EDT [facility] Comment:Serial Number: [id number]: [id number] Blood 04/07/2025 7:44 AM EDT 04/07/2025 7:48 AM EDT us Jagruti Goins MD POINT OF CARE TEST ORDERABLES Final Result [facility]
[address] [place] [address], * Telemetry Scan (04/07/2025 4:38 AM EDT) [facility] Onbase ECG ORDERABLES Final Result * POC Glucose Once (04/06/2025 7:47 PM EDT) Glucose 117 70 - 130 mg/dL 04/06/2025 7:49 PM EDT [facility] Comment:Serial Number: [id number]: [id number] Blood 04/06/2025 7:47 PM EDT 04/06/2025 7:49 PM EDT us Jagruti Goins MD POINT OF CARE TEST ORDERABLES Final Result [facility]
[address] [place] [address], [place] [phone] * Potassium (04/06/2025 7:13 PM EDT) [facility] Signature Potassium 4.1 3.5 - 5.2 mmol/L 04/06/2025 7:58 PM EDT [facility] Blood Venipuncture / Unknown 04/06/2025 7:13 PM EDT 04/06/2025 7:37 PM EDT us Jagruti Goins MD LAB BLOOD ORDERABLES Final Re sult Performing Organization Address [facility] Co de Phone Number [facility]
[address] [place] [address], [place] [phone] * (ABNORMAL) POC Glucose Once (04/06/2025 4:01 PM EDT) Glucose 132(H) 70 - 130 mg/dL 04/06/2025 4:03 PM EDT [facility] Comment:Serial Number: [id number]: [id number] Blood 04/06/2025 4:01 PM EDT 04/06/2025 4:03 PM EDT us Jagruti Goins MD POINT OF CARE TEST ORDERABLES Final Result Performing Organization Address City/[facility]/ZIP Co de Phone Number [facility]
[address] [place] [address], * XR Shoulder 2+ View Right (04/06/2025 12:11 PM EDT) Anatomical Region Laterality Modality Upper Extremities, Shoulder Right Radi ographic Imaging 04/06/2025 12:4 4 PM EDT Impressions 04/06/2025 12:46 PM EDT Impression: No acute fracture or traumatic malalignment. There is a bandlike linear opacity in the mid/lower right lung which may reflect atelectasis or scarring or less likely pneumonia. Correlate with chest x-ray. Electronically Signed: Shakir Trinh MD 04/06/2025 12:46 PM EDT Workstation ID: [id number] Narrative 04/06/2025 12:46 PM EDT XR SHOULDER 2+ VW RIGHT Date of Exam: 04/06/2025 11:54 AM EDT Indication: pain after a fall. Comparison: None available. Findings: No acute fracture or traumatic malalignment. No high-grade narrowing of the subacromial space. No acute findings in the partially imaged right chest. There is a bandlike linear opacity in the mid/lower right lung which may reflect atelectasis or scarring or less likely pneumonia. Procedure Note Shakir Trinh MD - 04/06/2025 XR SHOULDER 2+ VW RIGHT Date of Exam: 04/06/2025 11:54 AM EDT Indication: pain after a fall. Comparison: None available. Findings: No acute fracture or traumatic malalignment. No high-grade narrowing ofthe subacromial space. No acute findings in the partially imaged rightchest. There is a bandlike linear opacity in the mid/lower right lungwhich may reflect atelectasis or scarring or less likely pneumonia. IMPRESSION: Impression: No acute fracture or traumatic malalignment. There is a bandlike linear opacity in the mid/lower right lung which mayreflect atelectasis or scarring or less likely pneumonia. Correlate withchest x-ray. Electronically Signed: Shakir Trinh MD 04/06/2025 12:46 PM EDT Workstation ID: [id number] us Jagruti Goins MD IMG DIAGNOSTIC IMAGING ORDERA BLES Final Result * POC Glucose Once (04/06/2025 11:52 AM EDT) [facility] Glucose 115 70 - 130 mg/dL 04/06/2025 11:55 AM EDT [facility] Comment:Serial Number: [id number]: [id number] Blood 04/06/2025 11:5 2 AM EDT 04/06/2025 11:55 AM EDT Jagruti Goins MD POINT OF CARE TEST ORDERABLES Final Result [facility]
[address] [place] [address], * (ABNORMAL) CBC Auto Differential (04/06/2025 9:07 AM EDT) [facility] WBC 2.94(L) 3.40 - 10.80 10*3/mm3 04/06/2025 9:23 AM EDT [facility] RBC 3.47(L) 3.77 - 5.28 10*6/mm3 04/06/2025 9:23 AM EDT [facility] Hemoglobin 10.4(L) 12.0 - 15.9 g/dL 04/06/2025 9:23 AM EDT [facility] Hematocrit 31.4(L) 34.0 - 46.6 % 04/06/2025 9:23 AM EDT [facility] MCV 90.5 79.0 - 97.0 fL 04/06/2025 9:23 AM EDT [facility] MCH 30.0 26.6 - 33.0 pg 04/06/2025 9:23 AM EDT [facility] MCHC 33.1 31.5 - 35.7 g/dL 04/06/2025 9:23 AM EDT [facility] RDW 17.1(H) 12.3 - 15.4 % 04/06/2025 9:23 AM [facility] RDW-SD 56.0(H) 37.0 - 54.0 fl 04/06/2025 9:23 AM [facility] MPV 9.0 6.0 - 12.0 fL 04/06/2025 9:23 AM [facility] Platelets 129(L) 140 - 450 10*3/mm3 04/06/2025 9:23 AM [facility] Neutrophil % 46.4 42.7 - 76.0 % 04/06/2025 9:23 AM [facility] Lymphocyte % 38.4 19.6 - 45.3 % 04/06/2025 9:23 AM [facility] Monocyte % 12.2(H) 5.0 - 12.0 % 04/06/2025 9:23 AM [facility] Eosinophil % 2.0 0.3 - 6.2 % 04/06/2025 9:23 AM [facility] Basophil % 0.7 0.0 - 1.5 % 04/06/2025 9:23 AM [facility] Immature Grans % 0.3 0.0 - 0.5 % 04/06/2025 9:23 AM [facility] Neutrophils, Absolute 1.36(L) 1.70 - 7.00 10*3/mm3 04/06/2025 9:23 AM [facility] Lymphocytes, Absolute 1.13 0.70 - 3.10 10*3/mm3 04/06/2025 9:23 AM [facility] Monocytes, Absolute 0.36 0.10 - 0.90 10*3/mm3 04/06/2025 9:23 AM [facility] Eosinophils, Absolute 0.06 0.00 - 0.40 10*3/mm3 04/06/2025 9:23 AM [facility] Basophils, Absolute 0.02 0.00 - 0.20 10*3/mm3 04/06/2025 9:23 AM EDT [facility] Immature Grans, Absolute 0.01 0.00 - 0.05 10*3/mm3 04/06/2025 9:23 AM EDT [facility] nRBC 0.0 0.0 - 0.2 /100 WBC 04/06/2025 9:23 AM EDT [facility] Blood Venipuncture / Unknown 04/06/2025 9:07 AM EDT 04/06/2025 9:16 AM EDT us Susan Alvarado MD LAB BLOOD ORDERABLES Final Resul t [facility]
[address] [place] [address], * (ABNORMAL) Comprehensive Metabolic Panel (04/06/2025 9:07 AM EDT) Glucose 116(H) 65 - 99 mg/dL 04/06/2025 9:35 AM EDT [facility] BUN 7.6(L) 8.0 - 23.0 mg/dL 04/06/2025 9:35 AM EDT [facility] Creatinine 0.73 0.57 - 1.00 mg/dL 04/06/2025 9:35 AM EDT [facility] Sodium 139 136 - 145 mmol/L 04/06/2025 9:35 AM EDT [facility] Potassium 3.2(L) 3.5 - 5.2 mmol/L 04/06/2025 9:35 AM EDT [facility] Chloride 105 98 - 107 mmol/L 04/06/2025 9:35 AM EDT [facility] CO2 23.2 22.0 - 29.0 mmol/L 04/06/2025 9:35 AM EDT [facility] Calcium 9.3 8.6 - 10.5 mg/dL 04/06/2025 9:35 AM EDT [facility] Total Protein 6.8 6.0 - 8.5 g/dL 04/06/2025 9:35 AM T [facility] Albumin 3.5 3.5 - 5.2 g/dL 04/06/2025 9:35 AM [facility] ALT (SGPT) 6 1 - 33 U/L 04/06/2025 9:35 AM [facility] AST (SGOT) 20 1 - 32 U/L 04/06/2025 9:35 AM T [facility] Alkaline Phosphatase 145(H) 39 - 117 U/L 04/06/2025 9:35 AM [facility] Total Bilirubin 0.7 0.0 - 1.2 mg/dL 04/06/2025 9:35 AM [facility] Globulin 3.3 gm/dL 04/06/2025 9:35 AM [facility] Comment:Calculated Result A/G Ratio 1.1 g/dL 04/06/2025 9:35 AM [facility] BUN/Creatinine Ratio 10.4 7.0 - 25.0 04/06/2025 9:35 AM [facility] Anion Gap 10.8 5.0 - 15.0 mmol/L 04/06/2025 9:35 AM [facility] eGFR 89.7 >60.0 mL/min/1.7 3 04/06/2025 9:35 AM [facility] Blood Venipuncture / Unknown 04/06/2025 9:07 AM EDT 04/06/2025 9:15 AM [facility] - 04/06/2025 9:35 AM EDT GFR Categories in Chronic Kidney Disease (CKD) GFR Category GFR (mL/min/1.73) Interpretation G1 90 or greater Normal or high (1) G2 60-89 Mild decrease (1) G3a 45-59 Mild to moderate decrease G3b 30-44 Moderate to severe decrease G4 15-29 Severe decrease G5 14 or less Kidney failure (1)In the absence of evidence of kidney disease, neither GFR category G1 or G2 fulfill the criteria for CKD. eGFR calculation 2020 CKD-EPI creatinine equation, which does not include race as a factor Susan Alvarado MD LAB BLOOD ORDERABLES Final Resul t Performing Organization Address City/[facility] Co de Phone Number [facility]
[address] [place] [address], * POC Glucose Once (04/06/2025 7:32 AM EDT) Glucose 91 70 - 130 mg/dL 04/06/2025 7:34 AM EDT [facility] Comment:Serial Number: [id number]: [id number] Blood 04/06/2025 7:32 AM EDT 04/06/2025 7:34 AM EDT Jagruti Goins MD POINT OF CARE TEST ORDERABLES Final Result Performing Organization Address [facility] Co de Phone Number [facility]
[address] [place] [address], * POC Glucose Once (04/06/2025 6:41 AM EDT) Glucose 128 70 - 130 mg/dL 04/06/2025 6:44 AM EDT [facility] Comment:Serial Number: [id number]: [id number] Blood 04/06/2025 6:41 AM EDT 04/06/2025 6:44 AM EDT Jagruti Goins MD POINT OF CARE TEST ORDERABLES Final Result Performing Organization Address [facility] Co de Phone Number [facility]
[address] [place] [address], * Telemetry Scan (04/06/2025 1:45 AM EDT) [facility] Onbase ECG ORDERABLES Final Result * POC Glucose Once (04/06/2025 12:04 AM EDT) Glucose 129 70 - 130 mg/dL 04/06/2025 12:07 AM EDT [facility] Comment:Serial Number: [id number]: [id number] Blood 04/06/2025 12:0 4 AM EDT 04/06/2025 12:07 AM EDT Susan Alvarado MD POINT OF CARE TEST ORDERABLES Fi nal Result [facility]
[address] [place] [address], * POC Glucose Once (04/05/2025 7:39 PM EDT) Glucose 105 70 - 130 mg/dL 04/05/2025 7:41 PM EDT [facility] Comment:Serial Number: [id number]: [id number] Blood 04/05/2025 7:39 PM EDT 04/05/2025 7:41 PM EDT Susan Alvarado MD POINT OF CARE TEST ORDERABLES Fi nal Result [facility]
[address] [place] [address], * (ABNORMAL) POC Glucose Once (04/05/2025 5:00 PM EDT) Glucose 155(H) 70 - 130 mg/dL 04/05/2025 5:03 PM EDT [facility] Comment:Serial Number: [id number]: [id number] Blood 04/05/2025 5:00 PM EDT 04/05/2025 5:03 PM EDT Susan Alvarado MD POINT OF CARE TEST ORDERABLES Fi nal Result Performing Organization Address [facility] de Phone Number [facility]
[address] [place] [address], * POC Glucose Once (04/05/2025 11:11 AM EDT) Glucose 111 70 - 130 mg/dL 04/05/2025 11:14 AM EDT [facility] Comment:Serial Number: [id number]: [id number] Blood 04/05/2025 11:1 1 AM EDT 04/05/2025 11:14 AM EDT Susan Alvarado MD POINT OF CARE TEST ORDERABLES Fi nal Result Performing Organization Address [facility] de Phone Number [facility]
[address] [place] [address], * POC Glucose Once (04/05/2025 7:48 AM EDT) Glucose 88 70 - 130 mg/dL 04/05/2025 7:58 AM EDT [facility] Comment:Serial Number: [id number]: [id number] Blood 04/05/2025 7:48 AM EDT 04/05/2025 7:58 AM EDT Susan Alvarado MD POINT OF CARE TEST ORDERABLES Fi nal Result Performing Organization Address [facility] de Phone Number [facility]
[address] [place] [address], * POC Glucose Once (04/05/2025 5:54 AM EDT) Glucose 101 70 - 130 mg/dL 04/05/2025 5:56 AM EDT [facility] Comment:Serial Number: [id number]: [id number] Blood 04/05/2025 5:54 AM EDT 04/05/2025 5:56 AM EDT Susan Alvarado MD POINT OF CARE TEST ORDERABLES Fi nal Result [facility]
[address] [place] [address], * Telemetry Scan (04/04/2025 9:09 PM EDT) [facility] Onbase ECG ORDERABLES Final Result * POC Glucose Once (04/04/2025 8:27 PM EDT) Glucose 88 70 - 130 mg/dL 04/04/2025 8:30 PM EDT [facility] Comment:Serial Number: [id number]: [id number] Blood 04/04/2025 8:27 PM EDT 04/04/2025 8:30 PM EDT Pk Mckeon MD POINT OF CARE TEST ORDERABLE S Final Result Performing Organization Address [facility] Co de Phone Number [facility]
[address] [place] [address], * POC Glucose Once (04/04/2025 4:54 PM EDT) Glucose 130 70 - 130 mg/dL 04/04/2025 4:57 PM EDT [facility] Comment:Serial Number: [id number]: [id number] Blood 04/04/2025 4:54 PM EDT 04/04/2025 4:57 PM EDT us Pk Mckeon MD POINT OF CARE TEST ORDERABLE S Final Result [facility]
[address] [place] [address], * POC Glucose Once (04/04/2025 11:25 AM EDT) Glucose 104 70 - 130 mg/dL 04/04/2025 11:36 AM EDT [facility] Comment:Serial Number: [id number]: [id number] Blood 04/04/2025 11:2 5 AM EDT 04/04/2025 11:36 AM EDT us Pk Mckeon MD POINT OF CARE TEST ORDERABLE S Final Result [facility]
[address] [place] [address], * POC Glucose Once (04/04/2025 8:31 AM EDT) Glucose 107 70 - 130 mg/dL 04/04/2025 8:33 AM EDT [facility] Comment:Serial Number: [id number]: [id number] Blood 04/04/2025 8:31 AM EDT 04/04/2025 8:33 AM EDT us Pk Mckeon MD POINT OF CARE TEST ORDERABLE S Final Result [facility]
[address] [place] [address], * Telemetry Scan (04/04/2025 8:11 AM EDT) [facility] Onbase ECG ORDERABLES Final Result * Telemetry Scan (04/04/2025 8:11 AM EDT) [facility] Onbase ECG ORDERABLES Final Result * POC Glucose Once (04/04/2025 5:25 AM EDT) Glucose 114 70 - 130 mg/dL 04/04/2025 5:27 AM EDT [facility] Comment:Serial Number: [id number]: [id number] Blood 04/04/2025 5:25 AM EDT 04/04/2025 5:27 AM EDT Pk Mckeon MD POINT OF CARE TEST ORDERABLE S Final Result [facility]
[address] [place] [address], * POC Glucose Once (04/04/2025 1:05 AM EDT) Glucose 109 70 - 130 mg/dL 04/04/2025 1:07 AM EDT [facility] Comment:Serial Number: [id number]: [id number] Blood 04/04/2025 1:05 AM EDT 04/04/2025 1:07 AM EDT us Pk Mckeon MD POINT OF CARE TEST ORDERABLE S Final Result [facility]
[address] [place] [address], * (ABNORMAL) POC Glucose Once (04/03/2025 8:04 PM EDT) Glucose 145(H) 70 - 130 mg/dL 04/03/2025 8:09 PM EDT [facility] Comment:Serial Number: [id number]: [id number] Blood 04/03/2025 8:04 PM EDT 04/03/2025 8:09 PM EDT us Pk Mckeon MD POINT OF CARE TEST ORDERABLE S Final Result Performing Organization Address [facility] de Phone Number [facility]
[address] [place] [address], * POC Glucose Once (04/03/2025 5:24 PM EDT) Glucose 123 70 - 130 mg/dL 04/03/2025 5:28 PM EDT [facility] Comment:Serial Number: [id number]: [id number] Blood 04/03/2025 5:24 PM EDT 04/03/2025 5:28 PM EDT us Pk Mckeon MD POINT OF CARE TEST ORDERABLE S Final Result Performing Organization Address [facility] de Phone Number [facility]
[address] [place] [address], * POC Glucose Once (04/03/2025 11:44 AM EDT) Glucose 118 70 - 130 mg/dL 04/03/2025 11:46 AM EDT [facility] Comment:Serial Number: [id number]: [id number] Blood 04/03/2025 11:4 4 AM EDT 04/03/2025 11:46 AM EDT us Pk Mckeon MD POINT OF CARE TEST ORDERABLE S Final Result Performing Organization Address [facility] de Phone Number [facility]
[address] [place] [address], * Ammonia (04/03/2025 10:36 AM EDT) Ammonia 47 11 - 51 umol/L 04/03/2025 1:04 PM EDT [facility] Blood Venipuncture / Unknown 04/03/2025 10:36 AM EDT 04/03/2025 10:53 AM EDT Dmitry Nicolas MD LAB BLOOD ORDERABLES Final Result Performing Organization Address City/[facility]/ZIP Co de Phone Number [facility]
[address] [place] [address], * HYDRAULIC ENGINEER FEES - Fiberoptic Endo Eval Swallow (04/03/2025 8:23 AM EDT) Narrative SYSTEMGENERATED, DOCUMENTATION - 04/03/2025 8:23 AM EDT This procedure was auto-finalized with no dictation required. us Dmitry Nicolas MD HYDRAULIC ENGINEER ORDERABLES Final Resu lt * POC Glucose Once (04/03/2025 5:21 AM EDT) Glucose 100 70 - 130 mg/dL 04/03/2025 5:22 AM EDT [facility] Comment:Serial Number: [id number]: [id number] Blood 04/03/2025 5:21 AM EDT 04/03/2025 5:22 AM EDT Pk Mckeon MD POINT OF CARE TEST ORDERABLE S Final Result Performing Organization Address City/[facility]/ZIP Co de Phone Number [facility]
[address] [place] [address], * (ABNORMAL) CBC (No Diff) (04/03/2025 3:49 AM EDT) WBC 2.76(L) 3.40 - 10.80 10*3/mm3 04/03/2025 4:06 AM EDT [facility] RBC 2.96(L) 3.77 - 5.28 10*6/mm3 04/03/2025 4:06 AM EDT [facility] Hemoglobin 9.3(L) 12.0 - 15.9 g/dL 04/03/2025 4:06 AM EDT [facility] Hematocrit 28.6(L) 34.0 - 46.6 % 04/03/2025 4:06 AM EDT [facility] MCV 96.6 79.0 - 97.0 fL 04/03/2025 4:06 AM EDT [facility] MCH 31.4 26.6 - 33.0 pg 04/03/2025 4:06 AM EDT [facility] MCHC 32.5 31.5 - 35.7 g/dL 04/03/2025 4:06 AM EDT [facility] RDW 17.8(H) 12.3 - 15.4 % 04/03/2025 4:06 AM EDT [facility] RDW-SD 60.4(H) 37.0 - 54.0 fl 04/03/2025 4:06 AM EDT [facility] MPV 9.9 6.0 - 12.0 fL 04/03/2025 4:06 AM EDT [facility] Platelets 68(L) 140 - 450 10*3/mm3 04/03/2025 4:06 AM EDT [facility] Blood Line / Unknown 04/03/2025 3: 49 AM EDT 04/03/2025 4:01 AM EDT Alonso Cameron KILN REPAIRER LAB BLOOD ORDERABLES Nazanin l Result [facility]
[address] [place] [address], * (ABNORMAL) Basic Metabolic Panel (04/03/2025 3:49 AM EDT) Glucose 114(H) 65 - 99 mg/dL 04/03/2025 4:15 AM EDT [facility] BUN 7.6(L) 8.0 - 23.0 mg/dL 04/03/2025 4:15 AM EDT [facility] Creatinine 0.79 0.57 - 1.00 mg/dL 04/03/2025 4:15 AM EDT [facility] Sodium 138 136 - 145 mmol/L 04/03/2025 4:15 AM EDT [facility] Potassium 3.8 3.5 - 5.2 mmol/L 04/03/2025 4:15 AM EDT [facility] Chloride 106 98 - 107 mmol/L 04/03/2025 4:15 AM EDT [facility] CO2 22.7 22.0 - 29.0 mmol/L 04/03/2025 4:15 AM EDT [facility] Calcium 9.0 8.6 - 10.5 mg/dL 04/03/2025 4:15 AM EDT [facility] BUN/Creatinine Ratio 9.6 7.0 - 25.0 04/03/2025 4:15 AM EDT [facility] Anion Gap 9.3 5.0 - 15.0 mmol/L 04/03/2025 4:15 AM EDT [facility] eGFR 81.6 >60.0 mL/min/1.7 3 04/03/2025 4:15 AM EDT [facility] Blood Line / Unknown 04/03/2025 3: 49 AM EDT 04/03/2025 3:55 AM EDT [facility] - 04/03/2025 4:15 AM EDT GFR Categories in Chronic Kidney Disease (CKD) GFR Category GFR (mL/min/1.73) Interpretation G1 90 or greater Normal or high (1) G2 60-89 Mild decrease (1) G3a 45-59 Mild to moderate decrease G3b 30-44 Moderate to severe decrease G4 15-29 Severe decrease G5 14 or less Kidney failure (1)In the absence of evidence of kidney disease, neither GFR category G1 or G2 fulfill the criteria for CKD. eGFR calculation 2020 CKD-EPI creatinine equation, which does not include race as a factor us Alonso Cameron KILN REPAIRER LAB BLOOD ORDERABLES Nazanin stiles Result [facility]
[address] [place] [address], * Phosphorus (04/03/2025 3:49 AM EDT) Phosphorus 3.2 2.5 - 4.5 mg/dL 04/03/2025 4:15 AM EDT [facility] Blood Line / Unknown 04/03/2025 3: 49 AM EDT 04/03/2025 3:55 AM EDT Alonso Cameron APRN LAB BLOOD ORDERABLES Nazanin l Result [facility]
[address] [place] [address], * Magnesium (04/03/2025 3:49 AM EDT) Magnesium 2.0 1.6 - 2.4 mg/dL 04/03/2025 4:15 AM EDT [facility] Blood Line / Unknown 04/03/2025 3: 49 AM EDT 04/03/2025 3:55 AM EDT Dmitry Nicolas MD LAB BLOOD ORDERABLES Final Result [facility]
[address] [place] [address], * POC Glucose Once (04/02/2025 11:38 PM EDT) Glucose 117 70 - 130 mg/dL 04/02/2025 11:40 PM EDT [facility] Comment:Serial Number: [id number]: [id number] Blood 04/02/2025 11:3 8 PM EDT 04/02/2025 11:40 PM EDT us Pk Mckeon MD POINT OF CARE TEST ORDERABLE S Final Result Performing Organization Address [facility] de Phone Number [facility]
[address] [place] [address], [place] [phone] * POC Glucose Once (04/02/2025 5:48 PM EDT) Glucose 104 70 - 130 mg/dL 04/02/2025 5:50 PM EDT [facility] Comment:Serial Number: [id number]: [id number] Blood 04/02/2025 5:48 PM EDT 04/02/2025 5:50 PM EDT us Pk Mckeon MD POINT OF CARE TEST ORDERABLE S Final Result Performing Organization Address [facility] de Phone Number [facility]
[address] [place] [address], * POC Glucose Once (04/02/2025 11:57 AM EDT) Glucose 96 70 - 130 mg/dL 04/02/2025 12:00 PM EDT [facility] Comment:Serial Number: [id number]: [id number] Blood 04/02/2025 11:5 7 AM EDT 04/02/2025 12:00 PM EDT us Pk Mckeon MD POINT OF CARE TEST ORDERABLE S Final Result Performing Organization Address [facility] Co de Phone Number [facility]
[address] [place] [address], [place] [phone] * Phosphorus (04/02/2025 8:10 AM EDT) Phosphorus 3.6 2.5 - 4.5 mg/dL 04/02/2025 10:09 AM EDT [facility] Blood Line / Unknown 04/02/2025 8: 10 AM EDT 04/02/2025 8:15 AM EDT Dmitry Nicolas MD LAB BLOOD ORDERABLES Final Result Performing Organization Address City/[facility]/ZIP Co de Phone Number [facility]
[address] [place] [address], * Magnesium (04/02/2025 8:10 AM EDT) Magnesium 1.7 1.6 - 2.4 mg/dL 04/02/2025 10:18 AM EDT [facility] Blood Line / Unknown 04/02/2025 8: 10 AM EDT 04/02/2025 8:15 AM EDT Dmitry Nicolas MD LAB BLOOD ORDERABLES Final Result Performing Organization Address [facility] de Phone Number [facility]
[address] [place] [address], [place] [phone] * (ABNORMAL) Basic Metabolic Panel (04/02/2025 8:10 AM EDT) Glucose 103(H) 65 - 99 mg/dL 04/02/2025 8:42 AM EDT [facility] BUN 9.9 8.0 - 23.0 mg/dL 04/02/2025 8:42 AM EDT [facility] Creatinine 0.78 0.57 - 1.00 mg/dL 04/02/2025 8:42 AM EDT [facility] Sodium 140 136 - 145 mmol/L 04/02/2025 8:42 AM EDT [facility] Potassium 3.9 3.5 - 5.2 mmol/L 04/02/2025 8:42 AM EDT [facility] Chloride 110(H) 98 - 107 mmol/L 04/02/2025 8:42 AM EDT [facility] CO2 21.6(L) 22.0 - 29.0 mmol/L 04/02/2025 8:42 AM EDT [facility] Calcium 9.5 8.6 - 10.5 mg/dL 04/02/2025 8:42 AM EDT [facility] BUN/Creatinine Ratio 12.7 7.0 - 25.0 04/02/2025 8:42 AM EDT [facility] Anion Gap 8.4 5.0 - 15.0 mmol/L 04/02/2025 8:42 AM EDT [facility] eGFR 82.9 >60.0 mL/min/1.7 3 04/02/2025 8:42 AM EDT [facility] Blood Line / Unknown 04/02/2025 8: 10 AM EDT 04/02/2025 8:15 AM EDT [facility] - 04/02/2025 8:42 AM EDT GFR Categories in Chronic Kidney Disease (CKD) GFR Category GFR (mL/min/1.73) Interpretation G1 90 or greater Normal or high (1) G2 60-89 Mild decrease (1) G3a 45-59 Mild to moderate decrease G3b 30-44 Moderate to severe decrease G4 15-29 Severe decrease G5 14 or less Kidney failure (1)In the absence of evidence of kidney disease, neither GFR category G1 or G2 fulfill the criteria for CKD. eGFR calculation 2020 CKD-EPI creatinine equation, which does not include race as a factor Dmitry Nicolas MD LAB BLOOD ORDERABLES Final Result [facility]
[address] [place] [address], * (ABNORMAL) CBC (No Diff) (04/02/2025 8:10 AM EDT) WBC 4.55 3.40 - 10.80 10*3/mm3 04/02/2025 8:40 AM EDT [facility] RBC 3.18(L) 3.77 - 5.28 10*6/mm3 04/02/2025 8:40 AM EDT [facility] Hemoglobin 9.8(L) 12.0 - 15.9 g/dL 04/02/2025 8:40 AM EDT [facility] Hematocrit 30.7(L) 34.0 - 46.6 % 04/02/2025 8:40 AM EDT [facility] MCV 96.5 79.0 - 97.0 fL 04/02/2025 8:40 AM EDT [facility] MCH 30.8 26.6 - 33.0 pg 04/02/2025 8:40 AM EDT [facility] MCHC 31.9 31.5 - 35.7 g/dL 04/02/2025 8:40 AM EDT [facility] RDW 17.8(H) 12.3 - 15.4 % 04/02/2025 8:40 AM EDT [facility] RDW-SD 59.6(H) 37.0 - 54.0 fl 04/02/2025 8:40 AM EDT [facility] MPV 9.5 6.0 - 12.0 fL 04/02/2025 8:40 AM EDT [facility] Platelets 60(L) 140 - 450 10*3/mm3 04/02/2025 8:40 AM EDT [facility] Blood Line / Unknown 04/02/2025 8: 10 AM EDT 04/02/2025 8:15 AM EDT Dmitry Nicolas MD LAB BLOOD ORDERABLES Final Result [facility]
[address] [place] [address], * POC Glucose Once (04/02/2025 5:23 AM EDT) Glucose 104 70 - 130 mg/dL 04/02/2025 5:25 AM EDT [facility] Comment:Serial Number: [id number]: [id number] Blood 04/02/2025 5:23 AM EDT 04/02/2025 5:25 AM EDT us Pk Mckeon MD POINT OF CARE TEST ORDERABLE S Final Result Performing Organization Address City/[facility]/ZIP Co de Phone Number [facility]
[address] [place] [address], * POC Glucose Once (04/01/2025 11:20 PM EDT) Glucose 114 70 - 130 mg/dL 04/01/2025 11:22 PM EDT [facility] Comment:Serial Number: [id number]: [id number] Blood 04/01/2025 11:2 0 PM EDT 04/01/2025 11:22 PM EDT us Pk Mckeon MD POINT OF CARE TEST ORDERABLE S Final Result Performing Organization Address [facility] Co de Phone Number [facility]
[address] [place] [address], * POC Glucose Once (04/01/2025 5:34 PM EDT) Glucose 120 70 - 130 mg/dL 04/01/2025 5:36 PM EDT [facility] Comment:Serial Number: [id number]: [id number] Blood 04/01/2025 5:34 PM EDT 04/01/2025 5:36 PM EDT us Pk Mckeon MD POINT OF CARE TEST ORDERABLE S Final Result Performing Organization Address [facility] Co de Phone Number [facility]
[address] [place] [address], * POC Glucose Once (04/01/2025 11:52 AM EDT) Glucose 128 70 - 130 mg/dL 04/01/2025 11:55 AM EDT [facility] Comment:Serial Number: [id number]: [id number] Blood 04/01/2025 11:5 2 AM EDT 04/01/2025 11:55 AM EDT Pk Mckeon MD POINT OF CARE TEST ORDERABLE S Final Result [facility]
[address] [place] [address], * CT Head Without Contrast (04/01/2025 11:40 AM EDT) Anatomical Region Laterality Modality Head N/A Computed Tomogra phy 04/01/2025 11:4 4 AM EDT Impressions 04/01/2025 11:48 AM EDT Impression: 1.Small residual subdural hematoma is seen overlying the posterior margin of the left occipital region. The hematoma measures up to approximately 2 mm in thickness. The hematoma is stable to mildly decreased when correlated with the prior MRI. There has not been progression since the prior. 2.No additional intracranial hemorrhage is identified. 3.Age-related changes are noted. Electronically Signed: Valdez Ascencio MD 04/01/2025 11:48 AM EDT Workstation ID: [id number] Artie 04/01/2025 11:[address] HEAD WO CONTRAST Date of Exam: 04/01/2025 11:32 AM EDT Indication: follow up SDH seen on MRI. Comparison: MRI head 03/31/2025 Technique: Axial CT images were obtained of the head without contrast administration. Automated exposure control and iterative construction methods were used. Findings: Small residual subdural hematoma is seen overlying the posterior margin of the left occipital region. The hematoma measures up to approximately 2 mm in thickness. No additional intracranial hemorrhage is identified. There is no mass effect or midline shift. The ventricular system is nondilated. The basilar cisterns are patent. There is no uncal or cerebellar tonsillar herniation. White matter changes are noted. Diffuse volume loss is noted. These finds indicate age-related changes. There are no definitive signs of acute focal ischemia. The skull is intact. Mild changes of sinusitis are noted. The mastoid air cells are clear. Procedure Note Suman Ascencio Jr., MD - 04/01/2025 CT HEAD WO CONTRAST Date of Exam: 04/01/2025 11:32 AM EDT Indication: follow up SDH seen on MRI. Comparison: MRI head 03/31/2025 Technique: Axial CT images were obtained of the head without contrastadministration. Automated exposure control and iterative constructionmethods were used. Findings: Small residual subdural hematoma is seen overlying the posterior margin ofthe left occipital region. The hematoma measures up to approximately 2 mmin thickness. No additional intracranial hemorrhage is identified. There is no mass effect or midline shift. The ventricular system isnondilated. The basilar cisterns are patent. There is no uncal orcerebellar tonsillar herniation. White matter changes are noted. Diffuse volume loss is noted. These findsindicate age-related changes. There are no definitive signs of acute focalischemia. The skull is intact. Mild changes of sinusitis are noted. The mastoid aircells are clear. IMPRESSION: Impression: 1.Small residual subdural hematoma is seen overlying the posterior marginof the left occipital region. The hematoma measures up to approximately 2mm in thickness. The hematoma is stable to mildly decreased whencorrelated with the prior MRI. There has not been progression since the prior. 2.No additional intracranial hemorrhage is identified. 3.Age-related changes are noted. Electronically Signed: Valdez Ascencio MD 04/01/2025 11:48 AM EDT Workstation ID: [id number] Lowell Do DO IMG CT ORDERABLES Final Result * (ABNORMAL) POC Glucose Q6H (04/01/2025 6:12 AM EDT) Glucose 136(H) 70 - 130 mg/dL 04/01/2025 6:18 AM EDT [facility] Comment:Serial Number: [id number] Blood 04/01/2025 6:12 AM EDT 04/01/2025 6:18 AM EDT Narda Davila PA-C POINT OF CARE TEST ORDERABLES Fi nal Result [facility]
[address] [id number], * XR Chest 1 View (04/01/2025 5:04 AM EDT) Anatomical Region Laterality Modality Body N/A Radiographic Gerri ging 04/01/2025 7:52 AM EDT Impressions 04/01/2025 7:52 AM EDT Impression: 1.Increased left basilar atelectasis. 2.Mild discoid atelectasis in the right midlung. Electronically Signed: Adrián Puri MD 04/01/2025 7:52 AM EDT Workstation ID: [id number] Narrative 04/01/2025 7:52 AM EDT XR CHEST 1 VW Date of Exam: 04/01/2025 3:40 AM EDT Indication: pneumonia. Comparison: 03/31/2025 Findings: Cardiac size is stable and within normal limits. The pulmonary vascular pattern is normal. There is an increase in atelectasis in the left lung base compared with the last study. There is mild discoid atelectasis in the right midlung. Endotracheal tube and nasoenteric tube remain in good position. Procedure Note Adrián Puri III, MD - 04/01/2025 XR CHEST 1 VW Date of Exam: 04/01/2025 3:40 AM EDT Indication: pneumonia. Comparison: 03/31/2025 Findings: Cardiac size is stable and within normal limits. The pulmonary vascularpattern is normal. There is an increase in atelectasis in the left lungbase compared with the last study. There is mild discoid atelectasis inthe right midlung. Endotracheal tube and nasoenteric tube remain in good position. IMPRESSION: Impression: 1.Increased left basilar atelectasis. 2.Mild discoid atelectasis in the right midlung. Electronically Signed: Adrián Puri MD 04/01/2025 7:52 AM EDT Workstation ID: [id number] Narda Davila PA-C IMG DIAGNOSTIC IMAGING ORDERABLE S Final Result * (ABNORMAL) Blood Gas, Arterial With Co-Ox (04/01/2025 3:40 AM EDT) Site Left Radial 04/01/2025 3:41 AM EDT [facility] Henok's Test Positive 04/01/2025 3:41 AM EDT [facility] pH, Arterial 7.416 7.350 - 7.450 pH units 04/01/2025 3:41 AM EDT [facility] pCO2, Arterial 34.0(L) 35.0 - 45.0 mm Hg 04/01/2025 3:41 AM EDT [facility] Comment:84 Value below refer ence range pO2, Arterial 87.7 83.0 - 108.0 mm Hg 04/01/2025 3:41 AM EDT [facility] HCO3, Arterial 21.9 20.0 - 26.0 mmol/L 04/01/2025 3:41 AM EDT [facility] Base Excess, Arterial -2.2(L) 0.0 - 2.0 mmol/L 04/01/2025 3:41 AM EDT [facility] Hemoglobin, Blood Gas 10.2(L) 14 - 18 g/dL 04/01/2025 3:41 AM EDT [facility] Comment:84 Value below refer ence range Hematocrit, Blood Gas 31.2(L) 38.0 - 51.0 % 04/01/2025 3:41 AM EDT [facility] Oxyhemoglobin 95.1 94 - 99 % 04/01/2025 3:41 AM EDT [facility] Methemoglobin 0.40 0.00 - 1.50 % 04/01/2025 3:41 AM EDT [facility] Carboxyhemoglobin 1.6 0 - 2 % 025 3:41 AM EDT [facility] CO2 Content 22.9 22 - 33 mmol/L 04/01/2025 3:41 AM EDT [facility] Temperature 37.0 04/01/2025 3:41 AM EDT [facility] Barometric Pressure for Blood Gas 04/01/2025 3:41 AM EDT [facility] Comment:N/A Modality Ventilator 04/01/2025 3:41 AM EDT [facility] FIO2 30 % 04/01/2025 3:41 AM EDT [facility] Ventilator Mode VC+/AC 3:41 AM EDT [facility] Set Tidal Volume 0.42 04/01/20 3:41 AM EDT [facility] Rate 14 Breaths/ minute 04/01/2025 3:41 AM EDT [facility] PEEP 5.0 04/01/2025 3:41 AM EDT [facility] PIP 0 cmH2O 04/01/2025 3:41 AM EDT [facility] Comment:Meter: [id number] Ux Manager: [id number] IPAP 0 04/01/2025 3:41 AM EDT [facility] EPAP 0 04/01/2025 3:41 AM EDT [facility] pH, Temp Corrected 7.416 pH Units 2024 3:41 AM EDT [facility] pCO2, Temperature Corrected 34.0(L) 35 - 45 mm Hg 04/01/2025 3:41 AM EDT [facility] pO2, Temperature Corrected 87.7 83 - 108 mm Hg 04/01/2025 3:41 AM T [facility] Arterial Blood 04/01/2025 3: 40 AM EDT 04/01/2025 3:40 AM EDT us Pk Mckeon MD LAB BLOOD ORDERABLES Final R esult [facility]
[address] [place] [address], [place] * Phosphorus (04/01/2025 1:02 AM EDT) Phosphorus 3.3 2.5 - 4.5 mg/dL 04/01/2025 1:55 AM EDT [facility] Blood Venipuncture / Unknown 04/01/2025 1:02 AM EDT 04/01/2025 1:33 AM EDT us Pk Mckeon MD LAB BLOOD ORDERABLES Final R esult Performing Organization Address City/[facility]/ZIP Co de Phone Number [facility]
[address] [place] [address], * (ABNORMAL) Magnesium (04/01/2025 1:02 AM EDT) Magnesium 3.0(H) 1.6 - 2.4 mg/dL 04/01/2025 1:58 AM EDT [facility] Blood Venipuncture / Unknown 04/01/2025 1:02 AM EDT 04/01/2025 1:33 AM EDT us Pk Mckeon MD LAB BLOOD ORDERABLES Final R esult [facility]
[address] [place] [address], * (ABNORMAL) Comprehensive Metabolic Panel (04/01/2025 1:02 AM EDT) Glucose 137(H) 65 - 99 mg/dL 04/01/2025 1:58 AM EDT [facility] BUN 12.1 8.0 - 23.0 mg/dL 04/01/2025 1:58 AM EDT [facility] Creatinine 0.78 0.57 - 1.00 mg/dL 04/01/2025 1:58 AM EDT [facility] Sodium 137 136 - 145 mmol/L 04/01/2025 1:58 AM [facility] Potassium 4.6 3.5 - 5.2 mmol/L 04/01/2025 1:58 AM [facility] Chloride 104 98 - 107 mmol/L 04/01/2025 1:58 AM [facility] CO2 20.4(L) 22.0 - 29.0 mmol/L 04/01/2025 1:58 AM [facility] Calcium 9.1 8.6 - 10.5 mg/dL 04/01/2025 1:58 AM [facility] Total Protein 6.0 6.0 - 8.5 g/dL 04/01/2025 1:58 AM [facility] Albumin 3.5 3.5 - 5.2 g/dL 04/01/2025 1:58 AM [facility] ALT (SGPT) 21 1 - 33 U/L 04/01/2025 1:58 AM [facility] AST (SGOT) 42(H) 1 - 32 U/L 04/01/2025 1:58 AM [facility] Alkaline Phosphatase 139(H) 39 - 117 U/L 04/01/2025 1:58 AM [facility] Total Bilirubin 0.8 0.0 - 1.2 mg/dL 04/01/2025 1:58 AM [facility] Globulin 2.5 gm/dL 04/01/2025 1:58 AM [facility] Comment:Calculated Result A/G Ratio 1.4 g/dL 04/01/2025 1:58 AM [facility] BUN/Creatinine Ratio 15.5 7.0 - 25.0 04/01/2025 1:58 AM [facility] Anion Gap 12.6 5.0 - 15.0 mmol/L 04/01/2025 1:58 AM [facility] eGFR 82.9 >60.0 mL/min/1.7 3 04/01/2025 1:58 AM EDT [facility] Blood Venipuncture / Unknown 04/01/2025 1:02 AM EDT 04/01/2025 1:33 AM EDT [facility] - 04/01/2025 1:58 AM EDT GFR Categories in Chronic Kidney Disease (CKD) GFR Category GFR (mL/min/1.73) Interpretation G1 90 or greater Normal or high (1) G2 60-89 Mild decrease (1) G3a 45-59 Mild to moderate decrease G3b 30-44 Moderate to severe decrease G4 15-29 Severe decrease G5 14 or less Kidney failure (1)In the absence of evidence of kidney disease, neither GFR category G1 or G2 fulfill the criteria for CKD. eGFR calculation 2020 CKD-EPI creatinine equation, which does not include race as a factor Pk Mckeon MD LAB BLOOD ORDERABLES Final R esult [facility]
[address] [phone] * (ABNORMAL) CBC Auto Differential (04/01/2025 1:01 AM EDT) WBC 10.92(H) 3.40 - 10.80 10*3/mm3 04/01/2025 1:42 AM EDT [facility] RBC 3.42(L) 3.77 - 5.28 10*6/mm3 04/01/2025 1:42 AM EDT [facility] Hemoglobin 10.8(L) 12.0 - 15.9 g/dL 04/01/2025 1:42 AM EDT [facility] Hematocrit 32.5(L) 34.0 - 46.6 % 04/01/2025 1:42 AM EDT [facility] MCV 95.0 79.0 - 97.0 fL 04/01/2025 1:42 AM EDT [facility] MCH 31.6 26.6 - 33.0 pg 04/01/2025 1:42 AM EDT [facility] MCHC 33.2 31.5 - 35.7 g/dL 04/01/2025 1:42 AM [facility] RDW 17.0(H) 12.3 - 15.4 % 04/01/2025 1:42 AM [facility] RDW-SD 55.9(H) 37.0 - 54.0 fl 04/01/2025 1:42 AM [facility] MPV 9.7 6.0 - 12.0 fL 04/01/2025 1:42 AM [facility] Platelets 102(L) 140 - 450 10*3/mm3 04/01/2025 1:42 AM [facility] Neutrophil % 68.0 42.7 - 76.0 % 04/01/2025 1:42 AM [facility] Lymphocyte % 20.3 19.6 - 45.3 % 04/01/2025 1:42 AM [facility] Monocyte % 9.2 5.0 - 12.0 % 04/01/2025 1:42 AM [facility] Eosinophil % 1.6 0.3 - 6.2 % 04/01/2025 1:42 AM [facility] Basophil % 0.4 0.0 - 1.5 % 04/01/2025 1:42 AM [facility] Immature Grans % 0.5 0.0 - 0.5 % 04/01/2025 1:42 AM [facility] Neutrophils, Absolute 7.42(H) 1.70 - 7.00 10*3/mm3 04/01/2025 1:42 AM [facility] Lymphocytes, Absolute 2.22 0.70 - 3.10 10*3/mm3 04/01/2025 1:42 AM [facility] Monocytes, Absolute 1.01(H) 0.10 - 0.90 10*3/mm3 04/01/2025 1:42 AM [facility] Eosinophils, Absolute 0.17 0.00 - 0.40 10*3/mm3 04/01/2025 1:42 AM EDT [facility] Basophils, Absolute 0.04 0.00 - 0.20 10*3/mm3 04/01/2025 1:42 AM EDT [facility] Immature Grans, Absolute 0.06(H) 0.00 - 0.05 10*3/mm3 04/01/2025 1:42 AM EDT [facility] nRBC 0.0 0.0 - 0.2 /100 WBC 04/01/2025 1:42 AM EDT [facility] Blood Venipuncture / Unknown 04/01/2025 1:01 AM EDT 04/01/2025 1:36 AM EDT Pk Mckeon MD LAB BLOOD ORDERABLES Final R esult Performing Organization Address City/[facility]/ZIP Co de Phone Number [facility]
[address] [place] [address], * (ABNORMAL) POC Glucose Q6H (04/01/2025 12:04 AM EDT) Glucose 135(H) 70 - 130 mg/dL 04/01/2025 12:07 AM EDT [facility] Comment:Serial Number: [id number] Blood 04/01/2025 12:0 4 AM EDT 04/01/2025 12:07 AM EDT Narda Davila PA-C POINT OF CARE TEST ORDERABLES Fi nal Result Performing Organization Address [facility]/ZIP Co de Phone Number [facility]
[address] [place] [address], * MRI Brain Without Contrast (03/31/2025 10:23 PM EDT) Anatomical Region Laterality Modality Head, Neck N/A Magnetic Resonan ce 04/01/2025 5:53 AM EDT Impressions 04/01/2025 6:05 AM EDT Impression: 1.No acute ischemic change. 2.Small subdural hematoma along the left occipital convexity. 3.Diffuse atrophy and white matter changes compatible sequela of small vessel ischemic disease in this age group. 4.Bilateral mastoid effusions left greater than right. Findings were communicated to the agency service coordinator, Horace at 6:03 a.m. at the time of interpretation Electronically Signed: Pérez Ardon MD 04/01/2025 6:05 AM EDT Workstation ID: [id number] Artie 04/01/2025 6:05 AM EDT MRI BRAIN WO CONTRAST Date of Exam: 03/31/2025 9:27 PM EDT Indication: found down unknown time, new onset seizures. Comparison: None available. Technique: Routine multiplanar/multisequence sequence images of the brain were obtained without contrast administration. Findings: Diffusion-weighted imaging demonstrates no acute restriction abnormality. There is a small subdural collection along the left occipital convexity with increased signal on T1, FLAIR and T2 weighted imaging. This measures approximately 2 to 3 mm in greatest diameter. There is associated susceptibility artifact on gradient weighted imaging. No definite additional intracranial hemorrhage is noted. There is diffuse atrophy without evidence of mass effect. Mild to moderate degree of patchy FLAIR and T2 signal hyperintensity in the brain parenchyma with a supratentorial predominance is most compatible with sequela small vessel ischemic disease in this age group. Limited imaging of the major intracranial flow voids appear grossly patent. Mucosal thickening of the paranasal sinuses noted more prominently in the left maxillary sinus. Globes and orbits are grossly unremarkable in appearance. Bilateral mastoid effusions are noted left greater than right. Midline structures of the brain, sagittal T1 weighted images are grossly unremarkable in appearance. Pituitary and sellar structures and craniocervical junction are grossly unremarkable in appearance Procedure Note Pérez Ardon MD - 04/01/2025 MRI BRAIN WO CONTRAST Date of Exam: 03/31/2025 9:27 PM EDT Indication: found down unknown time, new onset seizures. Comparison: None available. Technique: Routine multiplanar/multisequence sequence images of the brainwere obtained without contrast administration. Findings: Diffusion-weighted imaging demonstrates no acute restrictionabnormality. There is a small subdural collection along the left occipital convexitywith increased signal on T1, FLAIR and T2 weighted imaging. This measuresapproximately 2 to 3 mm in greatest diameter. There is associatedsusceptibility artifact on gradient weighted imaging. No definite additional intracranial hemorrhage is noted.There is diffuse atrophy without evidence of mass effect. Mild to moderatedegree of patchy FLAIR and T2 signal hyperintensity in the brainparenchyma with a supratentorial predominance is most compatible with sequela small vessel ischemic diseasein this age group. Limited imaging of the major intracranial flow voidsappear grossly patent. Mucosal thickening of the paranasal sinuses notedmore prominently in the left maxillary sinus. Globes and orbits are grossly unremarkable in appearance.Bilateral mastoid effusions are noted left greater than right. Midlinestructures of the brain, sagittal T1 weighted images are grosslyunremarkable in appearance. Pituitary and sellar structures and craniocervical junction are grossly unremarkable inappearance IMPRESSION: Impression: 1.No acute ischemic change. 2.Small subdural hematoma along the left occipital convexity. 3.Diffuse atrophy and white matter changes compatible sequela of smallvessel ischemic disease in this age group. 4.Bilateral mastoid effusions left greater than right. Findings were communicated to the agency service coordinator, Horace at 6:03 a.m. atthe time of interpretation Electronically Signed: Pérez Ardon MD 04/01/2025 6:05 AM EDT Workstation ID: [id number] Lowell Do DO IMG MRI ORDERABLES Final Result * (ABNORMAL) POC Glucose Q6H (03/31/2025 6:04 PM EDT) Glucose 135(H) 70 - 130 mg/dL 03/31/2025 6:05 PM EDT [facility] Comment:Serial Number: [id number] Blood 03/31/2025 6:04 PM EDT 03/31/2025 6:05 PM EDT Narda Davila PA-C POINT OF CARE TEST ORDERABLES Fi nal Result [facility]
[address] [place] [address], [place] [phone] * Type & Screen (03/31/2025 3:22 PM EDT) [facility] ABO Type A 03/31/2025 4:13 PM EDT [facility] RH type Positive 03/31/2025 4:13 PM EDT [facility] Antibody Screen Negative 03/31/2025 4:13 PM EDT [facility] T&S Expiration Date 04/03/2025 11:59:59 PM 03/31/2025 4:13 PM EDT [facility] Blood Venipuncture / Unknown 03/31/2025 3:22 PM EDT 03/31/2025 3:41 PM EDT us Pk Mckeon MD BLOOD BANK TEST ORDERABLES E dited Result - Final [facility]
[address] [place] [address], [place] [phone] * Vitamin B12 (03/31/2025 3:22 PM EDT) [facility] Vitamin B-12 345 211 - 946 pg/mL 03/31/2025 9:06 PM EDT [facility] Blood Venipuncture / Unknown 03/31/2025 3:22 PM EDT 03/31/2025 3:38 PM EDT Narrative [facility] - 03/31/2025 9:06 PM EDT Results may be falsely increased if patient taking Biotin. us Pk Mckeon MD LAB BLOOD ORDERABLES Final R esult [facility]
[address] [place] [address], [place] [phone] * Folate (03/31/2025 3:22 PM EDT) Folate >20.00 4.78 - 24.20 ng/mL 03/31/2025 9:06 PM EDT [facility] Blood Venipuncture / Unknown 03/31/2025 3:22 PM EDT 03/31/2025 3:38 PM EDT Narrative [facility] - 03/31/2025 9:06 PM EDT Results may be falsely increased if patient taking Biotin. Pk Mckeon MD LAB BLOOD ORDERABLES Final R esult Performing Organization Address [facility]/ZIP Co de Phone Number [facility]
[address] [place] [address], * EEG AWAKE OR DROWSY PORTABLE (03/31/2025 2:20 PM EDT) Impressions NEUROLOGY - 03/31/2025 4:32 PM EDT Diffuse cerebral dysfunction of mild-moderate degree, nonspecific but most commonly seen due to toxic/metabolic or hypoxemic cause No ongoing seizures are present This report is transcribed using the [employer] dictation system. Narrative NEUROLOGY - 03/31/2025 4:32 PM EDT Reason for referral: 70 y.o.female with seizures Technical Summary: A 19 channel digital EEG was performed using the international 10-20 placement system, including eye leads and EKG leads. Duration: 20 minutes Findings: The patient is intubated and sedated. The background shows diffuse low amplitude 5 to 6 Hz theta which is present symmetrically over both hemispheres. EMG artifact is quite prominent at times. IV pump artifact is prominent throughout. No lateralizing features are seen. No epileptiform activity or electrographic seizures are present. Photic stimulation does not change the background. Video: Available Technical quality: Good Rhythm strip: Regular, 70 bpm SUMMARY: Mild generalized slow and suppressed No focal features or epileptiform activity are seen Narda Davila PA-C NEUROLOGY ORDERABLES Final Resul t Performing Organization Address City/[facility]/ZIP Co de Phone Number NEUROLOGY * MRSA Screen, PCR (Inpatient) - Swab, Nares (03/31/2025 2:09 PM EDT) MRSA PCR Negative Negative CEPHEID [employer]EXPERT 03/31/2025 3:37 PM EDT [facility] Swab Structure of anterior naris / Unknown Collection / Unknown 03/31/2025 2:09 PM EDT 03/31/2025 2:24 PM EDT Narrative [facility] - 03/31/2025 3:37 PM EDT The negative predictive value of this diagnostic test is high and should only be used to consider de-escalating anti-MRSA therapy. A positive result may indicate colonization with MRSA and must be correlated clinically. MRSA Negative us Pk Mckeon MD MICROBIOLOGY - GENERAL ORDER LORENA Final Result [facility]
[address] [place] [address], * XR Abdomen KUB (03/31/2025 12:58 PM EDT) Anatomical Region Laterality Modality Body, Abdomen N/A Radiographic Gerri ging 03/31/2025 1:12 PM EDT Impressions 03/31/2025 1:13 PM EDT Impression: 1.Nasogastric tube tip is within the stomach. 2.Atelectatic changes suggested in the visualized lower lungs. Electronically Signed: Marques Roberto MD 03/31/2025 1:13 PM EDT Workstation ID: [id number] Narrative 03/31/2025 1:13 PM EDT XR ABDOMEN KUB Date of Exam: 03/31/2025 12:47 PM EDT Indication: tube feeding placement. Comparison: None available. Findings: The nasogastric tube is noted with its tip in the stomach. There is a bandlike area of density in the right lower chest that could reflect some atelectasis. There also is probably atelectasis at the left lung base. Procedure Note Marques Roberto MD - 03/31/2025 XR ABDOMEN KUB Date of Exam: 03/31/2025 12:47 PM EDT Indication: tube feeding placement. Comparison: None available. Findings: The nasogastric tube is noted with its tip in the stomach. There is abandlike area of density in the right lower chest that could reflect someatelectasis. There also is probably atelectasis at the left lung base. IMPRESSION: Impression: 1.Nasogastric tube tip is within the stomach. 2.Atelectatic changes suggested in the visualized lower lungs. Electronically Signed: Marques Roberto MD 03/31/2025 1:13 PM EDT Workstation ID: [id number] Pk Mckeon MD IMG DIAGNOSTIC IMAGING ORDER LORENA Final Result * Blood Culture - Blood, Hand, Right (03/31/2025 12:40 PM EDT) Blood Culture No growth at 5 days 04/05/2025 1:46 PM EDT [facility] Blood Structure of right hand / Unknown Venipuncture / Unknown 03/31/2025 12:40 PM EDT 03/31/2025 1:32 PM EDT us Narda Davila PA-C MICROBIOLOGY - GENERAL ORDERABLE S Final Result [facility]
[address] [place] [address], * Blood Culture - Blood, Hand, Left (03/31/2025 12:28 PM EDT) Blood Culture No growth at 5 days 04/05/2025 1:46 PM EDT [facility] Blood Structure of left hand / Unknown Venipuncture / Unknown 03/31/2025 12:28 PM EDT 03/31/2025 1:32 PM EDT Narrative [facility] - 04/05/2025 1:46 PM EDT Less than seven (7) mL's of blood was collected. Insufficient quantity may yield false negative results. us Narda Davila PA-C MICROBIOLOGY - GENERAL ORDERABLE S Final Result Performing Organization Address City/[facility]/ZIP Co de Phone Number [facility]
[address] [place] [address], * ABO RH Specimen Verification (03/31/2025 12:04 PM EDT) ABO Type A 03/31/2025 11:45 PM EDT [facility] RH type Positive 03/31/2025 11:45 PM EDT [facility] Blood Venipuncture / Unknown 03/31/2025 12:04 PM EDT 03/31/2025 3:49 PM EDT us Pk Mckeon MD BLOOD BANK TEST ORDERABLES F inal Result Performing Organization Address [facility] Co de Phone Number [facility]
[address] [place] [address], * (ABNORMAL) Reticulocytes (03/31/2025 12:04 PM EDT) Pathologist [facility] Reticulocyte % 3.55(H) 0.70 - 1.90 % 03/31/2025 1:09 PM EDT [facility] Reticulocyte Absolute 0.1250 0.0200 - 0.1300 10*6/mm3 03/31/2025 1:09 PM EDT [facility] Blood Line / Unknown 03/31/2025 12 :04 PM EDT 03/31/2025 12:10 PM EDT us Pk Mckeon MD LAB BLOOD ORDERABLES Final R esult Performing Organization Address City/[facility]/ZIP Co de Phone Number [facility]
[address] [place] [address], * Ferritin (03/31/2025 12:04 PM EDT) Pathologist [facility] Ferritin 45.20 13.00 - 150.00 ng/mL 03/31/2025 1:29 PM EDT [facility] Blood Line / Unknown 03/31/2025 12 :04 PM EDT 03/31/2025 12:09 PM EDT Narrative [facility] - 03/31/2025 1:29 PM EDT Results may be falsely decreased if patient taking Biotin. us Pk Mckeon MD LAB BLOOD ORDERABLES Final R esult Performing Organization Address City/[facility]/ZIP Co de Phone Number [facility]
[address] [place] [address], * Iron Profile w/o Ferritin (03/31/2025 12:04 PM EDT) Iron 117 37 - 145 mcg/dL 03/31/2025 1:29 PM EDT [facility] Iron Saturation (TSAT) 27 20 - 50 % 03/31/2025 1:29 PM EDT [facility] Transferrin 290 200 - 360 mg/dL 03/31/2025 1:29 PM EDT [facility] TIBC 432 298 - 536 mcg/dL 03/31/2025 1:29 PM EDT [facility] Blood Line / Unknown 03/31/2025 12 :04 PM EDT 03/31/2025 12:09 PM EDT us Pk Mckeon MD LAB BLOOD ORDERABLES Final R esult [facility]
[address] [place] [address], * T4, Free (03/31/2025 12:04 PM EDT) Free T4 1.15 0.92 - 1.68 ng/dL 03/31/2025 1:10 PM EDT [facility] Blood Line / Unknown 03/31/2025 12 :04 PM EDT 03/31/2025 12:09 PM EDT us Pk Mckeon MD LAB BLOOD ORDERABLES Final R esult Performing Organization Address [facility] Co de Phone Number [facility]
[address] [place] [address], * Ammonia (03/31/2025 12:04 PM EDT) Pathologist [facility] Ammonia 36 11 - 51 umol/L 03/31/2025 12:32 PM EDT [facility] Blood Line / Unknown 03/31/2025 12 :04 PM EDT 03/31/2025 12:09 PM EDT Narda Davila PA-C LAB BLOOD ORDERABLES Final Resul t Performing Organization Address [facility] de Phone Number [facility]
[address] [place] [address], [place] [phone] * (ABNORMAL) TSH Rfx On Abnormal To Free T4 (03/31/2025 12:04 PM EDT) Pathologist [facility] TSH 4.410(H) 0.270 - 4.200 uIU/mL 03/31/2025 12:44 PM EDT [facility] Blood Line / Unknown 03/31/2025 12 :04 PM EDT 03/31/2025 12:09 PM EDT us Pk Mckeon MD LAB BLOOD ORDERABLES Final R esult Performing Organization Address [facility] de Phone Number [facility]
[address] [place] [address], * (ABNORMAL) Procalcitonin (03/31/2025 12:04 PM EDT) Pathologist [facility] Procalcitonin 0.35(H) 0.00 - 0.25 ng/mL 03/31/2025 12:41 PM EDT [facility] Blood Line / Unknown 03/31/2025 12 :04 PM EDT 03/31/2025 12:09 PM EDT Narrative [facility] - 03/31/2025 12:41 PM EDT As a Marker for Sepsis (Non-Neonates): 1. <0.5 ng/mL represents a low risk of severe sepsis and/or septic shock. 2. >2 ng/mL represents a high risk of severe sepsis and/or septic shock. As a Marker for Lower Respiratory Tract Infections that require antibiotic therapy: PCT on Admission Antibiotic Therapy 6-12 Hrs later >0.5 Strongly Recommended >0.25 - <0.5 Recommended 0.1 - 0.25 Discouraged Remeasure/reassess PCT <0.1 Strongly Discouraged Remeasure/reassess PCT As 28 day mortality risk marker: Change in Procalcitonin Result (>80% or <=80%) if Day 0 (or Day 1) and Day 4 values are available. Refer to http://[email or web address]-rsd-[email or web address] Change in PCT <=80% A decrease of PCT levels below or equal to 80% defines a positive change in PCT test result representing a higher risk for 28-day all-cause mortality of patients diagnosed with severe sepsis for septic shock. Change in PCT >80% A decrease of PCT levels of more than 80% defines a negative change in PCT result representing a lower risk for 28-day all-cause mortality of patients diagnosed with severe sepsis or septic shock. us Pk Mckeon MD LAB BLOOD ORDERABLES Final R esult [facility]
[address] [place] [address], * Phosphorus (03/31/2025 12:04 PM EDT) Phosphorus 3.2 2.5 - 4.5 mg/dL 03/31/2025 12:41 PM EDT [facility] Blood Line / Unknown 03/31/2025 12 :04 PM EDT 03/31/2025 12:09 PM EDT us Pk Mckeon MD LAB BLOOD ORDERABLES Final R esult Performing Organization Address City/[facility]/ZIP Co de Phone Number [facility]
[address] [place] [address], [place] [phone] * (ABNORMAL) Magnesium (03/31/2025 12:04 PM EDT) Pathologist [facility] Magnesium 1.3(L) 1.6 - 2.4 mg/dL 03/31/2025 12:41 PM EDT [facility] Blood Line / Unknown 03/31/2025 12 :04 PM EDT 03/31/2025 12:09 PM EDT us Pk Mckeon MD LAB BLOOD ORDERABLES Final R esult Performing Organization Address [facility] de Phone Number [facility]
[address] [place] [address], [place] [phone] * Lactic Acid, Plasma (03/31/2025 12:04 PM EDT) [facility] Lactate 2.0 0.5 - 2.0 mmol/L 03/31/2025 12:31 PM EDT [facility] Comment:Falsely depressed re sults may occur on samples drawn from patients receiving N-Acetylcysteine (NAC) or Metamizole. Blood Line / Unknown 03/31/2025 12 :04 PM EDT 03/31/2025 12:09 PM EDT us Pk Mckeon MD LAB BLOOD ORDERABLES Final R esult Performing Organization Address City/[facility] Co de Phone Number [facility]
[address] [place] [address], [place] [phone] * Hemoglobin A1c (03/31/2025 12:04 PM EDT) Pathologist [facility] Hemoglobin A1C 5.33 4.80 - 5.60 % 03/31/2025 12:58 PM EDT [facility] Blood Line / Unknown 03/31/2025 12 :04 PM EDT 03/31/2025 12:10 PM EDT Narrative [facility] - 03/31/2025 12:58 PM EDT Hemoglobin A1C Ranges: Increased Risk for Diabetes 5.7% to 6.4% Diabetes >= 6.5% Diabetic Goal < 7.0% us Pk Mckeon MD LAB BLOOD ORDERABLES Final R esult [facility]
[address] [place] [address], * (ABNORMAL) Comprehensive Metabolic Panel (03/31/2025 12:04 PM EDT) Glucose 112(H) 65 - 99 mg/dL 03/31/2025 12:41 PM EDT [facility] BUN 14.5 8.0 - 23.0 mg/dL 03/31/2025 12:41 PM EDT [facility] Creatinine 0.74 0.57 - 1.00 mg/dL 03/31/2025 12:41 PM EDT [facility] Sodium 137 136 - 145 mmol/L 03/31/2025 12:41 PM EDT [facility] Potassium 3.6 3.5 - 5.2 mmol/L 03/31/2025 12:41 PM EDT [facility] Chloride 100 98 - 107 mmol/L 03/31/2025 12:41 PM EDT [facility] CO2 23.3 22.0 - 29.0 mmol/L 03/31/2025 12:41 PM EDT [facility] Calcium 9.5 8.6 - 10.5 mg/dL 03/31/2025 12:41 PM EDT [facility] Total Protein 7.0 6.0 - 8.5 g/dL 03/31/2025 12:41 PM EDT [facility] Albumin 3.9 3.5 - 5.2 g/dL 03/31/2025 12:41 PM EDT [facility] ALT (SGPT) 23 1 - 33 U/L 03/31/2025 12:41 PM T [facility] AST (SGOT) 41(H) 1 - 32 U/L 03/31/2025 12:41 PM T [facility] Alkaline Phosphatase 158(H) 39 - 117 U/L 03/31/2025 12:41 PM EDT [facility] Total Bilirubin 1.1 0.0 - 1.2 mg/dL 03/31/2025 12:41 PM T [facility] Globulin 3.1 gm/dL 03/31/2025 12:41 PM T [facility] Comment:Calculated Result A/G Ratio 1.3 g/dL 03/31/2025 12:41 PM [facility] BUN/Creatinine Ratio 19.6 7.0 - 25.0 03/31/2025 12:41 PM [facility] Anion Gap 13.7 5.0 - 15.0 mmol/L 03/31/2025 12:41 PM [facility] eGFR 88.3 >60.0 mL/min/1.7 3 03/31/2025 12:41 PM [facility] Blood Line / Unknown 03/31/2025 12 :04 PM EDT 03/31/2025 12:09 PM EDT [facility] - 03/31/2025 12:41 PM EDT GFR Categories in Chronic Kidney Disease (CKD) GFR Category GFR (mL/min/1.73) Interpretation G1 90 or greater Normal or high (1) G2 60-89 Mild decrease (1) G3a 45-59 Mild to moderate decrease G3b 30-44 Moderate to severe decrease G4 15-29 Severe decrease G5 14 or less Kidney failure (1)In the absence of evidence of kidney disease, neither GFR category G1 or G2 fulfill the criteria for CKD. eGFR calculation 2020 CKD-EPI creatinine equation, which does not include race as a factor us Pk Mckeon MD LAB BLOOD ORDERABLES Final R esult [facility]
[address] [place] [address], * (ABNORMAL) CK (03/31/2025 12:04 PM EDT) Pathologist [facility] Creatine Kinase 215(H) 20 - 180 U/L 03/31/2025 12:41 PM EDT [facility] Blood Line / Unknown 03/31/2025 12 :04 PM EDT 03/31/2025 12:09 PM EDT us Pk Mckeon MD LAB BLOOD ORDERABLES Final R esult Performing Organization Address City/[facility]/ZIP Co de Phone Number [facility]
[address] [place] [address], * (ABNORMAL) CBC Auto Differential (03/31/2025 12:04 PM EDT) [facility] WBC 5.94 3.40 - 10.80 10*3/mm3 03/31/2025 12:22 PM EDT [facility] RBC 3.47(L) 3.77 - 5.28 10*6/mm3 03/31/2025 12:22 PM EDT [facility] Hemoglobin 10.5(L) 12.0 - 15.9 g/dL 03/31/2025 12:22 PM EDT [facility] Hematocrit 31.2(L) 34.0 - 46.6 % 03/31/2025 12:22 PM EDT [facility] MCV 89.9 79.0 - 97.0 fL 03/31/2025 12:22 PM EDT [facility] MCH 30.3 26.6 - 33.0 pg 03/31/2025 12:22 PM EDT [facility] MCHC 33.7 31.5 - 35.7 g/dL 03/31/2025 12:22 PM [facility] RDW 16.3(H) 12.3 - 15.4 % 03/31/2025 12:22 PM [facility] RDW-SD 51.3 37.0 - 54.0 fl 03/31/2025 12:22 PM [facility] MPV 9.2 6.0 - 12.0 fL 03/31/2025 12:22 PM [facility] Platelets 75(L) 140 - 450 10*3/mm3 03/31/2025 12:22 PM [facility] Neutrophil % 77.6(H) 42.7 - 76.0 % 03/31/2025 12:22 PM [facility] Lymphocyte % 16.0(L) 19.6 - 45.3 % 03/31/2025 12:22 PM [facility] Monocyte % 5.4 5.0 - 12.0 % 03/31/2025 12:22 PM [facility] Eosinophil % 0.3 0.3 - 6.2 % 03/31/2025 12:22 PM [facility] Basophil % 0.2 0.0 - 1.5 % 03/31/2025 12:22 PM [facility] Immature Grans % 0.5 0.0 - 0.5 % 03/31/2025 12:22 PM [facility] Neutrophils, Absolute 4.61 1.70 - 7.00 10*3/mm3 03/31/2025 12:22 PM [facility] Lymphocytes, Absolute 0.95 0.70 - 3.10 10*3/mm3 03/31/2025 12:22 PM [facility] Monocytes, Absolute 0.32 0.10 - 0.90 10*3/mm3 03/31/2025 12:22 PM [facility] Eosinophils, Absolute 0.02 0.00 - 0.40 10*3/mm3 03/31/2025 12:22 PM EDT [facility] Basophils, Absolute 0.01 0.00 - 0.20 10*3/mm3 03/31/2025 12:22 PM EDT [facility] Immature Grans, Absolute 0.03 0.00 - 0.05 10*3/mm3 03/31/2025 12:22 PM EDT [facility] nRBC 0.0 0.0 - 0.2 /100 WBC 03/31/2025 12:22 PM EDT [facility] Blood Line / Unknown 03/31/2025 12 :04 PM EDT 03/31/2025 12:10 PM EDT us Pk Mckeon MD LAB BLOOD ORDERABLES Final R esult Performing Organization Address City/[facility]/ZIP Co de Phone Number [facility]
[address] [place] [address], * BNP (03/31/2025 12:04 PM EDT) [facility] proBNP 878.0 0.0 - 900.0 pg/mL 03/31/2025 12:41 PM EDT [facility] Blood Line / Unknown 03/31/2025 12 :04 PM EDT 03/31/2025 12:09 PM EDT Narrative [facility] - 03/31/2025 12:41 PM EDT This assay is used as an aid in the diagnosis of individuals suspected of having heart failure. It can be used as an aid in the diagnosis of acute decompensated heart failure (ADHF) in patients presenting with signs and symptoms of ADHF to the emergency department (ED). In addition, NT-proBNP of <300 pg/mL indicates ADHF is not likely. Age Range Result Interpretation NT-proBNP Concentration (pg/mL: <50 Positive >450 [place] 300-450 Negative <300 50-75 Positive >900 [place] 300-900 Negative <300 >75 Positive >1800 Collado 300-1800 Negative <300 us Pk Mckeon MD LAB BLOOD ORDERABLES Final R esult [facility]
[address] [place] [id number], * (ABNORMAL) Urinalysis, Microscopic Only - Urine, Clean Catch (03/31/2025 11:33 AM EDT) RBC, UA 6-10(A) None Seen, 0-2 /HPF 03/31/2025 12:30 PM EDT [facility] WBC, UA 6-10(A) None Seen, 0-2 /HPF 03/31/2025 12:30 PM EDT [facility] Bacteria, UA Trace(A) None Seen /HPF 03/31/2025 12:30 PM EDT [facility] Squamous Epithelial Cells, UA 0-2 None Seen, 0-2 /HPF 03/31/2025 12:30 PM EDT [facility] Renal Epithelial Cells, UA 0-2 0 - 2 /HPF 03/31/2025 12:30 PM EDT [facility] Hyaline Casts, UA 7-12 None Seen /LPF 03/31/2025 12:30 PM EDT [facility] Methodology Manual Light Microscopy 03/31/2025 12:30 PM EDT [facility] Urine Urine specimen obtained by clean catch procedure / Unknown Collection / Unknown 03/31/2025 11:33 AM EDT 03/31/2025 11:44 AM EDT Pk Mckeon MD URINE ORDERABLES Final Resul t [facility]
[address] [place] [address], * Respiratory Culture - Sputum, ET Suction (03/31/2025 11:33 AM EDT) Respiratory Culture Light growth (2+) Normal respiratory marva. No S. aureus or Pseudomonas aeruginosa detected. Final report. ANIVAL 04/02/2025 11:36 AM EDT [facility] Gram Stain Few (2+) WBCs per low power field 04/02/2025 11:36 AM EDT [facility] Gram Stain No Epithelial cells per low power field 04/02/2025 11:36 AM EDT [facility] Gram Stain Few (2+) Gram positive bacilli 04/02/2025 11:36 AM EDT [facility] Sputum Tracheal structure / Unknown Collection / Unknown 03/31/2025 11:33 AM EDT 03/31/2025 11:38 AM EDT Narda Davila PA-C MICROBIOLOGY - GENERAL ORDERABLE S Final Result [facility]
[address] [place] [address], [place] [phone] [facility]
[address] [place] [address], [place] [phone] * (ABNORMAL) Urinalysis With Microscopic If Indicated (No Culture) - Urine, Clean Catch (03/31/2025 11:33 AM EDT) Color, UA Yellow Yellow, Straw 03/31/2025 12:31 PM EDT [facility] Appearance, UA Clear Clear 03/31/2025 12:31 PM EDT [facility] pH, UA 6.5 5.0 - 8.0 03/31/2025 12:31 PM EDT [facility] Specific [place], UA >1.030(H) 1.005 - 1.030 03/31/2025 12:31 PM EDT [facility] Glucose, UA Negative Negative 03/31/2025 12:31 PM EDT [facility] Ketones, UA Negative Negative 03/31/2025 12:31 PM EDT [facility] Bilirubin, UA Negative Negative 03/31/2025 12:31 PM EDT [facility] Blood, UA Small (1+)(A) Negative 03/31/2025 12:31 PM EDT [facility] Protein, UA 100 mg/dL (2+)(A) Negative 03/31/2025 12:31 PM EDT [facility] Leuk Esterase, UA Small (1+)(A) Negative 03/31/2025 12:31 PM EDT [facility] Nitrite, UA Negative Negative 03/31/2025 12:31 PM EDT [facility] Urobilinogen, UA 1.0 E.U./dL 0.2 - 1.0 E.U./dL 03/31/2025 12:31 PM EDT [facility] Urine Urine specimen obtained by clean catch procedure / Unknown Collection / Unknown 03/31/2025 11:33 AM EDT 03/31/2025 11:44 AM EDT us Pk Mckeon MD URINE ORDERABLES Final Resul t [facility]
[address] [place] [address], * (ABNORMAL) Blood Gas, Arterial With Co-Ox (03/31/2025 11:12 AM EDT) Site Left Radial 03/31/2025 11:13 AM EDT [facility] THER[facility] Henok's Test N/A 03/31/2025 11:13 AM EDT [facility] THER[facility] pH, Arterial 7.453(H) 7.350 - 7.450 pH units 03/31/2025 11:13 AM EDT [facility] Comment:83 Value above refer ence range pCO2, Arterial 34.5(L) 35.0 - 45.0 mm Hg 03/31/2025 11:13 AM EDT [facility] Comment:84 Value below refer ence range pO2, Arterial 496.0(H) 83.0 - 108.0 mm Hg 03/31/2025 11:13 AM EDT [facility] Comment:83 Value above refer ence range HCO3, Arterial 24.1 20.0 - 26.0 mmol/L 03/31/2025 11:13 AM [facility] THER[facility] Base Excess, Arterial 0.5 0.0 - 2.0 mmol/L 03/31/2025 11:13 AM [facility] THERAP[facility] Hemoglobin, Blood Gas 11.4(L) 14 - 18 g/dL 03/31/2025 11:13 AM [facility] Comment:84 Value below refer ence range Hematocrit, Blood Gas 34.8(L) 38.0 - 51.0 % 03/31/2025 11:13 AM [facility] THER[facility] Oxyhemoglobin 98.6 94 - 99 % 03/31/2025 11:13 AM [facility] Methemoglobin 0.70 0.00 - 1.50 % 03/31/2025 11:13 AM [facility] Carboxyhemoglobin 1.2 0 - 2 % 025 11:13 AM [facility] CO2 Content 25.2 22 - 33 mmol/L 03/31/2025 11:13 AM [facility] Temperature 37.0 03/31/2025 11:13 AM [facility] Barometric Pressure for Blood Gas 03/31/2025 11:13 AM [facility] Comment:N/A Modality Ventilator 03/31/2025 11:13 AM [facility] FIO2 100 % 03/31/2025 11:13 AM [facility] Ventilator Mode VC+/AC 11:13 AM [facility] Set Tidal Volume 0.42 03/31/20 11:13 AM [facility] Rate 14 Breaths/ minute 03/31/2025 11:13 AM [facility] THER[facility] PEEP 5.0 03/31/2025 11:13 AM [facility] THER[facility] PIP 0 cmH2O 03/31/2025 11:13 AM [facility] Comment:Meter: [id number] Ux Manager: [id number] IPAP 0 03/31/2025 11:13 AM EDT [facility] EPAP 0 03/31/2025 11:13 AM EDT [facility] THERAP[facility] pH, Temp Corrected 7.453 pH Units 2024 11:13 AM EDT [facility] THERAP[facility] pCO2, Temperature Corrected 34.5(L) 35 - 45 mm Hg 03/31/2025 11:13 AM EDT [facility] THERAPY pO2, Temperature Corrected 496(H) 83 - 108 mm Hg 03/31/2025 11:13 AM EDT [facility] THERAP[facility] Arterial Blood 03/31/2025 11 :12 AM EDT 03/31/2025 11:12 AM EDT us Pk Mckeon MD LAB BLOOD ORDERABLES Final R esult [facility] TH[facility]
[address] [place] [address], [place] * XR Chest 1 View (03/31/2025 10:58 AM EDT) Anatomical Region Laterality Modality Body N/A Radiographic Gerri ging 03/31/2025 11:0 0 AM EDT Impressions 03/31/2025 11:02 AM EDT Appropriate tube placement. Otherwise no acute cardiopulmonary disease. Electronically Signed: Allen Badillo MD 03/31/2025 11:02 AM EDT Workstation ID: [id number] Narrative 03/31/2025 11:02 AM EDT XR CHEST 1 VW Date of Exam: 03/31/2025 10:47 AM EDT Indication: patient intubated, possible aspiration. Comparison: None available. Findings: Endotracheal tube tip 3.7 cm above the level of the demarcus. Feeding tube tip extending below the diaphragm and beyond the [id number]. No consolidation. No pneumothorax or pleural effusion. The clavicles are intact. No rib fractures. The visualized upper abdomen appears normal. Calcification of the aortic arch. Faint platelike atelectasis along the right minor fissure. Procedure Note Allen Badillo MD - 03/31/2025 XR CHEST 1 VW Date of Exam: 03/31/2025 10:47 AM EDT Indication: patient intubated, possible aspiration. Comparison: None available. Findings: Endotracheal tube tip 3.7 cm above the level of the demarcus.Feeding tube tip extending below the diaphragm and beyond [id number]. No consolidation. No pneumothorax or pleural effusion. Theclavicles are intact. No rib fractures. The visualized upper abdomen appears normal. Calcification of the aortic arch.Faint platelike atelectasis along the right minor fissure. IMPRESSION: Appropriate tube placement. Otherwise no acute cardiopulmonary disease. Electronically Signed: Allen Badillo MD 03/31/2025 11:02 AM EDT Workstation ID: [id number] us Pk Mckeon MD IMG DIAGNOSTIC IMAGING ORDER [place] Final Result * (ABNORMAL) POC Glucose Once (03/31/2025 10:23 AM EDT) Glucose 131(H) 70 - 130 mg/dL 03/31/2025 11:30 AM EDT [facility] Comment:Serial Number: [id number]: [id number] Blood 03/31/2025 10:2 3 AM EDT 03/31/2025 11:30 AM EDT us Pk cMkeon MD POINT OF CARE TEST ORDERABLE S Final Result [facility]
[address] [place] [address], * XR Outside Chest (03/31/2025 12:15 AM EDT) Narrative SYSTEMGENERATED, DOCUMENTATION - 04/01/2025 11:52 AM EDT This procedure was auto-finalized with no dictation required. us Radiant Outside Films IMG DIAGNOSTIC IMAGING ORD ERABLES Final Result * CT Outside Head (03/31/2025 12:10 AM EDT) Narrative SYSTEMGENERATED, DOCUMENTATION - 04/01/2025 11:39 AM EDT This procedure was auto-finalized with no dictation required. [facility] Outside Films IMG CT ORDERABLES Final Re sult * CT Outside Head (03/31/2025 12:05 AM EDT) Narrative SYSTEMGENERATED, DOCUMENTATION - 04/01/2025 11:38 AM EDT This procedure was auto-finalized with no dictation required. us [facility] Outside Films IMG CT ORDERABLES Final Re sult * CT Outside Neck (03/31/2025 12:00 AM EDT) Narrative SYSTEMGENERATED, DOCUMENTATION - 04/01/2025 11:38 AM EDT This procedure was auto-finalized with no dictation required. us [facility] Outside Films IMG CT ORDERABLES Final Re sult documented in this encounter Visit Diagnoses Diagnosis Seizure- Primary Other convulsions Oropharyngeal dysphagia Dysphagia, oropharyngeal phase Acute pain of right shoulder Aspiration pneumonitis -aspiration pneumonitis versus pneumonia Pneumonitis due to inhalation of food or vomitus Acute hypoxemic respiratory failure -noted from outside hospital where she was intubated. Alcohol dependence with withdrawal delirium -presented with seizures concerning for potential alcohol withdrawal Anemia -uncertain etiology or chronicity Unspecified anemia documented in this encounter Admitting Diagnoses Diagnosis Seizure Other convulsions documented in this encounter Administered Medications Inactive Administered Medications - up to 3 most recent administrations Medication Order MAR Action Action Date Dose Rate Site acetaminophen (TYLENOL) tablet 650 mg 650 mg, Oral, Every 6 Hours PRN, Mild Pain, Fever, Starting on Tue04/03/25 at 1313, If given for fever, use fever parameter: fever greater than 100.4 F Based on patient request - if ordered for moderate or severe pain, provider allows for administration of a medication prescribed for a lower pain scale. Do not exceed 4 grams of acetaminophen in a 24 hr period. Max dose of 2gm for AST/ALT greater than 120 units/L. If given for pain, use the following pain scale: Mild Pain = Pain Score of 1-3, CPOT 1-2 Moderate Pain = Pain Score of 4-6, CPOT 3-4 Severe Pain = Pain Score of 7-10, CPOT 5-8 Given 04/05/2025 4:24 AM EDT 650 mg Given 04/03/2025 2:35 PM EDT 650 mg acetaminophen (TYLENOL) tablet 650 mg 650 mg, Oral, 3 times daily, First dose (after last modification) on 04/06/25 at 1115, If given for fever, use fever parameter: fever greater than 100.4 F Based on patient request - if ordered for moderate or severe pain, provider allows for administration of a medication prescribed for a lower pain scale. Do not exceed 4 grams of acetaminophen in a 24 hr period. Max dose of 2gm for AST/ALT greater than 120 units/L. If given for pain, use the following pain scale: Mild Pain = Pain Score of 1-3, CPOT 1-2 Moderate Pain = Pain Score of 4-6, CPOT 3-4 Severe Pain = Pain Score of 7-10, CPOT 5-8 Given 04/09/2025 9:39 AM EDT 6 50 mg Given 04/08/2025 9:12 PM EDT 650 mg Given 04/08/2025 3:14 PM EDT 650 mg bisacodyl (DULCOLAX) EC tablet 5 mg 5 mg, Oral, Daily PRN, Constipation, Use if polyethylene glycol is ineffective, Starting on 03/31/25 at 1029, Use if no bowel movement after 12 hours. Swallow whole. Do not crush, split, or chew tablet. bisacodyl (DULCOLAX) suppository 10 mg 10 mg, Rectal, Daily PRN, Constipation, Use if bisacodyl oral is ineffective, Starting on 03/31/25 at 1029, Use if no bowel movement after 12 hours. Hold for diarrhea Calcium Replacement - Follow Nurse / BPA Driven Protocol Open Order & Select [facility] Electrolyte Replacement Protocol Algorithm to View Details cefTRIAXone (ROCEPHIN) 1,000 mg in sodium chloride 0.9 % 100 mL MBP 1,000 mg, Intravenous, at 200 mL/hr, Administer over 30 Minutes, Every 24 Hours, First dose on 03/31/25 at 1200, For 5 days, LR should be paused and flushing of the line with NS is recommended prior to and after completion of ceftriaxone infusion due to incompatibility. Do not co-adminster with calcium-containing solutions. Caution: Look alike/sound alike drug alert, Indications: PneumoniaIndications:Pneumonia New Bag 03/31/2025 12:39 PM EDT 1,000 mg 200 mL/hr chlordiazePOXIDE (LIBRIUM) capsule 10 mg 10 mg, Oral, Every 8 Hours Scheduled, First dose (after last modification) on [place] 04/04/25 at 1400, For 6 doses, (RORY) Caution: Look alike/sound alike drug alert. Given 04/06/2025 5:25 AM EDT 10 mg Given 04/05/2025 9:46 PM EDT 10 mg Given 04/05/2025 1:34 PM EDT 10 mg chlordiazePOXIDE (LIBRIUM) capsule 25 mg 25 mg, Oral, Every 8 Hours Scheduled, First dose (after last modification) on Tue04/02/25 at 1400, For 12 doses, (RORY) Caution: Look alike/sound alike drug alert. Given 04/04/2025 5:37 AM EDT 25 mg Given 04/03/2025 9:18 PM EDT 25 mg Given 04/03/2025 2:36 PM EDT 25 mg chlordiazePOXIDE (LIBRIUM) capsule 50 mg 50 mg, Nasogastric, Every 8 Hours Scheduled, First dose on Tue04/01/25 at 1400, For 5 days, (RORY) Caution: Look alike/sound alike drug alert. Given 04/01/2025 2:17 PM EDT 50 mg chlordiazePOXIDE (LIBRIUM) capsule 50 mg 50 mg, Oral, Every 8 Hours Scheduled, First dose (after last modification) on Tue04/01/25 at 2200, For 14 doses, (RORY) Caution: Look alike/sound alike drug alert. Given 04/02/2025 5:32 AM EDT 50 mg Given 04/01/2025 10:50 PM EDT 50 mg dexmedeTOMIDine (PRECEDEX) 400 mcg in 100 mL NS infusion 0.2-1.5 mcg/kg/hr 63.5 kg (3.175-23.8125 mL/hr, rounded to 3.2-23.8 mL/hr), Intravenous, Titrated, Starting on 04/01/25 at 1045, Begin infusion at 0.2 mcg/kg/hr and titrate up or down by 0.1-0.2 mcg/kg/hr every 15 minutes to maintain RASS goal. Maximum rate 1.5 mcg/kg/hr. Notify MD if not at RASS goal and requiring rate of greater than 1.5 mcg/kg/hr, or heart rate is less than 50 beats per minute, or MAP is less than 60 mmHg. Monitor RASS., RASS Goal: -1 TO -2, Titration Indication: Sedation New Bag 04/02/2025 4:13 AM EDT 0.2 mcg/kg/hr 3.2 mL/hr Rate/Dose Change 04/02/2025 1:57 AM EDT 0.2 mcg/kg/hr 3.2 mL/hr Rate/Dose Change 04/01/2025 10:45 PM EDT 0.3 mcg/kg/hr 4.8 mL/hr dextrose (D50W) (25 g/50 mL) IV injection 25 g 25 g, Intravenous, Every 15 Minutes PRN, Low Blood Sugar, Blood Sugar Less Than 70, Starting on 03/31/25 at 1042, Blood sugar less than 70; patient has IV access - Unresponsive, NPO or Unable To Safely Swallow dextrose (GLUTOSE) oral gel 15 g 15 g, Oral, Every 15 Minutes PRN, Low Blood Sugar, Blood sugar less than 70, Starting on 03/31/25 at 1042, BS<70, Patient Alert, Is not NPO, Can safely swallow. dextrose 5 % and lactated Ringer's infusion 75 mL/hr, Intravenous, Continuous, Starting on 04/02/25 at 1045, For 24 hours New Bag 04/03/2025 1:30 AM EDT 75 mL/hr 75 mL/hr New Bag 04/02/2025 10:17 AM EDT 75 mL/hr 75 mL/hr dextrose 5 % and lactated Ringer's infusion 75 mL/hr, Intravenous, Continuous, Starting on 04/03/25 at 1015, For 24 hours New Bag 04/04/2025 2:48 AM EDT 75 mL/hr 75 mL/hr New Bag 04/03/2025 2:40 PM EDT 75 mL/hr 75 mL/hr Currently Infusing 04/03/2025 10:11 AM EDT 75 mL/hr 75 m L/hr Diclofenac Sodium (VOLTAREN) 1 % gel 2 g 2 g, Topical, 3 Times Daily, First dose on Tue04/09/25 at 1015, Apply to right shoulder. (BKC) Do not cover area with occlusive dressing or apply any other med to affected area. Do not wash affected area for 1 hr after applying. Use dosing card for correct dose measurement. enoxaparin sodium (LOVENOX) syringe 40 mg 40 mg, Subcutaneous, Every 24 Hours, First dose on Tue03/31/25 at 1200, Give subcutaneous in abdomen only. Do not massage site after injection., Indications: VTE ProphylaxisIndications:VTE Prophylaxis Given 04/07/2025 11:08 AM EDT 40 mg Right Lower Abdomen Given 04/06/2025 12:16 PM EDT 40 mg R ight Lower Abdomen Given 04/05/2025 1:33 PM EDT 40 mg Le ft Arm fentaNYL 2500 mcg/250 mL NS infusion 50-300 mcg/hr (5-30 mL/hr), Intravenous, Titrated, Starting on Tue03/31/25 at 1130, For 7 days, Start infusion at 50 mcg/hr and titrate up or down by 12.5 - 50 mcg/hr every 5 - 10 minutes for NRS 7-10 or CPOT 5-8. Max. dose 300 mcg/hr. Caution: Look alike/sound alike drug alert If given for pain, use the following pain scale: Mild Pain = Pain Score of 1-3, CPOT 1-2 Moderate Pain = Pain Score of 4-6, CPOT 3-4 Severe Pain = Pain Score of 7-10, CPOT 5-8, Titration Indication: Sedation Rate/Dose Change 04/01/2025 12:22 PM EDT 50 mcg/hr 5 mL/hr Rate/Dose Change 04/01/2025 8:31 AM EDT 100 mcg/hr 10 mL/h r Rate/Dose Verify 04/01/2025 6:30 AM EDT 150 mcg/hr 15 mL/h r folic acid (FOLVITE) tablet 1 mg 1 mg, Oral, Daily, First dose (after last modification) on Tue04/02/25 at 0900 Given 04/09/2025 9:39 AM EDT 1 mg Given 04/08/2025 9:27 AM EDT 1 mg Given 04/07/2025 9:24 AM EDT 1 mg folic acid 1 mg in sodium chloride 0.9 % 50 mL IVPB 1 mg, Intravenous, at 100 mL/hr, Administer over 30 Minutes, Daily, First dose on 03/31/25 at 1215, Protect from light. New Bag 04/01/2025 8:16 AM EDT 1 mg 100 mL/hr New Bag 03/31/2025 1:56 PM EDT 1 mg 100 mL/hr glucagon (GLUCAGEN) injection 1 mg 1 mg, Intramuscular, Every 15 Minutes PRN, Low Blood Sugar, Blood Glucose Less Than 70, Starting on Tue03/31/25 at 1042, Blood Glucose Less Than 70 - Patient Without IV Access - Unresponsive, NPO or Unable To Safely Swallow Reconstitute powder for injection by adding 1 mL of bioinformatics support specialist-supplied sterile diluent or sterile water for injection to a vial containing 1 mg of the drug, to provide solutions containing 1 mg/mL. Shake vial gently to dissolve. HYDROcodone-acetaminophen (NORCO) 5-325 MG per tablet 1 tablet 1 tablet, Oral, Every 4 Hours PRN, Moderate Pain, Starting on 04/07/25 at 1404, For 10 days, [RORY] Do not exceed 4 grams of acetaminophen in a 24 hr period. Max dose of 2gm for AST/ALT greater than 120 units/L If given for pain, use the following pain scale: Mild Pain = Pain Score of 1-3, CPOT 1-2 Moderate Pain = Pain Score of 4-6, CPOT 3-4 Severe Pain = Pain Score of 7-10, CPOT 5-8 Given 04/09/2025 3:38 AM EDT 1 tablet Given 04/08/2025 11:24 PM EDT 1 tablet Given 04/08/2025 6:52 PM EDT 1 tablet lactated ringers bolus 1,000 mL 1,000 mL, Intravenous, at 1,000 mL/hr, Administer over 1 Hours, Once, On 03/31/25 at 1345, For 1 dose New Bag 03/31/2025 1:03 PM EDT 1,000 mL 1000 mL/hr lactated ringers bolus 1,000 mL 1,000 mL, Intravenous, at 1,000 mL/hr, Administer over 1 Hours, Once, On Tue03/31/25 at 2145, For 1 dose New Bag 03/31/2025 9:13 PM EDT 1,000 mL 1000 mL/hr lactated ringers bolus 1,000 mL 1,000 mL, Intravenous, at 1,000 mL/hr, Administer over 1 Hours, Once, On Tue04/02/25 at 1045, For 1 dose New Bag 04/02/2025 10:12 AM EDT 1,000 mL 1000 mL/hr lactated ringers bolus 1,000 mL 1,000 mL, Intravenous, at 1,000 mL/hr, Administer over 1 Hours, Once, On Tue04/03/25 at 1015, For 1 dose New Bag 04/03/2025 10:14 AM EDT 1,000 mL 1000 mL/hr lactated ringers infusion 125 mL/hr, Intravenous, Continuous, Starting on Tue03/31/25 at 2145, For 13 hours New Bag 04/01/2025 8:05 AM EDT 125 mL/hr 125 mL/hr Rate/Dose Verify 04/01/2025 6:30 AM EDT 125 mL/hr 125 mL/ hr Rate/Dose Verify 04/01/2025 4:00 AM EDT 125 mL/hr 125 mL/ hr levETIRAcetam (KEPPRA) injection 1,000 mg 1,000 mg, Intravenous, Every 12 Hours Scheduled, First dose on Tue03/31/25 at 2100, Caution: Look alike/sound alike drug alert. *When giving as IV push: Do not exceed 1000 mg/min.* Given 04/01/2025 8:13 PM EDT 1,000 mg Given 04/01/2025 8:04 AM EDT 1,000 mg Given 03/31/2025 8:34 PM EDT 1,000 mg levETIRAcetam (KEPPRA) tablet 1,000 mg 1,000 mg, Oral, 2 Times Daily, First dose on Tue04/02/25 at 0900, Mucous membrane irritant. Do not crush or chew tablet or capsule unless administered through a feeding tube. For tube route administration, disperse crushed tablets in 10 mL of water, shake for 5 minutes to dissolve, and administer immediately via enteral feeding tube. Caution: Look alike/sound alike drug alert. Given 04/02/2025 8:37 AM EDT 1,000 mg levETIRAcetam (KEPPRA) tablet 250 mg 250 mg, Oral, 2 Times Daily, First dose (after last modification) on Tue04/05/25 at 0900, Mucous membrane irritant. Do not crush or chew tablet or capsule unless administered through a feeding tube. For tube route administration, disperse crushed tablets in 10 mL of water, shake for 5 minutes to dissolve, and administer immediately via enteral feeding tube. Caution: Look alike/sound alike drug alert. Given 04/09/2025 9:39 AM E DT 250 mg Given 04/08/2025 9:12 PM EDT 250 mg Given 04/08/2025 9:27 AM EDT 250 mg levETIRAcetam (KEPPRA) tablet 500 mg 500 mg, Oral, 2 Times Daily, First dose (after last modification) on Tue04/03/25 at 2100, Mucous membrane irritant. Do not crush or chew tablet or capsule unless administered through a feeding tube. For tube route administration, disperse crushed tablets in 10 mL of water, shake for 5 minutes to dissolve, and administer immediately via enteral feeding tube. Caution: Look alike/sound alike drug alert. Given 04/04/2025 10:07 PM EDT 500 mg Given 04/04/2025 9:00 AM EDT 500 mg Given 04/03/2025 9:18 PM EDT 500 mg levETIRAcetam (KEPPRA) tablet 750 mg 750 mg, Oral, 2 Times Daily, First dose (after last modification) on Tue04/02/25 at 2100, Mucous membrane irritant. Do not crush or chew tablet or capsule unless administered through a feeding tube. For tube route administration, disperse crushed tablets in 10 mL of water, shake for 5 minutes to dissolve, and administer immediately via enteral feeding tube. Caution: Look alike/sound alike drug alert. Given 04/03/2025 10:12 AM EDT 750 mg Given 04/02/2025 8:02 PM EDT 750 mg LORazepam (ATIVAN) injection 1 mg 1 mg, Intravenous, Every 1 Hour PRN, Withdrawal, For CIWA-Ar 8-10, Starting on Tue04/01/25 at 1609, For 5 days, Reassess 1 Hour After Administration Given 04/05/2025 1:41 AM EDT 1 mg Magnesium Cardiology Dose Replacement - Follow Nurse / BPA Driven Protocol Open Order & Select [facility] Electrolyte Replacement Protocol Algorithm to View Details magnesium sulfate 2g/50 mL (PREMIX) infusion 2 g, Intravenous, Administer over 2 Hours, Every 2 Hours, First dose on Tue03/31/25 at 1615, For 3 doses New Bag 03/31/2025 8:33 PM EDT 2 g New Bag 03/31/2025 6:22 PM EDT 2 g New Bag 03/31/2025 4:22 PM EDT 2 g magnesium sulfate 4g/100mL (PREMIX) infusion 4 g, Intravenous, Administer over 4 Hours, Once, On Tue04/02/25 at 1130, For 1 dose New Bag 04/02/2025 12:24 PM EDT 4 g midodrine (PROAMATINE) tablet 10 mg 10 mg, Oral, Every 8 Hours, First dose on Tue03/31/25 at 2145, For 2 days, Hold if SBP > 140 and off pressors Given 04/02/2025 5:32 AM EDT 10 mg Given 04/01/2025 8:49 PM EDT 10 mg Given 04/01/2025 2:18 PM EDT 10 mg multivitamin (THERAGRAN) tablet 1 tablet 1 tablet, Oral, Daily, First dose on Tue04/05/25 at 0900, (BK) Given 04/09/2025 9:39 AM EDT 1 tablet Given 04/08/2025 9:27 AM EDT 1 tablet Given 04/07/2025 9:24 AM EDT 1 tablet mupirocin (BACTROBAN) 2 % nasal ointment 1 Application 1 Application, Each Nare, 2 Times Daily, First dose on Tue03/31/25 at 1130, For 5 days, Begin on day 1 of ICU admission and continue for 5 days, even if patient transferred out of critical care. MUPIROCIN APPLICATION: 1. Place patient's bed at 30 degrees, if tolerated. 2. Wash your hands with warm soapy water or use hand associate program manager. 3. Open the tube of mupirocin 2%. 4. Squeeze about 0.5 g (blueberry-size) of mupirocin from the tube onto a sterile applicator or a cotton swab. 5. Apply the swab directly into nostril. Ensure coating of the sides of the nostril. 6. Repeat with second sterile applicator for other nostril. 7. Gently press the sides of the nostrils together and massage gently for 60 seconds. (BKC) Given 04/04/2025 10:07 PM EDT 1 Application Given 04/04/2025 9:00 AM EDT 1 Application Given 04/03/2025 9:18 PM EDT 1 Application nicotine (NICODERM CQ) 21 MG/24HR patch 1 patch 1 patch, Transdermal, Administer over 24 Hours, Every 24 Hours Scheduled, First dose on 03/31/25 at 1330, Apply to clean, dry, nonhairy area of skin (typically upper arm or shoulder) Dispose of nicotine replacement therapies and their wrappers in non-hazardous pharmaceutical waste or in regular trash. Medication Applied 04/09/2025 9:40 AM EDT 1 patch Left Arm Medication Applied 04/08/2025 9:30 AM EDT 1 patch Left Arm Medication Applied 04/07/2025 9:25 AM EDT 1 patch Left Arm nitroglycerin (NITROSTAT) SL tablet 0.4 mg 0.4 mg, Sublingual, Every 5 Minutes PRN, Chest Pain, Starting on 03/31/25 at 1023, If Pain Unrelieved After 3 Doses Notify MD May administer up to 3 doses per episode. Hold if SBP less than 100. norepinephrine (LEVOPHED) 8 mg in 250 mL NS infusion (premix) 0.02-0.3 mcg/kg/min 67.1 kg (2.5163-37.7438 mL/hr, rounded to 2.52-37.74 mL/hr), Intravenous, Titrated, Starting on 03/31/25 at 1345, Initiate infusion at 0.02 mcg/kg/min and titrate up or down by 0.02 - 0.06 mcg/kg/min every 5 - 10 minutes to use the lowest dose possible to maintain a MAP greater than or equal to 65 mmHg. Contact provider if unable to maintain MAP target at the maximum dose or if MAP is greater than 95 mmHg. Once MAP target achieved, obtain vitals a minimum of every 30 minutes. Must contact provider and obtain new order to exceed dose of 0.3 mcg/kg/min. Concentration 8 mg/250 mL Central line preferred, if unavailable use large bore IV access with frequent nurse monitoring of IV site. Rate/Dose Change 04/02/2025 3:32 AM EDT 0.01 mcg/kg/min 1.26 mL/hr Restarted 04/02/2025 2:48 AM EDT 0.02 mcg/kg/min 2.52 mL/ hr Rate/Dose Change 04/02/2025 1:53 AM EDT 0.01 mcg/kg/min 1. 26 mL/hr OLANZapine (zyPREXA) injection 2.5 mg 2.5 mg, Intramuscular, Every 8 Hours PRN, Agitation, Starting on 04/06/25 at 1041, Dissolve the contents of the vial using 2.1 mL of Sterile Water for Injection for approximate concentration of 5 mg/mL. Caution: Look alike/sound alike drug alert. Given 04/07/2025 11:06 AM EDT 2.5 mg Right Anterior Thigh Given 04/06/2025 11:09 AM EDT 2.5 mg L eft Anterior Thigh pantoprazole (PROTONIX) EC tablet 40 mg 40 mg, Oral, Every Morning Before Breakfast, First dose on Tue04/02/25 at 0900, Do not crush or chew the capsules or tablets. The drug may not work as designed if the capsule or tablet is crushed or chewed. Swallow whole. Swallow whole; do not crush, split, or chew. Given 04/09/2025 9:39 AM EDT 40 mg Given 04/08/2025 9:27 AM EDT 40 mg Given 04/07/2025 9:24 AM EDT 40 mg pantoprazole (PROTONIX) injection 40 mg 40 mg, Intravenous, Every 24 Hours Scheduled, First dose on Tue03/31/25 at 1215, Dilute with 10 mL of 0.9% NaCl and give IV push over 2 minutes., Indications: Stress Ulcer ProphylaxisIndications:Stress Ulcer Prophylaxis Given 04/01/2025 8:03 AM EDT 40 mg Given 03/31/2025 12:31 PM EDT 40 mg PHENobarbital 227.5 mg in sodium chloride 0.9 % 100 mL IVPB 227.5 mg (rounded from 228 mg = 4 mg/kg 57 kg [place] weight), Intravenous, at 600 mL/hr, Administer over 10 Minutes, Once, On 03/31/25 at 2045, For 1 dose, Patient must be on telemetry and continuous pulse oximetry. New Bag 03/31/2025 11:00 PM EDT 227.5 mg 600 mL/hr PHENobarbital injection 178.75 mg 178.75 mg (rounded from 171 mg = 3 mg/kg 57 kg [place] weight), Intravenous, Once, On Tue03/31/25 at 2345, For 1 dose, IV push max rate of 60 mg/min. Given 04/01/2025 1:57 AM EDT 178.75 mg PHENobarbital injection 178.75 mg 178.75 mg (rounded from 171 mg = 3 mg/kg 57 kg [place] weight), Intravenous, Once, On 04/01/25 at 0245, For 1 dose, IV push max rate of 60 mg/min. Given 04/01/2025 6:26 AM EDT 178.75 mg Phosphorus Replacement - Follow Nurse / BPA Driven Protocol Open Order & Select [facility] Electrolyte Replacement Protocol Algorithm to View Details piperacillin-tazobactam (ZOSYN) 4.5 g IVPB in 100 mL NS MBP (CD) 4.5 g, Intravenous, Administer over 30 Minutes, Once, On Tue03/31/25 at 1330, For 1 dose New Bag 03/31/2025 3:28 PM EDT 4.5 g piperacillin-tazobactam (ZOSYN) 4.5 g IVPB in 100 mL NS MBP (CD) 4.5 g, Intravenous, Administer over 4 Hours, Every 8 Hours, First dose on Tue03/31/25 at 2100, For 5 days, Indications: PneumoniaIndications:Pneumonia New Bag 04/05/2025 1:33 PM EDT 4.5 g New Bag 04/05/2025 5:44 AM EDT 4.5 g New Bag 04/04/2025 10:08 PM EDT 4.5 g polyethylene glycol (MIRALAX) packet 17 g 17 g, Oral, Daily PRN, Constipation, Use if senna-docusate is ineffective, Starting on Tue03/31/25 at 1029, Use if no bowel movement after 12 hours. Mix in 6-8 ounces of water. Use 4-8 ounces of water, tea, or juice for each 17 gram dose. potassium chloride (KLOR-CON) packet 40 mEq 40 mEq, Oral, Every 4 Hours, First dose on 03/31/25 at 1615, For 2 doses, For use with a feeding tube. Mix in at least 4 oz. of liquid. Given 03/31/2025 8:34 PM EDT 40 mEq Given 03/31/2025 4:22 PM EDT 40 mEq potassium chloride (KLOR-CON) packet 40 mEq 40 mEq, Oral, Every 4 Hours, First dose on 04/06/25 at 1130, For 2 doses, For use with a feeding tube. Mix in at least 4 oz. of liquid. Given 04/06/2025 4:24 PM EDT 40 mEq Given 04/06/2025 10:55 AM EDT 40 mEq Potassium Replacement - Follow Nurse / BPA Driven Protocol Open Order & Select S Electrolyte Replacement Protocol Algorithm to View Details propofol (DIPRIVAN) 10 MG/ML injection - ADS Override Pull Starting on [place] 03/31/25 at 1024, For 1 dose, Created by cabinet override propofol (DIPRIVAN) infusion 10 mg/mL 100 mL 5-50 mcg/kg/min 67.1 kg (2.013-20.13 mL/hr, rounded to 2.01-20.13 mL/hr), Intravenous, Titrated, Starting on [place] 03/31/25 at 1130, Begin infusion at 5 mcg/kg/min and titrate up or down by 5 - 10 mcg/kg/min every 3 - 5 minutes to maintain Target Arousal Level (RASS). Notify MD if not at goal and requiring more than 50 mcg/kg/min. Infuse into dedicated line, change vial and tube every 12 hours. Patient must be intubated., Titration Indication: Sedation Rate/Dose Change 04/01/2025 12:26 PM EDT 5 mcg/kg/min 2.01 mL/hr Rate/Dose Change 04/01/2025 12:22 PM EDT 10 mcg/kg/min 4.0 3 mL/hr Rate/Dose Change 04/01/2025 12:13 PM EDT 20 mcg/kg/min 8.0 5 mL/hr sennosides-docusate (PERICOLACE) 8.6-50 MG per tablet 2 tablet 2 tablet, Oral, 2 Times Daily, First dose on Tue03/31/25 at 1130, HOLD MEDICATION IF PATIENT HAS HAD BOWEL MOVEMENT. Start bowel management regimen if patient has not had a bowel movement after 12 hours. Given 04/09/2025 9:39 AM EDT 2 tablets Given 04/05/2025 9:06 AM EDT 2 tablets Given 04/04/2025 9:00 AM EDT 2 tablets sodium chloride 0.9 % flush 10 mL 10 mL, Intravenous, Every 12 Hours Scheduled, First dose on 03/31/25 at 1130 Given 04/07/2025 9:23 AM EDT 10 mL Given 04/06/2025 9:46 PM EDT 10 mL Given 04/06/2025 9:29 AM EDT 10 mL sodium chloride 0.9 % flush 10 mL 10 mL, Intravenous, As Needed, Line Care, Starting on Tue03/31/25 at 1029 Given 04/04/2025 9:00 AM EDT 10 mL Given 03/31/2025 8:34 PM EDT 10 mL thiamine (B-1) injection 200 mg 200 mg, Intravenous, Every 8 Hours Scheduled, First dose on Tue03/31/25 at 1400, For 5 days, Doses of up to 250mg, give over 1-2 minutes (IV push). Doses 250mg and above, give over 30 minutes. Given 04/01/2025 5:11 AM EDT 200 mg Given 03/31/2025 11:00 PM EDT 200 mg Given 03/31/2025 1:56 PM EDT 200 mg thiamine (VITAMIN B-1) tablet 100 mg 100 mg, Oral, Daily, First dose (after last modification) on Tue04/03/25 at 0900 Given 04/09/2025 9:39 AM EDT 100 mg Given 04/08/2025 9:27 AM EDT 100 mg Given 04/07/2025 9:24 AM EDT 100 mg thiamine (VITAMIN B-1) tablet 200 mg 200 mg, Nasogastric, 3 Times Daily, First dose on Tue04/01/25 at 1400, For 1 day Given 04/01/2025 2:28 PM EDT 200 mg thiamine (VITAMIN B-1) tablet 200 mg 200 mg, Oral, 3 Times Daily, First dose (after last modification) on 04/01/25 at 2100, For 2 doses Given 04/02/2025 8:36 AM EDT 200 mg Given 04/01/2025 8:49 PM EDT 200 mg documented in this encounter Active and Recently Administered Medications Times are shown in EDT. Scheduled Medication Order 04/07/2025 04/08/2025 04/09/2025 acetaminophen (TYLENOL) tablet 650 mg 650 mg, Oral, 3 times daily, First dose (after last modification) on 04/06/25 at 1115, If given for fever, use fever parameter: fever greater than 100.4 F Based on patient request - if ordered for moderate or severe pain, provider allows for administration of a medication prescribed for a lower pain scale. Do not exceed 4 grams of acetaminophen in a 24 hr period. Max dose of 2gm for AST/ALT greater than 120 units/L. If given for pain, use the following pain scale: Mild Pain = Pain Score of 1-3, CPOT 1-2 Moderate Pain = Pain Score of 4-6, CPOT 3-4 Severe Pain = Pain Score of 7-10, CPOT 5-8 0923 (Given - Provider: Becky Joaquin RN)1417 (Given - Provider: Becky Joaquin RN)1999 (Given - Provider: Salina Allan RN) 0927 (Given - Provider: Steph Mcnair, TYRONE)1514 (Given - Provider: Susannah Ramos, TYRONE)2112 (Given - Provider: Kami Moreno, TYRONE) 0939 (Given - Provider: Lula Vu, TYRONE) Diclofenac Sodium (VOLTAREN) 1 % gel 2 g 2 g, Topical, 3 Times Daily, First dose on Tue04/09/25 at 1015, Apply to right shoulder. ([facility]) Do not cover area with occlusive dressing or apply any other med to affected area. Do not wash affected area for 1 hr after applying. Use dosing card for correct dose measurement. 1015 (Due) enoxaparin sodium (LOVENOX) syringe 40 mg 40 mg, Subcutaneous, Every 24 Hours, First dose on Tue03/31/25 at 1200, Give subcutaneous in abdomen only. Do not massage site after injection., Indications: VTE Prophylaxis 1108 (Given - Provider: Becky Joaquin RN) 1410 (Not Given - Provider: Steph Mcnair RN - Reason: Patient/family refused) folic acid (FOLVITE) tablet 1 mg 1 mg, Oral, Daily, First dose (after last modification) on Tue04/02/25 at 0900 0924 (Given - Provider: Becky Joaquin RN) 0927 (Given - Provider: Steph Mcnair RN) 0939 (Given - Provider: Lula Vu RN) levETIRAcetam (KEPPRA) tablet 250 mg 250 mg, Oral, 2 Times Daily, First dose (after last modification) on Tue04/05/25 at 0900, Mucous membrane irritant. Do not crush or chew tablet or capsule unless administered through a feeding tube. For tube route administration, disperse crushed tablets in 10 mL of water, shake for 5 minutes to dissolve, and administer immediately via enteral feeding tube. Caution: Look alike/sound alike drug alert. 0924 (Given - Provider: Becky Joaquin RN)1999 (Given - Provider: Salina Allan RN) 926 (Given - Provider: Steph Mcnair RN)2111 (Given - Provider: Kami Moreno RN) 0939 (Given - Provider: Lula Vu RN) multivitamin (THERAGRAN) tablet 1 tablet 1 tablet, Oral, Daily, First dose on Tue04/05/25 at 0900, ([facility]) 0924 (Given - Provider: Becky Joaquin RN) 09 (Given - Provider: Steph Mcnair RN) 0939 (Given - Provider: Lula Vu RN) nicotine (NICODERM CQ) 21 MG/24HR patch 1 patch 1 patch, Transdermal, Administer over 24 Hours, Every 24 Hours Scheduled, First dose on Tue03/31/25 at 1330, Apply to clean, dry, nonhairy area of skin (typically upper arm or shoulder) Dispose of nicotine replacement therapies and their wrappers in non-hazardous pharmaceutical waste or in regular trash. 0924 (Medication Removed - Provider: Becky Joaquin RN)0925 (Medication Applied - Provider: Becky Joaquin RN) 0859 (Medication Removed - Provider: Steph Mcnair RN)0930 (Medication Applied - Provider: Steph Mcnair RN) 0939 (Medication Removed - Provider: Lula Vu, RN)0940 (Medication Applied - Provider: Lula Vu RN)1126 (Due: Medication Removed - Provider: Automatic Discharge Provider - Comment: Time automatically adjusted from order being discontinued) pantoprazole (PROTONIX) EC tablet 40 mg 40 mg, Oral, Every Morning Before Breakfast, First dose on Tue04/02/25 at 0900, Do not crush or chew the capsules or tablets. The drug may not work as designed if the capsule or tablet is crushed or chewed. Swallow whole. Swallow whole; do not crush, split, or chew. 0924 (Given - Provider: Becky Joaquin RN) 0927 (Given - Provider: Steph Mcnair RN) 0939 (Given - Provider: Lula Vu RN) sennosides-docusate (PERICOLACE) 8.6-50 MG per tablet 2 tablet(Linked Group 1) 2 tablet, Oral, 2 Times Daily, First dose on Tue03/31/25 at 1130, HOLD MEDICATION IF PATIENT HAS HAD BOWEL MOVEMENT. Start bowel management regimen if patient has not had a bowel movement after 12 hours. 0922 (Not Given - Provider: Becky Joaquin RN - Reason: Patient/family refused)2000 (Not Given - Provider: Salina Allan RN - Reason: Other (Comment Required) - Comment: multiple loose stools today) 0856 (Not Given - Provider: Steph Mcnair RN - Reason: Contraindicated)211 2 (Not Given - Provider: Kami Moreno RN - Reason: Patient/family refused) 0939 (Given - Provider: Lula Vu RN) sodium chloride 0.9 % flush 10 mL 10 mL, Intravenous, Every 12 Hours Scheduled, First dose on Tue03/31/25 at 1130 0923 (Given - Provider: Becky Joaquin RN)2000 (Not Given - Provider: Salina Allan RN - Reason: Loss of IV access - Comment: IV removed per MD order) 0900 (Canceled Entry - Provider: Steph Mcnair RN)2115 (Not Given - Provider: Kami Moreno RN - Reason: Loss of IV access) 0949 (Not Given - Provider: Lula Vu RN - Reason: Order parameters not met) thiamine (VITAMIN B-1) tablet 100 mg(Linked Group 2) 100 mg, Oral, Daily, First dose (after last modification) on Tue04/03/25 at 0900 0924 (Given - Provider: Becky Joaquin RN) 0927 (Given - Provider: Steph Mcnair RN) 0939 (Given - Provider: Lula Vu, TYRONE) PRN Medication Order 04/07/2025 04/08/2025 04/09/2025 bisacodyl (DULCOLAX) EC tablet 5 mg(Linked Group 1) 5 mg, Oral, Daily PRN, Constipation, Use if polyethylene glycol is ineffective, Starting on 03/31/25 at 1029, Use if no bowel movement after 12 hours. Swallow whole. Do not crush, split, or chew tablet. bisacodyl (DULCOLAX) suppository 10 mg(Linked Group 1) 10 mg, Rectal, Daily PRN, Constipation, Use if bisacodyl oral is ineffective, Starting on 03/31/25 at 1029, Use if no bowel movement after 12 hours. Hold for diarrhea Calcium Replacement - Follow Nurse / BPA Driven Protocol Open Order & Select S Electrolyte Replacement Protocol Algorithm to View Details dextrose (D50W) (25 g/50 mL) IV injection 25 g 25 g, Intravenous, Every 15 Minutes PRN, Low Blood Sugar, Blood Sugar Less Than 70, Starting on 03/31/25 at 1042, Blood sugar less than 70; patient has IV access - Unresponsive, NPO or Unable To Safely Swallow dextrose (GLUTOSE) oral gel 15 g 15 g, Oral, Every 15 Minutes PRN, Low Blood Sugar, Blood sugar less than 70, Starting on 03/31/25 at 1042, BS<70, Patient Alert, Is not NPO, Can safely swallow. glucagon (GLUCAGEN) injection 1 mg 1 mg, Intramuscular, Every 15 Minutes PRN, Low Blood Sugar, Blood Glucose Less Than 70, Starting on 03/31/25 at 1042, Blood Glucose Less Than 70 - Patient Without IV Access - Unresponsive, NPO or Unable To Safely Swallow Reconstitute powder for injection by adding 1 mL of bioinformatics support specialist-supplied sterile diluent or sterile water for injection to a vial containing 1 mg of the drug, to provide solutions containing 1 mg/mL. Shake vial gently to dissolve. HYDROcodone-acetaminophe n (NORCO) 5-325 MG per tablet 1 tablet 1 tablet, Oral, Every 4 Hours PRN, Moderate Pain, Starting on 04/07/25 at 1404, For 10 days, [RORY] Do not exceed 4 grams of acetaminophen in a 24 hr period. Max dose of 2gm for AST/ALT greater than 120 units/L If given for pain, use the following pain scale: Mild Pain = Pain Score of 1-3, CPOT 1-2 Moderate Pain = Pain Score of 4-6, CPOT 3-4 Severe Pain = Pain Score of 7-10, CPOT 5-8 1416 (Given - Provider: Becky Joaquin RN)1900 (Given - Provider: Becky Joaquin RN) 0206 (Given - Provider: Salina Allan RN)1852 (Given - Provider: Steph Mcnair RN)2324 (Given - Provider: Kami Moreno, TYRONE) 0338 (Given - Provider: Kami Moreno RN) Magnesium Cardiology Dose Replacement - Follow Nurse / BPA Driven Protocol Open Order & Select [facility] Electrolyte Replacement Protocol Algorithm to View Details nitroglycerin (NITROSTAT) SL tablet 0.4 mg 0.4 mg, Sublingual, Every 5 Minutes PRN, Chest Pain, Starting on 03/31/25 at 1023, If Pain Unrelieved After 3 Doses Notify MD May administer up to 3 doses per episode. Hold if SBP less than 100. OLANZapine (zyPREXA) injection 2.5 mg 2.5 mg, Intramuscular, Every 8 Hours PRN, Agitation, Starting on 04/06/25 at 1041, Dissolve the contents of the vial using 2.1 mL of Sterile Water for Injection for approximate concentration of 5 mg/mL. Caution: Look alike/sound alike drug alert. 1106 (Given - Provider: Becky Joaquin RN) Phosphorus Replacement - Follow Nurse / BPA Driven Protocol Open Order & Select [facility] Electrolyte Replacement Protocol Algorithm to View Details polyethylene glycol (MIRALAX) packet 17 g(Linked Group 1) 17 g, Oral, Daily PRN, Constipation, Use if senna-docusate is ineffective, Starting on 03/31/25 at 1029, Use if no bowel movement after 12 hours. Mix in 6-8 ounces of water. Use 4-8 ounces of water, tea, or juice for each 17 gram dose. Potassium Replacement - Follow Nurse / BPA Driven Protocol Open Order & Select [facility] Electrolyte Replacement Protocol Algorithm to View Details Linked Groups Order Group 1: sennosides-docusate (PERICOLACE) 8.6-50 MG per tablet 2 tabletJump to med 2 tablet, Oral, 2 Times Daily, First dose on 03/31/25 at 1130, HOLD MEDICATION IF PATIENT HAS HAD BOWEL MOVEMENT. Start bowel management regimen if patient has not had a bowel movement after 12 hours. And polyethylene glycol (MIRALAX) packet 17 gJump to med 17 g, Oral, Daily PRN, Constipation, Use if senna-docusate is ineffective, Starting on 03/31/25 at 1029, Use if no bowel movement after 12 hours. Mix in 6-8 ounces of water. Use 4-8 ounces of water, tea, or juice for each 17 gram dose. And bisacodyl (DULCOLAX) EC tablet 5 mgJump to med 5 mg, Oral, Daily PRN, Constipation, Use if polyethylene glycol is ineffective, Starting on 03/31/25 at 1029, Use if no bowel movement after 12 hours. Swallow whole. Do not crush, split, or chew tablet. And bisacodyl (DULCOLAX) suppository 10 mgJump to med 10 mg, Rectal, Daily PRN, Constipation, Use if bisacodyl oral is ineffective, Starting on 03/31/25 at 1029, Use if no bowel movement after 12 hours. Hold for diarrhea Group 2: thiamine (VITAMIN B-1) tablet 200 mg (COMPLETED) 200 mg, Oral, 3 Times Daily, First dose (after last modification) on 04/01/25 at 2100, For 2 doses Followed by thiamine (VITAMIN B-1) tablet 100 mgJump to med 100 mg, Oral, Daily, First dose (after last modification) on 04/03/25 at 0900 documented in this encounter Care Teams Mechanical Intern Relationship Specialty Start Date End Date Provider, [place] [address] PCP - General 03/31/25 documented as of this encounter
--- OUTSIDE RECORDS SUMMARY | 2025-03-31 09:18 | XMS_ITS | Encounter Summary ---
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 Name Role Phone Provider, No Known Primary Care Provider Unavail able Reason for Visit * Auth/Cert Specialty Diagnoses / Procedures Referred By Contac t Referred To Contact Diagnoses Seizures (respiratory distress, seizure) Referral ID Status Reason Start Date Expiration Date Visits Re quested Visits Authorized [id number] 1 1 Encounter Details Date Type Department Care Team (Late st Contact Info) Description 03/31/2025 10:18 AM EDT - 04/09/2025 11:26 AM EDT Hospital Encounter [facility] [address]E [address] [place] [id number] Pk Mckeon MD [address] [place] [address] Susan Alvarado MD [address] [facility] [address] [place] [address] Jagruti Goins MD [address] [facility] [address] [place] [address] Oropharyngeal dysphagia (Primary Dx); Acute pain of [...] and heating? Not hard at all 04/01/2025 [facility] - Occupational Stress [...] things needed for daily living? No 04/01/2025 [facility] Utilities Answer Date Recorded In the [...] GED or equivalent No 04/01/2025 Preferred Language Tongan 04/01/2025 Comments Unknown Sex and Gender Information [...] 3:16 PM EDT Yeimi Padron MSW * Alcohol Use Question Answer Date of Assessment Author Q1: [...] 3:16 PM EDT Yeimi Padron MSW * Suicidal Ideation (Past 1 Month) Question Answer Date of Assessment Author 1. Wish to be (Past 1 Month) No 025 3:59 AM EDT Modesta Gunderson RN 2. Non-Specific Active Suici marissa Thoughts (Past 1 Month) No 04/03/2025 3:59 AM EDT Modesta Gunderson RN * Calculated C-SSRS Risk Score (Lifetime/Recent) Answer Date of Assessment Author No Risk Indicated 04/03/2025 3:59 AM EDT Modesta Gunderson RN * Crawford Suicide Severity Rating Scale (Screener/Recent Self-Report) Question Answer Date of Assessment Author 6. Suicidal Behavior (Lifetime) No 3:59 AM EDT Modesta Gunderson RN documented as of this encounter Discharge Summaries * Yumiko Thomas RN - 04/09/2025 11:05 AM EDT Images from the original note were not included. Regine Anguiano (70 y.o. 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 HVAC R TECH recommended ongoing aspiration precautions, small bites and [...] stable for discharge to inpatient rehabilitation at [facility] for continued management of dysphagia, cognitive-linguistic [...] Results from last 7 days Lab Units 04/06/251912 04/06/25 0907 04/03/25 0349 WBC 10*3/mm3 -- [...] MD 04/06/2025 12:46 PM EDT Workstation ID: [id number] CT Head Without Contrast Result Date: 04/01/2025 [...] MD 04/01/2025 11:48 AM EDT Workstation ID: [id number] XR Chest 1 View Result Date: 04/01/2025 Impression: Impression: 1.Increased left basilar atelectasis. 2.Mild discoid atelectasis in the right midlung. Electronically Signed: Adrián Puri MD 04/01/2025 7:52 AM EDT Workstation ID: [id number] MRI Brain Without Contrast Result Date: 04/01/2025 Impression: Impression: 1.No acute ischemic change. 2.Small subdural hematoma along the left occipital convexity. 3.Diffuse atrophy and white matter changes compatible sequela of small vessel ischemic disease in this age group. 4.Bilateral mastoid effusions left greater than right. Findings were com municated to the medical staff services coordinator, Horace at 6:03 a.m. at the time of interpretation ElectronicallySigned: Pérez Ardon MD 04/01/2025 6:05 AM EDT Workstation ID: [id number] EEG Result Date: 03/31/2025 Impression: Diffuse cerebral dysfunction of mild-moderate degree, nonspecific but most commonly seen due to toxic/metabolic or hypoxemic cause No ongoing seizures are present This report is transcribed using the MedSocket dictation system. XR Abdomen KUB Result Date: 03/31/2025 Impression: Impression: 1.Nasogastric tube tip is within the stomach. 2.Atelectatic changes suggested in the visualized lower lungs. Electronically Signed: Marques Roberto MD 03/31/2025 1:13 PM EDT Workstation ID: [id number] XR Chest 1 View Result Date: 03/31/2025 Impression: Appropriate tube placement. Otherwise no acute cardiopulmonary disease. Electronically Signed: Allen Badillo MD 03/31/2025 11:02 AM EDT Workstation ID: [id number] I have personally reviewed the therapy plans: [...] from the original note were not included. [facility] Medicine Services DISCHARGE SUMMARY Patient Name: [...] to demonstrate cognitive-linguistic deficits and mild dysarthria. HVAC R TECH recommended ongoing aspiration precautions, small bites and [...] stable for discharge to inpatient rehabilitation at [facility] for continued management of dysphagia, cognitive-linguistic [...] MD 04/06/2025 12:46 PM EDT Workstation ID: [id number] CT Head Without Contrast Result Date: 04/01/2025 [...] MD 04/01/2025 11:48 AM EDT Workstation ID: [id number] XR Chest 1 View Result Date: 04/01/2025 Impression: Impression: 1.Increased left basilar atelectasis. 2.Mild discoid atelectasis in the right midlung. Electronically Signed: Adrián Puri MD 04/01/2025 7:52 AM EDT Workstation ID: [id number] MRI Brain Without Contrast Result Date: 04/01/2025 Impression: Impression: 1.No acute ischemic change. 2.Small subdural hematoma along the left occipital convexity. 3.Diffuse atrophy and white matter changes compatible sequela of small vessel ischemic disease in this age group. 4.Bilateral mastoid effusions left greater than right. Findings were com municated to the medical staff services coordinator, Horace at 6:03 a.m. at the time of interpretation ElectronicallySigned: Pérez Ardon MD 04/01/2025 6:05 AM EDT Workstation ID: [id number] EEG Result Date: 03/31/2025 Impression: Diffuse cerebral dysfunction of mild-moderate degree, nonspecific but most commonly seen due to toxic/metabolic or hypoxemic cause No ongoing seizures are present This report is transcribed using the MedSocket dictation system. XR Abdomen KUB Result Date: 03/31/2025 Impression: Impression: 1.Nasogastric tube tip is within the stomach. 2.Atelectatic changes suggested in the visualized lower lungs. Electronically Signed: Marques Roberto MD 03/31/2025 1:13 PM EDT Workstation ID: [id number] XR Chest 1 View Result Date: 03/31/2025 Impression: Appropriate tube placement. Otherwise no acute cardiopulmonary disease. Electronically Signed: Allen Badillo MD 03/31/2025 11:02 AM EDT Workstation ID: [id number] I have personally reviewed the therapy plans: [...] not included. Regine Anguiano (70 y.o. 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-[employer] Marital Status Admission Date 03/31/2025 Admission Type Urgent Admitting Provider Susan Avlarado MD Attending Provider Susan Alvarado MD Department, Room/Bed [facility] 3E, S347/1 Discharge Date Discharge Disposition Discharge [...] Plan Fax Number Effective Dates [address] 01/11/2022 - None Entered [facility] [address] Subscriber Name Subscriber Date Member ID REGINE ANGUIANO 1955 [id number] 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 1636 Current Facility-Administered Medications Medication Dose Route Frequency Provider Last Rate Last Admin acetaminophen (TYLENOL) tablet 650 mg 650 mg Oral Q6H PRN Yusra Hines, DNP, CARD READER 650 mg at 04/05/25 0424 sennosides-docusate (PERICOLACE) [...] Raymond Reed PharmD 1 mg at 04/05/25 0906 glucagon (GLUCAGEN) injection 1 mg 1 mg Intramuscular Q15 Min PRN Narda Davila PA-C insulin regular (humuLIN R,novoLIN R) injection 2-7 Units 2-7 Units Subcutaneous Q6H Narda Davila PA-C levETIRAcetam (KEPPRA) tablet 250 mg 250 mg Oral BID Michale Bolton MD 250 mg at 04/05/25 0906 LORazepam (ATIVAN) tablet 1 mg 1 mg Oral Q1H PRN Raymond Reed, PharmD Or LORazepam (ATIVAN) injection 1 mg 1 [...] mg 100 mg Oral Daily Raymond Reed, AyoD 100 mg at 04/05/25 0906 Physician Progress [...] on file. General Information Row Name 04/02/25 131 Physical Therapy Time and Intention Document Type evaluation -KE Mode of Treatment physical therapy;co-treatment - Row Name 04/02/25 131 General Information Patient [...] Bed Mobility Bed Mobility supine-sit -KE Supine-Sit Bee (Bed Mobility) moderate assist (50% patient effort);2 person assist;verbal cues -KE Assistive Device (Bed Mobility) bed rails;head of bed elevated;repositioning sheet -KE Comment, (Bed Mobility) VC/TCs for sequencing -KE Row Name 04/02/25 1319 Bed-Chair Transfer Bed-Chair Bee (Transfers) maximum assist (25% patient effort);2 person assist;verbal cues -KE Assistive Device (Bed-Chair Transfers) other (see comments) B UE support -KE Comment, (Bed-Chair Transfer) attempted initial t/f w/ FWW, pt unable to sequence req return to sitand use of B UE support for stand pivot to chair -KE Row Name 04/02/25 1319 Sit-Stand Transfer Sit-Stand Bee (Transfers) moderate assist (50% patient effort);2 person [...] = Cosigned By Initials Name Provider Type Wnedi Flowers, PT Physical Therapist Goals/Plan Row Name 04/02/25 132 Bed Mobility Goal 1 (PT) Activity/Assistive Device (Bed Mobility Goal 1, PT) sit to supine/supine to sit -KE Bee Level/Cues Needed (Bed Mobility Goal 1, PT) minimum assist (75% or more patient effort) -KE Time Frame (Bed Mobility Goal 1, PT) short term goal (STG);5 days -KE Progress/Outcomes (Bed Mobility Goal 1, PT) new goal - Row Name 04/02/25 1328 Transfer Goal 1 (PT) Activity/Assistive Device (Transfer Goal 1, PT) vvu-fa-vfrky/qeegn-jl-xsd;chg-kj-tozwe/qczwy-cm-mni-KE Bee Level/Cues Needed (Transfer Goal 1, PT) minimum assist (75% or more patient effort) -KE Time Frame (Transfer Goal 1, PT) long term care pharmacist goal (LTG);10 days -KE Progress/Outcome (Transfer Goal 1, PT) new goal -KE Row Name 04/02/25 1325 Gait Training Goal 1 (PT) Activity/Assistive Device (Gait Training Goal 1, PT) gait (walking locomotion);assistive device use;improve balance and speed;walker, rolling -KE Bee Level (Gait Training Goal 1, PT) minimum assist (75% or more patient effort) -KE Distance (Gait Training Goal 1, PT) 50 -KE Time Frame (Gait Training Goal 1, PT) long term care pharmacist goal (LTG);10 days -KE Progress/Outcome (Gait Training Goal 1, PT) new goal - Row Name 04/02/25 1324 Therapy Assessment/Plan (PT) [...] Therapist Physical Therapy Education Title: PT OT HVAC R TECH Therapies (In Progress) Topic: Physical Therapy (In [...] Dates Name Provider Type Tim STARR 04/28/23 Wendi Moon PT Physical Therapist PT PT Recommendation and [...] Description Service Date Service Provider Modifiers Qty [id number] PT EVAL MOD COMPLEXITY 4 04/02/2025 Wendi Boswell PT GP 1 PT G-Codes Outcome Measure Options: AM-PAC 6 Clicks Basic Mobility (PT) AM-PAC 6 Clicks Score (PT): 12 PT Discharge Summary Anticipated Discharge Disposition (PT): [facility] facility Wendi Boswell PT 04/02/2025 1326 Occupational [...] Bed Mobility Bed Mobility supine-sit;scooting/bridging -CS Scooting/Bridging Bee (Bed Mobility) moderate assist (50% patient effort);1 person assist;verbal cues;nonverbal cues (demo/gesture) -CS Supine-Sit Bee (Bed Mobility) 2 person assist;verbal cues;nonverbal cues [...] x 3 for sampson-care following bowel incontinence, NEZ PERCE for hand placement -CS Row Name 04/05/25 1126 Bed-Chair Transfer Bed-Chair Bee (Transfers) moderate assist (50% patient effort);2 person assist;verbal cues;nonverbal cues (demo/gesture) - Assistive Device (Bed-Chair Transfers) other (see comments) -CS Row Name 04/05/25 112 Sit-Stand Transfer Sit-Stand Bee (Transfers) moderate assist (50% patient effort);1 person assist;1 person tomanage equipment;verbal cues;nonverbal cues (demo/gesture) - Assistive Device (Sit-Stand Transfers) walker, front-wheeled -CS Row Name 04/05/25 1126 Activities of Daily Living BADL Assessment/Intervention lower body dressing;grooming;feeding;upper body dressing -CS Row Name 04/05/25 112 Lower Body Dressing Assessment/Training Bee Level (Lower Body Dressing) doff;don;socks;dependent (less than 25% patient effort) -CS Position (Lower Body Dressing) edge of bed sitting -CS Row Name 04/05/25 1126 Grooming Assessment/Training Bee Level (Grooming) wash face, hands;moderate assist (50% patient effort);hair care, combing/brushing;dependent (less than 25% patient effort) -CS Row Name 04/05/25 1126 Self-Feeding Assessment/Training Bee Level (Feeding) prepare tray/open items;maximum assist (25% patient effort);liquids tomouth;scoop food and bring to mouth;minimum assist (75% patient effort);verbal cues -CS Comment, (Feeding) low vision -CS Row Name 04/05/25 112 Upper Body Dressing Assessment/Training Bee Level (Upper Body Dressing) don;doff;front opening garment;minimum [...] hurt -CS Posttreatment Pain Rating 0-->no hurt - Row Name 04/05/25 1130 Plan of Care [...] Review/Discharge Plan (OT) Anticipated Discharge Disposition (OT) [facility] facility - Row Name 04/05/25 1130 Vital [...] Therapist Occupational Therapy Education Title: PT OT HVAC R TECH Therapies (In Progress) Topic: Occupational Therapy (Done) [...] Time Calculation: Time Calculation- OT Row Name 04/05/253 Time Calculation- OT OT Start Time 1044 -CS OT Received On 04/05/25 - OT Goal Re-Cert Due Date 04/12/25 -CS Timed Charges 39076 - OT Therapeutic Exercise Minutes 10 -CS 24269 - OT Therapeutic Activity Minutes 18 -CS 84095 - OT Self Care/Mgmt Minutes 12 -CS Total Minutes Timed Charges Total Minutes 40 -CS Total Minutes 40 -CS User Lockwood (r) = Recorded By, (t) = Taken By, (c) = Cosigned By Initials Name Provider Type To Steiner OT Occupational Therapist Therapy Charges for Today Code Description Service Date Service Provider Modifiers Qty 89594398018 HC OT THERAPEUTIC ACT EA 15 MIN 04/05/2025 To Steiner OT GO 1 34520266063 HC OT SELF CARE/MGMT/TRAIN EA 15 MIN 04/05/2025 To Steiner, OT GO 1 88795944946 HC OT THER PROC EA 15 MIN 04/05/2025 To Steiner, OT GO 1 63195583657 HC OT THER SUPP EA 15 MIN 04/05/2025 To Steiner, OT GO 1 95867700939 HC OT THER SUPP EA 15 MIN 04/05/2025 To Steiner Yayo, OT GO 1 To Yayo Steiner OT 04/05/2025 1136 Speech Language Pathology Notes (most recent note) Virginie Jacinto MS CCC-HVAC R TECH at 04/03/25 1422 Acute Care - Speech Language Pathology Speech & Swallow Treatment Note [facility] Patient Name: Regine Anguiano : 1955 Today's [...] Past Surgical History: Procedure Laterality Date HYSTERECTOMY HVAC R TECH Recommendation and Plan Recommended discharge disposition is based on the functional assessment performed by PT/OT/Speech therapy (as applicable) and may not reflect the medical necessity determined by your provider or services covered by an individual patient's insurance plan or patient resource. HVAC R TECH Diet Recommendation: nectar thick liquids, ice chips between meals after oral care, with supervision, puree (04/03/251421) Recommended Precautions and Strategies: upright posture during/after eating, general aspiration precautions, assist with feeding, no straw, check mouth frequently for oral residue/pocketing () HVAC R TECH Rec. for Method of Medication Administration: meds whole, with puree, as tolerated (04/03/251421) Monitor for Signs of Aspiration: yes, notify HVAC R TECH if any concerns (04/03/251421) Anticipated Discharge Disposition (HVAC R TECH): [facility] facility (04/03/251421) Therapy Frequency (Swallow): 5 days per week (04/03/251421) Predicted Duration Therapy Intervention (Days): 2 weeks (04/03/251421) Oral Care Recommendations: Oral Care BID/PRN, Suction toothbrush (04/03/251421) Daily Summary of Progress (HVAC R TECH): progress towards functional goals is fair (04/03/251421) Treatment Assessment (HVAC R TECH): clinical signs of, aspiration, dysarthria, cognitive-linguistic disorder (04/03/251421) Plan for Continued Treatment (HVAC R TECH): continue treatment per plan of care (04/03/251421) Progress: improving SWALLOW EVALUATION (Last 72 Hours) HVAC R TECH Adult Swallow Evaluation Row Name 04/03/25142104/03/25 0920 [...] Of Current Problem -- -- See initial HVAC R TECH eval -SM (r) LS (t) SM (c) -- Pt is a 70yoF w PMHx ETOH abuse who presented to OSH after being found down unresponsive. Pt with witnessed seizure activity and intubated. She was transferred to [facility] for higher level of care. SDH [...] -- -- unknown;other (see comments) no previous HVAC R TECH hx, pt u/a to indicate -RS Plans/Goals [...] -RS Eating/Swallowing Skills -- -- fed by HVAC R TECH;needed assist -SM (r) LS (t) SM (c) fed by HVAC R TECH -SM (r) LS(t) SM (c) fed by HVAC R TECH;unable to perform self-feeding -RS Positioning During Eating [...] vocal quality, however pt much more alert. HVAC R TECH will assess via FEES. -SM (r) LS (t) SM (c) Voice is essentially aphonic and coupled with mental status, intelligibility is low. Pt may have essential meds in puree, HVAC R TECH will re-assess and determineneed for instrumental prior [...] SM (c)-- Signs of aspiration;Silent aspiration -RS HVAC R TECH Evaluation Clinical Impression HVAC R TECH Swallowing Diagnosis -- -- oral dysphagia;mild-moderate;pharyngeal dysphagia [...] (t) SM (c) demonstrates skilled criteria -RS HVAC R TECH Treatment Clinical Impressions Treatment Assessment (HVAC R TECH) clinical signs of;aspiration;dysarthria;cognitive- linguistic disorder -MM continued;toleration of diet;oral dysphagia;mild- moderate;pharyngeal dysphagia -MM (r) EM (t) MM (c) -- -- -- Daily Summary of Progress (HVAC R TECH) progress towards functional goals is fair -MM progress toward functional goals as expected -MM (r) EM (t) MM (c) -- -- -- Barriers to Overall Progress (HVAC R TECH) Cognitive status -MM Cognitive status -MM (r) EM (t) MM (c) -- -- -- Plan for Continued Treatment (HVAC R TECH) continue treatment per plan of care -MM [...] (r) LS (t) SM (c) -- -- HVAC R TECH Diet Recommendation nectar thick liquids;ice chips between [...] SM (c) Oral Care BID/PRN;Suction toothbrush -RS HVAC R TECH Rec. for Method of Medication Administration meds whole;with puree;as tolerated -MM meds whole;with puree;as tolerated -MM (r) EM (t) MM (c) meds whole;with puree;as tolerated -SM (r) LS (t) SM (c) meds whole;with puree;as tolerated -SM (r) LS (t) SM (c) meds whole;with puree essential meds only -RS Monitor for Signs of Aspiration yes;notify HVAC R TECH if any concerns -MM yes;notify HVAC R TECH if any concerns -MM (r) EM (t) MM (c) yes;notify HVAC R TECH if any concerns -SM (r) LS (t) SM (c) yes;notify HVAC R TECH if any concerns -SM (r) LS (t) SM (c) yes;notify HVAC R TECH if any concerns -RS Anticipated Discharge Disposition (HVAC R TECH) [facility] facility -MM [facility] facility -MM (r) EM (t) MM (c) [facility] facility -SM (r) LS (t) SM (c) [facility] facility -SM (r) LS (t) SM (c) [facility] facility -RS Demonstrates Need for Referral to Another Service -- -- speech therapy -SM (r) LS (t) SM (c) speechtherapy -SM (r) LS (t) SM (c) speech therapy;other (see comments) Pt would benefit from full SLC eval -RS User Lockwood (r) = Recorded By, (t) = Taken By, (c) = Cosigned By Initials Name Effective Dates Denice Regan, MS CCC-HVAC R TECH 07/02/24 - RS Av Varghese, MS CCC-HVAC R TECH 02/24/23 - MM Virginie Jacinto, MS CCC-HVAC R TECH 02/10/24 - Susannah Henderson, Speech Therapy Student 01/25/25 - LS Yumi Singh, Speech Therapy Student 01/29/25 - EDUCATION The patient has been educated in the following areas: Cognitive Impairment Dysphagia (Swallowing Impairment). HVAC R TECH GOALS Row Name 04/03/25 1422 04/03/25 0920 04/02/25 1400 (LTG) Patient will demonstrate functional swallow for Diet Texture (Demonstrate functional swallow) regular textures -MM regular textures -MM (r) EM (t) MM (c) -- -SM (r) LS (t) SM (c) Liquid viscosity (Demonstrate functional swallow) thin liquids -MM thin liquids -MM (r) EM (t) MM (c) -- -SM (r) LS (t) SM (c) Bee (Demonstrate functional swallow) with minimal cues (75-90% [...] -- -SM (r) LS (t) SM (c) Bee (Tolerate trials) with moderate cues (50-74% accuracy) [...] (c) -- (STG) Lingual Strengthening Goal 1 (HVAC R TECH) Activity (Lingual Strengthening Goal 1, HVAC R TECH) increase lingual tone/sensation/control/coordination/movement;increase tongue back strength -MM [...] -- -SM (r) LS (t) SM (c) Bee/Accuracy (Lingual Strengthening Goal 1, HVAC R TECH) with moderate cues (50-74% accuracy) -MM with moderate cues (50-74% accuracy) -MM (r) EM (t) MM (c) -- -SM (r) LS (t) SM (c) Time Frame (Lingual Strengthening Goal 1, HVAC R TECH) 1 week -MM 1 week -MM (r) EM (t) MM (c) -- -SM (r) LS (t) SM (c) Progress/Outcomes (Lingual Strengthening Goal 1, HVAC R TECH) goal ongoing -MM goal ongoing -MM (r) EM (t) MM (c) -- -SM (r) LS (t) SM (c) Comment (Lingual Strengthening Goal 1, HVAC R TECH) -- Pt unable to follow directions. - MM (r) EM (t) MM (c) -- (STG) Pharyngeal Strengthening Exercise Goal 1 (HVAC R TECH) Activity (Pharyngeal Strengthening Goal 1, HVAC R TECH) increase superior movement of the hyolaryngeal complex;increase [...] -- -SM (r) LS (t) SM (c) Bee/Accuracy (Pharyngeal Strengthening Goal 1, HVAC R TECH) with moderate cues (50-74% accuracy) -MM with moderate cues (50-74% accuracy) -MM (r) EM (t) MM (c) -- -SM (r) LS (t) SM (c) Time Frame (Pharyngeal Strengthening Goal 1, HVAC R TECH) 1 week -MM 1 week -MM (r) EM (t) MM (c) -- -SM (r) LS (t) SM (c) Progress/Outcomes (Pharyngeal Strengthening Goal 1, HVAC R TECH) goal ongoing -MM goal ongoing -MM (r) EM (t) MM (c) -- -SM (r) LS (t) SM (c) Comment (Pharyngeal Strengthening Goal 1, HVAC R TECH) -- Pt unable to follow directions. -MM (r) EM (t) MM(c) -- Patient will demonstrate functional communication skills for return to discharge environment Bee Independently -MM Independently -MM (r) EM (t) MM (c) -- -SM (r) LS (t) SM (c) Time frame 2 weeks -MM 2 weeks -MM (r) EM (t) MM (c) -- -SM (r) LS (t) SM (c) Progress/Outcomes goal ongoing -MM goal ongoing -MM (r) EM (t) MM (c) -- -SM (r) LS (t) SM (c) HVAC R TECH Diagnostic Treatment Patient will participate in further [...] (t) SM (c) Progress/Outcomes (Additional Goal 1, HVAC R TECH) good progress toward goal -MM progress slower [...] memory; moderate deficits w/ problem solving. -MM HVAC R TECH attempted to call pt's spouse to discuss baseline function, however, he did not answer the phone call. TYRONE reported contact w/ spouse has been attemptedmultiple times with no response throughout length of hospitalization. Higher level cognitive linguistic evaluation not indicated at this time due to unknown baseline and difficulty following commands. -MM (r) EM (t) MM (c) -- Memory Skills Goal 1 (HVAC R TECH) Improve Memory Skills Through Goal 1 (HVAC R TECH) listen to a paragraph and answer questions;80%;with minimal cues (75-90%) -MM -- -- Time Frame (Memory Skills Goal 1, HVAC R TECH) 1 week -MM -- -- Progress/Outcomes (Memory Skills Goal 1, HVAC R TECH) new goal -MM -- -- Functional Problem Solving Skills Goal 1 (HVAC R TECH) Improve Problem Solving Through Goal 1 (HVAC R TECH) answer questions about ADL problems;determine solutions to simple ADL/safety problems;determine solutions to complex problems;80%;with minimal cues (75-90%) -MM -- -- Time Frame (Problem Solving Goal 1, HVAC R TECH) 1 week -MM -- -- Progress/Outcomes (Problem Solving Goal 1, HVAC R TECH) new goal -MM -- -- Row Name 04/02/25 1330 04/02/25 1100 (LTG) Patient will demonstrate functional swallow for Diet Texture (Demonstrate functional swallow) regular textures -SM (r) LS (t) SM (c) -- Liquid viscosity (Demonstrate functional swallow) thin liquids -SM (r) LS (t) SM (c) -- Bee (Demonstrate functional swallow) with minimal cues (75-90% [...] -SM (r) LS (t) SM (c) -- Bee (Tolerate trials) with moderate cues (50-74% accuracy) -SM (r) LS (t) SM (c) -- Time Frame (Tolerate trials) 1 week -SM (r) LS (t) SM (c) -- Progress/Outcomes (Tolerate trials) new goal -SM (r) LS (t) SM (c) -- (STG) Lingual Strengthening Goal 1 (HVAC R TECH) Activity (Lingual Strengthening Goal 1, HVAC R TECH) increase lingual tone/sensation/control/coordination/movement;increase tongue back strength -SM (r) LS (t) SM (c) -- Increase Lingual Tone/Sensation/Control/Coordination/Movement lingual resistance exercises -SM (r) LS (t) SM (c) -- Increase Tongue Back Strength lingual resistance exercises -SM (r) LS (t) SM (c) -- Bee/Accuracy (Lingual Strengthening Goal 1, HVAC R TECH) with moderate cues (50-74% accuracy) -SM (r) LS (t) SM (c) -- Time Frame (Lingual Strengthening Goal 1, HVAC R TECH) 1 week -SM (r) LS (t) SM (c) -- Progress/Outcomes (Lingual Strengthening Goal 1, HVAC R TECH) new goal -SM (r) LS (t) SM (c) -- (STG) Pharyngeal Strengthening Exercise Goal 1 (HVAC R TECH) Activity (Pharyngeal Strengthening Goal 1, HVAC R TECH) increase superior movement of the hyolaryngeal complex;increase [...] -SM (r) LS (t) SM (c) -- Bee/Accuracy (Pharyngeal Strengthening Goal 1, HVAC R TECH) with moderate cues (50-74% accuracy) -SM (r) LS (t) SM (c) -- Time Frame (Pharyngeal Strengthening Goal 1, HVAC R TECH) 1 week -SM (r) LS (t) SM (c) -- Progress/Outcomes (Pharyngeal Strengthening Goal 1, HVAC R TECH) new goal -SM (r) LS (t) SM (c) -- Patient will demonstrate functional communication skills for return to discharge environment Bee Independently -SM (r) LS (t) SM (c) Independently -SM (r) LS (t) SM (c) Time frame 2 weeks -SM (r) LS (t) SM (c) 2 weeks -SM (r) LS (t) SM (c) Progress/Outcomes goal ongoing -SM (r) LS (t) SM (c) new goal -SM (r) LS (t) SM (c) HVAC R TECH Diagnostic Treatment Patient will participate in further assessment in the following areas motor speech;higher-level cognitive-linguistic;clarification of baseline cognitive communication status -SM (r) LS (t) SM (c) motor speech;higher-level cognitive- linguistic;clarification of baseline cognitive communication status-SM (r) LS (t) SM (c) Time Frame (Diagnostic) 1 week -SM (r) LS (t) SM (c) 1 week -SM (r) LS (t) SM (c) Progress/Outcomes (Additional Goal 1, HVAC R TECH) goal ongoing -SM (r) LS (t) SM (c) new goal -SM (r) LS (t) SM (c) User Lockwood (r) = Recorded By, (t) = Taken By, (c) = Cosigned By Initials Name Provider Type Denice Regan, MS [facility]-HVAC R TECH Speech and Language Pathologist Virginie Cruz, [facility]-HVAC R TECH Speech and Language Pathologist Susannah Henderson, Speech Therapy Student HVAC R TECH Student Yumi Oleary, Speech Therapy Student HVAC R TECH Student Time Calculation: Time Calculation- HVAC R TECH Row Name 04/03/25 1554 04/03/25 1211 Time Calculation- HVAC R TECH HVAC R TECH Start Time 1422 -MM 0920 -MM (r) EM (t) MM (c) HVAC R TECH Received On 04/03/25 -MM 04/03/25 -MM (r) EM (t) MM (c) Untimed Charges 50355-ZM Treatment/ST Modification Prosth Aug 24 -MM -- 29286-KL Treatment Swallow Minutes 11 -MM 68 -MM (r) EM (t) MM (c) Total Minutes Untimed Charges Total Minutes 35 -MM 68 -MM (r) EM (t) Total Minutes 35 -MM 68 -MM (r) EM (t) User Lockwood (r) = Recorded By, (t) = Taken By, (c) = Cosigned By Initials Name Provider Type MM Virginie Jacinto, CCC-HVAC R TECH Speech and Language Pathologist Susannah Henderson, Speech Therapy Student HVAC R TECH Student Therapy Charges for Today Code Description Service Date Service Provider Modifiers Qty 15235323094 HC ST TREATMENT SWALLOW 1 04/03/2025 Virginie Jacinto MS CCC-HVAC R TECH GN [id number] TREATMENT SPEECH 2 04/03/2025 Virginie Jacinto MS CCC-HVAC R TECH GN 1 Virginie Jacinto MS CCC-KAREN 04/03/2025 1557 * Lesly Starkey RN - 04/03/2025 2:50 PM EDT Images from the original note were not included. Case Management [phone] Regine Anguiano (70 y.o. 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 Physical Therapy Notes (most recent note) Wendi oBswell, PT at 04/02/25 1050 Version 1 of [...] Bed Mobility Bed Mobility supine-sit -KE Supine-Sit Bee (Bed Mobility) moderate assist (50% patient effort);2 person assist;verbal cues -KE Assistive Device (Bed Mobility) bed rails;head of bed elevated;repositioning sheet -KE Comment, (Bed Mobility) VC/TCs for sequencing -KE Row Name 04/02/25 1319 Bed-Chair Transfer Bed-Chair Bee (Transfers) maximum assist (25% patient effort);2 person assist;verbal cues -KE Assistive Device (Bed-Chair Transfers) other (see comments) B UE support -KE Comment, (Bed-Chair Transfer) attempted initial t/f w/ FWW, pt unable to sequence req return to sitand use of B UE support for stand pivot to chair -KE Row Name 04/02/25 1319 Sit-Stand Transfer Sit-Stand Bee (Transfers) moderate assist (50% patient effort);2 person [...] (MMT) Assessment lower extremity strength deficits identified -MATTY Comment, General Manual Muscle Testing (MMT) Assessment [...] PT Physical Therapist Goals/Plan Row Name 04/02/25 1324 Bed Mobility Goal 1 (PT) Activity/Assistive Device (Bed Mobility Goal 1, PT) sit to supine/supine to sit -KE Bee Level/Cues Needed (Bed Mobility Goal 1, PT) minimum assist (75% or more patient effort) -KE Time Frame (Bed Mobility Goal 1, PT) short term goal (STG);5 days -KE Progress/Outcomes (Bed Mobility Goal 1, PT) new goal -KE Row Name 04/02/25 1324 Transfer Goal 1 (PT) Activity/Assistive Device (Transfer Goal 1, PT) bnf-mz-tikjh/tfrpr-nt-ylc;gfp-hp-daepk/qglmh-mv-fci-KE Bee Level/Cues Needed (Transfer Goal 1, PT) minimum assist (75% or more patient effort) -KE Time Frame (Transfer Goal 1, PT) usp goal (LTG);10 days -KE Progress/Outcome (Transfer Goal 1, PT) new goal -KE Row Name 04/02/25 1324 Gait Training Goal 1 (PT) Activity/Assistive Device (Gait Training Goal 1, PT) gait (walking locomotion);assistive device use;improve balance and speed;walker, rolling -KE Bee Level (Gait Training Goal 1, PT) minimum assist (75% or more patient effort) -KE Distance (Gait Training Goal 1, PT) 50 -KE Time Frame (Gait Training Goal 1, PT) usp goal (LTG);10 days -KE Progress/Outcome (Gait Training [...] Therapist Physical Therapy Education Title: PT OT HVAC R TECH Therapies (In Progress) Topic: Physical Therapy (In [...] Lockwood Initials Effective Dates Name Provider Type [facility]ATT[facility] 04/28/23 - Wendi Boswell PT Physical [...] Description Service Date Service Provider Modifiers Qty [id number] PT EVAL MOD COMPLEXITY 4 04/02/2025 Wendi Boswell PT GP 1 PT G-Codes Outcome Measure Options: AM-PAC 6 Clicks Basic Mobility (PT) AM-PAC 6 Clicks Score (PT): 12 PT Discharge Summary Anticipated Discharge Disposition (PT): [facility] facility Wendi Boswell PT 04/02/2025 1326 Occupational [...] Bed Mobility Bed Mobility supine-sit - Supine-Sit Bee (Bed Mobility) moderate assist (50% patient effort);2 person assist;verbal cues - Assistive Device (Bed Mobility) bed rails;head of bed elevated;repositioning sheet - Row Name 04/02/25 131 Transfers Transfers sit-stand transfer;stand-sit transfer;bed-chair transfer - Row Name 04/02/25 131 Bed-Chair Transfer Bed-Chair Bee (Transfers) maximum assist (25% patient effort);2 person assist;verbal cues - Assistive Device (Bed-Chair Transfers) other (see comments) BUE support - Comment, (Bed-Chair Transfer) stand pivot transfer, VCs for sequencing. Required assist at hips - Row Name 04/02/251310 Sit-Stand Transfer Sit-Stand Bee (Transfers) moderate assist (50% patient effort);2 person assist;verbal cues- Assistive Device (Sit-Stand Transfers) other (see comments) BUE support - Comment, (Sit-Stand Transfer) Posterior lean in standing - Row Name 04/02/251310 Stand-Sit Transfer Stand-Sit Bee (Transfers) moderate assist (50% patient effort);2 person [...] Name 04/02/25 131 Lower Body Dressing Assessment/Training Bee Level (Lower Body Dressing) don;socks - Position [...] sequencing and following directions - Row Name 04/02/25 1317 Vision Assessment/Intervention Visual Impairment/Limitations other (see comments);visual/perceptual [...] OT Occupational Therapist Goals/Plan Row Name 04/02/25 1323 Bed Mobility Goal 1 (OT) Activity/Assistive Device (Bed Mobility Goal 1, OT) sit to supine/supine to sit - Bee Level/Cues Needed (Bed Mobility Goal 1, OT) contact guard required - Time Frame (Bed Mobility Goal 1, OT) long term care pharmacist goal (LTG);10 days - Progress/Outcomes (Bed Mobility Goal 1, OT) new goal - Row Name 04/02/25 1323 Transfer Goal 1 (OT) Activity/Assistive Device (Transfer Goal 1, OT) kfa-qd-ffltt/mxxvv-uv-opv;rbu-nx-vmimb/wvwcc-xu-pmx- Bee Level/Cues Needed (Transfer Goal 1, OT) minimum assist (75% or more patient effort) - Time Frame (Transfer Goal 1, OT) short term goal (STG);5 days -CH Progress/Outcome (Transfer Goal 1, OT) new goal - Row Name 04/02/25 1329 Grooming Goal 1 (OT) Activity/Device (Grooming Goal 1, OT) hair care;oral care;wash face, hands - Bee (Grooming Goal 1, OT) minimum assist (75% or more patient effort) -CH Time Frame (Grooming Goal 1, OT) usp goal (LTG);10 days -CH Progress/Outcome (Grooming Goal 1, OT) new goal - Row Name 04/02/25 1326 Therapy Assessment/Plan (OT) Planned Therapy Interventions (OT) [...] 2-->hurts little bit - Row Name 04/02/25 132 Plan of Care Review Outcome Evaluation OT eval complete. Pt presents with deficits including generalized weakness, decreased functional mobility, decreased activity tolerance, and decreased balance warranting IPOT services. Stand pivot transfer with max A x2, completed sit to stand with mod A x2. Rec d/c to SNF. - Row Name 04/02/25 1321 Therapy Assessment/Plan (OT) Patient/Family Therapy Goal Statement (OT) Return home - Rehab Potential (OT) fair - Criteria for Skilled Therapeutic Interventions Met (OT) skilled treatment is necessary;yes - Therapy Frequency (OT) daily - Predicted Duration of Therapy Intervention (OT) 10 days - Row Name 04/02/25 1328 Therapy Plan Review/Discharge Plan (OT) Anticipated Discharge Disposition (OT) [facility] facility - Row Name 04/02/25 1323 Vital [...] By Initials Name Provider Type Shelly Vital, OT Occupational Therapist Outcome Measures Row Name 04/02/25 [...] (OT) -CH AM-PAC 6 Clicks Basic Mobility (PT)-KE User Lockwood (r) = Recorded By, (t) = Taken By, (c) = Cosigned By Initials Name Provider Type Wendi Flowers, PT Physical Therapist CH Hairrell, Shelly, OT Occupational Therapist Occupational Therapy Education Title: PT OT HVAC R TECH Therapies (In Progress) Topic: Occupational Therapy (In Progress) Point: ADL training (In Progress) Learning Progress Summary Patient Acceptance, E,TB, NR by at 04/02/2025 1050 Point: Precautions (In Progress) Learning Progress Summary Patient Acceptance, E,TB, NR by at 04/02/2025 1050 Point: Body mechanics (In Progress) Learning Progress Summary Patient Acceptance, E,TB, NR by at 04/02/2025 1050 User Lockwood Initials Effective Dates Name Provider Type [facility] 03/18/25 - Shelly Jones OT Occupational Therapist [...] Description Service Date Service Provider Modifiers Qty [id number] OT EVAL MOD COMPLEXITY 4 04/02/2025 Shelly Jones OT GO 1 Shelly Jones OT 04/02/2025 3766 Speech Language Pathology Notes (most recent note) Av Varghese MS CCC-HVAC R TECH at 04/01/25 1613 Acute Care - Speech Language Pathology Swallow Initial Evaluation [facility] Clinical Swallow Evaluation Patient Name: Regine [...] file. No past surgical history on file. HVAC R TECH Recommendation and Plan Recommended discharge disposition is based on the functional assessment performed by PT/OT/Speech therapy (as applicable) and may not reflect the medical necessity determined by your provider or services covered by an individual patient's insurance plan or patient resource. HVAC R TECH Swallowing Diagnosis: oral dysphagia, R/O pharyngeal dysphagia (04/01/251544) HVAC R TECH Diet Recommendation: NPO (04/01/251544) Recommended Precautions and Strategies: upright posture during/after eating, general aspiration precautions (04/01/251544) HVAC R TECH Rec. for Method of Medication Administration: meds whole, with puree (essential meds only) (04/01/251544) Monitor for Signs of Aspiration: yes, notify HVAC R TECH if any concerns (04/01/251544) Recommended Diagnostics: reassess via clinical swallow evaluation (04/01/251544) Swallow Criteria for Skilled Therapeutic Interventions Met: demonstrates skilled criteria (545) Anticipated Discharge Disposition (HVAC R TECH): [facility] facility (04/01/251544) Rehab Potential/Prognosis, Swallowing: adequate, monitor progress closely (04/01/251544) Oral Care Recommendations: Oral Care BID/PRN, Suction toothbrush (04/01/25 115) Demonstrates Need for Referral to Another Service: speech therapy, other (see comments) (Pt would benefit from full SLC eval) (04/01/25 661) Progress: no change SWALLOW EVALUATION (Last 72 Hours) HVAC R TECH Adult Swallow Evaluation Row Name 04/01/251544 Rehab [...] activity and intubated. She was transferred to [facility] for higher level of care. SDH [...] of Function-Swallowing unknown;other (see comments) no previous HVAC R TECH hx, pt u/a to indicate -RS Plans/Goals [...] nasal cannula -RS Eating/Swallowing Skills fed by HVAC R TECH;unable to perform self-feeding -RS Positioning During Eating [...] low. Pt may have essential meds in [facility], HVAC R TECH will re-assess and determine need for instrumental prior to PO diet -RS Swallowing Quality of Life Assessment Education and counseling provided Signs of aspiration;Silent aspiration -RS HVAC R TECH Evaluation Clinical Impression HVAC R TECH Swallowing Diagnosis oral dysphagia;R/O pharyngeal dysphagia -RS Functional Impact risk of aspiration/pneumonia -RS Rehab Potential/Prognosis, Swallowing adequate, monitor progress closely -RS Swallow Criteria for Skilled Therapeutic Interventions Met demonstrates skilled criteria -RS Recommendations HVAC R TECH Diet Recommendation NPO -RS Recommended Diagnostics reassess via clinical swallow evaluation -RS Recommended Precautions and Strategies upright posture during/after eating;general aspiration precautions -RS Oral Care Recommendations Oral Care BID/PRN;Suction toothbrush -RS HVAC R TECH Rec. for Method of Medication Administration meds whole;with [facility] essential meds only -RS Monitor for Signs of Aspiration yes;notify HVAC R TECH if any concerns -RS Anticipated Discharge Disposition (HVAC R TECH) [facility] facility -RS Demonstrates Need for Referral to Another Service speech therapy;other (see comments) Pt would benefit from full SLC eval -RS User Lockwood (r) = Recorded By, (t) = Taken By, (c) = Cosigned By Initials Name Effective Dates RS Av Varghese MS [facility]-HVAC R TECH 02/24/23 - EDUCATION The patient has been educated in the following areas: Dysphagia (Swallowing Impairment) Oral Care/Hydration NPO rationale. Time Calculation: Time Calculation- HVAC R TECH Row Name 04/01/25 1611 Time Calculation- HVAC R TECH HVAC R TECH Start Time 1545 -RS HVAC R TECH Received On 04/01/25 -RS Untimed Charges 02096-RV Eval Oral Pharyng Swallow Minutes 40 -RS Total Minutes Untimed Charges Total Minutes 40 -RS Total Minutes 40 -RS User Lockwood (r) = Recorded By, (t) = Taken By, (c) = Cosigned By Initials Name Provider Type RS Av Varghese MS CCC-HVAC R TECH Speech and Language Pathologist Therapy Charges for Today Code Description Service Date Service Provider Modifiers Qty [id number] HC ST EVAL ORAL PHARYNG SWALLOW 3 [...] from the original note were not included. [facility] Medicine Services PROGRESS NOTE Patient Name: [...] 96.6 96.5 Lab 04/06/25 1913 04/06/25 0907 04/03/25 0349 04/02/25 0810 SODIUM -- 139 138 140 POTASSIUM [...] 100 mg/dL (2+) Microbiology Results Abnormal None HVAC R TECH FEES - Fiberoptic Endo Eval Swallow Result [...] ED and was intubated and transferred to [facility] ICU. Seizures, likely from ETOH withdrawal [...] from the original note were not included. [facility] Medicine Services PROGRESS NOTE Patient Name: [...] 04/06/25 0907 04/03/25 0349 04/02/25 0810 04/01/25 0102 03/31/25 1204 SODIUM -- 139 138 140 137 [...] MD 04/06/2025 12:46 PM EDT Workstation ID: [id number] I have personally reviewed the therapy plans: [...] ED and was intubated and transferred to [facility] ICU. Seizures, likely from ETOH withdrawal [...] from the original note were not included. [facility] Medicine Services PROGRESS NOTE Patient Name: [...] LACTATE -- -- -- -- 2.0 Lab 04/03/25 0349 [...] ED and was intubated and transferred to [facility] ICU. Seizures, likely from ETOH withdrawal [...] Encounter: MST 2-3 or Nursing Admission Screen [facility] Clinical Nutrition Assessment Subjective Subjective Information 04/05 Good appetite per documentation. Patient confirms this. No nutrition concerns at this time. Tolerating diet. 04/02 Patient triggered for nutrition assessment for <chewing and swallowing issues, unsure weight loss> . Patient was found unresponsive at home with witnessed seizure in route to outside hospital. Intubated (03/31) due to altered mental status; extubated 04/01. HVAC R TECH bedside eval yesterday with recommendation for NPO [...] Applicable Nutrition Hx (03/31) Intubated (04/01) Extubated (04/01)HVAC R TECH bedside eval: NPO (04/02) FEES mechanical ground [...] 42* 41* ALT (SGPT) U/L -- -- 21 23 PROBNP pg/mL -- -- -- 878.0 Results [...] sodium chloride sodium chloride Physical Findings Chewing/Swallowing HVAC R TECH following Dentition Mouth/Teeth WDL: .WDL except, teeth [...] Straw; Texture: Pureed (NDD 1); Fluid Consistency: [employer] Thick Oral Nutrition Supplement None Trending % PO Intake 04/02/25 NPO; isuf data 04/05/25: 100% x 3 meals 2 Assessment & Plan Nutrition Diagnosis and Goals Nutrition Diagnosis 1 No nutrition diagnosis at this time Nutrition Diagnosis 2 None Goal(s) Establish PO Intake Nutrition Intervention and Prescription Intervention Continue to monitor for plan of care Diet Plan Pureed, [employer] thick liquids per HVAC R TECH recommendation Supplement Plan Eating well, not warranted at this time Education Provided 3 Monitoring/Evaluation Monitor/Evaluation Per Protocol, I&O, PO Intake, Pertinent Labs, Symptoms, and Swallow Function RD Follow-Up Encounter 7 days and prn Electronically signed by: Radha Branch RD 04/05/25 16:21 EDT * Susan Alvarado MD - 04/05/2025 4:11 PM EDT Images from the original note were not included. [facility] Medicine Services PROGRESS NOTE Patient Name: [...] ED and was intubated and transferred to [facility] ICU. Seizures, likely from ETOH withdrawal [...] Resulting Agency [facility] Radiological Studies: HVAC R TECH FEES - Fiberoptic Endo Eval Swallow Result [...] MD 04/01/2025 11:48 AM EDT Workstation ID: [id number] CT Outside Head Result Date: 04/01/2025 This [...] MD 04/01/2025 7:52 AM EDT Workstation ID: [id number] MRI Brain Without Contrast Result Date: 04/01/2025 [...] than right. Findings were communicated to the medical staff services coordinator, Horace at 6:03 a.m. at the [...] are present This report is transcribed using [employer] dictation system. XR Abdomen KUB Result Date: [...] MD 03/31/2025 1:13 PM EDT Workstation ID: [id number] XR Chest 1 View Result Date: 03/31/2025 XR CHEST 1 VW Date of Exam: 03/31/2025 10:47 AM EDT Indication: patient intubated, possible aspiration. Comparison: None available. Findings: Endotracheal tube tip 3.7 cm above the level of the demarcus. Feeding tube tip extending below the diaphragm and beyond the [id number]-wb-hkaz. No consolidation. No pneumothorax or pleural effusion. The clavicles are intact. No rib fractures. The visualized upper abdomen appears normal. Calcification of the aortic arch. Faint platelike atelectasis along the right minor fissure. Appropriate tube placement. Otherwise no acute cardiopulmonary disease. Electronically Signed: Allen Badillo MD 03/31/2025 11:02 AM EDT Workstation ID: [id number] During this visit the following were done: [...] Encounter: MST 2-3 or Nursing Admission Screen [facility] Clinical Nutrition Assessment Subjective Subjective Information 04/02 Patient triggered for nutrition assessment for <chewing and swallowing issues, unsure weight loss> . Patient was found unresponsive at home with witnessed seizure in route to outside hospital. Intubated (03/31) due to altered mental status; extubated 04/01. HVAC R TECH bedside eval yesterday with recommendation for NPO [...] Applicable Nutrition Hx (03/31) Intubated (04/01) Extubated (04/01)HVAC R TECH bedside eval: NPO (04/02) FEES mechanical ground [...] sodium chloride sodium chloride Physical Findings Chewing/Swallowing HVAC R TECH eval pending and HVAC R TECH following Dentition Mouth/Teeth WDL: .WDL except, teeth Teeth Symptoms: tooth/teeth missing Skin Bowel function Edema Intake & Output (last 3 days) 03/30 0703/31 0703/31 0704/01 0704/02 0704/02 07 I.V. (mL/kg) 2705 [...] plan of care Diet Plan Diet per HVAC R TECH recommendations: Ground, [employer] thick liquids Monitor PO trend Supplement Plan Education Provided 3 Monitoring/Evaluation Monitor/Evaluation Per Protocol, I&O, PO Intake, Pertinent Labs, Symptoms, and Swallow Function RD Follow-Up Encounter 3-5 days and prn Electronically signed by: Radha Branch RD 04/02/25 09:46 EDT * Dmitry Nicolas MD - 04/02/2025 8:43 AM EDT [...] dexmedetomidine, 0.2-1.5 mcg/kg/hr, Last Rate: Stopped (04/02/25 7749) norepinephrine, 0.02-0.3 mcg/kg/min, Last Rate: Stopped (04/02/25 0530) PHYSICAL EXAMINATION: Temp: [97.9 ??F (36.6 ??C)-99 [...] H2O): [5 cm H20] 5 cm H20 IL SUP: [10 cm H20] 10 cm H20 [...] days Lab Units 04/02/25 0810 04/01/25 0102 SODIUM mmol/L 140 137 POTASSIUM mmol/L 3.9 [...] is identified. 3.Age-related changes are noted. Electron icakati Signed: Valdez Ascencio MD 04/01/2025 11:48 AM EDT Workstation ID: [id number] XR Chest 1 View Result Date: 04/01/2025 Impression: 1.Increased left basilar atelectasis. 2.Mild discoid atelectasis in the right midlung. Electronically Signed: Adrián Puri MD 04/01/2025 7:52 AM EDT Workstation ID: [id number] MRI Brain Without Contrast Result Date: 04/01/2025 Impression: 1.No acute ischemic change. 2.Small subdural hematoma along the left occipital convexity. 3.Diffuse atrophy and white matter changes compatible sequela of small vessel ischemic disease inthis age group. 4.Bilateral mastoid effusions left greater than right. Findings were communicated to the medical staff services coordinator, Horace at 6:03 a.m. at the time of interpretation Electronically Signed: Pérez Ardon MD 04/01/2025 6:05 AM EDT Workstation ID: [id number] EEG Result Date: 03/31/2025 Diffuse cerebral dysfunction of mild-moderate degree, nonspecific but most commonly seen due to toxic/metabolic or hypoxemic cause No ongoing seizures are present This report is transcribed using [employer] dictation system. XR Abdomen KUB Result Date: 03/31/2025 Impression: 1.Nasogastric tube tip is within the stomach. 2.Atelectatic changes suggested in the visualized lower lungs. Electronically Signed: Marques Roberto MD 03/31/2025 1:13 PM EDT Workstation ID: [id number] XR Chest 1 View Result Date: 03/31/2025 Appropriate tube placement. Otherwise no acute cardiopulmonary disease. Electronically Signed: Allen Badillo MD 03/31/2025 11:02 AM EDT Workstation ID: [id number] Echo: ASSESSMENT & PLAN Seizure Aspiration pneumonitis [...] MD 04/01/2025 11:48 AM EDT Workstation ID: [id number] CT Outside Head Result Date: 04/01/2025 This [...] MD 04/01/2025 7:52 AM EDT Workstation ID: [id number] MRI Brain Without Contrast Result Date: 04/01/2025 [...] than right. Findings were communicated to the medical staff services coordinator, Horace at 6:03 a.m. at the [...] are present This report is transcribed using [employer] dictation system. XR Abdomen KUB Result Date: [...] MD 03/31/2025 1:13 PM EDT Workstation ID: [id number] XR Chest 1 View Result Date: 03/31/2025 XR CHEST 1 VW Date of Exam: 03/31/2025 10:47 AM EDT Indication: patient intubated, possible aspiration. Comparison: None available. Findings: Endotracheal tube tip 3.7 cm above the level of the demarcus. Feeding tube tip extending below the diaphragm and beyond the fqqba-tl-btox. No consolidation. No pneumothorax or pleural effusion. The clavicles are intact. No rib fractures. The visualized upper abdomen appears normal. Calcification of the aortic arch. Faint platelike atelectasis along the right minor fissure. Appropriate tube placement. Otherwise no acute cardiopulmonary disease. Electronically Signed: Allen Badillo MD 03/31/2025 11:02 AM EDT Workstation ID: [id number] During this visit the following were done: [...] F/U. - ST, PT, OT. * Lowell oD, DO - 04/01/2025 8:49 AM EDT [facility] Neurology Progress Note Patient Name: Regine Anguiano [...] >20.00 03/31/2025 Lab Results Component Value Date [id number] 345 03/31/2025 CK 215 Blood cultures pending [...] history of alcohol abuse who presented to [facility] ICU as a transfer from OSH after being found down. EMS witnessed seizure- like event, followed by a second event in the CT scanner. She was given Versed 5 mg, Versed 2 mg and Keppra 2 g. UDS negative, EtOH negative. She was transferred to [facility] ICU for further care. On exam [...] the above with the patient, bedside RN, computer video game designer Time spent with patient: 35 minutes in mcwt-dh-hswy evaluation and management of the patient. Lowell [...] ringers, 125 mL/hr, Last Rate: 125 mL/hr (04/01/25 08) norepinephrine, 0.02-0.3 mcg/kg/min, Last Rate: 0.1 mcg/kg/min (04/01/25 0812) propofol, 5-50 mcg/kg/min, Last Rate: 30 mcg/kg/min [...] MD 04/01/2025 7:52 AM EDT Workstation ID: [id number] MRI Brain Without Contrast Result Date: 04/01/2025 Impression: 1.No acute ischemic change. 2.Small subdural hematoma along the left occipital convexity. 3.Diffuse atrophy and white matter changes compatible sequela of small vessel ischemic disease inthis age group. 4.Bilateral mastoid effusions left greater than right. Findings were communicated to the medical staff services coordinator, Horace at 6:03 a.m. at the time of interpretation Electronically Signed: Pérez Ardon MD 04/01/2025 6:05 AM EDT Workstation ID: [id number] EEG Result Date: 03/31/2025 Diffuse cerebral dysfunction of mild-moderate degree, nonspecific but most commonly seen due to toxic/metabolic or hypoxemic cause No ongoing seizures are present This report is transcribed using [employer] dictation system. XR Abdomen KUB Result Date: 03/31/2025 Impression: 1.Nasogastric tube tip is within the stomach. 2.Atelectatic changes suggested in the visualized lower lungs. Electronically Signed: Marques Roberto MD 03/31/2025 1:13 PM EDT Workstation ID: [id number] XR Chest 1 View Result Date: 03/31/2025 Appropriate tube placement. Otherwise no acute cardiopulmonary disease. Electronically Signed: Allen Badillo MD 03/31/2025 11:02 AM EDT Workstation ID: [id number] Echo: ASSESSMENT & PLAN Seizure Aspiration pneumonitis [...] an apparent witnessed seizure en route to [facility] emergency department. She was initially given benzodiazepines and subsequently loaded with Keppra after arrival at [facility], receiving 2 g of Keppra. She had [...] vodka. [facility] mental status, hypoxemia, and seizures and is currently intubated on propofol and fentanyl drips. SOCIAL HISTORY Alcohol: The patient consumes alcohol. Tobacco: The patient smokes cigarettes. History taken from: PMH/FH/Social History were reviewed and updated appropriately in [...] MD 03/31/25 12:49 EDT Patient or patient telephone service representative verbalized consent for the use of [...] history of alcohol abuse who presented to [facility] ICU as a transfer from [facility] for higher level of care. Patient was found down for an unknown amount of time, reportedly next to a bottle of vodka. EMS wascalled who witnessed seizure-like activity. She was given Versed 5 mg en route. She was loaded with2 g Keppra at [facility]. CT head was unremarkable. CTA showed chronic [...] No medications prior to admission. * Lowell Do DO - 03/31/2025 12:28 PM EDTAssociated Order(s): IP CONSULT TO NEUROLOGY [facility] Neurology Consult Note Patient Name: Regine Anguiano : 1955 Primary Care Physician: Provider, No Known Referring Physician: Allen Sinclair MD Date of admission: 03/31/2025 Subjective Reason for Consult: Seizures Regine Anguiano is a 70 y.o. female with history of alcohol abuse who presented to [facility] ICU as a transfer from OSH [...] negative, alcohol negative. She was transferred to [facility] for higher level of care Per [...] found for: HGBA1C No results found for: [id number] No results found for: FOLATE Images/Procedures CT head, CTA from OSH report only 03/31/2025 CT head unremarkable, CTA with atherosclerosis in bilateral ICAs Assessment / Plan Active Hospital Problems: Found down History of alcohol abuse Witnessed seizure-like activity Brief Patient Summary: Regine Anguiano is a 70 y.o. female with history of alcohol abuse who presented to [facility] ICU as a transfer from OSH after being found down. EMS witnessed seizure- like event, followed by a second event in the CT scanner. She was given Versed 5 mg, Versed 2 mg and Keppra 2 g. UDS negative, EtOH negative. She was transferred to [facility] ICU for further care. She is [...] the above with the patient, bedside RN, computer video game designer Time spent with patient: 35 minutes in nvjp-fx-qspx evaluation and management of the patient. Lowell Do, [1] Current Facility-Administered Medications: sennosides-docusate (PERICOLACE) 8.6-50 [...] AM EDT Report called to Sammie at [facility] * Kami Moreno RN - 04/09/2025 6:35 [...] Taken 04/09/2025 0600 by Kami Moreno RN Infection Prevention: environmental [...] shift encouraged Head of Bed (HOB) Positioning: [facility] elevated Pressure Reduction Devices: pressure-redistributing mattress utilized Skin Protection: incontinence pads utilized Taken 04/09/2025 0000 by Kami Moreno RN Activity Management: activity encouraged Pressure Reduction Techniques: frequent weight shift encouraged Head of Bed (HOB) Positioning: [facility] elevated Pressure Reduction Devices: pressure-redistributing mattress utilized Skin Protection: incontinence pads utilized Taken 04/08/2025 2200 by Kami Moreno RN Activity Management: activity encouraged Pressure Reduction Techniques: frequent weight shift encouraged Head of Bed (HOB) Positioning: [facility] elevated Pressure Reduction Devices: pressure-redistributing mattress utilized Skin Protection: incontinence pads utilized Taken 04/08/20251999 by Kami Moreno RN Activity Management: activity encouraged Pressure Reduction Techniques: frequent weight shift encouraged Head of Bed (HOB) Positioning: [facility] elevated Pressure Reduction Devices: pressure-redistributing mattress utilized [...] medications reviewed Taken 04/09/2025 0000 by Kami Moerno RN Medication Review/Management: medications reviewed Taken 04/08/2025 [...] Kami Moreno RN Medication Review/Management: medications reviewed Problem: Violence [...] RN Medication Review/Management: medications reviewed Taken 04/08/2025 2000 by Kami Moreno RN Medication Review/Management: medications [...] SNF upon dc. Anticipated Discharge Disposition (PT): [facility] facility * Salina Allan RN - 04/08/2025 [...] Thromboembolism) Risk Recent Flowsheet Documentation Taken 04/08/2025 by Salina Allan RN VTE Prevention/Management: (see [...] environmental surveillance performed rest/sleep promoted Taken 04/08/2025 by Salina Allan RN Infection Prevention: hand [...] - heel incontinence pads utilized Taken 04/07/2025 220 by Salina Allan RN Activity Management: activity [...] Seizure Symptom Control Recent Flowsheet Documentation Taken 04/08/2025399 by Salina Allan RN Medication Review/Management: medications reviewed Taken 04/07/20252199 by Salina Allan RN Medication Review/Management: medications reviewed Taken 04/07/20251999 by Salina Allan RN Sensory Stimulation Regulation: care clustered lighting decreased quiet environment promoted Medication Review/Management: medications reviewed Problem: Violence Risk or Actual Goal: Anger and Impulse Control Outcome: Progressing Intervention: Minimize Safety Risk Recent Flowsheet Documentation Taken 04/08/20250 by Salina Allan RN Enhanced Safety Measures: bed alarm set Taken 04/08/2025 0200 by Salina Allan RN Enhanced Safety Measures: bed alarm set Taken 04/08/2025 by Salina Allan RN Enhanced Safety Measures: [...] Promote Injury-Free Environment Recent Flowsheet Documentation Taken 04/08/2025399 by Salina Allan RN Safety Promotion/Fall Prevention: [...] Goal Outcome Evaluation: * Imelda Gordillo MS CF-HVAC R TECH - 04/07/2025 12:05 PM EDT Goal Outcome Evaluation: Plan of Care Reviewed With: patient Anticipated Discharge Disposition (HVAC R TECH): [facility]ci facility HVAC R TECH Swallowing Diagnosis: mild, oral dysphagia, pharyngeal dysphagia [...] encouraged BADL personal objects within reach Taken 04/06/20251999 by Hattie Morales RN Self-Care Promotion: independence [...] organization consistent safety round/check completed Taken 04/06/2025 220 by Hattie Morales RN Safety Promotion/Fall [...] NSR, RA. Plan of care continues, * Madison Dial MS CCC-HVAC R TECH - 04/06/2025 12:02 PM EDT Problem: Adult Inpatient Plan of Care Goal: Plan of Care Review Outcome: Progressing Flowsheets (Taken 04/06/2025 1201) Plan of Care Reviewed With: patient Goal Outcome Evaluation: Plan of Care Reviewed With: patient HVAC R TECH treatment completed. Will address dysphagia with FEES tomorrow. Please see note for further details and recommendations. Treatment Assessment (HVAC R TECH): clinical signs of, aspiration (04/06/25 111) Treatment Assessment Comments (HVAC R TECH): Delayed coughs noted w/ nectar-thick liquid today. No s/sx aspiration w/ puree or honey-thick liquid. Recommend downgrade to honey liquids and repeat FEES tomorrow. (04/06/25 111) Plan for Continued Treatment (HVAC R TECH): continue treatment per plan of care (04/06/251114) * Hattie Morales RN - 04/06/2025 7:32 [...] incontinence pads utilized Taken 04/05/2025 2200 by Htatie Morales RN Body Position: turned right heels [...] rest/sleep promoted single patient room provided Taken 04/05/20251999 by Hattie Morales RN Infection Prevention: environmental [...] off bed Head of Bed (HOB) Positioning: [facility] elevated Pressure Reduction Devices: pressure-redistributing mattress utilized [...] Manage Contributors Recent Flowsheet Documentation Taken 04/06/2025 06 by Hattie Morales RN Self-Care Promotion: independence encouraged BADL personal objects within reach Taken 04/06/2025 0400 by Hattie Morales RN Self-Care Promotion: independence encouraged BADL personal objects within reach Taken 04/06/2025 0200 by Hattie Morales RN Self-Care Promotion: independence encouraged BADL personal objects within reach Taken 04/06/2025 0000 by Hattie Morales RN Self-Care Promotion: independence encouraged BADL personal objects within reach Taken 04/05/20252199 by Hattie Morales RN Self-Care Promotion: independence encouraged BADL personal objects within reach Taken 04/05/20251999 by Hattie Morales RN Medication Review/Management: medications reviewed Self-Care Promotion: independence encouraged BADL personal objects within reach Intervention: Promote Injury-Free Environment Recent Flowsheet Documentation Taken 04/06/2025 06 by Hattie Morales RN Safety Promotion/Fall Prevention: [...] d/c to SNF. Anticipated Discharge Disposition (OT): [facility] facility * Hattie Morales RN - 04/05/2025 [...] off bed Head of Bed (HOB) Positioning: [facility] elevated Pressure Reduction Devices: pressure-redistributing mattress utilized [...] off bed Head of Bed (HOB) Positioning: [facility] elevated Pressure Reduction Devices: pressure-redistributing mattress utilized [...] alarm set Taken 04/05/2025 0000 by Hattie Morales RN Enhanced Safety [...] organization consistent safety round/check completed Taken 04/04/2025 2200 by Hattie Morales RN Safety Promotion/Fall [...] Pressure Protection: tubing/devices free from skin contact grsl-dy-cpgy areas padded tbrp-gc-pzhiny areas padded pressure points protected positioning supports utilized adhesive use limited Taken 04/04/2025 1200 by Susannah Aly RN Device Skin Pressure Protection: tubing/devices free from skin contact gfxd-nw-edab areas padded svor-vl-omgddx areas padded pressure points protected positioning supports utilized adhesive use limited absorbent pad utilized/changed Taken 04/04/2025 0811 by Susannah Aly RN Device Skin Pressure Protection: tubing/devices free from skin contact tvid-ge-ency areas padded bpit-eh-gdrjav areas padded pressure points protected positioning supports [...] changes, weight shifts, use of support surface, medical research assistant repositioning, protective dressing application, use of positioning device, microclimate control, use of iwatwewg-tvciku-llspsuu Encourage increased activity, such as sitting in a chair at the bedside or early mobilization, whenable to tolerate. Avoid prolonged sitting. Recent Flowsheet Documentation Taken 04/04/2025 1800 by Susannah Aly RN Head of Bed ([facility]) Positioning: HOB at 30-45 degrees Taken 04/04/2025 [...] by Susannah Aly RN Head of Bed ([facility]) Positioning: HOB at 30 degrees Taken 04/04/2025 1404 by Susannah Aly RN Head of Bed ([facility]) Positioning: HOB elevated Taken 04/04/2025 1200 by Susannah Aly RN Pressure Reduction Techniques: weight shift assistance provided rest period provided between sit times sit time limited to 2 hours pressure points protected heels elevated off bed Head of Bed ([facility]) Positioning: HOB elevated Pressure Reduction Devices: pressure-redistributing mattress utilized positioning supports utilized heel offloading device utilized foam padding utilized Skin Protection: skin sealant/moisture barrier applied silicone border foam - sacrum/coccyx silicone border foam - heel protective footwear used pectin skin barriers applied incontinence pads utilized Taken 04/04/2025 1000 by Susannah Aly RN Head of Bed ([facility]) Positioning: HOB elevated Taken 04/04/2025 0811 by Susannah Aly RN Pressure Reduction Techniques: heels elevated off bed pressure points protected rest period provided between sit times sit time limited to 2 hours weight shift assistance provided Head of Bed ([facility]) Positioning: HOB elevated Pressure Reduction Devices: pressure-redistributing [...] safety round/check completed Taken 04/04/2025 0000 by Sfoia Encarnacion RN Safety Promotion/Fall Prevention: activity supervised [...] Taken 04/04/2025 0400 by Sofia Encarnacion RN Replanting Machine Crewman Protection: tubing secured Taken 04/04/2025 0200 by Sofia Encarnacion RN Replanting Machine Crewman Protection: tubing secured Taken 04/04/2025 0000 by Sofia Encarnacion RN Replanting Machine Crewman Protection: tubing secured Taken 04/03/2025 2200 by Sofia Encarnacion RN Replanting Machine Crewman Protection: tubing secured Taken 04/03/20251999 by Sofia Encarnacion RN Replanting Machine Crewman Protection: tubing secured Diversional Activities: television Intervention: [...] at bedside suction at bedside Taken 04/04/2025 by Sofia Encarnacion RN Airway Safety Measures: oxygen flowmeter at bedside suction at bedside Taken 04/03/20252199 by Sofia Encarnacion RN Airway Safety Measures: [...] Protection: absorbent pad utilized/changed pressure points protected uwqt-mw-ngbnje areas padded tubing/devices free from skin contact Taken 04/04/2025 0200 by Sofia Encarnacion RN Device Skin Pressure Protection: absorbent pad utilized/changed pressure points protected gnxd-cg-wyhxnc areas padded tubing/devices free from skin contact Taken 04/04/2025 0000 by Sofia Encarnacion RN Device Skin Pressure Protection: absorbent pad utilized/changed pressure points protected fmpp-bz-xkvszc areas padded tubing/devices free from skin contact Taken 04/03/2025 2200 by Sofia Encarnacion RN Device Skin Pressure Protection: absorbent pad utilized/changed pressure points protected ypln-le-sdsawr areas padded tubing/devices free from skin contact [...] of Bed (HOB) Positioning: HOB elevated Taken 04/03/20250 by Sofia Encarnacion RN Head of Bed [...] heel silicone border foam - sacrum/coccyx Taken 04/03/20250 by Sofia Encarnacion RN Activity Management: activity [...] Safety Measures: bed alarm set Taken 04/03/2025 2200 by Sofia Encarnacion RN Enhanced Safety Measures: [...] Outcome: Progressing Goal Outcome Evaluation: * Virginie Jacinot MS CCC-HVAC R TECH - 04/03/2025 2:22 PM EDT Goal Outcome Evaluation: Plan of Care Reviewed With: patient, other (see comments) (RN) Progress: improving Anticipated Discharge Disposition (HVAC R TECH): [facility] facility Treatment Assessment (HVAC R TECH): clinical signs of, aspiration, dysarthria, cognitive-linguistic disorder (04/03/251421) Plan for Continued Treatment (HVAC R TECH): continue treatment per plan of care (04/03/251421) * Susannah Strickland Speech Therapy Student - 04/03/2025 9:20 AM EDT Goal Outcome Evaluation: Plan of Care Reviewed With: (P) patient, other (see comments) (RN) Progress: (P) improving Anticipated Discharge Disposition (HVAC R TECH): (P) [facility] facility Treatment Assessment (HVAC R TECH): (P) continued, toleration of diet, oral dysphagia, mild-moderate, pharyngeal dysphagia (04/03/25919) Plan for Continued Treatment (HVAC R TECH): (P) continue treatment per plan of care (04/03/25919) Cosigned by Virginie Jacinto MS CCC-HVAC R TECH at 04/03/2025 1:25 PM EDT Associated attestation - Virginie Jacinto MS CCC-HVAC R TECH - 04/03/2025 1:25 PM EDT Virginie Jacinto, MS CCC-HVAC R TECH * Zakia Cárdenas RN - 04/02/2025 5:54 PM EDT Goal Outcome Evaluation: Pt Aox2. Continued drowsiness. 1L LR bolus given. 75mL LR and D5. UOP 300mL- Bladder scan 0mL, gonsalez irrigated for patency, CARD READER aware. Pt up to chair with PT/OT. * Yumi Singh, Speech Therapy Student - 04/02/2025 2:34 PM EDT Goal Outcome Evaluation: Plan of Care Reviewed With: (P) patient, other (see comments) (RN) Progress: (P) improving Anticipated Discharge Disposition (HVAC R TECH): (P) [facility] facility HVAC R TECH Diagnosis: mild-moderate, cognitive-linguistic disorder, dysarthria (04/02/25 1100) HVAC R TECH Swallowing Diagnosis: (P) oral dysphagia, mild-moderate, pharyngeal dysphagia (04/02/25 1330) Cosigned by Denice Alva, MS CCC-HVAC R TECH at 04/02/2025 3:04 PM EDT Associated attestation - Denice Alva, MS CCC-HVAC R TECH - 04/02/2025 3:04 PM EDT Denice Alva MS CCC-HVAC R TECH * Yumi Singh, Speech Therapy Student - 04/02/2025 12:38 PM EDT Goal Outcome Evaluation: Plan of Care Reviewed With: (P) patient, other (see comments) (RN) Progress: (P) improving Anticipated Discharge Disposition (HVAC R TECH): (P) [facility] facility HVAC R TECH Diagnosis: (P) mild-moderate, cognitive-linguistic disorder, dysarthria (04/02/25 1100) HVAC R TECH Swallowing Diagnosis: (P) oral dysphagia, R/O pharyngeal dysphagia (04/02/25 1100) Cosigned by Denice Alva, MS CCC-HVAC R TECH at 04/02/2025 1:07 PM EDT Associated attestation - Denice Alva MS CCC-HVAC R TECH - 04/02/2025 1:07 PM EDT Denice Alva, MS CCC-HVAC R TECH * Wendi Boswell, PT - 04/02/2025 10:50 [...] continueto monitor progress. Anticipated Discharge Disposition (PT): [facility] facility * Shelly Jones, OT - 04/02/2025 10:50 AM EDT Goal Outcome Evaluation: Outcome Evaluation: OT eval complete. Pt presents with deficits including generalized weakness, decreased functional mobility, decreased activity tolerance, and decreased balance warranting IPOT services. Stand pivot transfer with max A x2, completed sit to stand with mod A x2. Rec d/c to SNF. Anticipated Discharge Disposition (OT): [facility] facility * Modesta Gunderson RN - 04/02/2025 6:50 AM EDT Goal Outcome Evaluation: Progress: improving O2 sat decreased to high 80s at beginning of shift, 2L NC worn through night. Pt weaned off levo and precedex. BP tolerating and VSS. Pt remains slightly drowsy and confused. * Zakia Cárdenas, RN - 04/01/2025 6:37 PM EDT Goal Outcome Evaluation: Extubated 1506. RA. Pt drowsy and oriented to self only. Very restless. CIWA 4- 7. Levophed and precedex, see mar. * Av Varghese MS CCC-HVAC R TECH - 04/01/2025 4:12 PM EDT Goal Outcome Evaluation: Plan of Care Reviewed With: patient Progress: no change Anticipated Discharge Disposition (HVAC R TECH): [facility] facility HVAC R TECH Swallowing Diagnosis: oral dysphagia, R/O pharyngeal dysphagia (04/01/25 1545) * Poonam Brizuela RN - 04/01/2025 5:53 [...] Notes * Case Management/Social Work - Yumiko Thomas, RN - 04/09/2025 8:41 AM EDT Case Management Discharge Note Final Note: Patient's plan is an acute rehab bed at [facility] in stroke unit at [facility] today, 04/09. Nurse to call report to [phone]. CM will fax discharge summary when available to [phone]. [facility] will transport at 1130. Patient needs to be at the Maternity entrance by 1120. Selected Continued Care - Admitted Since 03/31/2025 Destination Coordination complete. Service Provider Services Address Phone Fax Patient Preferred [facility] Inpatient Rehabilitation [address] [id number] -- Durable Medical Equipment No services [...] community resources. Transportation Services Transportation: W/C Van ([facility]) W/C Van: Other Final Discharge Disposition Code: 62 - inpatient rehab facility * Case Management/Social Work - Yumiko Thomas, RN - 04/08/2025 2:20 PM EDT Continued Stay Note [facility] Patient Name: Regine Anguiano Today's Date: 04/08/2025 Admit Date: 03/31/2025 Plan: Inpatient Rehab Discharge Plan Row Name 04/08/25 1417 Plan Plan Inpatient Rehab Plan Comments Spoke with admissions at [facility] They do not have any available beds. Attempted to follow up on referral to [facility], no answer. Called [facility] and they do nothave a rehab unit. Referral also given to [facility] at [facility]. CM will continue to follow. Discharge Codes No documentation. Expected Discharge Date and Time Expected Discharge Date Expected Discharge Time Apr 10, 2025 Yumiko Thomas, RN * Therapy Treatment Note - CampbellCorin odom, PT - 04/08/2025 2:15 PM EDT Images [...] Provider Type Corin Segundo, PT Physical Therapist Mobility Row Name 04/08/25 1452 Bed Mobility Bed Mobility supine-sit -KR Supine-Sit Bee (Bed Mobility) contact guard -KR Assistive Device (Bed Mobility) bed rails;head of bed elevated;repositioning sheet -KR Comment, (Bed Mobility) cues for LE progression and bedrail use -KR Row Name 04/08/25 145 Sit-Stand Transfer Sit-Stand Bee (Transfers) moderate assist (50% patient effort);1 person assist -KR Assistive Device (Sit-Stand Transfers) walker, front-wheeled -KR Comment, (Sit-Stand Transfer) 1x from bed, 5x STS transfer training from chair with cues for safe hand placement, 1x STS from chair, 1x from toilet with cues for grab bar use. -KR Row Name 04/08/25 145 Gait/Stairs (Locomotion) Bee Level (Gait) moderate assist (50% patient effort);1 [...] Provider Type Corin Segundo, PT Physical Therapist Obj/Interventions Row Name 04/08/25 [...] Exercise) 10 repetitions;bilateral;dorsiflexion;plantarflexion -KR Row Name 04/08/25 1454 Balance Balance Assessment sitting static balance;sitting dynamic [...] No documentation. Clinical Impression Row Name 04/08/25 1454 Pain Pretreatment Pain Rating 0/10 - no pain -KR Posttreatment Pain Rating 0/10 - no pain -KR Row Name 04/08/25 1454 Plan of Care Review Plan of Care [...] Patient Position Sitting -KR Row Name 04/08/25 1454 Positioning and Restraints Pre-Treatment Position in bed -KR Post Treatment Position chair -KR In Chair notified nsg;reclined;encouraged to call for assist;call light within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 aspiration precautions, assist with feeding, no straw, check mouth frequently for oral residue/pocketing () HVAC R TECH Rec. for Method of Medication Administration: meds whole, with puree, as tolerated (04/03/251421) Monitor for Signs of Aspiration: yes, notify HVAC R TECH if any concerns (04/03/251421) Anticipated Discharge Disposition (HVAC R TECH): [facility]ci facility (04/03/251421) Therapy Frequency (Swallow): 5 days per week (04/03/251421) Predicted Duration Therapy Intervention (Days): 2 weeks (04/03/251421) Oral Care Recommendations: Oral Care BID/PRN, Suction toothbrush (04/03/251421) Daily Summary of Progress (HVAC R TECH): progress towards functional goals is fair (04/03/251421) Treatment Assessment (HVAC R TECH): clinical signs of, aspiration, dysarthria, cognitive-linguistic disorder (04/03/251421) Plan for Continued Treatment (HVAC R TECH): continue treatment per plan of care (04/03/251421) Progress: improving SWALLOW EVALUATION (Last 72 Hours) HVAC R TECH Adult Swallow Evaluation Row Name 04/03/25 14204/03/25 0920 04/02/25 1330 04/02/25 1100 04/01/25 1545 [...] Of Current Problem -- -- See initial HVAC R TECH eval -SM (r) LS (t) SM (c) -- Pt is a 70yoF w PMHx ETOH abuse who presented to OSH after being found down unresponsive. Pt with witnessed seizure activity and intubated. She was transferred to [facility] for higher level of care. SDH [...] -- -- unknown;other (see comments) no previous HVAC R TECH hx, pt u/a to indicate -RS Plans/Goals [...] -RS Eating/Swallowing Skills -- -- fed by HVAC R TECH;needed assist -SM (r) LS (t) SM (c) fed by HVAC R TECH -SM (r) LS(t) SM (c) fed by HVAC R TECH;unable to perform self-feeding -RS Positioning During Eating [...] vocal quality, however pt much more alert. HVAC R TECH will assess via FEES. -SM (r) LS (t) SM (c) Voice is essentially aphonic and coupled with mental status, intelligibility is low. Pt may have essential meds in puree, HVAC R TECH will re-assess and determineneed for instrumental prior [...] Secretion Rating Scale (Too et al. 1996) -- -- 1- secretions present around the [...] SM (c)-- Signs of aspiration;Silent aspiration -RS HVAC R TECH Evaluation Clinical Impression HVAC R TECH Swallowing Diagnosis -- -- oral dysphagia;mild-moderate;pharyngeal dysphagia [...] (t) SM (c) demonstrates skilled criteria -RS HVAC R TECH Treatment Clinical Impressions Treatment Assessment (HVAC R TECH) clinical signs of;aspiration;dysarthria;cognitive- linguistic disorder -MM continued;toleration of diet;oral dysphagia;mild- moderate;pharyngeal dysphagia -MM (r) EM (t) MM (c) -- -- -- Daily Summary of Progress (HVAC R TECH) progress towards functional goals is fair -MM progress toward functional goals as expected -MM (r) EM (t) MM (c) -- -- -- Barriers to Overall Progress (HVAC R TECH) Cognitive status -MM Cognitive status -MM (r) EM (t) MM (c) -- -- -- Plan for Continued Treatment (HVAC R TECH) continue treatment per plan of care -MM [...] (r) LS (t) SM (c) -- -- HVAC R TECH Diet Recommendation nectar thick liquids;ice chips between [...] SM (c) Oral Care BID/PRN;Suction toothbrush -RS HVAC R TECH Rec. for Method of Medication Administration meds whole;with puree;as tolerated -MM meds whole;with puree;as tolerated -MM (r) EM (t) MM (c) meds whole;with puree;as tolerated -SM (r) LS (t) SM (c) meds whole;with puree;as tolerated -SM (r) LS (t) SM (c) meds whole;with puree essential meds only -RS Monitor for Signs of Aspiration yes;notify HVAC R TECH if any concerns -MM yes;notify HVAC R TECH if any concerns -MM (r) EM (t) MM (c) yes;notify HVAC R TECH if any concerns -SM (r) LS (t) SM (c) yes;notify HVAC R TECH if any concerns -SM (r) LS (t) SM (c) yes;notify HVAC R TECH if any concerns -RS Anticipated Discharge Disposition (HVAC R TECH) [facility]ci facility -MM [facility] facility -MM (r) EM (t) MM (c) [facility] facility -SM (r) LS (t) SM (c) [facility] facility -SM (r) LS (t) SM (c) [facility] facility -RS Demonstrates Need for Referral to Another Service -- -- speech therapy -SM (r) LS (t) SM (c) speechtherapy -SM (r) LS (t) SM (c) speech therapy;other (see comments) Pt would benefit from full SLC eval -RS User Lockwood (r) = Recorded By, (t) = Taken By, (c) = Cosigned By Initials Name Effective Dates SM Denice Alva, MS [facility]-HVAC R TECH 07/02/24 - RS Av Varghese, MS [facility]HV[facility] R TE[facility] 02/24/23 - MM Virginie Jacinto, MS [facility]HV[facility] R TE[facility] 02/10/24 - EM Susannah Strickland, Speech Therapy Student 01/25/25 - LS Yumi Singh, Speech Therapy Student 01/29/25 - EDUCATION The patient has been educated in the following areas: Cognitive Impairment Dysphagia (Swallowing Impairment). HVAC R TECH GOALS Row Name 04/03/25 1422 04/03/25 0920 04/02/25 1400 (LTG) Patient will demonstrate functional swallow for Diet Texture (Demonstrate functional swallow) regular textures -MM regular textures -MM (r) EM (t) MM (c) -- -SM (r) LS (t) SM (c) Liquid viscosity (Demonstrate functional swallow) thin liquids -MM thin liquids -MM (r) EM (t) MM (c) -- -SM (r) LS (t) SM (c) Bee (Demonstrate functional swallow) with minimal cues (75-90% [...] -- -SM (r) LS (t) SM (c) Bee (Tolerate trials) with moderate cues (50-74% accuracy) [...] (c) -- (STG) Lingual Strengthening Goal 1 (HVAC R TECH) Activity (Lingual Strengthening Goal 1, HVAC R TECH) increase lingual tone/sensation/control/coordination/movement;increase tongue back strength -MM [...] -- -SM (r) LS (t) SM (c) Bee/Accuracy (Lingual Strengthening Goal 1, HVAC R TECH) with moderate cues (50-74% accuracy) -MM with moderate cues (50-74% accuracy) -MM (r) EM (t) MM (c) -- -SM (r) LS (t) SM (c) Time Frame (Lingual Strengthening Goal 1, HVAC R TECH) 1 week -MM 1 week -MM (r) EM (t) MM (c) -- -SM (r) LS (t) SM (c) Progress/Outcomes (Lingual Strengthening Goal 1, HVAC R TECH) goal ongoing -MM goal ongoing -MM (r) EM (t) MM (c) -- -SM (r) LS (t) SM (c) Comment (Lingual Strengthening Goal 1, HVAC R TECH) -- Pt unable to follow directions. - MM (r) EM (t) MM (c) -- (STG) Pharyngeal Strengthening Exercise Goal 1 (HVAC R TECH) Activity (Pharyngeal Strengthening Goal 1, HVAC R TECH) increase superior movement of the hyolaryngeal complex;increase [...] -- -SM (r) LS (t) SM (c) Bee/Accuracy (Pharyngeal Strengthening Goal 1, HVAC R TECH) with moderate cues (50-74% accuracy) -MM with moderate cues (50-74% accuracy) -MM (r) EM (t) MM (c) -- -SM (r) LS (t) SM (c) Time Frame (Pharyngeal Strengthening Goal 1, HVAC R TECH) 1 week -MM 1 week -MM (r) EM (t) MM (c) -- -SM (r) LS (t) SM (c) Progress/Outcomes (Pharyngeal Strengthening Goal 1, HVAC R TECH) goal ongoing -MM goal ongoing -MM (r) EM (t) MM (c) -- -SM (r) LS (t) SM (c) Comment (Pharyngeal Strengthening Goal 1, HVAC R TECH) -- Pt unable to follow directions. -MM (r) EM (t) MM(c) -- Patient will demonstrate functional communication skills for return to discharge environment Bee Independently -MM Independently -MM (r) EM (t) MM (c) -- -SM (r) LS (t) SM (c) Time frame 2 weeks -MM 2 weeks -MM (r) EM (t) MM (c) -- -SM (r) LS (t) SM (c) Progress/Outcomes goal ongoing -MM goal ongoing -MM (r) EM (t) MM (c) -- -SM (r) LS (t) SM (c) HVAC R TECH Diagnostic Treatment Patient will participate in further [...] (t) SM (c) Progress/Outcomes (Additional Goal 1, HVAC R TECH) good progress toward goal -MM progress slower [...] memory; moderate deficits w/ problem solving. -MM HVAC R TECH attempted to call pt's spouse to discuss baseline function, however, he did not answer the phone call. RN reported contact w/ spouse has been attemptedmultiple times with no response throughout length of hospitalization. Higher level cognitive linguistic evaluation not indicated at this time due to unknown baseline and difficulty following commands. -MM (r) EM (t) MM (c) -- Memory Skills Goal 1 (HVAC R TECH) Improve Memory Skills Through Goal 1 (HVAC R TECH) listen to a paragraph and answer questions;80%;with minimal cues (75-90%) -MM -- -- Time Frame (Memory Skills Goal 1, HVAC R TECH) 1 week -MM -- -- Progress/Outcomes (Memory Skills Goal 1, HVAC R TECH) new goal -MM -- -- Functional Problem Solving Skills Goal 1 (HVAC R TECH) Improve Problem Solving Through Goal 1 (HVAC R TECH) answer questions about ADL problems;determine solutions to simple ADL/safety problems;determine solutions to complex problems;80%;with minimal cues (75-90%) -MM -- -- Time Frame (Problem Solving Goal 1, HVAC R TECH) 1 week -MM -- -- Progress/Outcomes (Problem Solving Goal 1, HVAC R TECH) new goal -MM -- -- Row Name 04/02/25 1330 04/02/25 1100 (LTG) Patient will demonstrate functional swallow for Diet Texture (Demonstrate functional swallow) regular textures -SM (r) LS (t) SM (c) -- Liquid viscosity (Demonstrate functional swallow) thin liquids -SM (r) LS (t) SM (c) -- Bee (Demonstrate functional swallow) with minimal cues (75-90% [...] -SM (r) LS (t) SM (c) -- Bee (Tolerate trials) with moderate cues (50-74% accuracy) -SM (r) LS (t) SM (c) -- Time Frame (Tolerate trials) 1 week -SM (r) LS (t) SM (c) -- Progress/Outcomes (Tolerate trials) new goal -SM (r) LS (t) SM (c) -- (STG) Lingual Strengthening Goal 1 (HVAC R TECH) Activity (Lingual Strengthening Goal 1, HVAC R TECH) increase lingual tone/sensation/control/coordination/movement;increase tongue back strength -SM (r) LS (t) SM (c) -- Increase Lingual Tone/Sensation/Control/Coordination/Movement lingual resistance exercises -SM (r) LS (t) SM (c) -- Increase Tongue Back Strength lingual resistance exercises -SM (r) LS (t) SM (c) -- Bee/Accuracy (Lingual Strengthening Goal 1, HVAC R TECH) with moderate cues (50-74% accuracy) -SM (r) LS (t) SM (c) -- Time Frame (Lingual Strengthening Goal 1, HVAC R TECH) 1 week -SM (r) LS (t) SM (c) -- Progress/Outcomes (Lingual Strengthening Goal 1, HVAC R TECH) new goal -SM (r) LS (t) SM (c) -- (STG) Pharyngeal Strengthening Exercise Goal 1 (HVAC R TECH) Activity (Pharyngeal Strengthening Goal 1, HVAC R TECH) increase superior movement of the hyolaryngeal complex;increase [...] -SM (r) LS (t) SM (c) -- Bee/Accuracy (Pharyngeal Strengthening Goal 1, HVAC R TECH) with moderate cues (50-74% accuracy) -SM (r) LS (t) SM (c) -- Time Frame (Pharyngeal Strengthening Goal 1, HVAC R TECH) 1 week -SM (r) LS (t) SM (c) -- Progress/Outcomes (Pharyngeal Strengthening Goal 1, HVAC R TECH) new goal -SM (r) LS (t) SM (c) -- Patient will demonstrate functional communication skills for return to discharge environment Bee Independently -SM (r) LS (t) SM (c) Independently -SM (r) LS (t) SM (c) Time frame 2 weeks -SM (r) LS (t) SM (c) 2 weeks -SM (r) LS (t) SM (c) Progress/Outcomes goal ongoing -SM (r) LS (t) SM (c) new goal -SM (r) LS (t) SM (c) HVAC R TECH Diagnostic Treatment Patient will participate in further assessment in the following areas motor speech;higher-level cognitive-linguistic;clarification of baseline cognitive communication status -SM (r) LS (t) SM (c) motor speech;higher-level cognitive- linguistic;clarification of baseline cognitive communication status-SM (r) LS (t) SM (c) Time Frame (Diagnostic) 1 week -SM (r) LS (t) SM (c) 1 week -SM (r) LS (t) SM (c) Progress/Outcomes (Additional Goal 1, HVAC R TECH) goal ongoing -SM (r) LS (t) SM (c) new goal -SM (r) LS (t) SM (c) User Lockwood (r) = Recorded By, (t) = Taken By, (c) = Cosigned By Initials Name Provider Type Denice Regan, MS CCC-HVAC R TECH Speech and Language Pathologist Virginie Cruz MS CCC-HVAC R TECH Speech and Language Pathologist Susannah Henderson, Speech Therapy Student HVAC R TECH Student Yumi Oleary, Speech Therapy Student HVAC R TECH Student Time Calculation: Time Calculation- HVAC R TECH Row Name 04/03/25 1554 04/03/25 1211 Time Calculation- HVAC R TECH HVAC R TECH Start Time 1422 -MM 0920 -MM (r) EM (t) MM (c) HVAC R TECH Received On 04/03/25 -MM 04/03/25 -MM (r) EM (t) MM (c) Untimed Charges [id number] Treatment/ST Modification Prosth Aug Alter 24 -MM -- 33554-EF Treatment Swallow Minutes 11 -MM 68 -MM (r) EM (t) MM (c) Total Minutes Untimed Charges Total Minutes 35 -MM 68 -MM (r) EM (t) Total Minutes 35 -MM 68 -MM (r) EM (t) User Lockwood (r) = Recorded By, (t) = Taken By, (c) = Cosigned By Initials Name Provider Type Virginie Cruz, CCC-HVAC R TECH Speech and Language Pathologist Susannah Henderson, Speech Therapy Student HVAC R TECH Student Therapy Charges for Today Code Description Service Date Service Provider Modifiers Qty [id number] HC ST TREATMENT SWALLOW 1 04/03/2025 Virginie Jacinto MS CCC-HVAC R TECH GN [id number] TREATMENT SPEECH 2 04/03/2025 Virginie Jacinto MS CCC-HVAC R TECH GN 1 Virginie Jacinto MS CCC-KAREN 04/03/2025 [...] Past Surgical History: Procedure Laterality Date HYSTERECTOMY HVAC R TECH Recommendation and Plan Recommended discharge disposition is based on the functional assessment performed by PT/OT/Speech therapy (as applicable) and may not reflect the medical necessity determined by your provider or services covered by an individual patient's insurance plan or patient resource. HVAC R TECH Diet Recommendation: (P) mechanical ground textures, nectar thick liquids, ice chips between meals after oral care, with supervision (04/03/25919) Recommended Precautions and Strategies: (P) upright posture during/after eating, general aspirationprecautions, assist with feeding (04/03/25919) HVAC R TECH Rec. for Method of Medication Administration: (P) meds whole, with puree, as tolerated (04/03/25919) Monitor for Signs of Aspiration: (P) yes, notify HVAC R TECH if any concerns (04/03/25919) Anticipated Discharge Disposition (HVAC R TECH): (P) [facility] facility (04/03/25919) Therapy Frequency (Swallow): (P) 5 days per week (04/03/25919) Predicted Duration Therapy Intervention (Days): (P) 2 weeks (04/03/25919) Oral Care Recommendations: (P) Oral Care BID/PRN, Suction toothbrush (04/03/25919) Daily Summary of Progress (HVAC R TECH): (P) progress toward functional goals as expected (04/03/25919) Treatment Assessment (HVAC R TECH): (P) continued, toleration of diet, oral dysphagia, mild-moderate, pharyngeal dysphagia (04/03/25919) Plan for Continued Treatment (HVAC R TECH): (P) continue treatment per plan of care (04/03/25919) Progress: (P) improving SWALLOW EVALUATION (Last 72 Hours) HVAC R TECH Adult Swallow Evaluation Row Name 04/03/2591904/02/25 1330 04/02/25 1100 04/01/25 4880 Rehab Evaluation Document Type therapy note (daily [...] History Of Current Problem -- See initial HVAC R TECH eval -SM (r) LS (t) SM (c) -- Pt is a 70 yoF w PMHx ETOH abuse who presented to OSH after being found down unresponsive. Pt with witnessed seizure activity and intubated. She was transferred to [facility] for higher level of care. SDH [...] -- -- unknown;other (see comments) no previous HVAC R TECH hx, pt u/eliseo indicate -RS Plans/Goals Discussed [...] cannula -RS Eating/Swallowing Skills -- fed by HVAC R TECH;needed assist -SM (r) LS (t) SM (c) fed by HVAC R TECH -SM (r) LS (t) SM (c) fed by HVAC R TECH;unable to perform self-feeding -RS Positioning During Eating [...] vocal quality, however pt much more alert. HVAC R TECH will assess via FEES. -SM (r) LS (t) SM (c) Voice is essentially aphonic and coupled with mental status, intelligibility is low. Pt may have essential meds in puree, HVAC R TECH will re-assess and determine need for instrumental [...] Secretion Rating Scale (Too et al. 1996) -- 1- secretions present around the laryngeal [...] SM (c) --Signs of aspiration;Silent aspiration -RS HVAC R TECH Evaluation Clinical Impression HVAC R TECH Swallowing Diagnosis -- oral dysphagia;mild-moderate;pharyngeal dysphagia - [...] (t) SM (c) demonstrates skilled criteria -RS HVAC R TECH Treatment Clinical Impressions Treatment Assessment (HVAC R TECH) continued;toleration of diet;oral dysphagia;mild- moderate;pharyngeal dysphagia (P) -EM -- -- -- Daily Summary of Progress (HVAC R TECH) progress toward functional goals as expected (P) -EM -- -- -- Barriers to Overall Progress (HVAC R TECH) Cognitive status (P) -EM -- -- -- Plan for Continued Treatment (HVAC R TECH) continue treatment per plan of care (P) [...] (r) LS (t) SM (c) -- -- HVAC R TECH Diet Recommendation mechanical ground textures;nectar thick liquids;ice [...] SM (c) Oral Care BID/PRN;Suction toothbrush -RS HVAC R TECH Rec. for Method of Medication Administration meds whole;with puree;as tolerated (P) -EM meds whole;with puree;as tolerated -SM (r) LS (t) SM (c) meds whole;with puree;as tolerated -SM (r) LS (t) SM (c) meds whole;with puree essential meds only -RS Monitor for Signs of Aspiration yes;notify HVAC R TECH if any concerns (P) -EM yes;notify HVAC R TECH if any concerns -SM (r) LS (t) SM (c) yes;notify HVAC R TECH if any concerns -SM (r) LS (t) SM (c) yes;notify HVAC R TECH if any concerns -RS Anticipated Discharge Disposition (HVAC R TECH) [facility] facility (P) -EM [facility] facility -SM (r) LS (t) SM (c) [facility] facility -SM (r) LS (t) SM (c) [facility] facility -RS Demonstrates Need for Referral to Another Service -- speech therapy -SM (r) LS (t) SM (c) speech therapy -SM (r) LS (t) SM (c) speech therapy;other (see comments) Pt would benefit from full SLC eval -RS User Lockwood (r) = Recorded By, (t) = Taken By, (c) = Cosigned By Initials Name Effective Dates Denice Regan, MS [facility]HV[facility] R TE[facility] 07/02/24 - Av Elena, MS [facility] R TE[facility] 02/24/23 - EM Susannah Strickland, Speech Therapy Student 01/25/25 - Yumi Oleary, Speech Therapy Student 01/29/25 - EDUCATION The patient has been educated in the following areas: Dysphagia (Swallowing Impairment). HVAC R TECH GOALS Row Name 04/03/25 0920 04/02/25 1400 [...] liquids -SM (r) LS (t) SM (c) Bee (Demonstrate functional swallow) with minimal cues (75-90% [...] prep/transit/clearance -SM (r) LS (t) SM (c) Bee (Tolerate trials) with moderate cues (50-74% accuracy) (P) -EM -- - SM (r) LS (t) SM (c) with moderate cues (50-74% accuracy) -SM (r) LS (t) SM (c) Time Frame (Tolerate trials) 1 week (P) -EM -- -SM (r) LS (t) SM (c) 1 week -SM (r) LS (t) SM (c) Progress/Outcomes (Tolerate trials) continuing progress toward goal (P) -EM -- -SM (r) LS (t) [...] -- -- (STG) Lingual Strengthening Goal 1 (HVAC R TECH) Activity (Lingual Strengthening Goal 1, HVAC R TECH) increase lingual tone/sensation/control/coordination/movement;increase tongue back strength (P) [...] exercises -SM (r) LS (t) SM (c) Bee/Accuracy (Lingual Strengthening Goal 1, HVAC R TECH) with moderate cues (50-74% accuracy) (P) -EM -- -SM (r) LS (t) SM (c) with moderate cues (50-74% accuracy) -SM (r) LS (t) SM (c) Time Frame (Lingual Strengthening Goal 1, HVAC R TECH) 1 week (P) -EM -- -SM (r) LS (t) SM (c) 1 week -SM (r) LS (t) SM (c) Progress/Outcomes (Lingual Strengthening Goal 1, HVAC R TECH) goal ongoing (P) -EM -- - SM (r) LS (t) SM (c)new goal -SM (r) LS (t) SM (c) Comment (Lingual Strengthening Goal 1, HVAC R TECH) Pt unable to follow directions. (P) -EM -- -- (STG) Pharyngeal Strengthening Exercise Goal 1 (HVAC R TECH) Activity (Pharyngeal Strengthening Goal 1, HVAC R TECH) increase superior movement of the hyolaryngeal complex;increase [...] swallow -SM (r) LS (t) SM (c) Bee/Accuracy (Pharyngeal Strengthening Goal 1, HVAC R TECH) with moderate cues (50-74% accuracy) (P) -EM -- -SM (r) LS (t) SM (c) with moderate cues (50-74% accuracy) -SM (r) LS (t) SM (c) Time Frame (Pharyngeal Strengthening Goal 1, HVAC R TECH) 1 week (P) -EM -- -SM (r) LS (t) SM (c) 1 week -SM (r) LS (t) SM (c) Progress/Outcomes (Pharyngeal Strengthening Goal 1, HVAC R TECH) goal ongoing (P) -EM -- -SM (r) LS (t) SM (c) new goal -SM (r) LS (t) SM (c) Comment (Pharyngeal Strengthening Goal 1, HVAC R TECH) Pt unable to follow directions. (P) -EM -- -- Patient will demonstrate functional communication skills for return to discharge environment Bee Independently (P) -EM -- -SM (r) LS (t) SM (c) Independently -SM (r) LS (t) SM (c) Time frame 2 weeks (P) -EM -- -SM (r) LS (t) SM (c) 2 weeks -SM (r) LS (t) SM (c) Progress/Outcomes goal ongoing (P) -EM -- -SM (r) LS (t) SM (c) goal ongoing -SM (r) LS (t) SM (c) HVAC R TECH Diagnostic Treatment Patient will participate in further [...] (t) SM (c) Progress/Outcomes (Additional Goal 1, HVAC R TECH) progress slower than expected (P) -EM -- -SM (r) LS (t) SM (c) goal ongoing -SM (r) LS (t) SM (c) Comment (Diagnostic) HVAC R TECH attempted to call pt's spouse to discuss [...] communication skills for return to discharge environment Bee Independently -SM (r) LS (t) SM (c) Time frame 2 weeks -SM (r) LS (t) SM (c) Progress/Outcomes new goal -SM (r) LS (t) SM (c) HVAC R TECH Diagnostic Treatment Patient will participate in further assessment in the following areas motor speech;higher-level cognitive-linguistic;clarification of baseline cognitive communication status -SM (r) LS (t) SM (c) Time Frame (Diagnostic) 1 week -SM (r) LS (t) SM (c) Progress/Outcomes (Additional Goal 1, HVAC R TECH) new goal -SM (r) LS (t) SM (c) User Lockwood (r) = Recorded By, (t) = Taken By, (c) = Cosigned By Initials Name Provider Type Denice Regan, MS [facility]HV[facility] R TE[facility] Speech and Language Pathologist Susannah Henderson, Speech Therapy Student HVAC R TECH Student Yumi Oleary, Speech Therapy Student HVAC R TECH Student Time Calculation: Time Calculation- HVAC R TECH Row Name 04/03/25 1211 Time Calculation- HVAC R TECH HVAC R TECH Start Time 0920 (P) -EM HVAC R TECH Received On 04/03/25 (P) -EM Untimed Charges [id number] Treatment Swallow Minutes 68 (P) -EM Total Minutes Untimed Charges Total Minutes 68 (P) -EM Total Minutes 68 (P) -EM User Lockwood (r) = Recorded By, (t) = Taken By, (c) = Cosigned By Initials Name Provider Type EM Susannah Strickland Speech Therapy Student HVAC R TECH Student Susannah Strickland Speech Therapy Student 04/03/2025 Cosigned by Virginie Jacinto MS CCC-HVAC R TECH at 04/03/2025 1:25 PM EDT Associated attestation - Vigrinie Jacinto MS CCC-KAREN - 04/03/2025 1:25 PM EDT Virginie Jacinto MS CCC-HVAC R TECH * Therapy Evaluation - Yumi Singh, Speech Therapy Student - 04/02/2025 2:35 PM EDT Images from the original note were not included. Acute Care - Speech Language Pathology Swallow Initial Evaluation [facility] Fiberoptic Endoscopic Evaluation of Swallowing (FEES) [...] file. No past surgical history on file. HVAC R TECH Recommendation and Plan Recommended discharge disposition is based on the functional assessment performed by PT/OT/Speech therapy (as applicable) and may not reflect the medical necessity determined by your provider or services covered by an individual patient's insurance plan or patient resource. HVAC R TECH Swallowing Diagnosis: (P) oral dysphagia, mild-moderate, pharyngeal dysphagia (04/02/25 1330) HVAC R TECH Diet Recommendation: (P) mechanical ground textures, nectar thick liquids, ice chips between meals after oral care, with supervision (04/02/251329) Recommended Precautions and Strategies: (P) upright posture during/after eating, general aspirationprecautions, assist with feeding (04/02/251329) HVAC R TECH Rec. for Method of Medication Administration: (P) meds whole, with puree, as tolerated (04/02/251329) Monitor for Signs of Aspiration: (P) yes, notify HVAC R TECH if any concerns (04/02/251329) Recommended Diagnostics: FEES (04/02/25 1100) Swallow Criteria for Skilled Therapeutic Interventions Met: (P) demonstrates skilled criteria (04/02/251329) Anticipated Discharge Disposition (HVAC R TECH): (P) [facility] facility (04/02/251329) Rehab Potential/Prognosis, Swallowing: (P) adequate, monitor progress closely (04/02/251329) Therapy Frequency (Swallow): (P) 5 days per week (04/02/251329) Predicted Duration Therapy Intervention (Days): (P) 2 weeks (04/02/251329) Oral Care Recommendations: (P) Oral Care BID/PRN, Suction toothbrush (04/02/251329) Demonstrates Need for Referral to Another Service: (P) speech therapy (04/02/251329) Progress: (P) improving SWALLOW EVALUATION (Last 72 Hours) HVAC R TECH Adult Swallow Evaluation Row Name 04/02/25132904/02/25 1100 04/01/25 1545 Rehab Evaluation Document Type evaluation (P) -LS [...] Pertinent History Of Current Problem See initial HVAC R TECH eval (P) -LS -- Pt is a 70 yoF w PMHx ETOH abuse who presented to OSH after being found down unresponsive. Pt with witnessed seizure activity and intubated. She was transferred to [facility] for higher level of care. SDH [...] -- -- unknown;other (see comments) no previous HVAC R TECH hx, pt u/a toindicate -RS Plans/Goals Discussed [...] nasal cannula -RS Eating/Swallowing Skills fed by HVAC R TECH;needed assist (P) -LS fed by HVAC R TECH -SM (r) LS (t) SM (c) fed by HVAC R TECH;unable to perform self-feeding -RS Positioning During Eating [...] vocal quality, however pt much more alert. HVAC R TECH willassess via FEES. -SM (r) LS (t) SM (c) Voice is essentially aphonic and coupled with mental status,intelligibility is low. Pt may have essential meds in puree, HVAC R TECH will re-assess and determine need for instrumental [...] -LS -- Signs of aspiration;Silent aspiration -RS HVAC R TECH Evaluation Clinical Impression HVAC R TECH Swallowing Diagnosis oral dysphagia;mild-moderate;pharyngeal dysphagia (P) - [...] (Days) 2 weeks (P) -LS -- -- HVAC R TECH Diet Recommendation mechanical ground textures;nectar thick liquids;ice [...] SM (c) Oral Care BID/PRN;Suction toothbrush -RS HVAC R TECH Rec. for Method of Medication Administration meds whole;with puree;as tolerated (P) -LS meds whole;with puree;as tolerated -SM (r) LS (t) SM (c) meds whole;with puree essential meds only -RS Monitor for Signs of Aspiration yes;notify HVAC R TECH if any concerns (P) -LS yes;notify HVAC R TECH if any concerns -SM (r) LS (t) SM (c) yes;notify HVAC R TECH if any concerns -RS Anticipated Discharge Disposition (HVAC R TECH) [facility] facility (P) -LS [facility] facility -SM (r) LS (t) SM (c) [facility] facility -RS Demonstrates Need for Referral to Another Service speech therapy (P) -LS speech therapy -SM (r) LS (t) SM (c) speech therapy;other (see comments) Pt would benefit from full SLC eval -RS User Lockwood (r) = Recorded By, (t) = Taken By, (c) = Cosigned By Initials Name Effective Dates Denice Regan, MS CCC-HVAC R TECH 07/02/24 - RS Mikey Vargheseh, MS [facility]-HVAC R TECH 02/24/23 - Yumi Oleary, Speech Therapy Student 01/29/25 - EDUCATION The patient has been educated in the following areas: Dysphagia (Swallowing Impairment) Oral Care/Hydration Modified Diet Instruction. HVAC R TECH GOALS Row Name 04/02/25 1400 04/02/25 1330 04/02/25 1100 (LTG) Patient will demonstrate functional swallow for Diet Texture (Demonstrate functional swallow) -- (P) -LS regular textures (P) - LS -- Liquid viscosity (Demonstrate functional swallow) -- (P) -LS thin liquids (P) - LS -- Bee (Demonstrate functional swallow) -- (P) -LS with [...] aspiration;with adequate oral prep/transit/clearance (P) -LS -- Bee (Tolerate trials) -- (P) -LS with moderate cues (50-74% accuracy) (P) -LS -- Time Frame (Tolerate trials) -- (P) -LS 1 week (P) -LS -- Progress/Outcomes (Tolerate trials) -- (P) -LS new goal (P) -LS -- (STG) Lingual Strengthening Goal 1 (HVAC R TECH) Activity (Lingual Strengthening Goal 1, HVAC R TECH) -- (P) -LS increase lingual tone/sensation/control/coordination/movement;increase tongue back strength (P) - LS -- Increase Lingual Tone/Sensation/Control/Coordination/Movement -- (P) -LS lingual resistance exercises (P) -LS -- Increase Tongue Back Strength -- (P) -LS lingual resistance exercises (P) -LS -- Bee/Accuracy (Lingual Strengthening Goal 1, HVAC R TECH) -- (P) -LS with moderate cues (50-74% accuracy) (P) -LS -- Time Frame (Lingual Strengthening Goal 1, HVAC R TECH) -- (P) -LS 1 week (P) -LS -- Progress/Outcomes (Lingual Strengthening Goal 1, HVAC R TECH) -- (P) -LS new goal (P) - LS -- (STG) Pharyngeal Strengthening Exercise Goal 1 (HVAC R TECH) Activity (Pharyngeal Strengthening Goal 1, HVAC R TECH) -- (P) -LS increase superior movement of [...] -LS hard effortful swallow (P) -LS -- Bee/Accuracy (Pharyngeal Strengthening Goal 1, HVAC R TECH) -- (P) -LS with moderate cues (50-74% accuracy) (P) -LS -- Time Frame (Pharyngeal Strengthening Goal 1, HVAC R TECH) -- (P) -LS 1 week (P) -LS -- Progress/Outcomes (Pharyngeal Strengthening Goal 1, HVAC R TECH) -- (P) -LS new goal (P) -LS -- Patient will demonstrate functional communication skills for return to discharge environment Bee -- (P) -LS Independently (P) -LS Independently -SM (r) LS (t) SM (c) Time frame -- (P) -LS 2 weeks (P) -LS 2 weeks -SM (r) LS (t) SM (c) Progress/Outcomes -- (P) -LS goal ongoing (P) -LS new goal (P) -LS HVAC R TECH Diagnostic Treatment Patient will participate in further assessment in the following areas -- (P) -LS motor speech;higher-level cognitive-linguistic;clarification of baseline cognitive communication status (P) -LS motor speech;higher-level cognitive- linguistic;clarification of baseline cognitive communication status -SM (r) LS (t) SM (c) Time Frame (Diagnostic) -- (P) -LS 1 week (P) -LS 1 week -SM (r) LS (t) SM (c) Progress/Outcomes (Additional Goal 1, HVAC R TECH) -- (P) -LS goal ongoing (P) -LS new goal -SM (r) LS (t) SM (c) User Lockwood (r) = Recorded By, (t) = Taken By, (c) = Cosigned By Initials Name Provider Type Denice Regan MS [facility]-HVAC R TECH Speech and Language Pathologist Yumi Oleary, Speech Therapy Student HVAC R TECH Student Time Calculation: Time Calculation- HVAC R TECH Row Name 04/02/25 1434 04/02/25 1241 Time Calculation- HVAC R TECH HVAC R TECH Start Time 1330 (P) -LS 1100 -SM (r) LS (t) SM (c) HVAC R TECH Received On 04/02/25 (P) -LS 04/02/25 -SM (r) LS (t) SM (c) Untimed Charges 00541-QJ Eval Speech and Production w/ Language Minutes -- 20 -SM (r) LS (t) SM (c) 57497-HQ Eval Oral Pharyng Swallow Minutes -- 40 -SM (r) LS (t) SM (c) 64978-OZ Fiberoptic Endo Eval Swallow Minutes 58 (P) -LS -- Total Minutes Untimed Charges Total Minutes 58 (P) -LS 60 -SM (r) LS (t) Total Minutes 58 (P) -LS 60 -SM (r) LS (t) User Lockwood (r) = Recorded By, (t) = Taken By, (c) = Cosigned By Initials Name Provider Type Denice Regan MS CCC-HVAC R TECH Speech and Language Pathologist Yumi Oleary, Speech Therapy Student HVAC R TECH Student Therapy Charges for Today Code Description Service Date Service Provider Modifiers Qty [id number] HC ST EVAL SPEECH AND PROD W LANG 2 04/02/2025 Yumi Singh, Speech Therapy Student GN [id number] EVAL ORAL PHARYNG SWALLOW 3 04/02/2025 Yumi Singh, Speech Therapy Student GN [id number] FIBEROPTIC ENDO EVAL SWALL 4 04/02/2025 Yumi Singh, Speech Therapy StudentGN 1 Yumi Mccain Speech Therapy Student 04/02/2025 Cosigned by Denice Alva MS CCC-HVAC R TECH at 04/02/2025 3:04 PM EDT Associated attestation - Denice Alva MS CCC-HVAC R TECH - 04/02/2025 3:04 PM EDT Denice Alva MS CCC-HVAC R TECH * Therapy Re-Evaluation - Yumi Singh, Speech Therapy Student - 04/02/2025 12:45 PM EDT Images from the original note were not included. Acute Care - Speech Language Pathology Swallow Re-Evaluation [facility] Clinical Swallow Evaluation Cognitive-Communication Evaluation Patient [...] file. No past surgical history on file. HVAC R TECH Recommendation and Plan Recommended discharge disposition is based on the functional assessment performed by PT/OT/Speech therapy (as applicable) and may not reflect the medical necessity determined by your provider or services covered by an individual patient's insurance plan or patient resource. HVAC R TECH Swallowing Diagnosis: (P) oral dysphagia, R/O pharyngeal dysphagia (04/02/25 1100) HVAC R TECH Diet Recommendation: (P) NPO (04/02/251099) Recommended Precautions and Strategies: (P) upright posture during/after eating, general aspirationprecautions (04/02/251099) HVAC R TECH Rec. for Method of Medication Administration: (P) meds whole, with puree, as tolerated (04/02/251099) Monitor for Signs of Aspiration: (P) yes, notify HVAC R TECH if any concerns (04/02/251099) Recommended Diagnostics: (P) FEES (04/02/251099) Swallow Criteria for Skilled Therapeutic Interventions Met: (P) demonstrates skilled criteria (04/02/251099) Anticipated Discharge Disposition (HVAC R TECH): (P) [facility] facility (04/02/251099) Rehab Potential/Prognosis, Swallowing: (P) adequate, monitor progress closely (04/02/251099) Predicted Duration Therapy Intervention (Days): (P) 2 weeks (04/02/251099) Oral Care Recommendations: (P) Oral Care BID/PRN, Suction toothbrush (04/02/251099) Demonstrates Need for Referral to Another Service: (P) speech therapy (04/02/251099) Progress: (P) improving SWALLOW EVALUATION (Last 72 Hours) HVAC R TECH Adult Swallow Evaluation Row Name 04/02/25 1100 04/01/25 1249 Rehab Evaluation Document Type evaluation;re-evaluation (P) -LS [...] activity and intubated. She was transferred to [facility] for higher level of care. SDH [...] Function-Swallowing -- unknown;other (see comments) no previous HVAC R TECH hx, pt u/a to indicate -RS Plans/Goals [...] nasal cannula -RS Eating/Swallowing Skills fed by HVAC R TECH (P) -LS fed by HVAC R TECH;unable to perform self- feeding -RS Positioning During [...] vocal quality, however pt much more alert. HVAC R TECH will assess via FEES. (P) -LS Voice is essentially aphonic and coupled with mental status, intelligibility is low. Pt may have essential meds in puree, HVAC R TECH will re-assess and determine need for instrumental prior to PO diet -RS Swallowing Quality of Life Assessment Education and counseling provided -- Signs of aspiration;Silent aspiration -RS HVAC R TECH Evaluation Clinical Impression HVAC R TECH Swallowing Diagnosis oral dysphagia;R/O pharyngeal dysphagia (P) -LS oral dysphagia;R/O pharyngeal dysphagia -RS Functional Impact risk of aspiration/pneumonia (P) -LS risk of aspiration/pneumonia -RS Rehab Potential/Prognosis, Swallowing adequate, monitor progress closely (P) -LS adequate, monitor progress closely -RS Swallow Criteria for Skilled Therapeutic Interventions Met demonstrates skilled criteria (P) -LS demonstrates skilled criteria -RS Recommendations HVAC R TECH Diet Recommendation NPO (P) -LS NPO -RS Recommended Diagnostics FEES (P) -LS reassess via clinical swallow evaluation -RS Recommended Precautions and Strategies upright posture during/after eating;general aspiration precautions (P) -LS upright posture during/after eating;general aspiration precautions -RS Oral Care Recommendations Oral Care BID/PRN;Suction toothbrush (P) -LS Oral Care BID/PRN;Suction toothbrush -RS HVAC R TECH Rec. for Method of Medication Administration meds whole;with puree;as tolerated (P) -LS meds whole;with puree essential meds only -RS Monitor for Signs of Aspiration yes;notify HVAC R TECH if any concerns (P) -LS yes;notify HVAC R TECH if any concerns -RS Anticipated Discharge Disposition (HVAC R TECH) [facility] facility (P) -LS [facility] facility -RS Demonstrates Need for Referral to Another Service speech therapy (P) -LS speech therapy;other (see comments) Pt would benefit from full SLC eval -RS User Lockwood (r) = Recorded By, (t) = Taken By, (c) = Cosigned By Initials Name Effective Dates RS Av Varghese, [facility]-HVAC R TECH 02/24/23 - LS Yumi Singh, Speech Therapy Student 01/29/25 - EDUCATION The patient has been educated in the following areas: Dysphagia (Swallowing Impairment) Oral Care/Hydration. HVAC R TECH GOALS Row Name 04/02/25 1100 Patient will demonstrate functional communication skills for return to discharge environment Bee Independently (P) -LS Time frame 2 weeks (P) -LS HVAC R TECH Diagnostic Treatment Patient will participate in further assessment in the following areas motor speech;higher-level cognitive-linguistic;clarification of baseline cognitive communication status (P) -LS Time Frame (Diagnostic) 1 week (P) -LS Progress/Outcomes (Additional Goal 1, HVAC R TECH) new goal (P) -LS User Lockwood (r) = Recorded By, (t) = Taken By, (c) = Cosigned By Initials Name Provider Type LS Yumi Singh, Speech Therapy Student HVAC R TECH Student Time Calculation: Time Calculation- HVAC R TECH Row Name 04/02/25 1241 Time Calculation- HVAC R TECH HVAC R TECH Start Time 1100 (P) -LS HVAC R TECH Received On 04/02/25 (P) -LS Untimed Charges [id number] Eval Speech and Production w/ Language Minutes 20 (P) -LS [id number]-AQ Eval Oral Pharyng Swallow Minutes 40 (P) -LS Total Minutes Untimed Charges Total Minutes 60 (P) -LS Total Minutes 60 (P) -LS User Lockwood (r) = Recorded By, (t) = Taken By, (c) = Cosigned By Initials Name Provider Type LS Yumi Singh, Speech Therapy Student HVAC R TECH Student Therapy Charges for Today Code Description Service Date Service Provider Modifiers Qty [id number] HC ST EVAL SPEECH AND PROD W LANG 2 04/02/2025 Yumi Singh, Speech Therapy Student GN [phone] EVAL ORAL PHARYNG SWALLOW 3 04/02/2025 Yumi Singh Speech Therapy Student GN 1 Yumi Mccain Speech Therapy Student 04/02/2025 and Acute Care - Speech Language Pathology Initial Evaluation [facility] Patient Name: Regine Anguiano : 1955 [...] file. No past surgical history on file. HVAC R TECH Recommendation and Plan Recommended discharge disposition is based on the functional assessment performed by PT/OT/Speech therapy (as applicable) and may not reflect the medical necessity determined by your provider or services covered by an individual patient's insurance plan or patient resource. HVAC R TECH Diagnosis: (P) mild-moderate, cognitive-linguistic disorder, dysarthria (04/02/251099) Monitor for Signs of Aspiration: (P) yes, notify HVAC R TECH if any concerns (04/02/251099) Swallow Criteria for Skilled Therapeutic Interventions Met: (P) demonstrates skilled criteria (04/02/25 1100) SLC Criteria for Skilled Therapy Interventions Met: (P) yes (04/02/251099) Anticipated Discharge Disposition (HVAC R TECH): (P) [facility] facility (04/02/25 1100) Demonstrates Need for Referral to Another Service: (P) speech therapy (04/02/25 1100) Therapy Frequency (HVAC R TECH SLC): (P) 5 days per week (04/02/25 1100) Predicted Duration Therapy Intervention (Days): (P) 2 weeks (04/02/25 1100) Oral Care Recommendations: (P) Oral Care BID/PRN, Suction toothbrush (04/02/25 1100) Progress: (P) improving (04/02/25 1238) HVAC R TECH EVALUATION (Last 72 Hours) HVAC R TECH SLC Evaluation Row Name 04/02/251099 Communication Assessment/Intervention [...] aphonia;breathy;moderate impairment (P) -LS Cognitive Assessment Intervention- HVAC R TECH Cognitive Function (Cognition) WFL (P) -LS Orientation Status (Cognition) person;place;situation;WFL (P) -LS HVAC R TECH Evaluation Clinical Impressions HVAC R TECH Diagnosis mild-moderate;cognitive-linguistic disorder;dysarthria (P) -LS Rehab Potential/Prognosis good (P) -LS SLC Criteria for Skilled Therapy Interventions Met yes (P) -LS Functional Impact functional impact in social situations;functional impact in ADLs;difficulty communicating in an emergency;difficulty in expressing complex messages;restrictions in personal and social life (P) -LS Recommendations Therapy Frequency (HVAC R TECH SLC) 5 days per week (P) -LS Predicted Duration Therapy Intervention (Days) 2 weeks (P) -LS User Lockwood (r) = Recorded By, (t) = Taken By, (c) = Cosigned By Initials Name Effective Dates Yumi Oleary, Speech Therapy Student 01/29/25 - EDUCATION The patient has been educated in the following areas: Cognitive Impairment Communication Impairment. HVAC R TECH GOALS Row Name 04/02/25 1100 Patient will demonstrate functional communication skills for return to discharge environment Bee Independently (P) -LS Time frame 2 weeks (P) -LS HVAC R TECH Diagnostic Treatment Patient will participate in further assessment in the following areas motor speech;higher-level cognitive-linguistic;clarification of baseline cognitive communication status (P) -LS Time Frame (Diagnostic) 1 week (P) -LS Progress/Outcomes (Additional Goal 1, HVAC R TECH) new goal (P) -LS User Lockwood (r) = Recorded By, (t) = Taken By, (c) = Cosigned By Initials Name Provider Type LS Yumi Singh, Speech Therapy Student HVAC R TECH Student Time Calculation: Time Calculation- HVAC R TECH Row Name 04/02/25 1241 Time Calculation- HVAC R TECH HVAC R TECH Start Time 1100 (P) -LS HVAC R TECH Received On 04/02/25 (P) -LS Untimed Charges [id number] Eval Speech and Production w/ Language Minutes 20 (P) -LS 56225-ON Eval Oral Pharyng Swallow Minutes 40 (P) -LS Total Minutes Untimed Charges Total Minutes 60 (P) -LS Total Minutes 60 (P) -LS User Lockwood (r) = Recorded By, (t) = Taken By, (c) = Cosigned By Initials Name Provider Type LS Yumi Singh, Speech Therapy Student HVAC R TECH Student Therapy Charges for Today Code Description Service Date Service Provider Modifiers Qty [id number] HC ST EVAL SPEECH AND PROD W LANG 2 04/02/2025 Yumi Singh Speech Therapy Student GN [phone] EVAL ORAL PHARYNG SWALLOW 3 04/02/2025 Yumi Singh Speech Therapy Student GN 1 Yumi Mccain Speech Therapy Student 04/02/2025 Cosigned by Denice Alva MS CCC-HVAC R TECH at 04/02/2025 1:08 PM EDT Associated attestation - Denice Alva MS CCC-HVAC R TECH - 04/02/2025 1:08 PM EDT Denice Alva, MS CCC-HVAC R TECH * Therapy Evaluation - Wendi Boswell, PT [...] on file. General Information Row Name 04/02/25 131 Physical Therapy Time and Intention Document Type [...] Bed Mobility Bed Mobility supine-sit -KE Supine-Sit Bee (Bed Mobility) moderate assist (50% patient effort);2 person assist;verbal cues -KE Assistive Device (Bed Mobility) bed rails;head of bed elevated;repositioning sheet -KE Comment, (Bed Mobility) VC/TCs for sequencing -KE Row Name 04/02/25 131 Bed-Chair Transfer Bed-Chair Bee (Transfers) maximum assist (25% patient effort);2 person assist;verbal cues -KE Assistive Device (Bed-Chair Transfers) other (see comments) B UE support -KE Comment, (Bed-Chair Transfer) attempted initial t/f w/ FWW, pt unable to sequence req return to sitand use of B UE support for stand pivot to chair -KE Row Name 04/02/25 1319 Sit-Stand Transfer Sit-Stand Bee (Transfers) moderate assist (50% patient effort);2 person [...] PT) sit to supine/supine to sit -KE Bee Level/Cues Needed (Bed Mobility Goal 1, PT) minimum assist (75% or more patient effort) -KE Time Frame (Bed Mobility Goal 1, PT) short term goal (STG);5 days -KE Progress/Outcomes (Bed Mobility Goal 1, PT) new goal - Row Name 04/02/25 132 Transfer Goal 1 (PT) Activity/Assistive Device (Transfer Goal 1, PT) zsf-ib-dbfqe/dnxdd-ey-mel;tfx-nf-sxwsq/fajju-zk-ggd-KE Bee Level/Cues Needed (Transfer Goal 1, PT) minimum assist (75% or more patient effort) -KE Time Frame (Transfer Goal 1, PT) long term care pharmacist goal (LTG);10 days -KE Progress/Outcome (Transfer Goal 1, PT) new goal - Row Name 04/02/25 1323 Gait Training Goal 1 (PT) Activity/Assistive Device (Gait Training Goal 1, PT) gait (walking locomotion);assistive device use;improve balance and speed;walker, rolling -KE Bee Level (Gait Training Goal 1, PT) minimum assist (75% or more patient effort) -KE Distance (Gait Training Goal 1, PT) 50 -KE Time Frame (Gait Training Goal 1, PT) usp goal (LTG);10 days -KE Progress/Outcome (Gait Training [...] Options AM-PAC 6 Clicks Basic Mobility (PT) -KE User Lockwood (r) = Recorded By, (t) = Taken By, (c) = Cosigned By Initials Name Provider Type Wendi Flowers PT Physical Therapist Physical Therapy Education Title: PT OT HVAC R TECH Therapies (In Progress) Topic: Physical Therapy (In [...] Lockwood Initials Effective Dates Name Provider Type [facility] 04/28/23 - Wendi Boswell PT Physical Therapist [...] Description Service Date Service Provider Modifiers Qty [id number] HC PT EVAL MOD COMPLEXITY 4 04/02/2025 Wendi Boswell, PT GP 1 PT G-Codes Outcome Measure Options: AM-PAC 6 Clicks Basic Mobility (PT) AM-PAC 6 Clicks Score (PT): 12 PT Discharge Summary Anticipated Discharge Disposition (PT): [facility] facility Wendi Boswell PT 04/02/2025 * Therapy [...] Bed Mobility Bed Mobility supine-sit - Supine-Sit Bee (Bed Mobility) moderate assist (50% patient effort);2 person assist;verbal cues - Assistive Device (Bed Mobility) bed rails;head of bed elevated;repositioning sheet - Row Name 04/02/25 131 Transfers Transfers sit-stand transfer;stand-sit transfer;bed-chair transfer - Row Name 04/02/25 131 Bed-Chair Transfer Bed-Chair Bee (Transfers) maximum assist (25% patient effort);2 person assist;verbal cues - Assistive Device (Bed-Chair Transfers) other (see comments) BUE support - Comment, (Bed-Chair Transfer) stand pivot transfer, VCs for sequencing. Required assist at hips - Row Name 04/02/251310 Sit-Stand Transfer Sit-Stand Bee (Transfers) moderate assist (50% patient effort);2 person assist;verbal cues- Assistive Device (Sit-Stand Transfers) other (see comments) BUE support - Comment, (Sit-Stand Transfer) Posterior lean in standing - Row Name 04/02/251310 Stand-Sit Transfer Stand-Sit Bee (Transfers) moderate assist (50% patient effort);2 person [...] Name 04/02/25 131 Lower Body Dressing Assessment/Training Bee Level (Lower Body Dressing) don;socks - Position (Lower Body Dressing) edge of bed sitting - User Lockwood (r) = Recorded By, (t) = Taken By, (c) = Cosigned By Initials Name Provider Type Shelly Jones OT Occupational Therapist Obj/Interventions Row Name 04/02/25 131 Sensory Assessment (Somatosensory) Sensory Assessment (Somatosensory) UE sensation intact - Sensory Assessment formal testing limited d/t difficulty with sequencing and following directions - Row Name 04/02/25 131 Vision Assessment/Intervention Visual Impairment/Limitations other (see comments);visual/perceptual [...] d/t vision impairment - Row Name 04/02/25 131 Balance Balance Assessment sitting static balance;sitting dynamic [...] Jones OT Occupational Therapist Goals/Plan Row Name 04/02/251328 Bed Mobility Goal 1 (OT) Activity/Assistive Device (Bed Mobility Goal 1, OT) sit to supine/supine to sit - Bee Level/Cues Needed (Bed Mobility Goal 1, OT) contact guard required - Time Frame (Bed Mobility Goal 1, OT) usp goal (LTG);10 days - Progress/Outcomes (Bed Mobility Goal 1, OT) new goal - Row Name 04/02/25 132 Transfer Goal 1 (OT) Activity/Assistive Device (Transfer Goal 1, OT) caz-on-sylud/ztqwv-cs-zuq;zwg-db-ijunc/grieh-jz-qfc- Bee Level/Cues Needed (Transfer Goal 1, OT) minimum assist (75% or more patient effort) - Time Frame (Transfer Goal 1, OT) short term goal (STG);5 days - Progress/Outcome (Transfer Goal 1, OT) new goal - Row Name 04/02/25 1329 Grooming Goal 1 (OT) Activity/Device (Grooming Goal 1, OT) hair care;oral care;wash face, hands - Bee (Grooming Goal 1, OT) minimum assist (75% or more patient effort) - Time Frame (Grooming Goal 1, OT) usp goal (LTG);10 days - Progress/Outcome (Grooming Goal 1, OT) new goal - Row Name 04/02/25 132 Therapy Assessment/Plan (OT) Planned Therapy Interventions (OT) activity tolerance training;BADL retraining;functional balance retraining;occupation/activity based interventions;patient/caregiver education/training;ROM/therapeutic exercise;strengthening exercise;transfer/mobility retraining;adaptive equipment training - User Lockwood (r) = Recorded By, (t) = Taken By, (c) = Cosigned By Initials Name Provider Type Shelly Jones OT Occupational Therapist Clinical Impression Row Name 04/02/25 1320 Pain Scale: FACES Pre/Post-Treatment Pain: FACES Scale, Pretreatment 2-->hurts little bit - Posttreatment Pain Rating 2-->hurts little bit - Row Name 04/02/25 1322 Plan of Care Review Outcome Evaluation OT eval complete. Pt presents with deficits including generalized weakness, decreased functional mobility, decreased activity tolerance, and decreased balance warranting IPOT services. Stand pivot transfer with max A x2, completed sit to stand with mod A x2. Rec d/c to SNF. - Row Name 04/02/25 1322 Therapy Assessment/Plan (OT) Patient/Family Therapy Goal Statement (OT) Return home - Rehab Potential (OT) fair - Criteria for Skilled Therapeutic Interventions Met (OT) skilled treatment is necessary;yes -CH Therapy Frequency (OT) daily - Predicted Duration of Therapy Intervention (OT) 10 days - Row Name 04/02/25 1320 Therapy Plan Review/Discharge Plan (OT) Anticipated Discharge Disposition (OT) [facility] facility - Row Name 04/02/25 1326 Vital Signs Pre Systolic BP Rehab 110 [...] -CH AM-PAC 6 Clicks Score (OT) 10 -CH Row Name 04/02/25 1324 How much help [...] (OT) -CH AM-PAC 6 Clicks Basic Mobility (PT)-KE User Lockwood (r) = Recorded By, (t) = Taken By, (c) = Cosigned By Initials Name Provider Type Wendi Flowers, PT Physical Therapist Shelly Vital OT Occupational Therapist Occupational Therapy Education Title: PT OT HVAC R TECH Therapies (In Progress) Topic: Occupational Therapy (In Progress) Point: ADL training (In Progress) Learning Progress Summary Patient Acceptance, E,TB, NR by at 04/02/2025 1050 Point: Precautions (In Progress) Learning Progress Summary Patient Acceptance, E,TB, NR by at 04/02/2025 1050 Point: Body mechanics (In Progress) Learning Progress Summary Patient Acceptance, E,TB, NR by at 04/02/2025 1050 User Lockwood Initials Effective Dates Name Provider Type [facility] 03/18/25 - Shelly Jones OT Occupational Therapist [...] Description Service Date Service Provider Modifiers Qty [id number] HC OT EVAL MOD COMPLEXITY 4 04/02/2025 Shelly Jones OT GO 1 Shelly Jones OT 04/02/2025 * Therapy Evaluation - Av Varghese MS CCC-HVAC R TECH - 04/01/2025 4:13 PM EDT Images from the original note were not included. Acute Care - Speech Language Pathology Swallow Initial Evaluation [facility] Clinical Swallow Evaluation Patient Name: Regine Anguiano : 1955 Today's Date: 04/01/2025 Admit Date: 03/31/2025 Visit Dx: ICD-10-CM ICD-9-CM 1. Dysphagia, unspecified type R13.10 787.20 Problem List[1] No past medical history on file. No past surgical history on file. HVAC R TECH Recommendation and Plan Recommended discharge disposition is based on the functional assessment performed by PT/OT/Speech therapy (as applicable) and may not reflect the medical necessity determined by your provider or services covered by an individual patient's insurance plan or patient resource. HVAC R TECH Swallowing Diagnosis: oral dysphagia, R/O pharyngeal dysphagia (04/01/251544) HVAC R TECH Diet Recommendation: NPO (04/01/251544) Recommended Precautions and Strategies: upright posture during/after eating, general aspiration precautions (04/01/251544) HVAC R TECH Rec. for Method of Medication Administration: meds whole, with puree (essential meds only) (04/01/251544) Monitor for Signs of Aspiration: yes, notify HVAC R TECH if any concerns (04/01/251544) Recommended Diagnostics: reassess via clinical swallow evaluation (04/01/251544) Swallow Criteria for Skilled Therapeutic Interventions Met: demonstrates skilled criteria (545) Anticipated Discharge Disposition (HVAC R TECH): [facility]ci facility (04/01/251544) Rehab Potential/Prognosis, Swallowing: adequate, monitor progress closely (04/01/251544) Oral Care Recommendations: Oral Care BID/PRN, Suction toothbrush (04/01/251544) Demonstrates Need for Referral to Another Service: speech therapy, other (see comments) (Pt would benefit from full SLC eval) (04/01/251544) Progress: no change SWALLOW EVALUATION (Last 72 Hours) HVAC R TECH Adult Swallow Evaluation Row Name 04/01/251544 Rehab [...] activity and intubated. She was transferred to [facility] for higher level of care. SDH [...] of Function-Swallowing unknown;other (see comments) no previous HVAC R TECH hx, pt u/a to indicate -RS Plans/Goals [...] nasal cannula -RS Eating/Swallowing Skills fed by HVAC R TECH;unable to perform self-feeding -RS Positioning During Eating [...] Pt may have essential meds in puree, HVAC R TECH will re-assess and determine need for instrumental prior to PO diet -RS Swallowing Quality of Life Assessment Education and counseling provided Signs of aspiration;Silent aspiration -RS HVAC R TECH Evaluation Clinical Impression HVAC R TECH Swallowing Diagnosis oral dysphagia;R/O pharyngeal dysphagia -RS Functional Impact risk of aspiration/pneumonia -RS Rehab Potential/Prognosis, Swallowing adequate, monitor progress closely -RS Swallow Criteria for Skilled Therapeutic Interventions Met demonstrates skilled criteria -RS Recommendations HVAC R TECH Diet Recommendation NPO -RS Recommended Diagnostics reassess via clinical swallow evaluation -RS Recommended Precautions and Strategies upright posture during/after eating;general aspiration precautions -RS Oral Care Recommendations Oral Care BID/PRN;Suction toothbrush -RS HVAC R TECH Rec. for Method of Medication Administration meds whole;with puree essential meds only -RS Monitor for Signs of Aspiration yes;notify HVAC R TECH if any concerns -RS Anticipated Discharge Disposition (HVAC R TECH) [facility]ci facility -RS Demonstrates Need for Referral to Another Service speech therapy;other (see comments) Pt would benefit from full SLC eval -RS User Lockwood (r) = Recorded By, (t) = Taken By, (c) = Cosigned By Initials Name Effective Dates RS Av Varghese MS [facility]-HVAC R TECH 02/24/23 - EDUCATION The patient has been educated in the following areas: Dysphagia (Swallowing Impairment) Oral Care/Hydration NPO rationale. Time Calculation: Time Calculation- HVAC R TECH Row Name 04/01/25 8806 Time Calculation- HVAC R TECH HVAC R TECH Start Time 1545 -RS HVAC R TECH Received On 04/01/25 -RS Untimed Charges 95894-WE Eval Oral Pharyng Swallow Minutes 40 -RS Total Minutes Untimed Charges Total Minutes 40 -RS Total Minutes 40 -RS User Lockwood (r) = Recorded By, (t) = Taken By, (c) = Cosigned By Initials Name Provider Type RS Av Varghese MS CCC-HVAC R TECH Speech and Language Pathologist Therapy Charges for Today Code Description Service Date Service Provider Modifiers Qty [id number] HC ST EVAL ORAL PHARYNG SWALLOW 3 [...] note were not included. Discharge Planning Assessment [facility] Patient Name: Regine Anguiano Today's Date: 04/01/2025 Admit Date: 03/31/2025 Plan: Home Discharge Needs Assessment Row Name 04/01/25 1501 Living Environment People in Home spouse Name(s) of People in Home - Kwasi Anguiano Current Living Arrangements home Potentially Unsafe Housing Conditions none In the past 12 months has the [employer] gas, oil, or water [employer] threatened to shut off services in your [...] be determined Discharge Coordination/Progress Pt lives [facility] with her spouse. Pt doesn't have [...] at discharge. Discharge Plan Row Name 04/01/25 0564 Plan Plan Home Patient/Family in Agreement with [...] coordination exists. Demographic Summary Row Name 04/01/25 0357 General Information Admission Type inpatient Arrived From home Preferred Language Tongan General Information Comments No PCP. Pt hasn't [...] He stated their preferred home pharmacy is [facility] in [place]. Psychosocial No documentation. Abuse/Neglect No documentation. Legal No documentation. Substance Abuse No documentation. Patient Forms No documentation. RICHARD Argueta * Case Management/Social Work - Yeimi Padron MSW - 04/01/2025 11:14 AM EDT Continued Stay Note [facility] Patient Name: Regine Anguiano Today's Date: 04/01/2025 Admit Date: 03/31/2025 Plan: IDP pending Discharge Plan Row Name 04/01/25 1106 Plan Plan IDP pending Patient/Family in Agreement with Plan unable to assess Plan Comments VENTURA attempted to contact pt's sposue this morning as pt in intubated. VENTURA attempted to call pt's spouse twice this morning without success. VENTURA left a message requesting call back. Per chart review, pt lives in [facility] with her spouse, Kwasi Anguiano. VENTURA and CM will remain available to assist with discharge planning needs. Discharge Codes No documentation. RICHARD Argueta documented in this encounter Plan of Treatment Upcoming Encounters Date Type Department Care Team (Late st Contact Info) Description 09/19/2025 2:30 PM EDT Office Visit [facility] [address] [facility] [address] [place] [address] Radha Morales, CARD READER [address] [facility] [address] [place] [address] documented as of this encounter Procedures Procedure Name Priority Date/Time Associated Diagnosis Comments POCT GLUCOSE FINGERSTICK Routine 04/08/2025 4:27 PM EDT POCT GLUCOSE FINGERSTICK Routine 04/08/2025 8:21 AM EDT POCT GLUCOSE FINGERSTICK Routine 04/07/2025 4:52 PM EDT HVAC R TECH FEES FIBEROPTIC ENDO EVAL SWALLOW Routine 04/07/2025 [...] EDT AMMONIA STAT 04/03/2025 10:36 AM EDT HVAC R TECH FEES FIBEROPTIC ENDO EVAL SWALLOW Routine 04/03/2025 [...] POC Glucose Once (04/08/2025 4:27 PM EDT) [facility] Signature Glucose 105 70 - 130 mg/dL 04/08/2025 4:31 PM EDT [facility] Comment:Serial Number: [id number]: [id number] Blood 04/08/2025 4:27 PM EDT 04/08/2025 4:31 PM EDT us Jagruti Goins MD POINT OF CARE TEST ORDERABLES Final Result Performing Organization Address City/[facility]/ZIP Co de Phone Number [facility]
[address] [place] [address], [place] [phone] * POC Glucose Once (04/08/2025 8:21 AM EDT) Glucose 90 70 - 130 mg/dL 04/08/2025 8:24 AM EDT [facility] Comment:Serial Number: [id number]: [id number] Blood 04/08/2025 8:21 AM EDT 04/08/2025 8:24 AM EDT us Jagruti Goins MD POINT OF CARE TEST ORDERABLES Final Result Performing Organization Address [facility] Co de Phone Number [facility]
[address] [place] [address], [place] [phone] * POC Glucose Once (04/07/2025 4:52 PM EDT) Glucose 96 70 - 130 mg/dL 04/07/2025 4:54 PM EDT [facility] Comment:Serial Number: [id number]: [id number] Blood 04/07/2025 4:52 PM EDT 04/07/2025 4:54 PM EDT us Jagruti Goins MD POINT OF CARE TEST ORDERABLES Final Result Performing Organization Address [facility] Co de Phone Number [facility]
[address] [place] [address], * HVAC R TECH FEES - Fiberoptic Endo Eval Swallow (04/07/2025 11:54 AM EDT) Narrative SYSTEMGENERATED, DOCUMENTATION - 04/07/2025 11:54 AM EDT This procedure was auto-finalized with no dictation required. us Jagruti Goins MD HVAC R TECH ORDERABLES Final Result * POC Glucose Once (04/07/2025 11:33 AM EDT) Glucose 104 70 - 130 mg/dL 04/07/2025 11:37 AM EDT [facility] Comment:Serial Number: [id number]: [id number] Blood 04/07/2025 11:3 3 AM EDT 04/07/2025 11:37 AM EDT us Jagruti Goins MD POINT OF CARE TEST ORDERABLES Final Result Performing Organization Address [facility] Co de Phone Number [facility]
[address] [place] [address], * POC Glucose Once (04/07/2025 7:44 AM EDT) Glucose 88 70 - 130 mg/dL 04/07/2025 7:48 AM EDT [facility] Comment:Serial Number: [id number]: [id number] Blood 04/07/2025 7:44 AM EDT 04/07/2025 7:48 AM EDT us Jagruti Goins MD POINT OF CARE TEST ORDERABLES Final Result Performing Organization Address City/[facility] Co de Phone Number [facility]
[address] [place] [address], * Telemetry Scan (04/07/2025 4:38 AM EDT) [place] [facility] Onbase ECG ORDERABLES Final Result * POC Glucose Once (04/06/2025 7:47 PM EDT) Glucose 117 70 - 130 mg/dL 04/06/2025 7:49 PM EDT [facility] Comment:Serial Number: [id number]: [id number] Blood 04/06/2025 7:47 PM EDT 04/06/2025 7:49 PM EDT us Jagruti Goins MD POINT OF CARE TEST ORDERABLES Final Result Performing Organization Address [facility] Co de Phone Number [facility]
[address] [place] [address], [place] [phone] * Potassium (04/06/2025 7:13 PM EDT) Potassium 4.1 3.5 - 5.2 mmol/L 04/06/2025 7:58 PM EDT [facility] Blood Venipuncture / Unknown 04/06/2025 7:13 PM EDT 04/06/2025 7:37 PM EDT us Jagruti Goins MD LAB BLOOD ORDERABLES Final Re sult Performing Organization Address [facility] Co de Phone Number [facility]
[address] [place] [address], * (ABNORMAL) POC Glucose Once (04/06/2025 4:01 PM EDT) Glucose 132(H) 70 - 130 mg/dL 04/06/2025 4:03 PM EDT [facility] Comment:Serial Number: [id number]: [id number] Blood 04/06/2025 4:0 1 PM EDT 04/06/2025 4:03 PM EDT us Jagruti Goins MD POINT OF CARE TEST ORDERABLES Final Result Performing Organization Address [facility] Co de Phone Number [facility]
[address] [place] [address], * XR Shoulder 2+ View Right (04/06/2025 [...] MD 04/06/2025 12:46 PM EDT Workstation ID: [id number] Narrative 04/06/2025 12:46 PM EDT XR SHOULDER [...] MD 04/06/2025 12:46 PM EDT Workstation ID: [id number] Jagruti Goins MD IMG DIAGNOSTIC IMAGING ORDERA BLES Final Result * POC Glucose Once (04/06/2025 11:52 AM EDT) Pathologist [facility] Glucose 115 70 - 130 mg/dL 04/06/2025 11:55 AM EDT [facility] Comment:Serial Number: [id number]: [id number] Blood 04/06/2025 11:5 2 AM EDT 04/06/2025 11:55 AM EDT Jagruti Goins MD POINT OF CARE TEST ORDERABLES Final Result [facility]
[address] [place] [address], * (ABNORMAL) CBC Auto Differential (04/06/2025 9:07 AM EDT) [facility] WBC 2.94(L) 3.40 - 10.80 10*3/mm3 04/06/2025 9:23 AM EDT [facility] RBC 3.47(L) 3.77 - 5.28 10*6/mm3 04/06/2025 9:23 AM EDT [facility] Hemoglobin 10.4(L) 12.0 - 15.9 g/dL 04/06/2025 9:23 AM EDT [facility] Hematocrit 31.4(L) 34.0 - 46.6 % 04/06/2025 9:23 AM EDT [facility] MCV 90.5 79.0 - 97.0 fL 04/06/2025 9:23 AM EDT [facility] MCH 30.0 26.6 - 33.0 pg 04/06/2025 9:23 AM EDT [facility] MCHC 33.1 31.5 - 35.7 g/dL 04/06/2025 9:23 AM EDT [facility] RDW 17.1(H) 12.3 - 15.4 % 04/06/2025 9:23 AM [facility] RDW-SD 56.0(H) 37.0 - 54.0 fl 04/06/2025 9:23 AM [facility] MPV 9.0 6.0 - 12.0 fL 04/06/2025 9:23 AM [facility] Platelets 129(L) 140 - 450 10*3/mm3 04/06/2025 9:23 AM [facility] Neutrophil % 46.4 42.7 - 76.0 % 04/06/2025 9:23 AM [facility] Lymphocyte % 38.4 19.6 - 45.3 % 04/06/2025 9:23 AM [facility] Monocyte % 12.2(H) 5.0 - 12.0 % 04/06/2025 9:23 AM [facility] Eosinophil % 2.0 0.3 - 6.2 % 04/06/2025 9:23 AM [facility] Basophil % 0.7 0.0 - 1.5 % 04/06/2025 9:23 AM [facility] Immature Grans % 0.3 0.0 - 0.5 % 04/06/2025 9:23 AM [facility] Neutrophils, Absolute 1.36(L) 1.70 - 7.00 10*3/mm3 04/06/2025 9:23 AM [facility] Lymphocytes, Absolute 1.13 0.70 - 3.10 10*3/mm3 04/06/2025 9:23 AM [facility] Monocytes, Absolute 0.36 0.10 - 0.90 10*3/mm3 04/06/2025 9:23 AM [facility] Eosinophils, Absolute 0.06 0.00 - 0.40 10*3/mm3 04/06/2025 9:23 AM [facility] Basophils, Absolute 0.02 0.00 - 0.20 10*3/mm3 04/06/2025 9:23 AM EDT [facility] Immature Grans, Absolute 0.01 0.00 - 0.05 10*3/mm3 04/06/2025 9:23 AM EDT [facility] nRBC 0.0 0.0 - 0.2 /100 WBC 04/06/2025 9:23 AM EDT [facility] Blood Venipuncture / Unknown 04/06/2025 9:07 AM EDT 04/06/2025 9:16 AM EDT us Susan Alvarado MD LAB BLOOD ORDERABLES Final Resul t [facility]
[address] [place] [address], * (ABNORMAL) Comprehensive Metabolic Panel (04/06/2025 9:07 AM EDT) Glucose 116(H) 65 - 99 mg/dL 04/06/2025 9:35 AM EDT [facility] BUN 7.6(L) 8.0 - 23.0 mg/dL 04/06/2025 9:35 AM EDT [facility] Creatinine 0.73 0.57 - 1.00 mg/dL 04/06/2025 9:35 AM EDT [facility] Sodium 139 136 - 145 mmol/L 04/06/2025 9:35 AM EDT [facility] Potassium 3.2(L) 3.5 - 5.2 mmol/L 04/06/2025 9:35 AM EDT [facility] Chloride 105 98 - 107 mmol/L 04/06/2025 9:35 AM EDT [facility] CO2 23.2 22.0 - 29.0 mmol/L 04/06/2025 9:35 AM EDT [facility] Calcium 9.3 8.6 - 10.5 mg/dL 04/06/2025 9:35 AM EDT [facility] Total Protein 6.8 6.0 - 8.5 g/dL 04/06/2025 9:35 AM [facility] Albumin 3.5 3.5 - 5.2 g/dL 04/06/2025 9:35 AM [facility] ALT (SGPT) 6 1 - 33 U/L 04/06/2025 9:35 AM [facility] AST (SGOT) 20 1 - 32 U/L 04/06/2025 9:35 AM [facility] Alkaline Phosphatase 145(H) 39 - 117 U/L 04/06/2025 9:35 AM [facility] Total Bilirubin 0.7 0.0 - 1.2 mg/dL 04/06/2025 9:35 AM [facility] Globulin 3.3 gm/dL 04/06/2025 9:35 AM [facility] Comment:Calculated Result A/G Ratio 1.1 g/dL 04/06/2025 9:35 AM [facility] BUN/Creatinine Ratio 10.4 7.0 - 25.0 04/06/2025 9:35 AM [facility] Anion Gap 10.8 5.0 - 15.0 mmol/L 04/06/2025 9:35 AM [facility] eGFR 89.7 >60.0 mL/min/1.7 3 04/06/2025 9:35 AM [facility] Blood Venipuncture / Unknown 04/06/2025 9:07 AM EDT 04/06/2025 9:15 AM T [facility] - 04/06/2025 9:35 AM EDT GFR [...] not include race as a factor us Susan Alvarado MD LAB BLOOD ORDERABLES Final Resul t Performing Organization Address [facility] Co de Phone Number [facility]
[address] [place] [address], * POC Glucose Once (04/06/2025 7:32 AM EDT) Glucose 91 70 - 130 mg/dL 04/06/2025 7:34 AM EDT [facility] Comment:Serial Number: [id number]: [id number] Blood 04/06/2025 7:32 AM EDT 04/06/2025 7:34 AM EDT us Jagruti Goins MD POINT OF CARE TEST ORDERABLES Final Result Performing Organization Address [facility] Co de Phone Number [facility]
[address] [place] [address], * POC Glucose Once (04/06/2025 6:41 AM EDT) Glucose 128 70 - 130 mg/dL 04/06/2025 6:44 AM EDT [facility] Comment:Serial Number: [id number]: [id number] Blood 04/06/2025 6:41 AM EDT 04/06/2025 6:44 AM EDT us Jagruti Goins MD POINT OF CARE TEST ORDERABLES Final Result Performing Organization Address [facility] Co de Phone Number [facility]
[address] [place] [address], * Telemetry Scan (04/06/2025 1:45 AM EDT) [facility] Onbase ECG ORDERABLES Final Result * POC Glucose Once (04/06/2025 12:04 AM EDT) Glucose 129 70 - 130 mg/dL 04/06/2025 12:07 AM EDT [facility] Comment:Serial Number: [id number]: [id number] Blood 04/06/2025 12:0 4 AM EDT 04/06/2025 12:07 AM EDT Susan Alvarado MD POINT OF CARE TEST ORDERABLES Fi nal Result Performing Organization Address City/[facility]/ZIP Co de Phone Number [facility]
[address] [place] [address], * POC Glucose Once (04/05/2025 7:39 PM EDT) Glucose 105 70 - 130 mg/dL 04/05/2025 7:41 PM EDT [facility] Comment:Serial Number: [id number]: [id number] Blood 04/05/2025 7:39 PM EDT 04/05/2025 7:41 PM EDT Susan Alvarado MD POINT OF CARE TEST ORDERABLES Fi nal Result Performing Organization Address City/[facility]/ZIP Co de Phone Number [facility]
[address] [place] [address], * (ABNORMAL) POC Glucose Once (04/05/2025 5:00 PM EDT) Glucose 155(H) 70 - 130 mg/dL 04/05/2025 5:03 PM EDT [facility] Comment:Serial Number: [id number]: [id number] Blood 04/05/2025 5:00 PM EDT 04/05/2025 5:03 PM EDT Susan Alvarado MD POINT OF CARE TEST ORDERABLES Fi nal Result Performing Organization Address City/[facility] Co de Phone Number [facility]
[address] [place] [address], * POC Glucose Once (04/05/2025 11:11 AM EDT) Glucose 111 70 - 130 mg/dL 04/05/2025 11:14 AM EDT [facility] Comment:Serial Number: [id number]: [id number] Blood 04/05/2025 11:1 1 AM EDT 04/05/2025 11:14 AM EDT Susan Alvarado MD POINT OF CARE TEST ORDERABLES Fi nal Result Performing Organization Address [facility] de Phone Number [facility]
[address] [place] [address], * POC Glucose Once (04/05/2025 7:48 AM EDT) Glucose 88 70 - 130 mg/dL 04/05/2025 7:58 AM EDT [facility] Comment:Serial Number: [id number]: [id number] Blood 04/05/2025 7:48 AM EDT 04/05/2025 7:58 AM EDT Susan Alvarado MD POINT OF CARE TEST ORDERABLES Fi nal Result Performing Organization Address City/[facility] Co de Phone Number [facility]
[address] [place] [address], * POC Glucose Once (04/05/2025 5:54 AM EDT) Glucose 101 70 - 130 mg/dL 04/05/2025 5:56 AM EDT [facility] Comment:Serial Number: [id number]: [id number] Blood 04/05/2025 5:54 AM EDT 04/05/2025 5:56 AM EDT us Ssuan Alvarado MD POINT OF CARE TEST ORDERABLES Fi nal Result Performing Organization Address [facility]/ZIP Co de Phone Number [facility]
[address] [place] [address], * Telemetry Scan (04/04/2025 9:09 PM EDT) [facility] [facility] ECG ORDERABLES Final Result * POC Glucose Once (04/04/2025 8:27 PM EDT) Glucose 88 70 - 130 mg/dL 04/04/2025 8:30 PM EDT [facility] Comment:Serial Number: [id number]: [id number] Blood 04/04/2025 8:27 PM EDT 04/04/2025 8:30 PM EDT us Pk Mckeon MD POINT OF CARE TEST ORDERABLE S Final Result Performing Organization Address [facility] Co de Phone Number [facility]
[address] [place] [address], * POC Glucose Once (04/04/2025 4:54 PM EDT) Glucose 130 70 - 130 mg/dL 04/04/2025 4:57 PM EDT [facility] Comment:Serial Number: [id number]: [id number] Blood 04/04/2025 4:54 PM EDT 04/04/2025 4:57 PM EDT us Pk Mckeon MD POINT OF CARE TEST ORDERABLE S Final Result [facility]
[address] [place] [address], * POC Glucose Once (04/04/2025 11:25 AM EDT) Glucose 104 70 - 130 mg/dL 04/04/2025 11:36 AM EDT [facility] Comment:Serial Number: [id number]: [id number] Blood 04/04/2025 11:2 5 AM EDT 04/04/2025 11:36 AM EDT us Pk Mckeon MD POINT OF CARE TEST ORDERABLE S Final Result Performing Organization Address City/[facility] Co de Phone Number [facility]
[address] [place] [address], * POC Glucose Once (04/04/2025 8:31 AM EDT) Glucose 107 70 - 130 mg/dL 04/04/2025 8:33 AM EDT [facility] Comment:Serial Number: [id number]: [id number] Blood 04/04/2025 8:31 AM EDT 04/04/2025 8:33 AM EDT us Pk Mckeon MD POINT OF CARE TEST ORDERABLE S Final Result Performing Organization Address City/[facility] Co de Phone Number [facility]
[address] [place] [address], * Telemetry Scan (04/04/2025 8:11 AM EDT) [facility] Onbase ECG ORDERABLES Final Result * Telemetry Scan (04/04/2025 8:11 AM EDT) [facility] Onbase ECG ORDERABLES Final Result * POC Glucose Once (04/04/2025 5:25 AM EDT) Glucose 114 70 - 130 mg/dL 04/04/2025 5:27 AM EDT [facility] Comment:Serial Number: [id number]: [id number] Blood 04/04/2025 5:25 AM EDT 04/04/2025 5:27 AM EDT Pk Mckeon MD POINT OF CARE TEST ORDERABLE S Final Result [facility]
[address] [place] [address], * POC Glucose Once (04/04/2025 1:05 AM EDT) Glucose 109 70 - 130 mg/dL 04/04/2025 1:07 AM EDT [facility] Comment:Serial Number: [id number]: [id number] Blood 04/04/2025 1:05 AM EDT 04/04/2025 1:07 AM EDT Pk Mckeon MD POINT OF CARE TEST ORDERABLE S Final Result [facility]
[address] [place] [address], * (ABNORMAL) POC Glucose Once (04/03/2025 8:04 PM EDT) Glucose 145(H) 70 - 130 mg/dL 04/03/2025 8:09 PM EDT [facility] Comment:Serial Number: [id number]: [id number] Blood 04/03/2025 8:04 PM EDT 04/03/2025 8:09 PM EDT us Pk Mckeon MD POINT OF CARE TEST ORDERABLE S Final Result Performing Organization Address [facility] Co de Phone Number [facility]
[address] [place] [address], * POC Glucose Once (04/03/2025 5:24 PM EDT) Glucose 123 70 - 130 mg/dL 04/03/2025 5:28 PM EDT [facility] Comment:Serial Number: [id number]: [id number] Blood 04/03/2025 5:24 PM EDT 04/03/2025 5:28 PM EDT us Pk Mckeon MD POINT OF CARE TEST ORDERABLE S Final Result Performing Organization Address [facility] de Phone Number [facility]
[address] [place] [address], * POC Glucose Once (04/03/2025 11:44 AM EDT) Glucose 118 70 - 130 mg/dL 04/03/2025 11:46 AM EDT [facility] Comment:Serial Number: [id number]: [id number] Blood 04/03/2025 11:4 4 AM EDT 04/03/2025 11:46 AM EDT us Pk Mckeon MD POINT OF CARE TEST ORDERABLE S Final Result Performing Organization Address [facility]/ZIP Co de Phone Number [facility]
[address] [place] [address], * Ammonia (04/03/2025 10:36 AM EDT) Ammonia 47 11 - 51 umol/L 04/03/2025 1:04 PM EDT [facility] Blood Venipuncture / Unknown 04/03/2025 10:36 AM EDT 04/03/2025 10:53 AM EDT Dmitry Nicolas MD LAB BLOOD ORDERABLES Final Result Performing Organization Address City/[facility]/ZIP Co de Phone Number [facility]
[address] [place] [address], * HVAC R TECH FEES - Fiberoptic Endo Eval Swallow (04/03/2025 8:23 AM EDT) Narrative SYSTEMGENERATED, DOCUMENTATION - 04/03/2025 8:23 AM EDT This procedure was auto-finalized with no dictation required. us Dmitry Nicolas MD HVAC R TECH ORDERABLES Final Resu lt * POC Glucose Once (04/03/2025 5:21 AM EDT) Glucose 100 70 - 130 mg/dL 04/03/2025 5:22 AM EDT [facility] Comment:Serial Number: [id number]: [id number] Blood 04/03/2025 5:21 AM EDT 04/03/2025 5:22 AM EDT Pk Mckeon MD POINT OF CARE TEST ORDERABLE S Final Result Performing Organization Address City/[facility]/ZIP Co de Phone Number [facility]
[address] [place] [address], * (ABNORMAL) CBC (No Diff) (04/03/2025 3:49 AM EDT) WBC 2.76(L) 3.40 - 10.80 10*3/mm3 04/03/2025 4:06 AM EDT [facility] RBC 2.96(L) 3.77 - 5.28 10*6/mm3 04/03/2025 4:06 AM EDT [facility] Hemoglobin 9.3(L) 12.0 - 15.9 g/dL 04/03/2025 4:06 AM EDT [facility] Hematocrit 28.6(L) 34.0 - 46.6 % 04/03/2025 4:06 AM EDT [facility] MCV 96.6 79.0 - 97.0 fL 04/03/2025 4:06 AM EDT [facility] MCH 31.4 26.6 - 33.0 pg 04/03/2025 4:06 AM EDT [facility] MCHC 32.5 31.5 - 35.7 g/dL 04/03/2025 4:06 AM EDT [facility] RDW 17.8(H) 12.3 - 15.4 % 04/03/2025 4:06 AM EDT [facility] RDW-SD 60.4(H) 37.0 - 54.0 fl 04/03/2025 4:06 AM EDT [facility] MPV 9.9 6.0 - 12.0 fL 04/03/2025 4:06 AM EDT [facility] Platelets 68(L) 140 - 450 10*3/mm3 04/03/2025 4:06 AM EDT [facility] Blood Line / Unknown 04/03/2025 3: 49 AM EDT 04/03/2025 4:01 AM EDT Alonso Cameron CARD READER LAB BLOOD ORDERABLES Nazanin l Result [facility]
[address] [place] [address], * (ABNORMAL) Basic Metabolic Panel (04/03/2025 3:49 AM EDT) Glucose 114(H) 65 - 99 mg/dL 04/03/2025 4:15 AM EDT [facility] BUN 7.6(L) 8.0 - 23.0 mg/dL 04/03/2025 4:15 AM EDT [facility] Creatinine 0.79 0.57 - 1.00 mg/dL 04/03/2025 4:15 AM EDT [facility] Sodium 138 136 - 145 mmol/L 04/03/2025 4:15 AM EDT [facility] Potassium 3.8 3.5 - 5.2 mmol/L 04/03/2025 4:15 AM EDT [facility] Chloride 106 98 - 107 mmol/L 04/03/2025 4:15 AM EDT [facility] CO2 22.7 22.0 - 29.0 mmol/L 04/03/2025 4:15 AM EDT [facility] Calcium 9.0 8.6 - 10.5 mg/dL 04/03/2025 4:15 AM EDT [facility] BUN/Creatinine Ratio 9.6 7.0 - 25.0 04/03/2025 4:15 AM EDT [facility] Anion Gap 9.3 5.0 - 15.0 mmol/L 04/03/2025 4:15 AM EDT [facility] eGFR 81.6 >60.0 mL/min/1.7 3 04/03/2025 4:15 AM T [facility] Blood Line / Unknown 04/03/2025 3: 49 AM EDT 04/03/2025 3:55 AM EDT [facility]ATORY - 04/03/2025 4:15 AM [...] race as a factor us Alonso Cameron APRN LAB BLOOD ORDERABLES Nazanin stiles Result [facility]
[address] [place] [address], * Phosphorus (04/03/2025 3:49 AM EDT) Phosphorus 3.2 2.5 - 4.5 mg/dL 04/03/2025 4:15 AM EDT [facility] Blood Line / Unknown 04/03/2025 3: 49 AM EDT 04/03/2025 3:55 AM EDT Alonso Cameron APRN LAB BLOOD ORDERABLES Nazanin l Result Performing Organization Address [facility] Co de Phone Number [facility]
[address] [place] [address], * Magnesium (04/03/2025 3:49 AM EDT) Magnesium 2.0 1.6 - 2.4 mg/dL 04/03/2025 4:15 AM EDT [facility] Blood Line / Unknown 04/03/2025 3: 49 AM EDT 04/03/2025 3:55 AM EDT Dmitry Nicolas MD LAB BLOOD ORDERABLES Final Result Performing Organization Address [facility] Co de Phone Number [facility]
[address] [place] [address], * POC Glucose Once (04/02/2025 11:38 PM EDT) Glucose 117 70 - 130 mg/dL 04/02/2025 11:40 PM EDT [facility] Comment:Serial Number: [id number]: [id number] Blood 04/02/2025 11:3 8 PM EDT 04/02/2025 11:40 PM EDT us Pk Mckeon MD POINT OF CARE TEST ORDERABLE S Final Result Performing Organization Address City/[facility]/ZIP Co de Phone Number [facility]
[address] [place] [address], * POC Glucose Once (04/02/2025 5:48 PM EDT) Glucose 104 70 - 130 mg/dL 04/02/2025 5:50 PM EDT [facility] Comment:Serial Number: [id number]: [id number] Blood 04/02/2025 5:48 PM EDT 04/02/2025 5:50 PM EDT us Pk Mckeon MD POINT OF CARE TEST ORDERABLE S Final Result Performing Organization Address [facility] Co de Phone Number [facility]
[address] [place] [address], * POC Glucose Once (04/02/2025 11:57 AM EDT) Glucose 96 70 - 130 mg/dL 04/02/2025 12:00 PM EDT [facility] Comment:Serial Number: [id number]: [id number] Blood 04/02/2025 11:5 7 AM EDT 04/02/2025 12:00 PM EDT us Pk Mckeon MD POINT OF CARE TEST ORDERABLE S Final Result Performing Organization Address City/[facility]/ZIP Co de Phone Number [facility]
[address] [place] [address], * Phosphorus (04/02/2025 8:10 AM EDT) Phosphorus 3.6 2.5 - 4.5 mg/dL 04/02/2025 10:09 AM EDT [facility] Blood Line / Unknown 04/02/2025 8: 10 AM EDT 04/02/2025 8:15 AM EDT Dmitry Nicolas MD LAB BLOOD ORDERABLES Final Result Performing Organization Address City/[facility]/ZIP Co de Phone Number [facility]
[address] [place] [address], * Magnesium (04/02/2025 8:10 AM EDT) Magnesium 1.7 1.6 - 2.4 mg/dL 04/02/2025 10:18 AM EDT [facility] Blood Line / Unknown 04/02/2025 8: 10 AM EDT 04/02/2025 8:15 AM EDT Dmitry Nicolas MD LAB BLOOD ORDERABLES Final Result Performing Organization Address City/[facility] de Phone Number [facility]
[address] [place] [address], * (ABNORMAL) Basic Metabolic Panel (04/02/2025 8:10 AM EDT) Glucose 103(H) 65 - 99 mg/dL 04/02/2025 8:42 AM EDT [facility] BUN 9.9 8.0 - 23.0 mg/dL 04/02/2025 8:42 AM EDT [facility] Creatinine 0.78 0.57 - 1.00 mg/dL 04/02/2025 8:42 AM EDT [facility] Sodium 140 136 - 145 mmol/L 04/02/2025 8:42 AM EDT [facility] Potassium 3.9 3.5 - 5.2 mmol/L 04/02/2025 8:42 AM EDT [facility] Chloride 110(H) 98 - 107 mmol/L 04/02/2025 8:42 AM EDT [facility] CO2 21.6(L) 22.0 - 29.0 mmol/L 04/02/2025 8:42 AM EDT [facility] Calcium 9.5 8.6 - 10.5 mg/dL 04/02/2025 8:42 AM EDT [facility] BUN/Creatinine Ratio 12.7 7.0 - 25.0 04/02/2025 8:42 AM EDT [facility] Anion Gap 8.4 5.0 - 15.0 mmol/L 04/02/2025 8:42 AM EDT [facility] eGFR 82.9 >60.0 mL/min/1.7 3 04/02/2025 8:42 AM EDT [facility] Blood Line / Unknown 04/02/2025 8: 10 AM EDT 04/02/2025 8:15 AM EDT [facility]ATORY - 04/02/2025 8:42 AM [...] Nicolas MD LAB BLOOD ORDERABLES Final Result [facility]
[address] [place] [address], * (ABNORMAL) CBC (No Diff) (04/02/2025 8:10 AM EDT) WBC 4.55 3.40 - 10.80 10*3/mm3 04/02/2025 8:40 AM EDT [facility] RBC 3.18(L) 3.77 - 5.28 10*6/mm3 04/02/2025 8:40 AM EDT [facility] Hemoglobin 9.8(L) 12.0 - 15.9 g/dL 04/02/2025 8:40 AM EDT [facility] Hematocrit 30.7(L) 34.0 - 46.6 % 04/02/2025 8:40 AM EDT [facility] MCV 96.5 79.0 - 97.0 fL 04/02/2025 8:40 AM EDT [facility] MCH 30.8 26.6 - 33.0 pg 04/02/2025 8:40 AM EDT [facility] MCHC 31.9 31.5 - 35.7 g/dL 04/02/2025 8:40 AM EDT [facility] RDW 17.8(H) 12.3 - 15.4 % 04/02/2025 8:40 AM EDT [facility] RDW-SD 59.6(H) 37.0 - 54.0 fl 04/02/2025 8:40 AM EDT [facility] MPV 9.5 6.0 - 12.0 fL 04/02/2025 8:40 AM EDT [facility] Platelets 60(L) 140 - 450 10*3/mm3 04/02/2025 8:40 AM EDT [facility] Blood Line / Unknown 04/02/2025 8: 10 AM EDT 04/02/2025 8:15 AM EDT Dmitry Nicolas MD LAB BLOOD ORDERABLES Final Result [facility]
[address] [place] [address], * POC Glucose Once (04/02/2025 5:23 AM EDT) Glucose 104 70 - 130 mg/dL 04/02/2025 5:25 AM EDT [facility] Comment:Serial Number: [id number]: [id number] Blood 04/02/2025 5:23 AM EDT 04/02/2025 5:25 AM EDT us Pk Mckeon MD POINT OF CARE TEST ORDERABLE S Final Result [facility]
[address] [place] [address], * POC Glucose Once (04/01/2025 11:20 PM EDT) Glucose 114 70 - 130 mg/dL 04/01/2025 11:22 PM EDT [facility] Comment:Serial Number: [id number]: [id number] Blood 04/01/2025 11:2 0 PM EDT 04/01/2025 11:22 PM EDT us Pk Mckeon MD POINT OF CARE TEST ORDERABLE S Final Result Performing Organization Address City/[facility]/ZIP Co de Phone Number [facility]
[address] [place] [address], * POC Glucose Once (04/01/2025 5:34 PM EDT) Glucose 120 70 - 130 mg/dL 04/01/2025 5:36 PM EDT [facility] Comment:Serial Number: [id number]: [id number] Blood 04/01/2025 5:34 PM EDT 04/01/2025 5:36 PM EDT us Pk Mckeon MD POINT OF CARE TEST ORDERABLE S Final Result [facility]
[address] [place] [address], * POC Glucose Once (04/01/2025 11:52 AM EDT) Glucose 128 70 - 130 mg/dL 04/01/2025 11:55 AM EDT [facility] Comment:Serial Number: [id number]: [id number] Blood 04/01/2025 11:5 2 AM EDT 04/01/2025 11:55 AM EDT us Pk Mckeon MD POINT OF CARE TEST ORDERABLE S Final Result [facility]
[address] [place] [address], * CT Head Without Contrast (04/01/2025 11:40 [...] MD 04/01/2025 11:48 AM EDT Workstation ID: [id number] Narrative 04/01/2025 11:[address] HEAD WO [...] MD 04/01/2025 11:48 AM EDT Workstation ID: [id number] us Lowell Do DO IMG CT ORDERABLES Final Result * (ABNORMAL) POC Glucose Q6H (04/01/2025 6:12 AM EDT) Glucose 136(H) 70 - 130 mg/dL 04/01/2025 6:18 AM EDT [facility] Comment:Serial Number: [id number]: [id number] Blood 04/01/2025 6:12 AM EDT 04/01/2025 6:18 AM EDT Narda Davila PA-C POINT OF CARE TEST ORDERABLES Fi nal Result [facility]
[address] [place] [address], * XR Chest 1 View (04/01/2025 5:04 AM EDT) Anatomical Region Laterality Modality Body N/A Radiographic Gerri ging 04/01/2025 7:52 AM EDT Impressions 04/01/2025 7:52 AM EDT Impression: 1.Increased left basilar atelectasis. 2.Mild discoid atelectasis in the right midlung. Electronically Signed: Adrián Puri MD 04/01/2025 7:52 AM EDT Workstation ID: [id number] Narrative 04/01/2025 7:52 AM EDT XR CHEST [...] MD 04/01/2025 7:52 AM EDT Workstation ID: [id number] Narda Davila PA-C IMG DIAGNOSTIC IMAGING ORDERABLE S Final Result * (ABNORMAL) Blood Gas, Arterial With Co-Ox (04/01/2025 3:40 AM EDT) Site Left Radial 04/01/2025 3:41 AM EDT [facility] THERAPY Henok's Test Positive 04/01/2025 3:41 AM EDT [facility] THERAPY pH, Arterial 7.416 7.350 - 7.450 pH units 04/01/2025 3:41 AM EDT [facility] THERAPY pCO2, Arterial 34.0(L) 35.0 - 45.0 mm Hg 04/01/2025 3:41 AM EDT [facility]ER[facility] Comment:84 Value below refer ence range pO2, Arterial 87.7 83.0 - 108.0 mm Hg 04/01/2025 3:41 AM EDT [facility] THERAPY HCO3, Arterial 21.9 20.0 - 26.0 mmol/L 04/01/2025 3:41 AM EDT [facility] THERAPY Base Excess, Arterial -2.2(L) 0.0 - 2.0 mmol/L 04/01/2025 3:41 AM EDT [facility] THER[facility] Hemoglobin, Blood Gas 10.2(L) 14 - 18 g/dL 04/01/2025 3:41 AM EDT [facility]ERAP[facility] Comment:84 Value below refer ence range Hematocrit, Blood Gas 31.2(L) 38.0 - 51.0 % 04/01/2025 3:41 AM EDT [facility] THER[facility] Oxyhemoglobin 95.1 94 - 99 % 04/01/2025 3:41 AM EDT [facility] THER[facility] Methemoglobin 0.40 0.00 - 1.50 % 04/01/2025 3:41 AM EDT [facility] THERAPY Carboxyhemoglobin 1.6 0 - 2 % 10/20/2 025 3:41 AM EDT [facility] THERAP[facility] CO2 Content 22.9 22 - 33 mmol/L 04/01/2025 3:41 AM EDT [facility] THER[facility] Temperature 37.0 04/01/2025 3:41 AM EDT [facility] THER[facility] Barometric Pressure for Blood Gas 04/01/2025 3:41 AM EDT [facility] THERAPY Comment:N/A Modality Ventilator 04/01/2025 3:41 AM EDT [facility] THERAPY FIO2 30 % 04/01/2025 3:41 AM EDT [facility] THERAPY Ventilator Mode VC+/AC 3:41 AM T [facility] THERAP[facility] Set Tidal Volume 0.42 04/01/20 3:41 AM EDT [facility] THER[facility] Rate 14 Breaths/ minute 04/01/2025 3:41 AM T [facility] THERAPY PEEP 5.0 04/01/2025 3:41 AM EDT [facility] PIP 0 cmH2O 04/01/2025 3:41 AM T [facility] Comment:Meter: [id number] Virtual Recruiter: [id number] IPAP 0 04/01/2025 3:41 AM EDT [facility] THER[facility]Y EPAP 0 04/01/2025 3:41 AM EDT [facility] THERAPY pH, Temp Corrected 7.416 pH Units 2024 3:41 AM EDT [facility] THERAPY pCO2, Temperature Corrected 34.0(L) 35 - 45 mm Hg 04/01/2025 3:41 AM EDT [facility] THER[facility] pO2, Temperature Corrected 87.7 83 - 108 mm Hg 04/01/2025 3:41 AM T [facility] THERAPY Arterial Blood 04/01/2025 3: 40 AM EDT 04/01/2025 3:40 AM EDT us Pk Mckeon MD LAB BLOOD ORDERABLES Final R esult [facility]
[address] [place] [address], [place] * Phosphorus (04/01/2025 1:02 AM EDT) Phosphorus 3.3 2.5 - 4.5 mg/dL 04/01/2025 1:55 AM EDT [facility] Blood Venipuncture / Unknown 04/01/2025 1:02 AM EDT 04/01/2025 1:33 AM EDT us Pk Mckeon MD LAB BLOOD ORDERABLES Final R esult Performing Organization Address City/[facility] Co de Phone Number [facility]
[address] [place] [address], * (ABNORMAL) Magnesium (04/01/2025 1:02 AM EDT) Magnesium 3.0(H) 1.6 - 2.4 mg/dL 04/01/2025 1:58 AM EDT [facility] Blood Venipuncture / Unknown 04/01/2025 1:02 AM EDT 04/01/2025 1:33 AM EDT us Pk Mckeon MD LAB BLOOD ORDERABLES Final R esult Performing Organization Address City/[facility]/ZIP Co de Phone Number [facility]
[address] [place] [address], [place] [phone] * (ABNORMAL) Comprehensive Metabolic Panel (04/01/2025 1:02 AM EDT) Glucose 137(H) 65 - 99 mg/dL 04/01/2025 1:58 AM EDT [facility] BUN 12.1 8.0 - 23.0 mg/dL 04/01/2025 1:58 AM EDT [facility] Creatinine 0.78 0.57 - 1.00 mg/dL 04/01/2025 1:58 AM [facility] Sodium 137 136 - 145 mmol/L 04/01/2025 1:58 AM [facility] Potassium 4.6 3.5 - 5.2 mmol/L 04/01/2025 1:58 AM [facility] Chloride 104 98 - 107 mmol/L 04/01/2025 1:58 AM [facility] CO2 20.4(L) 22.0 - 29.0 mmol/L 04/01/2025 1:58 AM [facility] Calcium 9.1 8.6 - 10.5 mg/dL 04/01/2025 1:58 AM [facility] Total Protein 6.0 6.0 - 8.5 g/dL 04/01/2025 1:58 AM [facility] Albumin 3.5 3.5 - 5.2 g/dL 04/01/2025 1:58 AM [facility] ALT (SGPT) 21 1 - 33 U/L 04/01/2025 1:58 AM [facility] AST (SGOT) 42(H) 1 - 32 U/L 04/01/2025 1:58 AM [facility] Alkaline Phosphatase 139(H) 39 - 117 U/L 04/01/2025 1:58 AM [facility] Total Bilirubin 0.8 0.0 - 1.2 mg/dL 04/01/2025 1:58 AM [facility] Globulin 2.5 gm/dL 04/01/2025 1:58 AM [facility] Comment:Calculated Result A/G Ratio 1.4 g/dL 04/01/2025 1:58 AM [facility] BUN/Creatinine Ratio 15.5 7.0 - 25.0 04/01/2025 1:58 AM [facility] Anion Gap 12.6 5.0 - 15.0 mmol/L 04/01/2025 1:58 AM [facility] eGFR 82.9 >60.0 mL/min/1.7 3 04/01/2025 1:58 AM EDT [facility] Blood Venipuncture / Unknown 04/01/2025 1:02 AM EDT 04/01/2025 1:33 AM EDT [facility] - 04/01/2025 1:58 AM [...] MD LAB BLOOD ORDERABLES Final R esult [facility]
[address] [place] [address], * (ABNORMAL) CBC Auto Differential (04/01/2025 1:01 AM EDT) WBC 10.92(H) 3.40 - 10.80 10*3/mm3 04/01/2025 1:42 AM EDT [facility] RBC 3.42(L) 3.77 - 5.28 10*6/mm3 04/01/2025 1:42 AM EDT [facility] Hemoglobin 10.8(L) 12.0 - 15.9 g/dL 04/01/2025 1:42 AM EDT [facility] LABORATORY Hematocrit 32.5(L) 34.0 - 46.6 % 04/01/2025 1:42 AM EDT [facility] MCV 95.0 79.0 - 97.0 fL 04/01/2025 1:42 AM EDT [facility] MCH 31.6 26.6 - 33.0 pg 04/01/2025 1:42 AM [facility] MCHC 33.2 31.5 - 35.7 g/dL 04/01/2025 1:42 AM [facility] RDW 17.0(H) 12.3 - 15.4 % 04/01/2025 1:42 AM [facility] RDW-SD 55.9(H) 37.0 - 54.0 fl 04/01/2025 1:42 AM [facility] MPV 9.7 6.0 - 12.0 fL 04/01/2025 1:42 AM [facility] Platelets 102(L) 140 - 450 10*3/mm3 04/01/2025 1:42 AM [facility] Neutrophil % 68.0 42.7 - 76.0 % 04/01/2025 1:42 AM [facility] Lymphocyte % 20.3 19.6 - 45.3 % 04/01/2025 1:42 AM [facility] Monocyte % 9.2 5.0 - 12.0 % 04/01/2025 1:42 AM [facility] Eosinophil % 1.6 0.3 - 6.2 % 04/01/2025 1:42 AM [facility] Basophil % 0.4 0.0 - 1.5 % 04/01/2025 1:42 AM [facility] Immature Grans % 0.5 0.0 - 0.5 % 04/01/2025 1:42 AM [facility] Neutrophils, Absolute 7.42(H) 1.70 - 7.00 10*3/mm3 04/01/2025 1:42 AM [facility] Lymphocytes, Absolute 2.22 0.70 - 3.10 10*3/mm3 04/01/2025 1:42 AM [facility] Monocytes, Absolute 1.01(H) 0.10 - 0.90 10*3/mm3 04/01/2025 1:42 AM [facility] Eosinophils, Absolute 0.17 0.00 - 0.40 10*3/mm3 04/01/2025 1:42 AM EDT [facility] Basophils, Absolute 0.04 0.00 - 0.20 10*3/mm3 04/01/2025 1:42 AM EDT [facility] Immature Grans, Absolute 0.06(H) 0.00 - 0.05 10*3/mm3 04/01/2025 1:42 AM EDT [facility] nRBC 0.0 0.0 - 0.2 /100 WBC 04/01/2025 1:42 AM EDT [facility] Blood Venipuncture / Unknown 04/01/2025 1:01 AM EDT 04/01/2025 1:36 AM EDT Pk Mckeon MD LAB BLOOD ORDERABLES Final R esult [facility]
[address] [place] [address], * (ABNORMAL) POC Glucose Q6H (04/01/2025 12:04 AM EDT) Glucose 135(H) 70 - 130 mg/dL 04/01/2025 12:07 AM EDT [facility] Comment:Serial Number: [id number]: [id number] Blood 04/01/2025 12:0 4 AM EDT 04/01/2025 12:07 AM EDT Narda Davila PA-C POINT OF CARE TEST ORDERABLES Fi nal Result [facility]
[address] [place] [address], * MRI Brain Without Contrast (03/31/2025 10:23 [...] than right. Findings were communicated to the medical staff services coordinator, Horace at 6:03 a.m. at the [...] than right. Findings were communicated to the medical staff services coordinator, Horace at 6:03 a.m. atthe time of interpretation Electronically Signed: Pérez Ardon MD 04/01/2025 6:05 AM EDT Workstation ID: [id number] us Lowell Do DO IMG MRI ORDERABLES Final Result * (ABNORMAL) POC Glucose Q6H (03/31/2025 6:04 PM EDT) [facility] Glucose 135(H) 70 - 130 mg/dL 03/31/2025 6:05 PM EDT [facility] Comment:Serial Number: [id number]: [id number] Blood 03/31/2025 6:04 PM EDT 03/31/2025 6:05 PM EDT Narda Davila PA-C POINT OF CARE TEST ORDERABLES Fi nal Result [facility]
[address] [place] [address], [place] [phone] * Type & Screen (03/31/2025 3:22 PM EDT) ABO Type A 03/31/2025 4:13 PM EDT [facility] RH type Positive 03/31/2025 4:13 PM EDT [facility] Antibody Screen Negative 03/31/2025 4:13 PM EDT [facility] T&S Expiration Date 04/03/2025 11:59:59 PM 03/31/2025 4:13 PM EDT [facility] Blood Venipuncture / Unknown 03/31/2025 3:22 PM EDT 03/31/2025 3:41 PM EDT us Pk Mckeon MD BLOOD BANK TEST ORDERABLES E dited Result - Final Performing Organization Address City/[facility]/ZIP Co de Phone Number [facility]
[address] [place] [address], [place] [phone] * Vitamin B12 (03/31/2025 3:22 PM EDT) Pathologist [facility] Vitamin B-12 345 211 - 946 pg/mL 03/31/2025 9:06 PM EDT [facility] Blood Venipuncture / Unknown 03/31/2025 3:22 PM EDT 03/31/2025 3:38 PM EDT Narrative [facility] - 03/31/2025 9:06 PM EDT Results may be falsely increased if patient taking Biotin. us Pk Mckeon MD LAB BLOOD ORDERABLES Final R esult [facility]
[address] [place] [address], [place] [phone] * Folate (03/31/2025 3:22 PM EDT) Folate >20.00 4.78 - 24.20 ng/mL 03/31/2025 9:06 PM EDT [facility] Blood Venipuncture / Unknown 03/31/2025 3:22 PM EDT 03/31/2025 3:38 PM EDT Narrative [facility] - 03/31/2025 9:06 PM EDT Results may be falsely increased if patient taking Biotin. Pk Mckeon MD LAB BLOOD ORDERABLES Final R esult Performing Organization Address City/[facility]/ZIP Co de Phone Number [facility]
[address] [place] [address], * EEG AWAKE OR DROWSY PORTABLE (03/31/2025 2:20 PM EDT) Impressions NEUROLOGY - 03/31/2025 4:32 PM EDT Diffuse cerebral dysfunction of mild-moderate degree, nonspecific but most commonly seen due to toxic/metabolic or hypoxemic cause No ongoing seizures are present This report is transcribed using the MedSocket dictation system. Narrative NEUROLOGY - 03/31/2025 4:32 [...] focal features or epileptiform activity are seen us Narda Davila PA-C NEUROLOGY ORDERABLES Final Resul t Performing Organization Address City/[facility]/ZIP Co de Phone Number NEUROLOGY * MRSA Screen, PCR (Inpatient) - Swab, Nares (03/31/2025 2:09 PM EDT) MRSA PCR Negative Negative CEPHEID GENEXPERT 03/31/2025 3:37 PM EDT [facility] Swab Structure of anterior naris / Unknown Collection / Unknown 03/31/2025 2:09 PM EDT 03/31/2025 2:24 PM EDT Narrative [facility] - 03/31/2025 3:37 PM EDT The negative predictive value of this diagnostic test is high and should only be used to consider de-escalating anti-MRSA therapy. A positive result may indicate colonization with MRSA and must be correlated clinically. MRSA Negative Pk Mckeon MD MICROBIOLOGY - GENERAL ORDER LORENA Final Result [facility]
[address] [place] [address], * XR Abdomen KUB (03/31/2025 12:58 PM EDT) Anatomical Region Laterality Modality Body, Abdomen N/A Radiographic Gerri ging 03/31/2025 1:12 PM EDT Impressions 03/31/2025 1:13 PM EDT Impression: 1.Nasogastric tube tip is within the stomach. 2.Atelectatic changes suggested in the visualized lower lungs. Electronically Signed: Marques Roberto MD 03/31/2025 1:13 PM EDT Workstation ID: [id number] Narrative 03/31/2025 1:13 PM EDT XR ABDOMEN [...] MD 03/31/2025 1:13 PM EDT Workstation ID: [id number] Pk Mckeon MD IMG DIAGNOSTIC IMAGING ORDER LORENA Final Result * Blood Culture - Blood, Hand, Right (03/31/2025 12:40 PM EDT) Blood Culture No growth at 5 days 04/05/2025 1:46 PM EDT [facility] Blood Structure of right hand / Unknown Venipuncture / Unknown 03/31/2025 12:40 PM EDT 03/31/2025 1:32 PM EDT Narda Davila PA-C MICROBIOLOGY - GENERAL ORDERABLE S Final Result [facility]
[address] [place] [address], * Blood Culture - Blood, Hand, Left (03/31/2025 12:28 PM EDT) Blood Culture No growth at 5 days 04/05/2025 1:46 PM EDT [facility] Blood Structure of left hand / Unknown Venipuncture / Unknown 03/31/2025 12:28 PM EDT 03/31/2025 1:32 PM EDT Narrative [facility] - 04/05/2025 1:46 PM EDT Less than seven (7) mL's of blood was collected. Insufficient quantity may yield false negative results. us Narda Davila PA-C MICROBIOLOGY - GENERAL ORDERABLE S Final Result Performing Organization Address City/[facility] Co de Phone Number [facility]
[address] [place] [address], * ABO RH Specimen Verification (03/31/2025 12:04 PM EDT) Pathologist [facility] ABO Type A 03/31/2025 11:45 PM EDT [facility] RH type Positive 03/31/2025 11:45 PM EDT [facility] Blood Venipuncture / Unknown 03/31/2025 12:04 PM EDT 03/31/2025 3:49 PM EDT us Pk Mckeon MD BLOOD BANK TEST ORDERABLES F inal Result Performing Organization Address [facility] Co de Phone Number [facility]
[address] [place] [address], * (ABNORMAL) Reticulocytes (03/31/2025 12:04 PM EDT) [facility] Reticulocyte % 3.55(H) 0.70 - 1.90 % 03/31/2025 1:09 PM EDT [facility] Reticulocyte Absolute 0.1250 0.0200 - 0.1300 10*6/mm3 03/31/2025 1:09 PM EDT [facility] Blood Line / Unknown 03/31/2025 12 :04 PM EDT 03/31/2025 12:10 PM EDT us Pk Mckeon MD LAB BLOOD ORDERABLES Final R esult Performing Organization Address [facility] Co de Phone Number [facility]
[address] [place] [address], * Ferritin (03/31/2025 12:04 PM EDT) Ferritin 45.20 13.00 - 150.00 ng/mL 03/31/2025 1:29 PM EDT [facility] Blood Line / Unknown 03/31/2025 12 :04 PM EDT 03/31/2025 12:09 PM EDT Narrative [facility] - 03/31/2025 1:29 PM EDT Results may be falsely decreased if patient taking Biotin. us Pk Mckeon MD LAB BLOOD ORDERABLES Final R esult [facility]
[address] [place] [address], * Iron Profile w/o Ferritin (03/31/2025 12:04 PM EDT) Iron 117 37 - 145 mcg/dL 03/31/2025 1:29 PM EDT [facility] Iron Saturation (TSAT) 27 20 - 50 % 03/31/2025 1:29 PM EDT [facility] Transferrin 290 200 - 360 mg/dL 03/31/2025 1:29 PM EDT [facility] TIBC 432 298 - 536 mcg/dL 03/31/2025 1:29 PM EDT [facility] Blood Line / Unknown 03/31/2025 12 :04 PM EDT 03/31/2025 12:09 PM EDT us Pk Mckeon MD LAB BLOOD ORDERABLES Final R esult [facility]
[address] [place] [address], * T4, Free (03/31/2025 12:04 PM EDT) Free T4 1.15 0.92 - 1.68 ng/dL 03/31/2025 1:10 PM EDT [facility] Blood Line / Unknown 03/31/2025 12 :04 PM EDT 03/31/2025 12:09 PM EDT us Pk Mckeon MD LAB BLOOD ORDERABLES Final R esult Performing Organization Address [facility]/ZIP Co de Phone Number [facility]
[address] [place] [address], * Ammonia (03/31/2025 12:04 PM EDT) Ammonia 36 11 - 51 umol/L 03/31/2025 12:32 PM EDT [facility] Blood Line / Unknown 03/31/2025 12 :04 PM EDT 03/31/2025 12:09 PM EDT Narda Davila PA-C LAB BLOOD ORDERABLES Final Resul t Performing Organization Address [facility] Co de Phone Number [facility]
[address] [place] [address], * (ABNORMAL) TSH Rfx On Abnormal To Free T4 (03/31/2025 12:04 PM EDT) Pathologist [facility] TSH 4.410(H) 0.270 - 4.200 uIU/mL 03/31/2025 12:44 PM EDT [facility] Blood Line / Unknown 03/31/2025 12 :04 PM EDT 03/31/2025 12:09 PM EDT us Pk Mckeon MD LAB BLOOD ORDERABLES Final R esult Performing Organization Address [facility] Co de Phone Number [facility]
[address] [place] [address], [place] [phone] * (ABNORMAL) Procalcitonin (03/31/2025 12:04 PM EDT) Procalcitonin 0.35(H) 0.00 - 0.25 ng/mL 03/31/2025 12:41 PM EDT [facility] Blood Line / Unknown 03/31/2025 12 :04 PM EDT 03/31/2025 12:09 PM EDT Narrative [facility] - 03/31/2025 12:41 PM EDT As [...] Day 4 values are available. Refer to http://www.dunguh-lkv-rqomzqyyyp.com Change in PCT <=80% A decrease of [...] MD LAB BLOOD ORDERABLES Final R esult [facility]
[address] [place] [address], * Phosphorus (03/31/2025 12:04 PM EDT) Phosphorus 3.2 2.5 - 4.5 mg/dL 03/31/2025 12:41 PM EDT [facility] Blood Line / Unknown 03/31/2025 12 :04 PM EDT 03/31/2025 12:09 PM EDT us Pk Mckeon MD LAB BLOOD ORDERABLES Final R esult Performing Organization Address City/[facility]/ZIP Co de Phone Number [facility]
[address] [place] [address], [place] [phone] * (ABNORMAL) Magnesium (03/31/2025 12:04 PM EDT) Magnesium 1.3(L) 1.6 - 2.4 mg/dL 03/31/2025 12:41 PM EDT [facility] Blood Line / Unknown 03/31/2025 12 :04 PM EDT 03/31/2025 12:09 PM EDT us Pk Mckeon MD LAB BLOOD ORDERABLES Final R esult Performing Organization Address [facility] Co de Phone Number [facility]
[address] [place] [address], [place] [phone] * Lactic Acid, Plasma (03/31/2025 12:04 PM EDT) Lactate 2.0 0.5 - 2.0 mmol/L 03/31/2025 12:31 PM EDT [facility] Comment:Falsely depressed re sults may occur on samples drawn from patients receiving N-Acetylcysteine (NAC) or Metamizole. Blood Line / Unknown 03/31/2025 12 :04 PM EDT 03/31/2025 12:09 PM EDT us Pk Mckeon MD LAB BLOOD ORDERABLES Final R esult Performing Organization Address City/[facility] Co de Phone Number [facility]
[address] [place] [address], [place] [phone] * Hemoglobin A1c (03/31/2025 12:04 PM EDT) Hemoglobin A1C 5.33 4.80 - 5.60 % 03/31/2025 12:58 PM EDT [facility] Blood Line / Unknown 03/31/2025 12 :04 PM EDT 03/31/2025 12:10 PM EDT Narrative [facility] - 03/31/2025 12:58 PM EDT Hemoglobin A1C Ranges: Increased Risk for Diabetes 5.7% to 6.4% Diabetes >= 6.5% Diabetic Goal < 7.0% Pk Mckeon MD LAB BLOOD ORDERABLES Final R esult [facility]
[address] [place] [address], * (ABNORMAL) Comprehensive Metabolic Panel (03/31/2025 12:04 PM EDT) Glucose 112(H) 65 - 99 mg/dL 03/31/2025 12:41 PM EDT [facility] BUN 14.5 8.0 - 23.0 mg/dL 03/31/2025 12:41 PM EDT [facility] Creatinine 0.74 0.57 - 1.00 mg/dL 03/31/2025 12:41 PM EDT [facility] Sodium 137 136 - 145 mmol/L 03/31/2025 12:41 PM EDT [facility] Potassium 3.6 3.5 - 5.2 mmol/L 03/31/2025 12:41 PM EDT [facility] Chloride 100 98 - 107 mmol/L 03/31/2025 12:41 PM EDT [facility] CO2 23.3 22.0 - 29.0 mmol/L 03/31/2025 12:41 PM EDT [facility] Calcium 9.5 8.6 - 10.5 mg/dL 03/31/2025 12:41 PM EDT [facility] Total Protein 7.0 6.0 - 8.5 g/dL 03/31/2025 12:41 PM EDT [facility] Albumin 3.9 3.5 - 5.2 g/dL 03/31/2025 12:41 PM EDT [facility] ALT (SGPT) 23 1 - 33 U/L 03/31/2025 12:41 PM EDT [facility] AST (SGOT) 41(H) 1 - 32 U/L 03/31/2025 12:41 PM EDT [facility] Alkaline Phosphatase 158(H) 39 - 117 U/L 03/31/2025 12:41 PM EDT [facility] Total Bilirubin 1.1 0.0 - 1.2 mg/dL 03/31/2025 12:41 PM EDT [facility] Globulin 3.1 gm/dL 03/31/2025 12:41 PM T [facility] Comment:Calculated Result A/G Ratio 1.3 g/dL 03/31/2025 12:41 PM T [facility] BUN/Creatinine Ratio 19.6 7.0 - 25.0 03/31/2025 12:41 PM T [facility] Anion Gap 13.7 5.0 - 15.0 mmol/L 03/31/2025 12:41 PM [facility] eGFR 88.3 >60.0 mL/min/1.7 3 03/31/2025 12:41 PM T [facility] Blood Line / Unknown 03/31/2025 12 :04 PM EDT 03/31/2025 12:09 PM EDT [facility] - 03/31/2025 12:41 PM [...] MD LAB BLOOD ORDERABLES Final R esult [facility]
[address] [place] [address], * (ABNORMAL) CK (03/31/2025 12:04 PM EDT) Pathologist [facility] Creatine Kinase 215(H) 20 - 180 U/L 03/31/2025 12:41 PM EDT [facility] Blood Line / Unknown 03/31/2025 12 :04 PM EDT 03/31/2025 12:09 PM EDT us Pk Mckeon MD LAB BLOOD ORDERABLES Final R esult Performing Organization Address City/[facility]/ZIP Co de Phone Number [facility]
[address] [place] [address], * (ABNORMAL) CBC Auto Differential (03/31/2025 12:04 PM EDT) Pathologist [facility] WBC 5.94 3.40 - 10.80 10*3/mm3 03/31/2025 12:22 PM EDT [facility] RBC 3.47(L) 3.77 - 5.28 10*6/mm3 03/31/2025 12:22 PM EDT [facility] Hemoglobin 10.5(L) 12.0 - 15.9 g/dL 03/31/2025 12:22 PM EDT [facility] Hematocrit 31.2(L) 34.0 - 46.6 % 03/31/2025 12:22 PM EDT [facility] MCV 89.9 79.0 - 97.0 fL 03/31/2025 12:22 PM EDT [facility] MCH 30.3 26.6 - 33.0 pg 03/31/2025 12:22 PM EDT [facility] MCHC 33.7 31.5 - 35.7 g/dL 03/31/2025 12:22 PM EDT [facility] RDW 16.3(H) 12.3 - 15.4 % 03/31/2025 12:[facility] RDW-SD 51.3 37.0 - 54.0 fl 03/31/2025 12:22 PM EDT [facility] MPV 9.2 6.0 - 12.0 fL 03/31/2025 12:22 PM EDT [facility] Platelets 75(L) 140 - 450 10*3/mm3 03/31/2025 12:22 PM [facility] Neutrophil % 77.6(H) 42.7 - 76.0 % 03/31/2025 12:22 PM [facility] Lymphocyte % 16.0(L) 19.6 - 45.3 % 03/31/2025 12:22 PM [facility] Monocyte % 5.4 5.0 - 12.0 % 03/31/2025 12:22 PM [facility] Eosinophil % 0.3 0.3 - 6.2 % 03/31/2025 12:22 PM [facility] Basophil % 0.2 0.0 - 1.5 % 03/31/2025 12:22 PM [facility] Immature Grans % 0.5 0.0 - 0.5 % 03/31/2025 12:22 PM [facility] Neutrophils, Absolute 4.61 1.70 - 7.00 10*3/mm3 03/31/2025 12:22 PM [facility] Lymphocytes, Absolute 0.95 0.70 - 3.10 10*3/mm3 03/31/2025 12:22 PM [facility] Monocytes, Absolute 0.32 0.10 - 0.90 10*3/mm3 03/31/2025 12:22 PM [facility] Eosinophils, Absolute 0.02 0.00 - 0.40 10*3/mm3 03/31/2025 12:22 PM [facility] Basophils, Absolute 0.01 0.00 - 0.20 10*3/mm3 03/31/2025 12:22 PM EDT [facility] Immature Grans, Absolute 0.03 0.00 - 0.05 10*3/mm3 03/31/2025 12:22 PM EDT [facility] nRBC 0.0 0.0 - 0.2 /100 WBC 03/31/2025 12:22 PM EDT [facility] Blood Line / Unknown 03/31/2025 12 :04 PM EDT 03/31/2025 12:10 PM EDT us Pk Mckeon MD LAB BLOOD ORDERABLES Final R esult Performing Organization Address City/[facility]/ZIP Co de Phone Number [facility]
[address] [place] [address], * BNP (03/31/2025 12:04 PM EDT) [facility] proBNP 878.0 0.0 - 900.0 pg/mL 03/31/2025 12:41 PM EDT [facility] Blood Line / Unknown 03/31/2025 12 :04 PM EDT 03/31/2025 12:09 PM EDT Narrative [facility] - 03/31/2025 12:41 PM EDT This [...] MD LAB BLOOD ORDERABLES Final R esult [facility]
[address] [place] [address], * (ABNORMAL) Urinalysis, Microscopic Only - Urine, Clean Catch (03/31/2025 11:33 AM EDT) RBC, UA 6-10(A) None Seen, 0-2 /HPF 03/31/2025 12:30 PM EDT [facility] WBC, UA 6-10(A) None Seen, 0-2 /HPF 03/31/2025 12:30 PM EDT [facility] Bacteria, UA Trace(A) None Seen /HPF 03/31/2025 12:30 PM EDT [facility] Squamous Epithelial Cells, UA 0-2 None Seen, 0-2 /HPF 03/31/2025 12:30 PM EDT [facility] Renal Epithelial Cells, UA 0-2 0 - 2 /HPF 03/31/2025 12:30 PM EDT [facility] Hyaline Casts, UA 7-12 None Seen /LPF 03/31/2025 12:30 PM EDT [facility] Methodology Manual Light Microscopy 03/31/2025 12:30 PM EDT [facility] Urine Urine specimen obtained by clean catch procedure / Unknown Collection / Unknown 03/31/2025 11:33 AM EDT 03/31/2025 11:44 AM EDT Pk Mckeon MD URINE ORDERABLES Final Resul t Performing Organization Address City/[facility]/ZIP Co de Phone Number [facility]
[address] [place] [address], * Respiratory Culture - Sputum, ET Suction (03/31/2025 11:33 AM EDT) Respiratory Culture Light growth (2+) Normal respiratory marva. No S. aureus or Pseudomonas aeruginosa detected. Final report. ANIVAL 04/02/2025 11:36 AM EDT [facility] Gram Stain Few (2+) WBCs per low power field 04/02/2025 11:36 AM EDT [facility] Gram Stain No Epithelial cells per low power field 04/02/2025 11:36 AM EDT [facility] Gram Stain Few (2+) Gram positive bacilli 04/02/2025 11:36 AM EDT [facility] Sputum Tracheal structure / Unknown Collection / Unknown 03/31/2025 11:33 AM EDT 03/31/2025 11:38 AM EDT Narda Davila PA-C MICROBIOLOGY - GENERAL ORDERABLE S Final Result [facility]
[address] [place] [address], [place] [phone] [facility]
[address] [place] [address], * (ABNORMAL) Urinalysis With Microscopic If Indicated (No Culture) - Urine, Clean Catch (03/31/2025 11:33 AM EDT) Color, UA Yellow Yellow, Straw 03/31/2025 12:31 PM EDT [facility] Appearance, UA Clear Clear 03/31/2025 12:31 PM EDT [facility] pH, UA 6.5 5.0 - 8.0 03/31/2025 12:31 PM EDT [facility] Specific [place], UA >1.030(H) 1.005 - 1.030 03/31/2025 12:31 PM EDT [facility] Glucose, UA Negative Negative 03/31/2025 12:31 PM EDT [facility] Ketones, UA Negative Negative 03/31/2025 12:31 PM EDT [facility] Bilirubin, UA Negative Negative 03/31/2025 12:31 PM EDT [facility] Blood, UA Small (1+)(A) Negative 03/31/2025 12:31 PM EDT [facility] Protein, UA 100 mg/dL (2+)(A) Negative 03/31/2025 12:31 PM EDT [facility] Leuk Esterase, UA Small (1+)(A) Negative 03/31/2025 12:31 PM EDT [facility] Nitrite, UA Negative Negative 03/31/2025 12:31 PM EDT [facility] Urobilinogen, UA 1.0 E.U./dL 0.2 - 1.0 E.U./dL 03/31/2025 12:31 PM EDT [facility] Urine Urine specimen obtained by clean catch procedure / Unknown Collection / Unknown 03/31/2025 11:33 AM EDT 03/31/2025 11:44 AM EDT us Pk Mckeon MD URINE ORDERABLES Final Resul t [facility]
[address] [place] [address], * (ABNORMAL) Blood Gas, Arterial With Co-Ox (03/31/2025 11:12 AM EDT) Site Left Radial 03/31/2025 11:13 AM EDT [facility]ER[facility] Henok's Test N/A 03/31/2025 11:13 AM EDT [facility] pH, Arterial 7.453(H) 7.350 - 7.450 pH units 03/31/2025 11:13 AM EDT [facility] Comment:83 Value above refer ence range pCO2, Arterial 34.5(L) 35.0 - 45.0 mm Hg 03/31/2025 11:13 AM EDT [facility] Comment:84 Value below refer ence range pO2, Arterial 496.0(H) 83.0 - 108.0 mm Hg 03/31/2025 11:13 AM EDT [facility] Comment:83 Value above refer ence range HCO3, Arterial 24.1 20.0 - 26.0 mmol/L 03/31/2025 11:13 AM T [facility] Base Excess, Arterial 0.5 0.0 - 2.0 mmol/L 03/31/2025 11:13 AM [facility] Hemoglobin, Blood Gas 11.4(L) 14 - 18 g/dL 03/31/2025 11:13 AM [facility] Comment:84 Value below refer ence range Hematocrit, Blood Gas 34.8(L) 38.0 - 51.0 % 03/31/2025 11:13 AM T [facility] Oxyhemoglobin 98.6 94 - 99 % 03/31/2025 11:13 AM [facility] Methemoglobin 0.70 0.00 - 1.50 % 03/31/2025 11:13 AM [facility] Carboxyhemoglobin 1.2 0 - 2 % 025 11:13 AM [facility] CO2 Content 25.2 22 - 33 mmol/L 03/31/2025 11:13 AM [facility] Temperature 37.0 03/31/2025 11:13 AM [facility] Barometric Pressure for Blood Gas 03/31/2025 11:13 AM [facility] Comment:N/A Modality Ventilator 03/31/2025 11:13 AM [facility] FIO2 100 % 03/31/2025 11:13 AM [facility] Ventilator Mode VC+/AC 11:13 AM [facility] Set Tidal Volume 0.42 03/31/20 11:13 AM [facility] Rate 14 Breaths/ minute 03/31/2025 11:13 AM [facility] PEEP 5.0 03/31/2025 11:13 AM [facility] PIP 0 cmH2O 03/31/2025 11:13 AM [facility] Comment:Meter: [id number] Virtual Recruiter: [id number] IPAP 0 03/31/2025 11:13 AM EDT [facility] EPAP 0 03/31/2025 11:13 AM EDT [facility] pH, Temp Corrected 7.453 pH Units 2024 11:13 AM EDT [facility] pCO2, Temperature Corrected 34.5(L) 35 - 45 mm Hg 03/31/2025 11:13 AM EDT [facility] pO2, Temperature Corrected 496(H) 83 - 108 mm Hg 03/31/2025 11:13 AM EDT [facility] Arterial Blood 03/31/2025 11 :12 AM EDT 03/31/2025 11:12 AM EDT us Pk Mckeon MD LAB BLOOD ORDERABLES Final R esult [facility]
[address] [place] [address], [place] * XR Chest 1 View (03/31/2025 10:58 AM EDT) Anatomical Region Laterality Modality Body N/A Radiographic Gerri ging 03/31/2025 11:0 0 AM EDT Impressions 03/31/2025 11:02 AM EDT Appropriate tube placement. Otherwise no acute cardiopulmonary disease. Electronically Signed: Allen Badillo MD 03/31/2025 11:02 AM EDT Workstation ID: [id number] Narrative 03/31/2025 11:02 AM EDT XR CHEST 1 VW Date of Exam: 03/31/2025 10:47 AM EDT Indication: patient intubated, possible aspiration. Comparison: None available. Findings: Endotracheal tube tip 3.7 cm above the level of the demarcus. Feeding tube tip extending below the diaphragm and beyond the [id number]. No consolidation. No pneumothorax or pleural effusion. [...] tip extending below the diaphragm and beyond [id number]. No consolidation. No pneumothorax or pleural effusion. Theclavicles are intact. No rib fractures. The visualized upper abdomen appears normal. Calcification of the aortic arch.Faint platelike atelectasis along the right minor fissure. IMPRESSION: Appropriate tube placement. Otherwise no acute cardiopulmonary disease. Electronically Signed: Allen Badillo MD 03/31/2025 11:02 AM EDT Workstation ID: [id number] us Pk Mckeon MD IMG DIAGNOSTIC IMAGING ORDER LORENA Final Result * (ABNORMAL) POC Glucose Once (03/31/2025 10:23 AM EDT) Glucose 131(H) 70 - 130 mg/dL 03/31/2025 11:30 AM EDT [facility] Comment:Serial Number: [id number]: [id number] Blood 03/31/2025 10:2 3 AM EDT 03/31/2025 11:30 AM EDT us Pk Mckeon MD POINT OF CARE TEST ORDERABLE S Final Result [facility]
[address] [place] [address], * XR Outside Chest (03/31/2025 12:15 AM [...] Minutes, Every 24 Hours, First dose on Tue03/31/25 at 1200, For 5 days, LR should [...] over 30 Minutes, Daily, First dose on Tue03/31/25 at 1215, Protect from light. New Bag [...] for injection by adding 1 mL of marketing intelligence analyst-supplied sterile diluent or sterile water for injection to a vial containing 1 mg of the drug, to provide solutions containing 1 mg/mL. Shake vial gently to dissolve. HYDROcodone-acetaminophen (NORCO) 5-325 MG per tablet 1 tablet 1 tablet, Oral, Every 4 Hours PRN, Moderate Pain, Starting on Tue04/07/25 at 1404, For 10 days, [RORY] Do [...] over 1 Hours, Once, On Tue03/31/25 at 1345, For 1 dose New Bag [...] PRN, Withdrawal, For CIWA-Ar 8-10, Starting on 04/01/25 at 1609, For 5 days, Reassess 1 Hour After Administration Given 04/05/2025 1:41 AM EDT 1 mg Magnesium Cardiology Dose Replacement - Follow Nurse / BPA Driven Protocol Open Order & [facility] Electrolyte Replacement Protocol Algorithm to View Details [...] Daily, First dose on Tue04/05/25 at 0900, ([facility]) Given 04/09/2025 9:39 AM EDT 1 tablet [...] with warm soapy water or use hand visual communications instructor. 3. Open the tube of mupirocin 2%. [...] 228 mg = 4 mg/kg 57 kg [place] weight), Intravenous, at 600 mL/hr, Administer over 10 Minutes, Once, On Tue03/31/25 at 2045, For 1 dose, Patient must be on telemetry and continuous pulse oximetry. New Bag 03/31/2025 11:00 PM EDT 227.5 mg 600 mL/hr PHENobarbital injection 178.75 mg 178.75 mg (rounded from 171 mg = 3 mg/kg 57 kg [place] weight), Intravenous, Once, On Tue03/31/25 at 2345, For 1 dose, IV push max rate of 60 mg/min. Given 04/01/2025 1:57 AM EDT 178.75 mg PHENobarbital injection 178.75 mg 178.75 mg (rounded from 171 mg = 3 mg/kg 57 kg [place] weight), Intravenous, Once, On 04/01/25 at 0245, [...] injection - ADS Override Pull Starting on 03/31/25 at 1024, For 1 dose, Created by cabinet override propofol (DIPRIVAN) infusion 10 mg/mL 100 mL 5-50 mcg/kg/min 67.1 kg (2.013-20.13 mL/hr, rounded to 2.01-20.13 mL/hr), Intravenous, Titrated, Starting on 03/31/25 at 1130, Begin infusion at 5 [...] Intravenous, As Needed, Line Care, Starting on 03/31/25 at 1029 Given 04/04/2025 9:00 AM EDT 10 mL Given 03/31/2025 8:34 PM EDT 10 mL thiamine (B-1) injection 200 mg 200 mg, Intravenous, Every 8 Hours Scheduled, First dose on 03/31/25 at 1400, For 5 days, Doses of [...] Mcnair, TYRONE)1514 (Given - Provider: Susannah Ramos, RN)2112 (Given - Provider: Kami Moreno, TYRONE) 0939 [...] tube. Caution: Look alike/sound alike drug alert. 24 (Given - Provider: Becky Joaquin RN)1999 (Given - Provider: Salina Allan RN) 926 (Given - Provider: Steph Mcnair RN)2111 (Given - Provider: Kami Moreno RN) 0939 (Given - Provider: Lula Vu, TYRONE) multivitamin (THERAGRAN) tablet 1 tablet 1 tablet, Oral, Daily, First dose on Tue04/05/25 at 0900, ([facility]) 0924 (Given - Provider: Becky Joaquin RN) [...] RN) 0939 (Medication Removed - Provider: Lula Vu RN)0940 (Medication Applied - Provider: Lula Vu [...] access) 0949 (Not Given - Provider: Lula Vu, TYRONE - Reason: Order parameters not met) thiamine (VITAMIN B-1) tablet 100 mg(Linked Group 2) 100 mg, Oral, Daily, First dose (after last modification) on Tue04/03/25 at 0900 0924 (Given - Provider: Becky Joaquin, TYRONE) 0927 (Given - Provider: Steph Mcnair RN) 0939 (Given - Provider: Lula Vu, RN) PRN Medication Order 04/07/2025 04/08/2025 04/09/2025 bisacodyl [...] BPA Driven Protocol Open Order & [facility] Electrolyte Replacement Protocol Algorithm to View Details [...] for injection by adding 1 mL of marketing intelligence analyst-supplied sterile diluent or sterile water for injection [...] CPOT 5-8 1416 (Given - Provider: Becky Joaquin, TYRONE)1900 (Given - Provider: Becky Joaquin, TYRONE) 0206 (Given - Provider: Salina Allan RN)1852 (Given - Provider: Steph Mcnair, TYRONE)2324 (Given - Provider: Kami Moreno, TYRONE) 0338 (Given - Provider: Kami Moreno, TYRONE) Magnesium Cardiology Dose Replacement - Follow Nurse [...] drug alert. 1106 (Given - Provider: Becky Joaquin, TYRONE) Phosphorus Replacement - Follow Nurse / BPA [...] (after last modification) on Tue04/03/25 at 0900 documented in this encounter Care Teams Certified Hearing Instrument Dispenser Relationship Specialty Start Date End Date Provider, [place] [address] PCP - General 03/31/25 documented as of this encounter
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
--- OUTSIDE RECORDS SUMMARY | 2025-04-02 12:15 | XMS_ITS | Encounter Summary ---
Author Organization [facility] Address [address] [place] [address] Care Team Providers Care Blister Rust Eradicator Name Role Phone Provider, No Known Primary Care Provider Unavail able Reason for Visit * Auth/Cert Specialty Diagnoses / Procedures Referred By Contcatherine t Referred To Contact Diagnoses Seizures (respiratory distress, seizure) Referral ID Status Reason Start Date Expiration Date Visits Re quested Visits Authorized [id number] 1 1 Encounter Details Date Type Department Care Team (Late st Contact Info) Description 04/02/2025 1:15 PM EDT Ancillary Procedure [facility] IP SPEECH PATH [address] [place] [phone] Social History Tobacco Use Types Packs/Day [...] and heating? Not hard at all 04/01/2025 [facility] [place] of Occupat ional Health - Occupational Stress [...] things needed for daily living? No 04/01/2025 [facility] Utilities Answer Date Recorded In the past [...] GED or equivalent No 04/01/2025 Preferred Language Mexican 04/01/2025 Comments Unknown Sex and Gender Information Value Date Recorded Sex Assigned at Not on file Legal Sex Female 8:13 AM EDT Gender Identity Not on file Sexual Orientation Not on file documented as of this encounter Plan of Treatment Upcoming Encounters Date Type Department Care Team (Late st Contact Info) Description 09/19/2025 2:30 PM EDT Office Visit [facility]UR[facility] [address] [facility] [address] [place] [address] Radha Morales, SCRUBBER MACHINE TENDER [address] [facility] [address] [place] [address] documented as of this encounter Procedures Procedure Name Priority Date/Time Associated Diagnosis Comments BUSINESS PARTNER FEES FIBEROPTIC ENDO EVAL SWALLOW Routine 04/03/2025 8:23 AM EDT documented in this encounter Results * BUSINESS PARTNER FEES - Fiberoptic Endo Eval Swallow (04/03/2025 8:23 AM EDT) Narrative SYSTEMGENERATED, DOCUMENTATION - 04/03/2025 8:23 AM EDT This procedure was auto-finalized with no dictation required. us Dmitry Nicolas MD BUSINESS PARTNER ORDERABLES Final Resu lt documented in this encounter Visit Diagnoses Not on filedocumented in this encounter Care Teams Blister Rust Eradicator Relationship Specialty Start Date End Date Provider, [place] [address] PCP - General 03/31/25 documented as of this encounter
--- OUTSIDE RECORDS SUMMARY | 2025-04-07 09:35 | XMS_ITS | Encounter Summary ---
Author Organization [facility] Address [address] [place] [address] Care Team Providers Care City Superintendent Name Role Phone Provider, No Known Primary Care Provider Unavail able Reason for Visit * Auth/Cert Specialty Diagnoses / Procedures Referred By Contac t Referred To Contact Diagnoses Seizures (respiratory distress, seizure) Referral ID Status Reason Start Date Expiration Date Visits Re quested Visits Authorized [id number] 1 1 Encounter Details Date Type Department Care Team (Late st Contact Info) Description 04/07/2025 10:35 AM EDT Ancillary Procedure [facility] IP SPEECH PATH [address] [place] [phone] Social History Tobacco Use Types Packs/Day Years Used Date Smoking Tobacco: Every Day Cigarettes 2 46 Started: 1977 Smokeless Tobacco: Never Alcohol Use Standard Drinks/Week Comments Yes 0 [...] and heating? Not hard at all 04/01/2025 [facility] [place] of Occupat ional Health - Occupational Stress [...] things needed for daily living? No 04/01/2025 [facility] Utilities Answer Date Recorded In the past 12 months has th Coll[employer] electric, gas, oil, or water company threatened [...] GED or equivalent No 04/01/2025 Preferred Language Montserratian 04/01/2025 Comments Unknown Sex and Gender Information Value Date Recorded Sex Assigned at Not on file Legal Sex Female 8:13 AM EDT Gender Identity Not on file Sexual Orientation Not on file documented as of this encounter Plan of Treatment Upcoming Encounters Date Type Department Care Team (Late st Contact Info) Description 09/19/2025 2:30 PM EDT Office Visit [facility]UR[facility] [address] [facility] [address] [place] [address] Radha Morales, GIOVANI [address] [place] [address] [address] [place] [address] documented as of this encounter Procedures Procedure Name Priority Date/Time Associated Diagnosis Comments TWIST MAKER FEES FIBEROPTIC ENDO EVAL SWALLOW Routine 04/07/2025 11:54 AM EDT documented in this encounter Results * TWIST MAKER FEES - Fiberoptic Endo Eval Swallow (04/07/2025 11:54 AM EDT) Narrative SYSTEMGENERATED, DOCUMENTATION - 04/07/2025 11:54 AM EDT This procedure was auto-finalized with no dictation required. us Jagruti Goins MD TWIST MAKER ORDERABLES Final Result documented in this encounter Visit Diagnoses Not on filedocumented in this encounter Care Teams City Superintendent Relationship Specialty Start Date End Date Provider, [place] [address] PCP - General 03/31/25 documented as of this encounter
--- OUTSIDE RECORDS SUMMARY | 2025-04-07 09:35 | XMS_ITS | Encounter Summary ---
Author Organization [facility] Address [address] [place] [address] Care Team Providers Care Brim Presser Name Role Phone Provider, No Known Primary Care Provider Unavail able Reason for Visit * Auth/Cert Specialty Diagnoses / Procedures Referred By Contac t Referred To Contact Diagnoses Seizures (respiratory distress, seizure) Referral ID Status Reason Start Date Expiration Date Visits Re quested Visits Authorized [id number] 1 1 Encounter Details Date Type Department Care Team (Late st Contact Info) Description 04/07/2025 10:35 AM EDT Ancillary Procedure [facility] IP SPEECH PATH [address] [place] [phone] Social History Tobacco Use Types Packs/Day [...] and heating? Not hard at all 04/01/2025 [facility] [place] of Occupat ional Health - Occupational Stress [...] for daily living? No 04/01/2025 [facility] Utilities Answer Date Recorded In the past 12 months has th goBalto electric, gas, oil, or water company threatened [...] GED or equivalent No 04/01/2025 Preferred Language Russian 04/01/2025 Comments Unknown Sex and Gender Information Value Date Recorded Sex Assigned at Not on file Legal Sex Female 8:13 AM EDT Gender Identity Not on file Sexual Orientation Not on file documented as of this encounter Plan of Treatment Upcoming Encounters Date Type Department Care Team (Late st Contact Info) Description 09/19/2025 2:30 PM EDT Office Visit [facility]UR[facility] [address] [facility] [address] [place] [address] Radha Morales, GIOVANI [address] [place] [address] [address] [place] [address] documented as of this encounter Procedures Procedure Name Priority Date/Time Associated Diagnosis Comments INSTRUCTION LIBRARIAN FEES FIBEROPTIC ENDO EVAL SWALLOW Routine 04/07/2025 11:54 AM EDT documented in this encounter Results * INSTRUCTION LIBRARIAN FEES - Fiberoptic Endo Eval Swallow (04/07/2025 11:54 AM EDT) Narrative SYSTEMGENERATED, DOCUMENTATION - 04/07/2025 11:54 AM EDT This procedure was auto-finalized with no dictation required. us Jagruti Goins MD INSTRUCTION LIBRARIAN ORDERABLES Final Result documented in this encounter Visit Diagnoses Not on filedocumented in this encounter Care Teams Brim Presser Relationship Specialty Start Date End Date Provider, [place] [address] PCP - General 03/31/25 documented as of this encounter
[2025-05-29] VITALS (8 sets, daily range): BP systolic 131–145; BP diastolic 64–109; PULSE 85–104; RESP 16–18; TEMP 36.9–37; O2SAT 94–100; BMI 20.6; BMI 21.6
--- NOTE | 2025-05-29 15:18 | CT_ITS ---
PROCEDURE INFORMATION: Exam: CT Head Without Contrast Exam date and time: 05/29/2025 4:19 PM Age: 70 years old Clinical indication: Injury or trauma; Fall; Blunt trauma (contusions or hematomas); Additional info: Fall, L facial bruising, AMS TECHNIQUE: Imaging protocol: Computed tomography of the head without contrast. Radiation optimization: All CT scans at this facility use at least one of these dose optimization techniques: automated exposure control; mA and/or kV adjustment per patient size (includes targeted exams where dose is matched to clinical indication); or iterative reconstruction. COMPARISON: CT HEAD/BRAIN WO CON 03/31/2025 7:49 AM FINDINGS: Limitations: Exam is somewhat motion limited. Brain: No acute hemorrhage, edema, or mass effect. Cerebral ventricles: Generalized age-related cerebral volume loss. No hydrocephalus. Paranasal sinuses: Visualized sinuses are unremarkable. No fluid levels. Mastoid air cells: Visualized mastoid air cells are well aerated. Bones: Unremarkable. No acute fracture. Soft tissues: Unremarkable. IMPRESSION: Within limitations of motion, no acute hemorrhage, edema, or mass effect.
--- NOTE | 2025-05-29 15:18 | CT_ITS ---
PROCEDURE INFORMATION: Exam: CT Abdomen And Pelvis With Contrast Exam date and time: 05/29/2025 4:23 PM Age: 70 years old Clinical indication: Abdominal pain; Additional info: R upper abd/r lower chest pain, found down TECHNIQUE: Imaging protocol: Computed tomography of the abdomen and pelvis with contrast. Radiation optimization: All CT scans at this facility use at least one of these dose optimization techniques: automated exposure control; mA and/or kV adjustment per patient size (includes targeted exams where dose is matched to clinical indication); or iterative reconstruction. Contrast material: ISOVUE; Contrast volume: 70 ml; Contrast route: IV; COMPARISON: 1. CT ANGIO ABD/PEL - TRAUMA 01/03/2025 11:[address] ANGIO CHEST PE PROTOCOL 05/29/2025 4:23 PM FINDINGS: Lungs: 5 mm subpleural nodule within the posterior aspect of the right lower lobe is unchanged. Small focus of septal thickening and nodularity within the periphery of the right lower lobe more has the appearance of postinfectious or postinflammatory change. There are a few additional scattered areas of peripheral septal thickening and slight nodularity within the right and left lower lung. Small 4 mm nodule within the lateral segment of the right middle lobe is unchanged. 3 mm nodule within the lingula (image 14 of series 3). No dense airspace consolidation of the right or left lung base. Pleural spaces: No significant pleural effusion. No pneumothorax. Heart: Heart size is upper limits for normal. No pericardial effusion. Diaphragm: Probable small hiatal hernia. Liver: Hepatomegaly. The liver is diffusely decreased in density, compatible with hepatic steatosis. Portion of the liver surface appears slightly nodular. Please correlate with any clinical history of cirrhosis. No suspicious mass or lesion within the liver. Gallbladder and biliary ducts: Multiple gallstones are present. Gallbladder is contracted which limits evaluation. Apparent mild gallbladder wall thickening more likely secondary to gallbladder contraction. No surrounding pericholecystic free fluid. No intrahepatic ductal dilatation. Normal caliber of the common bile duct. Pancreas: The pancreas is unremarkable. Spleen: Borderline enlargement of the spleen. No suspicious mass or lesion within the spleen. Adrenal glands: Low-density nodular fullness of the right and left adrenal gland. No suspicious adrenal mass. Findings are unchanged. Kidneys and ureters: Mild bilateral hydronephrosis. No suspicious renal mass. No renal calculi. Mild bilateral hydroureter, greater on the right. This likely secondary to distal compression from enlarged leiomyomatous uterus. Stomach and bowel: Stomach is distended with fluid. Small bowel loops are normal in caliber no evidence of a small bowel obstruction. Very redundant sigmoid colon. Colon is decompressed which limits evaluation. No definitive evidence of acute colitis. Appendix: Presumed small appendix appears unremarkable. Intraperitoneal space: No significant peritoneal free fluid. No free peritoneal air. Vasculature: Aorta demonstrates marked atherosclerotic calcification. No infrarenal abdominal aortic aneurysm. Dense atherosclerotic plaque at the origin of the superior mesenteric artery results in high-grade stenosis. Celiac artery is patent. Atherosclerotic plaque of the right and left renal ostium, greater on the right. Dense atherosclerotic plaque is present along the right and left iliac arteries. Iliac arteries are patent. Main portal vein is patent. There are few scattered varices within the upper abdomen. Lymph nodes: There are no enlarged or suspicious intra-abdominal, pelvic or retroperitoneal lymph nodes. Urinary bladder: Bladder is distended. No bladder wall nodularity or mass. No bladder calculus. Reproductive: Uterus is markedly enlarged. There are numerous intramural and subserosal masses throughout the uterus. Numerous calcified masses are present within the uterus. The uterus measures up to 11.8 x 11.6 x 9.0 cm. Findings most compatible with enlarged leiomyomatous uterus. No suspicious adnexal mass. Bones/joints: No acute osseous abnormality. No acute fracture. No suspicious lytic or sclerotic bone lesion. Moderately advanced disc space narrowing and degenerative endplate changes present at L5-S1. No areas of severe central spinal canal stenosis. Multilevel [id number] degenerative facet arthropathy within the mid and lower lumbar spine. Mild osteoarthritic changes are present at the right and left hip joint. Soft tissues: Abdominal wall musculature is symmetric. No large ventral hernia. IMPRESSION: 1. No focal inflammatory process or free fluid within the abdomen or pelvis. No suspicious mass or lymphadenopathy. 2. Hepatomegaly. Hepatic steatosis. Question subtle nodularity along the liver surface. Borderline enlargement of the spleen. There are a few varices within the mid upper abdomen. Findings suggestive of potential changes of portal hypertension. 3. Mild bilateral hydronephrosis, slightly greater on the right. Proximal and mid aspect of the right and left ureter are dilated to the level of the pelvis. There likely is some degree of compression of the right and left ureter from the enlarged fibroid uterus. 4. Cholelithiasis without evidence of acute cholecystitis. 5. Uterus is markedly enlarged. There are numerous intramural and subserosal masses throughout the uterus. Numerous calcified masses are present within the uterus. The uterus measures up to 11.8 x 11.6 x 9.0 cm. Findings most compatible with enlarged leiomyomatous uterus. Evaluation is limited with CT imaging. Follow-up nonurgent pelvic ultrasound should be considered. Gynecology consultation is also recommended given partial obstruction of the right and left kidney. 6. Previously seen small nodules within the right and left lower lobe appear unchanged. Small 3 mm nodule within the lingula is new. For patients at low risk (minimal or absent history of smoking and of other known risk factors), no routine follow-up is indicated. For patients at high risk (history of smoking or of other known risk factors), consider optional CT Chest at 12 months. (Reference: Deepika) 7. 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 COMMENTS: Consistent with the [employer]'s Incidental Findings Committee white paper (J Am Konrad Radiol 2018): Any incidental renal lesion less than 1 cm or classified as too small to characterize, or any incidental cystic renal lesion characterized as simple-appearing, is likely benign. No follow-up imaging is recommended for these lesions per consensus recommendations based on imaging criteria. REFERENCES: Deepika Kwok, et al. Guidelines for Management of Incidental Pulmonary Nodules Detected on CT Images: From the [employer] 2017. Radiology. 2017;284(1):228-243.
--- NOTE | 2025-05-29 15:18 | CT_ITS ---
PROCEDURE INFORMATION: Exam: CT Cervical Spine Without Contrast Exam date and time: 05/29/2025 4:21 PM Age: 70 years old Clinical indication: Injury or trauma; Fall; Blunt trauma; Additional info: Fall, L facial bruising, AMS TECHNIQUE: Imaging protocol: Computed tomography of the cervical spine without contrast. Radiation optimization: All CT scans at this facility use at least one of these dose optimization techniques: automated exposure control; mA and/or kV adjustment per patient size (includes targeted exams where dose is matched to clinical indication); or iterative reconstruction. COMPARISON: CT ANGIO NECK 03/31/2025 7:51 AM FINDINGS: Limitations: Exam is motion limited. Bones: Cervical lordosis is maintained. Posterior elements are aligned. Mild retrolisthesis C4 on C5. Mild anterolisthesis C2 on C3. Vertebral body heights are maintained. No acute fracture. Multilevel degenerative changes with loss of disc height from C3-C7. Facet arthrosis and uncovertebral joint spurring contributes to varying degrees of bilateral foraminal narrowing. No significant spinal canal stenosis. Evaluation of spinal canal contents is limited with CT technique. Craniocervical junction is maintained. Degenerative changes at the atlantoaxial joint. Atlantodental interval is roughly symmetric considering patient positioning. Lungs: Lung apices are normal. Soft tissues: Prevertebral and paraspinal soft tissues are unremarkable. IMPRESSION: Within limitations of motion, no obvious acute cervical spine fracture.
--- NOTE | 2025-05-29 15:18 | CT_ITS ---
PROCEDURE INFORMATION: Exam: CTA Chest With Contrast Exam date and time: 05/29/2025 4:23 PM Age: 70 years old Clinical indication: Other: R upper abd/r lower chest pain, found down TECHNIQUE: Imaging protocol: Computed tomographic angiography of the chest with contrast. Exam focused on the arteries. 3D rendering (Not supervised by radiologist): MIP and/or 3D reconstructed images were created by the technologist. Radiation optimization: All CT scans at this facility use at least one of these dose optimization techniques: automated exposure control; mA and/or kV adjustment per patient size (includes targeted exams where dose is matched to clinical indication); or iterative reconstruction. Contrast material: ISO; Contrast volume: 70 ml; Contrast route: INTRAVENOUS (IV); COMPARISON: 1. CT ANGIO CHEST 01/03/2025 11:33 AM 2. CR XR CHEST PORTABLE 03/31/2025 7:29 AM FINDINGS: Limitations: Respiratory motion. Pulmonary arteries: Main pulmonary artery is normal in caliber. No central or segmental pulmonary embolism. Motion artifact limits evaluation for more peripheral pulmonary embolism, particularly within the left lower lobe. Aorta: Normal caliber of the ascending and descending thoracic aorta. No evidence for dissection. Scattered atherosclerotic plaque. Dense atherosclerotic plaque is present at the origins of the great vessels. Moderate to high-grade stenosis at the origin of the left subclavian artery. Left subclavian artery remains patent. Celiac and mesenteric arteries: Dense atherosclerotic plaque and high-grade stenosis of the origin of the superior mesenteric artery. Dense calcified plaque of the right and left renal ostium. Visualized portion of the upper abdominal aorta demonstrates dense peripheral atherosclerotic plaque. Thyroid: Small 9 mm nodule along the inferior medial aspect of the left lobe of the thyroid. Lungs: Patchy areas of ground-glass airspace opacity, septal thickening and nodularity are present within the mid and superior aspect of the right upper lobe. Findings suggestive of postinfectious or postinflammatory change. Similar appearing scattered areas of ground-glass airspace opacity, septal thickening and nodularity are present within the left upper lobe. Findings also more compatible with postinfectious or postinflammatory change. 6 mm nodule within the superior segment of the right lower lobe (image 42 of series 5) is unchanged. Small 3 mm nodule is present within the anterolateral aspect of the right middle lobe (image 62 of series 5). 5 mm subpleural nodule within the right lower lobe (image 62 of series 5) likely has not significantly changed. There are new additional scattered areas of subpleural nodularity and patchy ground-glass airspace opacity within the periphery of the right lower lobe. Small less than 3 mm nodule within the lingula (image 63 of series 5). Pleural spaces: No significant pleural effusion. No pneumothorax. Heart: Heart size is upper limits for normal. No pericardial effusion. Coronary arteries: No dense coronary artery calcifications. Mediastinal space: No mediastinal mass or fluid collection. No enlarged or suspicious mediastinal lymph nodes. No hilar mass. Lymph nodes: No suspicious axillary lymphadenopathy or mass. No supraclavicular lymphadenopathy. Diaphragm: Small hiatal hernia. Liver: Hepatic steatosis. Gallbladder and biliary ducts: Gallbladder is partially contracted. Apparent mild gallbladder wall thickening may be secondary to contraction of the gallbladder. There are small stones present within the gallbladder. No surrounding inflammatory change. Pancreas: Pancreas appears unremarkable. Adrenal glands: Low-density nodular fullness of the right and left adrenal gland is unchanged. Intraperitoneal space: No free fluid or free intraperitoneal air within the upper abdomen. Bones/joints: Mild scoliosis. No acute osseous abnormality. Advanced degenerative changes are present within the lower cervical spine. Multilevel [id number] degenerative changes are present throughout the thoracic spine. No acute fracture or suspicious bone lesion. Soft tissues: Unremarkable. IMPRESSION: 1. Main pulmonary artery is normal in caliber. No large central or segmental pulmonary embolism. Motion artifact limits evaluation for more peripheral pulmonary embolism. If there remains high clinical concern for pulmonary embolism, repeat examination or V/Q scan could be considered. 2. Multifocal areas of patchy ground-glass airspace opacity, septal thickening and slight nodularity are present within the right and left lung as described. This is most pronounced within the right upper lobe. Additional scattered small pulmonary nodules are present. Findings may correspond to postinflammatory or postinfectious process. No large dense airspace consolidation. There are a few additional scattered new pulmonary nodules. Please correlate with any prior history of smoking or malignancy. Surveillance imaging should be considered to verify complete resolution. 3. Previously seen pulmonary nodules within the right and left lung are unchanged. 4. Atherosclerotic plaque of the aortic arch. Moderate to high-grade stenosis at the origin of the left subclavian artery. 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 5. Hepatic steatosis. 6. Cholelithiasis. Gallbladder is contracted. 7. Other incidental and nonemergent findings are discussed above.
--- NOTE | 2025-05-29 15:24 | ED_ITS ---
Discharge Plan Disposition Patient Disposition: Admitted Condition: Fair Clinical Impressions Clinical Impression: Gallstones, Alcohol abuse, Weakness, Lactic acidosis, Fall, Lung nodules, Ground glass opacity present on imaging of lung, Superior mesenteric artery stenosis, Subclavian artery stenosis, Uterine fibroid, Hydronephrosis, Hypomagnesemia Discharge ED Provider: Salome Knox HPI General Chief Complaint: Fall Stated Complaint: weakness,ETOH Time Seen by Provider: 05/29/25 15:13 History of Present Illness HPI narrative: This patient is a 70-year-old female with a history of alcohol use disorder, hypothyroidism, malnutrition, failure to thrive presenting to the emergency department after being found down. According to EMS, the patient's found her down on the ground and called EMS. Patient is currently alert and oriented x 4, but she does not remember what happened. She states she is not sure when she fell or how long she has been on the ground. She states she is having right lower chest/upper abdominal pain at this time and overall does not feel well. There is concern that her last drink may have been yesterday. Again, she does not provide any further history. Per EMS, vitals were stable and route with exception of mild tachycardia. On medical record review, she is evaluated here in the emergency department for altered mental status after being found down March 2025, at which point she was intubated and actually transferred to higher level of care with concern for altered mental status in the setting of alcohol withdrawal. Related Data Previous Rx's ?Medication ?Instructions ?Recorded pantoprazole 40 mg tablet,delayed 40 mg PO HS 30 days #30 tabs 09/14/24 release levothyroxine 75 mcg tablet 75 mcg PO DAILY #30 tabs 0 01/04/25 (Synthroid) Allergies Allergy/AdvReac Type Severity Reaction Status Date / Time No Known Allergies Allergy Verified 07/26/24 16:27 [facility] Disclaimer: The information contained in this section may have been updated after the patient was seen, as this information can be updated by other users. Medical History (Updated 05/29/25 @ 22:36 by Salome Calloway APRN) GERD (gastroesophageal reflux disease) Hypothyroid Alcohol intoxication Encounter for social work intervention Thrombocytopenia Hypokalemia Ground-level fall Surgical History History of tubal ligation Family History Other No significant family history Social History Smoking Status: Current every day smoker alcohol intake: current substance use type: denies use current occupational status: unemployed Travel in the last 8 weeks?: None housing: house Have you lived/traveled outside US in past 30 days?: No Contact w/someone who lives/traveled outside US past 30 days?: No Exposure to someone with infectious disease in past 14 days?: No Do you have a fever (greater than 100.4 F or 38 C)?: No Have you tested positive for COVID-19?: No Exposed to someone with COVID-19 in past 14 days?: No Do you have a sore throat?: No Do you have a cough?: No Do you have any weakness?: No Are you experiencing any nausea/vomitting?: No Do you have any diarrhea?: No Are you experiencing any unusual bleeding?: No Do you have any muscle aches/pain?: No Do you have any abdominal pain?: No Are you experiencing loss of taste or smell?: No Other Medical History Have you received the Flu Vaccine for this season: No Have you received the Pneumonia Vaccine: No ROS Obtained: Yes All systems reviewed & no additional complaints except as documented Physical Exam General General appearance: alert Comment: Chronically ill-appearing, mildly tremulous. Periorbital ecchymosis to the left eye Head Head exam: normocephalic and other (Periorbital ecchymosis to the left eye) Eye Eye exam: Present normal appearance, PERRL and EOMI ENT ENT exam: Present normal exam and normal oropharynx Neck Neck exam: Present normal inspection Chest Chest inspection: Present normal inspection, symmetric chest wall rise and tenderness (Mild right lower chest wall tenderness) Respiratory Respiratory exam: Present normal lung sounds bilaterally; Absent respiratory distress Cardiovascular Cardiovascular exam: Present normal rhythm; Absent regular rate (Tachycardic) Abdominal Exam Abdominal exam: Present soft and tenderness (Mild right upper abdominal tenderness); Absent distention Extremities Exam Extremities exam: Present normal inspection and full ROM; Absent tenderness Back Exam Back exam: Present normal inspection Neurological Exam Neurological exam: Present alert, oriented X3 and other (Tremulous, generally weak without any focal deficits) Psychiatric Psychiatric exam: Present anxious Skin Skin exam: Present warm and dry Other Other exam information: Initial CIWA score 11 HEART Score HEART Score HEART Score assessment performed?: Yes History (anamnesis): Slightly suspicious ECG: Normal Age: >65 years Risk factors: 1-2 risk factors Troponin: </= normal limit HEART Score: 3 Critical Care Critical Care Time Critical Care Time: Yes Attestation: On 05/29/25, the high probability of a clinically significant, sudden or life threatening deterioration of the following system(s) required my full and direct attention, intervention and personal management. The time I documented below is in addition to time spent performing reported procedures but includes the following listed in this critical care notation. Total Time Total Critical Care Time: 35 Medical Decision Making Christopher Inquiry Pt receiving controlled substance: No Vital Signs Vital Signs: 05/29/25 15:24 05/29/25 16:00 05/29/25 16:30 Temperature 98.4 F Temperature Source Oral Pulse Rate 99 H Pulse Rate [Right Radial] 92 H Respiratory Rate 18 Blood Pressure 132/64 145/85 H Blood Pressure [Right Arm] 141/74 H Blood Pressure Mean 103 Blood Pressure Mean [Right Arm] 96 Blood Pressure Source [Right Arm] Automatic Cuff Blood Pressure Position [Right Arm] Sitting 02 Sat by Pulse Oximetry 99 94 L Oxygen Delivery Method Room Air 05/29/25 17:00 05/29/25 17:30 05/29/25 18:01 Temperature Temperature Source Pulse Rate 92 H 87 104 H Pulse Rate [Right Radial] Respiratory Rate Blood Pressure 145/78 H 131/69 137/78 Blood Pressure [Right Arm] Blood Pressure Mean Blood Pressure Mean [Right Arm] Blood Pressure Source [Right Arm] Blood Pressure Position [Right Arm] 02 Sat by Pulse Oximetry 99 94 L 97 Oxygen Delivery Method Room Air Lab Data Labs: Lab Results 05/29/25 15:18: VBG pH 7.37, VBG pCO2 38.4, VBG pO2 47.4 H, VBG HCO3 21.8 L, VBG Total CO2 22.9 L, VBG O2 Saturation 77.0 H, VBG Base Excess -3.5 L, VBG Lactic Acid 6.0 H 05/29/25 15:20: WBC 3.8 L, RBC 3.73 L, Hgb 11.0 L, Hct 33.1 L, MCV 88.7, MCH 29.5, MCHC 33.2, RDW 16.1, Plt Count 111 L, MPV 8.7, Neut % (Auto) 69.5, Lymph % (Auto) 22.7, [place] % (Auto) 5.7, Eos % (Auto) 1.0, Baso % (Auto) 0.8, Neut # (Auto) 2.7, Lymph # (Auto) 0.9, [place] # (Auto) 0.2, Eos # (Auto) 0.0, Baso # (Auto) 0.0, PT 12.8 H, INR 1.17 H, APTT 26.9, Sodium 139, Potassium 4.1, Chloride 103, Carbon Dioxide 21 L, Anion Gap 19.1 H, BUN 14, Creatinine 0.70, Estimated Creat Clear 49, Estimated GFR 83, Est GFR ( Amer) 101, Glucose 111 H, Calcium 10.3 H, Phosphorus 3.2, Magnesium 1.1 L, Total Bilirubin 0.7, AST 63 H, ALT 35, Alkaline Phosphatase 196 H, Total Creatine Kinase 39, Troponin I < 0.01, Total Protein 7.8, Albumin 4.4, Globulin 3.4 H, Albumin/Globulin Ratio 1.3, Lipase 28, TSH 2.55, Thyroxine (T4) 6.4, Plasma/Serum Alcohol 307 H 05/29/25 16:44: Urine Color Yellow, Urine Appearance Clear, Urine pH 5.5, Ur Specific [place] 1.025, Urine Protein 2+ A, Urine Glucose (UA) Negative, Urine Ketones 1+, Urine Blood 1+ A, Urine Nitrate Negative, Urine Bilirubin Negative, Urine Urobilinogen 0.2, Ur Leukocyte Esterase Negative, Urine RBC None, Urine WBC 3-5, Ur Squamous Epith Cells None, Urine Bacteria Trace, Urine Opiates Screen Negative, Urine Methadone Screen Negative, Ur Barbituates Screen Negative, Ur Phencyclidine Scrn Negative, Ur Amphetamines Screen Negative, U Benzodiazepines Scrn Negative, Urine Cocaine Screen Negative, U Marijuana (THC) Screen Negative 05/29/25 18:13: Lactate 3.1 H, Troponin I < 0.01 05/29/25 15:20 05/29/25 15:20 Response Orders (Tests/Meds): ED MEDICATIONS Generic Name Dose Route Start Last Admin Trade Name Freq PRN Reason Stop Dose Admin Acetaminophen 650 mg 12/17/25 19:52 Acetaminophen 325mg Tab PO 06/28/25 19:51 Q4HP PRN Fever or Mild Pain (1-3) Diazepam 10 mg 05/29/25 15:21 Diazepam 10mg/2ml Syringe IV 06/28/25 15:20 Q1HP PRN CIWA >16 Diazepam 5 mg 05/29/25 15:21 05/29/25 16:38 Diazepam 5mg Tablet PO 06/28/25 15:20 5 mg Q1HP PRN Administration CIWA Score 8-15 Diazepam 5 mg 05/29/25 15:21 05/29/25 22:17 Diazepam 5mg Tablet PO 06/28/25 15:20 5 mg Q6HP PRN Administration CIWA 2-7 Sodium Chloride 1,000 mls @ 75 mls/hr 05/29/25 22:00 05/29/25 22:18 Sod Chlor 0.9% 1000ml Bag IV 06/28/25 21:59 75 mls/hr .[id number] HARRY Administration Nicotine 21 mg 05/29/25 22:20 05/29/25 22:19 Nicotine 21mg/24hr Patch TD 06/28/25 22:19 21 mg DAILY HARRY Administration Ondansetron HCl 4 mg 05/29/25 19:52 05/29/25 22:18 Ondansetron 4mg/2ml Vial IV 06/28/25 19:51 4 mg Q8HP PRN Administration Nausea Pantoprazole Sodium 40 mg 05/29/25 21:00 05/29/25 22:17 Pantoprazole 40mg Tablet PO 06/28/25 20:59 40 mg HS HARRY Administration Sodium Chloride 10 ml 05/29/25 19:52 Sodium Chloride 0.9% 10ml Flush Syringe IV 06/28/25 19:51 NEEDED PRN Maintain IV Site Discontinued Medications Generic Name Dose Route Start Last Admin Trade Name Freq PRN Reason Stop Dose Admin Folic Acid 1 mg 05/29/25 15:21 05/29/25 16:38 Folic Acid 1mg Tablet PO 05/29/25 15:22 1 mg ONCE ONE Administration Multivitamins 10 ml/ Thiamine 1,015 mls @ 150 mls/hr 05/29/25 15:30 05/29/25 18:02 HCl 100 mg/ Magnesium Sulfate IV 05/29/25 22:15 Infused 2 gm/ Lactated Ringer's .[id number] HARRY Infusion Sodium Chloride 1,000 mls @ 999 mls/hr 05/29/25 15:37 05/29/25 18:03 Sod Chlor 0.9% 1000ml Bag IV 05/29/25 16:37 Infused .Q1H1M ONE Infusion Magnesium Sulfate 2 gm in 50 mls @ 50 mls/hr 05/29/25 15:58 05/29/25 18:03 Magnesium Sulfate 2gm/50ml Premix IV 05/29/25 16:57 Infused ONCE ONE Infusion Sodium Chloride 1,000 mls @ 75 mls/hr 05/29/25 20:00 Sod Chlor 0.9% 1000ml Bag IV 06/28/25 19:59 .[id number] HARRY Iopamidol 70 ml 05/29/25 16:23 05/29/25 16:24 Iopamidol-370 (76%);100ml Bottle IV 05/29/25 16:24 70 ml ONCE ONE Administration Ondansetron HCl 4 mg 05/29/25 15:24 05/29/25 16:39 Ondansetron 4mg/2ml Vial IV 05/29/25 15:25 4 mg ONCE ONE Administration Sodium Chloride 10 ml 05/29/25 16:23 05/29/25 16:24 0.9 % Sodium Chloride 50 Ml Vial IV 05/29/25 16:24 10 ml ONCE ONE Administration ORDERS Category Date Time Status CT abdomen pelvis w con Stat Cat Scan 05/29/25 15:[address] angio chest PE protocol Stat Cat Scan 05/29/25 15:[address] cervical spine wo con Stat Cat Scan 05/29/25 15:[address] head/brain wo con Stat Cat Scan 05/29/25 15:18 Completed Consult [employer] Manager [CONS] Routine Cons 05/29/25 15:51 Active Activated Partial Thrombo Time Stat Lab 05/29/25 15:20 Completed CBC w/Auto Diff [Complete Blood Count Auto Diff] Stat Lab 05/29/25 15:20 Completed CK [Creatine Kinase] Stat Lab 05/29/25 15:20 Completed CMP [Comprehensive Metabolic Panel] Stat Lab 05/29/25 15:20 Completed Ethanol [Ethyl Alcohol] Stat Lab 05/29/25 15:20 Completed Lactic Acid Stat Lab 05/29/25 18:13 Completed Lipase Stat Lab 05/29/25 15:20 Completed MAG [Magnesium] Stat Lab 05/29/25 15:20 Completed PHOS [Phosphorous] Stat Lab 05/29/25 15:20 Completed Prothrombin Time INR Stat Lab 05/29/25 15:20 Completed T4 (Thyroxine) Stat Lab 05/29/25 15:20 Completed TSH [Thyroid Stimulating Hormone] Stat Lab 05/29/25 15:20 Completed Trop I [Troponin I] Stat Lab 05/29/25 15:20 Completed Troponin I Q3H Lab 05/29/25 18:13 Completed Troponin I Q3H Lab 05/29/25 21:37 Completed UA [Urinalysis and Microscopic] Stat Lab 05/29/25 16:44 Completed UDS [Drug Screen,Urine] Stat Lab 05/29/25 16:44 Completed VBG [Venous Blood Gas] Stat RT 05/29/25 15:18 Completed ECG Data Tracing #1: Attestation: I reviewed this ECG and interpreted as documented below: ECG Narrative: I independently interpreted EKG at 1615 and noted sinus rhythm with a ventricular rate of [address]/T wave changes without acute STEMI noted. ECG initial impression date: 05/29/25 ECG initial impression time: 16:15 MDM Narrative Medical Decision Narrative: In summary, this patient is a 70-year-old female presenting to the Emergency Department for evaluation after being found down. Differential diagnoses considered include but are not limited to traumatic injury from fall, intracranial hemorrhage, alcohol intoxication, alcohol withdrawal, electrolyte derangements, ACS. Ruling out the most morbid conditions drove assessment. It should be noted patient's history includes alcohol abuse, hypothyroid, failure to thrive, malnutrition which are not at goal therapy. This complicates all aspects of care by increasing patient's risk for morbidity. I reviewed patient's past medical records and noted prior evaluations in the ED for alcohol related complaints, with recent evaluation requiring intubation as detailed in HPI. On exam, the patient is tremulous and mildly anxious appearing. She has left periorbital ecchymosis as well as mild right lower chest wall tenderness, mild right upper quadrant tenderness. She is mildly tachycardic, but otherwise vitals are reassuring. Workup included lab evaluation to evaluate for infectious, metabolic, cardiac derangements as a cause of current presentation as well as CT head, CT C-spine, CTA chest, CT abdomen pelvis with IV contrast. EKG obtained is reassuring. Patient was given rally pack with thiamine, folate, electrolyte repletion. She was placed on CIWA protocol. On subsequent reassessments, the patient is doing better after diazepam. Labs obtained demonstrate mild leukopenia, which appears to have been present on prior labs as well. She also has mild anemia. INR slightly elevated in the setting of chronic alcohol abuse. VBG demonstrates an lactic acidosis. Fluid resuscitation is ongoing. Repeat lactic acid is improved. She has mildly elevated anion gap in the setting of lactic acidosis. She has hypomagnesemia. She is receiving a rally pack, and additional IV magnesium repletion was ordered. AST greater than ALT in the setting of alcohol abuse. I independently turbid CT prior to radiology read and noted no obvious acute traumatic injury. She does have multiple incidental findings, including pulmonary nodules, ground glass opacities, mild bilateral hydronephrosis, enlarged uterus concerning for possible large fibroids. I advised patient of all of these incidental things and recommended outpatient follow-up. Ultimately for her general weakness, hypomagnesemia, alcohol abuse with concern for current withdrawal, I feel she benefit from admission. I had an interactive discussion with the hospitalist who admitted the patient in stable condition.
[2025-05-29 15:30] LABS: VBG HCO3 21.8 mmol/L (23-30); VBG PCO2 38.4 mmol/L (35-51); VBG PH 7.37 mmol/L (7.31-7.41); VBG PO2 47.4 mmol/L (28-40)
[2025-05-29 15:35] LABS: Lactate Venous 6.0 mmol/L (0.4-2.0)
[2025-05-29 15:40] LABS: Alanine Aminotransferase 35 U/L (12-78); Albumin Level 4.4 g/dl (3.5-5.0); Albumin/Globulin Ratio 1.3 (1.1-1.8); Alkaline Phosphatase 196 U/L (38-126); Anion Gap 19.1 mEq/L (5-15); Aspartate Amino Transferase 63 U/L (14-36); Bilirubin,Total 0.7 mg/dl (0.2-1.3); Blood Urea Nitrogen 14 mg/dl (7-17); Calcium 10.3 mg/dl (8.4-10.2); Carbon Dioxide 21 mmol/L (22.0-30.0); Chloride 103 mmol/L (98-107); Creatine Kinase 39 U/L (30-135); Creatinine Clearance Estimated 49 mL/min (50-200); Creatinine,Serum 0.70 mg/dl (0.52-1.04); Estimated Glomerular Filt Rate 83 ml/min (>60); GFR (African American) 101 ML/MIN (>60); Globulin 3.4 g/dL (1.3-3.2); Glucose 111 mg/dl (74-100); Lipase 28 U/L (23-300); Magnesium 1.1 mg/dl (1.6-2.3); Phosphorous 3.2 mg/dl (2.5-4.5); Potassium 4.1 mmoL/L (3.5-5.1); Sodium 139 mmol/L (136-145); Total Protein,Serum 7.8 g/dl (6.3-8.2)
[2025-05-29] MEDS: MVI, ADULT NO.1 WITH VIT K 10 ML, THIAMINE HCL 100 MG, MAGNESIUM SULFATE 2 GM in LACTAT... 150 ML IV (15:40)
[2025-05-29 15:44] LABS: Activated Partial Thrombo Time 26.9 seconds (22.8-30.6); INR 1.17 (0.9-1.1); Prothrombin Time 12.8 seconds (10.1-12.5)
[2025-05-29 15:45] LABS: Hematocrit 33.1 % (37.0-47.0); Hemoglobin 11.0 g/dL (12.2-16.2); Immature Granulocytes % 0.3 %; Mean Corpuscular HGB Conc 33.2 g/dL (31.8-35.4); Mean Corpuscular Hemoglobin 29.5 pg (27.0-31.2); Mean Corpuscular Volume 88.7 fl (81-99); Nucleated Red Blood Cells % 0 %; Platelet Count 111 K/mm3 (142-424); Red Blood Count 3.73 M/mm3 (4.20-5.40); Red Cell Distribution Width-SD 51.9 fL; White Blood Count 3.8 K/mm3 (4.8-10.8)
[2025-05-29 15:53] LABS: Troponin I < 0.01 ng/ml (0.00-0.034)
[2025-05-29 15:57] LABS: T4 (Thyroxine) 6.4 ug/dl (5.53-11.0)
--- NOTE | 2025-05-29 16:06 | ECG_ITS ---
APPROVED REPORT Exam: Resting ECG HR:85 bpm ECG Measurements Heart Rate 85 AXES GA 186 P 76 QRSd 102 QRS 47 QT 379 T 61 QTc 421 Conclusion SINUS RHYTHM LOW QRS VOLTAGE IN PRECORDIAL LEADS [QRS DEFLECTION < 1.0 mV IN CHEST LEADS] POSSIBLE ANTERIOR MYOCARDIAL INFARCTION , OF INDETERMINATE AGE [30 ms Q WAVE IN V3/V4, OR R < 0.2 mV IN V4] POSSIBLE INFERIOR MYOCARDIAL INFARCTION , OF INDETERMINATE AGE [30 ms Q WAVE IN II/aVF] ABNORMAL ECG UNCONFIRMED REPORT Electronically signed by : SORIN ALBARRAN, 05/31/2025 07:01:06
[2025-05-29 16:11] LABS: Thyroid Stimulating Hormone 2.55 uIU/mL (0.465-4.68)
[2025-05-29] MEDS: 0.9 % SODIUM CHLORIDE 50 ML VIAL 10 ML IV (16:24)
[2025-05-29] MEDS: IOPAMIDOL-370 (76%);100ML BOTTLE 70 ML IV (16:24)
[2025-05-29] MEDS: diazePAM 5MG TABLET 5 MG PO ×2 (16:38→22:17)
[2025-05-29] MEDS: FOLIC ACID 1MG TABLET 1 MG PO (16:38)
[2025-05-29] MEDS: ONDANSETRON 4MG/2ML VIAL 4 MG IV ×2 (16:39→22:18)
[2025-05-29] MEDS: MAGNESIUM SULFATE IN WATER 2 GM/50 ML PIGGYBACK IV (16:39)
[2025-05-29] MEDS: 0.9 % SODIUM CHLORIDE 1000ML 1,000 ML 999 ML IV (16:39)
--- OUTSIDE RECORDS SUMMARY | 2025-05-29 16:50 | XMS_ITS | Encounter Summary ---
Author Organization [facility] Address [address] [place] [address] Care Team Providers Care Librarian Name Role Phone Provider, No Known Primary Care Provider Unavail able Encounter Details Date Type Department Care Team (Latest Contact Info) Description 03/31/2025 Travel Social History Tobacco Use Types Packs/Day Years [...] and heating? Not hard at all 04/01/2025 [facility] - Occupational Stress [...] things needed for daily living? No 04/01/2025 [facility] Utilities Answer Date Recorded In the past 12 months has th e electric, gas, oil, or water company threatened to shut off services in your home? No 04/01/2025 Housing Stability Answer Date Recorded Current Living Arrangements home 03/14 Potentially Unsafe Housing Conditions none 04/01/2025 Family and Community Support Answer Gregg e [...] do not need or want help 04/01/2025 Education Answer Date Recorded Do you want [...] 2:30 PM EDT Office Visit [facility] [address] [facility] [place] [address] Radha Morales, GIOVANI [address] [place] [id number] documented as of this encounter Visit Diagnoses Not on filedocumented in this encounter Care Teams Librarian Relationship Specialty Start Date End Date Provider, [place] [address] PCP - General 03/31/25 documented as of this encounter
--- OUTSIDE RECORDS SUMMARY | 2025-05-29 16:50 | XMS_ITS | Clinical Summary ---
Author Organization [facility] Address [address] [place] [address] Care Team Providers Care Dining Room Coordinator Name Role Phone Provider, No Known Primary Care Provider Unavail able Allergies No known active allergies Medications acetaminophen (TYLENOL) 325 MG tablet Take 2 tablets by mouth 3 times a day. Active folic acid (FOLVITE) 1 MG tablet Take 1 tablet by mouth Daily. Active enoxaparin sodium (LOVENOX) 40 MG/0.4ML solution prefilled syringe syringeIndicati ons:VTE Prophylaxis Inject 0.4 mL under the skin into the appropriate area as directed Daily. Indications: Prevention of Unwanted Clot in Veins Active levETIRAcetam (KEPPRA) 250 MG tablet Take 1 tablet by mouth 2 (Two) Times a Day. Active multivitamin (THERAGRAN) tablet tablet Take 1 tablet by mouth Daily. Active nicotine (NICODERM CQ) 21 MG/24HR patch Place 1 patch on the skin as directed by provider Daily. Active pantoprazole (PROTONIX) 40 MG EC tablet Take 1 tablet by mouth Every Morning Before Breakfast. Active sennosides-docu sate (PERICOLACE) 8.6-50 MG per tablet Take 2 tablets by mouth 2 (Two) Times a Day. Active polyethylene glycol (MIRALAX) 17 g packet Take 17 g by mouth Daily As Needed (Use if senna-docusate is ineffective). Active bisacodyl (DULCOLAX) 5 MG EC tablet Take 1 tablet by mouth Daily As Needed for Constipation (Use if polyethylene glycol is ineffective). Active bisacodyl (DULCOLAX) 10 MG suppository Insert 1 suppository into the rectum Daily As Needed for Constipation (Use if bisacodyl oral is ineffective). Active thiamine (VITAMIN B1) 100 MG tablet Take 1 tablet by mouth Daily. Active Diclofenac Sodium (VOLTAREN) 1 % gel gel Apply 2 Applications topically to the appropriate area as directed 3 (Three) Times a Day. Active Active Problems No known active problems Resolved Problems Problem Noted Date Diagnosed Date Resolved Date Seizure 03/31/2025 04/09/2025 Aspiration pneumonitis -aspi ration pneumonitis versus pneumonia 03/31/2025 04/09/2025 Acute hypoxemic respiratory failure -noted from outside hospital where she was intubated. 03/31/2025 04/09/2025 Alcohol dependence with with drawal delirium -presented with seizures concerning for potential alcohol withdrawal 03/31/2025 04/09/2025 Anemia -uncertain etiology or chronicity 03/31/2025 04/09/2025 Encounters Date Type Department Care Team Description 04/07/2025 10:35 AM EDT Ancillary Procedure [facility] IP SPEECH PATH [address] [place] [address] 04/02/2025 1:15 PM EDT Ancillary Procedure [facility] IP SPEECH PATH [address] [place] [address] 03/31/2025 10:18 AM EDT - 04/09/2025 11:26 AM EDT Hospital Encounter [facility] [address] [place] [address] Pk Mckeon MD Mini, MD Buster Davis Kathryn E, MD Oropharyngeal dysphagia (Primary Dx); Acute pain of right shoulder Discharge Disposition: Rehab Facility or Unit (DC - External) 03/31/2025 Travel from Last 3 Months Family History Medical History Relation Name Comments Seizures Father Relation Name Status Comments Father Parent Alive Social History Tobacco Use Types Packs/Day Years [...] and heating? Not hard at all 04/01/2025 [facility] - Occupational Stress [...] things needed for daily living? No 04/01/2025 [facility] Utilities Answer Date Recorded In the [...] GED or equivalent No 04/01/2025 Preferred Language Danish 04/01/2025 Comments Unknown Sex and Gender Information [...] Mass Index 22.48 03/31/2025 2:00 PM EDT Plan of Treatment Upcoming Encounters Date Type Department Care Team (Late st Contact Info) Description 09/19/2025 2:30 PM EDT Office Visit [facility] [address] [facility] [address] [place] [address] Radha Morales, MULTICULTURAL SERVICES LIBRARIAN [address] [facility] [address] [place] [address] Health Maintenance Due Date Last Done Comments DXA SCAN 1955 Pneumococcal Vaccine 50+ (1 of 2 - PCV) 01/27/1976 TDAP/TD VACCINES (1 - Tdap) 01/27/1976 MAMMOGRAM 1997 COLOGUARD 2002 COLON CANCER SCREENING 5 YEAR SIGMOIDOSCOPY 2002 COLONOSCOPY 2002 COLORECTAL CANCER SCREENING 2002 CT COLONOGRAPHY 2002 FECAL OCCULT BLOOD TEST 2002 FIT Testing (1 year) 2002 ZOSTER VACCINE (1 of 2) 2007 INFLUENZA VACCINE 01/11/2025 COVID-19 Vaccine ( - season) 2025 ANNUAL PHYSICAL 04/02/2025 HEPATITIS C SCREENING 04/02/2025 Procedures Procedure Name Priority Date/Time Associated Diagnosis Comments POCT GLUCOSE FINGERSTICK Routine 04/08/2025 4:27 PM EDT POCT GLUCOSE FINGERSTICK Routine 04/08/2025 8:21 AM EDT POCT GLUCOSE FINGERSTICK Routine 04/07/2025 4:52 PM EDT HOGSHEAD INSPECTOR FEES FIBEROPTIC ENDO EVAL SWALLOW Routine 04/07/2025 [...] FINGERSTICK Routine 04/06/2025 11:52 AM EDT CBC AND DIFFERENTIAL Routine 04/06/2025 9:07 AM EDT CBC WITH AUTO DIFFERENTIAL Routine 04/06/2025 9:07 AM EDT COMPREHENSIVE [...] EDT AMMONIA STAT 04/03/2025 10:36 AM EDT HOGSHEAD INSPECTOR FEES FIBEROPTIC ENDO EVAL SWALLOW Routine 04/03/2025 8:23 AM EDT POCT GLUCOSE FINGERSTICK Routine 04/03/2025 5:21 AM EDT CBC (NO DIFF) Routine 04/03/2025 3:49 AM EDT BASIC METABOLIC PANEL Routine 04/03/2025 3:49 AM EDT PHOSPHORUS Routine 04/03/2025 3:49 AM EDT MAGNESIUM Routine 04/03/2025 3:49 AM EDT POCT GLUCOSE FINGERSTICK Routine 04/02/2025 11:38 PM EDT POCT GLUCOSE FINGERSTICK Routine 04/02/2025 5:48 PM EDT POCT GLUCOSE FINGERSTICK Routine 04/02/2025 11:57 AM EDT PHOSPHORUS Add-On 04/02/2025 8:10 AM EDT MAGNESIUM Add-On 04/02/2025 8:10 AM EDT BASIC METABOLIC PANEL Routine 04/02/2025 8:10 AM EDT CBC (NO DIFF) Routine 04/02/2025 8:10 AM EDT POCT GLUCOSE [...] AND SCREEN STAT 03/31/2025 3:22 PM EDT VITAMIN B12 STAT 03/31/2025 3:22 PM EDT FOLATE STAT 03/31/2025 3:22 PM EDT EEG AWAKE OR DROWSY PORTABLE STAT 03/31/2025 2:20 PM EDT MRSA DNA PROBE Routine 03/31/2025 2:09 PM EDT XR ABDOMEN KUB STAT 03/31/2025 12:58 PM EDT BLOOD CULTURE STAT 03/31/2025 12:40 PM EDT BLOOD CULTURE STAT 03/31/2025 12:28 PM EDT ABORH 2ND SPECIMEN VERIFICATION STAT 03/31/2025 12:04 PM EDT RETICULOCYTES STAT 03/31/2025 12:04 PM EDT FERRITIN STAT 03/31/2025 12:04 PM EDT IRON PROFILE STAT 03/31/2025 12:04 PM EDT T4, FREE STAT 03/31/2025 12:04 PM EDT AMMONIA STAT 03/31/2025 12:04 PM EDT TSH RFX ON ABNORMAL TO FREE T4 STAT 03/31/2025 12:04 PM EDT PROCALCITONIN STAT 03/31/2025 12:04 PM EDT PHOSPHORUS STAT 03/31/2025 12:04 PM EDT MAGNESIUM STAT 03/31/2025 12:04 PM EDT LACTIC ACID, PLASMA STAT 03/31/2025 1 2:04 PM EDT HEMOGLOBIN A1C STAT 03/31/2025 12:04 PM EDT COMPREHENSIVE METABOLIC PANEL STAT 03/31/2025 12:04 PM EDT CK STAT 03/31/2025 12:04 PM EDT CBC WITH AUTO DIFFERENTIAL STAT 03/31/2025 12:04 PM EDT B-TYPE NATRIURETIC PEPTIDE STAT 03/31/2025 12:04 PM EDT URINALYSIS, MICROSCOPIC [...] OUTSIDE NECK Routine 03/31/2025 12:00 AM EDT from Last 3 Months Results * POC Glucose Once (04/08/2025 4:27 PM EDT) Only the most recent of37 resultswithin the time period is included. Glucose 105 70 - 130 mg/dL 04/08/2025 4:31 PM EDT [facility] Comment:Serial Number: [id number] Blood 04/08/2025 4:27 PM EDT 04/08/2025 4:31 PM EDT us Jagruti Goins MD POINT OF CARE TEST ORDERABLES Final Result [facility]
[address] [place] [address], * HOGSHEAD INSPECTOR FEES - Fiberoptic Endo Eval Swallow (04/07/2025 11:54 AM EDT) Only the most recent of2 resultswithin the time period is included. Narrative SYSTEMGENERATED, DOCUMENTATION - 04/07/2025 11:54 AM EDT This procedure was auto-finalized with no dictation required. us Jagruti Goins MD HOGSHEAD INSPECTOR ORDERABLES Final Result * Telemetry Scan (04/07/2025 4:38 AM EDT) Only the most recent of5 resultswithin the time period is included. [facility] Onbase ECG ORDERABLES Final Result * Potassium (04/06/2025 7:13 PM EDT) Potassium 4.1 3.5 - 5.2 mmol/L 04/06/2025 7:58 PM EDT [facility] Blood Venipuncture / Unknown 04/06/2025 7:13 PM EDT 04/06/2025 7:37 PM EDT Jagruti Goins MD LAB BLOOD ORDERABLES Final Re sult [facility]
[address] [place] [address], * XR Shoulder 2+ View Right (04/06/2025 [...] MD 04/06/2025 12:46 PM EDT Workstation ID: [id number] Narrative 04/06/2025 12:46 PM EDT XR SHOULDER [...] MD 04/06/2025 12:46 PM EDT Workstation ID: [id number] Jagruti Goins MD IMG DIAGNOSTIC IMAGING ORDERA BLES Final Result * (ABNORMAL) CBC Auto Differential (04/06/2025 9:07 AM EDT) Only the most recent of3 resultswithin the time period is included. WBC 2.94(L) 3.40 - 10.80 10*3/mm3 04/06/2025 9:23 AM EDT [facility] RBC 3.47(L) 3.77 - 5.28 10*6/mm3 04/06/2025 9:23 AM EDT [facility] Hemoglobin 10.4(L) 12.0 - 15.9 g/dL 04/06/2025 9:23 AM EDT [facility] Hematocrit 31.4(L) 34.0 - 46.6 % 04/06/2025 9:23 AM EDT [facility] MCV 90.5 79.0 - 97.0 fL 04/06/2025 9:23 AM EDT [facility] MCH 30.0 26.6 - 33.0 pg 04/06/2025 9:23 AM [facility]IATRIC LABORATORY MCHC 33.1 31.5 - 35.7 g/dL 04/06/2025 9:23 AM [facility] RDW 17.1(H) 12.3 - 15.4 % 04/06/2025 9:23 AM [facility] RDW-SD 56.0(H) 37.0 - 54.0 fl 04/06/2025 9:23 AM EDT [facility] MPV 9.0 6.0 - 12.0 fL 04/06/2025 9:23 AM T [facility] Platelets 129(L) 140 - [...] 0.0 - 1.5 % 04/06/2025 9:23 AM [facility]ATRIC LABORATORY Immature Grans % 0.3 0.0 - 0.5 % 04/06/2025 9:23 AM [facility]IATRIC LABORATORY Neutrophils, Absolute 1.36(L) 1.70 - 7.00 10*3/mm3 04/06/2025 9:23 AM EDT [facility] Lymphocytes, Absolute 1.13 0.70 - 3.10 10*3/mm3 04/06/2025 9:23 AM EDT [facility] Monocytes, Absolute 0.36 0.10 - 0.90 10*3/mm3 04/06/2025 9:23 AM EDT [facility] Eosinophils, Absolute 0.06 0.00 - 0.40 10*3/mm3 04/06/2025 9:23 AM EDT [facility] Basophils, Absolute 0.02 0.00 - 0.20 10*3/mm3 04/06/2025 9:23 AM EDT [facility] Immature Grans, Absolute 0.01 0.00 - 0.05 10*3/mm3 04/06/2025 9:23 AM EDT [facility] nRBC 0.0 0.0 - 0.2 /100 WBC 04/06/2025 9:23 AM EDT [facility] Blood Venipuncture / Unknown 04/06/2025 9:07 AM EDT 04/06/2025 9:16 AM EDT us Susan Alvarado MD LAB BLOOD ORDERABLES Final Resul t [facility]
[address] [place] [address], * (ABNORMAL) Comprehensive Metabolic Panel (04/06/2025 9:07 AM EDT) Only the most recent of3 resultswithin the time period is included. Glucose 116(H) 65 - 99 mg/dL 04/06/2025 9:35 AM EDT [facility] BUN 7.6(L) 8.0 - 23.0 mg/dL 04/06/2025 9:35 AM EDT [facility] Creatinine 0.73 0.57 - 1.00 mg/dL 04/06/2025 9:35 AM EDT [facility] Sodium 139 136 - 145 mmol/L 04/06/2025 9:35 AM EDT [facility] Potassium 3.2(L) 3.5 - 5.2 mmol/L 04/06/2025 9:35 AM EDT [facility] Chloride 105 98 - 107 mmol/L 04/06/2025 9:35 AM EDT [facility] CO2 23.2 22.0 - 29.0 mmol/L 04/06/2025 9:35 AM EDT [facility] Calcium 9.3 8.6 - 10.5 mg/dL 04/06/2025 9:35 AM T [facility] Total Protein 6.8 6.0 - 8.5 g/dL 04/06/2025 9:35 AM T [facility] Albumin 3.5 3.5 - 5.2 g/dL 04/06/2025 9:35 AM [facility] ALT (SGPT) 6 1 - 33 U/L 04/06/2025 9:35 AM T [facility] AST (SGOT) 20 1 - 32 U/L 04/06/2025 9:35 AM [facility] Alkaline Phosphatase 145(H) 39 - 117 U/L 04/06/2025 9:35 AM T [facility] Total Bilirubin 0.7 0.0 - 1.2 mg/dL 04/06/2025 9:35 AM [facility] Globulin 3.3 gm/dL 04/06/2025 9:35 AM T [facility] Comment:Calculated Result A/G Ratio 1.1 g/dL 04/06/2025 9:35 AM T [facility] BUN/Creatinine Ratio 10.4 7.0 - 25.0 04/06/2025 9:35 AM [facility] Anion Gap 10.8 5.0 - 15.0 mmol/L 04/06/2025 9:35 AM [facility] eGFR 89.7 >60.0 mL/min/1.7 3 04/06/2025 9:35 AM [facility] Blood Venipuncture / Unknown 04/06/2025 9:07 AM EDT 04/06/2025 9:15 AM EDT [facility] - 04/06/2025 9:35 AM EDT [...] ORDERABLES Final Resul t Performing Organization Address City/[facility]/ZIP Co de Phone Number [facility]
[address] [place] [address], * Ammonia (04/03/2025 10:36 AM EDT) Only the most recent of2 resultswithin the time period is included. Ammonia 47 11 - 51 umol/L 04/03/2025 1:04 PM EDT [facility] Blood Venipuncture / Unknown 04/03/2025 10:36 AM EDT 04/03/2025 10:53 AM EDT Dmitry Nicolas MD LAB BLOOD ORDERABLES Final Result Performing Organization Address [facility] Co de Phone Number [facility]
[address] [place] [address], * (ABNORMAL) CBC (No Diff) (04/03/2025 3:49 AM EDT) Only the most recent of2 resultswithin the time period is included. WBC 2.76(L) 3.40 - 10.80 10*3/mm3 04/03/2025 4:06 AM EDT [facility] RBC 2.96(L) 3.77 - 5.28 10*6/mm3 04/03/2025 4:06 AM EDT [facility] Hemoglobin 9.3(L) 12.0 - 15.9 g/dL 04/03/2025 4:06 AM EDT [facility] Hematocrit 28.6(L) 34.0 - 46.6 % 04/03/2025 4:06 AM EDT [facility] MCV 96.6 79.0 - 97.0 fL 04/03/2025 4:06 AM EDT [facility] MCH 31.4 26.6 - 33.0 pg 04/03/2025 4:06 AM EDT [facility] MCHC 32.5 31.5 - 35.7 g/dL 04/03/2025 4:06 AM EDT [facility] RDW 17.8(H) 12.3 - 15.4 % 04/03/2025 4:06 AM EDT [facility] RDW-SD 60.4(H) 37.0 - 54.0 fl 04/03/2025 4:06 AM EDT [facility] MPV 9.9 6.0 - 12.0 fL 04/03/2025 4:06 AM EDT [facility] Platelets 68(L) 140 - 450 10*3/mm3 04/03/2025 4:06 AM EDT [facility] Blood Line / Unknown 04/03/2025 3: 49 AM EDT 04/03/2025 4:01 AM EDT Alonso Cameron MULTICULTURAL SERVICES LIBRARIAN LAB BLOOD ORDERABLES Nazanin l Result [facility]
[address] [place] [address], * Phosphorus (04/03/2025 3:49 AM EDT) Only the most recent of4 resultswithin the time period is included. Phosphorus 3.2 2.5 - 4.5 mg/dL 04/03/2025 4:15 AM EDT [facility] Blood Line / Unknown 04/03/2025 3: 49 AM EDT 04/03/2025 3:55 AM EDT Alonso Cameron APRN LAB BLOOD ORDERABLES Nazanin l Result Performing Organization Address [facility] de Phone Number [facility]
[address] [place] [address], * Magnesium (04/03/2025 3:49 AM EDT) Only the most recent of4 resultswithin the time period is included. Magnesium 2.0 1.6 - 2.4 mg/dL 04/03/2025 4:15 AM EDT [facility] Blood Line / Unknown 04/03/2025 3: 49 AM EDT 04/03/2025 3:55 AM EDT Dmitry Nicolas MD LAB BLOOD ORDERABLES Final Result Performing Organization Address [facility] de Phone Number [facility]
[address] [place] [address], * (ABNORMAL) Basic Metabolic Panel (04/03/2025 3:49 AM EDT) Only the most recent of2 resultswithin the time period is included. Glucose 114(H) 65 - 99 mg/dL 04/03/2025 4:15 AM EDT [facility] BUN 7.6(L) 8.0 - 23.0 mg/dL 04/03/2025 4:15 AM EDT [facility] Creatinine 0.79 0.57 - 1.00 mg/dL 04/03/2025 4:15 AM EDT [facility] Sodium 138 136 - 145 mmol/L 04/03/2025 4:15 AM EDT [facility] Potassium 3.8 3.5 - 5.2 mmol/L 04/03/2025 4:15 AM EDT [facility] Chloride 106 98 - 107 mmol/L 04/03/2025 4:15 AM EDT [facility] CO2 22.7 22.0 - 29.0 mmol/L 04/03/2025 4:15 AM EDT [facility] Calcium 9.0 8.6 - 10.5 mg/dL 04/03/2025 4:15 AM EDT [facility] BUN/Creatinine Ratio 9.6 7.0 - 25.0 04/03/2025 4:15 AM EDT [facility] Anion Gap 9.3 5.0 - 15.0 mmol/L 04/03/2025 4:15 AM EDT [facility] eGFR 81.6 >60.0 mL/min/1.7 3 04/03/2025 4:15 AM EDT [facility] Blood Line / Unknown 04/03/2025 3: 49 AM EDT 04/03/2025 3:55 AM EDT [facility] - 04/03/2025 4:15 AM EDT GFR [...] does not include race as a factor Alonso Cameron MULTICULTURAL SERVICES LIBRARIAN LAB BLOOD ORDERABLES Nazanin l Result [facility]
[address] [place] [address], * CT Head Without Contrast (04/01/2025 11:40 [...] MD 04/01/2025 11:48 AM EDT Workstation ID: [id number] Artie 04/01/2025 11:[address] HEAD [...] MD 04/01/2025 11:48 AM EDT Workstation ID: [id number] us Lowellprasanna Do DO IMG CT ORDERABLES Final Result * XR Chest 1 View (04/01/2025 5:04 AM EDT) Only the most recent of2 resultswithin the time period is included. Anatomical Region Laterality Modality Body N/A Radiographic Gerri ging 04/01/2025 7:52 AM EDT Impressions 04/01/2025 7:52 AM EDT Impression: 1.Increased left basilar atelectasis. 2.Mild discoid atelectasis in the right midlung. Electronically Signed: Adrián Puri MD 04/01/2025 7:52 AM EDT Workstation ID: [id number] Narrative 04/01/2025 7:52 AM EDT XR CHEST [...] MD 04/01/2025 7:52 AM EDT Workstation ID: [id number] Narda Davila PA-C IMG DIAGNOSTIC IMAGING ORDERABLE S Final Result * (ABNORMAL) Blood Gas, Arterial With Co-Ox (04/01/2025 3:40 AM EDT) Only the most recent of2 resultswithin the time period is included. Site Left Radial 04/01/2025 3:41 AM EDT [facility]ER[facility] Henok's Test Positive 04/01/2025 3:41 AM EDT [facility] TH[facility] pH, Arterial 7.416 7.350 - 7.450 pH units 04/01/2025 3:41 AM EDT [facility] pCO2, Arterial 34.0(L) 35.0 - 45.0 mm Hg 04/01/2025 3:41 AM EDT [facility] Comment:84 Value below refer ence range pO2, Arterial 87.7 83.0 - 108.0 mm Hg 04/01/2025 3:41 AM EDT [facility] HCO3, Arterial 21.9 20.0 - 26.0 mmol/L 04/01/2025 3:41 AM EDT [facility] Base Excess, Arterial -2.2(L) 0.0 - 2.0 mmol/L 04/01/2025 3:41 AM EDT [facility] Hemoglobin, Blood Gas 10.2(L) 14 - 18 g/dL 04/01/2025 3:41 AM EDT [facility] Comment:84 Value below refer ence range Hematocrit, Blood Gas 31.2(L) 38.0 - 51.0 % 04/01/2025 3:41 AM [facility] Oxyhemoglobin 95.1 94 - 99 % 04/01/2025 3:41 AM [facility] Methemoglobin 0.40 0.00 - 1.50 % 04/01/2025 3:41 AM [facility] Carboxyhemoglobin 1.6 0 - 2 % 3:41 AM T [facility] CO2 Content 22.9 22 - 33 mmol/L 04/01/2025 3:41 AM [facility] TH[facility] Temperature 37.0 04/01/2025 3:41 AM [facility] Barometric Pressure for Blood Gas 04/01/2025 3:41 AM [facility] Comment:N/A Modality Ventilator 04/01/2025 3:41 AM [facility] FIO2 30 % 04/01/2025 3:41 AM [facility] Ventilator Mode VC+/AC 3:41 AM [facility] Set Tidal Volume 0.42 04/01/20 3:41 AM [facility] Rate 14 Breaths/ minute 04/01/2025 3:41 AM [facility] PEEP 5.0 04/01/2025 3:41 AM [facility] PIP 0 cmH2O 04/01/2025 3:41 AM [facility] Comment:Meter: [id number] [employer] Maker: [id number] IPAP 0 04/01/2025 3:41 AM [facility] THER[facility] EPAP 0 04/01/2025 3:41 AM [facility] TH[facility] pH, Temp Corrected 7.416 pH Units 2024 3:41 AM [facility] TH[facility] pCO2, Temperature Corrected 34.0(L) 35 - 45 mm Hg 04/01/2025 3:41 AM EDT [facility] pO2, Temperature Corrected 87.7 83 - 108 mm Hg 04/01/2025 3:41 AM EDT [facility] Arterial Blood 04/01/2025 3: 40 AM EDT 04/01/2025 3:40 AM EDT us Pk Mckeon MD LAB BLOOD ORDERABLES Final R esult [facility]
[address] [place] [address], [place] * MRI Brain Without Contrast (03/31/2025 10:23 [...] than right. Findings were communicated to the outpatient coordinator, Horace at 6:03 a.m. at the time of interpretation Electronically Signed: Pérez Ardon MD 04/01/2025 6:05 AM EDT Workstation ID: [id number] Narrative 04/01/2025 6:05 AM EDT MRI BRAIN WO [...] than right. Findings were communicated to the outpatient coordinator, Horace at 6:03 a.m. atthe time of interpretation Electronically Signed: Pérez Ardon MD 04/01/2025 6:05 AM EDT Workstation ID: [id number] Lowell Do DO IMG MRI ORDERABLES Final Result * Type & Screen (03/31/2025 3:22 PM EDT) ABO Type A 03/31/2025 4:13 PM EDT [facility] RH type Positive 03/31/2025 4:13 PM EDT [facility] Antibody Screen Negative 03/31/2025 4:13 PM EDT [facility] T&S Expiration Date 04/03/2025 11:59:59 PM 03/31/2025 4:13 PM EDT [facility] Blood Venipuncture / Unknown 03/31/2025 3:22 PM EDT 03/31/2025 3:41 PM EDT us Pk Mckeon MD BLOOD BANK TEST ORDERABLES E dited Result - Final [facility]
[address] [place] [address], [place] [phone] * Folate (03/31/2025 3:22 PM EDT) Folate >20.00 4.78 - 24.20 ng/mL 03/31/2025 9:06 PM EDT [facility] Blood Venipuncture / Unknown 03/31/2025 3:22 PM EDT 03/31/2025 3:38 PM EDT Narrative [facility] - 03/31/2025 9:06 PM EDT Results may be falsely increased if patient taking Biotin. us Pk Mckeon MD LAB BLOOD ORDERABLES Final R esult [facility]
[address] [place] [address], [place] [phone] * Vitamin B12 (03/31/2025 3:22 PM EDT) Vitamin B-12 345 211 - 946 pg/mL 03/31/2025 9:06 PM EDT [facility] Blood Venipuncture / Unknown 03/31/2025 3:22 PM EDT 03/31/2025 3:38 PM EDT Narrative [facility] - 03/31/2025 9:06 PM EDT Results may be falsely increased if patient taking Biotin. Pk Mckeon MD LAB BLOOD ORDERABLES Final R esult Performing Organization Address [facility] Co de Phone Number [facility]
[address] [place] [address], * EEG AWAKE OR DROWSY PORTABLE (03/31/2025 2:20 PM EDT) Impressions NEUROLOGY - 03/31/2025 4:32 PM EDT Diffuse cerebral dysfunction of mild-moderate degree, nonspecific but most commonly seen due to toxic/metabolic or hypoxemic cause No ongoing seizures are present This report is transcribed using the [employer] dictation system. Narrative NEUROLOGY - 03/31/2025 4:32 [...] ORDERABLES Final Resul t Performing Organization Address City/[facility] Co de Phone Number [facility] * MRSA Screen, PCR (Inpatient) - Swab, Nares (03/31/2025 2:09 PM EDT) MRSA PCR Negative Negative [facility] 03/31/2025 3:37 PM EDT [facility] Swab Structure of anterior naris / Unknown Collection / Unknown 03/31/2025 2:09 PM EDT 03/31/2025 2:24 PM EDT Narrative [facility] - 03/31/2025 3:37 PM EDT The negative predictive value of this diagnostic test is high and should only be used to consider de-escalating anti-MRSA therapy. A positive result may indicate colonization with MRSA and must be correlated clinically. MRSA Negative Pk Mckeon MD MICROBIOLOGY - GENERAL ORDER LORENA Final Result [facility]
[address] [place] [address], * XR Abdomen KUB (03/31/2025 12:58 PM EDT) Anatomical Region Laterality Modality Body, Abdomen N/A Radiographic Gerri ging 03/31/2025 1:12 PM EDT Impressions 03/31/2025 1:13 PM EDT Impression: 1.Nasogastric tube tip is within the stomach. 2.Atelectatic changes suggested in the visualized lower lungs. Electronically Signed: Marques Roberto MD 03/31/2025 1:13 PM EDT Workstation ID: [id number] Narrative 03/31/2025 1:13 PM EDT XR ABDOMEN [...] MD 03/31/2025 1:13 PM EDT Workstation ID: [id number] Pk Mckeon MD IMG DIAGNOSTIC IMAGING ORDER LORENA Final Result * Blood Culture - Blood, Hand, Right (03/31/2025 12:40 PM EDT) Only the most recent of2 resultswithin the time period is included. Blood Culture No growth at 5 days 04/05/2025 1:46 PM EDT [facility] Blood Structure of right hand / Unknown Venipuncture / Unknown 03/31/2025 12:40 PM EDT 03/31/2025 1:32 PM EDT Narda Davila PA-C MICROBIOLOGY - GENERAL ORDERABLE S Final Result [facility]
[address] [place] [address], * (ABNORMAL) TSH Rfx On Abnormal To Free T4 (03/31/2025 12:04 PM EDT) TSH 4.410(H) 0.270 - 4.200 uIU/mL 03/31/2025 12:44 PM EDT [facility] Blood Line / Unknown 03/31/2025 12 :04 PM EDT 03/31/2025 12:09 PM EDT us Pk Mckeon MD LAB BLOOD ORDERABLES Final R esult [facility]
[address] [place] [address], * ABO RH Specimen Verification (03/31/2025 12:04 PM EDT) ABO Type A 03/31/2025 11:45 PM EDT [facility] RH type Positive 03/31/2025 11:45 PM EDT [facility] Blood Venipuncture / Unknown 03/31/2025 12:04 PM EDT 03/31/2025 3:49 PM EDT us Pk Mckeon MD BLOOD BANK TEST ORDERABLES F inal Result Performing Organization Address [facility]/ZIP Co de Phone Number [facility]
[address] [place] [address], * (ABNORMAL) Procalcitonin (03/31/2025 12:04 PM EDT) Procalcitonin 0.35(H) 0.00 - 0.25 ng/mL 03/31/2025 12:41 PM EDT [facility] Blood Line / Unknown 03/31/2025 12 :04 PM EDT 03/31/2025 12:09 PM EDT Narrative [facility] - 03/31/2025 12:41 PM EDT As [...] Day 4 values are available. Refer to http://www.tesvln-xuz-dntadehsdb.com Change in PCT <=80% A decrease of [...] ORDERABLES Final R esult Performing Organization Address City/[facility] Co de Phone Number [facility]
[address] [place] [address], * Iron Profile w/o Ferritin (03/31/2025 12:04 PM EDT) [facility] Iron 117 37 - 145 mcg/dL 03/31/2025 1:29 PM EDT [facility] Iron Saturation (TSAT) 27 20 - 50 % 03/31/2025 1:29 PM EDT [facility] Transferrin 290 200 - 360 mg/dL 03/31/2025 1:29 PM EDT [facility] TIBC 432 298 - 536 mcg/dL 03/31/2025 1:29 PM EDT [facility] Blood Line / Unknown 03/31/2025 12 :04 PM EDT 03/31/2025 12:09 PM EDT us Pk Mckeon MD LAB BLOOD ORDERABLES Final R esult Performing Organization Address City/[facility]/ZIP Co de Phone Number [facility]
[address] [place] [address], * (ABNORMAL) Reticulocytes (03/31/2025 12:04 PM EDT) Reticulocyte % 3.55(H) 0.70 - 1.90 % 03/31/2025 1:09 PM EDT [facility] Reticulocyte Absolute 0.1250 0.0200 - 0.1300 10*6/mm3 03/31/2025 1:09 PM EDT [facility] Blood Line / Unknown 03/31/2025 12 :04 PM EDT 03/31/2025 12:10 PM EDT us Pk Mckeon MD LAB BLOOD ORDERABLES Final R esult [facility]
[address] [place] [address], * T4, Free (03/31/2025 12:04 PM EDT) Free T4 1.15 0.92 - 1.68 ng/dL 03/31/2025 1:10 PM EDT [facility] Blood Line / Unknown 03/31/2025 12 :04 PM EDT 03/31/2025 12:09 PM EDT us Pk Mckeon MD LAB BLOOD ORDERABLES Final R esult [facility]
[address] [place] [address], * BNP (03/31/2025 12:04 PM EDT) proBNP 878.0 0.0 - 900.0 pg/mL 03/31/2025 12:41 PM EDT [facility] Blood Line / Unknown 03/31/2025 12 :04 PM EDT 03/31/2025 12:09 PM EDT Narrative [facility] - 03/31/2025 12:41 PM EDT This [...] ORDERABLES Final R esult Performing Organization Address City/[facility]/ZIP Co de Phone Number [facility]
[address] [place] [address], * Lactic Acid, Plasma (03/31/2025 12:04 PM EDT) Lactate 2.0 0.5 - 2.0 mmol/L 03/31/2025 12:31 PM EDT [facility] Comment:Falsely depressed re sults may occur on samples drawn from patients receiving N-Acetylcysteine (NAC) or Metamizole. Blood Line / Unknown 03/31/2025 12 :04 PM EDT 03/31/2025 12:09 PM EDT us Pk Mckeon MD LAB BLOOD ORDERABLES Final R esult [facility]
[address] [place] [address], * Hemoglobin A1c (03/31/2025 12:04 PM EDT) Hemoglobin A1C 5.33 4.80 - 5.60 % 03/31/2025 12:58 PM EDT [facility] Blood Line / Unknown 03/31/2025 12 :04 PM EDT 03/31/2025 12:10 PM EDT Narrative [facility] - 03/31/2025 12:58 PM EDT Hemoglobin A1C Ranges: Increased Risk for Diabetes 5.7% to 6.4% Diabetes >= 6.5% Diabetic Goal < 7.0% us Pk Mckeon MD LAB BLOOD ORDERABLES Final R esult Performing Organization Address City/[facility]/ZIP Co de Phone Number [facility]
[address] [place] [address], * Ferritin (03/31/2025 12:04 PM EDT) Ferritin 45.20 13.00 - 150.00 ng/mL 03/31/2025 1:29 PM EDT [facility] Blood Line / Unknown 03/31/2025 12 :04 PM EDT 03/31/2025 12:09 PM EDT Narrative [facility] - 03/31/2025 1:29 PM EDT Results may be falsely decreased if patient taking Biotin. us Pk Mckeon MD LAB BLOOD ORDERABLES Final R esult Performing Organization Address City/[facility]/ZIP Co de Phone Number [facility]
[address] [place] [address], * (ABNORMAL) CK (03/31/2025 12:04 PM EDT) Creatine Kinase 215(H) 20 - 180 U/L 03/31/2025 12:41 PM EDT [facility] Blood Line / Unknown 03/31/2025 12 :04 PM EDT 03/31/2025 12:09 PM EDT us Pk Mckeon MD LAB BLOOD ORDERABLES Final R esult Performing Organization Address City/[facility]/ZIP Co de Phone Number [facility]
[address] [place] [address], [place] [phone] * (ABNORMAL) Urinalysis, Microscopic Only - Urine, Clean Catch (03/31/2025 11:33 AM EDT) RBC, UA 6-10(A) None Seen, 0-2 /HPF 03/31/2025 12:30 PM EDT [facility] WBC, UA 6-10(A) None Seen, 0-2 /HPF 03/31/2025 12:30 PM EDT [facility] Bacteria, UA Trace(A) None Seen /HPF 03/31/2025 12:30 PM EDT [facility] Squamous Epithelial Cells, UA 0-2 None Seen, 0-2 /HPF 03/31/2025 12:30 PM EDT [facility] Renal Epithelial Cells, UA 0-2 0 - 2 /HPF 03/31/2025 12:30 PM EDT [facility] Hyaline Casts, UA 7-12 None Seen /LPF 03/31/2025 12:30 PM EDT [facility] Methodology Manual Light Microscopy 03/31/2025 12:30 PM EDT [facility] Urine Urine specimen obtained by clean catch procedure / Unknown Collection / Unknown 03/31/2025 11:33 AM EDT 03/31/2025 11:44 AM EDT Pk Mckeon MD URINE ORDERABLES Final Resul t [facility]
[address] [place] [address], * (ABNORMAL) Urinalysis With Microscopic If Indicated (No Culture) - Urine, Clean Catch (03/31/2025 11:33 AM EDT) Color, UA Yellow Yellow, Straw 03/31/2025 12:31 PM EDT [facility] Appearance, UA Clear Clear 03/31/2025 12:31 PM EDT [facility] pH, UA 6.5 5.0 - 8.0 03/31/2025 12:31 PM EDT [facility] Specific [place], UA >1.030(H) 1.005 - 1.030 03/31/2025 12:31 PM EDT [facility] Glucose, UA Negative Negative 03/31/2025 12:31 PM EDT [facility] Ketones, UA Negative Negative 03/31/2025 12:31 PM EDT [facility] Bilirubin, UA Negative Negative 03/31/2025 12:31 PM EDT [facility] Blood, UA Small (1+)(A) Negative 03/31/2025 12:31 PM EDT [facility] Protein, UA 100 mg/dL (2+)(A) Negative 03/31/2025 12:31 PM EDT [facility] Leuk Esterase, UA Small (1+)(A) Negative 03/31/2025 12:31 PM EDT [facility] Nitrite, UA Negative Negative 03/31/2025 12:31 PM EDT [facility] Urobilinogen, UA 1.0 E.U./dL 0.2 - 1.0 E.U./dL 03/31/2025 12:31 PM EDT [facility] Urine Urine specimen obtained by clean catch procedure / Unknown Collection / Unknown 03/31/2025 11:33 AM EDT 03/31/2025 11:44 AM EDT us Pk Mckeon MD URINE ORDERABLES Final Resul t [facility]
[address] [place] [address], * Respiratory Culture - Sputum, ET Suction (03/31/2025 11:33 AM EDT) Respiratory Culture Light growth (2+) Normal respiratory marva. No S. aureus or Pseudomonas aeruginosa detected. Final report. ANIVAL 04/02/2025 11:36 AM EDT [facility] Gram Stain Few (2+) WBCs per low power field 04/02/2025 11:36 AM EDT [facility] Gram Stain No Epithelial cells per low power field 04/02/2025 11:36 AM EDT [facility] Gram Stain Few (2+) Gram positive bacilli 04/02/2025 11:36 AM EDT [facility] Sputum Tracheal structure / Unknown Collection / Unknown 03/31/2025 11:33 AM EDT 03/31/2025 11:38 AM EDT us Narda Davila PA-C MICROBIOLOGY - GENERAL ORDERABLE S Final Result [facility]
[address] [place] [address], [place] [phone] [facility]
[address] [place] [address], * XR Outside Chest (03/31/2025 12:15 AM EDT) Narrative SYSTEMGENERATED, DOCUMENTATION - 04/01/2025 11:52 AM EDT This procedure was auto-finalized with no dictation required. us [employer] Outside Films IMG DIAGNOSTIC IMAGING ORD ERABLES Final Result * CT Outside Head (03/31/2025 12:10 AM EDT) Only the most recent of2 resultswithin the time period is included. Narrative SYSTEMGENERATED, DOCUMENTATION - 04/01/2025 11:39 AM EDT This procedure was auto-finalized with no dictation required. us [employer] Outside Films IMG CT ORDERABLES Final Re sult * CT Outside Neck (03/31/2025 12:00 AM EDT) Narrative SYSTEMGENERATED, DOCUMENTATION - 04/01/2025 11:38 AM EDT This procedure was auto-finalized with no dictation required. us Radiant Outside Films IMG CT ORDERABLES Final Re sult from Last 3 Months Insurance MEDICARE A & B Advance Directives * CPR (Attempt to Resuscitate) (Latest Code Status on File) Date Activated Date Inactivated Comments 03/31/2025 7:46 PM 04/09/2025 1:36 PM Question Answer Comments Code Status (Patient has no pulse and is not breathing): CPR (Attempt to Resuscitate) Medical Interventions (Patie nt has pulse or is breathing): Full Support Care Teams Dining Room Coordinator Relationship Specialty Start Date End Date Provider, No Known [facility] [place] [address] PCP - General 03/31/25
--- OUTSIDE RECORDS SUMMARY | 2025-05-29 16:52 | XMS_ITS | Clinical Summary ---
Author Organization Healthcare Address [address] [place] [address] Care Team Providers Care Stock Shipper Name Role Phone Adrián Triana MD Primary Care Provider [phone] Social History Tobacco Use Types Packs/Day Years [...] of Treatment Not on file Care Teams Stock Shipper Relationship Specialty Start Date End Date Adrián Triana MD [address] [place] [address] [place] [id number] PCP - General 10/24/20
[2025-05-29 16:57] LABS: Microscopic, Urine URINE MICROSCOPIC (MICROSCOPIC)
[2025-05-29 17:01] LABS: Bilirubin,Urine Negative (Negative); Color,Urine YELLOW (Yellow); Glucose,Urine (UA) Negative (Negative); Ketones,Urine 1+ (Negative); Leukocyte Esterase,Urine Negative (Negative); PH,Urine 5.5 (5.0-8.5); Protein,Urine 2+ (Negative); Specific Gravity, Urine 1.025 (1.005-1.030); Urobilinogen,Urine 0.2 EU/dl (0.2)
[2025-05-29 17:13] LABS: Barbiturates Screen,Urine Negative ng/ml (<200); Benzodiazepines Screen,Urine Negative ng/ml (<200)
[2025-05-29 17:14] LABS: Amphetamine/Metha Screen,Urine Negative ng/ml (<1000)
[2025-05-29 17:17] LABS: Methadone Screen,Urine Negative ng/ml (<300); Opiate Screen,Urine Negative ng/ml (<300)
[2025-05-29 17:18] LABS: Bacteria,Urine Trace /lpf; Phencyclidine Screen,Urine Negative ng/ml (<25)
--- NOTE | 2025-05-29 17:55 | PEERSUPPORT ---
Peer Support Note Patient Information Patient Information: DOS: 05/29/2025 ? Ps Consult: ED Bedside ? ETOH level at Admission: 304 ? ETOH HX: Long-term hx with alcohol use, only time she has been able to not drink is when she is hospitalized. ? ETHO Current Consumption: Vodka Daily, keeps a fifth to a half gallon beside of her bed. ? Previous Treatment: No alcohol use disorder treatment. ? Longest Length of Sobriety: Couple of weeks while she was at [facility] after being transferred from [facility] to other hospital.? ? Legal Issues: None ? Support System: None, nor any contact socially other than her . -Daughter- knows nothing about her current state, situation, or circumstances she is living in. ? Current Stressors: -ETOH levels 304 -Tremors, weakness, felling feverish, acid reflex, sensitivity to light with vision. -Difficulty remembering- voiced she has had lapses in her short term memory at home but had not shared them with anyone. ? Motivation for Change: Ps will follow up when ETOH levels have decreased to discuss treatment options available. -Pt stated that she has been living on vodka and cigarettes, she is lonely, miserable and does not want to this way. -Refuses to contact daughter with her problems, says her daughter has enough of her own problems. -Pt has no idea what happen to her face to give her a black eye on left or bruise on her left side of forehead. Says she must have ran into the door frame, but can't remember. ? Pt receptive and trusting as she remembers peer support from rapport built through previous encounters. ? Potential Barriers: -Exposure to alcohol with access. -Lack of connection to any support or recovery community. -Transportation barriers -Lack of contact once discharged, pt does not have her own phone. -Limited resources ? Insurance: Medicare ? Harm Reduction: -Connection to Bridge Peer support -Education on alcohol use disorder -Withdrawal management while in ED -Treatment referrals for outpatient due to insurance limitations to inpatient.
--- NOTE | 2025-05-29 18:26 | PC.NURSE ---
speaking with house regarding a bed
--- NOTE | 2025-05-29 18:34 | PC.NURSE ---
Called dietary for tray per .
[2025-05-29 18:50] LABS: Troponin I < 0.01 ng/ml (0.00-0.034)
[2025-05-29 19:33] LABS: Reflex Lactic Add Lactic Reflex
--- NOTE | 2025-05-29 20:02 | EXP.HP ---
History of Present Illness *Admission Date: 05/29/25 *Reason for visit:: ETOH withdrawl *History of present illness: Julia Swo is a 70-year-old female with past medical history significant for alcohol abuse, hypothyroidism, anemia and failure to thrive. Presents to [facility] after being found down by her . EMS notified and transferred patient to our facility for further evaluation. Upon arrival to the emergency department she was alert and oriented x 4. Denies events that led to her being found down. EMS noted patient to be tachycardic en route to the hospital, otherwise vitals stable. Patient with significant history of alcohol abuse. Alcohol level 307 per ED workup. Notable left-sided facial hematoma. Reports mild tenderness to mid back region. Admits consuming vodka recently, states last drink yesterday. Presents tremulous, noting generalized unwell feeling. Per chart review pt. underwent similar episode March 2025. She was found down with altered mental status secondary to alcohol withdrawal requiring intubation. Denies fever, chills, chest pain, shortness of breath, hemoptysis, urinary symptoms. ED workup included laboratory and imaging studies. Significant laboratory findings included platelet count 111, lactic acid 3.1, magnesium 1.1, AST 63, alkaline phos 196, plasma serum alcohol level 307. I personally reviewed all imaging studies which included, CT head, which was without any acute findings. CT cervical spine without acute findings. CT abdomen and pelvis revealing hepatomegaly, mild bilateral hydronephrosis slightly greater on the right. Enlarged fibroid uterus. Multiple masses throughout uterus. Suggestive of enlarged leiomyomatosis uterus. Lung nodules right and left lobe. Chest CTA revealing multifocal patchy ground glass airspace opacity right and left lung. Cholelithiasis and hepatic steatosis. Upon assessment of patient at bedside she was without acute distress. Notable tremors. Left-sided facial hematoma. Currently without complaint. Hemodynamically stable. [facility] Disclaimer: The information contained in this section may have been updated after the patient was seen, as this information can be updated by other users. Medical History (Updated 05/29/25 @ 22:36 by Salome Calloway APRN) GERD (gastroesophageal reflux disease) Hypothyroid Alcohol intoxication Encounter for social work intervention Thrombocytopenia Hypokalemia Ground-level fall Surgical History History of tubal ligation Family History Other No significant family history Social History Smoking Status: Current every day smoker alcohol intake: current substance use type: denies use current occupational status: unemployed Travel in the last 8 weeks?: None housing: house Have you lived/traveled outside [place] in past 30 days?: No Contact w/someone who lives/traveled outside [place] past 30 days?: No Exposure to someone with infectious disease in past 14 days?: No Do you have a fever (greater than 100.4 F or 38 C)?: No Have you tested positive for COVID-19?: No Exposed to someone with COVID-19 in past 14 days?: No Do you have a sore throat?: No Do you have a cough?: No Do you have any weakness?: No Are you experiencing any nausea/vomitting?: No Do you have any diarrhea?: No Are you experiencing any unusual bleeding?: No Do you have any muscle aches/pain?: No Do you have any abdominal pain?: No Are you experiencing loss of taste or smell?: No Other Medical History Have you received the Flu Vaccine for this season: No Have you received the Pneumonia Vaccine: No Review of Systems Review of Systems Review of systems:: pertinent systems reviewed and negative unless documented below Constitutional Constitutional: Reports system reviewed and no additional complaints, except as documented and Reports as per HPI Eyes Eyes: Reports system reviewed and no additional complaints, except as documented and Reports as per HPI ENT Ears, Nose, Mouth, and Throat: Reports system reviewed and no additional complaints, except as documented and Reports as per HPI *Cardiovascular Cardiovascular: Reports system reviewed and no additional complaints, except as documented and Reports as per HPI *Gastrointestinal Gastrointestinal: Reports system reviewed and no additional complaints, except as documented and Reports as per HPI *Genitourinary Genitourinary: Reports system reviewed and no additional complaints, except as documented and Reports as per HPI *Musculoskeletal Musculoskeletal: Reports back pain (d/t fall ) Integumentary/Breasts Skin/Breast: Reports as per HPI Comments: Multiple brusing throughout. Hematoma left side of face from fall *Neurologic Neurologic: Reports as per HPI Comments: Tremors present Psychiatric Psychiatric: Reports system reviewed and no additional complaints, except as documented and Reports as per HPI Endocrine Endocrine: Reports system reviewed and no additional complaints, except as documented and Reports as per HPI Hematologic/Lymphatic Hematologic/Lymphatic: Reports system reviewed and no additional complaints, except as documented and Reports as per HPI Allergic/Immunologic Allergic/Immunologic: Reports system reviewed and no additional complaints, except as documented and Reports as per HPI Meds Home Medications and Allergies Home Medications ?Medication ?Instructions ?Recorded ?Confirmed ?Type pantoprazole 40 mg tablet,delayed 40 mg PO HS 30 days #30 tabs 09/14/24 01/03/25 Rx release levothyroxine 75 mcg tablet 75 mcg PO DAILY #30 tabs 01/04/25 Rx (Synthroid) New Prescriptions to Start Prescriptions: Allergies Allergy/AdvReac Type Severity Reaction Status Date / Time No Known Allergies Allergy Verified 07/26/24 16:27 Exam Data for Last 24 hours Vital signs and Labs for Last 24 Hours: Temp Pulse Resp BP Pulse Ox O2 Del Method 98.4 F 85 16 140/109 H 97 Room Air 05/29/25 19:36 05/29/25 19:36 05/29/25 19:36 05/29/25 19:36 05/29/25 18:01 05/29/25 19:36 Laboratory Results - last 24 hr 05/29/25 15:18: VBG pH 7.37, VBG pCO2 38.4, VBG pO2 47.4 H, VBG HCO3 21.8 L, VBG Total CO2 22.9 L, VBG O2 Saturation 77.0 H, VBG Base Excess -3.5 L, VBG Lactic Acid 6.0 H 05/29/25 15:20: WBC 3.8 L, RBC 3.73 L, Hgb 11.0 L, Hct 33.1 L, MCV 88.7, MCH 29.5, MCHC 33.2, RDW 16.1, Plt Count 111 L, MPV 8.7, Neut % (Auto) 69.5, Lymph % (Auto) 22.7, [place] % (Auto) 5.7, Eos % (Auto) 1.0, Baso % (Auto) 0.8, Neut # (Auto) 2.7, Lymph # (Auto) 0.9, [place]ell # (Auto) 0.2, Eos # (Auto) 0.0, Baso # (Auto) 0.0, PT 12.8 H, INR 1.17 H, APTT 26.9, Sodium 139, Potassium 4.1, Chloride 103, Carbon Dioxide 21 L, Anion Gap 19.1 H, BUN 14, Creatinine 0.70, Estimated Creat Clear 49, Estimated GFR 83, Est GFR ( Amer) 101, Glucose 111 H, Calcium 10.3 H, Phosphorus 3.2, Magnesium 1.1 L, Total Bilirubin 0.7, AST 63 H, ALT 35, Alkaline Phosphatase 196 H, Total Creatine Kinase 39, Troponin I < 0.01, Total Protein 7.8, Albumin 4.4, Globulin 3.4 H, Albumin/Globulin Ratio 1.3, Lipase 28, TSH 2.55, Thyroxine (T4) 6.4, Plasma/Serum Alcohol 307 H 05/29/25 16:44: Urine Color Yellow, Urine Appearance Clear, Urine pH 5.5, Ur Specific [place] 1.025, Urine Protein 2+ A, Urine Glucose (UA) Negative, Urine Ketones 1+, Urine Blood 1+ A, Urine Nitrate Negative, Urine Bilirubin Negative, Urine Urobilinogen 0.2, Ur Leukocyte Esterase Negative, Urine RBC None, Urine WBC 3-5, Ur Squamous Epith Cells None, Urine Bacteria Trace, Urine Opiates Screen Negative, Urine Methadone Screen Negative, Ur Barbituates Screen Negative, Ur Phencyclidine Scrn Negative, Ur Amphetamines Screen Negative, U Benzodiazepines Scrn Negative, Urine Cocaine Screen Negative, U Marijuana (THC) Screen Negative 05/29/25 18:13: Lactate 3.1 H, Troponin I < 0.01 I & O for Last 24 hours: Intake & Output 05/26/25 05/27/25 05/28/25 05/29/25 23:59 23:59 23:59 23:59 Intake Total 2064 Balance 2064 Weight 58.06 kg *Routine HEENT Exam Head: Present normocephalic and hematoma (Left facial region ) Eye: Present EOMI and PERRL ENT: Present mucous membranes moist *Routine Neck Exam Neck: Present supple and full ROM *Routine Respiratory Exam Respiratory: Present normal respiratory effort *Routine Cardiovascular Exam Cardiovascular: Present RRR, Normal S1 and Normal S2 *Routine Abdominal Exam Abdominal: Present soft and normoactive bowel sounds *Routine Rectal Exam Rectal:: deferred *Routine Genitalia Exam Genitalia:: deferred *Routine Extremities Exam Extremities: Present full ROM, pulses intact and normal capillary refill *Routine Skin Exam Skin: Present intact Comments: Multiple bruising throughout. Left sided facial hematoma d/t fall *Routine Neurological Exam Neurological: Present alert, oriented X3 and CN II-XII intact Routine Psychiatric Exam Psychiatric: Present normal affect Assessment and Plan *Assessment and plan (1) Alcohol abuse with intoxication, uncomplicated: Status: Acute Category: Medical Code(s): F10.120 - Alcohol abuse with intoxication, uncomplicated (2) Alcohol withdrawal: Status: Acute Qualifiers: Complication of substance-induced condition: uncomplicated Qualified Code(s): F10.930 - Alcohol use, unspecified with withdrawal, uncomplicated Category: Medical Code(s): F10.939 - Alcohol use, unspecified with withdrawal, unspecified (3) Lactic acidosis: Status: Acute Category: Medical Code(s): E87.20 - Acidosis, unspecified (4) Dehydration: Status: Acute Category: Medical Code(s): E86.0 - Dehydration (5) Hypomagnesemia: Status: Acute Category: Medical Code(s): E83.42 - Hypomagnesemia (6) Fall with injury: Status: Acute Qualifiers: Encounter type: initial encounter Qualified Code(s): W19.XXXA - Unspecified fall, initial encounter Category: Medical Code(s): W19.XXXA - Unspecified fall, initial encounter (7) Facial hematoma: Problem Comment: Left sided Status: Acute Qualifiers: Encounter type: initial encounter Qualified Code(s): S00.83XA - Contusion of other part of head, initial encounter Category: Medical Code(s): S00.83XA - Contusion of other part of head, initial encounter (8) Generalized weakness: Status: Acute Category: Medical Code(s): R53.1 - Weakness (9) Uterine mass: Status: Acute Category: Medical Code(s): N85.8 - Other specified noninflammatory disorders of uterus (10) Bilateral hydronephrosis: Status: Acute Category: Medical Code(s): N13.30 - Unspecified hydronephrosis (11) Lung nodules: Status: Acute Category: Medical Code(s): R91.8 - Other nonspecific abnormal finding of lung field (12) Hepatomegaly: Status: Acute Category: Medical Code(s): R16.0 - Hepatomegaly, not elsewhere classified (13) Hypothyroidism: Status: Acute Qualifiers: Hypothyroidism type: acquired Qualified Code(s): E03.9 - Hypothyroidism, unspecified Category: Medical Code(s): E03.9 - Hypothyroidism, unspecified (14) GERD (gastroesophageal reflux disease): Status: Acute Qualifiers: Esophagitis presence: without esophagitis Qualified Code(s): K21.9 - Gastro-esophageal reflux disease without esophagitis Category: Medical Code(s): K21.9 - Gastro-esophageal reflux disease without esophagitis Plan Assessment/plan: Management of this patient was discussed with the emergency department provider with agreement for hospital admission, patient/treatment. She is a 70-year-old female with a past medical history significant for alcohol abuse. Patient was found down at home per her . Suspected cause due to alcohol abuse. Alcohol level per ED workup 307. Alert and oriented x 4. Tremulous. Reports last drink yesterday. Notable left-sided facial hematoma likely due to fall. Workup also noted hypomagnesia and lactic acidosis. Imaging studies as noted above without acute finding per head CT. Multiple chronic and possible new non-emergent findings per imaging that include multiple uterine masses, enlarged uterus, bilateral hydronephrosis. Patient received Valium, magnesium 2 g, IV fluid bolus, MVI fluid. Continue monitor/treat withdrawal symptoms. Trend replace electrolytes. 1. Alcohol abuse with intoxication/withdrawal symptoms: Alcohol level noted 307 per ED workup. Alert and oriented x 4. Tremulous presentation. Found down at home, left-sided facial hematoma. Imaging studies as noted above without acute finding correlating with presentation. Prior similar episode March 2025 with altered mental status found down secondary to alcohol withdrawal. CIWA initiated while in the emergency department. Folic acid and MVI received initiated in the emergency department. Continue CIWA treat as appropriate for withdrawal symptoms. Patient currently without acute distress resting in bed comfortably. Vitals within normal limit. 2. Lactic acidosis secondary to dehydration: Lactic acid 3.1, received 1 L LR while in the emergency department. Will continue gentle IV fluids, repeat lactic acid pending. Continue to monitor. 3. Hypomagnesemia: Magnesium 1.1, magnesium 2 g received while in emergency department. Replace per electrolyte protocol. Trend/follow morning labs. 4. Fall with injury/generalized weakness: Suspect underlying alcohol abuse secondary induced factor. As noted above patient with left-sided facial hematoma secondary to fall. Reports mid back discomfort. Imaging as noted above without acute finding per head CT or spine. Fall precautions, PT OT evaluation. 5. Uterine mass/bilateral hydronephrosis/hepatomegaly: Incidental findings per imaging study with numerous calcified masses are present within the uterus. The uterus measures up to 11.8 x 11.6 x 9.0 cm. Findings most compatible with enlarged leiomyomatous uterus. Suggested follow-up nonemergent pelvic ultrasound-and outpatient gynecology follow-up/evaluation. Mild bilateral hydronephrosis, slightly greater on the right. Proximal and mid aspect of the right and left utero are dilated to the level of the pelvis. Partial obstruction of the right and left kidney. As noted will likely need outpatient follow-up with gynecology and/or nephrology. Patient without pain/discomfort. Renal function WNL. Hepatomegaly->borderline enlargement of spleen, varices within the mid upper abdomen. 6. Hypothyroidism: Resume home levothyroxine 75 mcg daily. 7. GERD: Resume home PPI, pantoprazole 40 mg. Full Code DVT prophylaxis: SCD's Regular Diet
[2025-05-29 22:05] LABS: Lactic Acid Follow Up (RFLX 1) 2.3 mmol/L (0.7-2.1)
[2025-05-29] MEDS: PANTOPRAZOLE 40MG TABLET 40 MG PO (22:17)
[2025-05-29] MEDS: 0.9 % SODIUM CHLORIDE 1000ML 1,000 ML 75 ML IV (22:18)
[2025-05-29] MEDS: NICOTINE 21MG/24HR PATCH 21 MG TD (22:19)
[2025-05-29 22:24] LABS: Troponin I < 0.01 ng/ml (0.00-0.034)
[2025-05-29 23:42] LABS: Reflex Lactic (2 hrs) Add Lactic Reflex
[2025-05-30 03:04] LABS: Lactic Acid Follow up (RFLX 2) 1.2 mmol/L (0.7-2.1)
[2025-05-30 04:00] VITALS: BP 151/68; PULSE 92; RESP 16; TEMP 36.9; O2SAT 94; BMI 21.5
[2025-05-30 06:02] LABS: Hematocrit 27.9 % (37.0-47.0); Immature Granulocytes % 0 %; Mean Corpuscular HGB Conc 34.1 g/dL (31.8-35.4); Mean Corpuscular Hemoglobin 29.8 pg (27.0-31.2); Mean Corpuscular Volume 87.5 fl (81-99); Nucleated Red Blood Cells % 0 %; Platelet Count 92 K/mm3 (142-424); Red Blood Count 3.19 M/mm3 (4.20-5.40); Red Cell Distribution Width-SD 52.3 fL; White Blood Count 2.5 K/mm3 (4.8-10.8)
[2025-05-30 06:07] LABS: Hemoglobin 9.5 g/dL (12.2-16.2)
[2025-05-30 06:12] LABS: Albumin Level 3.7 g/dl (3.5-5.0); Chloride 100 mmol/L (98-107); Sodium 130 mmol/L (136-145)
[2025-05-30 06:13] LABS: Potassium 3.8 mmoL/L (3.5-5.1)
[2025-05-30 06:15] LABS: Alanine Aminotransferase 28 U/L (12-78); Anion Gap 7.8 mEq/L (5-15); Aspartate Amino Transferase 42 U/L (14-36); Blood Urea Nitrogen 9 mg/dl (7-17); Carbon Dioxide 26 mmol/L (22.0-30.0); Creatinine Clearance Estimated 52 mL/min (50-200); Creatinine,Serum 0.70 mg/dl (0.52-1.04); Estimated Glomerular Filt Rate 83 ml/min (>60); GFR (African American) 101 ML/MIN (>60)
[2025-05-30 06:16] LABS: Albumin/Globulin Ratio 1.3 (1.1-1.8); Alkaline Phosphatase 162 U/L (38-126); Bilirubin,Total 0.8 mg/dl (0.2-1.3); Calcium 8.6 mg/dl (8.4-10.2); Globulin 2.9 g/dL (1.3-3.2); Glucose 100 mg/dl (74-100); Total Protein,Serum 6.6 g/dl (6.3-8.2)
--- OUTSIDE RECORDS SUMMARY | 2025-05-30 07:41 | XMS_ITS | Clinical Summary ---
Author Organization [facility] Address [address] [place] [address] Care Team Providers Care Research Animal Facility Supervisor Name Role Phone Provider, No Known Primary [...] Description 04/07/2025 10:35 AM EDT Ancillary Procedure [facility] IP SPEECH PATH [address] [place] [address] 04/02/2025 1:15 PM EDT Ancillary Procedure [facility] IP SPEECH PATH [address] [place] [address] 03/31/2025 10:18 AM EDT - 04/09/2025 11:26 AM EDT Hospital Encounter [facility] [address] [place] [address] Pk Mckeon MD Mini, MD Buster Davis [...] and heating? Not hard at all 04/01/2025 [facility] - [...] things needed for daily living? No 04/01/2025 [facility] Utilities Answer Date Recorded In the past [...] GED or equivalent No 04/01/2025 Preferred Language Panamanian 04/01/2025 Comments Unknown Sex and Gender Information [...] Description 09/19/2025 2:30 PM EDT Office Visit [facility] [address] [facility] [address] [place] [address] Radha Morales, LINE SERVICE SUPERVISOR [address] [facility] [address] [place] [address] Health Maintenance Due Date Last [...] GLUCOSE FINGERSTICK Routine 04/07/2025 4:52 PM EDT AUTOMATIC DRY STARCH OPERATOR FEES FIBEROPTIC ENDO EVAL SWALLOW Routine 04/07/2025 [...] EDT AMMONIA STAT 04/03/2025 10:36 AM EDT AUTOMATIC DRY STARCH OPERATOR FEES FIBEROPTIC ENDO EVAL SWALLOW Routine 04/03/2025 [...] - 130 mg/dL 04/08/2025 4:31 PM EDT [facility] Comment:Serial Number: [id number]: [id number] Blood 04/08/2025 4:27 PM EDT 04/08/2025 4:31 PM EDT us Jagruti Goins MD POINT OF CARE TEST ORDERABLES Final Result [facility]
[address] [place] [address], * AUTOMATIC DRY STARCH OPERATOR FEES - Fiberoptic Endo Eval Swallow (04/07/2025 11:54 AM EDT) Only the most recent of2 resultswithin the time period is included. Narrative SYSTEMGENERATED, DOCUMENTATION - 04/07/2025 11:54 AM EDT This procedure was auto-finalized with no dictation required. us Jagruti Goins MD AUTOMATIC DRY STARCH OPERATOR ORDERABLES Final Result * Telemetry Scan (04/07/2025 4:38 AM EDT) Only the most recent of5 resultswithin the time period is included. [facility] Onbase ECG ORDERABLES Final Result * Potassium (04/06/2025 7:13 PM EDT) Potassium 4.1 3.5 - 5.2 mmol/L 04/06/2025 7:58 PM EDT [facility] Blood Venipuncture / Unknown 04/06/2025 7:13 PM EDT 04/06/2025 7:37 PM EDT Jagruti Goins MD LAB BLOOD ORDERABLES Final Re sult [facility]
[address] [place] [address], * XR Shoulder 2+ View Right (04/06/2025 [...] MD 04/06/2025 12:46 PM EDT Workstation ID: [id number] Narrative 04/06/2025 12:46 PM EDT XR SHOULDER [...] likely pneumonia. Correlate withchest x-ray. Electronically Signed: Shaikr Trinh MD 04/06/2025 12:46 PM EDT Workstation ID: [id number] Jagruti Goins MD IMG DIAGNOSTIC IMAGING ORDERA BLES Final Result * (ABNORMAL) CBC Auto Differential (04/06/2025 9:07 AM EDT) Only the most recent of3 resultswithin the time period is included. WBC 2.94(L) 3.40 - 10.80 10*3/mm3 04/06/2025 9:23 AM EDT [facility] RBC 3.47(L) 3.77 - 5.28 10*6/mm3 04/06/2025 9:23 AM EDT [facility] Hemoglobin 10.4(L) 12.0 - 15.9 g/dL 04/06/2025 9:23 AM EDT [facility] Hematocrit 31.4(L) 34.0 - 46.6 % 04/06/2025 9:23 AM EDT [facility] MCV 90.5 79.0 - 97.0 fL 04/06/2025 9:23 AM EDT [facility] MCH 30.0 26.6 - 33.0 pg 04/06/2025 9:[facility] MCHC 33.1 31.5 - 35.7 g/dL 04/06/2025 9:23 AM [facility] RDW 17.1(H) 12.3 - 15.4 % 04/06/2025 9:23 AM [facility] RDW-SD 56.0(H) 37.0 - 54.0 fl 04/06/2025 9:23 AM EDT [facility] MPV 9.0 6.0 - 12.0 fL 04/06/2025 9:23 AM T [facility] Platelets 129(L) 140 - 450 10*3/mm3 04/06/2025 9:23 AM [facility] Neutrophil % 46.4 42.7 - 76.0 % 04/06/2025 9:23 AM [facility] Lymphocyte % 38.4 19.6 - 45.3 % 04/06/2025 9:23 AM [facility] Monocyte % 12.2(H) 5.0 - 12.0 % 04/06/2025 9:23 AM [facility] Eosinophil % 2.0 0.3 - 6.2 % 04/06/2025 9:23 AM [facility] Basophil % 0.7 0.0 - 1.5 % 04/06/2025 9:23 AM [facility] Immature Grans % 0.3 0.0 - 0.5 % 04/06/2025 9:23 AM [facility] Neutrophils, Absolute 1.36(L) 1.70 - 7.00 10*3/mm3 04/06/2025 9:23 AM EDT [facility] Lymphocytes, Absolute 1.13 0.70 - 3.10 10*3/mm3 04/06/2025 9:23 AM EDT [facility] Monocytes, Absolute 0.36 0.10 - 0.90 10*3/mm3 04/06/2025 9:23 AM EDT [facility] Eosinophils, Absolute 0.06 0.00 - 0.40 10*3/mm3 04/06/2025 9:23 AM EDT [facility] Basophils, Absolute 0.02 0.00 - 0.20 10*3/mm3 04/06/2025 9:23 AM EDT [facility] Immature Grans, Absolute 0.01 0.00 - 0.05 10*3/mm3 04/06/2025 9:23 AM EDT [facility] nRBC 0.0 0.0 - 0.2 /100 WBC 04/06/2025 9:23 AM EDT [facility] Blood Venipuncture / Unknown 04/06/2025 9:07 AM EDT 04/06/2025 9:16 AM EDT us Susan Alvarado MD LAB BLOOD ORDERABLES Final Resul t [facility]
[address] [place] [address], * (ABNORMAL) Comprehensive Metabolic Panel (04/06/2025 9:07 AM EDT) Only the most recent of3 resultswithin the time period is included. Glucose 116(H) 65 - 99 mg/dL 04/06/2025 9:35 AM EDT [facility] BUN 7.6(L) 8.0 - 23.0 mg/dL 04/06/2025 9:35 AM EDT [facility] Creatinine 0.73 0.57 - 1.00 mg/dL 04/06/2025 9:35 AM EDT [facility] Sodium 139 136 - 145 mmol/L 04/06/2025 9:35 AM EDT [facility] Potassium 3.2(L) 3.5 - 5.2 mmol/L 04/06/2025 9:35 AM EDT [facility] Chloride 105 98 - 107 mmol/L 04/06/2025 9:35 AM EDT [facility] CO2 23.2 22.0 - 29.0 mmol/L 04/06/2025 9:35 AM EDT [facility] Calcium 9.3 8.6 - 10.5 mg/dL 04/06/2025 9:35 AM T [facility] Total Protein 6.8 6.0 - 8.5 g/dL 04/06/2025 9:35 AM T [facility] Albumin 3.5 3.5 - 5.2 g/dL 04/06/2025 9:35 AM [facility] ALT (SGPT) 6 1 - 33 U/L 04/06/2025 9:35 AM T [facility] AST (SGOT) 20 1 - 32 U/L 04/06/2025 9:35 AM [facility] Alkaline Phosphatase 145(H) 39 - 117 U/L 04/06/2025 9:35 AM T [facility] Total Bilirubin 0.7 0.0 - 1.2 mg/dL 04/06/2025 9:35 AM [facility] Globulin 3.3 gm/dL 04/06/2025 9:35 AM T [facility] Comment:Calculated Result A/G Ratio 1.1 g/dL 04/06/2025 9:35 AM T [facility] BUN/Creatinine Ratio 10.4 7.0 - 25.0 04/06/2025 9:35 AM [facility] Anion Gap 10.8 5.0 - 15.0 mmol/L 04/06/2025 9:35 AM [facility] eGFR 89.7 >60.0 mL/min/1.7 3 04/06/2025 9:35 AM [facility] Blood Venipuncture / Unknown 04/06/2025 9:07 AM EDT 04/06/2025 9:15 AM EDT [facility] - [...] ORDERABLES Final Resul t Performing Organization Address City/[facility]/ZIP Co de Phone Number [facility]
[address] [place] [address], * Ammonia (04/03/2025 10:36 AM EDT) Only the most recent of2 resultswithin the time period is included. Ammonia 47 11 - 51 umol/L 04/03/2025 1:04 PM EDT [facility] Blood Venipuncture / Unknown 04/03/2025 10:36 AM EDT 04/03/2025 10:53 AM EDT Dmitry Nicolas MD LAB BLOOD ORDERABLES Final Result Performing Organization Address [facility] Co de Phone Number [facility]
[address] [place] [address], * (ABNORMAL) CBC (No Diff) (04/03/2025 3:49 AM EDT) Only the most recent of2 resultswithin the time period is included. WBC 2.76(L) 3.40 - 10.80 10*3/mm3 04/03/2025 4:06 AM EDT [facility] RBC 2.96(L) 3.77 - 5.28 10*6/mm3 04/03/2025 4:06 AM EDT [facility] Hemoglobin 9.3(L) 12.0 - 15.9 g/dL 04/03/2025 4:06 AM EDT [facility] Hematocrit 28.6(L) 34.0 - 46.6 % 04/03/2025 4:06 AM EDT [facility] MCV 96.6 79.0 - 97.0 fL 04/03/2025 4:06 AM EDT [facility] MCH 31.4 26.6 - 33.0 pg 04/03/2025 4:06 AM EDT [facility] MCHC 32.5 31.5 - 35.7 g/dL 04/03/2025 4:06 AM EDT [facility] RDW 17.8(H) 12.3 - 15.4 % 04/03/2025 4:06 AM EDT [facility] RDW-SD 60.4(H) 37.0 - 54.0 fl 04/03/2025 4:06 AM EDT [facility] MPV 9.9 6.0 - 12.0 fL 04/03/2025 4:06 AM EDT [facility] Platelets 68(L) 140 - 450 10*3/mm3 04/03/2025 4:06 AM EDT [facility] Blood Line / Unknown 04/03/2025 3: 49 AM EDT 04/03/2025 4:01 AM EDT Alonso Cameron LINE SERVICE SUPERVISOR LAB BLOOD ORDERABLES Nazanin l Result [facility]
[address] [place] [address], * Phosphorus (04/03/2025 3:49 AM EDT) Only the most recent of4 resultswithin the time period is included. Phosphorus 3.2 2.5 - 4.5 mg/dL 04/03/2025 4:15 AM EDT [facility] Blood Line / Unknown 04/03/2025 3: 49 AM EDT 04/03/2025 3:55 AM EDT Alonso Cameron APRN LAB BLOOD ORDERABLES Nazanin l Result Performing Organization Address [facility] de Phone Number [facility]
[address] [place] [address], * Magnesium (04/03/2025 3:49 AM EDT) Only the most recent of4 resultswithin the time period is included. Magnesium 2.0 1.6 - 2.4 mg/dL 04/03/2025 4:15 AM EDT [facility] Blood Line / Unknown 04/03/2025 3: 49 AM EDT 04/03/2025 3:55 AM EDT Dmitry Nicolas MD LAB BLOOD ORDERABLES Final Result Performing Organization Address [facility] de Phone Number [facility]
[address] [place] [address], * (ABNORMAL) Basic Metabolic Panel (04/03/2025 3:49 AM EDT) Only the most recent of2 resultswithin the time period is included. Glucose 114(H) 65 - 99 mg/dL 04/03/2025 4:15 AM EDT [facility] BUN 7.6(L) 8.0 - 23.0 mg/dL 04/03/2025 4:15 AM EDT [facility] Creatinine 0.79 0.57 - 1.00 mg/dL 04/03/2025 4:15 AM EDT [facility] Sodium 138 136 - 145 mmol/L 04/03/2025 4:15 AM EDT [facility] Potassium 3.8 3.5 - 5.2 mmol/L 04/03/2025 4:15 AM EDT [facility] Chloride 106 98 - 107 mmol/L 04/03/2025 4:15 AM EDT [facility] CO2 22.7 22.0 - 29.0 mmol/L 04/03/2025 4:15 AM EDT [facility] Calcium 9.0 8.6 - 10.5 mg/dL 04/03/2025 4:15 AM EDT [facility] BUN/Creatinine Ratio 9.6 7.0 - 25.0 04/03/2025 4:15 AM EDT [facility] Anion Gap 9.3 5.0 - 15.0 mmol/L 04/03/2025 4:15 AM EDT [facility] eGFR 81.6 >60.0 mL/min/1.7 3 04/03/2025 4:15 AM EDT [facility] Blood Line / Unknown 04/03/2025 3: 49 AM EDT 04/03/2025 3:55 AM EDT [facility] - 04/03/2025 4:15 AM EDT [...] include race as a factor Alonso Cameron LINE SERVICE SUPERVISOR LAB BLOOD ORDERABLES Nazanin l Result [facility]
[address] [place] [address], * CT Head Without Contrast (04/01/2025 11:40 [...] MD 04/01/2025 11:48 AM EDT Workstation ID: [id number] Artie 04/01/2025 11:[address] HEAD [...] MD 04/01/2025 11:48 AM EDT Workstation ID: [id number] us Lowellprasanna Do DO IMG CT ORDERABLES [...] MD 04/01/2025 7:52 AM EDT Workstation ID: [id number] Narrative 04/01/2025 7:52 AM EDT XR CHEST [...] in the right midlung. Electronically Signed: Adrián Puir MD 04/01/2025 7:52 AM EDT Workstation ID: [id number] Narda Davila PA-C IMG DIAGNOSTIC IMAGING ORDERABLE S Final Result * (ABNORMAL) Blood Gas, Arterial With Co-Ox (04/01/2025 3:40 AM EDT) Only the most recent of2 resultswithin the time period is included. Site Left Radial 04/01/2025 3:41 AM EDT [facility] RESPIRATORY THERAPY Henok's Test Positive 04/01/2025 3:41 AM EDT [facility] RESPIRATORY THERAPY pH, Arterial 7.416 7.350 - 7.450 pH units 04/01/2025 3:41 AM EDT [facility] RESPIRATORY THERAPY pCO2, Arterial 34.0(L) 35.0 - 45.0 mm Hg 04/01/2025 3:41 AM EDT [facility] RESPIR[facility]ORY THERAPY Comment:84 Value below refer ence range pO2, Arterial 87.7 83.0 - 108.0 mm Hg 04/01/2025 3:41 AM EDT [facility] RESPIR[facility]ORY THERAPY HCO3, Arterial 21.9 20.0 - 26.0 mmol/L 04/01/2025 3:41 AM EDT [facility] RESPIRATORY THERAPY Base Excess, Arterial -2.2(L) 0.0 - 2.0 mmol/L 04/01/2025 3:41 AM EDT [facility] RESPIRATORY THERAPY Hemoglobin, Blood Gas 10.2(L) 14 - 18 g/dL 04/01/2025 3:41 AM EDT [facility] RESPIRATORY THERAPY Comment:84 Value below refer ence range Hematocrit, Blood Gas 31.2(L) 38.0 - 51.0 % 04/01/2025 3:41 AM [facility] RESPIRATORY THERAPY Oxyhemoglobin 95.1 94 - 99 % 04/01/2025 3:41 AM [facility] RESPIRATORY THERAPY Methemoglobin 0.40 0.00 - 1.50 % 04/01/2025 3:41 AM [facility] RESPIRATORY THERAPY Carboxyhemoglobin 1.6 0 - 2 % 3:41 AM T [facility] RESPIRATORY THERAPY CO2 Content 22.9 22 - 33 mmol/L 04/01/2025 3:41 AM [facility] RESPIRATORY THERAPY Temperature 37.0 04/01/2025 3:41 AM [facility] RESPIRATORY THERAPY Barometric Pressure for Blood Gas 04/01/2025 3:41 AM [facility] RES[facility] THERAPY Comment:N/A Modality Ventilator 04/01/2025 3:41 AM [facility] RESPIRATORY THERAPY FIO2 30 % 04/01/2025 3:41 AM [facility] RESPIRATORY THERAPY Ventilator Mode VC+/AC 3:41 AM [facility] RES[facility]IR[facility] THERAPY Set Tidal Volume 0.42 04/01/20 3:41 AM [facility] RESPIR[facility]ORY THERAPY Rate 14 Breaths/ minute 04/01/2025 3:41 AM [facility] RESPIRATORY THERAPY PEEP 5.0 04/01/2025 3:41 AM [facility] RESPIRATORY THERAPY PIP 0 cmH2O 04/01/2025 3:41 AM [facility] RES[facility]IR[facility] THERAPY Comment:Meter: [id number] Reach Truck Operator: [id number] IPAP 0 04/01/2025 3:41 AM [facility] RESPIRATORY THERAPY EPAP 0 04/01/2025 3:41 AM [facility] RESPIR[facility]ORY THERAPY pH, Temp Corrected 7.416 pH Units 2024 3:41 AM [facility] RESPIRATORY THERAPY pCO2, Temperature Corrected 34.0(L) 35 - 45 mm Hg 04/01/2025 3:41 AM EDT [facility] RESPIRATORY THERAPY pO2, Temperature Corrected 87.7 83 - 108 mm Hg 04/01/2025 3:41 AM EDT [facility] RESPIRATORY THERAPY Arterial Blood 04/01/2025 3: 40 AM EDT 04/01/2025 3:40 AM EDT us Pk Mckeon MD LAB BLOOD ORDERABLES Final R esult [facility] RESPIRATORY THERAPY
[address] [place] [address], [place] * MRI Brain Without Contrast (03/31/2025 [...] than right. Findings were communicated to the group rooms coordinator, Horace at 6:03 a.m. at the [...] than right. Findings were communicated to the group rooms coordinator, Horace at 6:03 a.m. atthe time of interpretation Electronically Signed: Pérez Ardon MD 04/01/2025 6:05 AM EDT Workstation ID: [id number] Lowell Do DO IMG MRI ORDERABLES Final Result * Type & Screen (03/31/2025 3:22 PM EDT) ABO Type A 03/31/2025 4:13 PM EDT [facility] RH type Positive 03/31/2025 4:13 PM EDT [facility] Antibody Screen Negative 03/31/2025 4:13 PM EDT [facility] T&S Expiration Date 04/03/2025 11:59:59 PM 03/31/2025 4:13 PM EDT [facility] Blood Venipuncture / Unknown 03/31/2025 3:22 PM EDT 03/31/2025 3:41 PM EDT us Pk Mckeon MD BLOOD BANK TEST ORDERABLES E dited Result - Final [facility]
[address] [place] [address], [place] [phone] * Folate (03/31/2025 3:22 PM EDT) Folate >20.00 4.78 - 24.20 ng/mL 03/31/2025 9:06 PM EDT [facility] Blood Venipuncture / Unknown 03/31/2025 3:22 PM EDT 03/31/2025 3:38 PM EDT Narrative [facility] - 03/31/2025 9:06 PM EDT Results may be falsely increased if patient taking Biotin. us Pk Mckeon MD LAB BLOOD ORDERABLES Final R esult [facility]
[address] [place] [address], [place] [phone] * Vitamin B12 (03/31/2025 3:22 PM EDT) Vitamin B-12 345 211 - 946 pg/mL 03/31/2025 9:06 PM EDT [facility] Blood Venipuncture / Unknown 03/31/2025 3:22 PM EDT 03/31/2025 3:38 PM EDT Narrative [facility] - 03/31/2025 9:06 PM EDT Results may be falsely increased if patient taking Biotin. Pk Mckeon MD LAB BLOOD ORDERABLES Final R esult Performing Organization Address [facility] Co de Phone Number [facility]
[address] [place] [address], * EEG AWAKE OR DROWSY PORTABLE (03/31/2025 2:20 PM EDT) Impressions NEUROLOGY - 03/31/2025 4:32 PM EDT Diffuse cerebral dysfunction of mild-moderate degree, nonspecific but most commonly seen due to toxic/metabolic or hypoxemic cause No ongoing seizures are present This report is transcribed using the [employer] dictation system. Narrative NEUROLOGY - 03/31/2025 4:32 [...] ORDERABLES Final Resul t Performing Organization Address City/[facility] Co de Phone Number [facility] * MRSA Screen, PCR (Inpatient) - Swab, Nares (03/31/2025 2:09 PM EDT) MRSA PCR Negative Negative CEPHEID GENEXPERT 03/31/2025 3:37 PM EDT [facility] Swab Structure of anterior naris / Unknown Collection / Unknown 03/31/2025 2:09 PM EDT 03/31/2025 2:24 PM EDT Narrative [facility] - 03/31/2025 3:37 PM EDT The negative predictive value of this diagnostic test is high and should only be used to consider de-escalating anti-MRSA therapy. A positive result may indicate colonization with MRSA and must be correlated clinically. MRSA Negative Pk Mckeon MD MICROBIOLOGY - GENERAL ORDER LORENA Final Result [facility]
[address] [place] [address], * XR Abdomen KUB (03/31/2025 12:58 PM EDT) Anatomical Region Laterality Modality Body, Abdomen N/A Radiographic Gerri ging 03/31/2025 1:12 PM EDT Impressions 03/31/2025 1:13 PM EDT Impression: 1.Nasogastric tube tip is within the stomach. 2.Atelectatic changes suggested in the visualized lower lungs. Electronically Signed: Marques Roberto MD 03/31/2025 1:13 PM EDT Workstation ID: [id number] Narrative 03/31/2025 1:13 PM EDT XR ABDOMEN [...] MD 03/31/2025 1:13 PM EDT Workstation ID: [id number] Pk Mckeon MD IMG DIAGNOSTIC IMAGING ORDER LORENA Final Result * Blood Culture - Blood, Hand, Right (03/31/2025 12:40 PM EDT) Only the most recent of2 resultswithin the time period is included. Blood Culture No growth at 5 days 04/05/2025 1:46 PM EDT [facility] Blood Structure of right hand / Unknown Venipuncture / Unknown 03/31/2025 12:40 PM EDT 03/31/2025 1:32 PM EDT Narda Davila PA-C MICROBIOLOGY - GENERAL ORDERABLE S Final Result [facility]
[address] [place] [address], * (ABNORMAL) TSH Rfx On Abnormal To Free T4 (03/31/2025 12:04 PM EDT) TSH 4.410(H) 0.270 - 4.200 uIU/mL 03/31/2025 12:44 PM EDT [facility] Blood Line / Unknown 03/31/2025 12 :04 PM EDT 03/31/2025 12:09 PM EDT us Pk Mckeon MD LAB BLOOD ORDERABLES Final R esult [facility]
[address] [place] [address], * ABO RH Specimen Verification (03/31/2025 12:04 PM EDT) ABO Type A 03/31/2025 11:45 PM EDT [facility] RH type Positive 03/31/2025 11:45 PM EDT [facility] Blood Venipuncture / Unknown 03/31/2025 12:04 PM EDT 03/31/2025 3:49 PM EDT us Pk Mckeon MD BLOOD BANK TEST ORDERABLES F inal Result Performing Organization Address [facility]/ZIP Co de Phone Number [facility]
[address] [place] [address], * (ABNORMAL) Procalcitonin (03/31/2025 12:04 PM EDT) Procalcitonin 0.35(H) 0.00 - 0.25 ng/mL 03/31/2025 12:41 PM EDT [facility] Blood Line / Unknown 03/31/2025 12 :04 PM EDT 03/31/2025 12:09 PM EDT Narrative [facility] - 03/31/2025 12:41 PM EDT [...] Day 4 values are available. Refer to [email or web address]-wca-[email or web address].[email or web address] Change in PCT <=80% A decrease of [...] ORDERABLES Final R esult Performing Organization Address City/[facility] Co de Phone Number [facility]
[address] [place] [address], * Iron Profile w/o Ferritin (03/31/2025 12:04 PM EDT) [facility] Iron 117 37 - 145 mcg/dL 03/31/2025 1:29 PM EDT [facility] Iron Saturation (TSAT) 27 20 - 50 % 03/31/2025 1:29 PM EDT [facility] Transferrin 290 200 - 360 mg/dL 03/31/2025 1:29 PM EDT [facility] TIBC 432 298 - 536 mcg/dL 03/31/2025 1:29 PM EDT [facility] Blood Line / Unknown 03/31/2025 12 :04 PM EDT 03/31/2025 12:09 PM EDT us Pk Mckeon MD LAB BLOOD ORDERABLES Final R esult Performing Organization Address City/[facility]/ZIP Co de Phone Number [facility]
[address] [place] [address], * (ABNORMAL) Reticulocytes (03/31/2025 12:04 PM EDT) Reticulocyte % 3.55(H) 0.70 - 1.90 % 03/31/2025 1:09 PM EDT [facility] Reticulocyte Absolute 0.1250 0.0200 - 0.1300 10*6/mm3 03/31/2025 1:09 PM EDT [facility] Blood Line / Unknown 03/31/2025 12 :04 PM EDT 03/31/2025 12:10 PM EDT us Pk Mckeon MD LAB BLOOD ORDERABLES Final R esult [facility]
[address] [place] [address], * T4, Free (03/31/2025 12:04 PM EDT) Free T4 1.15 0.92 - 1.68 ng/dL 03/31/2025 1:10 PM EDT [facility] Blood Line / Unknown 03/31/2025 12 :04 PM EDT 03/31/2025 12:09 PM EDT us Pk Mckeon MD LAB BLOOD ORDERABLES Final R esult [facility]
[address] [place] [address], * BNP (03/31/2025 12:04 PM EDT) proBNP 878.0 0.0 - 900.0 pg/mL 03/31/2025 12:41 PM EDT [facility] Blood Line / Unknown 03/31/2025 12 :04 PM EDT 03/31/2025 12:09 PM EDT Narrative [facility] - 03/31/2025 12:41 PM EDT [...] ORDERABLES Final R esult Performing Organization Address City/[facility]/ZIP Co de Phone Number [facility]
[address] [place] [address], * Lactic Acid, Plasma (03/31/2025 12:04 PM EDT) Lactate 2.0 0.5 - 2.0 mmol/L 03/31/2025 12:31 PM EDT [facility] Comment:Falsely depressed re sults may occur on samples drawn from patients receiving N-Acetylcysteine (NAC) or Metamizole. Blood Line / Unknown 03/31/2025 12 :04 PM EDT 03/31/2025 12:09 PM EDT us Pk Mckeon MD LAB BLOOD ORDERABLES Final R esult [facility]
[address] [place] [address], * Hemoglobin A1c (03/31/2025 12:04 PM EDT) Hemoglobin A1C 5.33 4.80 - 5.60 % 03/31/2025 12:58 PM EDT [facility] Blood Line / Unknown 03/31/2025 12 :04 PM EDT 03/31/2025 12:10 PM EDT Narrative [facility] - 03/31/2025 12:58 PM EDT Hemoglobin A1C Ranges: Increased Risk for Diabetes 5.7% to 6.4% Diabetes >= 6.5% Diabetic Goal < 7.0% us Pk Mckeon MD LAB BLOOD ORDERABLES Final R esult Performing Organization Address City/[facility]/ZIP Co de Phone Number [facility]
[address] [place] [address], * Ferritin (03/31/2025 12:04 PM EDT) Ferritin 45.20 13.00 - 150.00 ng/mL 03/31/2025 1:29 PM EDT [facility] Blood Line / Unknown 03/31/2025 12 :04 PM EDT 03/31/2025 12:09 PM EDT Narrative [facility] - 03/31/2025 1:29 PM EDT Results may be falsely decreased if patient taking Biotin. us Pk Mckeon MD LAB BLOOD ORDERABLES Final R esult Performing Organization Address City/[facility]/ZIP Co de Phone Number [facility]
[address] [place] [address], * (ABNORMAL) CK (03/31/2025 12:04 PM EDT) Creatine Kinase 215(H) 20 - 180 U/L 03/31/2025 12:41 PM EDT [facility] Blood Line / Unknown 03/31/2025 12 :04 PM EDT 03/31/2025 12:09 PM EDT us Pk Mckeon MD LAB BLOOD ORDERABLES Final R esult Performing Organization Address City/[facility]/ZIP Co de Phone Number [facility]
[address] [place] [address], [place] [phone] * (ABNORMAL) Urinalysis, Microscopic Only - Urine, Clean Catch (03/31/2025 11:33 AM EDT) RBC, UA 6-10(A) None Seen, 0-2 /HPF 03/31/2025 12:30 PM EDT [facility] WBC, UA 6-10(A) None Seen, 0-2 /HPF 03/31/2025 12:30 PM EDT [facility] Bacteria, UA Trace(A) None Seen /HPF 03/31/2025 12:30 PM EDT [facility] Squamous Epithelial Cells, UA 0-2 None Seen, 0-2 /HPF 03/31/2025 12:30 PM EDT [facility] Renal Epithelial Cells, UA 0-2 0 - 2 /HPF 03/31/2025 12:30 PM EDT [facility] Hyaline Casts, UA 7-12 None Seen /LPF 03/31/2025 12:30 PM EDT [facility] Methodology Manual Light Microscopy 03/31/2025 12:30 PM EDT [facility] Urine Urine specimen obtained by clean catch procedure / Unknown Collection / Unknown 03/31/2025 11:33 AM EDT 03/31/2025 11:44 AM EDT Pk Mckeon MD URINE ORDERABLES Final Resul t [facility]
[address] [place] [address], * (ABNORMAL) Urinalysis With Microscopic If Indicated (No Culture) - Urine, Clean Catch (03/31/2025 11:33 AM EDT) Color, UA Yellow Yellow, Straw 03/31/2025 12:31 PM EDT [facility] Appearance, UA Clear Clear 03/31/2025 12:31 PM EDT [facility] pH, UA 6.5 5.0 - 8.0 03/31/2025 12:31 PM EDT [facility] Specific [place], UA >1.030(H) 1.005 - 1.030 03/31/2025 12:31 PM EDT [facility] Glucose, UA Negative Negative 03/31/2025 12:31 PM EDT [facility] Ketones, UA Negative Negative 03/31/2025 12:31 PM EDT [facility] Bilirubin, UA Negative Negative 03/31/2025 12:31 PM EDT [facility] Blood, UA Small (1+)(A) Negative 03/31/2025 12:31 PM EDT [facility] Protein, UA 100 mg/dL (2+)(A) Negative 03/31/2025 12:31 PM EDT [facility] Leuk Esterase, UA Small (1+)(A) Negative 03/31/2025 12:31 PM EDT [facility] Nitrite, UA Negative Negative 03/31/2025 12:31 PM EDT [facility] Urobilinogen, UA 1.0 E.U./dL 0.2 - 1.0 E.U./dL 03/31/2025 12:31 PM EDT [facility] Urine Urine specimen obtained by clean catch procedure / Unknown Collection / Unknown 03/31/2025 11:33 AM EDT 03/31/2025 11:44 AM EDT us Pk Mckeon MD URINE ORDERABLES Final Resul t [facility]
[address] [place] [address], * Respiratory Culture - Sputum, ET Suction (03/31/2025 11:33 AM EDT) Respiratory Culture Light growth (2+) Normal respiratory marva. No S. aureus or Pseudomonas aeruginosa detected. Final report. ANIVAL 04/02/2025 11:36 AM EDT [facility] Gram Stain Few (2+) WBCs per low power field 04/02/2025 11:36 AM EDT [facility] Gram Stain No Epithelial cells per low power field 04/02/2025 11:36 AM EDT [facility] Gram Stain Few (2+) Gram positive bacilli 04/02/2025 11:36 AM EDT [facility] Sputum Tracheal structure / Unknown Collection / Unknown 03/31/2025 11:33 AM EDT 03/31/2025 11:38 AM EDT us Narda Davila PA-C MICROBIOLOGY - GENERAL ORDERABLE S Final Result [facility]
[address] [place] [address], [place] [phone] [facility]
[address] [place] [address], * XR Outside Chest (03/31/2025 12:15 AM [...] or is breathing): Full Support Care Teams Research Animal Facility Supervisor Relationship Specialty Start Date End Date Provider, No Known [facility] [place] [address] PCP - General 03/31/25
--- OUTSIDE RECORDS SUMMARY | 2025-05-30 07:41 | XMS_ITS | Encounter Summary ---
Author Organization [facility] Address [address] [place] [address] Care Team Providers Care Ladies' Locker Room Attendant Name Role Phone Provider, No Known Primary [...] and heating? Not hard at all 04/01/2025 [facility] [place] [facility] Occup[facility] ional [facility] - Occupational Stress [...] things needed for daily living? No 04/01/2025 [facility] Utilities Answer Date Recorded In the [...] GED or equivalent No 04/01/2025 Preferred Language French 04/01/2025 Comments Unknown Sex and Gender Information Value Date Recorded Sex Assigned at Not on file Legal Sex Female 8:13 AM EDT Gender Identity Not on file Sexual Orientation Not on file documented as of this encounter Plan of Treatment Upcoming Encounters Date Type Department Care Team (Late st Contact Info) Description 09/19/2025 2:30 PM EDT Office Visit [facility] [address] [facility] [address] Radha Morales, GIOVANI [address] [facility] [address] [place] [phone] documented as of this encounter Visit Diagnoses Not on filedocumented in this encounter Care Teams Ladies' Locker Room Attendant Relationship Specialty Start Date End Date Provider, [place] [address] PCP - General 03/31/25 documented as of this encounter
--- OUTSIDE RECORDS SUMMARY | 2025-05-30 07:43 | XMS_ITS ---
Author Organization Unknown ENCOUNTERS Encounter Performer Location Date Diagnosis Diagnosis Status Inpatient [facility] [address] [place] [address] [id number] Outpatient [facility] [address] [address] [place] [address] [id number] Emergency [facility] [address] [address] [place] [address] [id number] A Pre Admit [facility] [address] [place] [address] [id number] Emergency [facility] [address] [address] [place] [address] [id number] XOTH Pre Admit [facility] [address] [address] [place] [address] [id number] Inpatient [facility] [address] [place] [address] [id number] [place] Outpatient [facility] [address] [place] [address] [id number] Emergency [facility] [address] [address] [place] [address] [id number] Pre Admit [facility] [address] [place] [address] [id number] Pre Admit [facility] [address] [place] [address] [id number] Emergency [facility] [address] [place] [address] [id number] [place] Outpatient [facility] [address] [place] [address] [id number] Inpatient [facility] [address] [place] [address] [id number] [facility] Emergency [facility] [address] [place] [address] [id number] A Pre Admit [facility] [address] [place] [address] [id number] Outpatient Adrián P[facility]rez [place] [address] [place] [address] [id number] [place] Emergency [place] [address] [place] [address] [id number] Pre Admit [place] [address] [place] [address] [phone] *Note: Encounters from your own facility or health system may be excluded. Allergies, Adverse Reactions, Alerts Allergen Type Severity Identification Date Medications Name Date Quantity Days Supplied GPI Number
--- OUTSIDE RECORDS SUMMARY | 2025-05-30 07:43 | XMS_ITS | Clinical Summary ---
Author Organization Healthcare Address [address] [place] [address] Care Team Providers Care Snow Technician Name Role Phone Adrián Triana MD Primary Care Provider [phone] Social History Tobacco Use Types Packs/Day Years [...] of Treatment Not on file Care Teams Snow Technician Relationship Specialty Start Date End Date Adrián Triana MD [address] [place] [id number] PCP - General 10/24/20
[2025-05-30 08:00] VITALS: BP 140/99; PULSE 92; RESP 20; TEMP 36.9; O2SAT 98
[2025-05-30 08:13] LABS: Magnesium 1.4 mg/dl (1.6-2.3)
[2025-05-30] MEDS: LEVOTHYROXINE 75MCG (0.075MG) TAB 75 MCG PO (08:43)
[2025-05-30] MEDS: NICOTINE 21MG/24HR PATCH 21 MG TD (08:43)
--- NOTE | 2025-05-30 09:23 | HMH.PTEV ---
Physical Therapy Evaluation Rehab PT IP Evaluation Start: 05/29/25 18:54 Freq: ONCE Status: Active Protocol: Document 05/30/25 09:16 MAKSIM (Rec: 05/30/25 09:23 MAKSIM [id number]) Subjective/History History History Per H&P: *History of present illness: Julia Sow is a 70-year-old female with past medical history significant for alcohol abuse, hypothyroidism, anemia and failure to thrive. Presents to [facility] after being found down by her . EMS notified and transferred patient to our facility for further evaluation. Upon arrival to the emergency department she was alert and oriented x 4. Denies events that led to her being found down. EMS noted patient to be tachycardic en route to the hospital, otherwise vitals stable. Patient with significant history of alcohol abuse. Alcohol level 307 per ED workup. Notable left-sided facial hematoma. Reports mild tenderness to mid back region. Admits consuming vodka recently, states last drink yesterday. Presents tremulous, noting generalized unwell feeling. Per chart review pt. underwent similar episode March 2025 . She was found down with altered mental status secondary to alcohol withdrawal requiring intubation. Denies fever, chills, chest pain, shortness of breath, hemoptysis, urinary symptoms. ED workup included laboratory and imaging studies. Significant laboratory findings included platelet count 111, lactic acid 3.1, magnesium 1.1, AST 63, alkaline phos 196, plasma serum alcohol level 307. I personally reviewed all imaging studies which included, CT head, which was without any acute findings. CT cervical spine without acute findings. CT abdomen and pelvis revealing hepatomegaly, mild bilateral hydronephrosis slightly greater on the right. Enlarged fibroid uterus . Multiple masses throughout uterus. Suggestive of enlarged leiomyomatosis uterus. Lung nodules right and left lobe. Chest CTA revealing multifocal patchy ground glass airspace opacity right and left lung. Cholelithiasis and hepatic steatosis. Upon assessment of patient at bedside she was without acute distress. Notable tremors. Left-sided facial hematoma. Currently without complaint. Hemodynamically stable. Subjective Subjective PLOF: IND with mobility without AD use. Owns a RW but furniture walks . One fall in past [address]. HOME: Lives with her in a home with 3 HERRERA. ASSIST: is [facility]01[facility] How much help from another person do you currently need... Turning from your A little back to your side while in a flat bed without using bedrails? Moving from lying on A little back to sitting on the side of a flat bed without using bedrails? Moving to and from a A little bed to a chair ( including a wheelchair)? Standing up from a A little chair using your arms? (e.g., wheelchair, bedside chair) Walking in hospital A little room? Climbing 3-5 steps A little with a railing? Mobility Score 18 Mobility Level [facility] Mobility 6 Walk 10 steps or more Mobility Calculator Rehab PT IP Eval Objective Appearance Patient Behavior Appropriate,Cooperative Patient Orientation Person Difficulty following none instructions Speech Pattern Clear Ambulation Patient Able to Yes Ambulate Ambulation Observation IP General Gait Narrow Based Gait Pattern Observation Ambulation Distance 25 (feet) Ambulation Assistive Rolling Walker Device Ambulation Ability Contact Guard/Hand Hold,Minimal x 1 (25% assist) Balance Ability to Arise Able, uses arms to help Sitting Balance Steady, safe Standing Balance Steady, wide stance Dynamic Sitting Good Balance Ability Dynamic Standing Fair Balance Ability Transfers Bed Transfer Ability Minimal x 1 (25% assist) Sit to Stand Bed Supervision/Stand by Transfer Ability Rehab PT IP prob,goals,plan Problems Date of Evaluation: 05/30/25 PT IP Problems Bed Mobility,Transfers,Gait,Balance,Self care,Safety Rehab Potential Rehab Potential Good Plan PT Intervention Plan Bed Mobility,Transfers,Gait,Safety,Therapeutic Exercise Other Intervention 1-2 times Plan PT Plan Frequency Daily Duration LOS Discharge Goals Bed Transfer Ability Supervision/Stand by Sit to Stand Chair Supervision/Stand by Transfer Ability Ambulation Distance 50 (feet) Discharge Plan PT Discharge Plan Pt most appropriate for d/c home with 24/7 assist d/t impaired mobility and decreased safety awareness. If pt does not have 24/7 assist, pt most appropriate for rehab placement. Pt would benefit from skilled PT while at [facility] to address deficits and prevent further functional decline . Eval Complexity Eval Charge Codes 83532 - Moderate Complexity PHYSICIAN CERTIFICATION: I certify the specified therapy services for Julia Jaime are required, authorized, and reviewed every 30 days.
--- NOTE | 2025-05-30 09:29 | HMH.OTEV ---
OT Evaluation Rehab OT IP Evaluation Start: 05/29/25 18:54 Freq: ONCE Status: Active Protocol: Document 05/30/25 09:22 [facility] (Rec: 05/30/25 09:29 [facility] [id number]) Rehab OT IP Assessment Subjective History Pt admitted on 05/29/25 due to alcohol withdrawal. Pt oriented x 2 on arrival. History and physical: Julia Sow is a 70-year-old female with past medical history significant for alcohol abuse, hypothyroidism, anemia and failure to thrive. Presents to [facility] after being found down by her . EMS notified and transferred patient to our facility for further evaluation. Upon arrival to the emergency department she was alert and oriented x 4. Denies events that led to her being found down. EMS noted patient to be tachycardic en route to the hospital, otherwise vitals stable. Patient with significant history of alcohol abuse. Alcohol level 307 per ED workup. Notable left-sided facial hematoma. Reports mild tenderness to mid back region. Admits consuming vodka recently, states last drink yesterday. Presents tremulous, noting generalized unwell feeling. Per chart review pt. underwent similar episode March 2025 . She was found down with altered mental status secondary to alcohol withdrawal requiring intubation. Denies fever, chills, chest pain, shortness of breath, hemoptysis, urinary symptoms. ED workup included laboratory and imaging studies. Significant laboratory findings included platelet count 111, lactic acid 3.1, magnesium 1.1, AST 63, alkaline phos 196, plasma serum alcohol level 307. I personally reviewed all imaging studies which included, CT head, which was without any acute findings. CT cervical spine without acute findings. CT abdomen and pelvis revealing hepatomegaly, mild bilateral hydronephrosis slightly greater on the right. Enlarged fibroid uterus . Multiple masses throughout uterus. Suggestive of enlarged leiomyomatosis uterus. Lung nodules right and left lobe. Chest CTA revealing multifocal patchy ground glass airspace opacity right and left lung. Cholelithiasis and hepatic steatosis. Upon assessment of patient at bedside she was without acute distress. Notable tremors. Left-sided facial hematoma. Currently without complaint. Hemodynamically stable. Subjective Prior to being in the hospital, pt lived at home with her . Pt reports she is normally independent with all ADLs (bathing, dressing, and feeding), but is dependent upon for completion of all IADLs. Pt reports she uses a rolling walker intermittently at home, but does have difficulty with transfers. Pt lives in a one story home without steps to enter. Pt no longer drives. Pt does have poor eye sight. Objective Patient Orientation Person,Birthday Right Upper WFL Extremity Gross ROM Left Upper Extremity WFL Gross ROM Bed Mobility bed mobility-scooting,bed mobility - supine/sit Assist Level Minimal x 1 (25% assist) Transfer Training Sit/Stand Transfer Assist Level Minimal x 1 (25% assist) Chair Transfer Minimal x 1 (25% assist) Ability Lower Body Dressing Minimal Assistance Ability Rehab OT IP prob,goals,plan Problems Date of Evaluation: 05/30/25 OT IP Problems Bed Mobility,Transfers,Balance,Self care,Safety Rehab Potential Rehab Potential Good Equipment Needs Assistive Devices Standard Walker Plan OT intervention Plan Bed Mobility,Transfers,Balance,Self care,Safety, Therapeutic Exercise OT Plan Frequency Daily Duration LOS Discharge Goals Bed Mobility Ability Standby Assistance Sit to Stand Chair Contact Guard/Hand Hold Transfer Ability Chair Transfer Contact Guard/Hand Hold Ability Chair Transfer Sit to/from Ambulatory Technique Chair Transfer Rolling Walker Assistive Devices Lower Body Dressing Contact Guard Ability Performing Toilet Contact Guard Hygiene Ability Overall Commode/ Contact Guard Toilet Transfer Ability Commode/Toilet Sit to/from Ambulatory Transfer Technique Discharge Plan OT Discharge Plan Pt will continue to be seen for OT services while at [facility]. Pt would benefit most from short term rehab at [facility] following discharge. However, if pt is reluctant to this plan she could return home with her and 03/01 assist for increased safety. If she returns home therapist recommends OT evaluation for continued skilled therapy services. Eval Complexity Eval Charge Codes 72268 - Moderate Complexity PHYSICIAN CERTIFICATION: I certify the specified therapy services for Julia Jaime are required, authorized, and reviewed every 30 days.
--- NOTE | 2025-05-30 10:20 | SW/DCPLANNER ---
Addendum entered by Yusra Reagan 05/31/25 14:49: [facility] was able to accept patient. Spoke with patient and stated that we were not able to reach and we left a message and patient stated that she does not know husbands number and she does not have a phone. The nurse will get 's number and i will call [facility] with the correct phone number. YayoSamuel Clarke Addendum entered by Yusra Reagan 05/31/25 13:26: I faxed patient's information to [facility]. I will update once i hear back if they can accept patient or not. Bradley Clarke Addendum entered by Yolie Vargas RN 05/31/25 13:06: Patient states she is agreeable to home health services, but to talk to her . Left a message at his number. Addendum entered by Yolie Vargas RN 05/31/25 11:41: Patient is adamant she is no longer agreeable to go to short term rehab. She also is refusing home health services. Discussed with her the importance of therapy and the safest discharge plan. Patient continues to state she will go home. Addendum entered by Yolie Vargas RN 05/31/25 08:11: Sent updated CIWA scores and med list. Patient has been 0-1 CIWA with no IV Ativan. Addendum entered by Arlene Cash 05/30/25 12:35: Leydi hernandez/ [facility] is interested in patient but has requested patient to be off CIWA protocol and IV Ativan w/ updated score prior to accepting. I have updated MD. Original Note: I spoke w/ patient regarding plans once medically stable for discharge. PT/OT evaluated patient and recommended SNF level of care. Patient is agreeable to placement at this time. Patient and I discussed only local option available is [facility] at this time. Patient is agreeable to [facility]. Patient information will be faxed to Leydi hernandez/ [facility]. Discharge date is unknown at this time. CM will continue to follow up.
[2025-05-30 10:29] VITALS: BMI 21.5
[2025-05-30] MEDS: MAGNESIUM SULFATE IN WATER 2 GM/50 ML PIGGYBACK IV ×3 (10:33→14:01)
--- NOTE | 2025-05-30 11:50 | P.PN_ITS ---
Subjective *Date: 05/30/25 *Time: 14:27 Interval history: Patient is feeling mildly better today, alert and oriented. Interested in alcohol rehab. Also interested in skilled rehab. Pending placement. Started IV Zosyn for UTI. Exam Data for Last 24 hours Vital signs and Labs for Last 24 Hours: Temp Pulse Resp BP Pulse Ox O2 Del Method 98.4 F 92 H 20 140/99 H 98 Room Air 05/30/25 08:00 05/30/25 08:00 05/30/25 08:00 05/30/25 08:00 05/30/25 08:00 05/30/25 11:00 Laboratory Results - last 24 hr 05/29/25 15:18: VBG pH 7.37, VBG pCO2 38.4, VBG pO2 47.4 H, VBG HCO3 21.8 L, VBG Total CO2 22.9 L, VBG O2 Saturation 77.0 H, VBG Base Excess -3.5 L, VBG Lactic Acid 6.0 H 05/29/25 15:20: WBC 3.8 L, RBC 3.73 L, Hgb 11.0 L, Hct 33.1 L, MCV 88.7, MCH 29.5, MCHC 33.2, RDW 16.1, Plt Count 111 L, MPV 8.7, Neut % (Auto) 69.5, Lymph % (Auto) 22.7, Burt % (Auto) 5.7, Eos % (Auto) 1.0, Baso % (Auto) 0.8, Neut # (Auto) 2.7, Lymph # (Auto) 0.9, [place] # (Auto) 0.2, Eos # (Auto) 0.0, Baso # (Auto) 0.0, PT 12.8 H, INR 1.17 H, APTT 26.9, Sodium 139, Potassium 4.1, Chloride 103, Carbon Dioxide 21 L, Anion Gap 19.1 H, BUN 14, Creatinine 0.70, Estimated Creat Clear 49, Estimated GFR 83, Est GFR ( Amer) 101, Glucose 111 H, Calcium 10.3 H, Phosphorus 3.2, Magnesium 1.1 L, Total Bilirubin 0.7, AST 63 H, ALT 35, Alkaline Phosphatase 196 H, Total Creatine Kinase 39, Troponin I < 0.01, Total Protein 7.8, Albumin 4.4, Globulin 3.4 H, Albumin/Globulin Ratio 1.3, Lipase 28, TSH 2.55, Thyroxine (T4) 6.4, Plasma/Serum Alcohol 307 H 05/29/25 16:44: Urine Color Yellow, Urine Appearance Clear, Urine pH 5.5, Ur Specific [place] 1.025, Urine Protein 2+ A, Urine Glucose (UA) Negative, Urine Ketones 1+, Urine Blood 1+ A, Urine Nitrate Negative, Urine Bilirubin Negative, Urine Urobilinogen 0.2, Ur Leukocyte Esterase Negative, Urine RBC None, Urine WBC 3-5, Ur Squamous Epith Cells None, Urine Bacteria Trace, Urine Opiates Sc reen Negative, Urine Methadone Screen Negative, Ur Barbituates Screen Negative, Ur Phencyclidine Scrn Negative, Ur Amphetamines Screen Negative, U Benzodiazepines Scrn Negative, Urine Cocaine Screen Negative, U Marijuana (THC) Screen Negative 05/29/25 18:13: Lactate 3.1 H, Troponin I < 0.01 05/29/25 21:37: Lactate 2.3 H, Troponin I < 0.01 05/30/25 00:03: Lactate 1.2 05/30/25 05:30: WBC 2.5 L D, RBC 3.19 L, Hgb 9.5 L D, Hct 27.9 L, MCV 87.5, MCH 29.8, MCHC 34.1, RDW 16.2, Plt Count 92 L, MPV 8.5, Neut % (Auto) 57.6, Lymph % (Auto) 33.1, Burt % (Auto) 6.5, Eos % (Auto) 1.6, Baso % (Auto) 1.2, Neut # (Auto) 1.4 L, Lymph # (Auto) 0.8, Burt # (Auto) 0.2, Eos # (Auto) 0.0, Baso # (Auto) 0.0, Sodium 130 L, Potassium 3.8, Chloride 100, Carbon Dioxide 26, Anion Gap 7.8, BUN 9 D, Creatinine 0.70, Estimated Creat Clear 52, Estimated GFR 83, Est GFR ( Amer) 101, Glucose 100, Calcium 8.6, Magnesium 1.4 L D, Total Bilirubin 0.8, AST 42 H D, ALT 28, Alkaline Phosphatase 162 H, Total Protein 6.6, Albumin 3.7 D, Globulin 2.9, Albumin/Globulin Ratio 1.3 I & O for Last 24 hours: Intake & Output 05/27/25 05/28/25 05/29/25 05/30/25 23:59 23:59 23:59 23:59 Intake Total 2064 330 / 330 Output Total 550 / 550 Balance 2064 -220 / -220 Weight 60.736 kg 60.736 kg Constitutional Constitutional: no acute distress and chronically ill appearing Comments: Bruising over left side of the face. *Routine HEENT Exam Head: Present normocephalic Eye: Present EOMI and PERRL ENT: Present mucous membranes moist *Routine Neck Exam Neck: Present supple; Absent lymphadenopathy *Routine Respiratory Exam Respiratory: Present CTA bilaterally *Routine Cardiovascular Exam Cardiovascular: Present RRR *Routine Abdominal Exam Abdominal: Present soft and normoactive bowel sounds; Absent tenderness *Routine Extremities Exam Extremities: Absent cyanosis, clubbing or edema *Routine Skin Exam Skin: Present warm; Absent rash *Routine Neurological Exam Neurological: Present alert and oriented X3 Assessment and Plan *Assessment and plan (1) Alcohol abuse with intoxication, uncomplicated: Status: Acute Category: Medical Code(s): F10.120 - Alcohol abuse with intoxication, uncomplicated (2) Alcohol withdrawal: Status: Acute Qualifiers: Complication of substance-induced condition: uncomplicated Qualified Code(s): F10.930 - Alcohol use, unspecified with withdrawal, uncomplicated Category: Medical Code(s): F10.939 - Alcohol use, unspecified with withdrawal, unspecified (3) Lactic acidosis: Status: Acute Category: Medical Code(s): E87.20 - Acidosis, unspecified (4) Dehydration: Status: Acute Category: Medical Code(s): E86.0 - Dehydration (5) Hypomagnesemia: Status: Acute Category: Medical Code(s): E83.42 - Hypomagnesemia (6) Fall with injury: Status: Acute Qualifiers: Encounter type: initial encounter Qualified Code(s): W19.XXXA - Unspecified fall, initial encounter Category: Medical Code(s): W19.XXXA - Unspecified fall, initial encounter (7) Facial hematoma: Problem Comment: Left sided Status: Acute Qualifiers: Encounter type: initial encounter Qualified Code(s): S00.83XA - Contusi on of other part of head, initial encounter Category: Medical Code(s): S00.83XA - Contusion of other part of head, initial encounter (8) Generalized weakness: Status: Acute Category: Medical Code(s): R53.1 - Weakness (9) Uterine mass: Status: Acute Category: Medical Code(s): N85.8 - Other specified noninflammatory disorders of uterus (10) Bilateral hydronephrosis: Status: Acute Category: Medical Code(s): N13.30 - Unspecified hydronephrosis (11) Lung nodules: Status: Acute Category: Medical Code(s): R91.8 - Other nonspecific abnormal finding of lung field (12) Hepatomegaly: Status: Acute Category: Medical Code(s): R16.0 - Hepatomegaly, not elsewhere classified (13) Hypothyroidism: Status: Acute Qualifiers: Hypothyroidism type: acquired Qualified Code(s): E03.9 - Hypothyroidism, unspecified Category: Medical Code(s): E03.9 - Hypothyroidism, unspecified (14) GERD (gastroesophageal reflux disease): Status: Acute Qualifiers: Esophagitis presence: without esophagitis Qualified Code(s): K21.9 - Gastro-esophageal reflux disease without esophagitis Category: Medical Code(s): K21.9 - Gastro-esophageal reflux disease without esophagitis Plan Assessment/plan: Management of this patient was discussed with the emergency department provider with agreement for hospital admission, patient/treatment. She is a 70-year-old female with a past medical history significant for alcohol abuse. Patient was found down at home per her . Suspected cause due to alcohol abuse. Alcohol level per ED workup 307. Alert and oriented x 4. Tremulous. Reports last drink yesterday. Notable left-sided facial hematoma likely due to fall. Workup also noted hypomagnesia and lactic acidosis. Imaging studies as noted above without acute finding per head CT. Multiple chronic and possible new non- emergent findings per imaging that include multiple uterine masses, enlarged uterus, bilateral hydronephrosis. Patient received Valium, magnesium 2 g, IV fluid bolus, MVI fluid. Continue monitor/treat withdrawal symptoms. 1. Alcohol use disorder with intoxication/withdrawal symptoms: Alcohol level noted 307 per ED workup. Alert and oriented x 4. Tremulous presentation. Found down at home, left-sided facial hematoma. Imaging studies as noted above without acute finding correlating with presentation. Prior similar episode March 2025 with altered mental status found down secondary to alcohol withdrawal. CIWA initiated while in the emergency department. Folic acid and MVI received initiated in the emergency department. Continue CIWA treat as appropriate for withdrawal symptoms. Patient currently without acute distress resting in bed comfortably. Vitals within normal limit. ?Patient feeling better this morning, no significant withdrawal symptoms. Interested in alcohol rehab, will consult peer support. ? Continue LR at 75 mL for now. Multivitamins daily. 2. Aspiration pneumonitis: Multifocal opacities on CTA chest suggestive of aspiration pneumonitis. No fevers, leukocytosis at this time. Will treat conservatively, treating with antibiotic for UTI as well. 3. UTI: Patient is having dysuria with abnormal UA. Started IV Zosyn day 1. 4. Pulmonary nodules, chronic tobacco smoker: Multiple pulmonary nodules on CTA chest, current tobacco smoker. Started nicotine patch. Will refer to pulmonology for further evaluation and management. 5. Physical deconditioning: PT OT recommended SNF. Case management assisting with placement. 6. Hypomagnesemia: Magnesium 1.4 today, will replete per protocol. 7. Fall with injury/generalized weakness: Suspect underlying alcohol abuse secondary induced factor. As noted above patient with left-sided facial hematoma secondary to fall. Reports mid back discomfort. Imaging as noted above without acute finding per head CT or spine. Fall precautions, PT OT evaluation. 8. Uterine mass/bilateral hydronephrosis/hepatomegaly: Incidental findings per imaging study with numerous calcified masses are present within the uterus. The uterus measures up to 11.8 x 11.6 x 9.0 cm. Findings most compatible with enlarged leiomyomatous uterus. Suggested follow-up nonemergent pelvic ultrasound-and outpatient gynecology follow-up/evaluation. Mild bilateral hydronephrosis, slightly greater on the right. Proximal and mid aspect of the right and left utero are dilated to the level of the pelvis. Partial obstruction of the right and left kidney. As noted will likely need outpatient follow-up with gynecology and/or nephrology. Patient without pain/discomfort. Renal function WNL. Hepatomegaly->borderline enlargement of spleen, varices within the mid upper abdomen. ? [employer] consulted, pending further recommendations. 9. Hypothyroidism: Resume home levothyroxine 75 mcg daily. 10. GERD: Resume home PPI, pantoprazole 40 mg. 11. Severe protein calorie malnutrition: Nutrition consulted, providing recommendations. Full Code DVT prophylaxis: SCD's Regular Diet
[2025-05-30] MEDS: PIPERCILLIN/TAZO 3.375 GM in 0.9 % SODIUM CHLORIDE 50 ML IV ×2 (15:25→23:05)
[2025-05-30 16:00] VITALS: BP 132/68; PULSE 86; RESP 18; TEMP 37; O2SAT 97
--- NOTE | 2025-05-30 17:03 | EXP.GYNCONS ---
History of Present Illness *Admission Date: 05/29/25 *Reason for visit:: Active Labor *History of present illness: Julia Sow is a 70-year-old female with past medical history significant for alcohol abuse, hypothyroidism, anemia and failure to thrive. Presents to [facility] via EMS after being found down by her . Reports that she has not had any bleeding since she went through menopause around 57 years old. She has previously been followed by a auto technician in [place]. States that about 40 years ago she was told that she had a fibroid uterus. It has not caused her any problems. She denies any pelvic pain or pressure. She denies any vaginal or uterine bleeding since going through menopause. She is making urine well and states that she is peeing every 5 minutes. On review her creatinine is within normal limits. She currently is using a pure wick and the urine examined was normal in color and there was a significant amount. Her bowel movements are appropriate and states that they have not changed, the patient reports it is uncommon for her to sometimes go a week without having a bowel movement. States she had a bowel movement a couple days ago. Patient states she does live here in [place] with her . [facility] Disclaimer: The information contained in this section may have been updated after the patient was seen, as this information can be updated by other users. Medical History (Updated 05/29/25 @ 22:36 by Salome Calloway APRN) GERD (gastroesophageal reflux disease) Hypothyroid Alcohol intoxication Encounter for social work intervention Thrombocytopenia Hypokalemia Ground-level fall Surgical History History of tubal ligation Family History Other No significant family history Social History Smoking Status: Current every day smoker alcohol intake: current substance use type: denies use current occupational status: unemployed Travel in the last 8 weeks?: None housing: house Have you lived/traveled outside US in past 30 days?: No Contact w/someone who lives/traveled outside US past 30 days?: No Exposure to someone with infectious disease in past 14 days?: No Do you have a fever (greater than 100.4 F or 38 C)?: No Have you tested positive for COVID-19?: No Exposed to someone with COVID-19 in past 14 days?: No Do you have a sore throat?: No Do you have a cough?: No Do you have any weakness?: No Are you experiencing any nausea/vomitting?: No Do you have any diarrhea?: No Are you experiencing any unusual bleeding?: No Do you have any muscle aches/pain?: No Do you have any abdominal pain?: No Are you experiencing loss of taste or smell?: No Review of Systems Review of Systems Review of systems (narrative): Review of Systems Constitutional: Denies fever, chills, and sweats Eyes: Denies vision change/ pain Respiratory: Denies cough and shortness of breath Cardiovascular: Denies chest pain and lightheadedness Gastrointestinal: Denies abdominal pain. Denies nausea, vomiting. Genitourinary: Denies dysuria and incontinence Musculoskeletal: Denies shoulder pain and back pain Neurological: Denies change in speech or headaches *Neurologic Neurologic: Reports as per [facility] Meds Home Medications and Allergies Home Medications ?Medication ?Instructions ?Recorded ?Confirmed ?Type pantoprazole 40 mg tablet,delayed 40 mg PO HS 30 days #30 tabs 09/14/24 05/30/25 Rx release levothyroxine 75 mcg tablet 75 mcg PO DAILY #30 tabs 01/04/25 05/30/25 Rx (Synthroid) New Prescriptions to Start Prescriptions: Allergies Allergy/AdvReac Type Severity Reaction Status Date / Time No Known Allergies Allergy Verified 07/26/24 16:27 Exam (Inpt) Vital signs and Labs for Last 24 Hours: Temp Pulse Resp BP Pulse Ox O2 Del Method 98.6 F 86 18 132/68 97 Room Air 05/30/25 16:00 05/30/25 16:00 05/30/25 16:00 05/30/25 16:00 05/30/25 16:00 05/30/25 16:00 Laboratory Results - last 24 hr 05/29/25 16:44: Urine Color Yellow, Urine Appearance Clear, Urine pH 5.5, Ur Specific [place] 1.025, Urine Protein 2+ A, Urine Glucose (UA) Negative, Urine Ketones 1+, Urine Blood 1+ A, Urine Nitrate Negative, Urine Bilirubin Negative, Urine Urobilinogen 0.2, Ur Leukocyte Esterase Negative, Urine RBC None, Urine WBC 3-5, Ur Squamous Epith Cells None, Urine Bacteria Trace, Urine Opiates Screen Negative, Urine Methadone Screen Negative, Ur Barbituates Screen Negative, Ur Phencyclidine Scrn Negative, Ur Amphetamines Screen Negative, U Benzodiazepines Scrn Negative, Urine Cocaine Screen Negative, U Marijuana (THC) Screen Negative 05/29/25 18:13: Lactate 3.1 H, Troponin I < 0.01 05/29/25 21:37: Lactate 2.3 H, Troponin I < 0.01 05/30/25 00:03: Lactate 1.2 05/30/25 05:30: WBC 2.5 L D, RBC 3.19 L, Hgb 9.5 L D, Hct 27.9 L, MCV 87.5, MCH 29.8, MCHC 34.1, RDW 16.2, Plt Count 92 L, MPV 8.5, Neut % (Auto) 57.6, Lymph % (Auto) 33.1, [place] % (Auto) 6.5, Eos % (Auto) 1.6, Baso % (Auto) 1.2, Neut # (Auto) 1.4 L, Lymph # (Auto) 0.8, [place] # (Auto) 0.2, Eos # (Auto) 0.0, Baso # (Auto) 0.0, Sodium 130 L, Potassium 3.8, Chloride 100, Carbon Dioxide 26, Anion Gap 7.8, BUN 9 D, Creatinine 0.70, Estimated Creat Clear 52, Estimated GFR 83, Est GFR ( Amer) 101, Glucose 100, Calcium 8.6, Magnesium 1.4 L D, Total Bilirubin 0.8, AST 42 H D, ALT 28, Alkaline Phosphatase 162 H, Total Protein 6.6, Albumin 3.7 D, Globulin 2.9, Albumin/Globulin Ratio 1.3 I & O for Labs for Last 24 Hours: Intake & Output 05/27/25 05/28/25 05/29/25 05/30/25 23:59 23:59 23:59 23:59 Intake Total 2064 630 / 630 Output Total 1050 / 1050 Balance 2064 -420 / -420 Weight 133 lb 14.4 oz 133 lb 14.4 oz HEENT Head: Present normocephalic and hematoma (noted near left eye) Eyes: Present as per HPI Respiratory: Present CTA bilaterally, normal respiratory effort, able to speak in complete sentences and symmetric chest movement; Absent accessory muscle use Cardiac: Present Reg Rate and Rhythm GI: Present soft and normal bowel sounds; Absent distention, tenderness, guarding or rebound Extremities: Present normal inspection and full ROM Assessment and Plan *Assessment and plan (1) Alcohol abuse with intoxication, uncomplicated: Status: Acute Category: Medical Code(s): F10.120 - Alcohol abuse with intoxication, uncomplicated (2) Facial hematoma: Problem Comment: Left sided Status: Acute Qualifiers: Encounter type: initial encounter Qualified Code(s): S00.83XA - Contusion of other part of head, initial encounter Category: Medical Code(s): S00.83XA - Contusion of other part of head, initial encounter (3) Alcohol intoxication in active alcoholic: Status: Acute Category: Medical Code(s): F10.129 - Alcohol abuse with intoxication, unspecified (4) Uterine mass: Status: Acute Category: Medical Code(s): N85.8 - Other specified noninflammatory disorders of uterus (5) Bilateral hydronephrosis: Status: Acute Category: Medical Code(s): N13.30 - Unspecified hydronephrosis (6) Uterine fibroid: Status: Acute Category: Medical Code(s): D25.9 - Leiomyoma of uterus, unspecified Plan Suspect that this patient's fibroid uterus is a chronic condition. She is not medically optimized for surgery and not a good candidate for major surgery like an abdominal hysterectomy at this time. I did order a transvaginal ultrasound to better evaluate the uterus, this will be completed tomorrow 05/31/2025. While the CT scan had concern for compression of the ureters given that the patient is making urine and the creatinine is appropriate I do not think this makes her a great candidate to go to the OR at this time. Will continue to follow and review the ultrasound with the patient when it returns. The patient will need to see us in an outpatient setting to initiate a workup prior to proceeding with an abdominal hysterectomy. Thank you so much for consulting us and allowing us to be part of this patient's care
[2025-05-30] MEDS: 0.9 % SODIUM CHLORIDE 1000ML 1,000 ML 75 ML IV (17:46)
[2025-05-30 19:53] VITALS: BP 157/71; PULSE 98; RESP 18; TEMP 36.9; O2SAT 100
[2025-05-30] MEDS: PANTOPRAZOLE 40MG TABLET 40 MG PO (20:27)
[2025-05-30] MEDS: MELATONIN 5MG TABLET 5 MG PO (20:50)
[2025-05-31 03:54] VITALS: BP 135/76; PULSE 79; RESP 17; TEMP 37.5; O2SAT 95; BMI 20.7
--- NOTE | 2025-05-31 04:05 | PC.NURSE ---
Addendum entered by Siena Mohan RN 05/31/25 06:30: Patient was complaining of intermittent rib pain during coughing (described as sore and the sensation of after exercising ) this morning. Tylenol administered per MAR at this time. Original Note: Patient is pleasantly alert and oriented x4; short-term memory loss noted, however, patient expresses awareness of this. CIWA scores performed every 4 hours to monitor for alcohol withdrawal symptoms. She has not exhibited any symptoms this shift (headaches, nausea, disorientation, anxiety, perspiration, etc.) other than feeling tremors on occasion. Patient was observed to be resting in bed with eyes closed, respirations even and unlabored on room air, and no apparent distress throughout the majority of the night. Melatonin (new order obtained this shift by A Brodie MATUTE) was administered per MAR as a sleep aid. Seizure precautions ongoing; however, patient refused placement of seizure pads on bed rails. Scheduled medications were administered per MAR. Normal saline continues to infuse at 75 mL/hr. Physical assessment (see nursing shift biophysical intervention) was performed as appropriately this shift. Orbital bruising noted to left eye. Patient gets up with assistance as needed during ambulation/transfers. A female purewick remains in place for urination needs; urine output documented accordingly. She has consumed a couple Pepsi sodas this shift. At this time, the patient remains resting in bed without any further complaints. No acute changes noted thus far. Call light within reach.
[2025-05-31 06:11] LABS: Hematocrit 29.1 % (37.0-47.0); Hemoglobin 9.7 g/dL (12.2-16.2); Immature Granulocytes % 0 %; Mean Corpuscular HGB Conc 33.3 g/dL (31.8-35.4); Mean Corpuscular Hemoglobin 29.8 pg (27.0-31.2); Mean Corpuscular Volume 89.3 fl (81-99); Nucleated Red Blood Cells % 0 %; Platelet Count 75 K/mm3 (142-424); Red Blood Count 3.26 M/mm3 (4.20-5.40); Red Cell Distribution Width-SD 52.6 fL
[2025-05-31] MEDS: LEVOTHYROXINE 75MCG (0.075MG) TAB 75 MCG PO (06:22)
[2025-05-31] MEDS: PIPERCILLIN/TAZO 3.375 GM in 0.9 % SODIUM CHLORIDE 50 ML IV ×3 (06:22→22:14)
[2025-05-31 06:26] LABS: Albumin Level 3.6 g/dl (3.5-5.0); Chloride 103 mmol/L (98-107); Sodium 135 mmol/L (136-145)
[2025-05-31 06:27] LABS: Potassium 4.0 mmoL/L (3.5-5.1)
[2025-05-31 06:29] LABS: Alanine Aminotransferase 22 U/L (12-78); Anion Gap 10.0 mEq/L (5-15); Aspartate Amino Transferase 38 U/L (14-36); Blood Urea Nitrogen 5 mg/dl (7-17); Carbon Dioxide 26 mmol/L (22.0-30.0); Creatinine Clearance Estimated 50 mL/min (50-200); Creatinine,Serum 0.70 mg/dl (0.52-1.04); Estimated Glomerular Filt Rate 83 ml/min (>60); GFR (African American) 101 ML/MIN (>60)
[2025-05-31 06:30] LABS: Albumin/Globulin Ratio 1.2 (1.1-1.8); Alkaline Phosphatase 146 U/L (38-126); Bilirubin,Total 1.0 mg/dl (0.2-1.3); Calcium 9.1 mg/dl (8.4-10.2); Globulin 2.9 g/dL (1.3-3.2); Glucose 122 mg/dl (74-100); Total Protein,Serum 6.5 g/dl (6.3-8.2); White Blood Count 1.7 K/mm3 (4.8-10.8)
[2025-05-31] MEDS: ACETAMINOPHEN 325MG TAB 650 MG PO (06:30)
--- NOTE | 2025-05-31 07:00 | US_ITS ---
PROCEDURE INFORMATION: Exam: US Pelvis, Complete, Non-Obstetric Exam date and time: 05/31/2025 10:38 AM Age: 70 years old Clinical indication: Abnormal findings; Abnormal imaging test; Additional info: Fibroid uterus TECHNIQUE: Imaging protocol: Transabdominal pelvic nonobstetric ultrasound. Complete exam. Real time ultrasound with image documentation. COMPARISON: CT ABDOMEN PELVIS W CON 05/29/2025 4:23 PM FINDINGS: Uterus: Uterus is enlarged and diffusely heterogeneous. Pronounced acoustic shadowing attributed calcified fibroids. 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 Endometrial lining is not well-visualized Right ovary/adnexa: Right ovary is not well-visualized probably attenuated by overlying bowel gas Left ovary/adnexa: Left ovary is not visualized probably attenuated by overlying bowel gas. Intraperitoneal space: No intraperitoneal fluid. Urinary bladder: Normal. IMPRESSION: Diffusely enlarged and heterogeneous uterus. Several (at least 6), calcified intramural fibroids with measurements as above.
[2025-05-31 07:50] LABS: RBC Morphology Normal; Total Cells Counted 50
[2025-05-31 07:59] LABS: Magnesium 1.7 mg/dl (1.6-2.3)
[2025-05-31 08:00] VITALS: BP 131/78; PULSE 80; RESP 16; TEMP 36.8; O2SAT 96
[2025-05-31 08:36] LABS: Magnesium 1.6 mg/dl (1.6-2.3)
[2025-05-31] MEDS: SODIUM CHLORIDE 3% 15ML NEB 3 ML IH (09:49)
[2025-05-31 09:50] VITALS: PULSE 74; RESP 15
--- NOTE | 2025-05-31 10:20 | HMH.PHAAMS2 ---
- Antimicrobial Stewardship Review culture & sensitivity review Stewardship interventions: culture & sensitivity review, reviewed - no change Comments: ON ZOSYN FOR SUSPECTED UTI, NO CULTURES COLLECTED. AFEBRILE OVER 24 HR.
[2025-05-31] MEDS: NICOTINE 21MG/24HR PATCH 21 MG TD (10:38)
--- NOTE | 2025-05-31 12:53 | EXP.PN ---
Subjective *Date: 05/31/25 *Time: 15:18 Interval history: Patient feeling better today overall, no shortness of breath, chest pain. Leukopenia worsening in the setting of aspiration pneumonia, UTI. Continue Zosyn. Follow-up full respiratory panel. Consider vancomycin in the morning if leukopenia worsening. Exam Data for Last 24 hours Vital signs and Labs for Last 24 Hours: Temp Pulse Resp BP Pulse Ox O2 Del Method 99.5 F 74 15 135/76 95 Room Air 05/31/25 03:54 05/31/25 09:50 05/31/25 09:50 05/31/25 03:54 05/31/25 03:54 05/31/25 08:49 Laboratory Results - last 24 hr 05/31/25 05:37: WBC 1.7 L* D, RBC 3.26 L, Hgb 9.7 L, Hct 29.1 L, MCV 89.3, MCH 29.8, MCHC 33.3, RDW 16.1, Plt Count 75 L, MPV 9.3, Neut % (Auto) 53.5, Lymph % (Auto) 36.5, [place] % (Auto) 4.7, Eos % (Auto) 3.5, Baso % (Auto) 1.8, Neut # (Auto) 0.9 L*, Lymph # (Auto) 0.6 L, [place] # (Auto) 0.1, Eos # (Auto) 0.1, Baso # (Auto) 0.0, Total Counted 50, Neutrophils % (Manual) 56, Lymphocytes % (Manual) 38, Monocytes % (Manual) 6, Platelet Estimate Moderate decrease, RBC Morphology Normal, Sodium 135 L, Potassium 4.0, Chloride 103, Carbon Dioxide 26, Anion Gap 10.0, BUN 5 L D, Creatinine 0.70, Estimated Creat Clear 50, Estimated GFR 83, Est GFR ( Amer) 101, Glucose 122 H, Calcium 9.1, Magnesium 1.7 D, Total Bilirubin 1.0, AST 38 H, ALT 22, Alkaline Phosphatase 146 H, Total Protein 6.5, Albumin 3.6, Globulin 2.9, Albumin/Globulin Ratio 1.2 05/31/25 08:19: Magnesium 1.6 I & O for Last 24 hours: Intake & Output 05/28/25 05/29/25 05/30/25 05/31/25 23:59 23:59 23:59 23:59 Intake Total 2064 / 2330 1350 / 1350 Output Total 2049 650 / 650 Balance 2064 - 700 / 700 Weight 60.736 kg 60.736 kg 58.604 kg Constitutional Constitutional: no acute distress and chronically ill appearing Comments: Bruising over left side of the face. *Routine HEENT Exam Head: Present normocephalic Eye: Present EOMI and PERRL ENT: Present mucous membranes moist *Routine Neck Exam Neck: Present supple; Absent lymphadenopathy *Routine Respiratory Exam Respiratory: Present CTA bilaterally *Routine Cardiovascular Exam Cardiovascular: Present RRR *Routine Abdominal Exam Abdominal: Present soft and normoactive bowel sounds; Absent tenderness *Routine Extremities Exam Extremities: Absent cyanosis, clubbing or edema *Routine Skin Exam Skin: Present warm; Absent rash *Routine Neurological Exam Neurological: Present alert and oriented X3 Assessment and Plan *Assessment and plan (1) Alcohol abuse with intoxication, uncomplicated: Status: Acute Category: Medical Code(s): F10.120 - Alcohol abuse with intoxication, uncomplicated (2) Alcohol withdrawal: Status: Acute Qualifiers: Complication of substance-induced condition: uncomplicated Qualified Code(s): F10.930 - Alcohol use, unspecified with withdrawal, uncomplicated Category: Medical Code(s): F10.939 - Alcohol use, unspecified with withdrawal, unspecified (3) Lactic acidosis: Status: Acute Category: Medical Code(s): E87.20 - Acidosis, unspecified (4) Dehydration: Status: Acute Category: Medical Code(s): E86.0 - Dehydration (5) Hypomagnesemia: Status: Acute Category: Medical Code(s): E83.42 - Hypomagnesemia (6) Fall with injury: Status: Acute Qualifiers: Encounter type: initial encounter Qualified Code(s): W19.XXXA - Unspecified fall, initial encounter Category: Medical Code(s): W19.XXXA - Unspecified fall, initial encounter (7) Facial hematoma: Problem Comment: Left sided Status: Acute Qualifiers: Encounter type: initial encounter Qualified Code(s): S00.83XA - Contusion of other part of head, initial encounter Category: Medical Code(s): S00.83XA - Contusion of other part of head, initial encounter (8) Generalized weakness: Status: Acute Category: Medical Code(s): R53.1 - Weakness (9) Uterine mass: Status: Acute Category: Medical Code(s): N85.8 - Other specified noninflammatory disorders of uterus (10) Bilateral hydronephrosis: Status: Acute Category: Medical Code(s): N13.30 - Unspecified hydronephrosis (11) Lung nodules: Status: Acute Category: Medical Code(s): R91.8 - Other nonspecific abnormal finding of lung field (12) Hepatomegaly: Status: Acute Category: Medical Code(s): R16.0 - Hepatomegaly, not elsewhere classified (13) Hypothyroidism: Status: Acute Qualifiers: Hypothyroidism type: acquired Qualified Code(s): E03.9 - Hypothyroidism, unspecified Category: Medical Code(s): E03.9 - Hypothyroidism, unspecified (14) GERD (gastroesophageal reflux disease): Status: Acute Qualifiers: Esophagitis presence: without esophagitis Qualified Code(s): K21.9 - Gastro-esophageal reflux disease without esophagitis Category: Medical Code(s): K21.9 - Gastro-esophageal reflux disease without esophagitis Plan Assessment/plan: Management of this patient was discussed with the emergency department provider with agreement for hospital admission, patient/treatment. She is a 70-year-old female with a past medical history significant for alcohol abuse. Patient was found down at home per her . Suspected cause due to alcohol abuse. Alcohol level per ED workup 307. Alert and oriented x 4. Tremulous. Reports last drink yesterday. Notable left-sided facial hematoma likely due to fall. Workup also noted hypomagnesia and lactic acidosis. Imaging studies as noted above without acute finding per head CT. Multiple chronic and possible new non-emergent findings per imaging that include multiple uterine masses, enlarged uterus, bilateral hydronephrosis. Patient received Valium, magnesium 2 g, IV fluid bolus, MVI fluid. Continue monitor/treat withdrawal symptoms. 1. Alcohol use disorder with intoxication/withdrawal symptoms: Alcohol level noted 307 per ED workup. Alert and oriented x 4. Tremulous presentation. Found down at home, left-sided facial hematoma. Imaging studies as noted above without acute finding correlating with presentation. Prior similar episode March 2025 with altered mental status found down secondary to alcohol withdrawal. CIWA initiated while in the emergency department. Folic acid and MVI received initiated in the emergency department. Continue CIWA treat as appropriate for withdrawal symptoms. Patient currently without acute distress resting in bed comfortably. Vitals within normal limit. ? Patient feeling better this morning, no significant withdrawal symptoms. Interested in alcohol rehab, peer support consulted. Interested in naltrexone on discharge. ? Multivitamins daily. 2. Aspiration pneumonia, leukopenia: Multifocal opacities on CTA chest suggestive of aspiration pneumonitis. Initially treated as pneumonitis, with downtrending WBC will treat as pneumonia. Continue Zosyn 3.375 g. Follow-up full respiratory panel to rule out viral infection as the cause of leukopenia. ? WBC dropped from 2.5-1.7 today. Continue Zosyn. Consider vancomycin tomorrow if any worsening. However, patient feeling much better today. Follow-up full respiratory panel. Follow-up morning CBC. 3. UTI: Patient is having dysuria with abnormal UA. Continue IV Zosyn day 2. 4. Pulmonary nodules, chronic tobacco smoker: Multiple pulmonary nodules on CTA chest, current tobacco smoker. Started nicotine patch. Will refer to pulmonology for further evaluation and management. 5. Physical deconditioning: PT OT recommended SNF. Case management assisting with placement. 6. Hypomagnesemia: Magnesium 1.4 today, will replete per protocol. 7. Fall with injury/generalized weakness: Suspect underlying alcohol abuse secondary induced factor. As noted above patient with left-sided facial hematoma secondary to fall. Reports mid back discomfort. Imaging as noted above without acute finding per head CT or spine. Fall precautions, PT OT evaluation. 8. Uterine mass/bilateral hydronephrosis/hepatomegaly: Incidental findings per imaging study with numerous calcified masses are present within the uterus. The uterus measures up to 11.8 x 11.6 x 9.0 cm. Findings most compatible with enlarged leiomyomatous uterus. Suggested follow-up nonemergent pelvic ultrasound-and outpatient gynecology follow-up/evaluation. Mild bilateral hydronephrosis, slightly greater on the right. Proximal and mid aspect of the right and left utero are dilated to the level of the pelvis. Partial obstruction of the right and left kidney. As noted will likely need outpatient follow-up with gynecology and/or nephrology. Patient without pain/discomfort. Renal function WNL. Hepatomegaly->borderline enlargement of spleen, varices within the mid upper abdomen. ? SOFTWARE LICENSING SPECIALIST consulted, will plan for outpatient hysterectomy if needed. 9. Hypothyroidism: Continue home levothyroxine 75 mcg daily. 10. GERD: Resume home PPI, pantoprazole 40 mg. 11. Severe protein calorie malnutrition: Nutrition consulted, providing recommendations. Full Code DVT prophylaxis: SCD's Regular Diet
[2025-05-31 15:58] LABS: Adenovirus,PCR Not Detected (NotDetected); Chlamydophila Pneumoniae, PCR Not Detected (NotDetected); Coronavirus 19, PCR Not Detected (NotDetected); Coronovirus HKU1,PCR Not Detected (NotDetected); Influenza A, PCR Not Detected (NotDetected); Influenza AH1, 2009 Not Detected (NotDetected); Influenza AH1, PCR Not Detected (NotDetected); Influenza AH3,PCR Not Detected (NotDetected); Influenza B, PCR Not Detected (NotDetected); Mycoplasma Pneumoniae, PCR Not Detected (NotDetected); Parainfluenza 1, PCR Not Detected (NotDetected); Parainfluenza 2, PCR Not Detected (NotDetected); Parainfluenza 3, PCR Not Detected (NotDetected); Parainfluenza 4, PCR Not Detected (NotDetected)
[2025-05-31 16:00] VITALS: BP 153/82; PULSE 87; RESP 16; TEMP 37.1; O2SAT 99
[2025-05-31] MEDS: 0.9 % SODIUM CHLORIDE 1000ML 1,000 ML 100 ML IV (16:20)
[2025-05-31] MEDS: MULTIVITAMIN TABLET 1 EACH PO (18:58)
[2025-05-31 20:00] VITALS: BP 157/80; PULSE 86; RESP 17; TEMP 36.6; O2SAT 94
[2025-05-31] MEDS: diazePAM 5MG TABLET 5 MG PO (20:15)
[2025-05-31] MEDS: PANTOPRAZOLE 40MG TABLET 40 MG PO (20:16)
[2025-05-31] MEDS: MELATONIN 5MG TABLET 5 MG PO (20:16)
[2025-06-01 04:00] VITALS: BP 150/73; PULSE 79; RESP 16; TEMP 37.2; O2SAT 97; BMI 20.7
[2025-06-01] MEDS: guaiFENesin 200MG/10ML SYRUP UDC 200 MG PO ×2 (04:44→20:58)
[2025-06-01] MEDS: ACETAMINOPHEN 325MG TAB 650 MG PO ×2 (04:46→20:58)
[2025-06-01] MEDS: LEVOTHYROXINE 75MCG (0.075MG) TAB 75 MCG PO (06:03)
[2025-06-01] MEDS: PIPERCILLIN/TAZO 3.375 GM in 0.9 % SODIUM CHLORIDE 50 ML IV ×3 (06:03→23:30)
[2025-06-01] MEDS: ONDANSETRON 4MG/2ML VIAL 4 MG IV (06:30)
[2025-06-01 07:00] LABS: Albumin Level 3.5 g/dl (3.5-5.0); Chloride 105 mmol/L (98-107); Hematocrit 26.7 % (37.0-47.0); Hemoglobin 8.8 g/dL (12.2-16.2); Immature Granulocytes % 1.1 %; Mean Corpuscular HGB Conc 33.0 g/dL (31.8-35.4); Mean Corpuscular Hemoglobin 29.5 pg (27.0-31.2); Mean Corpuscular Volume 89.6 fl (81-99); Nucleated Red Blood Cells % 0 %; Platelet Count 62 K/mm3 (142-424); Potassium 4.1 mmoL/L (3.5-5.1); Red Blood Count 2.98 M/mm3 (4.20-5.40); Red Cell Distribution Width-SD 53.4 fL; Sodium 134 mmol/L (136-145)
[2025-06-01 07:03] LABS: Alanine Aminotransferase 20 U/L (12-78); Albumin/Globulin Ratio 1.2 (1.1-1.8); Alkaline Phosphatase 121 U/L (38-126); Anion Gap 10.1 mEq/L (5-15); Aspartate Amino Transferase 36 U/L (14-36); Bilirubin,Total 0.8 mg/dl (0.2-1.3); Blood Urea Nitrogen 6 mg/dl (7-17); Carbon Dioxide 23 mmol/L (22.0-30.0); Creatinine Clearance Estimated 50 mL/min (50-200); Creatinine,Serum 0.70 mg/dl (0.52-1.04); Estimated Glomerular Filt Rate 83 ml/min (>60); GFR (African American) 101 ML/MIN (>60); Globulin 2.9 g/dL (1.3-3.2); Total Protein,Serum 6.4 g/dl (6.3-8.2)
[2025-06-01 07:04] LABS: Calcium 9.8 mg/dl (8.4-10.2); Glucose 108 mg/dl (74-100); Magnesium 1.2 mg/dl (1.6-2.3)
[2025-06-01 07:26] LABS: Magnesium 1.2 mg/dl (1.6-2.3)
[2025-06-01 07:31] LABS: White Blood Count 1.8 K/mm3 (4.8-10.8)
[2025-06-01 08:00] VITALS: BP 139/89; PULSE 89; RESP 18; TEMP 36.6; O2SAT 95
[2025-06-01] MEDS: 0.9 % SODIUM CHLORIDE 1000ML 1,000 ML 100 ML IV (08:08)
--- NOTE | 2025-06-01 08:28 | PC.NURSE ---
lab called critical WBC of 1.8. Pts magnesium is 1.2, form faxed to pharmacy to for electrolyte replacement.
[2025-06-01] MEDS: NICOTINE 21MG/24HR PATCH 21 MG TD (09:28)
[2025-06-01] MEDS: MAGNESIUM SULFATE IN WATER 2 GM/50 ML PIGGYBACK IV ×3 (09:29→13:53)
[2025-06-01] MEDS: FUROSEMIDE 40MG/4ML VIAL 40 MG IV (09:29)
[2025-06-01 09:43] LABS: Total Cells Counted 100
[2025-06-01 09:44] LABS: RBC Morphology Normal
--- NOTE | 2025-06-01 11:11 | [facility].PHAAMS2 ---
- Antimicrobial Stewardship Review culture & sensitivity review Stewardship interventions: culture & sensitivity review (CURRENTLY ON ZOSYN, WBC LOW, AFEBRILE, NO GROWTH IN CX.)
--- NOTE | 2025-06-01 15:26 | P.PN_ITS ---
Subjective *Date: 06/01/25 *Time: 15:26 Interval history: Still feeling quite weak today. Remains neutropenic. Having loose stools but they are improving. Feels gas. Drinking a lot of milk. Discussed cutting back at this time. CIWA scores normalizing. Getting up with assistance with nursing. Patient does not want to go to rehab. Stable on room air Medical Exam Vital signs and Labs for Last 24 Hours: Vital Signs Temp Pulse Resp BP Pulse Ox O2 Del Method 06/01/25 08:00 97.8 F 89 18 139/89 95 Room Air 06/01/25 06:55 Room Air 06/01/25 05:00 Room Air 06/01/25 04:00 98.9 F 79 16 150/73 H 97 Room Air 06/01/25 03:00 Room Air 06/01/25 01:00 Room Air 05/31/25 23:00 Room Air 05/31/25 21:00 Room Air 05/31/25 20:00 97.8 F 86 17 157/80 H 94 L Room Air 05/31/25 20:00 Room Air 05/31/25 19:00 Room Air 05/31/25 17:00 Room Air 05/31/25 16:00 98.8 F 87 16 153/82 H 99 Room Air Intake and Output 05/31/25 06/01/25 06/01/25 23:59 07:59 15:59 Intake Total 580 / 3370 1530 / 2110 580 / 2110 Output Total 700 / 700 0 / 700 Balance 578 / 2718 830 / 1410 580 / 1410 Intake: Intake, Oral Amount 480 / 2220 480 / 960 480 / 960 Intake, Total IV Amount 100 / 1150 1050 / 1150 100 / 1150 0.9 % Sodium Chloride 1000ML 1, 1000 / 1000 000 ml @ 75 mls/hr IV .[id number] [facility] Rx#:[id number] Magnesium Sulfate in Water 2 gm 100 / 100 In 50 ml @ 50 mls/hr IV Q1H [facility]Y Rx#:[id number] Pipercillin/Tazo 3.375 gm In 0. 100 / 150 50 / 50 9 % Sodium Chloride 50 ml @ 100 mls/hr IV Q8H [facility] Rx#:[id number] Output: Output, Urine Amount 700 / 700 0 / 700 Other: Number of Unmeasured Voids 1 0 600 Number of Bowel Movements 2 Weight 58.649 kg Patient Weight 06/01/25 23:59 Weight 58.649 kg Laboratory Results - last 24 hr 05/31/25 15:50: Chlamy pneumoniae PCR Not detected, Adenovirus (PCR) Not detected, B. pertussis DNA (PCR) Not detected, Coronavirus OC43 (PCR) Not detected, Coronavirus HKU1 (PCR) Not detected, Coronavirus 229E (PCR) Not detected, SARS-CoV-2 (PCR) Not detected, Coronavirus NL63 (PCR) Not detected, Human Metapneumovir PCR Not detected, Influenza A (H1) PCR Not detected, Influ A (H1N1/09) PCR Not detected, Influenza A (H3) PCR Not detected, Influenza Type A (PCR) Not detected, Influenza Type B (PCR) Not detected, M. pneumoniae (PCR) Not detected, Parainfluenza 1 (PCR) Not detected, Parainfluenza 2 (PCR) Not detected, Parainfluenza 3 (PCR) Not detected, Parainfluenza 4 (PCR) Not detected, RSV (PCR) Not detected, Entero/Rhino (PCR) Not detected 06/01/25 06:27: WBC 1.8 L*, RBC 2.98 L, Hgb 8.8 L, Hct 26.7 L, MCV 89.6, MCH 29.5, MCHC 33.0, RDW 16.3, Plt Count 62 L, MPV 9.0, Neut % (Auto) 55.3, Lymph % (Auto) 33.1, [place] % (Auto) 5.5, Eos % (Auto) 3.9, Baso % (Auto) 1.1, Neut # (Auto) 1.0 L, Lymph # (Auto) 0.6 L, [place] # (Auto) 0.1, Eos # (Auto) 0.1, Baso # (Auto) 0.0, Total Counted 100, Neutrophils % (Manual) 59, Lymphocytes % (Manual) 31, Monocytes % (Manual) 6, Eosinophils % (Manual) 3, Basophils % (Manual) 1.0, Platelet Estimate Marked decrease, RBC Morphology Normal, Sodium 134 L, Potassium 4.1, Chloride 105, Carbon Dioxide 23, Anion Gap 10.1, BUN 6 L, Creatinine 0.70, Estimated Creat Clear 50, Estimated GFR 83, Est GFR ( Amer) 101, Glucose 108 H, Calcium 9.8, Magnesium 1.2 L D 06/01/25 06:27: Magnesium 1.2 L, Total Bilirubin 0.8, AST 36, ALT 20, Alkaline Phosphatase 121, Total Protein 6.4, Albumin 3.5, Globulin 2.9, Albumin/Globulin Ratio 1.2 I & O for Labs for Last 24 Hours: Intake & Output 05/29/25 05/30/25 05/31/25 06/01/25 23:59 23:59 23:59 23:59 Intake Total 2064 2030 / 2330 2890 / 3370 2109 / 2109 Output Total 2049 652 / 652 700 / 700 Balance 2064 - 2238 / 2718 1410 / 1410 Weight 60.736 kg 60.736 kg 58.604 kg 58.649 kg Constitutional: Present no acute distress, thin, chronically ill appearing and cooperative Comment:: Bruising of left eye, present on admission Respiratory: Present normal respiratory effort; Absent respiratory distress, stridor or wheezes Cardiac: Present Reg Rate and Rhythm GI: Present soft, tenderness (Mild in right lower quadrant. No guarding or rebound.) and normal bowel sounds; Absent guarding or rebound Extremities: Present normal inspection and full ROM Skin: Present intact; Absent erythema Neuro: Present Grossly Intact, alert, awake, oriented x 3 and moves all extremities Assessment and Plan *Assessment and plan (1) Alcohol abuse with intoxication, uncomplicated: Status: Acute Category: Medical Code(s): F10.120 - Alcohol abuse with intoxication, uncomplicated (2) Alcohol withdrawal: Status: Acute Qualifiers: Complication of substance-induced condition: uncomplicated Qualified Code(s): F10.930 - Alcohol use, unspecified with withdrawal, uncomplicated Category: Medical Code(s): F10.939 - Alcohol use, unspecified with withdrawal, unspecified (3) Lactic acidosis: Status: Acute Category: Medical Code(s): E87.20 - Acidosis, unspecified (4) Dehydration: Status: Acute Category: Medical Code(s): E86.0 - Dehydration (5) Hypomagnesemia: Status: Acute Category: Medical Code(s): E83.42 - Hypomagnesemia (6) Fall with injury: Status: Acute Qualifiers: Encounter type: initial encounter Qualified Code(s): W19.XXXA - Unspecified fall, initial encounter Category: Medical Code(s): W19.XXXA - Unspecified fall, initial encounter (7) Facial hematoma: Problem Comment: Left sided Status: Acute Qualifiers: Encounter type: initial encounter Qualified Code(s): S00.83XA - Contus ion of other part of head, initial encounter Category: Medical Code(s): S00.83XA - Contusion of other part of head, initial encounter (8) Generalized weakness: Status: Acute Category: Medical Code(s): R53.1 - Weakness (9) Uterine mass: Status: Acute Category: Medical Code(s): N85.8 - Other specified noninflammatory disorders of uterus (10) Bilateral hydronephrosis: Status: Acute Category: Medical Code(s): N13.30 - Unspecified hydronephrosis (11) Lung nodules: Status: Acute Category: Medical Code(s): R91.8 - Other nonspecific abnormal finding of lung field (12) Hepatomegaly: Status: Acute Category: Medical Code(s): R16.0 - Hepatomegaly, not elsewhere classified (13) Hypothyroidism: Status: Acute Qualifiers: Hypothyroidism type: acquired Qualified Code(s): E03.9 - Hypothyroidism, unspecified Category: Medical Code(s): E03.9 - Hypothyroidism, unspecified (14) GERD (gastroesophageal reflux disease): Status: Acute Qualifiers: Esophagitis presence: without esophagitis Qualified Code(s): K21.9 - Gastro-esophageal reflux disease without esophagitis Category: Medical Code(s): K21.9 - Gastro-esophageal reflux disease without esophagitis Plan Assessment/plan: Management of this patient was discussed with the emergency department provider with agreement for hospital admission, patient/treatment. She is a 70-year-old female with a past medical history significant for alcohol abuse. Patient was found down at home per her . Suspected cause due to alcohol abuse. Alcohol level per ED workup 307. Alert and oriented x 4. Tremulous. Reports last drink yesterday. Notable left-sided facial hematoma likely due to fall. Workup also noted hypomagnesia and lactic acidosis. Imaging studies as noted above without acute finding per head CT. Multiple chronic and possible new non- emergent findings per imaging that include multiple uterine masses, enlarged uterus, bilateral hydronephrosis. Patient received Valium, magnesium 2 g, IV fluid bolus, MVI fluid. Continue monitor/treat withdrawal symptoms. Showing improvement. Anticipate discharge in the next day or 2. Alcohol use disorder with intoxication/withdrawal symptoms: Alcohol level noted 307 per ED workup. Alert and oriented x 4. Tremulous presentation. Found down at home, left-sided facial hematoma. Imaging studies as noted above without acute finding correlating with presentation. Prior similar episode March 2025 with altered mental status found down secondary to alcohol withdrawal. CIWA initiated while in the emergency department. Folic acid and MVI received initiated in the emergency department. Continue CIWA treat as appropriate for withdrawal symptoms. Patient currently without acute distress resting in bed comfortably. Vitals within normal limit. ? No significant withdrawal symptoms. Interested in alcohol rehab as an outpatient. Peer support consulted. Interested in naltrexone on discharge. ? Multivitamins daily. Aspiration pneumonia, leukopenia: Multifocal opacities on CTA chest suggestive of aspiration pneumonitis. Initially treated as pneumonitis, with downtrending WBC will treat as pneumonia. Continue Zosyn 3.375 g. Follow-up full respiratory panel to rule out viral infection as the cause of leukopenia. ? White count remains low at 1.8. Hemoglobin 8.8. Stable on room air. - Continue Zosyn 3.375 g every 6 hours. - Respiratory panel negative UTI: Patient is having dysuria with abnormal UA. Continue IV Zosyn day 2. Pulmonary nodules, chronic tobacco smoker: Multiple pulmonary nodules on CTA chest, current tobacco smoker. Started nicotine patch. Will refer to pulmonology for further evaluation and management. Physical deconditioning: PT/OT recommended SNF. patient declined, will DC home with Hypomagnesemia: Magnesium 1.2 today, will replete per protocol. Fall with injury/generalized weakness: Suspect underlying alcohol abuse secondary induced factor. As noted above patient with left-sided facial hematoma secondary to fall. Reports mid back discomfort. Imaging as noted above without acute finding per head CT or spine. Fall precautions, PT OT evaluation. Uterine mass/bilateral hydronephrosis/hepatomegaly: Incidental findings per imaging study with numerous calcified masses are present within the uterus. The uterus measures up to 11.8 x 11.6 x 9.0 cm. Findings most compatible with enlarged leiomyomatous uterus. Suggested follow-up nonemergent pelvic ultrasound-and outpatient gynecology follow-up/evaluation. Mild bilateral hydronephrosis, slightly greater on the right. Proximal and mid aspect of the right and left utero are dilated to the level of the pelvis. Partial obstruction of the right and left kidney. As noted will likely need outpatient follow-up with gynecology and/or nephrology. Patient without pain/discomfort. Renal function WNL. Hepatomegaly->borderline enlargement of spleen, varices within the mid upper abdomen. ? IRRIGATION SUPERVISOR consulted, will plan for outpatient hysterectomy if needed. Hypothyroidism: Continue home levothyroxine 75 mcg daily. GERD: Resume home PPI, pantoprazole 40 mg. Severe protein calorie malnutrition: Nutrition consulted, providing recommendations. Full Code DVT prophylaxis: SCD's Regular Diet
[2025-06-01 16:00] VITALS: BP 152/75; PULSE 79; RESP 18; TEMP 36.8; O2SAT 98
[2025-06-01] MEDS: MULTIVITAMIN TABLET 1 EACH PO (18:05)
[2025-06-01 19:51] VITALS: BP 145/72; PULSE 81; RESP 18; TEMP 36.8; O2SAT 98
[2025-06-01] MEDS: MELATONIN 5MG TABLET 5 MG PO (20:58)
[2025-06-01] MEDS: PANTOPRAZOLE 40MG TABLET 40 MG PO (20:58)
--- NOTE | 2025-06-02 03:45 | PC.NURSE ---
Patient remains pleasantly alert and oriented x4. Visually impaired (patient baseline). She was observed to be resting in bed with eyes closed, respirations even and unlabored on room air, and no apparent distress throughout the majority of the night. Melatonin successful as a sleep aid. CIWA scores performed every 4 hours; no alcohol withdrawal symptoms have been observed or reported this shift. Scheduled medications were administered per MAR. Tylenol was administered per AUG for bilateral rib pain relief (particular to patient's right rib as well). Robitussin was also given per MAR for report of persistent coughing. Patient has not had a productive cough this shift, however; thus, a sputum sample remains uncollected. Physical assessment (see nursing shift biophysical intervention) was performed as appropriately this shift. Orbital bruising noted to left eye in healing stage. A female purewick remains in place for urination needs. She has consumed one carton of milk and a chocolate pudding cup for a bedtime snack. No diarrheal episodes this shift. At this time, the patient remains resting in bed without any further complaints. Call light within reach.
[2025-06-02 04:00] VITALS: BP 130/66; PULSE 71; RESP 16; TEMP 36.7; O2SAT 98; BMI 19.5
[2025-06-02] MEDS: PIPERCILLIN/TAZO 3.375 GM in 0.9 % SODIUM CHLORIDE 50 ML IV (06:05)
[2025-06-02] MEDS: LEVOTHYROXINE 75MCG (0.075MG) TAB 75 MCG PO (06:05)
[2025-06-02 07:24] LABS: Hematocrit 27.4 % (37.0-47.0); Hemoglobin 9.1 g/dL (12.2-16.2); Immature Granulocytes % 1.1 %; Mean Corpuscular HGB Conc 33.2 g/dL (31.8-35.4); Mean Corpuscular Hemoglobin 29.9 pg (27.0-31.2); Mean Corpuscular Volume 90.1 fl (81-99); Nucleated Red Blood Cells % 0 %; Platelet Count 65 K/mm3 (142-424); Red Blood Count 3.04 M/mm3 (4.20-5.40); Red Cell Distribution Width-SD 53.5 fL
[2025-06-02 07:32] LABS: Albumin Level 3.7 g/dl (3.5-5.0); Chloride 101 mmol/L (98-107); Potassium 3.8 mmoL/L (3.5-5.1); Sodium 134 mmol/L (136-145)
[2025-06-02 07:35] LABS: Alanine Aminotransferase 20 U/L (12-78); Albumin/Globulin Ratio 1.2 (1.1-1.8); Alkaline Phosphatase 125 U/L (38-126); Anion Gap 12.8 mEq/L (5-15); Aspartate Amino Transferase 33 U/L (14-36); Bilirubin,Total 0.8 mg/dl (0.2-1.3); Blood Urea Nitrogen 10 mg/dl (7-17); Calcium 9.8 mg/dl (8.4-10.2); Carbon Dioxide 24 mmol/L (22.0-30.0); Creatinine Clearance Estimated 47 mL/min (50-200); Creatinine,Serum 0.80 mg/dl (0.52-1.04); Estimated Glomerular Filt Rate 71 ml/min (>60); GFR (African American) 86 ML/MIN (>60); Globulin 3.1 g/dL (1.3-3.2); Glucose 111 mg/dl (74-100); Total Protein,Serum 6.8 g/dl (6.3-8.2)
[2025-06-02 07:54] LABS: Magnesium 1.7 mg/dl (1.6-2.3)
[2025-06-02 07:59] LABS: White Blood Count 1.9 K/mm3 (4.8-10.8)
[2025-06-02 08:00] VITALS: BP 145/69; PULSE 76; RESP 16; TEMP 36.4; O2SAT 96
[2025-06-02] MEDS: NICOTINE 21MG/24HR PATCH 21 MG TD (08:32)
[2025-06-02 10:41] LABS: RBC Morphology Normal; Total Cells Counted 100
--- NOTE | 2025-06-02 10:43 | EXP.DC.SUM ---
General Admission date:: 05/29/25 Discharge date: 06/02/25 HPI HPI HPI: Julia Sow is a 70-year-old female with past medical history significant for alcohol abuse, hypothyroidism, anemia and failure to thrive. Presents to [facility] via EMS after being found down by her . Reports that she has not had any bleeding since she went through menopause around 57 years old. She has previously been followed by a senior technical trainer in [place]. States that about 40 years ago she was told that she had a fibroid uterus. It has not caused her any problems. She denies any pelvic pain or pressure. She denies any vaginal or uterine bleeding since going through menopause. She is making urine well and states that she is peeing every 5 minutes. On review her creatinine is within normal limits. She currently is using a pure wick and the urine examined was normal in color and there was a significant amount. Her bowel movements are appropriate and states that they have not changed, the patient reports it is uncommon for her to sometimes go a week without having a bowel movement. States she had a bowel movement a couple days ago. Patient states she does live here in [place] with her . Hospital Course Hospital Course Hospital Course: She is a 70-year-old female with a past medical history significant for alcohol abuse. Patient was found down at home per her . Suspected cause due to alcohol abuse. Alcohol level per ED workup 307. Alert and oriented x 4. Tremulous. Reports last drink yesterday. Notable left-sided facial hematoma likely due to fall. Workup also noted hypomagnesia and lactic acidosis. Imaging studies as noted above without acute finding per head CT. Multiple chronic and possible new non-emergent findings per imaging that include multiple uterine masses, enlarged uterus, bilateral hydronephrosis. Treated for alcohol withdrawal with CIWA protocol. Overall did well. Has not needed benzos for 2 days prior to discharge. Stable discharge home. He was evaluated by therapy who recommended SNF, patient does not want SNF at this time. Will discharge home with home health. Has been stable for 24 hours prior to discharging home. Has been contacted to pick her up. Problems addressed as follows: Alcohol use disorder with intoxication/withdrawal symptoms: Alcohol level noted 307 per ED workup. Alert and oriented x 4. Tremulous presentation. Found down at home, left-sided facial hematoma. Imaging studies as noted above without acute finding correlating with presentation. Prior similar episode March 2025 with altered mental status found down secondary to alcohol withdrawal. CIWA initiated while in the emergency department. Folic acid and MVI received in the ER. Continue to monitor with CIWA protocol. Scores decreased and did not require benzodiazepines for 48 hours prior to discharge. supervisory training specialist consulted during admission. Assisted with discussions with patient. Patient initiated on naltrexone at discharge. Continue multivitamin. Aspiration pneumonia, leukopenia: Multifocal opacities on CTA chest suggestive of aspiration pneumonitis. Initially treated as pneumonitis, with downtrending WBC. Initiated on empiric antibiotics for pneumonia. Showed improvement. Stable on room air. White count remain low 1.8-1.9 but overall doing well. Complete 5 days of antibiotics with transition to Augmentin. Respiratory panel was negative. UTI: Patient having dysuria. Was initiated on Zosyn. Will complete 5 days total of antibiotics for UTI and aspiration pneumonia above. Urine with mixed marva however given symptoms, will treat empirically for UTI. Pulmonary nodules, chronic tobacco smoker: Multiple pulmonary nodules on CTA chest, current tobacco smoker. Started nicotine patch. Will refer to pulmonology for further evaluation and management. Physical deconditioning: PT/OT recommended SNF. patient declined, will DC home with Hypomagnesemia: Magnesium showed improvement with replacement. Fall with injury/generalized weakness: Suspect underlying alcohol abuse secondary induced factor. As noted above patient with left-sided facial hematoma secondary to fall. Reports mid back discomfort. Imaging as noted above without acute finding per head CT or spine. Fall precautions during admission. Therapy evaluated her and worked with her during admission. Will initiate home health PT/OT at discharge Uterine mass/bilateral hydronephrosis/hepatomegaly: Incidental findings per imaging study with numerous calcified masses are present within the uterus. The uterus measures up to 11.8 x 11.6 x 9.0 cm. Findings most compatible with enlarged leiomyomatous uterus. Suggested follow-up nonemergent pelvic ultrasound-and outpatient gynecology follow-up/evaluation. Mild bilateral hydronephrosis, slightly greater on the right. Proximal and mid aspect of the right and left utero are dilated to the level of the pelvis. Partial obstruction of the right and left kidney. Will plan for follow-up with gynecology as an outpatient. Patient without pain/discomfort. Renal function WNL. Hepatomegaly->borderline enlargement of spleen, varices within the mid upper abdomen. ? ENGINEERING SCIENTIST consulted, will plan for outpatient hysterectomy if needed. Hypothyroidism: Continue home levothyroxine 75 mcg daily. GERD: Resume home PPI, pantoprazole 40 mg. Severe protein calorie malnutrition: Nutrition consulted, providing recommendations. Total time spent on discharge 32 minutes in counseling, documentation, chart review, and direct care with patient. Exam Data for Last 24 hours Vital signs and Labs for Last 24 Hours: Temp Pulse Resp BP Pulse Ox O2 Del Method 98.9 F 79 16 150/73 H 97 Room Air 06/01/25 04:00 06/01/25 04:00 06/01/25 04:00 06/01/25 04:00 06/01/25 04:00 06/01/25 06:55 Laboratory Results - last 24 hr 05/31/25 15:50: Chlamy pneumoniae PCR Not detected, Adenovirus (PCR) Not detected, B. pertussis DNA (PCR) Not detected, Coronavirus OC43 (PCR) Not detected, Coronavirus HKU1 (PCR) Not detected, Coronavirus 229E (PCR) Not detected, SARS-CoV-2 (PCR) Not detected, Coronavirus NL63 (PCR) Not detected, Human Metapneumovir PCR Not detected, Influenza A (H1) PCR Not detected, Influ A (H1N1/09) PCR Not detected, Influenza A (H3) PCR Not detected, Influenza Type A (PCR) Not detected, Influenza Type B (PCR) Not detected, M. pneumoniae (PCR) Not detected, Parainfluenza 1 (PCR) Not detected, Parainfluenza 2 (PCR) Not detected, Parainfluenza 3 (PCR) Not detected, Parainfluenza 4 (PCR) Not detected, RSV (PCR) Not detected, Entero/Rhino (PCR) Not detected 06/01/25 06:27: WBC 1.8 L*, RBC 2.98 L, Hgb 8.8 L, Hct 26.7 L, MCV 89.6, MCH 29.5, MCHC 33.0, RDW 16.3, Plt Count 62 L, MPV 9.0, Neut % (Auto) 55.3, Lymph % (Auto) 33.1, [place] % (Auto) 5.5, Eos % (Auto) 3.9, Baso % (Auto) 1.1, Neut # (Auto) 1.0 L, Lymph # (Auto) 0.6 L, [place] # (Auto) 0.1, Eos # (Auto) 0.1, Baso # (Auto) 0.0, Total Counted 100, Neutrophils % (Manual) 59, Lymphocytes % (Manual) 31, Monocytes % (Manual) 6, Eosinophils % (Manual) 3, Basophils % (Manual) 1.0, Platelet Estimate Marked decrease, RBC Morphology Normal, Sodium 134 L, Potassium 4.1, Chloride 105, Carbon Dioxide 23, Anion Gap 10.1, BUN 6 L, Creatinine 0.70, Estimated Creat Clear 50, Estimated GFR 83, Est GFR ( Amer) 101, Glucose 108 H, Calcium 9.8, Magnesium 1.2 L D 06/01/25 06:27: Magnesium 1.2 L, Total Bilirubin 0.8, AST 36, ALT 20, Alkaline Phosphatase 121, Total Protein 6.4, Albumin 3.5, Globulin 2.9, Albumin/Globulin Ratio 1.2 I & O for Last 24 hours: Intake & Output 05/29/25 05/30/25 05/31/25 06/01/25 23:59 23:59 23:59 23:59 Intake Total 2064 2030 / 2330 2890 / 3370 1530 / 1530 Output Total 2049 652 / 652 700 / 700 Balance 2064 - 2238 / 2718 830 / 830 Weight 60.736 kg 60.736 kg 58.604 kg 58.649 kg Constitutional Constitutional: no acute distress, thin and chronically ill appearing Comments: Bruising over left side of the face. *Routine HEENT Exam Head: Present normocephalic Eye: Present EOMI and PERRL ENT: Present mucous membranes moist *Routine Neck Exam Neck: Present supple; Absent lymphadenopathy *Routine Respiratory Exam Respiratory: Present CTA bilaterally; Absent respiratory distress, rhonchi, wheezes or crackles *Routine Cardiovascular Exam Cardiovascular: Present RRR *Routine Abdominal Exam Abdominal: Present soft and normoactive bowel sounds; Absent tenderness *Routine Rectal Exam Patient deferred: visual exam *Routine Exam Patient deferred: external exam *Routine Extremities Exam Extremities: Absent cyanosis, clubbing or edema *Routine Skin Exam Skin: Present intact and warm; Absent rash *Routine Neurological Exam Neurological: Present alert, oriented X3 and moving all extremities; Absent altered mental status Results Data Completed and Pending Labs on day of discharge: Labs from last 24 hours 06/01/25 06/01/25 05/31/25 06:27 06:27 15:50 WBC 1.8 L* RBC 2.98 L Hgb 8.8 L Hct 26.7 L MCV 89.6 MCH 29.5 MCHC 33.0 RDW 16.3 Plt Count 62 L MPV 9.0 Neut % (Auto) 55.3 Lymph % (Auto) 33.1 [place] % (Auto) 5.5 Eos % (Auto) 3.9 Baso % (Auto) 1.1 Neut # (Auto) 1.0 L Lymph # (Auto) 0.6 L [place] # (Auto) 0.1 Eos # (Auto) 0.1 Baso # (Auto) 0.0 Total Counted 100 Neutrophils % (Manual) 59 Lymphocytes % (Manual) 31 Monocytes % (Manual) 6 Eosinophils % (Manual) 3 Basophils % (Manual) 1.0 Platelet Estimate Marked decrease RBC Morphology Normal Sodium 134 L Potassium 4.1 Chloride 105 Carbon Dioxide 23 Anion Gap 10.1 BUN 6 L Creatinine 0.70 Estimated Creat Clear 50 Estimated GFR 83 Est GFR ( Amer) 101 Glucose 108 H Calcium 9.8 Magnesium 1.2 L 1.2 L D Total Bilirubin 0.8 AST 36 ALT 20 Alkaline Phosphatase 121 Total Protein 6.4 Albumin 3.5 Globulin 2.9 Albumin/Globulin Ratio 1.2 Chlamy pneumoniae PCR Not detected Adenovirus (PCR) Not detected B. pertussis DNA (PCR) Not detected Coronavirus OC43 (PCR) Not detected Coronavirus HKU1 (PCR) Not detected Coronavirus 229E (PCR) Not detected SARS-CoV-2 (PCR) Not detected Coronavirus NL63 (PCR) Not detected Human Metapneumovir PCR Not detected Influenza A (H1) PCR Not detected Influ A (H1N1/09) PCR Not detected Influenza A (H3) PCR Not detected Influenza Type A (PCR) Not detected Influenza Type B (PCR) Not detected M. pneumoniae (PCR) Not detected Parainfluenza 1 (PCR) Not detected Parainfluenza 2 (PCR) Not detected Parainfluenza 3 (PCR) Not detected Parainfluenza 4 (PCR) Not detected RSV (PCR) Not detected Entero/Rhino (PCR) Not detected DS: Diagnosis Discharge Diagnosis (1) Alcohol abuse with intoxication, uncomplicated: Status: Acute Code(s): F10.120 - Alcohol abuse with intoxication, uncomplicated (2) Alcohol withdrawal: Status: Acute Code(s): F10.939 - Alcohol use, unspecified with withdrawal, unspecified Qualifiers: Complication of substance-induced condition: uncomplicated Qualified Code(s): F10.930 - Alcohol use, unspecified with withdrawal, uncomplicated (3) Lactic acidosis: Status: Acute Code(s): E87.20 - Acidosis, unspecified (4) Dehydration: Status: Acute Code(s): E86.0 - Dehydration (5) Hypomagnesemia: Status: Acute Code(s): E83.42 - Hypomagnesemia (6) Fall with injury: Status: Acute Code(s): W19.XXXA - Unspecified fall, initial encounter Qualifiers: Encounter type: initial encounter Qualified Code(s): W19.XXXA - Unspecified fall, initial encounter (7) Facial hematoma: Status: Acute Code(s): S00.83XA - Contusion of other part of head, initial encounter Qualifiers: Encounter type: initial encounter Qualified Code(s): S00.83XA - Contusion of other part of head, initial encounter Problem details: Left sided (8) Generalized weakness: Status: Acute Code(s): R53.1 - Weakness (9) Uterine mass: Status: Acute Code(s): N85.8 - Other specified noninflammatory disorders of uterus (10) Bilateral hydronephrosis: Status: Acute Code(s): N13.30 - Unspecified hydronephrosis (11) Lung nodules: Status: Acute Code(s): R91.8 - Other nonspecific abnormal finding of lung field (12) Hepatomegaly: Status: Acute Code(s): R16.0 - Hepatomegaly, not elsewhere classified (13) Hypothyroidism: Status: Acute Code(s): E03.9 - Hypothyroidism, unspecified Qualifiers: Hypothyroidism type: acquired Qualified Code(s): E03.9 - Hypothyroidism, unspecified (14) GERD (gastroesophageal reflux disease): Status: Acute Code(s): K21.9 - Gastro-esophageal reflux disease without esophagitis Qualifiers: Esophagitis presence: without esophagitis Qualified Code(s): K21.9 - Gastro-esophageal reflux disease without esophagitis Meds Home Medications and Allergies Home Medications ?Medication ?Instructions ?Recorded ?Confirmed ?Type pantoprazole 40 mg tablet,delayed 40 mg PO HS 30 days #30 tabs 09/14/24 05/30/25 Rx release levothyroxine 75 mcg tablet 75 mcg PO DAILY #30 tabs 01/04/25 05/30/25 Rx (Synthroid) amoxicillin 875 mg-potassium 1 tab PO BID 3 days #6 tabs 06/02/25 Rx clavulanate 125 mg tablet multivitamin with folic acid 400 1 tab PO 1700 30 days #30 tabs 06/02/25 Rx mcg tablet (Tab-A-Frank) naltrexone 50 mg tablet 50 mg PO DAILY #30 tabs 06/02/25 Rx New Prescriptions to Start Prescriptions: amoxicillin-pot clavulanate Allen Byrd multivitamin with folic acid [Tab-A-Frank] Allen Byrd naltrexone Allen Byrd Allergies Allergy/AdvReac Type Severity Reaction Status Date / Time No Known Allergies Allergy Verified 07/26/24 16:27 Discharge Plan Disposition Patient Disposition: Home Health Service Condition: Fair Discharge Order Discharge Orders: Discharge Order (Routine); Ordered 06/02/25 Ordered By: Allen Byrd Follow up Plan Follow up with: Narda Rothman DO [Staff Physician, ENGINEERING SCIENTIST] - Enter time for follow up Referral Note: please call for appointment Kavon Mcbride DO [Primary Care Provider, Family Practice] - 06/10/25 9:40 am Yudy Galaviz MD [Physician, Pulmonology] - Enter time for follow up Referral Note: lung nodules eval and monitoring please call for appointment Prescriptions/Medication Reconciliation: New multivitamin with folic acid [Tab-A-Frank] 400 mcg Tablet 1 tab PO 1700 30 Days Qty: 30 0RF naltrexone 50 mg tablet 50 mg PO DAILY Qty: 30 0RF amoxicillin-pot clavulanate 875-125 mg tablet 1 tab PO BID 3 Days Qty: 6 0RF Continued pantoprazole 40 mg Tablet,Delayed Release (Dr/Ec) 40 mg PO HS 30 Days Qty: 30 0RF levothyroxine [Synthroid] 75 mcg tablet 75 mcg PO DAILY Qty: 30 0RF Problem Reconciliation Problems Reviewed?: Yes Patient Discharge Instructions ACTIVITY: Continue current activity DIET: continue same diet Patient Instructions: Alcohol and Stress: There are Safer Ways to [place], How to Prevent Falls, DI for Drug or Alcohol Withdrawal Print Language: Sammarinese Providers Primary Care Provider: Kavon Mcbride Admit Provider: Adrián Pérez Attending Provider: Adrián Pérez
--- NOTE | 2025-06-04 11:03 | SW/DCPLANNER ---
Phoned patient's number x2. Unable to leave messages at this time. 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
== END 2025-06-02 13:50 | disposition home health service (06) | DRG 896 ==
LOC: ER 18:26 → 2ND 18:49
PROVIDERS: Nurse Practitioner Acute Care; Admitting Provider Student in an Organized Health Care Education/Training Program; Emergency Provider Emergency Medicine; PCP Student in an Organized Health Care Education/Training Program; Visit Provider Student in an Organized Health Care Education/Training Program
DX: F10.120 Alcohol abuse with intoxication, uncomplicated (principal); E43 Unspecified severe protein-calorie malnutrition; J69.0 Pneumonitis due to inhalation of food and vomit; E87.20 Acidosis, unspecified; N13.30 Unspecified hydronephrosis; N39.0 Urinary tract infection, site not specified; F10.139 Alcohol abuse with withdrawal, unspecified; E86.0 Dehydration; E83.42 Hypomagnesemia; S00.83XA Contusion of other part of head, initial encounter; R53.1 Weakness; N85.8 Other specified noninflammatory disorders of uterus; R91.8 Other nonspecific abnormal finding of lung field; R16.0 Hepatomegaly, not elsewhere classified; E03.9 Hypothyroidism, unspecified; K21.9 Gastro-esophageal reflux disease without esophagitis; D64.9 Anemia, unspecified; Y90.8 Blood alcohol level of 240 mg/100 ml or more; F10.129 Alcohol abuse with intoxication, unspecified; H53.8 Other visual disturbances; F17.200 Nicotine dependence, unspecified, uncomplicated; D25.9 Leiomyoma of uterus, unspecified; Y92.009 Unspecified place in unspecified non-institutional (private) residence as the place of occurrence of the external cause; Z79.890 Hormone replacement therapy; Z79.899 Other long term (current) drug therapy; Z68.21 Body mass index [BMI] 21.0-21.9, adult
CPT/HCPCS: 0223U; 36415; 70450; 71275; 72125; 74177; 76856; 80053; 80307; 80320; 81001; 82550; 82803; 83605; 83690; 83735; 84100; 84436; 84443; 84484; 85007; 85025; 85610; 85730; 89220; 93005; 97162; 97166; 97530; 99285; J1938; J2405; J2543; J3411; J3475; J7030; J7120; Q9967